=== PATIENT | female | born 1960 | race Caucasian/White ===

== ENCOUNTER → 2017-12-28 00:12 | Outpatient (CLI) | payer MEDICAID, SELFPAY ==
--- NOTE | 2017-12-28 10:35 | MERGE_ITS ---
*[facility]* *[facility]* [address] [place] [address] Date of study: 12/28/2017 Transthoracic Echocardiography M-mode, complete 2D, complete spectral Doppler, and color Doppler *STUDY CONCLUSIONS* Summary: 1. Left ventricle: Systolic function was mildly reduced. The estimated ejection fraction was 45-50%. Diffuse hypokinesis. Moderate hypokinesis of the apical myocardium. There was no evidence of elevated ventricular filling pressure by Doppler parameters. 2. Aortic valve: There was moderate regurgitation. 3. Mitral valve: There was moderate regurgitation. 4. Right ventricle: The cavity size was normal. Wall thickness was normal. Systolic function was normal. 5. Atrial septum: No defect or patent foramen ovale was identified. 6. Tricuspid valve: There was moderate regurgitation. 7. Pulmonary arteries: Pulmonary systolic pressure was in the range of 30mm Hg to 40mm Hg. 8. Inferior vena cava: The vessel was patent and normal in size. The respirophasic diameter changes were in the normal range (greater than or equal to 50%), consistent with normal central venous pressure. *PATIENT PRESENTATION* Height: 167.6cm ((66in) ) S/D Pressure: 120 / 73 Weight: 71.7kg ((157.7lb) ) BSA: 1.84m^2 Test start time: 12:40 PM. Test stop time: 01:40 PM. PERFORMING Unknown PERFORMING [facility] ORDERING Rashida Munoz REFERRING Rashida Munoz VEHICLE MAINTENANCE TECHNICIAN RT Areli (R)(TAY), TABITHA *PROCEDURE DATA* Procedure information: This study was interpreted by [facility]. Pertinent images and digital data are archived for permanent storage and are available for subsequent review. No prior study was available for comparison. Study status: Routine. Transthoracic echocardiography. M-mode, complete 2D, complete spectral Doppler, and color Doppler. A Transthoracic Echocardiogram was performed. Scanning was performed from the parasternal, apical, subcostal, and suprasternal notch acoustic windows. Images were obtained using an [id number] cardiac ultrasound machine. Image quality was adequate. Study completion: The patient tolerated the procedure well. History: PMH: Harsh s2 new systolic murmur. *CARDIAC ANATOMY* Left ventricle: Systolic function was mildly reduced. The estimated ejection fraction was 45-50%. Diffuse hypokinesis. Regional wall motion abnormalities: Moderate hypokinesis of the apical myocardium. The tissue Doppler parameters were normal. Diastolic parameters were normal for age. There was no evidence of elevated ventricular filling pressure by Doppler parameters. Aortic valve: Trileaflet. Doppler: There was no stenosis. There was moderate regurgitation. VTI ratio of LVOT to aortic valve: 0.64. Valve area (VTI): 2.3cm^2. Indexed valve area (VTI): 1.2cm^2/m^2. Peak velocity ratio of LVOT to aortic valve: 0.63. Valve area (Vmax): 2.3cm^2. Indexed valve area (Vmax): 1.2cm^2/m^2. Mean velocity ratio of LVOT to aortic valve: 0.62. Valve area (Vmean): 2.2cm^2. Indexed valve area (Vmean): 1.2cm^2/m^2. Mean gradient (S): 7.3mm Hg. Peak gradient (S): 13.8mm Hg. Aorta: Aortic root: The aortic root was normal in size. Ascending aorta: The ascending aorta was normal in size. Mitral valve: Doppler: There was no evidence for stenosis. There was moderate regurgitation. Valve area by pressure half-time: 4.5cm^2. Indexed valve area by pressure half-time: 2.4cm^2/m^2. Peak gradient (D): 2.2mm Hg. Left atrium: The atrium was normal in size. Atrial septum: No defect or patent foramen ovale was identified. Right ventricle: The cavity size was normal. Wall thickness was normal. Systolic function was normal. Pulmonic valve: Doppler: There was no evidence for stenosis. There was no significant regurgitation. Peak gradient (S): 4.4mm Hg. Tricuspid valve: Doppler: There was moderate regurgitation. Pulmonary artery: Poorly visualized. Pulmonary systolic pressure was in the range of 30mm Hg to 40mm Hg. Right atrium: The atrium was normal in size. Pericardium: There was no pericardial effusion. Systemic veins: Inferior vena cava: Well visualized. The vessel was patent and normal in size. The respirophasic diameter changes were in the normal range (greater than or equal to 50%), consistent with normal central venous pressure. Measurements Left ventricle Value Reference LV ID, ED, PLAX 4.6 cm 3.5 - 6.0 LV ID, ES, PLAX 3.4 cm 2.1 - 4.0 LV PW thickness, ED, PLAX 0.9 cm LV end-diastolic volume, 1-p A2C 114 ml LV ejection fraction, 1-p A2C 52 % LV end-diastolic volume, 1-p A4C 110 ml LV ejection fraction, 1-p A4C 46 % LV e', lateral 0.109 m/sec LV E/e', lateral 7 LV e', medial 0.077 m/sec LV E/e', medial 10 LV e', average 0.093 m/sec LV E/e', average 8 Ventricular septum Value Reference IVS thickness, ED, PLAX 1.2 cm LVOT Value Reference LVOT ID, A-P 2.1 cm LVOT area 3.6 cm^2 LVOT peak velocity, S 1.17 m/sec LVOT mean velocity, S 0.8 m/sec LVOT VTI, S 26.2 cm LVOT peak gradient, S 5.5 mm Hg LVOT mean gradient, S 2.9 mm Hg Stroke volume (SV), LVOT DP 94 ml Stroke index (SV/bsa), LVOT DP 51 ml/m^2 Aortic valve Value Reference Aortic valve peak velocity, S 1.9 m/sec Aortic valve mean velocity, S 1.29 m/sec Aortic valve VTI, S 41.2 cm Aortic mean gradient, S 7.3 mm Hg Aortic peak gradient, S 13.8 mm Hg VTI ratio, LVOT/AV 0.64 Aortic valve area, VTI 2.3 cm^2 Velocity ratio, peak, LVOT/AV 0.63 Aortic valve area, peak velocity 2.3 cm^2 Velocity ratio, mean, LVOT/AV 0.62 Aortic valve area, mean velocity 2.2 cm^2 Aortic valve area/bsa, mean velocity 1.2 cm^2/m^2 Aortic regurg deceleration 397 cm/s^2 Aortic regurg pressure half-time 333 ms Aorta Value Reference Aortic root ID, ED 3.4 cm Ascending aorta ID, A-P, S 2.8 cm Left atrium Value Reference LA ID, A-P, ES 3.6 cm LA ID/bsa, A-P 2.0 cm/m^2 <=2.2 LA area, ES, A4C 19.8 cm^2 8.8 - 23.4 LA area, ES, A2C 19 cm^2 LA volume/bsa, ES, 1-p A4C 39 ml/m^2 LA volume, ES, 2-p 62 ml LA volume/bsa, ES, 2-p 34 ml/m^2 LA/aortic root ratio 1.05 Mitral valve Value Reference Mitral E-wave peak velocity 0.75 m/sec Mitral A-wave peak velocity 0.79 m/sec Mitral deceleration time 169 ms 150 - 230 Mitral pressure half-time 49 ms Mitral peak gradient, D 2.2 mm Hg Mitral E/A ratio, peak 0.95 Mitral valve area, PHT, DP 4.5 cm^2 Pulmonary veins Value Reference Pulmonary vein peak velocity, S 0.63 m/sec Pulmonary vein peak velocity, D 0.45 m/sec Pulmonary vein velocity ratio, peak, 1.39 S/D Tricuspid valve Value Reference Tricuspid regurg peak velocity 2.9 m/sec Tricuspid peak RV-RA gradient 34.4 mm Hg Right atrium Value Reference RA area, ES, A4C 14.2 cm^2 8.3 - 19.5 Pulmonic valve Value Reference Pulmonic peak gradient, S 4.4 mm Hg Legend: (L) and (H) debbie values outside specified reference range. I have personally reviewed the images and have reviewed and edited the reported findings. Electronically signed by Hammad Granados MD 12/28/2017 18:10
== END ==
PROVIDERS: PCP Physician Assistant Medical; Visit Provider Psychiatry & Neurology Neurology
DX: R01.1 Cardiac murmur, unspecified (principal); I08.3 Combined rheumatic disorders of mitral, aortic and tricuspid valves
CPT/HCPCS: 93306

== ENCOUNTER → 2018-01-01 01:06 | Outpatient (CLI) | payer MEDICAID, SELFPAY ==
--- NOTE | 2018-01-01 09:19 | DI.REPORT_ITS ---
SYMPTOM/DIAGNOSIS: RIGHT HAND JOINT PAIN M79.643, LEFT HAND POINT PAIN M79.643 RIGHT HAND: Three views. No priors. There is mild periarticular spurring seen at the interphalangeal joints of the hand. The findings are most marked at the DIP joints of the index, ring and little fingers. The metacarpal phalangeal joints are well maintained as are the joints in the wrist. No acute fracture, dislocation, lytic or sclerotic lesions is seen. The soft tissues are unremarkable. IMPRESSION: Mild degenerative changes of the right hand. LEFT HAND: Three views. No priors. Mild periarticular spurring is seen at the interphalangeal joints of the hand. The findings are most marked at the DIP joint of the left little finger. The metacarpal phalangeal joints and joints in the wrist are unremarkable. The bones are intact and normally mineralized. The soft tissues are unremarkable. IMPRESSION: Mild degenerative changes of the left hand.
== END ==
PROVIDERS: PCP Physician Assistant Medical; Visit Provider Physician Assistant Medical
DX: M79.641 Pain in right hand (principal); M19.041 Primary osteoarthritis, right hand; M79.642 Pain in left hand; M19.042 Primary osteoarthritis, left hand
CPT/HCPCS: 73130

== ENCOUNTER 2018-02-19 00:35 | Outpatient (CLI) | payer MEDICAID, SELFPAY ==
--- NOTE | 2018-02-19 10:07 | DI.MAMMO_ITS ---
SYMPTOM/DIAGNOSIS: SCREENING, Z12.31, HEALTH MAINTENANCE, Z00.8 MAMMOGRAM: Mammograms were interpreted according to the usual protocol including computer analysis with CAD system, tomosynthesis and C view imaging. Comparison with prior examinations. Breast density B. No masses or microcalcifications are seen. There is nothing to suggest malignancy. IMPRESSION: Negative mammogram. Routine screening is recommended. Category I. MQSA ASSESSMENT OF FINDINGS: Negative. Category 1. Patient will receive a letter notifying them of these results. BI-RADS category B. There are scattered areas of fibroglandular density.
== END 2018-02-19 00:55 ==
PROVIDERS: PCP Physician Assistant Medical; Visit Provider Physician Assistant Medical
DX: Z12.31 Encounter for screening mammogram for malignant neoplasm of breast (principal)
CPT/HCPCS: 77063; 77067

== ENCOUNTER 2018-03-01 00:26 | Outpatient (CLI) | payer MEDICAID, SELFPAY ==
--- NOTE | 2018-03-01 10:10 | DI.RAD_ITS ---
SYMPTOMS/DIAGNOSIS: DIFFICULTY SWALLOWING, R13.10, GERD, K21.9 UPPER GI AND BARIUM SWALLOW: Fluoroscopy Time: 1 min 15 sec Routine examination was performed. PA and lateral chest was obtained. The heart size and pulmonary vasculature are within normal limits. The lungs are clear and well expanded. No effusions or pneumothoraces are identified. IMPRESSION: No acute pulmonary process. Barium swallow and upper GI was performed according to protocol. There is a normal swallowing mechanism. No gastroesophageal reflux or aspiration was identified during the examination. No strictures, ulcers, intrinsic or extrinsic masses are seen in the esophagus, stomach or proximal duodenum. IMPRESSION: Negative examination.
[2018-03-01] MEDS: Barium Sulfate 60% W/V 355 ML BTL PO (10:39)
== END 2018-03-01 00:46 ==
PROVIDERS: PCP Physician Assistant Medical; Visit Provider Physician Assistant Medical
DX: R13.19 Other dysphagia (principal); K21.9 Gastro-esophageal reflux disease without esophagitis
CPT/HCPCS: 74220; 74247; J3490

== ENCOUNTER 2018-06-07 09:20 | Emergency (ER) | payer MEDICAID, SELFPAY ==
[2018-06-07] VITALS (21 sets, daily range): BP systolic 102–139; BP diastolic 60–77; PULSE 52–71; RESP 16–20; TEMP 36.6–37; O2SAT 94–100
--- NOTE | 2018-06-07 09:30 | DI.RAD_ITS ---
SYMPTOMS/DIAGNOSIS: SOB, COUGH, PRODUCTIVE SPUTUM PORTABLE AP CHEST: Comparison is made with 4Oct18. The cardiac and mediastinal contours have a normal appearance. The lungs are reasonably well inflated and clear. No mass, infiltrate or effusion is seen. There are no visible emphysematous or fibrotic changes. IMPRESSION: Negative portable chest.
--- NOTE | 2018-06-07 09:52 | ED.GENADUL_ITS ---
Discharge Plan Disposition Patient Disposition: HOME Condition: Good Discharge Details Chief Complaint: SOB Clinical Impression: Bundle branch block, left, URI (upper respiratory infection), Cough Reason For Visit: JF Primary Care Provider: Shashi Verma ED Provider: Gm Zelaya Home Meds and New Rx's Prescriptions: New benzonatate [Tessalon Perles] 100 mg capsule 100 mg PO TID PRN (Reason: cough) Qty: 20 RF: 0 No Action conjugated estrogens [Premarin] 0.625 MG tablet 0.625 mg PO DAILY RF: 0 fluticasone 16 GM spray,suspension 50 mcg NS BID RF: 0 ibuprofen 800 MG tablet 800 mg PO TID RF: 0 tramadol [Ultram] 50 MG tablet 50 mg PO BID RF: 0 paroxetine HCl 20 MG tablet 20 mg PO DAILY RF: 0 lisdexamfetamine [Vyvanse] 70 MG capsule 70 mg PO DAILY RF: 0 lurasidone [Latuda] 40 MG tablet 40 mg PO DAILY RF: 0 gabapentin 300 MG capsule 300 mg PO BID RF: 0 trazodone 100 MG tablet 300 mg PO HS RF: 0 pantoprazole 40 MG tablet,delayed release (DR/EC) 40 mg PO DAILY RF: 0 polyethylene glycol 3350 17 GM powder in packet 17 gm PO Q2D RF: 0 docusate sodium [Colace] 100 MG capsule 100 mg PO DAILY PRN PRNRF: 0 levothyroxine 50 MCG tablet 50 mcg PO DAILY RF: 0 pramipexole 0.25 MG tablet 0.25 mg PO DAILY RF: 0 albuterol sulfate [ProAir HFA] 200 PUFF HFA aerosol inhaler 2 puff Inhalation Q4H PRN PRNRF: 0 Discharge Instructions Instructions: Upper Respiratory Infection (ED), Acute Cough (ED) Additional Instructions: Please take medications as directed. Please follow-up with your seamer operator, they will call for next appointment. If you notice any worsening of your symptoms, or any new symptoms such as vomiting, diarrhea, fever, chills, shortness of breath, chest pain, numbness, weakness, or fainting , please return immediately to the emergency department for reevaluation. Please follow up with your primary care provider as soon as possible for reassessment and reevaluation. As always, it was a pleasure participating in your medical care today. Referrals: Shashi Verma PA [Primary Care Provider] - Medical Decision Making This is a 58-year-old female who presents for evaluation of shortness of breath for last 7 days particularly worsening over the last 2 days. There is no associated chest pain, no exertional chest pain. She has no history of cardiac disease. Physical exam demonstrates clear lung sounds. She does have productive yellow sputum with her associated cough and some chills. She does have occasional loose stool. Physical exam is otherwise unremarkable, vital signs are reassuring. I feel the patient signs and symptoms are clinically consistent with a viral bronchitis versus potential pneumonia. Atypical Legi onella is on the differential with the patient's associated loose stool. I feel PE is less likely but with her estrogen use and clear lung sounds is also does remain on the differential. We will perform a cardiac workup, evaluate for any potential infectious etiology, and reassess 12: 20 Patient's laboratory workup is returned relatively benign, no significant abnormalities. Her d-dimer is elevated though, which does increase concern for PE. We will get a CT angiogram for further evaluation. Renal function is normal, urinalysis is benign. I do feel much of the patient's symptoms are r elated to an upper respiratory infection, most likely viral. Of note though the patient's EKG does show evidence of a left bundle branch block which does appear to be new compared to her EKG from 10/28/14. I did contact the seamer operator Dr. Sauceda, and discussed the case, and EKG findings with him. 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 Cardiology does recommend follow-up with a seamer operator though on an outpatient basis. Her echocardiogram from 12/28/17 has been included here. 1:06 PM Patient's laboratory workup, and CT image has returned negative per our radiologist Dr. Palacios. No acute process with a negative workup I feel the patient can be safely discharged home. I feel her signs and symptoms most likely secondary to a viral upper respiratory infection however there may be a mild cardiac component with the left bundle branch block. She has had an echocardiogram in December, however cardiology does recommend a new echo on an outpatient basis. We will set this up for her. I will give the patient an inhaler and Tessalon Perles for antitussive effect. Recommend close follow-up with her PCP. With 2- troponins, and an EKG that is not a STEMI equivalent I feel she can be discharged home with this close follow-up. This plan was discussed with cardiology and they do agree. I have extensively reviewed the treatment plan and discharge instructions with the patient. I have addressed all patient concerns at this time. The patient was made aware of what symptoms to monitor for that would warrant a return to the emergency department. Discussed the plan with the patient, they demonstrate verbal understanding and agreement with our assessment and plan at this time. 9: 52 EKG Rate 58, sinus bradycardia with a left bundle branch block, [place] 160, QTc 471, QRS 139, negative for SCARBOSSA criteria previous EKG from 10/28/14 demonstrates valentin l sinus rhythm at that time. Summary: 1. Left ventricle: Systolic function was mildly reduced. The estimated ejection fraction was 45-50%. Diffuse hypokinesis. Moderate hypokinesis of the apical myocardium. There was no evidence of elevated ventricular filling pressure by Doppler parameters. 2. Aortic valve: There was moderate regurgitation. 3. Mitral valve: There was moderate regurgitation. 4. Right ventricle: The cavity size was normal. Wall thickness was normal. Systolic function was normal. 5. Atrial septum: No defect or patent foramen ovale was identified. 6. Tricuspid valve: There was moderate regurgitation. 7. Pulmonary arteries: Pulmonary systolic pressure was in the range of 30mm Hg to 40mm Hg. 8. Inferior vena cava: The vessel was patent and normal in size. The respirophasic diameter changes were in the normal range (greater than or equal to 50%), consistent with normal central venous pressure. HPI General Date/Time Provider Initiated Documentation: 06/07/18 09:28 . HPI Narrative: This is a 58-year-old female with a past medical history of anxiety and PTSD who presents today for evaluation of cough and shortness of breath. The patient states that for the last 7 days she has felt fatigued, and during the last 2 days she has noticed difficulty breathing, and mild shortness of breath. She denies any significant chest pain, chest pressure, arm, neck, or shoulder pain. She does admit to productive cough with yellow and green sputum. She does admit to subjective chills but denies any fever. She also does admit to occasional loose stool over the last 2 days. She denies any recent antibiotic use, foreign travel, or other sick contacts with diarrhea. She denies any recent contact with cold air conditioners or water towers. Patient does take estrogen secondary to a history of a hysterectomy. Patient denies any other complaints. Denies PE risk factors such as recent long car rides, immobilization, recent surgery, prior history of DVT or PE, family history of PE or DVT, morbid obesity, current smoking, hemoptysis, history of cancer. She denies any history of COPD. Related Data Home Medications Medication Instructions Recorded Confirmed pantoprazole 40 mg PO DAILY 01/18/13 12/21/17 trazodone 300 mg PO HS 01/18/13 12/21/17 conjugated estrogens [Premarin] 0.625 mg PO DAILY 01/21/15 12/21/17 fluticasone 50 mcg NS BID spray 01/21/15 08/29/17 albuterol sulfate [ProAir HFA] 2 puff INHALATION Q4H PRN PRN 08/29/17 12/21/17 docusate sodium [Colace] 100 mg PO DAILY PRN PRN 08/29/17 12/21/17 levothyroxine 50 mcg PO DAILY 08/29/17 12/21/17 polyethylene glycol 3350 17 gm PO Q2D 08/29/17 12/21/17 pramipexole 0.25 mg PO DAILY 08/29/17 12/21/17 ibuprofen 800 mg PO TID tab-cap 11/01/17 lisdexamfetamine [Vyvanse] 70 mg PO DAILY tab-cap 11/01/17 12/21/17 lurasidone [Latuda] 40 mg PO DAILY tab-cap 11/01/17 12/21/17 paroxetine HCl 20 mg PO DAILY tab-cap 11/01/17 12/21/17 tramadol [Ultram] 50 mg PO BID tab-cap 11/01/17 12/21/17 gabapentin 300 mg PO BID tab-cap 01/24/18 benzonatate [Tessalon Perles] 100 mg PO TID PRN #20 cap 06/07/18 Previous Rx's Medication Instructions Recorded benzonatate [Tessalon Perles] 100 mg PO TID PRN #20 cap 06/07/18 Allergies Allergy/AdvReac Type Severity Reaction Status Date / Time oxycodone HCl Allergy Mild Itching Unverified 01/24/18 14:00 [From OxyContin] diazepam [From Valium] AdvReac Mild Increase Unverified 01/24/18 14:00 of depressive symptoms General Stated Complaint: SOB ADINA: 3 Review of Systems Review of Systems All systems reviewed & are unremarkable except as noted in HPI and below PFSH Medical History Bipolar I disorder Hyperlipidemia IBS (irritable bowel syndrome) Iron deficiency anemia Obesity Surgical History Abdominal hysterectomy Colonoscopy - MAC EGD - MAC Replacement of total knee joint Family History Mother No problems noted. Father No problems noted. Social History Smoking/Tobacco Use Status: Never Exam Narrative Exam Narrative: 1.Const: Well-nourished, Well-developed, appearing stated age 2.Eyes: PERRL, no conjunctival injection, and symmetrical lids. 3.ENT: Atraumatic external nose and ears. Moist MM. Neck: Symmetric, trachea midline, No thyromegaly. 4.CVS: +S1/S2, No murmurs or gallops. Peripheral pulses 2+ and equal in all extremities. Brisk capillary refill in all extremities. 5.RESP: Unlabored respiratory effort. Clear to auscultation bilaterally. No wheezes rales or rhonchi. 6.GI: Soft, Nontender/Nondistended, No hepatosplenomegaly. No guarding or rebound. No abdominal tenderness. 7.MSK: Normocephalic/Atraumatic, Extremities w/o deformity or ttp No cyanosis or clubbing, Normal movement of all extremities. No calf tenderness. 8.Skin: Warm, Dry. No rashes or lesions. 9.Neuro: backroom associate II-XII grossly intact. Sensation grossly intact, no focal neurologic deficits. 10.Psych: (AAO) x3. Appropriate mood and affect Course Vital Signs Temperature 36.6 C 06/07/18 09:22 Pulse 61 06/07/18 09:22 Respiratory Rate 20 06/07/18 09:22 Blood Pressure 127/66 06/07/18 09:22 Pulse Oximetry 99 06/07/18 09:22 Temperature 36.6 C 06/07/18 09:22 Temperature Source Temporal Artery Scan 06/07/18 09:22 Pulse 61 06/07/18 09:22 Respiratory Rate 16 01/10/19 09:31 Respiratory Effort 06/07/18 09:31 Respiratory Depth Shallow 06/07/18 09:31 Respiratory Pattern Normal 06/07/18 09:31 Blood Pressure 127/66 06/07/18 09:22 Blood Pressure Position Sitting 06/07/18 09:22 Pulse Oximetry 99 06/07/18 09:22 Oxygen Delivery Method Room Air 06/07/18 09:22 Oxygen Flow Rate 0 06/07/18 09:22
[2018-06-07 09:58] LABS: Abs Immature Grans 0.01 k/cumm (0.0-0.09); Absolute Basophil Count 0.02 k/cumm (0.0-0.2); Absolute Eosinophil Count 0.08 k/cumm (0.0-0.7); Absolute Lymphocyte Count 0.92 k/cumm (1.2-3.4); Absolute Neutrophil Count 4.11 k/cumm (1.2-6.7); Basophils % 0.4; Eosinophils % 1.4; HCT 43.5 % (36.0-46.0); HGB 14.4 g/dL (12.0-15.5); Immature Grans % 0.2; Lymphocytes % 16.3; Mean Corp. HGB Concentration 33.1 g/dL (32.0-36.0); Mean Corpuscular Hemoglobin 29.4 pg (27.0-33.0); Mean Platelet Volume 9.4 fL (8.0-11.0); Monocytes % 8.9; Neutrophils % 72.8; Platelet Count 197 x1000/uL (130-400); RBC 4.89 m/cumm (4.00-5.20); White Blood Cell Count 5.64 k/cumm (4.4-10.8)
[2018-06-07 10:13] LABS: ALT 32 U/L (12-78); AST 25 U/L (15-37); Albumin 4.1 g/dL (3.4-5.0); Alkaline Phosphatase 80 U/L (46-116); Anion Gap 7.8 mmol/L (3-11); BUN 10 mg/dL (7-18); Bilirubin, Total 0.6 mg/dL (0.2-1.0); CO2 33.2 mmol/L (21.0-32.0); CREATININE 0.71 mg/dL (0.55-1.02); Calcium 9.7 mg/dL (8.5-10.1); Chloride 98 mmol/L (98-107); Glucose 102 mg/dL (70-100); Potassium 4.2 mmol/L (3.5-5.1); Sodium 139 mmol/L (136-145); Total Protein 7.9 g/dL (6.4-8.2)
[2018-06-07 10:14] LABS: Troponin I < 0.02 ng/mL (0.00-0.06)
[2018-06-07 10:28] LABS: D-Dimer 637 ng/mlFEU (<500)
[2018-06-07] MEDS: Normal Saline Flush 10 ML SYR IVP (10:32)
--- NOTE | 2018-06-07 10:53 | DI.CT_ITS ---
SYMPTOMS/DIAGNOSIS: ELEVATED D DIMER CHEST CT FOR PULMONARY EMBOLISM: CT angiography was performed with multi slice acquisition and multi planar and 3D reconstruction. There is no evidence of pulmonary emboli or aortic dissection. The lungs appear clear. No pleural or pericardial effusions are seen. There is a tiny hiatal hernia. There is some artifact on the images of the upper abdomen secondary to the patient's arm position. No gross abnormality is identified in the liver. IMPRESSION: No acute abnormality.
[2018-06-07 11:16] LABS: Bilirubin Negative (Negative); Blood Negative (Negative); Clarity Clear; Glucose Negative (Negative); Ketones Negative (Negative); Leukocyte Esterase Negative (Negative); Nitrite Negative (Negative); Specific Gravity 1.015 (1.005-1.025); Urobilinogen 0.2 EU/dL (Up TO 0.2); pH 8.5 (5-8)
[2018-06-07 12:53] LABS: Troponin I < 0.02 ng/mL (0.00-0.06)
[2018-06-07] MEDS: Omnipaque 350 MG/ML 100 ML BTL IJ (12:55)
--- NOTE | 2018-06-08 13:49 | PDOC.ERCMPRO ---
Care Management Progress Note 06/08-Dr. Zelaya requested assistance with a cardiology appt within a month for new left bundle branch block. Referral faxed to cardiology this am.
== END 2018-06-07 13:29 | disposition home or self-care (01) ==
PROVIDERS: Emergency Provider Student in an Organized Health Care Education/Training Program; PCP Physician Assistant Medical
DX: I44.7 Left bundle-branch block, unspecified (principal); J06.9 Acute upper respiratory infection, unspecified
CPT/HCPCS: 36415; 71275; 80053; 87449; 93005; 99285; 71045; 81003; 84484; 85025; 85379; 93010; 99284; J3490

== ENCOUNTER 2018-09-20 09:07 | Outpatient (CLI) | payer MEDICAID, SELFPAY ==
[2018-09-20 09:46] LABS: Abs Immature Grans 0.01 k/cumm (0.0-0.09); Absolute Basophil Count 0.02 k/cumm (0.0-0.2); Absolute Eosinophil Count 0.08 k/cumm (0.0-0.7); Absolute Lymphocyte Count 1.76 k/cumm (1.2-3.4); Absolute Monocyte Count 0.38 k/cumm (0.11-0.7); Absolute Neutrophil Count 1.41 k/cumm (1.2-6.7); Basophils % 0.5; Eosinophils % 2.2; HGB 12.9 g/dL (12.0-15.5); Immature Grans % 0.3; Lymphocytes % 48.1; Mean Corp. HGB Concentration 33.1 g/dL (32.0-36.0); Mean Corpuscular Hemoglobin 29.7 pg (27.0-33.0); Mean Corpuscular Volume 89.9 fL (80-95); Mean Platelet Volume 9.5 fL (8.0-11.0); Monocytes % 10.4; Neutrophils % 38.5; Platelet Count 203 x1000/uL (130-400); RBC 4.34 m/cumm (4.00-5.20); RBC Distribution Width 12.6 % (11.7-14.6); White Blood Cell Count 3.66 k/cumm (4.4-10.8)
[2018-09-20 09:54] LABS: Hemoglobin A1C 5.2 % (4.5-6.2)
[2018-09-20 11:13] LABS: Vitamin D 25 Total 26.4 ng/ml (30-100)
[2018-09-20 11:16] LABS: ALT 36 U/L (12-78); AST 38 U/L (15-37); Albumin 3.9 g/dL (3.4-5.0); Alkaline Phosphatase 68 U/L (46-116); Anion Gap 8.3 mmol/L (3-11); BUN 17 mg/dL (7-18); Bilirubin, Total 0.9 mg/dL (0.2-1.0); CO2 29.7 mmol/L (21.0-32.0); CREATININE 0.65 mg/dL (0.55-1.02); Calcium 9.1 mg/dL (8.5-10.1); Chloride 101 mmol/L (98-107); Cholesterol 263 mg/dL (50-200); Glucose 88 mg/dL (70-100); HDL Cholesterol 98 mg/dL (40-60); LDL CHOLESTEROL 155 mg/dL (<100); Magnesium 1.8 mg/dL (1.8-2.4); Potassium 3.9 mmol/L (3.5-5.1); Sodium 139 mmol/L (136-145); TSH 2.86 uIU/mL (0.358-3.74); Total Protein 6.8 g/dL (6.4-8.2); Triglyceride 28 mg/dL (30-150); Vitamin B12 905 pg/mL (193-986)
== END 2018-09-20 09:27 ==
PROVIDERS: PCP Physician Assistant Medical; Visit Provider Nurse Practitioner Psychiatric/Mental Health
DX: F33.0 Major depressive disorder, recurrent, mild (principal)
CPT/HCPCS: 36415; 80053; 80061; 82306; 83721; 82607; 83036; 83735; 84443; 85025

== ENCOUNTER 2018-10-15 21:40 | Outpatient (REF) | payer MEDICAID, SELFPAY ==
[2018-10-17 11:14] LABS: Lyme Ab w Rflx to Lyme Confirm Negative
[2018-10-18 00:19] LABS: Anaplasma phagocytophilum Negative (Negative); B. miyamotoi PCR Negative (Negative); Babesia divergens/MO-1 Negative (Negative); Babesia duncani Negative (Negative); Babesia microti Negative (Negative); Ehrlichia chaffeensis Negative (Negative); Ehrlichia ewingii/canis Negative (Negative); Ehrlichia muris eauclairensis Negative (Negative)
== END 2018-10-15 22:00 ==
LOC: NCHCN 21:40
PROVIDERS: PCP Physician Assistant Medical; Visit Provider Physician Assistant Medical
DX: M25.50 Pain in unspecified joint (principal)
CPT/HCPCS: 86618; 87798

== ENCOUNTER 2018-10-29 00:31 | Outpatient (CLI) | payer MEDICAID, SELFPAY ==
--- NOTE | 2018-10-29 08:35 | DI.RAD_ITS ---
SYMPTOM/DIAGNOSIS: NECK PAIN, M54.2, LOW BACK PAIN, M54.5 CERVICAL SPINE: Five views were obtained. The intervertebral disc spaces are fairly well maintained. Mild hypertrophic spurring of the vertebral endplates and articular facets is noted. Neural foramina appear fairly well maintained on oblique views. No other significant bony abnormality is seen. CONCLUSION: Mild DJD of the cervical spine. LUMBOSACRAL SPINE: Five views were obtained. The intervertebral disc spaces appear fairly well maintained. There are hypertrophic changes involving vertebral endplates, particularly at L 2-3 and there are hypertrophic changes involving the articular facets as well. There is a slight left convex lumbar scoliosis. There is no evidence of spondylolysis or spondylolisthesis. No fracture is seen. CONCLUSION: Degenerative changes of the lumbar spine as described above.
== END 2018-10-29 00:51 ==
PROVIDERS: PCP Physician Assistant Medical; Visit Provider Physician Assistant Medical
DX: M54.2 Cervicalgia (principal); M54.5 Low back pain; M47.812 Spondylosis without myelopathy or radiculopathy, cervical region; M47.816 Spondylosis without myelopathy or radiculopathy, lumbar region
CPT/HCPCS: 72050; 72110

== ENCOUNTER 2019-02-22 01:46 | Outpatient (CLI) | payer MEDICAID, SELFPAY ==
--- NOTE | 2019-02-22 10:00 | DI.NM_ITS ---
EXAM: NM BONE SCAN 3 PHASE CLINICAL HISTORY: S/P RT KNEE REPLACEMENT, Z96.651. TECHNIQUE: Three-phase bone scan was performed with intravenous infusion of 26 millicuries of techne tium 99 labeled methylene diphosphonate. COMPARISON: [facility] RESTING AND STRESS from 12/08/2014 FINDINGS: Immediate imaging of the knees is unremarkable and blood pool images are unremarkable. There are bila teral knee replacements with mildly increased uptake seen adjacent to the femoral and tibial componen ts bilaterally. No suspicious focal area of increased uptake noted associated with the knees to sugge st loosening or infection. Whole-body scanning is essentially unremarkable. IMPRESSION: Bilateral knee replacements noted. No specific findings to suggest infection and/or loosening.
--- NOTE | 2019-02-22 10:40 | DI.RAD_ITS ---
EXAM: XR SHOULDER LT COMPLETE 2+V INDICATION: lt anterior shoulder pain, M25.512. COMPARISON: XR PORTABLE CHEST AP from 06/07/2018 TECHNIQUE: 2D digital imaging was performed. FINDINGS: Five views were obtained. There are mild hypertrophic degenerative changes the acromioclavicular navdeep nt. Mild spurring the glenoid and humeral head noted. Cartilaginous joint space of the glenohumeral joint appears fairly well maintained. There is minimal soft tissue calcification adjacent to the eddy praspinatus attachment on the humerus which could be associated with the calcific peritendinitis. No other significant bony or soft tissue abnormality seen IMPRESSION:
== END 2019-02-22 02:06 ==
PROVIDERS: PCP Physician Assistant Medical; Visit Provider Nurse Practitioner
DX: Z96.653 Presence of artificial knee joint, bilateral (principal); Z47.1 Aftercare following joint replacement surgery; M25.512 Pain in left shoulder; M19.012 Primary osteoarthritis, left shoulder
CPT/HCPCS: 73030; 78315

== ENCOUNTER 2019-03-14 00:23 | Outpatient (CLI) | payer MEDICAID, SELFPAY ==
--- NOTE | 2019-03-14 15:23 | DI.MAMMO_ITS ---
EXAM: MAMMO SCREENING CLINICAL HISTORY: SCREENING, Z12.31, PREVENTATIVE CARE, Z00.00 TECHNIQUE: Mammograms were interpreted according to the usual protocol including computer analysis w [employer] CAD system, tomosynthesis and C-view imaging. COMPARISON: 2009 through 2017 FINDINGS: The breasts are composed of scattered fibroglandular densities, Breast Density category B. No suspic ious masses or suspicious microcalcifications are seen. No skin thickening or abnormal axillary lymp h nodes are seen. There has been no significant change from prior exams. IMPRESSION: Category 1, negative mammogram. Yearly screening mammography is recommended. BI-RADS Cat 1 - Negative Breast Density - Category B - Scattered areas of fibroglandular density
== END 2019-03-14 00:43 ==
PROVIDERS: PCP Physician Assistant Medical; Visit Provider Physician Assistant Medical
DX: Z12.31 Encounter for screening mammogram for malignant neoplasm of breast (principal)
CPT/HCPCS: 77063; 77067

== ENCOUNTER 2019-04-04 03:25 | Outpatient (CLI) | payer MEDICAID, SELFPAY | END 2019-04-04 03:45 | PROVIDERS: PCP Physician Assistant Medical; Visit Provider Nurse Practitioner Psychiatric/Mental Health | DX: F33.0 Major depressive disorder, recurrent, mild (principal); Z79.899 Other long term (current) drug therapy | CPT/HCPCS: 93005; 93010 ==

== ENCOUNTER 2019-05-14 14:55 | Outpatient (REF) | payer MEDICAID, SELFPAY ==
[2019-05-16 10:48] LABS: Hepatitis C Ab w Rflx HCV PCR Negative (Negative)
[2019-05-16 11:38] LABS: Syphilis Serology (RPR) Negative (Negative)
[2019-05-16 13:35] LABS: HIV-1/2 Ag & Ab Screen Negative (Negative)
[2019-05-16 13:36] LABS: Chlamydia Result Negative (Negative); GC Result Negative (Negative)
== END 2019-05-14 15:15 ==
LOC: NCHCN 14:55
PROVIDERS: PCP Physician Assistant Medical; Visit Provider Physician Assistant Medical
DX: Z11.3 Encounter for screening for infections with a predominantly sexual mode of transmission (principal); Z11.4 Encounter for screening for human immunodeficiency virus [HIV]; Z11.59 Encounter for screening for other viral diseases
CPT/HCPCS: 86803; 87389; 87491; 87591; 86592

== ENCOUNTER 2019-08-20 11:19 | Outpatient (REF) | payer MEDICAID, SELFPAY ==
[2019-08-22 13:38] LABS: SARS-CoV-2 RNA Undetected (Undetected); SARS-CoV-2 Specimen Source Nasopharynx
== END 2019-08-20 11:39 ==
LOC: NCHCN 11:19
PROVIDERS: PCP Physician Assistant Medical; Visit Provider Nurse Practitioner Family
DX: Z20.828 Contact with and (suspected) exposure to other viral communicable diseases (principal); R05 Cough
CPT/HCPCS: U0003

== ENCOUNTER 2019-12-12 01:18 | Outpatient (CLI) | payer MEDICAID, SELFPAY ==
--- NOTE | 2019-12-12 | DI.RAD_ITS ---
EXAM: XR CHEST 2V PA LATERAL CLINICAL HISTORY: COUGH R05, H/O FLU B 08/07/19, COVID NEG 08/20/19 TECHNIQUE: 2D digital imaging was performed. COMPARISON: CR XR SHOULDER LT COMPLETE 2+V from 02/22/2019 FINDINGS: The heart is not enlarged. The lungs are clear and well expanded. No pleural effusion seen. Mediastin al contours appear intact. IMPRESSION: Normal chest
[2019-12-12 10:15] LABS: Absolute Basophil Count 0.01 k/cumm (0.0-0.2); Absolute Eosinophil Count 0.13 k/cumm (0.0-0.7); Absolute Lymphocyte Count 1.67 k/cumm (1.2-3.4); Absolute Monocyte Count 0.48 k/cumm (0.11-0.7); Absolute Neutrophil Count 1.65 k/cumm (1.2-6.7); Basophils % 0.3; Eosinophils % 3.3; HCT 39.4 % (36.0-46.0); HGB 13.3 g/dL (12.0-15.5); Lymphocytes % 42.4; Mean Corp. HGB Concentration 33.8 g/dL (32.0-36.0); Mean Platelet Volume 9.1 fL (8.0-11.0); Monocytes % 12.2; Neutrophils % 41.8; Platelet Count 263 x1000/uL (130-400); RBC 4.58 m/cumm (4.00-5.20); RBC Distribution Width 12.6 % (11.7-14.6); White Blood Cell Count 3.94 k/cumm (4.4-10.8)
[2019-12-12 11:36] LABS: Anion Gap 11.7 mmol/L (3-11); BUN 11 mg/dL (7-18); CO2 24.3 mmol/L (21.0-32.0); CREATININE 0.68 mg/dL (0.55-1.02); Calcium 9.2 mg/dL (8.5-10.1); Chloride 101 mmol/L (98-107); Glucose 103 mg/dL (74-106); Potassium 4.4 mmol/L (3.5-5.1); Sodium 137 mmol/L (136-145)
== END 2019-12-12 01:38 ==
LOC: DI 01:19 → LBO 09:56
PROVIDERS: PCP Physician Assistant Medical; Visit Provider Physician Assistant Medical
DX: R05 Cough (principal)
CPT/HCPCS: 36415; 80048; 71046; 85025

== ENCOUNTER 2020-05-05 01:18 | Outpatient (CLI) | payer MEDICAID, SELFPAY ==
--- NOTE | 2020-05-05 | DI.MAMMO_ITS ---
EXAM: MG MAMMO SCREENING CLINICAL HISTORY: SCREENING, PREVENTATIVE CARE,Z00.00 TECHNIQUE: Mammograms were interpreted according to the usual protocol including computer analysis w [employer] system, tomosynthesis and C-view imaging. COMPARISON: FINDINGS: Breasts are of moderate density. There are multiple areas of focal asymmetric density seen in both b reasts. No dominant mass or clumped microcalcification seen. Comparison with multiple previous mamm ograms including February 2019 and February 2015 shows no significant interval change in appearance in comparison with the prior studies. IMPRESSION: No specific evidence of malignancy at this time. Routine screening examinations are suggested at yea rly intervals in this age group according to the ACS ACR guidelines. BI-RADS Category 1 - Negative Breast Density - Category B - Scattered areas of fibroglandular density
== END 2020-05-05 01:38 ==
PROVIDERS: PCP Physician Assistant Medical; Visit Provider Physician Assistant Medical
DX: Z12.31 Encounter for screening mammogram for malignant neoplasm of breast (principal); Z00.00 Encounter for general adult medical examination without abnormal findings
CPT/HCPCS: 77063; 77067

== ENCOUNTER 2020-08-05 21:18 | Outpatient (REF) | payer MEDICAID, SELFPAY ==
[2020-08-05 20:26] LABS: Hemoglobin A1C 5.7 % (<5.7)
[2020-08-05 20:41] LABS: Anion Gap 10.5 mmol/L (3-11); BUN 17 mg/dL (7-18); CO2 25.5 mmol/L (21.0-32.0); CREATININE 0.7 mg/dL (0.55-1.02); Calcium 8.9 mg/dL (8.5-10.1); Calculated LDL 149 mg/dL (<100); Chloride 101 mmol/L (98-107); Cholesterol 238 mg/dL (<200); Glucose 105 mg/dL (74-106); HDL Cholesterol 67 mg/dL (40-60); Potassium 4.7 mmol/L (3.5-5.1); Sodium 137 mmol/L (136-145); TSH (W/Ref FT4) 1.58 uIU/mL (0.36-3.74); Triglyceride 113 mg/dL (<150)
== END 2020-08-05 21:19 | disposition home or self-care (01) ==
LOC: NCHCN 21:18
PROVIDERS: PCP Physician Assistant Medical; Visit Provider Physician Assistant Medical
DX: R03.0 Elevated blood-pressure reading, without diagnosis of hypertension (principal); R73.9 Hyperglycemia, unspecified
CPT/HCPCS: 80048; 80061; 83036; 84443

== ENCOUNTER 2020-10-09 13:55 | Outpatient (REF) | payer MEDICAID, SELFPAY ==
[2020-10-09 16:20] LABS: Abs Immature Grans 0.01 10^3/uL (0.0-0.06); Absolute Basophil Count 0.03 10^3/uL (0.0-0.2); Absolute Lymphocyte Count 1.81 10^3/uL (1.2-3.4); Absolute Monocyte Count 0.53 10^3/uL (0.1-0.8); Absolute Neutrophil Count 2.14 10^3/uL (1.2-6.7); Basophils % 0.6; Eosinophils % 2.2; HCT 41.2 % (36.0-46.0); HGB 13.3 g/dL (11.2-15.7); Immature Grans % 0.2; Lymphocytes % 39.2; MCH 28.4 pg (27.0-33.0); MCHC 32.3 % (32.0-36.0); MCV 87.8 fL (80-95); MPV 9.6 fL (8.0-11.0); Monocytes % 11.5; Neutrophils % 46.3; Nucleated RBC 0 %; Platelet Count 295 10^3/uL (130-400); RBC 4.69 10^6/uL (3.93-5.22); RDW 12.6 % (11.7-14.6); RDW-SD 40.5 fL; WBC 4.62 10^3/uL (4.4-10.8)
[2020-10-09 16:35] LABS: ALT 26 U/L (14-59); AST 21 U/L (15-37); Albumin 4.1 g/dL (3.4-5.0); Alkaline Phosphatase 118 U/L (46-116); Anion Gap 8.9 mmol/L (3-11); BUN 10 mg/dL (7-18); Bilirubin, Total 0.6 mg/dL (0.2-1.0); CO2 28.1 mmol/L (21.0-32.0); CREATININE 0.7 mg/dL (0.55-1.02); Calcium 9.2 mg/dL (8.5-10.1); Chloride 96 mmol/L (98-107); Glucose 94 mg/dL (74-106); Potassium 5.1 mmol/L (3.5-5.1); Sodium 133 mmol/L (136-145); Total Protein 7.2 g/dL (6.4-8.2)
== END 2020-10-09 13:56 | disposition home or self-care (01) ==
LOC: NCHCN 13:55
PROVIDERS: PCP Physician Assistant Medical; Visit Provider Physician Assistant Medical
DX: R10.32 Left lower quadrant pain (principal)
CPT/HCPCS: 80053; 85025

== ENCOUNTER 2020-10-22 01:49 | Outpatient (CLI) | payer MEDICAID, SELFPAY ==
--- NOTE | 2020-10-22 | DI.CT_ITS ---
Exam(s) CT ABDOMEN PELVIS W EXAM: CT ABDOMEN PELVIS W INDICATION: LLQ ABD PAIN,R10.32. TECHNIQUE: FINDINGS: CT examination of the abdomen and pelvis was performed with a bolus infusion of 100 cc of Omnipaque 3 50. Images obtained through the lung bases are unremarkable. Note is made of a small to moderate-sized hiatal hernia. The liver is unremarkable in appearance. Gallbladder and bile ducts are CT normal. Pancreas appears normal. Spleen is unremarkable in appearance. Adrenals appear normal. The kidneys are unremarkable with no evidence of hydronephrosis, nephrolithiasis, or renal mass.. Ur inary bladder unremarkable. Abdominal aorta is of normal diameter and no major vascular abnormality is seen. No abdominal wall hernia. No abdominal or pelvic adenopathy. Uterus appears to be atrophic or absent. Appendix is normal. No evidence of diverticulitis or bowel obstruction. IMPRESSION: Negative CT examination of the abdomen and pelvis. RADIATION DOSE DELIVERED: 1,155.18mGy.cm Total DLP 1,155.18mGy.cm Total DLP RADIATION OPTIMIZATION: All CT scans at this facility use at least one of these dose optimization te chniques: automated exposure control; mA and/or kV adjustment per patient size (includes targeted exa ms where dose is matched to clinical indication); or iterative reconstruction.
[2020-10-22] MEDS: Omnipaque 350 MG/ML 100 ML BTL IJ (10:20)
[2020-10-22] MEDS: Normal Saline - Diluent 50 ML VIAL IV (10:20)
[2020-10-22] MEDS: Normal Saline Flush 10 ML SYR IVP (10:21)
[2020-10-22] MEDS: Breeza Beverage 473 ML BTL PO ×2 (10:22→10:23)
[2020-10-22] MEDS: Omnipaque 350 MG/ML 50 ML BTL PO (10:22)
== END 2020-10-22 02:09 ==
PROVIDERS: PCP Physician Assistant Medical; Visit Provider Physician Assistant Medical
DX: R10.32 Left lower quadrant pain (principal); K44.9 Diaphragmatic hernia without obstruction or gangrene
CPT/HCPCS: 74177; J3490; Q9967

== ENCOUNTER 2021-04-07 15:46 | Outpatient (REF) | payer MEDICAID, SELFPAY ==
[2021-04-08 00:44] LABS: Hemoglobin A1C 5.7 % (<5.7)
[2021-04-08 08:29] LABS: ALT 24 U/L (14-59); AST 17 U/L (15-37); Albumin 4.4 g/dL (3.4-5.0); Alkaline Phosphatase 116 U/L (46-116); Anion Gap 8.3 mmol/L (3-11); BUN 10 mg/dL (7-18); Bilirubin, Total 0.7 mg/dL (0.2-1.0); CO2 29.7 mmol/L (21.0-32.0); CREATININE 0.6 mg/dL (0.55-1.02); Calcium 9.5 mg/dL (8.5-10.1); Chloride 101 mmol/L (98-107); Glucose 99 mg/dL (74-106); Potassium 4.1 mmol/L (3.5-5.1); Sodium 139 mmol/L (136-145); Total Protein 7.5 g/dL (6.4-8.2)
== END 2021-04-07 15:47 | disposition home or self-care (01) ==
LOC: NCHCN 15:46
PROVIDERS: PCP Physician Assistant Medical; Visit Provider Physician Assistant Medical
DX: R42 Dizziness and giddiness (principal)
CPT/HCPCS: 80053; 83036

== ENCOUNTER 2021-05-06 02:14 | Outpatient (CLI) | payer MEDICAID, SELFPAY ==
--- NOTE | 2021-05-06 11:25 | DI.MAMMO_ITS ---
Exam(s) MAMMO SCREENING EXAM: MAMMO SCREENING CLINICAL HISTORY: PREVENTIVE CARE Z00.00 SCREENING MAMMO FOR BREAST CANCER. TECHNIQUE: Bilateral full field digital CC and MLO mammographic images were obtained with 3D tomosyn thesis and utilizing computer aided detection (CAD). COMPARISON: Prior mammograms dating back to 2011, the most recent being April 2020.. FINDINGS: There are no new spiculated masses nor malignant appearing microcalcification groups. There is no significant architectural distortion nor skin thickening-retraction. IMPRESSION: No radiographic evidence of malignancy. BI-RADS Category 1 - Negative Breast Density - Category B - Scattered areas of fibroglandular density Breast density Category C or D implies that the patient has dense breast tissue. Dense breast tissue can make it harder to find cancer on a mammogram. Dense breast tissue is also associated with an incr eased risk of breast cancer. This information about the result of the mammogram report was provided to the patient to raise their awareness. Use this report when you speak with the patient about their risks for breast cancer, which includes their family history. At that time, you may recommend additional screening tests (Ultrasoun d or MRI) as these tests may add significant information. A negative radiographic report should not delay biopsy if a dominant or clinically suspicious mass is present. Up to ten percent of cancers are not identified on mammography. A negative report may reinforce clinical impression. Adenosis and dense breasts may obscure an underlying neoplasm. False positive reports average 6 to 10%. Patient will receive a letter notifying them of these results.
== END 2021-05-06 02:34 ==
PROVIDERS: PCP Physician Assistant Medical; Visit Provider Physician Assistant Medical
DX: Z12.31 Encounter for screening mammogram for malignant neoplasm of breast (principal)
CPT/HCPCS: 77063; 77067

== ENCOUNTER 2021-07-13 11:22 | Outpatient (REF) | payer MEDICAID, SELFPAY ==
[2021-07-13 21:18] LABS: Abs Immature Grans 0.01 10^3/uL (0.0-0.06); Absolute Basophil Count 0.02 10^3/uL (0.0-0.2); Absolute Eosinophil Count 0.11 10^3/uL (0.0-0.7); Absolute Lymphocyte Count 1.52 10^3/uL (1.2-3.4); Absolute Monocyte Count 0.38 10^3/uL (0.1-0.8); Absolute Neutrophil Count 1.58 10^3/uL (1.2-6.7); Basophils % 0.6; HCT 40.4 % (36.0-46.0); HGB 13.3 g/dL (11.2-15.7); Immature Grans % 0.3; MCH 28.4 pg (27.0-33.0); MCHC 32.9 % (32.0-36.0); MCV 86.3 fL (80-95); MPV 9.8 fL (8.0-11.0); Monocytes % 10.5; Neutrophils % 43.6; Nucleated RBC 0 %; Platelet Count 287 10^3/uL (130-400); RBC 4.68 10^6/uL (3.93-5.22); RDW 12.6 % (11.7-14.6); RDW-SD 39.6 fL; WBC 3.62 10^3/uL (4.4-10.8)
[2021-07-13 21:41] LABS: Hemoglobin A1C 5.7 % (<5.7)
[2021-07-13 22:12] LABS: ALT 29 U/L (14-59); AST 26 U/L (15-37); Albumin 4.3 g/dL (3.4-5.0); Alkaline Phosphatase 102 U/L (46-116); Anion Gap 8.7 mmol/L (3-11); BUN 10 mg/dL (7-18); Bilirubin, Total 0.9 mg/dL (0.2-1.0); CO2 27.3 mmol/L (21.0-32.0); CREATININE 0.6 mg/dL (0.55-1.02); Calcium 9.5 mg/dL (8.5-10.1); Calculated LDL 146 mg/dL (<100); Chloride 99 mmol/L (98-107); Cholesterol 237 mg/dL (<200); Glucose 114 mg/dL (74-106); HDL Cholesterol 79 mg/dL (40-60); Magnesium 1.8 mg/dL (1.8-2.4); Sodium 135 mmol/L (136-145); TSH 2.25 uIU/mL (0.36-3.74); Total Protein 7.3 g/dL (6.4-8.2); Triglyceride 60 mg/dL (<150); Vitamin B12 1061 pg/mL (193-986)
[2021-07-13 22:13] LABS: Folate > 20.0 ng/mL (8.6-20.0)
[2021-07-13 22:33] LABS: C-Reactive Protein 0.22 mg/dL (0.0-0.3); FREE T4 1.02 ng/dL (0.76-1.46)
[2021-07-14 19:46] LABS: Ferritin 53 ng/mL (10-291)
[2021-07-15 06:13] LABS: Vitamin D 25 Total 27.5 ng/mL (30-100)
[2021-07-15 14:25] LABS: COVID-19 RT-PCR UVMMC Result Negative (Negative)
== END 2021-07-13 11:23 | disposition home or self-care (01) ==
LOC: NCHCN 11:22
PROVIDERS: PCP Physician Assistant Medical; Visit Provider Physician Assistant Medical
DX: Z20.822 Contact with and (suspected) exposure to COVID-19 (principal); R06.00 Dyspnea, unspecified; F33.2 Major depressive disorder, recurrent severe without psychotic features; F31.9 Bipolar disorder, unspecified; E55.9 Vitamin D deficiency, unspecified
CPT/HCPCS: 80053; 80061; 82306; U0003; 82607; 82728; 82746; 83036; 83735; 84439; 84443; 84481; 85025; 86140

== ENCOUNTER 2021-07-21 00:29 | Outpatient (CLI) | payer MEDICAID, SELFPAY ==
--- NOTE | 2021-07-21 | DI.RAD_ITS ---
Exam(s) XR CHEST 2V PA LATERAL EXAM: XR CHEST 2V PA LATERAL CLINICAL HISTORY: DYSPNEA R06.00 TECHNIQUE: 2D digital imaging was performed. COMPARISON: CR XR CHEST 2V PA LATERAL from 12/12/2019 FINDINGS: MEDIASTINUM: Normal. HEART: Normal. PULMONARY VASCULATURE: Normal. LUNGS: Clear. PLEURAL SPACE: No pleural effusion or pneumothorax. BONE:Unremarkable for age. IMPRESSION: No acute abnormality. DATA REPOSITORY: RADIATION DOSE DELIVERED:
--- OUTSIDE RECORDS SUMMARY | 2021-07-21 00:31 | XMS_ITS ---
:1960 Author Organization [facility] Address [address] [place] [address] Care Team Providers Name Role Phone Joseph Reynolds Unavailable Unavailable PROBLEMS Type Condition ICD9-CM [id number] Onset Condition SNOMED Cod e Code Code Dates Status Problem Foot pain, 729.5 Active 73681162 bilateral Problem Pes planus of 734 Active 037980 07 both feet Problem Hammertoe of M20.41 Active 1377261 605388878 right foot Problem Hammertoe of M20.42 Active 9604884 300540545 left foot Problem Acquired pes M21.6X2 Active 2243301 [id number] planovalgus of left foot Problem Arthralgia of M25.572 Active 345501 009 foot, left Problem Arthralgia of M25.571 Active 867446 009 foot, right Problem Acquired pes M21.41 Active 2992582 7 planovalgus of right foot ALLERGIES Substance Reaction Event Type Date Status OxyCODONE HCl Itchy Drug Allergy Jun, Active Valium interacts with other meds Drug Allergy Jun, Ac tive ENCOUNTERS Encounter Location Date Diagnosis [facility] Jun, Arthralgia of foot, left [address] [place], [place] M25.572 ; [place] [address] foot, right M25. 571 ; Acquired pes bharti novalgus of left foot M21 .6X2 ; Acquired pes bharti novalgus of right foot M2 1.41 ; Hammertoe of lef t foot M20.42 and Hamme rtoe of right foot M20.4 [address] [facility], [place] [address] [facility] [place] Jun, [place] [address] [facility] [address] 27 Apr, 2017 [place] [address] [facility] [address] [facility] 13 Jan, 2016 Arthralgia of foot, left [address] [place], [place] M25.572 ; [place] [address] foot, right M25. 571 ; Acquired pes bharti novalgus of left foot M21 .6X2 and Acquired pes bharti novalgus of right foot M2 1.41 [facility] [address] Nov, [place] [address] [facility] [address] [facility] Jun, Foot pain, bi lateral [address] [place], [place] 729.5 [place] [address] both feet 734 [facility] [address] [facility] May, [place] [address] IMMUNIZATIONS No Known Immunizations SOCIAL HISTORY Qualifiers Date Never Smoker REASON FOR REFERRAL FUNCTIONAL STATUS PLAN OF CARE Activity Details Follow Up prn Reason: VITAL SIGNS Height 65 in 2018-07-10 Height 65 in 2016-02-09 Height 65 in 2014-07-01 Weight 160.2 lbs 2018-07-10 Weight 213.8 lbs 2016-02-09 Weight 252 lbs 2014-07-01 BMI 26.66 kg/m2 2018-07-10 BMI 35.57 kg/m2 2016-02-09 BMI 41.93 kg/m2 2014-07-01 Temperature 99.5 degrees Fahrenheit 2018-07-10 Temperature 98.3 degrees Fahrenheit 2016-02-09 Temperature 98.3 degrees Fahrenheit 2014-07-01 Heart Rate 60 /min 2018-07-10 Heart Rate 66 /min 2016-02-09 Heart Rate 66 /min 2014-07-01 Respiratory Rate 16 /min 2018-07-10 Respiratory Rate 16 /min 2016-02-09 Respiratory Rate 16 /min 2014-07-01 Oximetry 97 % 2018-07-10 Oximetry 98 % 2016-02-09 Oximetry 95 % 2014-07-01 Blood pressure systolic 120 mm Hg 2018-07-10 Blood pressure diastolic 60 mm Hg 2018-07-10 MEDICATIONS Medication Instructions Dosage Frequency Start End Duration Statu s Date Date Levothyroxine orally once a 1 tab(s) 24h Act nancy Sodium 50 mcg day (0.05 mg) Colace sodium 100 orally 2 times 1 cap(s) 12h Active mg a day ProAir HFA CFC inhaled before 2 puff(s) Active free 90 mcg/inh exercise as needed traZODone HCl 100 Orally Once a 2 tablet 24h Active MG day at bedtime COMPRESSION Active STOCKINGS Premarin 0.625 mg orally once a 1 tab(s) 24h Active day Ibuprofen 600 mg orally 3 times 1 tab(s) Active a day PRN Cephalexin 500 mg orally one hour 4 cap(s) Active prior to dental appt Mirapex 0.25 mg orally daily 1 tab(s) 24h Ac tive MiraLax - orally once a Active day as needed Cholecalciferol Orally Once a 1 tablet 24h 30 day(s) Active 29663 UNIT day Tylenol Extra orally every 6 2 tab(s) 6h Ac tive Strength 500 mg hours Flonase 50 MCG/ACT Nasally Once a 2 spray in 24h Active day each nostril PROCEDURES Procedure Date Ordered Result Body Site Depo-medrol 40 Jul 01, 2014 Injection,sm.joint i.e. fingers, toes Jul 01, 2014 [facility](26320) Jul 10, 2018 [facility](05091) Feb 09, 2016 [facility](49304) Jul 01, 2014 RESULTS No Results REASON FOR VISIT foot pain, Referral Done, Has hx of rolling ankles, Pt is looking for another pair of Alimeds., footpain,pt called to rs, update chart , --foot pain referral done, --foot pain patient r/s 07/25, Updating pt chart, Updating Info, ankle pain referral done, pt states that she has bilateral anle pain but not all of the time, pt would like a new pair of Alimed's today, pt states that she sprains her ankles easily, Inputting information, foot pain-referral done ap, pt states that her ankles twist and bother her. , pt states that the soles of her shoes seem to wear on the outside, Information Inputting Insurance Providers [facility] Health Member Patient Patient Patient Patient Patient Subscriber Subscriber Subscriber Group Insurance Plan Plan Plan Plan ID Relationship Address Phone Name Date of ID Name Date of No Type Insurance Insurance Insurance Coverage to Subscriber Address Phone Name Dates SELF PAY ANY STREET SELF PAY self JANICE [id number] [place] [employer] MEDICAID [place] MEDICAID self JANICE [id number] [place] [facility] [id number] MEDICAID EDS MEDICAID self JANICE [id number] [facility] [place] [facility] [id number]
== END 2021-07-21 00:49 ==
PROVIDERS: PCP Physician Assistant Medical; Visit Provider Physician Assistant Medical
DX: R06.00 Dyspnea, unspecified (principal)
CPT/HCPCS: 71046

== ENCOUNTER 2021-11-10 02:08 | Outpatient (CLI) | payer MEDICAID, SELFPAY ==
[2021-11-10 11:26] LABS: Source Nasal/Nares
[2021-11-10 15:54] LABS: COVID-19 PCR Negative (Negative)
== END 2021-11-10 02:09 | disposition home or self-care (01) ==
LOC: LBO 02:08
PROVIDERS: PCP Physician Assistant Medical; Visit Provider Otolaryngology Otolaryngology/Facial Plastic Surgery
DX: Z20.822 Contact with and (suspected) exposure to COVID-19 (principal)
CPT/HCPCS: 87635

== ENCOUNTER → 2022-01-05 02:07 | Outpatient (CLI) | payer MEDICAID, SELFPAY ==
--- NOTE | 2022-01-05 14:06 | DI.US_ITS ---
APPROVED REPORT EXAM: Comprehensive 2D, Doppler, and color-flow Echocardiogram Patient Location: Out-Patient Ground Operations Superintendent: Nydia Potts RDCS (AE) Indications: Non rheumatic mitral valve regurgitation, Aortic valve inusfficiency Other Information Study Quality: Adequate Conclusion Borderline concentric left ventricular hypertrophy. Estimated ejection fraction is 55%. There are n o segmental wall motion abnormalities Normal right ventricular size and systolic function Both atria are normal in size The aortic valve is trileaflet and mildly sclerotic with moderate regurgitation Normal mitral valve with moderate regurgitation Normal tricuspid valve with mild to moderate regurgitation. Estimated right ventricular systolic pre ssure is 30 mmHg Wall motion Left Ventricle The left ventricle is normal size. The left ventricular systolic function is normal. The left ventric ular ejection fraction is within the normal range. Borderline concentric left ventricular hypertrophy . There is normal LV segmental wall motion. There is no ventricular septal defect visualized. LVEF is 55%. Right Ventricle The right ventricle is normal size. The right ventricular systolic function is normal. The RVSP is 30 .3 mmHg. Atria The left atrium size is normal. The right atrium size is normal. The interatrial septum is intact wit h no evidence for an atrial septal defect. Aortic Valve The aortic valve is trileaflet and mildly sclerotic There is no aortic valvular stenosis. Moderate ao rtic regurgitation. Mitral Valve The mitral valve is normal in structure. No evidence of mitral valve stenosis. Moderate mitral regurg itation. Tricuspid Valve The tricuspid valve is normal in structure. There is no tricuspid valve stenosis. Mild to moderate tr icuspid regurgitation. Pulmonic Valve Pulmonic valve is not well visualized. There is no pulmonic valvular stenosis. There is no pulmonic v alvular regurgitation. Great Vessels The aortic root is normal in size. Ascending aorta is not well visualized. Aortic arch is normal in c aliber. IVC is normal in size and collapses >50% with inspiration. Pericardium There is no pericardial effusion. 2D Dimensions IVSD d PLAX 1.05 cm F: 0.6-1.0 LV Vol A2C d MOD 88.8 mL LVPW d PLAX 1.06 cm F: 0.6 - 1.0 LV Vol A4C d MOD 97.3 mL LVID d PLAX 4.53 cm F: 3.8 - 5.2 LA vol/ BSA A2C s A-L 24.8 mL/m2 LVDs 3.35 cm F: 2.2 - 3.5 LA vol/ BSA A4C s A-L 28.9 mL/m2 Ao Root d 3.20 cm F: 2.7 - 3.3 LA Vol/ BSA Biplane s A-L 27.9 mL/m2 RA Area A4C 11.92 cm2 LA Area A4C s MOD 19.68 cm2 RA Vol/ BSA A4C s A-L 14.1 mL/m2 LA Area A2C s MOD 17.47 cm2 LV EF Teichholz 51.3 % LV EF A4C MOD 45.4 % LVEF (Nava's) 48.15 % F: 54 - 74 LV EF A2C MOD 50.7 % LV Volume 69.71 mL F: 46 - 106 LV EF Biplane MOD 48.2 % LV Volume Index 34.33 mL/m2 F: 29 - 61 SV 45.03 mL LV Vol Biplane MOD 93.5 mL SV Index 22.11 mL/m2 FS 26.00 % M-Mode TAPSE 1.92 cm (M/F) >1.7 LV Diastology MV E' medial 0.062 (>0.07 m/s) MV E Vmax 1.30 (0.4-1.3 m/s) LV E/e MED 20.90 (<14) MV E' lateral 0.108 (>0.1 m/s) LV E/e LAT 12.00 (<14) MV E/E' medial 20.92 MV E/E' lateral 12.05 Aortic Valve LVOT Area 2.91 cm2 AoV Area Vmax 2.32 cm2 LVOT Vmax 1.44 m/s AoV Area/ BSA (Vmax) 1.14 cm2/m2 LVOT Mean Cole. 0.97 m/s CARI Mean Cole. 2.22 cm2 LVOT Peak Grad 8.3 mmHg CARI Mean Cole. Index 1.09 cm2/m2 LVOT Mean Grad 4.3 mmHg AR DT 2327 msec LVOT VTI 0.269 m AR PHT 675 msec LVOT Diam s 1.90 cm AoV Vmax 1.81 m/s Velocity Ratio 0.79 AoV Mean Cole. 1.27 m/s AoV Peak Grad 13.1 mmHg LVOT SV 78.19 mL AoV Mean Grad 7.1 mmHg AoV VTI 0.290 m AoV Area VTI 2.69 cm2 AoV Area/ BSA (VTI) 1.32 cm/m2 Mitral Valve MV DT 228 (160-240 msec) MR Vmax 5.90 m/s MV PHT 66 msec MR VTI 1.905 m MV Area PHT 3.33 cm2 MR Peak Grad 139.2 mmHg MV VTI 0.287 m MR Mean Grad 91.7 mmHg MV VTI Annulus 0.274 m MR PISA Radius 0.54 cm MV Area VTI 2.60 (4.0-6.0 cm2) MR EROA 0.11 cm2 MR Aliasing Velocity 0.35 m/s MR PISA 1.86 cm2 Pulmonary Valve PV Vmax 1.27 (0.5-1.5 m/s) RVOT Peak Gr. 1.69 mmHg PV Peak Grad 6.5 mmHg RVOT Mean Gr. 0.95 mmHg PV Mean Grad 3.8 mmHg RVOT VTI 0.125 m PV VTI 0.241 m RVOT Vmax 0.65 m/s Tricuspid Valve TR Peak Grad 27.2 mmHg TR Vmax 2.61 m/s RA Pressure 3.00 mmHg RVSP (TR) 30.3 mmHg
== END ==
PROVIDERS: PCP Physician Assistant Medical; Visit Provider Physician Assistant
DX: I34.0 Nonrheumatic mitral (valve) insufficiency (principal); I35.1 Nonrheumatic aortic (valve) insufficiency
CPT/HCPCS: 93306

== ENCOUNTER 2022-04-15 14:52 | Outpatient (REF) | payer MEDICAID, SELFPAY ==
[2022-04-15 16:28] LABS: Hemoglobin A1C 5.7 % (<5.7)
[2022-04-15 16:39] LABS: ALT 20 U/L (14-59); AST 29 U/L (15-37); Albumin 4.1 g/dL (3.4-5.0); Alkaline Phosphatase 90 U/L (46-116); Anion Gap 7.7 mmol/L (3-11); BUN 21 mg/dL (7-18); Bilirubin, Total 0.5 mg/dL (0.2-1.0); CO2 26.3 mmol/L (21.0-32.0); CREATININE 0.7 mg/dL (0.55-1.02); Calcium 9.5 mg/dL (8.5-10.1); Calculated LDL 165 mg/dL (<100); Chloride 102 mmol/L (98-107); Cholesterol 254 mg/dL (<200); Estimated GFR 98.95 (mL/min/1.73m2); Glucose 100 mg/dL (74-106); HDL Cholesterol 67 mg/dL (40-60); Potassium 4.1 mmol/L (3.5-5.1); Sodium 136 mmol/L (136-145); TSH (W/Ref FT4) 1.67 uIU/mL (0.36-3.74); Total Protein 7.7 g/dL (6.4-8.2); Triglyceride 113 mg/dL (<150)
== END 2022-04-15 14:53 | disposition home or self-care (01) ==
LOC: NCHCN 14:52
PROVIDERS: PCP Physician Assistant Medical; Visit Provider Physician Assistant Medical
DX: R03.0 Elevated blood-pressure reading, without diagnosis of hypertension (principal); R73.03 Prediabetes
CPT/HCPCS: 80053; 80061; 83036; 84443

== ENCOUNTER 2022-09-06 14:15 | Outpatient (REF) | payer MEDICAID, SELFPAY ==
[2022-09-06 16:19] LABS: Hemoglobin A1C 5.8 % (<5.7)
[2022-09-06 16:26] LABS: Anion Gap 6.6 mmol/L (3-11); BUN 14 mg/dL (7-18); CO2 27.4 mmol/L (21.0-32.0); CREATININE 0.9 mg/dL (0.55-1.02); Calcium 9.6 mg/dL (8.5-10.1); Chloride 103 mmol/L (98-107); Estimated GFR 73.19 (mL/min/1.73m2); Glucose 94 mg/dL (74-106); Potassium 4.3 mmol/L (3.5-5.1); Sodium 137 mmol/L (136-145)
== END 2022-09-06 14:16 | disposition home or self-care (01) ==
LOC: NCHCN 14:15
PROVIDERS: PCP Physician Assistant Medical; Visit Provider Physician Assistant Medical
DX: R73.03 Prediabetes (principal); R03.0 Elevated blood-pressure reading, without diagnosis of hypertension
CPT/HCPCS: 80048; 83036

== ENCOUNTER 2022-12-20 02:36 | Outpatient (CLI) | payer MEDICAID, SELFPAY ==
--- NOTE | 2022-12-20 13:00 | DI.MAMMO_ITS ---
Exam(s) MAMMO SCREENING EXAM: MAMMO SCREENING CLINICAL HISTORY: SCREENING, Z12.31. TECHNIQUE: Bilateral full field digital CC and MLO mammographic images were obtained with 3D tomosyn thesis and utilizing computer aided detection (CAD). COMPARISON: Prior mammograms were reviewed. FINDINGS: There are no new findings in the right breast. The left breast there is asymmetric density-probable nodule now evident measuring 9 x 7 mm, located 4 cm in from the nipple on the CC view. Compression view and ultrasound recommended There are no malignant-appearing microcalcification groups is region or elsewhere in either breast There is no significant architectural distortion nor skin thickening-retraction. IMPRESSION: 1. No radiographic evidence of malignancy in the right breast. 2. Breast asymmetric density-possible nodule. Recommend spot compression views and ultrasound. BI-RADS Category 0 - Assessment Incomplete: Need additional imaging evaluation Breast Density - Category B - Scattered areas of fibroglandular density Breast density Category C or D implies that the patient has dense breast tissue. Dense breast tissue can make it harder to find cancer on a mammogram. Dense breast tissue is also associated with an incr eased risk of breast cancer. This information about the result of the mammogram report was provided to the patient to raise their awareness. Use this report when you speak with the patient about their risks for breast cancer, which includes their family history. At that time, you may recommend additional screening tests (Ultrasoun d or MRI) as these tests may add significant information. A negative radiographic report should not delay biopsy if a dominant or clinically suspicious mass is present. Up to ten percent of cancers are not identified on mammography. A negative report may reinforce clinical impression. Adenosis and dense breasts may obscure an underlying neoplasm. False positive reports average 6 to 10%. Patient will receive a letter notifying them of these results.
== END 2022-12-20 02:56 ==
LOC: DI 02:36
PROVIDERS: PCP Physician Assistant Medical; Visit Provider Physician Assistant Medical
DX: Z12.31 Encounter for screening mammogram for malignant neoplasm of breast (principal)
CPT/HCPCS: 77063; 77067

== ENCOUNTER 2022-12-27 01:26 | Outpatient (CLI) | payer MEDICAID, SELFPAY ==
--- NOTE | 2022-12-27 | DI.US_ITS ---
Exam(s) MG MAMMO SCREEN CALL BACK UNI US BREAST LT COMPLETE EXAM: MG MAMMO SCREEN CALL BACK UNI CLINICAL HISTORY: F/U MAMMO, BREAST ASYMMETRIC DENSITY POSSIBLE NODULE LT. TECHNIQUE: Craniocaudal and mediolateral oblique spot compression digital Mammography views of the l eftbreast with Tomosynthesis and left breast ultrasound. COMPARISON: Mammograms from 2015 through recent exam of 20 December 2022. FINDINGS: Mammography/Tomosynthesis: Masses/Architectural Distortion: None seen. The area of nodularity in question disperses on spot comp ression images. Microcalcifictions: No suspicious pleomorphic-type are seen. Skin Thickening/Nipple Retraction: None. Left breast US: Echotexture: Normal appearance of the glandular tissue. Shadowing: No suspicious foci. Cyst: None. Solid lesions: None seen. Ductal dilation: None. IMPRESSION: 1. No evidence of malignancy is noted. 2. Unless there is more urgent need, follow-up screening mammography is recommended, as per [place] [employer] guidelines. 3. The findings were discussed with the patient on the date of the examination. BI-RADS Category 1 - Negative Breast Density - Category B - Scattered areas of fibroglandular density A negative radiographic report should not delay biopsy if a dominant or clinically suspicious mass is present. Up to ten percent of cancers are not identified on mammography. A negative report may reinforce clinical impression. Adenosis and dense breasts may obscure an underlying neoplasm. False positive reports average 6 to 10%. Patient will receive a letter notifying them of these results.
--- OUTSIDE RECORDS SUMMARY | 2022-12-27 01:30 | XMS_ITS | Patient Health Record ---
Author Name Unknown [facility] Address [address] [place] [address] Care Team Providers Care Shovel Operator Name Role Phone MANDY GUTIERREZ Primary Care Provider Joseph Rios [phone] ALLERGIES Allergen (clinical drug ingredient) Drug/Non Drug Allergy documented on EMR Reaction Allergy Type Onset Date Status oxycodone OxyCODONE HCl Itchy Drug Allergy Act nancy diazepam Valium interacts with other meds Drug Allergy Active REASON FOR REFERRAL No Information MEDICATIONS Medication SIG (Take, Route, Frequency, Duration) Notes Start Date End Date Status traZODone HCl 100 MG 2 tablet at bedtime Orally Once a day Active Flonase 50 MCG/ACT 2 spray in each nost ril Nasally Once a day Active Levothyroxine Sodium 50 mcg (0.05 mg) 1 tab(s) orally once a day Active Colace sodium 100 mg 1 cap(s) orally 2 t imes a day Active Ibuprofen 600 mg 1 tab(s) orally 3 ti mes a day PRN Active COMPRESSION STOCKINGS as directed Active Tylenol Extra Strength 500 mg 2 tab(s) o rally every 6 hours Active Cholecalciferol 15077 UNIT 1 tablet Oral ly Once a day for 30 day(s) Active Mirapex 0.25 mg 1 tab(s) orally daily Active Premarin 0.625 mg 1 tab(s) orally once a day Active MiraLax - orally once a day as needed Active ProAir HFA CFC free 90 mcg/inh 2 puff(s) inhaled before exercise as needed Active Cephalexin 500 mg 4 cap(s) orally one hour prior to dental appt Active SOCIAL HISTORY Tobacco Use: Social History Observation Description Date Smoking Status WARNING: Information temporarily unavailable Sex Assigned At : Social History Observation Description Sex Assigned At Unknown SMOKING Question Answer Notes Are you a: nonsmoker Tobacco use other than smoking: Question Answer Notes Additional Findings: Tobacco User No PROBLEMS Problem Type ICD Code Onset Dates Problem Status W/U Status Risk SNOMED Code Notes Problem Foot pain, bilateral (729.5) Active confirmed 02374283 Problem Arthralgia of foot, right (M25.571) Active confirmed 558903255 Problem Arthralgia of foot, left (M25.572) Active confirmed 109964147 Problem Acquired pes planovalgus of left foot (M21.6X2) Active confirmed 30973539 Problem Pes planus of both feet (734) Active confirmed 93616719 Problem Acquired pes planovalgus of right foot (M21.41) Active confirmed 77021637 Problem Hammertoe of left foot (M20.42) Active confirmed Acquired hammer toe of left foot ([id number] 9103) Problem Hammertoe of right foot (M20.41) Active confirmed Acquired hammer toe of right foot ([id number] 9105) PLAN OF TREATMENT No Information Insurance Providers Payer Name Payer Address Payer Phone Subscriber Number Group Number Insured Name Patient Relationship to Insured Coverage Start Date Coverage End Date [place] [employer] [place], [place] [id number] JANICE DÍAZ Self - patient is the insured SELF [place] [address] JANICE DÍAZ Self - patient is the insured MEDICAL (GENERAL) HISTORY Medical History History ICD Code Hyperlipidemia Gerd, Dysphagia Snoring Neck pain Low back pain Constipation Edema Dyspnea Postmenopausal status Anemia, iron deficiency Illiterate Bipolar affective disorder Urinary incontinence Abuse, alcohol, in remission Obesity Arthralgia Mild to moderate hearing loss ADHD Hypothyroidism Bipolar affective disorder Urinary incontinence Surgical History Surgery Date(Month/Year) knee implants bladder sling hyterectomy Hospitalization History Reason Date(Month/Year) see above
== END 2022-12-27 01:46 ==
LOC: DI 01:27
PROVIDERS: PCP Physician Assistant Medical; Visit Provider Physician Assistant Medical
DX: Z12.31 Encounter for screening mammogram for malignant neoplasm of breast (principal); R92.8 Other abnormal and inconclusive findings on diagnostic imaging of breast
CPT/HCPCS: 76642; 77063; 77067

== ENCOUNTER 2023-03-10 13:27 | Outpatient (REF) | payer MEDICAID, SELFPAY ==
--- OUTSIDE RECORDS SUMMARY | 2023-03-10 13:30 | XMS_ITS | Patient Health Record ---
Author Name Unknown [facility] Address [address] [place] [address] Care Team Providers Care Surgical Dental Assistant Name Role Phone MANDY GUTIERREZ Primary Care Provider Joseph Rios [phone] ALLERGIES Allergen (clinical drug ingredient) Drug/Non Drug [...] o rally every 6 hours Active Cholecalciferol 55568 UNIT 1 tablet Oral ly Once a [...] Problem Foot pain, bilateral (729.5) Active confirmed 25547510 Problem Arthralgia of foot, right (M25.571) Active confirmed 003169649 Problem Arthralgia of foot, left (M25.572) Active confirmed 575157689 Problem Acquired pes planovalgus of left foot (M21.6X2) Active confirmed 78591684 Problem Pes planus of both feet (734) Active confirmed 23748466 Problem Acquired pes planovalgus of right foot (M21.41) Active confirmed 69077646 Problem Hammertoe of left foot (M20.42) Active confirmed Acquired hammer toe of left foot ([id number] 9103) Problem Hammertoe of right foot (M20.41) Active confirmed Acquired hammer toe of right foot ([id number] 9105) PLAN OF TREATMENT No Information Insurance Providers Payer Name Payer Address Payer Phone Subscriber Number Group Number Insured Name Patient Relationship to Insured Coverage Start Date Coverage End Date [place] [employer] [place], [place] [id number] JANICE DÍAZ Self - patient is the insured [place]ELF [place] [address] JANICE DÍAZ Self - patient is the [...]
[2023-03-10 15:16] LABS: HGB 13.1 g/dL (11.2-15.7); MCH 28.7 pg (27.0-33.0); MCHC 33.6 % (32.0-36.0); MCV 85 fL (80-95); MPV 9.8 fL (8.0-11.0); Platelet Count 253 10^3/uL (130-400); RBC 4.57 10^6/uL (3.93-5.22); RDW 12.7 % (11.7-14.6); RDW-SD 39.5 fL; WBC 5.51 10^3/uL (4.4-10.8)
[2023-03-10 15:36] LABS: Hemoglobin A1C 5.7 % (<5.7)
[2023-03-10 16:06] LABS: ALT 35 U/L (14-59); AST 29 U/L (15-37); Albumin 3.8 g/dL (3.4-5.0); Alkaline Phosphatase 93 U/L (46-116); BUN 16 mg/dL (7-18); Bilirubin, Total 0.4 mg/dL (0.2-1.0); CREATININE 0.5 mg/dL (0.55-1.02); Calcium 9.5 mg/dL (8.5-10.1); Calculated LDL 143 mg/dL (<100); Chloride 102 mmol/L (98-107); Cholesterol 232 mg/dL (<200); Estimated GFR 106.64 (mL/min/1.73m2); Glucose 109 mg/dL (74-106); HDL Cholesterol 76 mg/dL (40-60); Potassium 4.1 mmol/L (3.5-5.1); Sodium 136 mmol/L (136-145); Total Protein 7.4 g/dL (6.4-8.2); Triglyceride 65 mg/dL (<150)
== END 2023-03-10 13:28 | disposition home or self-care (01) ==
LOC: NCHCN 13:27
PROVIDERS: PCP Physician Assistant Medical; Visit Provider Physician Assistant Medical
DX: Z13.0 Encounter for screening for diseases of the blood and blood-forming organs and certain disorders involving the immune mechanism (principal); Z13.1 Encounter for screening for diabetes mellitus; Z13.220 Encounter for screening for lipoid disorders; Z13.228 Encounter for screening for other metabolic disorders; Z00.00 Encounter for general adult medical examination without abnormal findings
CPT/HCPCS: 80053; 80061; 85027; 83036

== ENCOUNTER 2023-08-08 09:03 | Outpatient (REF) | payer MEDICAID, SELFPAY ==
[2023-08-08 16:11] LABS: Anion Gap 10.8 mmol/L (3-11); BUN 12 mg/dL (7-18); CO2 24.2 mmol/L (21.0-32.0); CREATININE 0.6 mg/dL (0.55-1.02); Calcium 9.4 mg/dL (8.5-10.1); Chloride 101 mmol/L (98-107); Estimated GFR 102.06 (mL/min/1.73m2); FREE T4 0.86 ng/dL (0.76-1.46); Glucose 102 mg/dL (74-106); Potassium 4.3 mmol/L (3.5-5.1); Sodium 136 mmol/L (136-145); TSH 2.64 uIU/Ml (0.36-3.74)
[2023-08-08 16:33] LABS: Hemoglobin A1C 5.7 % (<5.7)
== END 2023-08-08 09:04 | disposition home or self-care (01) ==
LOC: NCHCN 09:03
PROVIDERS: PCP Physician Assistant Medical; Referring Provider Physician Assistant Medical; Visit Provider Physician Assistant Medical
DX: I10 Essential (primary) hypertension (principal); R73.03 Prediabetes
CPT/HCPCS: 80048; 83036; 84439; 84443

== ENCOUNTER 2024-01-10 01:46 | Outpatient (CLI) | payer MEDICAID, SELFPAY ==
--- NOTE | 2024-01-10 | DI.RAD_ITS ---
Exam(s) XR LUMBAR SPINE COMPLETE EXAM: XR LUMBAR SPINE COMPLETE CLINICAL HISTORY: M54.50 Low back pain, unspecified. TECHNIQUE: 2D digital imaging was performed of the lumbar spine. Five images were obtained. AP, la teral, right oblique, left oblique and L5-S1 spot views were obtained. COMPARISON: CR XR lumbar spine complete from 10/29/2018 FINDINGS: BONES: No fracture or destructive lesion. Endplate osteophytes are seen throughout the lumbar spine, most marked at L2-3, L3-4 and L4-L5. Degenerative changes of the facets are seen in the lower lumbar spine. DISKS: There is disc space narrowing and vacuum discs at L2-3, L3-4 and L4-L5. ALIGNMENT: There is a very mild left convex curvature of the lumbar spine. No spondylolysis or spond ylolisthesis. SOFT TISSUE: Vascular calcifications are present. IMPRESSION: Moderately severe degenerative changes in the lumbar spine. DATA REPOSITORY: RADIATION DOSE DELIVERED:
--- OUTSIDE RECORDS SUMMARY | 2024-01-10 02:02 | XMS_ITS | Encounter Summary ---
Author Organization [facility] Address [address] [place] [address] Care Team Providers Care Last Puller Name Role Phone Gina Morales MD Primary Care Provider [phone] Encounter Details Date Type Department Care Team (Late st Contact Info) Description 05/15/2019 Lab Requisition [facility] Pathology & Laboratory Medicine - [address] [address] Unknown, Provider, Social History Tobacco Use Types Packs/Day Years Used Date Smoking Tobacco: Never Assessed Sex and Gender Information Value Date Recorded Sex Assigned at Not on file Gender Identity Not on file Sexual Orientation Not on file documented as of this encounter Plan of Treatment Not on file documented as of this encounter Procedures Procedure Name Priority Date/Time Associated Diagnosis Comments CHLAMYDIA/N. GONORRHOEAE AMPLIFIED NUCLEIC ACID Routine 05/14/2019 12:10 EST documented in this encounter Results * CHLAMYDIA/N. GONORRHOEAE AMPLIFIED RNA (05/14/2019 12:10 EST) Neisseria gonorrhoeae Result Negative Negative 05/16/2019 13:32 EST [facility] Chlamydia trachomatis Result Negative Negative 05/16/2019 13:32 EST [facility] Urine URINE / Unknown 05/14/2019 1 2:10 EST 05/15/2019 16:53 EST Narrative [facility] - 05/16/2019 13:32 EST A first catch urine specimen is acceptable for detection of Gonorrhea and Chlamydia, but might detect up to 10% fewer infections when compared with vaginal and endocervical swab samples. Provider Unknown MICROBIOLOGY - ESTRELLA BUSTAMANTE ORDERABLES [facility] [address] [place] [address] documented in this encounter Visit Diagnoses Not on filedocumented in this encounter Care Teams Last Puller Relationship Specialty Start Date End Date Gina Morales MD [address] [place] [address] [phone] PCP - General 04/24/13 documented as of this encounter
--- OUTSIDE RECORDS SUMMARY | 2024-01-10 02:02 | XMS_ITS | Encounter Summary ---
Author Organization [facility] Address [address] [place] [address] Care Team Providers Care Engineering And Scientific Programmer Name Role Phone Derek Rodgers MD Primary Care Provider [phone] Encounter Details Date Type Department Care Team (Late st Contact Info) Description 04/22/2013 Results Only [facility] Laboratory Services - [facility] ([facility] [address] [place] [address] [id number] Fernando Peace MD [address] [place] [address] Social History Tobacco Use Types Packs/Day Years Used Date Smoking Tobacco: Never Assessed Sex and Gender Information Value Date Recorded Sex Assigned at Not on file Gender Identity Not on file Sexual Orientation Not on file documented as of this encounter Plan of Treatment Not on file documented as of this encounter Procedures Procedure Name Priority Date/Time Associated Diagnosis Comments SURGICAL PATHOLOGY Routine 04/22/2013 15 :31 EST documented in this encounter Results * SURGICAL PATHOLOGY (04/22/2013 15:31 EST) Pathology Report: SURGICAL PATHOLOGY REPORT Reports generated via electronic interface contain original data; however they are lacking the format of the original report. Caution should be taken when reading/interpreti ng unformatted reports. Name: ? JANICE DÍAZ ? Accession #: ? [id number] ? : ? 1960 (Age: 53) ??F ? Collect Date: ? 04/22/2013 ? Location: ? [facility] ? Receive Date: ? 04/22/2013 ? Provider: FERNANDO PEACE MD Copy to: DEREK RODGERS MD ? Final Pathologic Diagnosis: ESOPHAGUS, 34 CM, BIOPSY: - ??Squamocolumnar mucosa with basal reactive changes. - ??Negative for intestinal metaplasia. Document reviewed and electronically signed by: FREDIS MCCOY MD Report ??Date: 04/24/2013 15:08 By the signature above, the attending physician certifies that he/she has personally conducted a gross and/or microscopic examination of the described specimens and rendered or confirmed the above diagnosis. Specimen(s) Received: 34 cm bxs esophagus Clinical History: GERD Gross Description: ? Received in formalin labelled with proper patient identification (initials P, C) and 34 cm bx esophagus are five pink-briones tissues (0.2 x 0.2 x 0.2 cm to 0.7 x 0.3 x 0.2 cm). Entirely submitted in 1 and 2. Pao Vidal 04/22/2013 04:35 PM End of Report ANNABEL MCDANIELS 04/22/2013 15:3 1 EST 04/22/2013 15:31 EST Fernando Peace MD PATHOLOGY ORDERABLE S ANNABEL MCDANIELS [address] [place] [address] documented in this encounter Visit Diagnoses Not on filedocumented in this encounter Care Teams Engineering And Scientific Programmer Relationship Specialty Start Date End Date Derek Rodgers MD [facility] [address] [place], [place] [address] PCP - General 12/27/10 04/23/13 documented as of this encounter
--- OUTSIDE RECORDS SUMMARY | 2024-01-10 02:02 | XMS_ITS | Encounter Summary ---
Author Organization [facility] Address [address] [place] [address] Care Team Providers Care Automatic Chief Name Role Phone Gina Morales MD Primary Care Provider [phone] Encounter Details Date Type Department Care Team (Late st Contact Info) Description 07/14/2021 Lab Requisition [facility] Pathology & Laboratory Medicine - [address] [address] Outr Resulting Lab, Provider Social History Tobacco Use Types Packs/Day Years Used Date Smoking Tobacco: Never Assessed Interpersonal Safety Answer Date Record ed Physically Hurt Never 12/29/2019 Verbally Threaten Not on file 12/29/2019 Sex and Gender Information Value Date Recorded Sex Assigned at Not on file Gender Identity Not on file Sexual Orientation Not on file documented as of this encounter Plan of Treatment Not on file documented as of this encounter Procedures Procedure Name Priority Date/Time Associated Diagnosis Comments T3 FREE Routine 07/13/2021 11:05 EST FERRITIN Routine 07/13/2021 11:05 EST documented in this encounter Results * T3 FREE (07/13/2021 11:05 EST) T3, Free 4.0 2.8 - 5.3 pg/mL 07/14/2021 17:54 EST [facility] Blood VENOUS BLOOD / Unknown 07/13/2021 11:05 EST 07/14/2021 17:12 EST Provider Outr Resulting Lab CHEMISTRY & BLOOD GAS ORDERABLES Performing Organization Address City/[facility]/ZIP Co de Phone Number [facility] [address] [place] [address] * FERRITIN (07/13/2021 11:05 EST) Ferritin 53 10 - 291 ng/mL 07/14/2021 19:42 EST [facility] Blood VENOUS BLOOD / Unknown 07/13/2021 11:05 EST 07/14/2021 17:12 EST Provider Outr Resulting Lab CHEMISTRY & BLOOD GAS ORDERABLES Performing Organization Address [facility] Co de Phone Number [facility] [address] [place] [address] documented in this encounter Visit Diagnoses Not on filedocumented in this encounter Care Teams Automatic Chief Relationship Specialty Start Date End Date Gina Morales MD [address] [place] [id number] PCP - General 04/24/13 documented as of this encounter
--- OUTSIDE RECORDS SUMMARY | 2024-01-10 02:02 | XMS_ITS | Encounter Summary ---
Author Organization [facility] [place] [address] Care Team Providers Care Middle [employer] Pe Teacher Name Role Phone Shashi Verma Primary Care Provider [phone] Reason for Referral * Diagnostic Test (Routine) - Closed Specialty Diagnoses / Procedures Referred By Contac t Referred To Contact Radiology Diagnoses Pelvic floor dysfunction Procedures MRI Pelvis Soft Tissue (Gi Gu Pocket Creaser)WO Contrast MRI Pelvis Soft Tissue (GI FILM INSPECTOR)W Contrast Yossi Morales APRN [facility] [place] [address] [place] [address] Referral ID Status Reason Start Date Expiration Date V isits Requested Visits Authorized [id number] Closed Specialty Service Requested 03/28/2018 06/26/2018 2 2 Reason for Visit * Diagnostic Test (Routine) - Closed Specialty Diagnoses / Procedures Referred By Contac t Referred To Contact Radiology Diagnoses Pelvic floor dysfunction Procedures MRI Pelvis Soft Tissue (Gi Gu Pocket Creaser)WO Contrast MRI Pelvis Soft Tissue (GI FILM INSPECTOR)W Contrast Yossi Morales APRN [facility] [place] [address] [place] [address] Referral ID Status Reason Start Date Expiration Date V isits Requested Visits Authorized [id number] Closed Specialty Service Requested 03/28/2018 06/26/2018 2 2 Encounter Details Date Type Department Care Team (Latest Contact Info) Description 04/09/2018 10:08 AM EST - 04/09/2018 10:09 AM [facility] Encounter MRI at [facility] [address] Yossi Morales APRN [facility] [address] [place] [address] Pelvic floor dysfunction Discharge Disposition: Home Social History Tobacco Use Types Packs/Day Years Used Date Smoking Tobacco: Never Smokeless Tobacco: Never Alcohol Use Standard Drinks/Week Comments No 0 (1 standard drink = 0.6 oz pur e alcohol) Quit, 2000 Sex and Gender Information Value Date Recorded Sex Assigned at Not on file Gender Identity Not on file Sexual Orientation Not on file documented as of this encounter Medications at Time of Discharge Medication Sig Dispensed Refills Start Date End Date lisdexamfetamine (VYVANSE) 30 mg Capsule Take 70 mg by mouth every morning. PROAIR HFA 90 mcg/actuation HFA Aerosol Inhaler Inhale 2 puffs into the lungs. 0 03/10/2015 traZODone (DESYREL) 100 mg tabletIndications:Vagin al bleeding,Pelvic pain in female,Dyspareunia,Urin zabrina incontinence, mixed Take 150 mg by mouth nightly. polyethylene glycol (MIRALAX) 17 gram/dose Powder Take 17 g by mouth daily. 595 g 5 01/08/2018 08/01/2019 docusate sodium (COLACE) 100 mg Capsule Take 1 capsule by mouth 2 times daily. 60 capsule 5 01/08/2018 05/14/2019 pantoprazole (PROTONIX) 40 mg Tablet, Delayed Release (E.C.) Take 1 tablet by mouth daily. 90 tablet 3 01/02/2018 01/03/2019 senna-docusate (PERICOLACE) 8.6-50 mg Tablet Take 2-4 tablets by mouth nightly. 100 tablet 11 11/01/2017 08/01/2019 PARoxetine (PAXIL) 30 mg Tablet Take 30 mg by mouth every morning. 08/01/2019 hyoscyamine (LEVSIN/SL) 0.125 mg Tablet, Sublingual Take 1 tablet by mouth every 6 hours as needed for Cramping. 120 tablet 2 11/01/2017 08/01/2019 metroNIDAZOLE (FLAGYL) 500 mg Tablet Take 1 tablet by mouth 2 times daily. 28 tablet 11/01/2017 08/01/2019 pramipexole (MIRAPEX) 0.25 mg Tablet 0 04/16/2017 08/01/2019 estrogens, conjugated, (PREMARIN) 0.625 mg TabletIndications:Menop ause Take 1 tablet by mouth daily. 90 tablet 4 09/01/2015 08/01/2019 documented as of this encounter Progress Notes * Cindy Arteaga - 04/04/2018 2:50 PM EST MRI PRE-SEDATION ASSESSMENT NOTE NAME: Shobha Ramírez AGE: 58 y.o. : 1960 [address] [facility] [address] Female [phone] (home) No relevant phone numbers on file. TOIR Mendoza No primary care provider on file. Allergies Allergen Reactions ??? Oxycontin [Oxycodone] Itching ??? Valium [Diazepam] Other (See Comments) makes me depressed Date/Time of call: April 04, 2018/2:50 PM/ PREVIOUS MRI SCAN? Yes, OSH HEIGHT: 5'5 WEIGHT: 155 SCHEDULED SCAN: MRI PELVIS WO CONTRAST [[id number]]; 60 mins, Supine Order Questions Answers Where will study be performed? [facility] [120] Reason for exam and clinical history: with defecography, pelvic floor dysfunction; hx of bladder sling; ?nicolas ?prolapse Is the patient ? No SUBJECTIVE: claustrophobic CAN YOU LAY FLAT? yes AIRWAY ISSUES? no DO YOU HAVE ANY INVOLUNTARY MOVEMENTS? no DO YOU HAVE ANY PAIN? Yes back and legs DO YOU TAKE PAIN MED ON A DAILY BASIS? Iboprofen ASSESSMENT: Appropriate for PO sedation PLAN: Ativan 1-2 mg PO per protocol ( JN ) You must have a crew car driver present when you check in. This patient has been informed that they require a crew car driver to drive them home after this procedure. In the absence of a crew car driver, IR will not be able to sedate for your scan. Pt verbalized understanding of these instructions during the pre-procedure education via phone. Yes [place] of crew car driver: Human service Rep Phone number: PRIOR SCAN DATE/S: SEDATION TYPE: SUCCESSFUL: 04/09/18 MRI Pelvis Ativan 1mg PO yes Revised 10/24/17 documented in this encounter Plan of Treatment Not on file documented as of this encounter Procedures Procedure Name Priority Date/Time Associated Diagnosis Comments MRI PELVIS SOFT TISSUE (GI FILM INSPECTOR) WO CONTRAST Routine 04/09/2018 12:49 PM EST Pelvic floor dysfunction documented in this encounter Results * MRI Pelvis Soft Tissue (Gi Gu Pocket Creaser)WO Contrast (04/09/2018 12:49 PM EST) Anatomical Region Laterality Modality Pelvis Magnetic Resonan ce Impressions 04/09/2018 1:50 PM EST 1. ?? Grade 2 rectocele. 2. ?? Grade 1 cystocele. 3. ??Vaginal apex descends 5 cm, to the level of the pubococcygeal line, at defecation. Elongated urogenital hiatus stable from rest to defecation. Low lying levator hiatus descends to 9.5 cm below the pubococcygeal line with defecation. Persistent right pelvic floor fascial disruption characterized by thinning and avulsion of the right side puborectalis muscle. Definitions: Anorectal Descent Grade I 3-5 cm below PCL Grade II >5 cm below PCL Rectocele (ant bulge to line drawn through anal canal) Grade I 0-2 cm (may be normal in women, always abnl in men) Grade II 2-4 cm Grade III 4-6 cm Cystocele ??(bulge of bladder base below PCL) Grade I 1-3 cm (may be normal in women) Grade II 3-6 cm Grade III > 6 cm Uterine prolapse ??(descent of cvx below PCL) Grade I 1-3 cm (may be normal in women) Grade II 3-6 cm Grade III > 6 cm Narrative 04/09/2018 1:50 PM EST EXAMINATION: MRI PELVIS SOFT TISSUE (GI FILM INSPECTOR) WO CONTRAST CLINICAL HISTORY: with defecography, pelvic floor dysfunction; hx of bladder sling; ?nicolas ?prolapse TECHNIQUE: Ultrasound gel was instilled into the rectum. Multiplanar MRI of the pelvis was performed utilizing defecography protocol. All images were obtained with patient in supine position. COMPARISON: April 18, 2016 FINDINGS: Anatomic Evaluation: Status post hysterectomy. No ascites. No pathologically enlarged lymph nodes. Stable asymmetric thinning of the inferior puborectalis muscle with stable avulsion of superior fibers of the puborectalis muscle, series 3 images 35 and 36. Posterior Compartment Anorectal angle: Rest: 132 degrees Kegel: 126 degrees Strain: 116 degrees Defecation: 136 degrees Findings consistent with widened resting angle without expected narrowing during Kegel and without change during defecation. Anorectal junction location relative to Pubococcygeal line (PCL) Rest: 3.7 cm below (normal <2 cm below) Kegal: 1.7 cm below Strain: 1.7 cm below (normal <3 cm below) Defecation: 6 cm below Findings are consistent with low lying anorectal junction at rest with grade2 descent during defecation. Rectocele: 3.4 cm Rectal Intussusception: Indeterminate on this study Anterior Compartment Bladder base location relative to the PCL: Rest: 1.3 cm above Defecation: 2.6 cm below Urethral hypermobility: present Trace fat anterior to the bladder herniates below the pubococcygeal line at defecation. Middle Compartment Vaginal apex/cervix location relative to PCL: Rest: 5 cm above Defecation: At the pubococcygeal line. Peritoneocele/Enterocele/Sigmoidocele: None Other: At rest and with defecation, length of the urogenital hiatus (H line) is 7 cm. At rest, length vertical descent of the levator hiatus is 2.6 cm and increases to 9.5 cm with defecation. Procedure Note Gi Hurtado MD - 04/09/2018 EXAMINATION: MRI PELVIS SOFT TISSUE (GI FILM INSPECTOR) WO CONTRAST CLINICAL HISTORY: with defecography, pelvic floor dysfunction; hx ofbladder sling; ?nicolas ?prolapse TECHNIQUE: Ultrasound gel was instilled into the rectum. Multiplanar MRIof the pelvis was performed utilizing defecography protocol. All images wereobtained with patient in supine position. COMPARISON: April 18, 2016 FINDINGS: Anatomic Evaluation: Status post hysterectomy. No ascites. Nopathologically enlarged lymph nodes. Stable asymmetric thinning of the inferiorpuborectalis muscle with stable avulsion of superior fibers of the puborectalismuscle, series 3 images 35 and 36. Posterior Compartment Anorectal angle: Rest: 132 degrees Kegel: 126 degrees Strain: 116 degrees Defecation: 136 degrees Findings consistent with widened resting angle without expected narrowingduring Kegel and without change during defecation. Anorectal junction location relative to Pubococcygeal line (PCL) Rest: 3.7 cm below (normal <2 cm below) Kegal: 1.7 cm below Strain: 1.7 cm below (normal <3 cm below) Defecation: 6 cm below Findings are consistent with low lying anorectal junction at rest withgrade2 descent during defecation. Rectocele: 3.4 cm Rectal Intussusception: Indeterminate on this study Anterior Compartment Bladder base location relative to the PCL: Rest: 1.3 cm above Defecation: 2.6 cm below Urethral hypermobility: present Trace fat anterior to the bladder herniates below the pubococcygeal lineat defecation. Middle Compartment Vaginal apex/cervix location relative to PCL: Rest: 5 cm above Defecation: At the pubococcygeal line. Peritoneocele/Enterocele/Sigmoidocele: None Other: At rest and with defecation, length of the urogenital hiatus (H line) is 7cm. At rest, length vertical descent of the levator hiatus is 2.6 cm andincreases to 9.5 cm with defecation. IMPRESSION 1. Grade 2 rectocele. 2. Grade 1 cystocele. 3. Vaginal apex descends 5 cm, to the level of the pubococcygeal line,at defecation. Elongated urogenital hiatus stable from rest to defecation. Low lying levator hiatus descends to 9.5 cm below the pubococcygeal linewith defecation. Persistent right pelvic floor fascial disruption characterized by thinningand avulsion of the right side puborectalis muscle. Definitions: Anorectal Descent Grade I 3-5 cm below PCL Grade II >5 cm below PCL Rectocele (ant bulge to line drawn through anal canal) Grade I 0-2 cm (may be normal in women, always abnl in men) Grade II 2-4 cm Grade III 4-6 cm Cystocele (bulge of bladder base below PCL) Grade I 1-3 cm (may be normal in women) Grade II 3-6 cm Grade III > 6 cm Uterine prolapse (descent of cvx below PCL) Grade I 1-3 cm (may be normal in women) Grade II 3-6 cm Grade III > 6 cm Yossi Morales APRN IM[facility] MRI ORDERABLES documented in this encounter Visit Diagnoses Diagnosis Pelvic floor dysfunction Pelvic muscle wasting documented in this encounter Administered Medications Inactive Administered Medications - up to 3 most recent administrations Medication Order MAR Action Action Date Dose Rate Site LORazepam (ATIVAN) tablet 1 mg 1 mg, Oral, EVERY 30 MIN PRN, 2 doses, Starting on Mon04/09/18 at 0828, Until Mon04/10/18 at 0436, Anxiety, Angio/IR (Day of Procedure), Routine Given 04/09/2018 10:39 AM EST 1 mg documented in this encounter Care Teams [employer] Teacher Relationship Specialty Start Date End Date Shashi Verma PA [address] [place] [address] PCP - General Family Medicine 04/06/16 01/14/20 documented as of this encounter
--- OUTSIDE RECORDS SUMMARY | 2024-01-10 02:02 | XMS_ITS | Encounter Summary ---
Author Organization [facility] Address [address] [place] [address] Care Team Providers Care Stable Hand Name Role Phone Unavailable Primary Care Provider Unavailabl e Encounter Details Date Type Department Care Team (Late st Contact Info) Description 12/17/2007 Before PRISM Converted Visit (Maple) [facility] - Maple conversion [address] [place] [address] Torri Castro MD [address] [place] [address] [place] [address] Social History Tobacco Use Types Packs/Day Years Used Date Smoking Tobacco: Never Assessed Sex and Gender Information Value Date Recorded Sex Assigned at Not on file Gender Identity Not on file Sexual Orientation Not on file documented as of this encounter Plan of Treatment Not on file documented as of this encounter Procedures Procedure Name Priority Date/Time Associated Diagnosis Comments HPV DETECTION, HIGH RISK TYPES Routine 12/17/2007 9:40 EDT CYTOPATHOLOGY Routine 12/17/2007 0:00 EDT documented in this encounter Results * HUMAN PAPILLOMA VIRUS DNA TEST (12/17/2007 9:40 EDT) Specimen Description Cervix, ThinPrep vial [facility] Result Negative for HPV types 16, 18, 31, 33, 35, 39, 45, 51, 52, 56, 58, 59, and 68. [facility] Report Status Final [id number] [facility] 12/17/2007 9:40 EDT 12/24/2007 11:52 EDT Torri Castro MD MICROBIOLOGY - GENER AL ORDERABLES [facility] [address] [address] * CYTOPATHOLOGY (12/17/2007 0:00 EDT) Pathology Report: CYTOPATHOLOGY REPORT ? Reports generated via electronic interface contain original data; ? however they are lacking the format of the original report. ? Caution should be taken when reading/interpreti ng unformatted reports. ? Name: ? JANICE DÍAZ ? Accession #: ? [id number] ? : ? 1960 (Age: 47) ??F ?Collect Date: ? 12/17/2007 ? Location: ? [facility] ? Receive Date: ? 12/17/2007 ? Provider: ?TORRI STANTON MD ? Copy to: ? Specimen/Source: ?ThinPrep Pap Test, Cervix/Endocervix, processed on [employer]star ThinPrep Imaging System, with manual evaluation ? Last Menstrual Period: ? 06/21/08 ? Hormonal/Contracep tive Status: ? Control Pills ? Other: ? HPVDX - HPV testing requested regardless of diagnosis on current ThinPrep Pap ?? test. ? SPECIMEN ADEQUACY ? Satisfactory for Evaluation ? - transformation zone component present ? GENERAL CATEGORIZATION ? Negative for Intraepithelial Lesion or Malignancy ? Document reviewed and electronically signed by: ? Eris Stone, CT(ASCP) ? Report Date: ??12/21/2007 15:53 ? End of Report ? [facility] 12/17/2007 12/17/2007 Torri Castro MD PATHOLOGY ORDERABLES [facility] [address] [place] [address] documented in this encounter Visit Diagnoses Not on filedocumented in this encounter
--- OUTSIDE RECORDS SUMMARY | 2024-01-10 02:02 | XMS_ITS | Encounter Summary ---
Author Organization [facility] Address [address] [place] [address] Care Team Providers Care Forestry Engineer Name Role Phone Gina Morales MD Primary Care Provider [phone] Encounter Details Date Type Department Care Team (Latest Contact Info) Description 04/22/2013 11:00 EST - 04/22/2013 23:59 EST Hospital Encounter [address] [address] Unknown, Provider, Discharge Disposition: Home or Self Care Social History Tobacco Use Types Packs/Day Years Used Date Smoking Tobacco: Never Assessed Sex and Gender Information Value Date Recorded Sex Assigned at Not on file Gender Identity Not on file Sexual Orientation Not on file documented as of this encounter Discharge Disposition Disposition Code Departure Means Destination Home or Self Senior Living documented in this encounter Plan of Treatment Not on file documented as of this encounter Visit Diagnoses Not on filedocumented in this encounter Care Teams Forestry Engineer Relationship Specialty Start Date End Date Gina Morales MD [facility] [address] [place] [address] PCP - General 12/27/10 04/23/13 documented as of this encounter
--- OUTSIDE RECORDS SUMMARY | 2024-01-10 02:02 | XMS_ITS | Encounter Summary ---
Author Organization [facility] Address [facility] [place] [address] Care Team Providers Care Patient Services Representative Name Role Phone Shashi Verma Primary Care Provider [phone] Encounter Details Date Type Department Care Team (Latest Contact Info) Description 05/14/2019 1:30 PM EST Office [place] [phone] Yossi Morales APRN [facility] [place] [address] Gastroesophageal reflux disease without esophagitis Social History Tobacco Use Types Packs/Day Years Used Date Smoking Tobacco: Never Smokeless Tobacco: Never Alcohol Use Standard Drinks/Week Comments No 0 (1 standard drink = 0.6 oz pur e alcohol) Quit, 2000 Sex and Gender Information Value Date Recorded Sex Assigned at Not on file Gender Identity Not on file Sexual Orientation Not on file documented as of this encounter Last Filed Vital Signs Vital Sign Reading Time Taken Comments Blood Pressure 147/71 05/14/2019 1:15 PM EST Pulse 65 05/14/2019 1:15 PM EST Temperature - - Respiratory Rate - - Oxygen Saturation - - Inhaled Oxygen Concentration - - Weight 81.6 kg (180 lb) 05/14/2019 1:15 PM EST Height 166.4 cm (5' 5.5) 05/14/2019 1:15 PM EST Body Mass Index 29.5 05/14/2019 1:15 PM EST documented in this encounter Progress Notes * Yossi Morales RN - 05/14/2019 1:30 PM EST _25___minutes of this_30___-minute visit were spent in face to face discussion and/or counseling the patient, regarding symptoms and treatment options as detailed below. The patient is here for follow up regarding progress with medical regimen. amitiza caused severe cramping. Right now she is taking daily stool softeners 100mg qhs. miralax 1/2 capful prn. Has a stool every other day, every two days. No blood in stool. No abdominal pain. Pt is taking protonix 40mg; frequency can vary; qd; qod to every q few days. She has found avoidingfood triggers has been helpful. Overall her reflux is controlled. No dysphagia, n/v. Tolerating diet. Weight gain. Seeing obgyn in May 2019. Plan: 1. Gerd: protonix 40mg qd to qod. gerd diet and lifestyle modifications. 2. Constipation: colace 2-4 capsules qd. 3. Gif in 6 months documented in this encounter Plan of Treatment Not on file documented as of this encounter Visit Diagnoses Diagnosis Gastroesophageal reflux disease without esophagitis Esophageal reflux documented in this encounter Care Teams Patient Services Representative Relationship Specialty Start Date End Date Shashi Verma PA [address] [place] [address] PCP - General Family Medicine 04/06/16 01/14/20 documented as of this encounter
--- OUTSIDE RECORDS SUMMARY | 2024-01-10 02:02 | XMS_ITS | Encounter Summary ---
Author Organization [facility] Address [address] [place] [address] Care Team Providers Care Lang Path Therapist Name Role Phone Unknown, Provider Primary Care Provider [phone] Encounter Details Date Type Department Care Team (Late st Contact Info) Description 07/21/2005 Results Only [facility] - Maple conversion [address] [place] [address] Nallely Ferreira MD [address] [place] [phone] Social History Tobacco Use Types Packs/Day Years Used Date Smoking Tobacco: Never Assessed Sex and Gender Information Value Date Recorded Sex Assigned at Not on file Gender Identity Not on file Sexual Orientation Not on file documented as of this encounter Plan of Treatment Not on file documented as of this encounter Procedures Procedure Name Priority Date/Time Associated Diagnosis Comments SURGICAL PATHOLOGY Routine 07/21/2005 0:00 EST documented in this encounter Results * SURGICAL PATHOLOGY (07/21/2005 0:00 EST) Pathology Report: SURGICAL PATHOLOGY REPORT Reports generated via electronic interface contain original data; however they are lacking the format of the original report. Caution should be taken when reading/interpretin g unformatted reports. Name: ? JANICE DÍAZ ? Accession #: ? [id number] ? : ? 1960 (Age: 45) ??F ? Collect Date: ? 07/21/2005 ? Location: ? [facility] ? Receive Date: ? 07/21/2005 ? Provider: NELIDA FERREIRA MD Copy to: NALLELY PEREYRA MD ? Final Pathologic Diagnosis: ? Gastroesophageal junction, biopsy: - Benign reactive squamocolumnar mucosa with acute inflammation. ??See comment. Comment: ? PAS stain is negative for fungal organisms. ??(Patricia Nunez)/[facility] Document reviewed and electronically signed by: FREDIS MCCOY MD Report ??Date: 07/25/2005 16:52 By the signature above, the attending physician certifies that he/she has personally conducted a gross and/or microscopic examination of the described specimens and rendered or confirmed the above diagnosis. Specimen(s) Received: ? Bx GE junction Clinical History: ? Acid reflux, small HH Gross Description: ? Received in Hollande's fixative labelled Darrell and bx GE junction is a 0.4 x 0.2 x 0.1 cm piece of tissue. ??The specimen is submitted intact in one cassette. (Anjelica Taylor)/mpl End of Report [facility] 07/21/2005 07/21/2005 15: 17 EST Nallely Ferreira MD PATHOLOGY ORDERABLES [facility] [address] [place] [address] documented in this encounter Visit Diagnoses Not on filedocumented in this encounter Care Teams Lang Path Therapist Relationship Specialty Start Date End Date Unknown, Provider, PCP - General 01/21/09 12/26/10 documented as of this encounter
--- OUTSIDE RECORDS SUMMARY | 2024-01-10 02:02 | XMS_ITS | Clinical Summary ---
Author Organization [facility] Address [facility] [place] [address] Care Team Providers Care Machine Maintenance Technician Name Role Phone Unknown Primary Care Provider Unavailabl e Allergies Active Allergy Reactions Criticality Noted Date Comments Oxycodone Itching 03/22/2011 Diazepam Other (See Comments) 02/12/2015 makes me depressed Medications Medication Sig Dispensed Refills Start Date End Date Status traZODone (DESYREL) 100 mg tabletIndications:V aginal bleeding,Pelvic pain in female,Dyspareunia, Urinary incontinence, mixed Take 150 mg by mouth nightly. Active PROAIR HFA 90 mcg/actuation HFA Aerosol Inhaler Inhale 2 puffs into the lungs. 0 03/10/2015 Active lisdexamfetamine (VYVANSE) 30 mg Capsule Take 70 mg by mouth every morning. Active acetylcyst/methylB1 2/levomefol (CEREFOLIN NAC ORAL) Take 2 capsules by mouth daily. Active levomefolate calcium (L-METHYLFOLATE ORAL) Take by mouth. Active ibuprofen (ADVIL;MOTRIN) 600 mg Tablet Take 600 mg by mouth every 6 hours as needed for Pain. Active cholecalciferol, Vitamin D3, 1,000 unit Tablet Take 1,000 Units by mouth daily. Active fluticasone propionate (FLONASE) 50 mcg/actuation [place], Suspension 1 spray daily. Act nancy docusate sodium (COLACE) 100 mg Capsule Take 2-4 capsules by mouth daily. 120 capsule 5 05/14/2019 Active pantoprazole EC (PROTONIX) 40 mg Tablet, Delayed Release (E.C.) Take 1 tablet by mouth daily. 90 tablet 3 05/14/2019 Active multivitamin (THERAGRAN) Tablet Take 1 tablet by mouth daily. Active Active Problems Problem Noted Date Diagnosed Date Gastroesophageal reflux 08/05/2015 IBS (irritable bowel syndrome) 08/05/2015 Fecal incontinence 02/12/2015 Urinary retention with incomplete bladder emptyi ng 02/12/2015 Dyspareunia, female 10/25/2011 Muscle weakness 09/07/2011 Urinary incontinence, mixed 03/28/2011 Preventative health care 01/18/2011 History of uterine prolapse Overview (03/28/2011): vaginal hysterectomy, uterosacral ligament suspension, posterior colporrhaphy, midurethral sling, 03/28/2011 Immunizations Name Administration Dates Next Due Influenza Vaccine, Whole 03/13/2006,03/22/2005 Pneumococcal Polysaccharide (Pneumovax 23) 03/29,02/07/2005 TD Adult 08/24/2000 Family History Medical History Relation Comments Hypertension Father Diabetes Maternal Grandmother Heart Failure Mother Asthma Sister Breast Cancer Neg Hx Colorectal Cancer Neg Hx Ovarian Cancer Neg Hx Pancreatic Cancer Neg Hx Uterine Cancer Neg Hx Relation Status Comments Father Alive Maternal Grandmother Mother (Age 70) CAD, HTN, chol esterol, DVT Sister Social History Tobacco Use Types Packs/Day Years Used Date Smoking Tobacco: Never Smokeless Tobacco: Never Alcohol Use Standard Drinks/Week Comments No 0 (1 standard drink = 0.6 oz pur e alcohol) , 2000 Sex and Gender Information Value Date Recorded Sex Assigned at Not on file Gender Identity Not on file Sexual Orientation Not on file Last Filed Vital Signs Vital Sign Reading Time Taken Comments Blood Pressure 117/71 08/01/2019 9:37 AM EST Pulse 69 08/01/2019 9:37 AM EST Temperature 36.5 ??C (97.7 ??F) 08/01/2019 9:37 AM ES T Respiratory Rate 18 09/03/2015 12:29 PM EDT Oxygen Saturation 100% 08/01/2019 9:37 AM EST Inhaled Oxygen Concentration - - Weight 82.6 kg (182 lb) 08/01/2019 9:37 AM EST Height 165.1 cm (5' 5) 08/01/2019 9:37 AM EST Body Mass Index 30.29 08/01/2019 9:37 AM EST Plan of Treatment Health Maintenance Due Date Last Done Comments CT Colonography 1960 Colonoscopy 1960 Colorectal Cancer Screening 1960 FIT DNA 1960 FIT 1960 Sigmoidoscopy (10 year) with FIT yearly 1960 Sigmoidoscopy 1960 HIV screen 02/02/1980 Hepatitis C Screening 02/02/1980 Tdap adult 1981 HPV test 02/02/1992 PAP Smear 02/02/1992 Breast Cancer Share Decision Needed 2002 Breast Cancer screening 2002 Tetanus vaccine 08/24/2010 08/24/2000 Zoster vaccine (1 of 2) 02/02/2012 Advance Directive 2017 Covid-19 Vaccine ( - season) 2023 Influenza (Flu) vaccine (1 o f 1 - Influenza standard series) 01/28/2024 03/13/2006, 03/22/2005 Diabetes Screening (HgbA1C or Glucose) Discontinued Medical Devices Implanted Type Area Senior Php Developer Device Identifier Shelf Expiration Date Model / Serial / Lot Davie,Chanelle, Janeth,Em Claros ([id number]) - [id number] Implanted:Qty : 1 on 03/28/2011 at [facility] IMPLANTS N/A: V[employer] - [id number] 02/25/2014 [id number] / / [id number] Procedures Procedure Name Priority Date/Time Associated Diagnosis Comments COMPREHENSIVE METABOLIC PANEL Routine 08/05/2015 10:29 AM EST RUQ pain from Last 3 Months or Most Recently Relevant to Health Maintenance Results * Comprehensive metabolic panel (non-fasting) (08/05/2015 10:29 AM EST) Glucose 90 65 - 199 mg/dL [facility] Comment:Diabetes: >=200 mg/d L plus symptoms Blood Urea Nitrogen 13 8 - 18 mg/dL [facility] Creatinine 0.74 0.70 - 1.20 mg/dL [facility] Comment: Please note that the pediatric reference intervals supplied above were not validated at [facility]. Results from pediatric patients should be interpreted in conjunction to the patient's age, height and muscle mass. Sodium 140 135 - 145 mmol/L [facility] Potassium 4.4 3.5 - 5.0 mmol/L [facility] Comment: Please note: ??Patients with WBC >100,000 may have falsely elevated Potassium levels. ??For accurate Potassium quantification in these patients send serum separator tube (gold top) for subsequent determinations. ??Contact the Clinical Chemistry Laboratory if there are any questions. Chloride 103 98 - 107 mmol/L [facility] Carbon Dioxide 26 22 - 31 mmol/L [facility] Anion Gap 11 5 - 15 mmol/L [facility] Calcium 9.4 8.5 - 10.5 mg/dL [facility] Protein, Total 7.2 6.1 - 8.0 gm/dL [facility] Albumin 4.5 3.2 - 5.2 gm/dL [facility] Aspartate Aminotransferase 20 0 - 30 unit/L [facility] Alanine Aminotransferase 12 0 - 30 unit/L [facility] Alkaline Phosphatase 72 40 - 104 unit/L [facility] Bilirubin, Total 0.4 0.2 - 1.3 mg/dL [facility] Bilirubin, Direct 0.1 0.0 - 0.3 mg/dL [facility] Est Glomerular Filtration Rate >60 >=60 [facility] Comment: This estimated GFR (eGFR) value was calculated using the MDRD equation which has been validated on patients between the ages of 18 and 70. The MDRD should not be used to assess kidney function in patients < 18 years of age or in patients with extremes of body mass, or in patients with acute kidney failure. This value should be multiplied by 1.2 for patients. For further information please copy and paste the following links into your internet browser. http://[employer]/DHnkdep http://[employer]/DHMCnkf Blood specimen (specimen) 08/05/2015 10:29 AM EST 08/05/2015 10:42 AM EST Narrative Resulting Agency Comment Spec In Lab Erik Phillips MD CHEMISTRY ORDERABLES [facility] [place] [address] from Last 3 Months or Most Recently Relevant to Health Maintenance Advance Directives * Full Code (Latest Code Status on File) Date Activated Date Inactivated Comments 03/28/2011 4:17 PM 03/30/2011 1:22 PM Question Answer Comments Order Status: Initial Order Does patient have decision m aking capacity? Yes, Order is based on Patients wishes. * Full Code Date Activated Date Inactivated Comments 03/28/2011 11:01 AM 03/28/2011 4:17 PM Question Answer Comments Order Status: Initial Order Does patient have decision m aking capacity? Yes, Order is based on Patients wishes. Care Teams Machine Maintenance Technician Relationship Specialty Start Date End Date Unknown None PCP - General 01/15/20
--- OUTSIDE RECORDS SUMMARY | 2024-01-10 02:02 | XMS_ITS | Encounter Summary ---
Author Organization [facility] Address [address] [place] [address] Care Team Providers Care Mathematical Technician Name Role Phone Unknown, Provider Primary Care Provider [phone] Encounter Details Date Type Department Care Team (Late st Contact Info) Description 10/01/2004 Results Only [facility] - Maple conversion [address] [place] [address] Torri Castro MD [address] [place] [address] [place] [address] Social History Tobacco Use Types Packs/Day Years Used Date Smoking Tobacco: Never Assessed Sex and Gender Information Value Date Recorded Sex Assigned at Not on file Gender Identity Not on file Sexual Orientation Not on file documented as of this encounter Plan of Treatment Not on file documented as of this encounter Procedures Procedure Name Priority Date/Time Associated Diagnosis Comments CYTOPATHOLOGY Routine 10/01/2004 0:00 EDT documented in this encounter Results * CYTOPATHOLOGY (10/01/2004 0:00 EDT) Pathology Report: CYTOPATHOLOGY REPORT Reports generated via electronic interface contain original data; however they are lacking the format of the original report. Caution should be taken when reading/interpreti ng unformatted reports. Name: ? JANICE DÍAZ ? Accession #: ? [id number] : ? 1960 (Age: 44) ??F ?Collect Date: ? 10/01/2004 Location: ? [facility] ? Receive Date: ? 10/04/2004 Provider: ?TORRI CASTRO MD Copy to: ? Specimen/Source: ?ThinPrep Pap Test, Cervix/Endocervix Last Menstrual Period: ? SPECIMEN ADEQUACY ? Satisfactory for Evaluation - transformation zone component present GENERAL CATEGORIZATION ? Negative for Intraepithelial Lesion or Malignancy ? Document reviewed and electronically signed by: ? TAY Jacobo(ASCP) ? Report Date: ??10/11/2004 10:04 End of Report [facility] 10/01/2004 10/04/2004 Torri Castro MD PATHOLOGY ORDERABLES [facility] [address] [place] [address] documented in this encounter Visit Diagnoses Not on filedocumented in this encounter Care Teams Mathematical Technician Relationship Specialty Start Date End Date Unknown, Provider, PCP - General 01/21/09 12/26/10 documented as of this encounter
--- OUTSIDE RECORDS SUMMARY | 2024-01-10 02:02 | XMS_ITS | Encounter Summary ---
Author Organization [facility] Address [address] [place] [address] Care Team Providers Care It Auditor Name Role Phone Unavailable Primary Care Provider Unavailabl e Encounter Details Date Type Department Care Team (Late st Contact Info) Description 01/16/2009 Orders Only [facility] ([facility] [address] [place], [place] [address] Derek Morales MD [facility] [address] [place], [place] [id number] Social History Tobacco Use Types Packs/Day Years Used Date Smoking Tobacco: Never Assessed Sex and Gender Information Value Date Recorded Sex Assigned at Not on file Gender Identity Not on file Sexual Orientation Not on file documented as of this encounter Plan of Treatment Not on file documented as of this encounter Procedures Procedure Name Priority Date/Time Associated Diagnosis Comments SURGICAL PATHOLOGY Routine 01/16/2009 0:00 EDT documented in this encounter Results * SURGICAL PATHOLOGY (01/16/2009 0:00 EDT) Pathology Report: SURGICAL PATHOLOGY REPORT ? Reports generated via electronic interface contain original data; ? however they are lacking the format of the original report. ? Caution should be taken when reading/interpreti ng unformatted reports. ? Name: ? ARJUN, JANICE M ? Accession #: ? [id number] ? : ? 1960 (Age: 48) ??F ? Collect Date: ? 01/16/2009 ? Location: ? [facility] ? Receive Date: ? 01/19/2009 ? Provider: DEREK READY MD ? Copy to: ? Final Pathologic Diagnosis: ? Skin of forearm, right, punch biopsy: ? 1. ?Melanocytic nevus, compound congenital type. ? - Nevus extends to peripheral edge of punch biopsy specimen. ? Microscopic Description: ? Sections consist of a circumscribed, symmetric proliferation of melanocytes with both epidermal and dermal components. ??The junctional melanocytes are ? arranged mainly in nests that are relatively large and variable in shape. ??The ?? dermal melanocytes form nests and cords that diminish in size with descent into the dermis. ??The melanocytes preferentially extend around follicles, eccrine ? units, and the neurovascular plexus. ??Individual melanocytes splay dermal ? collagen bundles and infiltrate stef arrector muscle. ??The melanocytes are ? slightly enlarged but have round-oval nuclei and a moderate amount of cytoplasm. The dermal melanocytes show utility supervisor boat and plant maturation. ??(Dr. Fishman)/mpl ? Document reviewed and electronically signed by: ? Isatu Fishman MD ? Report ??Date: 01/21/2009 16:51 ? By the signature above, the attending physician certifies that he/she has ? personally conducted a gross and/or microscopic examination of the described ? specimens and rendered or confirmed the above diagnosis. ? Specimen(s) Received: ? R forearm 5.0 mm punch biopsy ? Clinical History: ? 1.2 mm atypical nevus, fast growing asymmetrical multicolored 1.2 mm nevus with irregular borders. No FH BCC/SCC or melanoma ? Gross Description: ? Received in formalin labelled Arjun, Janice and right forearm nevus is a 0.5 cm in diameter by 0.3 cm in length punch biopsy of briones skin. ??There is an eccentric 0.4 x 0.4 cm smith-brown macule with ill-defined borders. ??The specimen is bisected and entirely submitted in a single cassette. /alvaro ? End of Report ? [facility] 01/16/2009 01/19/2009 18: 18 EDT Derek Ready MD PATHOLOGY ORDERABLES [facility] [address] [place] [address] documented in this encounter Visit Diagnoses Not on filedocumented in this encounter
--- OUTSIDE RECORDS SUMMARY | 2024-01-10 02:02 | XMS_ITS | Encounter Summary ---
Author Organization [facility] Address [facility] [place] [address] Care Team Providers Care Branch Service Representative Name Role Phone Shashi Verma Primary Care Provider [phone]- [phone] Reason for Visit * Reason Comments Medication Refill Encounter Details Date Type Department Care Team (Late st Contact Info) Description 04/22/2019 [place] [address] Yossi Morales APRN [facility] [place] [address] Irritable bowel syndrome with constipation Social History Tobacco Use Types Packs/Day Years [...] as of this encounter Visit Diagnoses Diagnosis Irritable bowel syndrome with constipation Irritable bowel syndrome documented in this encounter Care Teams Branch Service Representative Relationship Specialty Start Date End Date Shashi Verma PA [address] [place] [address] PCP - General Family Medicine 04/06/16 01/14/20 documented as of this encounter
--- OUTSIDE RECORDS SUMMARY | 2024-01-10 02:02 | XMS_ITS | Encounter Summary ---
Author Organization [facility] [place] [address] Care Team Providers Care Homicide Squad Sergeant Name Role Phone Shashi Verma Primary Care Provider +1- [phone] Encounter Details Date Type Department Care Team (Late st Contact Info) Description 12/16/2019 Telephone [place] [id number] Pauly Lopez RN Social History Tobacco Use Types Packs/Day Years Used Date Smoking Tobacco: Never Smokeless Tobacco: Never Alcohol Use Standard Drinks/Week Comments No 0 (1 standard drink = 0.6 oz pur e alcohol) Quit, 2000 Sex and Gender Information Value Date Recorded Sex Assigned at Not on file Gender Identity Not on file Sexual Orientation Not on file documented as of this encounter Miscellaneous Notes * Telephone Encounter - Pauly Lopez RN - 12/16/2019 1:11 PM EDT Call placed to patient to discuss. Shobha will follow-up with her PCP for refills. She will also discuss with PCP if new referral to GI is indicated or if PCP can manage her care going forward. * Telephone Encounter - Pauly Lopez RN - 12/16/2019 1:11 PM EDT ----- Message from Cici Tanner CMA sent at 12/16/2019 12:30 PM EDT ----- Regarding: telephone call The patient called stating that she needed a refill of her pantoprazole 40 mg and her stool softener. Furthermore, she was wondering what was going to happen with her care. Sincerely Cici documented in this encounter Plan of Treatment Not on file documented as of this encounter Visit Diagnoses Not on filedocumented in this encounter Care Teams Homicide Squad Sergeant Relationship Specialty Start Date End Date Shashi Verma PA [address] [place] [address] PCP - General Family Medicine 04/06/16 01/14/20 documented as of this encounter
--- OUTSIDE RECORDS SUMMARY | 2024-01-10 02:02 | XMS_ITS | Encounter Summary ---
Author Organization Health system Address [address] [place] [address] Care Team Providers Care Horticultural Therapist Name Role Phone Unavailable Primary Care Provider Unavailabl e Encounter Details Date Type Department Care Team (Late st Contact Info) Description 01/14/2009 Orders Only [facility] ([facility] [address] [place] [address] Torri Castro MD [address] [place] [address] [place] [address] Social History Tobacco Use Types Packs/Day Years Used Date Smoking Tobacco: Never Assessed Sex and Gender Information Value Date Recorded Sex Assigned at Not on file Gender Identity Not on file Sexual Orientation Not on file documented as of this encounter Plan of Treatment Not on file documented as of this encounter Procedures Procedure Name Priority Date/Time Associated Diagnosis Comments CYTOPATHOLOGY Routine 01/14/2009 0:00 EDT documented in this encounter Results * CYTOPATHOLOGY (01/14/2009 0:00 EDT) Pathology Report: CYTOPATHOLOGY REPORT ? Reports generated via electronic interface contain original data; ? however they are lacking the format of the original report. ? Caution should be taken when reading/interpreti ng unformatted reports. ? Name: ? JANICE DÍAZ ? Accession #: ? [id number] ? : ? 1960 (Age: 48) ??F ?Collect Date: ? 01/14/2009 ? Location: ? [facility] ? Receive Date: ? 01/15/2009 ? Provider: ?TORRI CASTRO MD ? Copy to: ? Specimen/Source: ?Pap Test, Cervix/Endocervix, ThinPrep Imaging System ? with manual evaluation ? Last Menstrual Period: ? 7/21/09 ? Other: ? HPVA - HPV testing requested if ASC-US on the current ThinPrep Pap test. ? SPECIMEN ADEQUACY ? Satisfactory for Evaluation ? - transformation zone component present ? GENERAL CATEGORIZATION ? Negative for Intraepithelial Lesion or Malignancy ? INTERPRETATION ? Reactive cellular changes associated with inflammation present (includes ?? repair). ? Shift in yue present suggestive of bacterial vaginosis. ? Document reviewed and electronically signed by: ? Andrea Eris Nate, MD ? Report Date: ??01/22/2009 12:16 ? End of Report ? [facility] 01/14/2009 01/15/2009 Torri Castro MD PATHOLOGY ORDERABLES [facility] [address] [place] [address] documented in this encounter Visit Diagnoses Not on filedocumented in this encounter
--- OUTSIDE RECORDS SUMMARY | 2024-01-10 02:02 | XMS_ITS | Encounter Summary ---
Author Organization [facility] Address [facility] [address] [place] [id number] Care Team Providers Care Wig Dresser Name Role Phone Shashi Verma Primary Care Provider +1- [phone] Reason for Referral * Consultation (Routine) - Closed Specialty Diagnoses / Procedures Referred By Contac t Referred To Contact Obstetrics and Gynecology Diagnoses Rectocele, female Yossi Morales APRN [facility] [place] [address] Delmer Velasco MD [facility] DR OBSTETRICS [place] [address] Referral ID Status Reason Start Date Expiration Date V isits Requested Visits Authorized [id number] Closed Consult, Test & Treat 01/03/2019 01/03/2020 1 1 Encounter Details Date Type Department Care Team (Late st Contact Info) Description 01/03/2019 11:30 AM EDT Office [place] [address] Yossi Morales APRN [facility] [place] [address] Female urethrocele; Rectocele, female Social History Tobacco Use Types Packs/Day Years [...] Sign Reading Time Taken Comments Blood Pressure 127/72 01/03/2019 11:37 AM EDT Pulse 56 01/03/2019 11:37 AM EDT Temperature - - Respiratory Rate - - Oxygen Saturation - - Inhaled Oxygen Concentration - - Weight 79.1 kg (174 lb 4.8 oz) 01/03/2019 11:37 AM EDT Height 165.1 cm (5' 5) 01/03/2019 11:37 AM EDT Body Mass Index 29.01 01/03/2019 11:37 AM EDT documented in this encounter Patient Instructions * Patient Instructions* Yossi Morales RN - 01/03/2019 11:30 AM EDT Refer to gabby; Krista gif documented in this encounter Progress Notes * Yossi Morales RN - 01/03/2019 11:30 AM EDT __26__minutes of this__34__-minute visit were spent in face to face discussion and/or counseling the patient, regarding symptoms and treatment options as detailed below. Patient is here for follow up regarding progress with medical regimen. Pt has a hx of marked rectocele and a cystocele. Hx of bladder suspension. She engages in splinting. She is taking senna 3 tables qhs; miralax and colace daily. Has run out of senna. Continues to havehard stools at times. Has to self disimpact. Linzess caused cramping. No blood in stool. Weight gain. no appetite. Pt is taking protonix 40mg qd. This is controlling reflux. No dysphagia, n/v. Only has breakthroughif she eats an aggravating food. Exam: soft, non-tender, no mass or organomegaly Plan: 1. Gerd: protonix 40mg qd 2. Pelvic floor dysfunction/rectocele/cystocele: refer to urogyn to consider surgical intervention;suppository prn 3. Constipation: amitiza 8mcg bid; stop all other laxatives. 4. Gif in 6-8 weeks documented in this encounter Plan of Treatment Scheduled Referrals Name Type Priority Associated Diagnoses Order Schedule Referral to Urogynecology Outpatient Referral Routine Rectocele, female Ordered: 01/03/2019 documented as of this encounter Visit Diagnoses Diagnosis Female urethrocele Urethrocele Rectocele, female Rectocele documented in this encounter Care Teams Wig Dresser Relationship Specialty Start Date End Date Shashi Verma PA [address] [place] [address] PCP - General Family Medicine 04/06/16 01/14/20 documented as of this encounter
--- OUTSIDE RECORDS SUMMARY | 2024-01-10 02:02 | XMS_ITS | Encounter Summary ---
Author Organization Formerly [facility], [facility] Address [facility] [place] [address] Care Team Providers Care Chief Electrician Name Role Phone Shashi Verma Primary Care Provider [phone] Reason for Referral * Physical Therapy (Routine) - Closed Specialty Diagnoses / Procedures Referred By Contac t Referred To Contact Physical Therapy Diagnoses Dyssynergic defecation Florida Carbajal MD [facility] [place] [address] [facility] [place] [address] Referral ID Status Reason Start Date Expiration Date V isits Requested Visits Authorized [id number] Closed Evaluate and Treat 08/01/2019 07/31/2020 12 12 Reason for Visit * Reason Comments Vaginal Prolapse * Consultation (Routine) - Closed Specialty Diagnoses / Procedures Referred By Contac t Referred To Contact Obstetrics and Gynecology Diagnoses Rectocele, female O'Yossi Newell APRN [facility] [place] [address] Casey Velasco MD [facility] [address] Referral ID Status Reason Start Date Expiration Date V isits Requested Visits Authorized [id number] Closed Consult, Test & Treat 01/03/2019 01/03/2020 1 1 Encounter Details Date Type Department Care Team (Late st Contact Info) Description 08/01/2019 9:30 AM EST Office Visit Obstetrics and Gynecology at [facility] [place] [address] Casey Velasco MD [facility] OBSTETRICS [place] [address] Dyssynergic defecation; Urge urinary incontinence; Prolapse of vaginal wall; Vaginal atrophy; Dyspareunia, female Social History Tobacco Use Types Packs/Day [...] 08/01/2019 9:37 AM ES T Respiratory Rate - - Oxygen Saturation 100% 08/01/2019 9:37 AM EST Inhaled Oxygen Concentration - - Weight 82.6 kg (182 lb) 08/01/2019 9:37 AM EST Height 165.1 cm (5' 5) 08/01/2019 9:37 AM EST Body Mass Index 30.29 08/01/2019 9:37 AM EST documented in this encounter Progress Notes * Casey Velasco MD - 08/01/2019 9:30 AM EST Female Pelvic Medicine and Reconstructive Surgery @ [facility] Patient Name: Shobha Ramírez Patient Primary Care Provider: TORI Mendoza Patient Active Problem List Diagnosis Code ??? Preventative health care Z00.00 ??? History of uterine prolapse Z87.42 ??? Urinary incontinence, mixed N39.46 ??? Muscle weakness M62.81 ??? Dyspareunia, female N94.10 ??? Fecal incontinence R15.9 ??? Urinary retention with incomplete bladder emptying R33.9 ??? Gastroesophageal reflux K21.9 ??? IBS (irritable bowel syndrome) K58.9 Chief Complaint: rectocele History of Present Illness: Ms. Ramírez is a 59 y.o. old para 5 woman, seen at the kind request of TORI Mendoza. She presents for evaluation and assessment of a symptomatic rectocele. She is known to me for priorhistory of uterovaginal prolapse, s/p vaginal hysterectomy, uterosacral ligament suspension, posterior colporrhaphy, midurethral sling, 03/28/2011. I last saw her in August 2015. Today, she comes to check on her prolapse because she feels pressure and discomfort with intercourse. She also strains chronically with bowel movements. She wonders if her sling is impacting this. Ms. Ramírez feels like she has vaginal dryness and has some discomfort with intercourse. She does use lubricant. She does not do kegels and she has gone to physical therapy in the past. Ms. Ramírez believes that ithad helped some. She has used vaginal estrogen in the past and didn't like it when it came back out. Ms. Ramírez inquired about estrogen ring or pills, but doesn't have very good insurance coverage so cost might be an issue. Goals for this visit 1. Talk about vaginal estrogen 2. Check in on the prolapse Urinary tract history Patient no history of recurrent urinary tract infection. Patient no history of pyelonephritis. Patient no history of urinary tract abnormality. Patient no history of nephrolithiasis. Patient no history of hematuria. Bladder irritants: Fluid intake:32 fluid oz x2 lemon/[place] vit C and richa Caffeine intake: 1-2 cups of coffee Cigarette smoking (packs, time, if quit when): no Alcohol: no Bladder Function Urinary incontinence: yes ICIQ-UI Short Form How often do you leak urine? Never 0 About once a week or less often 1 x 2-3 times a week 2 About once a day 3 Several times a day 4 All the time 5 How much urine do you usually leak? None 0 x A small amount 1 A moderate amount 2 A large amount 3 Overall, how much does leaking interfere with your everyday life? 6 (0 not at all, 10 a great deal) ICIQ Sum the scores: 9 When does urine leak? (Check all that apply) Never - Urine does not leak x Leaks before you can get to the toilet Very little Leaks when you cough or sneeze ? Underwear might be a little wet Leaks when you are asleep Leaks when you are physically active/exercising She will stay longer on the toilet Leaks when you have finished urinating or are dressed Leaks for no obvious reason Leaks all the time Pad use (per day): no Pad type: n/a Daytime voids: Every 30min to 1 hour Nocturia: twice Previous urinary incontinence treatment (Medical/Behavioral/Surgical): sling Storage symptoms x Urinary frequency x Nocturia x Stress urinary incontinence - leakage with exertion, cough/sneeze xx Urge urinary incontinence - leakage preceded immediately by urge to void Noctural enuresis - NOT IN ASSOCIATION WITH URGE Continuous urinary leakage Other: (e,g. giggle, intercourse-related) Bladder sensation x Normal - aware of filling and increased sensation up to desire to void Increased - feels an early and persistent need to void Reduced - aware of filling but NOT definite desire to void Absent - NO sensation of filling or need to void Non-specific - No specific bladder symptoms during filling or void Voiding symptoms None Slow stream Spraying Intermittent stream - stop/start on > 1 occasion during void Straining - muscular effort to initiate, maintain OR improve stream Terminal dribble - prolonged final part of void x Feeling of incomplete emptying Pelvic Organ Prolapse (POP) Any personally see or feel a vaginal bulge? no What precipitates prolapse or symptoms of prolapse? none Previous treatment for POP (physical therapy, pessary, surgery)?: TVH, USLS Bowel Function Fecal incontinence (yes/no): No, not lately Number of fecal incontinent episodes (day/week): n/a Number of bowel movements (day/week): Twice a week Defecatory Dysfunction: Symptom Presence Symptom Presence NONE Incomplete Emptying x Straining x Infrequent stools (<3 week) x Splinting Abdominal discomfort Loose stools Defecatory urgency Hard stools x Other Has to manually evacuate stool sometimes Sexual Function Active?: yes Pain with intercourse?: yes If yes, insertional/Deep? Deep, pain in pelvis Desire to retain sexual function? yes Past Medical History: Diagnosis Date ??? ALCOHOL ABUSE, IN REMISSION sober since 2000 ??? Bipolar disorder ADHD ??? Hyperlipemia ??? Learning disability ??? Obesity ??? Urinary, incontinence, stress female 03/28/2011 ??? Uterovaginal prolapse, incomplete vaginal hysterectomy, uterosacral ligament suspension, posterior colporrhaphy, midurethral sling, 03/28/2011 Past Surgical History: Procedure Laterality Date ??? CARPAL TUNNEL RELEASE bilateral ??? KNEE ARTHROSCOPY bilateral ??? PRO POST COLPORRHAPHY, RECTUM/VAGINA 03/28/2011 COLPORRHAPHY, POST RECTOCELE WITH OR W\O PERINEORRHAPHY performed by CASEY VELASCO at [facility] MAIN OR ??? PRO REVAGINAL PROLAPSE, UTEROSACRAL 03/28/2011 COLPOPEXY, VAGINAL, INTRAPERITONEAL APPROACH performed by CASEY VELASCO at [facility] MAIN OR ??? PRO SLING OPER STRES INCONTINENCE 03/28/2011 URETHRAL SUSPENSION, SLING\FASCIA OR SYNTHETIC performed by CASEY VELASCO at [facility] MAIN OR ??? PRO UPPER GI ENDOSCOPY, BIOPSY N/A 09/03/2015 EGD WITH BIOPSY performed by Kain Kimball MD at [facility] ENDOSCOPY ? ? PRO VAGINAL HYSTERECTOMY, UTERUS 250 GMS/< 03/28/2011 HYSTERECTOMY, VAGINAL, <250 GRAMS performed by CASEY VELASCO at [facility] MAIN OR ??? TONSILLECTOMY ??? TUBAL LIGATION OB History Para Term AB Living 5 5 0 0 0 0 SAB TAB Ectopic Multiple Live Births 0 0 0 0 0 # Outcome Date GA Lbr Saad/2nd Weight Sex Delivery Anes PTL Lv 5 Para 4 Para 3 Para Vag-Forceps 2 Para 1 Para Vag-Forceps No outpatient medications have been marked as taking for the 08/01/19 encounter (Appointment) with Casey Velasco MD. Allergies Allergen Reactions ??? Oxycontin [Oxycodone] Itching ??? Valium [Diazepam] Other (See Comments) makes me depressed Social History Socioeconomic History ??? Marital status: Spouse name: Not on file ??? Number of children: Not on file ??? Years of education: Not on file ??? Highest education level: Not on file Occupational History ??? Not on file Social Needs ??? Financial resource strain: Not on file ??? Food insecurity Worry: Not on file Inability: Not on file ??? Transportation needs Medical: Not on file Non-medical: Not on file Tobacco Use ??? Smoking status: Never Smoker ??? Smokeless tobacco: Never Used Substance and Sexual Activity ??? Alcohol use: No Comment: Quit, 2000 ??? Drug use: No ??? Sexual activity: Not on file Lifestyle ??? Physical activity Days per week: Not on file Minutes per session: Not on file ??? Stress: Not on file Relationships ??? Social connections Talks on phone: Not on file Gets together: Not on file Attends jain service: Not on file Active member of club or organization: Not on file Attends meetings of clubs or organizations: Not on file Relationship status: Not on file ??? Intimate partner violence Fear of current or ex partner: Not on file Emotionally abused: Not on file Physically abused: Not on file Forced sexual activity: Not on file Other Topics Concern ??? Not on file Social History Narrative ??? Not on file Family History Problem Relation Age of Onset ??? Heart Failure Mother ??? Hypertension Father ??? Asthma Sister ??? Diabetes Maternal Grandmother ROS: Review of all other systems negative except for those mentioned above or indicated below: System Symptom Presence Constitutional Weight Loss no Weight gain 30 lbs this winter Eyes History of glaucoma Maybe, she is unsure ENT/Mouth Mouth sores/Dry mouth Dry mouth Cardiovascular Chest pain Chest ache but she doesn't know when but thinks it is related to her anxiety and depression Leg swelling Respiratory Wheezing SOB Yes, maybe due to inactivity GI Nausea/vomiting Constipation X extensive history Abdominal pain Skin/Breast Breast masses Has yearly mammography, has breast tenderness on the right for the last few months Rash/ulcer Musculoskeletal Muscle weakness Trouble Walking Neurological Dizziness/falling Fell 3 weeks ago, but doesn't usually. She feels unsteady sometimes Numbness Psychiatric Depression x Anxiety x Endocrine Abnormal thirst Menopause: Y/N / age? y / unsure Hot flashes Hematologic Frequent bruising History of blood transfusions no Blood clots (DVT / PE) No, only prophylactic Prior problems w/ anesthesia none Last Pap smear: S/p hysterectomy in 2010 Outside medical records reviewed: yes Data reviewed (images/urodynamic studies): To further delineate patient's urinary symptoms, a urinedip test and postvoid residual via bladder scanner were obtained. Results for orders placed or performed in visit on 08/01/19 POCT urine dipstick Result Value Ref Range POC Sp [place] 1.002 1.002 - 1.030 POC pH, UA 5 5.0 - 8.5 POC Leuk, UA Neg. Negative - Negative POC Nitrite, UA Neg. Negative - Negative POC Protein, UA Neg. Negative - Negative mg/dL POC Glucose, UA Norm. Normal - Normal mg/dL POC Ketone, UA Neg. Negative - Negative POC Urobil, UA Norm. 0.2 - 1.0 mg/dL POC Bili, UA Neg. Negative - Negative POC Blood, UA Neg. Negative - Negative jimbo/uL Bladder Scanner Result Value Ref Range Bladder Scan (mL) 48 mL OBJECTIVE: LMP 01/27/2011 General: normal appearing female, pleasant mood, normal speech Skin: skin of abdomen/pelvis without lesions Respiratory: clear to auscultation bilaterally Neuro: no paraspinous tenderness; saddle sensory function (S2-4) intact in the pelvic area to touch Cardiac: regular rate and rhythm, no appreciated murmurs Gastrointestinal: no palpable masses/organomegaly, soft/nontender, no appreciable hernia Musculoskeletal: levator ani tone (0-5): 0, levator ani contraction (0-5): 0, no levator tenderness; lower extremity motor 5/5 bilaterally Pelvic: Cough stress test (empty supine): negative External Genitalia: Vulva, [place]'s and Bartholin glands normal, urethra without tenderness or mass Vagina: With Valsalva, the anterior vaginal wall comes 2 cm inside the hymen, the posterior vagina wall comes 1 cm inside the hymen, and the cervix/apex comes 7 cm inside the hymen Atrophic epithelium (yes/no)?: yes Discharge?: n/a Cervix: Surgically absent Bimanual (uterus/adnexa): uterus surgically absent; no obvious adnexal masses, tenderness over the right lower quadrant Rectovaginal: Enterocele: no obvious enterocele Rectocele: small Anal sphincter: Resting tone: 5/5 External anal sphincter: intact POP Q Measurements: Aa -2 Ba -2 C -7 GH 2.5 3 PB 1.5 1.5 TVL 9 Ap -1 Bp -1 D x Impression: Ms. Ramírez is a .59 y.o. woman with: ?? Chronic constipation ?? Stable prolapse, no obvious enterocele ?? Vaginal atrophy Recommendations: I reviewed the anatomy and physiology of prolapse, vaginal atrophy and chronic constipation. We discussed that For her chronic constipation, recommend fiber supplementation as well as the colace and continuing management with GI. I would recommend evaluation with pelvic floor physical therapy for puborectalisrelaxation to help with defecation based on an anal manometry study she had in 2016. She has previously been advised to use a squatty potty in the past. For the vaginal atrophy, Uberlube samples given. She would be interested in trying compounded vaginal estrogen. This may be cost limiting as well. This patient was seen and evaluated with Dr. Velasco Urogyn attending physician, with whom the plan was formulated. [place] Carbajal MD PGY7 I saw and evaluated the patient . I discussed with Dr. Carbajal and agree with her findings and plan, as documented in the note above, which I have reviewed and edited. CASEY VELASCO MD Division of Female Pelvic Medicine/Reconstructive Surgery CC: TORI Mendoza APRN documented in this encounter Plan of Treatment Scheduled Referrals Name Type Priority Associated Diagnoses Orde r Schedule Referral to Physical Therapy Outpatient Referral Routine Dyssynergic Defecation Ordered: 08/01/2019 documented as of this encounter Procedures Procedure Name Priority Date/Time Associated Diagnosis Comments BLADDER SCANNER Routine 08/01/2019 Prolapse of vaginal wall POCT URINE DIPSTICK Routine 08/01/2019 Prolapse of vaginal wall documented in this encounter Results * Bladder Scanner (08/01/2019) Bladder Scan (mL) 48 mL Casey Velasco MD URO PROC W/O RFL ORD ERABLES * POCT urine dipstick (08/01/2019) POC Sp [place] 1.002 1.002 - 1.030 POC pH, UA 5 5.0 - 8.5 POC Leuk, UA Neg. Negative - Negative POC Nitrite, UA Neg. Negative - Negative POC Protein, UA Neg. Negative - Negative mg/dL POC Glucose, UA Norm. Normal - Normal mg/dL POC Ketone, UA Neg. Negative - Negative POC Urobil, UA Norm. 0.2 - 1.0 mg/dL POC Bili, UA Neg. Negative - Negative POC Blood, UA Neg. Negative - Negative jimbo/uL Casey Velasco MD POINT OF CARE TEST O RDERABLES documented in this encounter Visit Diagnoses Diagnosis Dyssynergic defecation Urge urinary incontinence Urge incontinence Prolapse of vaginal wall Unspecified prolapse of vaginal rodriguez Vaginal atrophy Postmenopausal atrophic vaginitis Dyspareunia, female Dyspareunia documented in this encounter Care Teams Chief Electrician Relationship Specialty Start Date End Date Shashi Verma PA [address] [place] [address] PCP - General Family Medicine 04/06/16 01/14/20 documented as of this encounter
--- OUTSIDE RECORDS SUMMARY | 2024-01-10 02:02 | XMS_ITS | Data Portability ---
Author Organization ID - [facility] [place] [address] Assessment No assessment recorded. Plan of Treatment Reminders Order Date Submit Date Provider Last Modified By Organization Details Last Modified Time Details Appointments Follow Up 30 2023 09:30A M Not available Not available Not available Lab HbA1c (hemoglo bin A1c), blood [email or web address] [facility] (Registration ), [address] [place] [address] [place], [address], 08/15/2023 13:12:19 BMP, serum or plasma [email or web address] [facility] (Registration ), [address] [place] [address] [place], [address], 08/15/2023 13:12:19 TSH + free T4, serum [address] [facility] (Registration ), [address] [place] [address] [place], [address], 08/15/2023 13:12:19 Referral None recorded . Procedures None recorded . Surgeries None recorded . Imaging None recorded . Medication Orders ketorola c 60 mg/2 mL intramus cular solution 2023 024 [email or web address] Not available 11/14/2023 08:54:50 Patient TargetsNo targets recorded. Patient InstructionsNo instructions recorded. Reason for Referral None Reported. Results Created Date Observation Date Name Description Value Unit Range Abnormal Flag LastModifiedBy Organization Detail LastModifiedTime 08/08/19 24 08/08/2023 LASIC METAB OLIC PANEL calcium 9.4 mg/dL 8.5-10 .1 normal Not Available [address] [place], [id number] 08/08/2023 16:15:14 08/08/1908/08/2023 LASIC METAB OLIC PANEL glucose 102 mg/dL 74-106 normal Not Available [address] [place], [id number] 08/08/2023 16:15:14 08/08/1908/08/2023 LASIC METAB OLIC PANEL BUN 12 mg/dL 7-[address] [facility] [address] [place], [address] 08/08/2023 16:15:14 08/08/1908/08/2023 LASIC METAB OLIC PANEL creatinine 0.6 mg/dL 0.55-1 .02 normal Not Available [address] [place], [id number] 08/08/2023 16:15:14 08/08/19 24 08/08/2023 LASIC METAB OLIC PANEL estimated GFR 102.06 mL/min /1.73m 2 Not Available [address] [place], [id number] 08/08/2023 16:15:14 08/08/19 24 08/08/2023 LASIC METAB OLIC PANEL sodium 136 mmol/ L 136-14 5 normal Not Available [address] [place], [id number] 08/08/2023 16:15:14 08/08/19 24 08/08/2023 LASIC METAB OLIC PANEL potassium 4.3 mmol/ L 3.5-5. 1 normal Not Available [address], [address] 08/08/2023 16:15:14 08/08/19 24 08/08/2023 LASIC METAB OLIC PANEL chloride 101 mmol/ L 98-107 normal Not Available [address] [place], [address] 08/08/2023 16:15:14 08/08/19 24 08/08/2023 LASIC METAB OLIC PANEL CO2 24.2 mmol/ L 21.0-3 2.0 normal Not Available [address] [place], [address] 08/08/2023 16:15:14 08/08/19 24 08/08/2023 LASIC METAB OLIC PANEL anion gap 10.8 mmol/ L 3-11 normal Not Available [address] [place], [address] 08/08/2023 16:15:14 08/08/19 24 08/08/2023 TSH TSH 2.64 uIU/m L 0.36-3 .74 normal Not Available [address] [place], [address] 08/08/2023 16:15:15 08/08/19 24 08/08/2023 FREE T4 free T4 0.86 NG/dL 0.76-1 .46 normal Not Available [address] [place], [address] 08/08/2023 16:15:15 08/08/19 24 08/08/2023 HEMOG LOBIN A1C hemoglobin A1C 5.7 % <5.7 Not Available [address] [place], [address] 08/08/2023 16:49:20 01/01/20 24 01/01/2024 hemog lobin A1C, finge rstic k hemoglobin A1C 5.4 % <5.7 Not Available [address], [address], 01/01/2024 10:22:34 Result Notes None recorded. Problems Name Status Onset Date Resolution Date Notes Provider Name and Address Organization Details Recorded Time Obesity Active 2010 Problem Code: E66.9; Problem Code Type: ICD-10; Not Available [facility] 3 04:09:32 Chronic alcoholism in remission Active 2010 Problem Code: F10.21; Problem Code Type: ICD-10; Not Available [facility] 3 04:09:32 Gastroesophag eal reflux disease without esophagitis Active 201011/26/2020 - Comments only - Mandy Farris PA-C - Patient encouraged to RS on PROTONIX 40mg QD. Problem Code: K21.9; Problem Code Type: ICD-10; Not Available [facility] 3 04:09:32 Hyperlipidemi a Active 201011/17/2016 - Comments only - Mandy Farris PA-C - D/C from statin therapy since May due to elevated CPK. Will repeat lipid profile today as monitoring. Problem Code: E78.5; Problem Code Type: ICD-10; Not Available [facility] 3 04:09:32 Bipolar disorder Active 201008/09/2022 - Comments only - Mandy Farris PA-C - Well established with [facility]. To continue on current treatment regimen (WELLBUTRIN, VYVANSE, ATIVAN, L-METHYLFOLAT E, NAC, VITAMIN D) as RXd by speciality service provider Problem Code: F31.9; Problem Code Type: ICD-10; Not Available [facility] 3 04:09:32 Iron deficiency anemia Active 2010 Problem Code: D50.9; Problem Code Type: ICD-10; Not Available [facility] 3 04:09:32 Acquired absence of cervix and uterus Active 2011 Problem Code: Z90.710; Problem Code Type: ICD-10; Not Available [facility] 3 04:09:32 Menopause present Active 201008/09/2022 - Comments only - Mandy Farris PA-C - Will re-evaluated patient interest in HRT with future visits. Problem Code: Z78.0; Problem Code Type: ICD-10; Not Available [facility] 3 04:09:32 Knee joint prosthesis present Active 201212/03/2015 - Comments only - Mandy Farris PA-C - Order for annual ortho recheck initiated in EMR. Problem Code: Z96.653; Problem Code Type: ICD-10; Not Available [facility] 3 04:09:32 Edema Active 201411/26/2020 - Comments only - Mandy Farris PA-C - As per patient request, will initiate process for replacement of compression stockings via local provider. Problem Code: R60.9; Problem Code Type: ICD-10; Not Available [facility] 3 04:09:33 Irritable bowel syndrome characterized by constipation Active 201402/18/2019 - Comments only - Mandy Farris PA-C - Established with [facility] gastroenterol florentino. To continue on PROTONIX, AMITIZA, and MIRALAX/PERIC OLACE PRN as RXd by specialty service provider. Problem Code: K58.1; Problem Code Type: ICD-10; Not Available [facility] 3 04:09:33 Chronic sinusitis Completed 201403/03/2015 02/19/2015 - Comments only - Mandy Farris PA-C - Will treat with RXd ZITHROMAX as ZPAK and PREDNISONE 40mg QD x 5d. Ok to supplement with PROAIR and/or TESSALON PERLES as needed. Problem Code: J32.9; Problem Code Type: ICD-10; Not Available [facility] 3 04:09:33 Acute bronchitis Completed 201403/03/2015 Problem Code: J20.9; Problem Code Type: ICD-10; Not Available [facility] 3 04:09:33 Adult health examination Active 201405/14/2019 - Comments only - Mandy Farris PA-C - STI screening completed today. Patient received flu vaccine through local pharmacy earlier in season. Problem Code: Z00.00; Problem Code Type: ICD-10; Not Available [facility] 3 04:09:33 Low back pain Active 201406/02/2021 - Comments only - Mandy Farris PA-C - Treated with TORADOL 60mg IM today, which Shobha agrees to follow with RXd TORADOL 10mg PO Q 6h PRN (to replace IBUPROFEN). She will otherwise continue to follow with PT for guided rehab as scheduled. Problem Code: M54.5; Problem Code Type: ICD-10; Not Available [facility] 3 04:09:33 Snoring Active 201505/09/2016 - Comments only - Mandy Farris PA-C - Patient to f/u as scheduled for formal sleep study via [facility]. Problem Code: R06.83; Problem Code Type: ICD-10; Not Available [facility] 3 04:09:33 Acute vaginitis Completed 201512/07/2015 12/03/2015 - Comments only - Mandy Farris PA-C - Will await results of today's collected VPS to r/o for acute vaginal infection. Regardless of findings, however, in an effort to reduce patient reported sxs of vaginal dryness, will increase PREMARIN to 0.9mg QD as trial. Problem Code: N76.0; Problem Code Type: ICD-10; Not Available [facility] 3 04:09:33 Attention deficit hyperactivity disorder Active 201509/06/2022 - Comments only - Mandy Farris PA-C - - MDD, ANXIETY, PTSD, ADHD Well established with [facility]. Encouraged to re-engage with community support groups for socialization +/- advance discussion with specialty service provider about retrial of antidepressan t/anxiolytic therapies with next scheduled f/u visit. In the interim, she will continue on current treatment regimen (WELLBUTRIN, VYVANSE, ATIVAN, L-METHYLFOLAT E, NAC, VITAMIN D) as RXd. Problem Code: F90.9; Problem Code Type: ICD-10; Not Available [facility] 3 04:09:34 Fitting of hearing aid Completed 201611/09/2016 Problem Code: Z46.1; Problem Code Type: ICD-10; Not Available [facility] 3 04:09:34 Bilateral hearing loss Active 2016 Problem Code: H91.8x3; Problem Code Type: ICD-10; Not Available [facility] 3 04:09:34 Vitreous opacities Completed 201602/21/2017 Problem Code: H43.399; Problem Code Type: ICD-10; Not Available [facility] 3 04:09:34 External hearing aid in situ Completed 201605/23/2017 Problem Code: Z97.4; Problem Code Type: ICD-10; Not Available [facility] 3 04:09:34 Pain in left foot Completed 201605/23/2017 Problem Code: M79.672; Problem Code Type: ICD-10; Not Available [facility] 3 04:09:34 Malaise Completed 201605/23/2017 Problem Code: R53.81; Problem Code Type: ICD-10; Not Available [facility] 3 04:09:34 Fibromyalgia Active 201602/18/2019 - Comments only - Mandy Farris PA-C - Patient opting to hold off on return to PT and/or pursuing MRI to guide [facility] refer for the time being. She agrees to reconsider for these more advanced treatment interventions with AE this winter. Problem Code: M79.7; Problem Code Type: ICD-10; Not Available [facility] 3 04:09:35 Trochanteric bursitis of left hip Completed 201709/20/2017 09/06/2017 - Comments only - Mandy Farris PA-C - Will initiate refer to ortho ([facility]) for consideration towards injection. In the interim, to continue on OTC TYLENOL (appropriate dosing instructions reviewed) PRN for pain. Problem Code: M70.62; Problem Code Type: ICD-10; Not Available [facility] 3 04:09:35 Generalized enlarged lymph nodes Completed 201709/20/2017 09/06/2017 - Comments only - Mandy Farris PA-C - Will arrange for US imaging via [facility] at next available. Problem Code: R59.1; Problem Code Type: ICD-10; Not Available [facility] 3 04:09:35 Fatigue Completed 201701/08/2018 Problem Code: R53.83; Problem Code Type: ICD-10; Not Available [facility] 3 04:09:35 Hand pain Completed 201701/08/2018 12/25/2017 - Comments only - Mandy Farris PA-C - Will consider for [facility]Sing rheumatology consult based upon results of requested bilateral hand x-rays and laboratory testing. Problem Code: M79.643; Problem Code Type: ICD-10; Not Available [facility] 3 04:09:35 Infection of skin and/or subcutaneous tissue Completed 201701/08/2018 12/25/2017 - Comments only - Mandy Farris PA-C - Patient reassured that wound appears to be healing well. Advised to continue on AUGMENTIN as RXd by ED personnel and perform wound care (ABX OINTMENT and bandage dressing in day, open to air in PMS). To f/u with PCP vs. return to ED with complications . Problem Code: L08.89; Problem Code Type: ICD-10; Not Available [facility] 3 04:09:35 Abnormal findings diagnostic imaging heart+coronar y circulat Active 201702/18/2019 - Comments only - Mandy Farris PA-C - As per [facility] cardiology, due for repeat echocardiogra m 12/2019 Problem Code: R93.1; Problem Code Type: ICD-10; Not Available [facility] 3 04:09:36 Dysphagia Completed 201702/05/2018 01/22/2018 - Comments only - Mandy Farris PA-C - Will arrange for barium swallow at [facility] at next available. In the interim, Shobha will continue on PROTONIX 40mg QD as RXd. Problem Code: R13.10; Problem Code Type: ICD-10; Not Available [facility] 3 04:09:36 Vitamin D deficiency Active 201701/22/2018 - Comments only - Mandy Farris PA-C - Patient to begin on VITAMIN D 1000U QD Problem Code: E55.9; Problem Code Type: ICD-10; Not Available [facility] 3 04:09:36 Foot pain Completed 201705/08/2018 Problem Code: M79.673; Problem Code Type: ICD-10; Not Available [facility] 3 04:09:36 Hand pain Active 201704/24/2018 - Comments only - Mandy Farris PA-C - Will refer to ortho ([facility]) for consideration towards joint injections. Problem Code: M79.643; Problem Code Type: ICD-10; Not Available [facility] 3 04:09:36 Cough Completed 201807/06/2018 Problem Code: R05; Problem Code Type: ICD-10; Not Available [facility] 3 04:09:36 Left bundle branch block Active 201805/14/2019 - Comments only - Mandy Farris PA-C - - LBBB, VASCULAR HEART DISEASE As per [facility] cardiology, due for repeat echocardiogra 12/2019 Problem Code: I44.7; Problem Code Type: ICD-10; Not Available [facility] 3 04:09:37 Acute sinusitis Completed 201807/06/2018 06/24/2018 - Comments only - Mandy Farris PA-C - Will treat with RXd AUGMENTIN 500-125mg BID x 10d. OK to continue to supplement with RFd TESSALON PERLES PRN. Problem Code: J01.90; Problem Code Type: ICD-10; Not Available [facility] 3 04:09:37 Mass of neck Completed 201808/06/2018 07/23/2018 - Comments only - Mandy Farris PA-C - Suspect lipoma. As lesion is not currently overly bothersome to patient, will hold off on surgical refer for excisonal biopsy. Will continue to monitor for interval change with future visits. Not Available [facility] 3 04:09:37 Headache Completed 201808/06/2018 07/23/2018 - Comments only - Mandy Farris PA-C - After consult with [facility], patient to return to meet with OE specialist to assist in on-line ordering of updated glasses. Problem Code: R51; Problem Code Type: ICD-10; Not Available [facility] 3 04:09:37 Neck pain Completed 201810/29/2018 Problem Code: M54.2; Problem Code Type: ICD-10; Not Available [facility] 3 04:09:37 Joint pain Completed 201810/29/2018 10/15/2018 - Comments only - Mandy Farris PA-C - Will update C and L spine imaging via [facility] to determine extent of progression of degenerative arthritis. May consider for [facility] vs. [facility] refer vs. rheumatology consult based upon results of same. Problem Code: M25.50; Problem Code Type: ICD-10; Not Available [facility] 3 04:09:38 Disorder of external ear Completed 201810/29/2018 10/15/2018 - Comments only - Mandy Farris PA-C - Treated with ear lavage in-office today as reuqested by audiology Problem Code: H61.899; Problem Code Type: ICD-10; Not Available [facility] 3 04:09:38 Disorder of nasal sinus Completed 201803/04/2019 02/18/2019 - Comments only - Mandy Farris PA-C - Patient reassured no evidence on today's PX to suggest for bacterial sinusitis to warrant ABX treatment. Instead, suggested for Shobha to resume RFd FLONASE PRN for relief of congestive sxs. Not Available [facility] 3 04:09:38 Venereal disease screening Completed 201805/28/2019 Problem Code: Z11.3; Problem Code Type: ICD-10; Not Available [facility] 3 04:09:38 Cough Active 201901/19/2022 - Comments only - Mandy Farris PA-C - CHRONIC COUGH, SINUS CONGESTION Scheduled for surgical treatment intervention via [facility] 11/12/21. In the interim, patient encourated to use SYMBICORT BID via spacer (agrees to consider PROAIR MDI as rescue with future visits) and ZYRTEC 10mg QD and supplement with FLONASE and RFd TESSALON PERLES PRN. Problem Code: R05; Problem Code Type: ICD-10; Not Available [facility] 3 04:09:38 Upper respiratory tract infection caused by Influenza virus Completed 201908/21/2019 08/12/2019 - Comments only - Mandy Farris PA-C - Given concern for developing secondary pneumonia, will cover with DOXYCYCYLINE 100mg BID. Additionally, will replace TESSALON PERLES with RXd ROBITUSSIN AC PRN for severe cough. We have arranged for Shobha to return to [facility] for medical recheck upon completion of ABX treatment, however, certainly she understands to reach out to provider vs. local ED with any problems or concerns for symptomatic escalation in the interim. Problem Code: J10.1; Problem Code Type: ICD-10; Not Available [facility] 3 04:09:39 Seasonal allergic rhinitis Completed 201912/17/2019 12/03/2019 - Comments only - Mandy Farris PA-C - Having failed antihistamine s (ZYRTEC, CLARITIN), patient agrees to trial RXd SINGULAIR 10mg QD, which may have some positive pulmonary effect. Problem Code: J30.2; Problem Code Type: ICD-10; Not Available [facility] 3 04:09:39 Elevated blood-pressur e reading without diagnosis of hypertension Completed 201902/07/2020 01/24/2020 - Comments only - Madny Farris PA-C - Today's BP up. Review of EMR suggests 150/90 on 12/03/19 and 134/78 on 08/20/19. Given potential for this to influence RXing of stimulant therapy, will continue to monitor closely with future vistis. Problem Code: R03.0; Problem Code Type: ICD-10; Not Available [facility] 3 04:09:39 Dyspnea Active 201909/14/2021 - Comments only - Mandy Farris PA-C - Patient poorly motivated towards using inhaled therapies on a more consistent basis. She is agreeable, however, to use FLONASE PRN. Problem Code: R06.00; Problem Code Type: ICD-10; Not Available [facility] 3 04:09:39 Lumbosacral radiculopathy Completed 201903/23/2020 03/09/2020 - Comments only - Mandy Farris PA-C - Suspect L5-S1 discogenic process. After reviewing various treatment options, Shobha is agreeable to move forward with IM TORADOL injection today. She will call [facility] tomorrow for status update - if with good response to injection, will advance with RX TORADOL 10mg PO Q6h PRN (#20 with no RFs) as alternative to IBUPROFEN; if with no signficant relief with today's injection, will consider MEDROL DOSEPAK as alternative. Additionally, will maintain low index for refer to PT for guided rehab should sxs prove ongoing. Problem Code: M54.16; Problem Code Type: ICD-10; Not Available [facility] 3 04:09:39 Elevated blood-pressur e reading without diagnosis of hypertension Completed 201904/21/2020 04/07/2020 - Comments only - Mandy Farris PA-C - Today's BP remains elevated. Shobha is quite reluctant to begin on additional pharmacologic therapies at this time. Instead, she would prefer to focus efforts on lifestyle modication for weight loss. Will refer to [facility] Walking Program as above. Problem Code: R03.0; Problem Code Type: ICD-10; Not Available [facility] 3 04:09:40 Elevated blood-pressur e reading without diagnosis of hypertension Active 202009/06/2022 - Comments only - Mandy Farris PA-C - - HTN Improved on SPIRONOLACTON E 25mg QD. Unless with evidence on today's laboratory testing for this therapy has contributing to electrolyte disturbance, to continue with same. Problem Code: R03.0; Problem Code Type: ICD-10; Not Available [facility] 3 04:09:40 Prediabetes Active 201809/06/2022 - Comments only - Mandy Farris PA-C - Repeat A1C collected today as monitoring Problem Code: R73.03; Problem Code Type: ICD-10; Not Available [facility] 3 04:09:40 Bilateral tinnitus Active 2020 Problem Code: H93.13; Problem Code Type: ICD-10; Not Available [facility] 3 04:09:40 Left lower quadrant pain Completed 202010/23/2020 Problem Code: R10.32; Problem Code Type: ICD-10; Not Available [facility] 3 04:09:41 Increased frequency of urination Completed 202010/30/2020 Problem Code: R35.0; Problem Code Type: ICD-10; Not Available [facility] 3 04:09:41 Severe recurrent major depression without psychotic features Active 202009/14/2021 - Comments only - Mandy Farris PA-C - Patient encouraged to advance discussion with [facility] provider at next visit re: sleep issues and acute panic sxs. ?role for QHS +/- PRN dosing of benzodiazepin e therapy for management, as ATIVAN seems to be one of the few medications that patient tolerates without issue. Problem Code: F33.2; Problem Code Type: ICD-10; Not Available [facility] 3 04:09:41 Cellulitis of right upper limb Completed 202012/09/2020 11/26/2020 - Comments only - Mandy Farris PA-C - Will treat with RXd AUGMENTIN 5000-125mg BID x 7d. Patient agrees to continue to wash daily with soap and water and monitor closely for signs of progressive infection (streaking, drainage, fever) Problem Code: L03.113; Problem Code Type: ICD-10; Not Available [facility] 3 04:09:42 Dizziness and giddiness Active 2020 Problem Code: R42; Problem Code Type: ICD-10; Not Available [facility] 3 04:09:42 Acute bronchitis Completed 202108/20/2021 08/06/2021 - Comments only - Sreekanth Das MD - Presenation c/w URI on top of a chornic cough/SOB that has not been diagnosis. COVID swab negative. Discussed supportive care. Has tesslon and LOREN. add dextromethorp seymour/guaficine prn. Could consider prednisone if not improving. Problem Code: J20.8; Problem Code Type: ICD-10; Not Available [facility] 3 04:09:42 COVID-19 Active 202108/30/2021 - Comments only - Mandy Farris PA-C - As per patient request, rapid COVID testing completed today, which returned NEGATIVE to suggest Shobha is no longer in transmissable stage of infection. Will cover for ?secondary sinusitis and herpes labialis with RXd AMOXIL 500mg BID x 10d and VALTREX 2g Q12h x 2 respectively. Shobha agrees to return to [facility] in 2 weeks for medical recheck as monitoring, however, certainly she understands she is to reach out more acutely with problems or concerns for symptomatic escalation in the interim. Problem Code: U07.1; Problem Code Type: ICD-10; Not Available [facility] 3 04:09:42 Follicular cysts of skin and subcutaneous tissue Completed 202109/13/2021 08/30/2021 - Comments only - Mandy Farris PA-C - Will refer to ENT/plastic surgery for consult for excisional procedure. Problem Code: L72.9; Problem Code Type: ICD-10; Not Available [facility] 3 04:09:42 Eczema Completed 202109/28/2021 09/14/2021 - Comments only - Mandy Farris PA-C - Shobha was encouraged to reduce shower temperature and minimize use of soap (armpits, groin, feet, and hands only) to avoid further drying of skin. Will use RXd TRIAMCINOLONE CREAM BID to LE lesions, which she may follow with thick, non-fragrance d emollient moisturizer. Problem Code: L30.9; Problem Code Type: ICD-10; Not Available [facility] 3 04:09:43 Pain in thoracic spine Active 202101/19/2022 - Comments only - Mandy Farris PA-C - Treated today with IM TORADOL injection, which has been quite effective for her in the past (last 05/2021). She agrees to call if she desires to follow with PO course (10mg Q6h PRN #20 with no RFs) as short term replacement for OTC IBUPROFEN vs. CELEBREX 200mg QD. Patient agrees to give further thought towards return to PT with future visits. Problem Code: M54.9; Problem Code Type: ICD-10; Not Available [facility] 3 04:09:43 Disorder of nasal sinus Completed 202104/29/2022 Not Available [facility] 3 04:09:43 Chronic rhinitis Active 202209/06/2022 - Comments only - Mandy Farris PA-C - - CHRONIC COUGH, SINUS CONGESTION Patient reminded that, without RSing for sinus surgery through [facility], we may have some difficulty in gaining full control of chronic congestive sxs. She does not feel in a position to pursue this presently, however. As such, she may continue on ADVAIR HFA and ZYRTEC 10mg QD and supplement with FLONASE and RFd TESSALON PERLES PRN. Problem Code: J31.0; Problem Code Type: ICD-10; Not Available [facility] 3 04:09:44 Screening mammography Active 2022 Problem Code: Z12.31; Problem Code Type: ICD-10; Not Available [facility] 3 04:09:44 Hyperglycemia Completed 201802/22/2023 Problem Code: R73.9; Problem Code Type: ICD-10; Not Available [facility] 3 04:09:44 Iron deficiency anemia Completed 201011/03/2014 Problem Code: 280.9; Problem Code Type: ICD-9; Not Available [facility] 3 04:09:45 Urinary incontinence Completed 201007/20/2020 Problem Code: R32; Problem Code Type: ICD-10; Not Available [facility] 3 04:09:45 Hearing loss Completed 202011/10/2020 Problem Code: H91.90; Problem Code Type: ICD-10; Not Available [facility] 3 04:09:45 Constipation Completed 201601/22/2018 Problem Code: K59.09; Problem Code Type: ICD-10; Not Available [facility] 3 04:09:45 Muscle pain Completed 201502/07/2017 Problem Code: M79.1; Problem Code Type: ICD-10; Not Available [facility] 3 04:09:46 Medial epicondylitis Completed 201512/25/2017 Problem Code: M77.00; Problem Code Type: ICD-10; Not Available [facility] 3 04:09:46 Hypothyroidis m Completed 201407/20/2020 Problem Code: E03.9; Problem Code Type: ICD-10; Not Available [facility] 3 04:09:47 Muscle atrophy Completed 201502/07/2017 Problem Code: N81.84; Problem Code Type: ICD-10; Not Available [facility] 3 04:09:47 Illiterate literacy level Completed 201002/22/2023 Not Available [facility] 3 04:09:47 Hysterectomy Completed 201006/23/2015 Not Available [facility] 3 04:09:48 Constipation Completed 201402/22/2023 11/17/2016 - Comments only - Mandy Farris PA-C - To continue on RFd COLACE +/- MIRALAX PRN. Problem Code: K59.00; Problem Code Type: ICD-10; Not Available [facility] 3 04:09:48 Arthralgia of the ankle and/or foot Completed 201502/07/2017 Problem Code: M25.571; Problem Code Type: ICD-10; Not Available [facility] 3 04:09:48 Headache Completed 201502/07/2017 Problem Code: R51; Problem Code Type: ICD-10; Not Available [facility] 3 04:09:48 Mixed urinary incontinence Completed 201002/22/2023 Problem Code: 788.33; Problem Code Type: ICD-9; Not Available [facility] 3 04:09:49 Joint pain Completed 201602/22/2023 04/24/2018 - Comments only - Mandy Farris PA-C - To continue on LYRICA 50mg; titrate to BID as tolerated. Problem Code: M25.50; Problem Code Type: ICD-10; Not Available [facility] 3 04:09:49 High risk heterosexual behavior Completed 201502/07/2017 Problem Code: Z72.51; Problem Code Type: ICD-10; Not Available [facility] 3 04:09:49 Pain in right arm Completed 201612/25/2017 Problem Code: M79.601; Problem Code Type: ICD-10; Not Available [facility] 3 04:09:50 Nondependent alcohol abuse in remission Completed 201002/22/2023 Problem Code: 305.03; Problem Code Type: ICD-9; Not Available [facility] 3 04:09:50 Gastroesophag eal reflux disease Completed 201002/22/2023 Not Available [facility] 3 04:09:50 Pain of right wrist Completed 201602/07/2017 Problem Code: M25.531; Problem Code Type: ICD-10; Not Available [facility] 3 04:09:51 General examination of patient Completed 201712/25/2017 Problem Code: Z00.8; Problem Code Type: ICD-10; Not Available [facility] 3 04:09:51 Disorder of skin and/or subcutaneous tissue Completed 201612/25/2017 Problem Code: L98.9; Problem Code Type: ICD-10; Not Available [facility] 3 04:09:51 Acute upper respiratory infection Completed 201901/24/2020 Problem Code: J06.9; Problem Code Type: ICD-10; Not Available [facility] 3 04:09:52 Non-toxic uninodular goiter Completed 201404/12/2015 Problem Code: E04.1; Problem Code Type: ICD-10; Not Available [facility] 3 04:09:52 Notes:*Problem Name: Illiter ate *ICD-10 Codes: *Problem Status: inactive *Comments: *Problem Code Type: CPT *Note Date: 04/10/2011 *Problem Name: Normal Colonoscopy December 2012--next In 2022 *ICD-10 Codes: *Problem Status: inactive *Comments: *Note Date: 02/04/2013 *Problem Name: S/p Bilateral Knee Replacments *ICD-10 Codes: *Problem Status: inactive *Comments: *Note Date: 12/24/2012 *Problem Name: S/p Hysterectomy, Ovaries In Place *ICD-10 Codes: *Problem Status: inactive *Comments: *Note Date: 08/05/2011 *Problem Name: Normal Colonoscopy December 2012--next In 2022 *ICD-10 Codes: *Problem Status: inactive *Comments: *Problem Code Type: CPT *Note Date: 02/04/2013 *Problem Name: Subcutaneous mass of right leg *Problem Status: inactive *Comments: *Problem Code: R22.41 *Problem Code Type: ICD-10 *Note Date: 01/13/2017 Problem Notes None recorded. Medical Equipment None Reported. Allergies Allergen ID Allergen Name Allergen Category Reaction Reaction Severity Criticality Documentation Date Start Date Code Code System Note Provider Name and Address Organization Details Recorded Time 22825 oxycodone hydrochlo ride medicatio n itching moderate Not available 04/07/20232012 08494 RxNorm Itchy Aller gyRea ction : 'Itch y'; Not Available [facility] 3 16:29:19 Medications Name Sig Start Date Stop Date Status Note LastModified by Organization Details LastModified Time Singulair 10 mg tablet Take 1 tablet by mouth once a day 02/22 completed Not Available Not Available Not Available losartan 50 mg tablet Take 1 tablet by mouth once a day 06/27 completed Not Available Not Available Not Available celecoxib 200 mg capsule TAKE ONE CAPSULE BY MOUTH TWICE A DAY NEEDED FOR PAIN active Not Available Not Available No t Available cyclobenz aprine 10 mg tablet 1 tab @ HS prn 03/06 completed Not Available Not Available Not Available Augmentin 875 mg-125 mg tablet Take 1 tab by mouth twice daily. 01/01 completed Not Available Not Available Not Available venlafaxi ne ER 37.5 mg capsule,e xtended release 24 hr Take 1 by mouth daily 05/09 completed Gabriela Salas Not Available Not Available Not Available Carafate 100 mg/mL oral suspensio n 10 ml by mouth as needed 07/13 completed Not Available Not Available Not Available Norvasc 10 mg tablet Take 1 tablet by mouth once a day 2021 active Not Available Not Available Not Avai lable trazodone 50 mg tablet Take 1/2 tablet by mouth every night 04/07 completed [facility] Not Available Not Available Not Available cetirizin e 10 mg tablet TAKE ONE TABLET BY MOUTH EVERY DAY NEEDED FOR ALLERGIE S active Not Available Not Available No t Available ibuprofen 800 mg tablet Take 1 by mouth three times daily 06/23 completed Not Available Not Available Not Available valacyclo vir 1 gram tablet Take 2 tablet by mouth twice a day as needed q 12 hours for 2 doses 10/27 completed Not Available Not Available Not Available Keflex 500 mg capsule Take 1 tab by mouth three times daily 01/21 completed Not Available Not Available Not Available dextromet horphan-g uaifenesi n 10 mg-100 mg/5 mL oral liquid Take 10 ml by mouth every four hours as needed for cough 08/30 completed Not Available Not Available Not Available Flonase 50 mcg/DOSE nasal inhaler 2 SPRAY daily 2012 active Not Available Not Available Not Avai lable lisinopri l 20 mg tablet Take 1/2 tab by mouth daily x 1 week then increast to 1 tab daily 10/09 completed Not Available Not Available Not Available ondansetr on HCl 4 mg tablet Take 1 tablet by mouth every six hours as needed for travel 2023 active Not Available Not Available Not Avai lable Medrol (Skyler) 4 mg tablets in a dose pack follow directio ns on package 08/09 completed Not Available Not Available Not Available prednison e 20 mg tablet Take 2 tablet by mouth once a day for 5 days 11/25 completed Not Available Not Available Not Available Prilosec 40 mg capsule,d elayed release 1CAP daily 2014 active Not Available Not Available Not Avai lable sertralin e 100 mg tablet Take 1 tablet by mouth once a day 12/30 completed Not Available Not Available Not Available Mirapex 0.125 mg tablet 1 qhs Gabriela Salas 2015 active Not Available Not Available Not Avai lable Zithromax 250 mg tablet Take 2 by mouth today, then take 1 by mouth daily x 4 days 02/22 completed Not Available Not Available Not Available Diflucan 150 mg tablet Take 1 tablet by mouth single dose May repeat dose in 72 hours if symptoms have not complete ly resolved . 10/11 completed Not Available Not Available Not Available Wellbutri n SR 150 mg tablet, 12 hr sustained -release 2 tabs daily 11/22 completed RXD BY KURTIS Not Available Not Available Not Available Ultram 50 mg tablet 1 TAB TWICE DAILY NEEDED FOR BACK PAIN 10/17 completed Not Available Not Available Not Available metronida zole 500 mg tablet Take 1 tablet by mouth twice a day 10/16 completed Not Available Not Available Not Available melatonin 3 mg tablet 1 tablet by mouth at bedtime 02/[address]Moone moore Not Available Not Available Not Available Tamiflu 75 mg capsule Take 1 tab by mouth twice daily x 5 days 08/11 completed Not Available Not Available Not Available triamcino lone acetonide 0.1 % topical cream Apply a small amount to affected area once a day as needed FOR LEGS 2021 active Not Available Not Available Not Avai lable spironola ctone 25 mg tablet TAKE ONE TABLET BY MOUTH EVERY DAY 11/13 completed Not Available Not Available Not Available amoxicill in 500 mg tablet 1 tablet by mouth three times a day with food 04/28 completed Not Available Not Available Not Available simvastat in 40 mg tablet Take 1tablet by mouth at bedtime 10/17 completed Not Available Not Available Not Available ketorolac 10 mg tablet 1 tablet by mouth every six hours as needed 04/15 completed Not Available Not Available Not Available levothyro xine 75 mcg tablet 1 tab daily 04/10 completed Not Available Not Available Not Available Mobic 15 mg tablet Take 1 tab by mouth daily 05/09 completed Not Available Not Available Not Available Guaiatuss in AC 10 mg-100 mg/5 mL oral liquid Take 1-2 tsp by mouth every six hours as needed for cough 08/19 completed Not Available Not Available Not Available propranol ol 10 mg tablet 06/[address] [facility] Not Available Not Available Not Available amoxicill in 875 mg tablet TAKE ONE TABLET BY MOUTH EVERY 12 HOURS FOR 7 DAYS 08/07 completed Not Available Not Available Not Available Celebrex 100 mg capsule 1 qd 12/20 completed Not Available Not Available Not Available estradiol 0.025 mg/24 hr weekly transderm al patch Apply 1 patch to skin once a week 08/09 completed 08/10/19 PT IS NOT USING Not Available Not Available Not Available trazodone 100 mg tablet 1 qhs 03/25 completed Not Available Not Available Not Available Mirapex 0.25 mg tablet Take 1 tab by mouth daily 12/25 completed Not Available Not Available Not Available baclofen 10 mg tablet 1 TAB BY MOUTH TWICE DAILY NEEDED FOR MUSCLE PAIN 04/24 completed Not Available Not Available Not Available benzonata te 100 mg capsule TAKE ONE CAPSULE BY MOUTH THREE TIMES A DAY NEEDED FOR COUGH 08/07 completed Not Available Not Available Not Available Depakote ER 500 mg tablet,ex tended release 2 qhs 08/14 completed Not Available Not Available Not Available Lamictal 25 mg tablet 09/[address]Moone moore NK Not Available Not Available Not Available Tylenol 500 mg tablet TAKE 1-2 Q 6 H PRN 05/14 completed Not Available Not Available Not Available levothyro xine 50 mcg tablet Take 1 by mouth daily 12/25 completed RXD BY KURTIS Not Available Not Available Not Available pantopraz ole 40 mg tablet,de layed release TAKE ONE TABLET BY MOUTH EVERY DAY active Not Available Not Available No t Available simvastat in 20 mg tablet Take 1 by mouth daily 11/03 completed Not Available Not Available Not Available ferrous sulfate 325 mg (65 mg iron) tablet 1 TAB TID 12/24 completed Not Available Not Available Not Available Cipro 500 mg tablet Take 1 tablet by mouth twice a day 10/16 completed Not Available Not Available Not Available Norvasc 5 mg tablet Take 1 tablet by mouth once a day 08/09 completed Not Available Not Available Not Available triamcino lone acetonide 55 mcg nasal spray aerosol USE 2 SPRAYS IN EACH NOSTRIL ONCE DAILY active Not Available Not Available No t Available Concerta 36 mg tablet,ex tended release Take 1 tab by mouth daily 2017 active [facility] Not Available Not Available Not Avai lable bupropion HCl 75 mg tablet 1 tablet by mouth once a day 03/[address]Moone moore Not Available Not Available Not Available diclofena c potassium 50 mg tablet Take 1 tab by mouth twice daily NEEDED FOR JOINT PAIN 12/25 completed Not Available Not Available Not Available lisinopri l 30 mg tablet Take 1 tablet by mouth once a day 11/10 completed Not Available Not Available Not Available docusate sodium 100 mg capsule TAKE ONE CAPSULE BY MOUTH TWICE A DAY NEEDED active Not Available Not Available No t Available sertralin e 25 mg tablet Take 1 tablet every day by oral route. 2023 active Not Available Not Available Not Avai lable cephalexi n 500 mg tablet Take 4 tabs 1 hour prior to dental 09/06 completed Not Available Not Available Not Available bisacodyl 5 mg tablet,de layed release TAKE PER COLONOSC OPY INSTRUCT IONS PROVIDED 07/21 completed stopped per pt Not Available Not Available Not Available mupirocin 2 % topical ointment Apply 1 a small amount to affected area twice a day as needed 2021 active Not Available Not Available Not Avai lable Seroquel 100 mg tablet 1 tab QHS 12/01 completed Not Available Not Available Not Available lorazepam 1 mg tablet TAKE 2 TABLETS BY MOUTH IN THE MORNING AND 1 TABLET AT BEDTIME 06/13 completed Not Available Not Available Not Available azelastin e 137 mcg (0.1 %) nasal spray USE 2 SPRAYS IN EACH NOSTRIL ONCE DAILY NEEDED FOR RHINITIS 06/13 completed Not Available Not Available Not Available Ecotrin 325 mg tablet,en teric coated 1 tab twice daily 03/25 completed Not Available Not Available Not Available ibuprofen 600 mg tablet Take 1 tablet by mouth three times a day as needed 04/15 completed Not Available Not Available Not Available polyethyl maye glycol 3350 17 gram/dose oral powder TAKE PER COLONOSC OPY INSTRUCT IONS PROVIDED 11/13 completed Not Available Not Available Not Available Premarin 0.625 mg tablet 1 TAB daily 2013 active Not Available Not Available Not Avai lable Ativan 0.5 mg tablet Take 1 tablet by mouth as needed 2020 active [facility] Not Available Not Available Not Avai lable ketorolac 60 mg/2 mL intramusc ular solution Inject 2 mL by intramus cular route. 11/13 completed Not Available Not Available Not Available hydroxyzi ne HCl 10 mg tablet TAKE ONE TABLET BY MOUTH TWICE A DAY NEEDED FOR ANXIETY 03/10 completed Not Available Not Available Not Available fluticaso ne propionat e 50 mcg/actua tion nasal spray,luisito pension 2 spray into both nostrils once a day 2020 active Not Available Not Available Not Avai lable metformin ER 500 mg tablet,ex tended release 24 hr TAKE ONE-HALF TABLET BY MOUTH EVERY EVENING active Not Available Not Available No t Available sertralin e 50 mg tablet Start with 1/2 tab x 1 week then increase to one tab by mouth daily 10/09 completed Not Available Not Available Not Available doxycycli ne hyclate 100 mg tablet Take 1 tab by mouth twice daily x 7 days 08/18 completed Not Available Not Available Not Available Augmentin 500 mg-125 mg tablet Take 1 tablet by mouth twice a day 12/02 completed Not Available Not Available Not Available loratadin e 10 mg tablet Take 1 tab by mouth daily as needed for allergy sxs 12/02 completed Not Available Not Available Not Available Motrin 400 mg tablet 1TAB 1-4 tabs 04/06 completed Not Available Not Available Not Available Seroquel 200 mg tablet 1 qhs 03/25 completed Not Available Not Available Not Available AcipHex 20 mg tablet,de layed release 2 TABS DAILY 05/13 completed Not Available Not Available Not Available Ventolin HFA 90 mcg/actua tion aerosol inhaler INHALE ONE TO TWO PUFFS BY MOUTH EVERY 4 HOURS NEEDED active Not Available Not Available No t Available buspirone 15 mg tablet Take 1 tab by mouth twice daily 09/09 completed Not Available Not Available Not Available Augmentin 500 mg tablet 1 TAB twice daily 07/27 completed Not Available Not Available Not Available Bactrim DS 800 mg-160 mg tablet 1 TAB BID 04/13 completed Not Available Not Available Not Available Vitamin D 50,000 unit capsule 1TAB Two times per week 12/24 completed Not Available Not Available Not Available nebulizer and compresso r AND TUBING SUPPLIES 2021 active Not Available Not Available Not Avai lable Celebrex 400 mg capsule Take 1 cap by mouth daily 07/07 completed Not Available Not Available Not Available divalproe x ER 250 mg tablet,ex tended release 24 hr TAKE ONE TABLET BY MOUTH EVERY DAY 11/13 completed Not Available Not Available Not Available Vitamin D3 25 mcg (1,000 unit) tablet 2 TAB BY MOUTH DAILY 2017 active Not Available Not Available Not Avai lable Fish Oil 120 mg-180 mg capsule active Not Available Not Available Not Available Premarin 0.625 mg/gram vaginal cream APPLY VAGINALL Y ONCE DAILY X 1 WEEK THEN REDUCE TO 2X/WEEK 2016 active Not Available Not Available Not Avai lable Premarin 0.9 mg tablet 1 TAB DAILY - TO REPLACE 0.625MG DOSE 01/21 completed Not Available Not Available Not Available Premarin 0.625 mg tablet Take 1 tab by mouth daily (dosing 2-3x/wee k) 02/18 completed Not Available Not Available Not Available aripipraz ole 5 mg tablet TAKE ONE TABLET BY MOUTH EVERY DAY 11/13 completed Not Available Not Available Not Available Wellbutri n XL 150 mg 24 hr tablet, extended release 2 TAB DAILY IN AM 2014 active RXD BY [facility] Not Available Not Available Not Available Prempro 0.3 mg-1.5 mg tablet 04/27 completed Not Available Not Available Not Available Hearing Aid Batteries As directed 07/30 completed 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 @ 500, 1000, 2000 Not Available Not Available Not Available metformin ER 500 mg tablet,ex tended release 24hr (osmotic) 1 tablet by mouth every evening 02/08 completed Not Available Not Available Not Available Lyrica 50 mg capsule Take 1 cap by mouth at bedtime x 1 week then increase to twice daily 06/22 completed Not Available Not Available Not Available Guaifenes in-Codein e 5ML every six hours 05/31 completed Not Available Not Available Not Available Depakote 08/07 completed [facility] Not Available Not Available Not Available propranol ol Take 20mg PO QD 07/21 completed [facility]- per pt Not Available Not Available Not Available Seroquel 2014 active Not Available Not Available Not Avai lable multivita min 1 tab by mouth daily 08/06 completed Not Available Not Available Not Available Compressi on Stockings MEDIUM COMPRESS ION, THIGH HIGH STOCKING S DX: EDEMA R60.9 2014 active Not Available Not Available Not Avai lable Advair HFA 115 mcg-21 mcg/actua tion aerosol inhaler 2 puff using inhaler twice a day TO REPLACE SYMBICOR T 03/10 completed Not Available Not Available Not Available Xopenex HFA 45 mcg/actua tion aerosol inhaler Inhale 2 puffs by mouth (via spacer) every 6 hours as needed for shortnes s of breath 03/06 completed Not Available Not Available Not Available Seroquel 50 mg tablet 1-2 TABS QHS 08/04 completed Not Available Not Available Not Available acetylcys teine 600 mg capsule TAKE TWO CAPSULES BY MOUTH TWICE A DAY NEEDED 08/13/ 2024 active Not Available Not Available Not Avai lable Vyvanse 30 mg capsule 1 daily 2018 active [facility] Not Available Not Available Not Avai lable budesonid e-formote rol HFA 80 mcg-4.5 mcg/actua tion aerosol inhaler INHALE TWO PUFFS BY MOUTH TWICE A DAY active Not Available Not Available No t Available Vyvanse 50 mg capsule TAKE ONE CAPSULE BY MOUTH EVERY MORNING active Not Available Not Available No t Available Vyvanse 70 mg capsule 06/22 completed [facility] Not Available Not Available Not Available Seroquel XR 200 mg tablet,ex tended release Take one tablet by mouth at bedtime 03/06 completed Not Available Not Available Not Available Vyvanse 20 mg capsule take 1 cap po QD for ADHD 2018 active [facility] Not Available Not Available Not Avai lable Vyvanse 40 mg capsule 1 capsule once a day 2018 active [facility] Not Available Not Available Not Avai lable levomefol ate calcium 15 mg tablet TAKE ONE TABLET BY MOUTH EVERY DAY active Not Available Not Available No t Available Dexilant 60 mg capsule, delayed release 1TAB daily 07/17 completed Not Available Not Available Not Available Latuda 40 mg tablet Take 1 tablet by mouth daily 05/09 completed Gabriela Salas Not Available Not Available Not Available Viibryd 10 mg tablet TAKE ONE TABLET BY MOUTH EVERY DAY WITH FOOD 08/07 completed Not Available Not Available Not Available lutein 20 mg tablet active Not Available Not Available No t Available Vraylar 1.5 mg capsule 1 PO once daily 06/13 completed [facility] Not Available Not Available Not Available Trintelli x 5 mg tablet Take 1 tablet by mouth daily 12/25 completed [facility] Not Available Not Available Not Available turmeric 450 mg-turmer ic root extract 50 mg capsule active Not Available Not Available Not Available Paxlovid 300 mg (150 mg x 2)-100 mg tablets in a dose pack Take 3 tablet by mouth twice a day take one dose pack by mouth twice day per instruct ions 08/11 completed Not Available Not Available Not Available Vitals Date Recorded Body height Oxygen saturation Oxygen saturation in Arterial blood by Pulse oximetry Heart rate Body mass index (BMI) Body weight Systolic blood pressure Diastolic blood pressure Provider Name and Address Organization Details Last Updated DateTime 4 163.5 cm 98 % 98 % 75 /min 36.3 kg/m2 64953.7 7 g 155 mm[Hg] 80 mm[Hg] KINSEY SHARP MA [facility] 4 11:08:27 Date Recorded Body height Body mass index (BMI) Body weight Heart rate Respiratory rate Systolic blood pressure Diastolic blood pressure Provider Name and Address Organization Details Last Updated DateTime 4 163.5 cm 36.4 kg/m2 97583.6 4 g 76 /min 16 /min 142 mm[Hg] 82 mm[Hg] Deb glaser LPN [facility] 4 07:53:07 Date Recorded Body height Body mass index (BMI) Body weight Heart rate Systolic blood pressure Diastolic blood pressure Provider Name and Address Organization Details Last Updated DateTime 4 163.5 cm 35.5 kg/m2 64607.8 1 g 72 /min 130 mm[Hg] 66 mm[Hg] ALEXANDRA PERRY PRE [employer] [facility] 4 08:53:55 Date Recorded Body height Body mass index (BMI) Body weight Oxygen saturation Oxygen saturation in Arterial blood by Pulse oximetry Heart rate Systolic blood pressure Diastolic blood pressure Provider Name and Address Organization Details Last Updated DateTime 4 163.5 cm 34.6 kg/m2 92741.1 3 g 99 % 99 % 78.01 /min 134 mm[Hg] 74 mm[Hg] Jere Gan MA [facility] 4 10:12:49 Social History Question Answer Notes LastModified by Organizat ion Details LastModified Time Tobacco Smoking Status Never Smoker KINSEY SHARP MA [facility], [facility] 06/13/2023 11:11:54 What Was The Date Of Your Most Recent Tobacco Screening? 06/13/2023 Information not available 06/13/2023 Do You Or Have You Ever Used Any Other Forms Of Tobacco Or Nicotine? No Information not available 06/13/2023 Sex: Female Functional Status None recorded. Mental Status None recorded. Family History Relationship Description Onset Age of this Age Resolved Age Notes Father Family history of Hypertension Father Family history of alcoholism Father Family history of he art failure Father Family history of diabetes mellitus type 1 Daughter Family history of Arthritis RHEUMATOID Mother Family history of Arthritis Mother No family history of respiratory disease Mother Family history of he art failure Notes:*Problem: Sisters x 3: Asthma x 1, ?heart problems x 1 Brothers x 4 - x 1 due liver CA SONS x 2 - L&W without known medical issues DAUGHTERS x 3 Medical History No medical history recorded. Gynecological HistoryNo gynecological history recorded. Obstetrics History GPAL:G 0 P 0 0 0 0 Immunizations Vaccine Type Date Status Provider Name and Address Organization Details Recorded Time Tdap 08/08/[address], [place], [address], [facility] 08/08/2023 10:01:04 Tdap 01/10/2014 completed Not Available [facility] 05:01:19 Tdap 01/29/2010 completed Not Available [facility] 05:01:19 Td(adult) unspecified formulation 07/27/2000 completed Not Available [facility] 04/07/2023 05:01:19 Influenza, split virus, trivalent, PF 01/11/2016 completed Not Available [facility] 2022 05:01:19 Influenza, split virus, trivalent, preservative 01/18/2018 completed Not Available [facility] 04/07/2023 05:01:20 Influenza, split virus, quadrivalent, PF 02/26/2021 completed Not Available [facility] 04/07/2023 05:01:20 Influenza, split virus, quadrivalent, PF 03/01/2022 completed Not Available [facility] 04/07/2023 05:01:20 zoster recombinant 11/01/2017 completed Not Available [facility] 04/07/2023 05:01:20 zoster recombinant 01/05/2018 completed Not Available [facility] 04/07/2023 05:01:20 zoster recombinant 04/24/2018 completed Not Available [facility] 04/07/2023 05:01:20 COVID-19, mRNA, LNP-S, PF, 100 mcg/0.5mL dose or 50 mcg/0.25mL dose 08/22/2020 completed Not Available [facility] 04/07/2023 05:01:21 COVID-19, mRNA, LNP-S, PF, 100 mcg/0.5mL dose or 50 mcg/0.25mL dose 09/19/2020 completed Not Available [facility] 04/07/2023 05:01:21 COVID-19, mRNA, LNP-S, PF, 100 mcg/0.5mL dose or 50 mcg/0.25mL dose 03/30/2021 completed Not Available [facility] 04/07/2023 05:01:21 SARS-COV-2 (COVID-19) vaccine, UNSPECIFIED 10/27/2021 completed Not Available [facility] 04/07/2023 05:01:21 COVID-19, mRNA, LNP-S, bivalent, PF, 30 mcg/0.3 mL dose 03/01/2022 completed Not Available [facility] 04/07/20 05:01:21 pneumococcal polysaccharide PPV23 01/27/2005 completed Not Available [facility] 2022 05:01:21 pneumococcal polysaccharide PPV23 03/29/2011 completed Not Available [facility] 2022 05:01:22 influenza, unspecified formulation 12/29/2014 completed Not Available [facility] 04/07/2023 05:01:22 influenza, unspecified formulation 01/13/2017 completed Not Available [facility] 04/07/2023 05:01:22 influenza, unspecified formulation 01/27/2016 completed Not Available [facility] 04/07/2023 05:01:22 influenza, unspecified formulation 01/28/2020 completed Not Available [facility] 04/07/2023 05:01:22 Influenza, split virus, quadrivalent, PF 03/10/2023 completed Not Available [facility] 06/09/2023 05:31:10 COVID-19, mRNA, LNP-S, PF, kurt-sucrose, 30 mcg/0.3 mL 03/10/2023 completed Not Available [facility] 06/09/2023 05:31:11 Past Encounters Encounter ID Performer Location Encounter Start Date Encounter Closed Date Diagnosis/Indication Diagnosis SNOMED-CT Code [id number] MANDY FARRIS PA-C [facility] [address] [place] [address] 08/08/2023 07:45:14 08/08/2023 08:55:42 Essential hypertension 27443399 Prediabetes 295452779 Chronic low back pain 27 [id number] 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 46816255 Active or passive immunization [id number] Tash Jaime [facility] [address] [place] [address] 11/14/2023 08:34:34 11/14/2023 09:57:12 Chronic low back pain 289037324 Prediabetes 915561452 Seasonal a llergic rhinitis 508338978 Health Concerns Section Related Observation LastModified by Organization Detai ls LastModified Time None Recorded Concern Status LastModified by Organization Details LastModified Time None Recorded Advance Directives Directive None Recorded Payers Encounter Date Sequence Insurance Name Policy Number Policy Roberts Covered Member ID Roberts Member ID Guarantor Name 08/08/2023 1 [facility] (MEDICAID) Shobha Ramírez [id number] Shobha Ramírez Notes Date Note Type Note Provider Name and Address Organization Details Recorded Time 08/08/2023 text/html HPI Notes: 63y/o female presenting for HTN, preDM, anxiety/mood disorder, and chronic pain. [address], [place], [address], [facility]. 08/08/2023 10:09:41 OBGyn Episode No OBEpisode recorded.
--- OUTSIDE RECORDS SUMMARY | 2024-01-10 02:02 | XMS_ITS | Encounter Summary ---
Author Organization [facility] Address [facility] [place] [address] Care Team Providers Care Telegraphic Instrument Supervisor Name Role Phone Shashi Verma Primary Care Provider [phone] Reason for Visit * Diagnostic Test (Routine) - Closed Specialty Diagnoses / Procedures Referred By Contac t Referred To Contact Radiology Diagnoses Pelvic floor dysfunction Procedures MRI Pelvis Soft Tissue (Gi Gu Boarding House Manager)WO Contrast MRI Pelvis Soft Tissue (GI GAS WELDER)W Contrast Yossi Morales APRN [facility] [place] [address] [place] [address] Referral ID Status Reason Start Date Expiration Date V isits Requested Visits Authorized [id number] Closed Specialty Service Requested 03/28/2018 06/26/2018 2 2 Encounter Details Date Type Department Care Team (Latest Contact Info) Description 04/09/2018 10:10 AM EST - 04/09/2018 11:59 PM [facility] [place] [address] Yossi Morales [facility] [place] [address] Discharge Disposition: Home Social History Tobacco Use Types Packs/Day Years Used Date Smoking Tobacco: Never Smokeless Tobacco: Never Alcohol Use Standard Drinks/Week Comments No 0 (1 standard drink = 0.6 oz pur e alcohol) [id number] Sex and Gender Information Value Date Recorded [...] 09/01/2015 08/01/2019 documented as of this encounter Plan of Treatment Not on file documented as of this encounter Procedures Procedure Name Priority Date/Time Associated Diagnosis Comments MRI PELVIS SOFT TISSUE (GI GAS WELDER) WO CONTRAST Routine 04/09/2018 12:49 PM EST Pelvic floor dysfunction documented in this encounter Results * MRI Pelvis Soft Tissue (Gi Gu Boarding House Manager)WO Contrast (04/09/2018 12:49 PM EST) Anatomical Region [...] EST EXAMINATION: MRI PELVIS SOFT TISSUE (GI GAS WELDER) WO CONTRAST CLINICAL HISTORY: with defecography, pelvic [...] 04/09/2018 EXAMINATION: MRI PELVIS SOFT TISSUE (GI GAS WELDER) WO CONTRAST CLINICAL HISTORY: with defecography, pelvic [...] ORDERABLES documented in this encounter Visit Diagnoses Not on filedocumented in this encounter Care Teams Telegraphic Instrument Supervisor Relationship Specialty Start Date End Date Shashi Verma PA [address] [place] [address] PCP - General Family Medicine 04/06/16 01/14/20 documented as of this encounter
--- OUTSIDE RECORDS SUMMARY | 2024-01-10 02:02 | XMS_ITS | Encounter Summary ---
Author Organization [facility] Address [address] [place] [address] Care Team Providers Care Social Economist Name Role Phone Unknown, Provider Primary Care Provider [phone] Encounter Details Date Type Department Care Team (Late st Contact Info) Description 10/05/2005 Results Only [facility] - Maple conversion [address] [place] [address] Torri Castro MD [address] [place] [address] [place] [address] Social History Tobacco Use Types Packs/Day Years Used Date Smoking Tobacco: Never Assessed Sex and Gender Information Value Date Recorded Sex Assigned at Not on file Gender Identity Not on file Sexual Orientation Not on file documented as of this encounter Plan of Treatment Not on file documented as of this encounter Procedures Procedure Name Priority Date/Time Associated Diagnosis Comments CYTOPATHOLOGY Routine 10/05/2005 0:00 EDT documented in this encounter Results * CYTOPATHOLOGY (10/05/2005 0:00 EDT) Pathology Report: CYTOPATHOLOGY REPORT Reports generated via electronic interface contain original data; however they are lacking the format of the original report. Caution should be taken when reading/interpreti ng unformatted reports. Name: ? JANICE DÍAZ ? Accession #: ? [id number] : ? 1960 (Age: 45) ??F ?Collect Date: ? 10/05/2005 Location: ? [facility] ? Receive Date: ? 10/07/2005 Provider: ?TORRI CASTRO MD Copy to: ? Specimen/Source: ?ThinPrep Pap Test, Cervix/Endocervix, processed on [employer] ThinPrep Imaging System, with manual evaluation Last Menstrual Period: ? 09/13/05 Hormonal/Contracep tive Status: ? Control Pills Other: ? HPVA - HPV testing requested if ASC-US on the current ThinPrep Pap test. ? SPECIMEN ADEQUACY ? Satisfactory for Evaluation - transformation zone component present GENERAL CATEGORIZATION ? Negative for Intraepithelial Lesion or Malignancy INTERPRETATION ? Fungal organisms present morphologically consistent with Usha species. ? Document reviewed and electronically signed by: ? TAY Reyes(ASCP) ? Report Date: ??10/10/2005 15:01 End of Report [facility] 10/05/2005 10/07/2005 Torri Castro MD PATHOLOGY ORDERABLES Performing Organization Address City/State/[facility] Co de Phone Number [facility] [address] [place] [address] documented in this encounter Visit Diagnoses Not on filedocumented in this encounter Care Teams Social Economist Relationship Specialty Start Date End Date Unknown, Provider, PCP - General 01/21/09 12/26/10 documented as of this encounter
--- OUTSIDE RECORDS SUMMARY | 2024-01-10 02:02 | XMS_ITS | Encounter Summary ---
Author Organization [facility] Address [address] [place] [address] Care Team Providers Care Golf Course Superintendent Name Role Phone Gina Morales MD Primary Care Provider [phone] Encounter Details Date Type Department Care Team (Late st Contact Info) Description 05/15/2019 Lab Requisition [facility] Pathology & Laboratory Medicine - [address] [address] Unknown, Provider, Social History Tobacco Use Types Packs/Day Years Used Date Smoking Tobacco: Never Assessed Sex and Gender Information Value Date Recorded Sex Assigned at Not on file Gender Identity Not on file Sexual Orientation Not on file documented as of this encounter Plan of Treatment Not on file documented as of this encounter Procedures Procedure Name Priority Date/Time Associated Diagnosis Comments HEPATITIS C AB W REFLEX TO HCV RNA BY PCR Routine 05/14/2019 12:10 EST documented in this encounter Results * HEPATITIS C AB W REFLEX TO HCV RNA BY PCR (05/14/2019 12:10 EST) Hep C Antibody Negative Negative 05/16/2019 10:44 EST [facility] Blood VENOUS BLOOD / Unknown 05/14/2019 12:10 EST 05/15/2019 15:51 EST Provider Unknown CHEMISTRY & BLOOD GA S ORDERABLES [facility] [address] [place] [address] documented in this encounter Visit Diagnoses Not on filedocumented in this encounter Care Teams Golf Course Superintendent Relationship Specialty Start Date End Date Gina Morales MD [address] [place] [address] PCP - General 04/24/13 documented as of this encounter
--- OUTSIDE RECORDS SUMMARY | 2024-01-10 02:02 | XMS_ITS | Encounter Summary ---
Author Organization [facility] Address [address] [place] [address] Care Team Providers Care Other Spatial Scientist Name Role Phone Gina Morales MD Primary Care Provider [phone] Encounter Details Date Type Department Care Team (Late st Contact Info) Description 02/16/2017 Results Only [facility] [phone] Joana Vuong PA-C [address] [place] [id number] Social History Tobacco Use Types Packs/Day Years Used Date Smoking Tobacco: Never Assessed Sex and Gender Information Value Date Recorded Sex Assigned at Not on file Gender Identity Not on file Sexual Orientation Not on file documented as of this encounter Plan of Treatment Not on file documented as of this encounter Procedures Procedure Name Priority Date/Time Associated Diagnosis Comments SURGICAL PATHOLOGY Routine 02/16/2017 16 :08 EDT documented in this encounter Results * SURGICAL PATHOLOGY (02/16/2017 16:08 EDT) Pathology Report: SURGICAL PATHOLOGY REPORT Reports generated via electronic interface contain original data; however they are lacking the format of the original report. Caution should be taken when reading/interpret ing unformatted reports. Name: ? JANICE DÍAZ ? Accession #: ? [id number] ? : ? 1960 (Age: 57) ??F ? Collect Date: ? 02/16/2017 ? Location: ? [facility] ? Receive Date: ? 02/17/2017 ? Provider: JOANA VUONG PAC Copy to: ? Final Pathologic Diagnosis: A. ??SKIN OF FOREARM, RIGHT ANTERIOR MEDIAL, PUNCH BIOPSY: - Melanocytic nevus, compound congenital type. - Lesion extends to peripheral edge of biopsy specimen. - Lesion measures approximately 0.2 mm to the biopsy base. B. ??SKIN OF FOREARM, RIGHT ANTERIOR LATERAL, PUNCH BIOPSY: - Melanocytic nevus, junctional lentiginous type, with unusual architectural features and mild cytologic atypia. - Lesion does not extend to biopsy edges in the plane of sections examined. - Lesion measures approximately 0.8 mm to the nearest peripheral edge. - Lesion measures approximately 1.8 mm to the biopsy base. Document reviewed and electronically signed by: ARASELI LEE MD Report ??Date: 02/20/2017 14:22 By the signature above, the attending physician certifies that he/she has personally conducted a gross and/or microscopic examination of the described specimens and rendered or confirmed the above diagnosis. Specimen(s) Received: A. ??Right anterior medial forearm, 8.0 mm punch bx B. ??Right anterior lateral forearm, 4.0 mm bx Clinical History: A. 5.0 mm dark skin colored nevus, irregular borders, flat, recent increase in size; B. 2.0 mm well demarcated, dark skin colored nevus recently becoming darker Gross Description: A. ?Received in formalin labelled with proper patient identification (initials P, C) and R arm anteromedial is a punch biopsy of briones-pink skin (0.8 cm in diameter and 0.2 cm in thickness). There is a briones-purple macule (0.6 x 0.4 cm). Bisected and submitted in A1. B. ?Received in formalin labelled with proper patient identification (initials P, C) and R arm anterolateral is a punch biopsy of briones-pink skin (0.4 cm in diameter and 0.2 cm in thickness). There is a central briones-purple macule (0.2 x 0.1 cm). Submitted intact in B1. Dr. Spain 02/18/2017 7:11 AM End of Report [facility] 02/16/2017 16:0 8 EDT 02/17/2017 16:08 EDT Joana Vuong PA-C PATHOLOGY ORDERAB LES [facility] [address] [place] [address] documented in this encounter Visit Diagnoses Not on filedocumented in this encounter Care Teams Other Spatial Scientist Relationship Specialty Start Date End Date Gina Morales MD [address] [place] [address] PCP - General 04/24/13 documented as of this encounter
--- OUTSIDE RECORDS SUMMARY | 2024-01-10 02:02 | XMS_ITS | Clinical Summary ---
Author Organization [facility] Address [address] [place] [address] Care Team Providers Care Regional [employer] Truck Driver Name Role Phone Gina Morales MD Primary Care Provider Social History Tobacco Use Types Packs/Day Years Used Date Smoking Tobacco: Never Assessed Interpersonal Safety Answer Date Record ed Physically Hurt Never 12/29/2019 Verbally Threaten Not on file 12/29/2019 Sex and Gender Information Value Date Recorded Sex Assigned at Not on file Gender Identity Not on file Sexual Orientation Not on file Plan of Treatment Health Maintenance Due Date Last Done Comments RSV Immunization ( o r 60+ Years) (1 - 1-dose 60+ series) 2022 COVID-19 Vaccine (2022-24 season) 2023 Hepatitis C Screen Completed 05/14/2019 Procedures Procedure Name Priority Date/Time Associated Diagnosis Comments HEPATITIS C AB W REFLEX TO HCV RNA BY PCR Routine 05/14/2019 12:10 EST from Last 3 Months or Most Recently Relevant to Health Maintenance Results * HEPATITIS C AB W REFLEX TO HCV RNA BY PCR (05/14/2019 12:10 EST) Hep C Antibody Negative Negative 05/16/2019 10:44 EST [facility] Blood VENOUS BLOOD / Unknown 05/14/2019 12:10 EST 05/15/2019 15:51 EST Provider Unknown CHEMISTRY & BLOOD GA S ORDERABLES [facility] [address] [place] [address] from Last 3 Months or Most Recently Relevant to Health Maintenance Care Teams Regional Company Truck Driver Relationship Specialty Start Date End Date Gina Morales MD [address] [place], [place] [address] PCP - General 04/24/13
--- OUTSIDE RECORDS SUMMARY | 2024-01-10 02:02 | XMS_ITS | Encounter Summary ---
Author Organization [facility] [place] [address] Care Team Providers Care Camera Operator Name Role Phone Shashi Verma Primary Care Provider [phone] Reason for Visit * Reason Onset Date Comments Medication Refill 12/05/2018 Encounter Details Date Type Department Care Team (Late st Contact Info) Description 12/05/2018 [place] [id number] Cici Tanner CMA GASTROENTEROLOGY DEPT Medication Refill Social History Tobacco Use Types Packs/Day Years [...] encounter Miscellaneous Notes * Telephone Encounter - Sravani Coon CCMA - 12/06/2018 2:16 PM EDT Called and spoke with patient to inform her that she would have to go through her PCP for refills of her medications. She seemed to understand. * Telephone Encounter - Cici Tanner CMA - 12/05/2018 10:11 AM EDT The patient left a message asking for a refill of her anti-acid medication and the two laxative medication. I notice that one of the secretaries had mailed the patient a letter asking for her to makea follow up appointment with the provider. Called the patient to have her call me back to have her follow up on the letter, and whether she wants to continue care with the provider or have her PCP take over any future scripts. documented in this encounter Plan of Treatment Not on file documented as of this encounter Visit Diagnoses Not on filedocumented in this encounter Care Teams Camera Operator Relationship Specialty Start Date End Date Shashi Verma PA [address] [place] [address] PCP - General Family Medicine 04/06/16 01/14/20 documented as of this encounter
--- OUTSIDE RECORDS SUMMARY | 2024-01-10 02:02 | XMS_ITS | Encounter Summary ---
Author Organization [facility] Address [address] [place] [address] Care Team Providers Care Oyster Culturist Name Role Phone Unknown, Provider Primary Care Provider [phone] Encounter Details Date Type Department Care Team (Late st Contact Info) Description 11/07/2006 Results Only [facility] - Maple conversion [address] [place] [address] Torri Castro MD [address] [place] [address] [place] [address] Social History Tobacco Use Types Packs/Day Years Used Date Smoking Tobacco: Never Assessed Sex and Gender Information Value Date Recorded Sex Assigned at Not on file Gender Identity Not on file Sexual Orientation Not on file documented as of this encounter Plan of Treatment Not on file documented as of this encounter Procedures Procedure Name Priority Date/Time Associated Diagnosis Comments CYTOPATHOLOGY Routine 11/07/2006 0:00 EDT documented in this encounter Results * CYTOPATHOLOGY (11/07/2006 0:00 EDT) Pathology Report: CYTOPATHOLOGY REPORT Reports generated via electronic interface contain original data; however they are lacking the format of the original report. Caution should be taken when reading/interpreti ng unformatted reports. Name: ? JANICE DÍAZ ? Accession #: ? [id number] : ? 1960 (Age: 46) ??F ?Collect Date: ? 11/07/2006 Location: ? [facility] ? Receive Date: ? 11/08/2006 Provider: ?TORRI CASTRO MD Copy to: ? Specimen/Source: ?ThinPrep Pap Test, Cervix/Endocervix, processed on [employer] ThinPrep Imaging System, with manual evaluation Last Menstrual Period: ? 10/12/06 Hormonal/Contracep tive Status: ? Control Pills Other: ? HPVA - HPV testing requested if ASC-US on the current ThinPrep Pap test. ? SPECIMEN ADEQUACY ? Satisfactory for Evaluation - transformation zone component present GENERAL CATEGORIZATION ? Negative for Intraepithelial Lesion or Malignancy ? Document reviewed and electronically signed by: ? Rosio Baldwin, TAY(ASCP)(IAC) ? Report Date: ??11/13/2006 11:50 End of Report [facility] 11/07/2006 11/08/2006 Torri Castro MD PATHOLOGY ORDERABLES Performing Organization Address City/State/[facility] Co de Phone Number [facility] [address] [place] [address] documented in this encounter Visit Diagnoses Not on filedocumented in this encounter Care Teams Oyster Culturist Relationship Specialty Start Date End Date Unknown, Provider, PCP - General 01/21/09 12/26/10 documented as of this encounter
--- OUTSIDE RECORDS SUMMARY | 2024-01-10 02:02 | XMS_ITS | Encounter Summary ---
Author Organization [facility] Address [address] [place] [address] Care Team Providers Care Cartographic Aide Name Role Phone Gina Morales MD Primary Care Provider [phone] Encounter Details Date Type Department Care Team (Late st Contact Info) Description 07/13/2021 Lab Requisition [facility] Pathology & Laboratory Medicine - [address] [address] Outr Resulting Lab, Provider Social History Tobacco [...] Procedure Name Priority Date/Time Associated Diagnosis Comments ZZCOVID-19 TEST [facility] PCR Today 07/13/2021 11:00 EST COVID-19 TESTING Routine 07/13/2021 11:0 0 EST documented in this encounter Results * COVID-19 TEST [facility] PCR (07/13/2021 11:00 EST) Swab 07/13/2021 11:0 0 EST 07/14/2021 16:06 EST Provider Outr Resulting Lab MICROBIOLOGY - GENERAL ORDERABLES [facility] [address] [place] [address] * COVID-19 TESTING (07/13/2021 11:00 EST) COVID-19 rt-PCR Result Negative Negative 07/15/2021 14:18 EST [facility] Comment: This test has not been FDA cleared or approved. This test has been authorized by FDA under an EUA for use by authorized laboratories. This test has been authorized only for detection of nucleic acid from 2019-nCoV, not for any other viruses or pathogens. This test is only authorized for the duration of the declaration that circumstances exist justifying the authorization of emergency use of in vitro diagnostic tests for detection and/or diagnosis of 2019-nCoV under section 564(b)(1) of Act, 21 U.S.C ?? 360bbb-3(b) (1), unless the authorization is terminated or revoked sooner. Negative results do not preclude 2019-nCoV infection and should not be used as the sole basis for treatment or other patient management decisions. Negative results must be combined with clinical observations, patient history, and epidemiological information. Testing was performed using the amelie SARS-CoV-2 assay ([employer] on the Amelie 6800 System Performing Lab Amelie 6800 [facility] Lab 07/15/2021 14:18 EST [facility] Swab 07/13/2021 11:0 0 EST 07/14/2021 16:06 EST Provider Outr Resulting Lab MICROBIOLOGY - GENERAL ORDERABLES [facility] [address] [place] [address] documented in this encounter Visit Diagnoses Not on filedocumented in this encounter Care Teams Cartographic Aide Relationship Specialty Start Date End Date Gina Morales MD [address] [place] [address] PCP - General 04/24/13 documented as of this encounter
--- OUTSIDE RECORDS SUMMARY | 2024-01-10 02:02 | XMS_ITS | Encounter Summary ---
Author Organization [facility] Address [address] [place] [address] Care Team Providers Care Orthopedics Teacher Name Role Phone Gina Morales MD Primary Care Provider [phone] Encounter Details Date Type Department Care Team (Latest Contact Info) Description 02/16/2017 11:38 EDT - 02/16/2017 23:59 EDT Hospital Encounter [address] [address] Unknown, Provider, Discharge Disposition: Auto Discharge Social History Tobacco Use Types Packs/Day Years Used Date Smoking Tobacco: Never Assessed Sex and Gender Information Value Date Recorded Sex Assigned at Not on file Gender Identity Not on file Sexual Orientation Not on file documented as of this encounter Discharge Disposition Disposition Code Departure Means Destination Auto Discharge Home documented in this encounter Plan of Treatment Not on file documented as of this encounter Visit Diagnoses Not on filedocumented in this encounter Care Teams Orthopedics Teacher Relationship Specialty Start Date End Date Gina Morales MD [address] [place] [address] PCP - General 04/24/13 documented as of this encounter
--- OUTSIDE RECORDS SUMMARY | 2024-01-10 02:02 | XMS_ITS | Encounter Summary ---
Author Organization [facility] Address [address] [place] [address] Care Team Providers Care Measurement Coordinator Name Role Phone Gina Morales MD Primary Care Provider [phone] Encounter Details Date Type Department Care Team (Late st Contact Info) Description 05/15/2019 Lab Requisition [facility] Pathology & Laboratory Medicine - [address] [address] Unknown, Provider, Social History Tobacco Use Types Packs/Day Years Used Date Smoking Tobacco: Never Assessed Sex and Gender Information Value Date Recorded Sex Assigned at Not on file Gender Identity Not on file Sexual Orientation Not on file documented as of this encounter Plan of Treatment Not on file documented as of this encounter Procedures Procedure Name Priority Date/Time Associated Diagnosis Comments SYPHILIS SEROLOGY Routine 05/14/2019 12: 10 EST documented in this encounter Results * SYPHILIS SEROLOGY (05/14/2019 12:10 EST) Syphilis Serology Negative Negative 05/16/2019 11:34 EST [facility] Blood VENOUS BLOOD / Unknown 05/14/2019 12:10 EST 05/15/2019 15:51 EST Provider Unknown IMMUNOLOGY AND SEROL OGRichy ORDERABLES [facility] [address] [place] [address] documented in this encounter Visit Diagnoses Not on filedocumented in this encounter Care Teams Measurement Coordinator Relationship Specialty Start Date End Date Gina Morales MD [address] [place] [address] PCP - General 04/24/13 documented as of this encounter
--- OUTSIDE RECORDS SUMMARY | 2024-01-10 02:02 | XMS_ITS | Referral Summary ---
Author Organization [facility] Address [address] [place] [address] Care Team Providers Care Jig And Fixture Repairer Name Role Phone Gina Morales MD Primary Care Provider [phone] Social History Tobacco Use Types Packs/Day Years Used Date Smoking Tobacco: Never Assessed Interpersonal Safety Answer Date Record ed Physically Hurt Never 12/29/2019 Verbally Threaten Not on file 12/29/2019 Sex and Gender Information Value Date Recorded Sex Assigned at Not on file Gender Identity Not on file Sexual Orientation Not on file Plan of Treatment Not on file Procedures Procedure Name Priority Date/Time Associated Diagnosis Comments HEPATITIS C AB W REFLEX TO HCV RNA BY PCR Routine 05/14/2019 12:10 EST from Last 3 Months or Most Recently Relevant to Health Maintenance Results * HEPATITIS C AB W REFLEX TO HCV RNA BY PCR (05/14/2019 12:10 EST) Hep C Antibody Negative Negative 05/16/2019 10:44 EST [facility] Blood VENOUS BLOOD / Unknown 05/14/2019 12:10 EST 05/15/2019 15:51 EST Provider Unknown CHEMISTRY & BLOOD GA S ORDERABLES [facility] [address] [place] [address] from Last 3 Months or Most Recently Relevant to Health Maintenance Care Teams Jig And Fixture Repairer Relationship Specialty Start Date End Date Gina Morales MD [address] [place] [address] PCP - General 04/24/13
--- OUTSIDE RECORDS SUMMARY | 2024-01-10 02:02 | XMS_ITS | Encounter Summary ---
Author Organization [facility] [place] [address] Care Team Providers Care Operations Support Manager Name Role Phone Shashi Verma Primary Care Provider [phone] Encounter Details Date Type Department Care Team (Late st Contact Info) Description 05/15/2019 Telephone [place] [id number] Peace García Social History Tobacco Use Types Packs/Day Years [...] encounter Miscellaneous Notes * Telephone Encounter - Peace García - 05/17/2019 8:35 AM EST Left third message for patient to contact the office to schedule a f/up visit with Tracia in September. Sent letter. * Telephone Encounter - Peace García - 05/16/2019 9:46 AM EST Left second message for patient to contact the office to schedule a f/up visit with Tracia in September. * Telephone Encounter - Peace García - 05/15/2019 9:38 AM EST Left message for patient to contact the office to schedule a f/up visit with Yossi in September. documented in this encounter Plan of Treatment Not on file documented as of this encounter Visit Diagnoses Not on filedocumented in this encounter Care Teams Operations Support Manager Relationship Specialty Start Date End Date Shashi Verma PA [address] [place] [address] PCP - General Family Medicine 04/06/16 01/14/20 documented as of this encounter
--- OUTSIDE RECORDS SUMMARY | 2024-01-10 02:02 | XMS_ITS | Encounter Summary ---
Author Organization [facility] Address [address] [place] [address] Care Team Providers Care Instructor Industrial Design Name Role Phone Unknown, Provider Primary Care Provider Encounter Details Date Type Department Care Team (Late st Contact Info) Description 12/23/2010 Results Only [facility] Services - [facility] ([facility] [address] [place], [place] [address] [place] [address] [place] [address],[address] [place] [address] Social History Tobacco Use Types Packs/Day Years Used Date Smoking Tobacco: Never Assessed Sex and Gender Information Value Date Recorded Sex Assigned at Not on file Gender Identity Not on file Sexual Orientation Not on file documented as of this encounter Plan of Treatment Not on file documented as of this encounter Procedures Procedure Name Priority Date/Time Associated Diagnosis Comments SURGICAL PATHOLOGY Routine 12/23/2010 0:00 EDT documented in this encounter Results * SURGICAL PATHOLOGY (12/23/2010 0:00 EDT) Pathology Report: SURGICAL PATHOLOGY REPORT ? Reports generated via electronic interface contain original data; ? however they are lacking the format of the original report. ? Caution should be taken when reading/interpreti ng unformatted reports. ? Name: ? ARJUN, JANICE M ? Accession #: ? [id number] ? : ? 1960 (Age: 50) ??F ? Collect Date: ? 12/23/2010 ? Location: ? [facility] ? Receive Date: ? 12/24/2010 ? Provider: MCKAYLA VALDOVINOS MD ? Copy to: DEREK READY MD ? Final Pathologic Diagnosis: ? Endometrium, biopsy: ? - Fragments of inactive endometrium with tubal metaplasia. ? Document reviewed and electronically signed by: ? CRESENCIO BHAKTA MD ? Report ??Date: 12/27/2010 13:17 ? By the signature above, the attending physician certifies that he/she has ? personally conducted a gross and/or microscopic examination of the described ? specimens and rendered or confirmed the above diagnosis. ? Specimen(s) Received: ? Endometrial biopsy ? Clinical History: ? Postmenopausal bleeding ? Gross Description: ? Received in formalin labelled Arjun, Janice and endometrium is a 2.0 x 1.5 x 0.2 cm aggregate of briones-red tissue fragments admixed with mucus. ??The ? specimen is filtered and entirely submitted in a single cassette. ??(L. ? Vega)/ljn ? End of Report ? [facility] 12/23/2010 12/24/2010 9:1 8 EDT Mckayla Valdovinos MD PATHOLOGY ORDERABLES Performing Organization Address City/State/[facility] Co de Phone Number [facility] [address] [place] [address] documented in this encounter Visit Diagnoses Not on filedocumented in this encounter Care Teams Instructor Industrial Design Relationship Specialty Start Date End Date Unknown, Provider, PCP - General 01/21/09 12/26/10 documented as of this encounter
--- OUTSIDE RECORDS SUMMARY | 2024-01-10 02:02 | XMS_ITS | Encounter Summary ---
Author Organization [facility] Address [address] [place] [address] Care Team Providers Care Vocational Teacher Name Role Phone Gina Morales MD Primary Care Provider [phone] Encounter Details Date Type Department Care Team (Late st Contact Info) Description 05/15/2019 Lab Requisition [facility] Pathology & Laboratory Medicine - [facility] [address] [place] [address] Unknown, Provider, Social History Tobacco Use Types Packs/Day Years Used Date Smoking Tobacco: Never Assessed Sex and Gender Information Value Date Recorded Sex Assigned at Not on file Gender Identity Not on file Sexual Orientation Not on file documented as of this encounter Plan of Treatment Not on file documented as of this encounter Procedures Procedure Name Priority Date/Time Associated Diagnosis Comments HIV 1/2 ANTIGEN AND ANTIBODY, 4TH GENERATION Routine 05/14/2019 12:10 EST documented in this encounter Results * HIV 1/2 ANTIGEN AND ANTIBODY, 4TH GENERATION (05/14/2019 12:10 EST) HIV 1 and 2 Antibody/p24 Antigen, 4th Generation Negative Negative 05/16/2019 13:32 EST [facility] Comment: If acute HIV-1 infection is suspected in a high risk ??patient, submit plasma specimen for HIV-1 RNA quantitation test. Fourth Generation assay performed on the [employer]. Blood VENOUS BLOOD / Unknown 05/14/2019 12:10 EST 05/15/2019 15:51 EST Provider Unknown IMMUNOLOGY AND SEROL CHRISTOPHER ORDERABLES [facility] [address] [place] [address] documented in this encounter Visit Diagnoses Not on filedocumented in this encounter Care Teams Vocational Teacher Relationship Specialty Start Date End Date Gina Morales MD [address] [place] [address] PCP - General 04/24/13 documented as of this encounter
--- OUTSIDE RECORDS SUMMARY | 2024-01-10 02:02 | XMS_ITS | Encounter Summary ---
Author Organization [facility] Address [address] [place] [address] Care Team Providers Care Drawer Liner Name Role Phone Unknown, Provider Primary Care Provider [phone] Encounter Details Date Type Department Care Team (Late st Contact Info) Description 10/01/2003 Results Only [facility] [address] [place] [address] Joseph Tafoya MD [address] [place] [address] Social History Tobacco Use Types Packs/Day Years Used Date Smoking Tobacco: Never Assessed Sex and Gender Information Value Date Recorded Sex Assigned at Not on file Gender Identity Not on file Sexual Orientation Not on file documented as of this encounter Plan of Treatment Not on file documented as of this encounter Procedures Procedure Name Priority Date/Time Associated Diagnosis Comments CYTOPATHOLOGY Routine 10/01/2003 0:00 EDT documented in this encounter Results * CYTOPATHOLOGY (10/01/2003 0:00 EDT) Pathology Report: CYTOPATHOLOGY REPORT Reports generated via electronic interface contain original data; however they are lacking the format of the original report. Caution should be taken when reading/interpreti ng unformatted reports. Name: ? JANICE DÍAZ ? Accession #: ? [id number] : ? 1960 (Age: 43) ??F ?Collect Date: ? 10/01/2003 Location: ? [facility] ? Receive Date: ? 10/02/2003 Provider: ?JOSEPH TAFOYA MD Copy to: ? Specimen/Source: ?ThinPrep Pap Test, Cervix/Endocervix Last Menstrual Period: ? 09/15/03 Hormonal/Contracep tive Status: ? Yes: Orthocept Other: ? HPVA - HPV testing requested if ASC-US on the current ThinPrep Pap test. ? SPECIMEN ADEQUACY ? Satisfactory for Evaluation - transformation zone component present GENERAL CATEGORIZATION ? Negative for Intraepithelial Lesion or Malignancy INTERPRETATION ? Fungal organisms present morphologically consistent with Usha species. ? Document reviewed and electronically signed by: ? TAY Phan(ASCP) ? Report Date: ??10/08/2003 09:28 End of Report [facility] 10/01/2003 10/02/2003 Joseph Tafoya MD PATHOLOGY ORDERABLES Performing Organization Address City/State/[facility] Co de Phone Number [facility] [address] [place] [address] documented in this encounter Visit Diagnoses Not on filedocumented in this encounter Care Teams Drawer Liner Relationship Specialty Start Date End Date Unknown, Provider, PCP - General 01/21/09 12/26/10 documented as of this encounter
--- OUTSIDE RECORDS SUMMARY | 2024-01-10 02:03 | XMS_ITS | Encounter Summary ---
Author Organization [facility] Address [facility] [place] [address] Care Team Providers Care Capacity Planner Name Role Phone Gina Morales MD Primary Care Provider [phone] Encounter Details Date Type Department Care Team (Late st Contact Info) Description 07/02/2015 Orders Only Obstetrics [place] [address] Lela Jaramillo RN Menopause Social History Tobacco Use Types Packs/Day Years Used Date Smoking Tobacco: Never Smokeless Tobacco: Never Alcohol Use Standard Drinks/Week Comments No 0 (1 standard drink = 0.6 oz pur e alcohol) Quit, 2000 Sex and Gender Information Value Date Recorded Sex Assigned at Not on file Gender Identity Not on file Sexual Orientation Not on file documented as of this encounter Progress Notes * Lela Jaramillo, RN - 07/02/2015 8:33 AM EST Pt wants to stop vaginal estrace cream and resume premarin 0.625 mg oral tablets. Okay per . Script called in. documented in this encounter Plan of Treatment Not on file documented as of this encounter Visit Diagnoses Diagnosis Menopause Asymptomatic postmenopausal status (age-related) (natural) documented in this encounter Care Teams Capacity Planner Relationship Specialty Start Date End Date Gina Morales MD [facility] [address] [place] [address] [address] [place] [id number] PCP - General 9/3/14 11/8/16 documented as of this encounter
--- OUTSIDE RECORDS SUMMARY | 2024-01-10 02:03 | XMS_ITS | Encounter Summary ---
Author Organization [facility] Address [facility] [place] [address] Care Team Providers Care Rn Staffing Name Role Phone Shashi Verma Primary Care Provider [phone] Encounter Details Date Type Department Care Team (Late st Contact Info) Description 11/01/2017 10:30 AM EDT Office [place] [address] Yossi Morales APRN [facility] [place] [address] Irritable bowel syndrome with constipation Social History [...] as of this encounter Progress Notes * Yossi Morales RN - 11/01/2017 10:30 AM EDT _26___minutes of this__35__-minute visit were spent in face to face discussion and/or counseling the patient, regarding symptoms and treatment options as detailed below. Pt is here for follow up regarding progress with medical regimen. Pt is taking miralax 1/2 capful qd and colace 100mg qd. She continues to have constipation. Does not have daily urge. Sometimes the stool is hard. Pt self disimpacts. Pt will lean forward to try to empty. Does not feel empty. Abdominal discomfort, gas, bloating. These sx can improve with emptying. Normal colonoscopy in 2012. Low fodmap diet was not helpful. She did find neomycin helpful for gas and bloat. Pt is taking protonix 40mg bid. Seems to be helping the reflux. No dysphagia, odynophagia, vomiting. At times a globus sensation. 2015 normal upper endoscopy. Exam: soft, tender, tympanic, no mass or organomegaly Plan: 1. Gerd: protonix 40mg bid 2. IBS: pericolace 2-4 qhs; 3. Pelvic floor dysfunction: am routine; appropriate positioning; continue with PT recommendations. 4. ?sibo: flagyl 500mg bid x 14 days 5. Gif in 2-3 months documented in this encounter Plan of Treatment Not on file documented as of this encounter Visit Diagnoses Diagnosis Irritable bowel syndrome with constipation Irritable bowel syndrome documented in this encounter Care Teams Rn Staffing Relationship Specialty Start Date End Date Shashi Verma PA [address] [place] [address] PCP - General Family Medicine 04/06/16 01/14/20 documented as of this encounter
--- OUTSIDE RECORDS SUMMARY | 2024-01-10 02:03 | XMS_ITS | Encounter Summary ---
Author Organization [facility] Address [facility] [place] [address] Care Team Providers Care Tank Truck Engine Mechanic Name Role Phone Gina Morales MD Primary Care Provider Encounter Details Date Type Department Care Team (Late st Contact Info) Description 10/25/2011 11:15 AM EDT Follow[place] [id number] Rosio Gonzalez, PT [facility] PHYSICAL MEDICINE & [place] [address] Gina Morales MD [address] [place] [address] [facility] [place], [place] [id number] Muscle weakness; Urinary incontinence, mixed Discharge Disposition: Home Social History Tobacco Use [...] as of this encounter Progress Notes * Rosio Gonzalez, PT - 10/25/2011 11:51 AM EDT Physical Therapy Progress Note Total treatment time: 35 minutes Total timed code treatment: 35 minutes Date of Exam/First Treatment: 09/07/2011 Date of onset: chronic, surgery 03/28/11 Referring Provider: Delmer Velasco MD Diagnosis: 1. Urinary, incontinence, stress female (625.6S) 2. Muscle weakness (728.87A) Goals: Short term goals ( 4 weeks) 1. Patient to be indep in the performance of a home program of pelvic floor muscle exercises on a daily basis. 2. Patient will demonstrate a pelvic floor muscle contraction without breath inhalation . 3. Patient to complete SEMG evaluation. 4. Patient to demonstrate knowledge of strain/valsalva actions and how to avoid them to protect repair. 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 Patient to be independent with ongoing self management. 2. Patient will have decreased number of urinary incontinence by 50% . 3. ADL???s not limited by UI, urgency or frequency. S: Patient reports she has not been consistent with the HEP. She has tried the lower abdominal muscle isometrics and attempted to do a kegel by lifting her hips. Patient requests PT closer to home as she is unable to make the drive. O: Treatment: therex x 2 Evaluation: 09/07/11 External Exam: Introitus: open at rest, loose, symmetric Introitus: perineal descent with cough Pelvic Floor Contraction: absent to trace, inconsistent with deep breath inhalation, without perineal body elevation Valsalva: absent pelvic floor excursion without signs of anterior and posterior laxity , with muscle contraction Palpation: Non-tender to pelvic clock Internal Exam: Levator ani muscle strength: 3:00 1/5, 6:00 1/5, and 9:00 1/5, inconsistent with LE muscle overflow, deep breath inhalation, with cues, unable to change breathing pattern Levator ani muscle tone: 3/5, tenderness 9:00>3:00 Hold Time: 1-2 seconds, inconsistent Valsalva: absent pelvic floor excursion without signs of anterior and posterior laxity Today: External Exam: Introitus: open at rest, loose, symmetric Introitus: perineal descent with cough Pelvic Floor Contraction: absent to trace, inconsistent with deep breath inhalation, without perineal body elevation Valsalva: absent pelvic floor excursion without signs of anterior and posterior laxity , with muscle contraction Palpation: Non-tender to pelvic clock Internal Exam: Levator ani muscle strength: 3:00 1/5, 6:00 1/5, and 9:00 1/5, inconsistent with LE muscle overflow, deep breath inhalation, with cues, unable to change breathing pattern Levator ani muscle tone: 3/5, tenderness 9:00>3:00 Hold Time: 1-2 seconds, inconsistent Valsalva: mild pelvic floor excursion without signs of anterior and posterior laxity diaphragmatic breathing with consistent cues and poor consistency stabilization program: difficulty isolating each muscle group, tends to inhale and hold breath withall muscle groups and contractions Review HEP and self care: home exercise program including stabilization exercises(sitting, lower abdominal, gluteus dewey, hip adductors and trial of pelvic floor muscles, all 5 seconds hold x 5 reps, 2x/day), awareness of habits: avoiding strain/valsalva activities A: Underactive pelvic floor muscles with mixed urinary incontinence and muscle weakness. Patient would benefit from consistent course of PT to help her isolate pelvic floor muscles as well as a trialof NMES. Patient unable to perform consistent pelvic floor muscle contraction without breath inhalation. P: Patient provided with name of a [facility] PT closer to home. Patient to continue with HEP on her own. Patient knows to contact me with any questions or concerns. documented in this encounter Plan of Treatment Not on file documented as of this encounter Visit Diagnoses Diagnosis Muscle weakness Muscle weakness (generalized) Urinary incontinence, mixed Mixed incontinence urge and stress (male)(female) documented in this encounter Care Teams Tank Truck Engine Mechanic Relationship Specialty Start Date End Date Gina Morales MD [facility] [address] [place] [address] [place] [address] PCP - General 01/18/11 01/27/14 documented as of this encounter
--- OUTSIDE RECORDS SUMMARY | 2024-01-10 02:03 | XMS_ITS | Encounter Summary ---
Author Organization [facility] Address [facility] [place] [address] Care Team Providers Care Wader Boot Top Assembler Name Role Phone Gina Morales MD Primary Care Provider [phone] Reason for Visit * Reason Comments GI Problem Encounter Details Date Type Department Care Team (Late st Contact Info) Description 08/05/2015 9:00 AM EST Office [place] [address] Yossi Morales APRN [facility] [place] [address] Constipation, unspecified constipation type; Gastroesophageal reflux disease, esophagitis presence not specified; RUQ pain Social History Tobacco Use Types Packs/Day Years [...] Sign Reading Time Taken Comments Blood Pressure 126/60 08/05/2015 8:56 AM EST Pulse 62 08/05/2015 8:56 AM EST Temperature - - Respiratory Rate - - Oxygen Saturation - - Inhaled Oxygen Concentration - - Weight 108 kg (238 lb 3.2 oz) 08/05/2015 8:56 AM EST Weighed with boots. Height 165.1 cm (5' 5) 08/05/2015 8:56 AM EST Body Mass Index 39.64 08/05/2015 8:56 AM EST documented in this encounter Progress Notes * Yossi Morales RN - 08/05/2015 9:12 AM EST Section of Gastroenterology and Hepatology [address] [place], [place] [id number] .Shobha Díaz : 1960 Patient is here for further evaluation of gastrointestinal symptoms at the request of Gina Morales MD. HPI: Pt is here for ibs. Stools can alternate in consistency and frequency. 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 Can go a few days with no stool. Then will have urgency and loose stool. Then other days stools are hard. Does not take laxative or anti-diarrhea medication on a regular basis. Has noticed milk products can cause her sx. No blood in stool. Mucus in stool. Reviewed diet. I eat a bland diet. when I stress I use food for comfort. No change in appetite or weight. Post-prandially can experience bloating, stomach pressure. Limited income. Uses soup shaniqua and food pantry. Significant amount of gas, bloat. Per pt had a colonoscopy at [facility]. ?year. told I do not need to return for 10 years. Straining. Does not feel empty. Has to insert fingers into vagina to help facilitate stool.. No fecal seepage or incontinence. Pt has been taking Protonix 40mg qd for a long time. Overall controls her reflux sx. Notes egd long time ago. Chokes easily. Hang up at times in the throat. Mostly solids. Has regurgitate the bolus. No n/v, chest pain, ent concerns. Can experience right sided pain. No particular pattern or trigger. But becoming more frequent. History Social History ??? Marital Status: Spouse Name: N/A Number of Children: N/A ??? Years of Education: N/A Occupational History ??? Not on file. Social History Main Topics ??? Smoking status: Never Smoker ??? Smokeless tobacco: Never Used ??? Alcohol Use: No Comment: Quit, 2000 ??? Drug Use: Not on file ??? Sexual Activity: Not on file Other Topics Concern ??? Not on file Social History Narrative Medical History: gerd, ibs, hyperlipidemia, asthma, anxiety/depression, hypothyroidism Surgical History: hannah, tkr bilaterally, tubal ligation, tonsillectomy, carpal tunnel bilaterally Family History: mother and father: stomach issues Allergies Allergen Reactions ??? Oxycontin [Oxycodone] Itching ??? Valium [Diazepam] Other (See Comments) makes me depressed Current outpatient prescriptions: ??? estrogens, conjugated, (PREMARIN) 0.625 mg Tablet, Take 1 tablet by mouth daily., Disp: 90 tablet, Rfl: 4 ??? PROAIR HFA 90 mcg/actuation HFA Aerosol Inhaler, Inhale 2 puffs into the lungs., Disp: , Rfl: 0 ??? DOC-Q-LACE 100 mg Capsule, Take 100 mg by mouth as needed., Disp: , Rfl: 0 ??? polyethylene glycol (MIRALAX) 17 gram Powder in Packet, Take 17 g by mouth daily as needed., Disp: , Rfl: ??? busPIRone (BUSPAR) 15 mg Tablet, Take 15 mg by mouth 2 times daily., Disp: , Rfl: ??? pantoprazole (PROTONIX) 40 mg Tablet, Delayed Release (E.C.), Take 40 mg by mouth daily., Disp:, Rfl: ??? levothyroxine (SYNTHROID) 75 mcg Tablet, Take 50 mcg by mouth daily., Disp: , Rfl: ??? fluticasone (FLONASE) 50 mcg/actuation nasal spray, 1 spray by Each Nare route daily., Disp: , Rfl: ??? traZODone (DESYREL) 100 mg tablet, Take 200 mg by mouth nightly., Disp: , Rfl: ??? simvastatin (ZOCOR) 20 mg tablet, Take 40 mg by mouth nightly., Disp: , Rfl: ??? aspirin 81 mg Tablet, Chewable, Take 81 mg by mouth daily., Disp: , Rfl: Review of Systems - Negative except General: Cardiac: Resp: GI: see above : MS: Neuro: Skin: Psyche: Sleep: Endo: Physical Exam: soft, tympanic, tender in rlq, no mass, organomegaly Impression: 1. Gerd: pantoprazole 40mg qd, 30 minutes before breakfast. Schedule upper endoscopy and abdominal u/s. 2. IBS: low fodmap diet. Kefir. Peppermint/richa/fennel. kub today. Obtain cbc, cmp, ttg, tsh. Spent time discussing how to shop, label comparison, dividing food/cost share. Obtain colonoscopy from [facility]. 3. Gif in 6-8 weeks. I spent a total of 56 minutes face to face with this patient; 36 minutes were spent counseling the patient in the medical problems described above. Sincerely, Yossi Morales NP Section of Gastroenterology and Hepatology documented in this encounter Miscellaneous Notes * Addendum Note - Sarah Noyola - 08/05/2015 10:28 AM ESTAddended by: SARAH NOYOLA on: 08/05/2015 10:28 AM Modules accepted: Orders documented in this encounter Plan of Treatment Scheduled Orders Name Type Priority Associated Diagnoses Orde r Schedule UPPER GI ENDOSCOPY Procedures Routine Gastroesophageal reflux disease, esophagitis presence not specified Ordered: 08/05/2015 documented as of this encounter Procedures Procedure Name Priority Date/Time Associated Diagnosis Comments HEMOGRAM Routine 08/05/2015 10:29 AM EST RUQ pain DIFFERENTIAL, AUTOMATED Routine 08/05/2015 10:29 AM EST RUQ pain TISSUE TRANSGLUTAMINASE, IGA Routine 08/05/2015 10:29 AM EST RUQ pain CBC (WITH DIFF) Routine 08/05/2015 10:29 AM EST RUQ pain TSH Routine 08/05/2015 10:29 AM EST RUQ pain COMPREHENSIVE METABOLIC PANEL Routine 08/05/2015 10:29 AM EST RUQ pain documented in this encounter Results * US Abdomen Limited (09/03/2015 9:38 AM EDT) Anatomical Region Laterality Modality Abdomen Ultrasound 09/03/2015 9:36 AM EDT Impressions 09/03/2015 9:47 AM EDT Impression Ultrasound - Abdomen Limited - Summary Normal gallbladder without evidence of gallstones or acute cholecystitis. Right parapelvic simple cyst. No evidence of renal obstruction. Pancreas not visualized secondary to overlying bowel gas. I ??viewed the images and agree with the above interpretation. ?Misti Maradiaga MD Electronically Signed Final Report ?? 09/03/2015 09:47 am Narrative 09/03/2015 9:47 AM EDT Abdominal ?(Signed Final 09/03/2015 09:47 am) Patient Info ID #: ? [id number] ?: ??[birth year] (55 yrs) Name: ? SHOBHA DÍAZ ? Visit Date: 09/03/2015 09:36 am Performed By Performed By: ? Rosalie Tellez RDMS Attending: ?Hiren LUNDY, Misti Associate: ?Shira Guevara DO Referred By: ?DIETER LOGAN MD Service(s) Provided ??UABDLIM - Abdominal Limited Survey Single ? [id number] ??Organ or Quadrant - [id number] Indications ??ruq pain, ?gb stones ?gb inflammation Comparison No prior studies for comparison. ----- Liver ----- Right Lobe Length: ?? 14.3 ?? cm Echogenicity/Echotexture: ?? Normal Portal Veins: ?Patent Hepatic Veins: ?? Patent Gallbladder Cholelithiasis: ?No stones visualized Wall Thickness: ?Normal wall thickness Focal Tenderness: ?Negative sonographic Villalba's sign Biliary Tract Intrahepatic Ducts: ?? Normal Extrahepatic Ducts: ?? Normal Common Duct Size: ? 2.0 ? mm -------- Pancreas -------- Head: ? Poorly visualized due to overlying bowel Tail: ? Poorly visualized due to overlying bowel Body: ? Poorly visualized due to overlying bowel Right Kidney Size (cm) ?L: ??10.5 Cortical Thickness: ?Normal Cortical Echogenicity: ?? Normal Hydronephrosis: ?No sonographic evidence Comment: ?Parapelvic cyst (Mid/Upper pole) 1.5 x 1.1 x 1.6 cm ----- Aorta ----- Measurements (cm): Proximal ? AP: ?? 1.8 --- IVC --- Normal in caliber where visualized. Procedure Note Misti Maradiaga MD - 09/03/2015 Abdominal (Signed Final 09/03/2015 09:47 am) Patient Info ID #: [id number] : [birth year] (55 yrs) Name: SHOBHA DÍAZ Visit Date: 09/03/2015 09:36 am Performed By Performed By: Rosalie Tellez RDMS Attending: Misti Maradiaga MD Associate: Shira Guevara DO Referred By: DIETER LOGAN MD Service(s) Provided UABDLIM - Abdominal Limited Survey Single 20267 Organ or Quadrant - [id number] Indications ruq pain, ?gb stones ?gb inflammation Comparison No prior studies for comparison. ----- Liver ----- Right Lobe Length: 14.3 cm Echogenicity/Echotexture: Normal Portal Veins: Patent Hepatic Veins: Patent Gallbladder Cholelithiasis: No stones visualized Wall Thickness: Normal wall thickness Focal Tenderness: Negative sonographic Villalba's sign Biliary Tract Intrahepatic Ducts: Normal Extrahepatic Ducts: Normal Common Duct Size: 2.0 mm -------- Pancreas -------- Head: Poorly visualized due to overlying bowel Tail: Poorly visualized due to overlying bowel Body: Poorly visualized due to overlying bowel Right Kidney Size (cm) L: 10.5 Cortical Thickness: Normal Cortical Echogenicity: Normal Hydronephrosis: No sonographic evidence Comment: Parapelvic cyst (Mid/Upper pole) 1.5 x 1.1 x 1.6 cm ----- Aorta ----- Measurements (cm): Proximal AP: 1.8 --- IVC --- Normal in caliber where visualized. IMPRESSION Impression Ultrasound - Abdomen Limited - Summary Normal gallbladder without evidence of gallstones or acute cholecystitis. Right parapelvic simple cyst. No evidence of renal obstruction. Pancreas not visualized secondary to overlying bowel gas. I viewed the images and agree with the above interpretation. Misti Maradiaga MD Electronically Signed Final Report 09/03/2015 09:47 am Dieter Logan MD IMG US GEN ORDERABLE S * Differential, Automated (08/05/2015 10:29 AM EST) Neutrophil % 55.4 % [facility] Neutrophil Absolute 3.61 1.50 - 6.30 x10(3)/[facility] Lymph % 35.5 % [facility] Lymphocytes Abs 2.3 1.0 - 3.6 x10(3)/[facility] Monocyte % 7.1 % [facility] Monocyte Abs 0.5 0.2 - 1.0 x10(3)/[facility] Eos % 1.5 % [facility] Eosinophils Abs 0.1 0.0 - 0.5 x10(3)/[facility] Basophil % 0.3 % [facility] Baso Absolute 0.0 0.0 - 0.2 x10(3)/[facility]OR[facility] Immature Gran % 0.20 % [facility] Comment: Immature granulocytes(IG's)percentage and absolute count will include metamyelocytes, myelocytes, and promyelocytes. Blood smears from CBCs yielding IG's will be scanned manually for concordance. If this scan disagrees with the automated IG or if promyelocytes are noted, a manual differential will be performed. Immature Gran Absolute 0.01 0.00 - 0.05 x10(3)/[facility] Blood specimen (specimen) 08/05/2015 10:29 AM EST 08/05/2015 10:42 AM EST Narrative Resulting Agency Comment Spec In Lab Dieter Logan MD HEMATOLOGY ORDERABLE S [facility] [address] * Hemogram (08/05/2015 10:29 AM EST) [facility] White Blood Cell 6.5 4.0 - 10.0 x10(3)/[facility] Red Blood Cell 4.52 3.93 - 5.22 x10(6)/[facility] Hemoglobin 12.9 11.2 - 15.7 gm/dL [facility] Hematocrit 39.3 34.0 - 45.0 % [facility] Mean Cell Volume 86.9 79.0 - 94.0 fL [facility] Mean Cell Hemoglobin 28.5 26.6 - 32.2 pg [facility] Mean Cell Hemoglobin Concentration 32.8 32.0 - 36.5 gm/dL [facility] Platelet 223 145 - 370 x10(3)/[facility] RDW Standard Deviation 43.3 35.0 - 46.0 fL [facility] RDW coefficient of variation 13.6 10.9 - 14.4 % [facility] Mean Platelet Volume 10.3 9.0 - 12.0 fL [facility] Blood specimen (specimen) 08/05/2015 10:29 AM EST 08/05/2015 10:42 AM EST Narrative Resulting Agency Comment Spec In Lab Dieter Logan MD HEMATOLOGY ORDERABLE S [facility] [address] * Tissue transglutaminase, IgA (08/05/2015 10:29 AM EST) [facility] TTG IgA Ab 0.3 0.1 - 10.0 u/ml [facility] Comment: New methodology as of 09-30-2014 Negative = <7 U/mL Equivocal = 7-10 U/mL Positive = >10 U/mL Blood specimen (specimen) 08/05/2015 10:29 AM EST 08/05/2015 1:54 PM EST Narrative Resulting Agency Comment Spec In Lab Dieter Logan MD IMMUNOLOGY ORDERABLE S Performing Organization Address [facility] Co de Phone Number [facility] [place] [address] * TSH (08/05/2015 10:29 AM EST) Thyroid Stimulating Hormone 1.35 0.27 - 4.20 mcIU/mL [facility] Blood specimen (specimen) 08/05/2015 10:29 AM EST 08/05/2015 10:42 AM EST Narrative Resulting Agency Comment Spec In Lab Dieter Logan MD CHEMISTRY ORDERABLES Performing Organization Address [facility] de Phone Number [facility] [place] [address] * Comprehensive metabolic panel (non-fasting) (08/05/2015 10:29 AM EST) Glucose 90 65 - 199 mg/dL [facility] Comment:Diabetes: >=200 mg/d L plus symptoms Blood Urea Nitrogen 13 8 - 18 mg/dL [facility] Creatinine 0.74 0.70 - 1.20 mg/dL [facility] Comment: Please note that the pediatric reference intervals supplied above were not validated at [facility]. Results from pediatric patients should be interpreted in conjunction to the patient's age, height and muscle mass. Sodium 140 135 - 145 mmol/L [facility] Potassium 4.4 3.5 - 5.0 mmol/L [facility] Comment: Please note: ??Patients with WBC >100,000 may have falsely elevated Potassium levels. ??For accurate Potassium quantification in these patients send serum separator tube (gold top) for subsequent determinations. ??Contact the Clinical Chemistry Laboratory if there are any questions. Chloride 103 98 - 107 mmol/L [facility] Carbon Dioxide 26 22 - 31 mmol/L [facility] Anion Gap 11 5 - 15 mmol/L [facility] Calcium 9.4 8.5 - 10.5 mg/dL [facility] Protein, Total 7.2 6.1 - 8.0 gm/dL [facility] Albumin 4.5 3.2 - 5.2 gm/dL [facility] Aspartate Aminotransferase 20 0 - 30 unit/L [facility] Alanine Aminotransferase 12 0 - 30 unit/L [facility] Alkaline Phosphatase 72 40 - 104 unit/L [facility] Bilirubin, Total 0.4 0.2 - 1.3 mg/dL [facility] Bilirubin, Direct 0.1 0.0 - 0.3 mg/dL [facility] Est Glomerular Filtration Rate >60 >=60 [facility] Comment: This estimated GFR (eGFR) [...] the following links into your internet browser. [email or web address] Blood specimen (specimen) 08/05/2015 10:29 AM EST 08/05/2015 10:42 AM EST Narrative Resulting Agency Comment Spec In Lab Dieter Logan MD CHEMISTRY ORDERABLES [facility] [place] [address] documented in this encounter Visit Diagnoses Diagnosis Constipation, unspecified constipation type Gastroesophageal reflux disease, esophagitis presence not specified RUQ pain Abdominal pain, right upper quadrant RUQ pain Abdominal pain, right upper quadrant documented in this encounter Care Teams Wader Boot Top Assembler Relationship Specialty Start Date End Date Gina Morales MD H[facility] [address] [place] [address] [place] [address] PCP - General 01/29/14 04/05/16 documented as of this encounter
--- OUTSIDE RECORDS SUMMARY | 2024-01-10 02:03 | XMS_ITS | Encounter Summary ---
Author Organization Formerly [facility] Address [facility] [place] [address] Care Team Providers Care Material Reclaimer Name Role Phone Gina Morales MD Primary Care Provider [phone] Reason for Visit * Auth/Cert Specialty Diagnoses / Procedures Referred By Yomi morales Referred To Contact Diagnoses gerd Procedures PRO UPPER GI ENDOSCOPY, DIAGNOSTIC EGD, UPPER GI ENDOSCOPY Referral ID Status Reason Start Date Expiration Date Visits Re quested Visits Authorized [id number] 1 1 Encounter Details Date Type Department Care Team (Latest Contact Info) Description 09/03/2015 9:04 AM EDT - 09/03/2015 9:53 AM EDT Hospital [place] [phone] Erik Logan MD [facility] [place] [address] RUQ pain Discharge Disposition: Home Social History Tobacco Use [...] Sig Dispensed Refills Start Date End Date PROAIR HFA 90 mcg/actuation HFA Aerosol Inhaler Inhale 2 puffs into the lungs. 0 03/10/2015 traZODone (DESYREL) 100 mg tabletIndications:Vagin al bleeding,Pelvic pain in female,Dyspareunia,Urin zabrina incontinence, mixed Take 150 mg by mouth nightly. levothyroxine (SYNTHROID) 50 mcg Tablet 0 06/04/2015 11/01/2017 simvastatin (ZOCOR) 40 mg Tablet Reported on 06/24/2016 0 07/31/2015 11/01/2017 venlafaxine (EFFEXOR) 37.5 mg Tablet Take 37.5 mg by mouth daily. Reported on 06/24/2016 11/01/2017 loratadine (CLARITIN) 10 mg Tablet Take 10 mg by mouth daily. 11/01/2017 estrogens, conjugated, (PREMARIN) 0.625 mg TabletIndications:Menop ause Take 1 tablet by mouth daily. 90 tablet 4 09/01/2015 08/01/2019 DOC-Q-LACE 100 mg Capsule Take 100 mg by mouth as needed. Reported on 06/24/2016 0 03/10/2015 11/01/2017 polyethylene glycol (MIRALAX) 17 gram Powder in Packet Take 17 g by mouth daily as needed. 03/23/2016 busPIRone (BUSPAR) 15 mg Tablet Take 15 mg by mouth 2 times daily. 11/01/2017 aspirin 81 mg Tablet, Chewable Take 81 mg by mouth daily. Reported on 06/24/2016 06/07/2017 pantoprazole (PROTONIX) 40 mg Tablet, Delayed Release (E.C.) Take 40 mg by mouth daily. 06/07/2017 documented as of this encounter Plan of Treatment Not on file documented as of this encounter Procedures Procedure Name Priority Date/Time Associated Diagnosis Comments US ABDOMEN LIMITED Routine 09/03/2015 9: 38 AM EDT RUQ pain documented in this encounter Results [...] 09:47 am) Patient Info ID #: ? [id number] ?: ??[birth year] (55 yrs) Name: ? JANICE ARCEORY ? Visit Date: 09/03/2015 09:36 am Performed By Performed By: ? Rosalie Tellez RDMS Attending: ?Hiren LUNDY, Misti Associate: ?Shira Guevara DO Referred By: ?ERIK LOGAN MD Service(s) Provided ??UABDLIM - Abdominal Limited Survey Single ? 24493 ??Organ or Quadrant - [id number] Indications ??ruq pain, ?gb stones ?gb inflammation [...] 09/03/2015 09:47 am) Patient Info ID #: [id number] : [birth year] (55 yrs) Name: JANICE DÍAZ Visit Date: 09/03/2015 09:36 am Performed By Performed By: Rosalie Tellez RDMS Attending: Misti Maradiaga MD: Shira Guevara DO Referred By: ERIK LOGAN MD Service(s) Provided UABDLIM - Abdominal Limited Survey Single 02336 Organ or Quadrant - [id number] Indications ruq pain, ?gb stones ?gb inflammation [...] Electronically Signed Final Report 09/03/2015 09:47 am Erik Logan MD IMG US GEN ORDERABLE S documented in this encounter Visit Diagnoses Diagnosis RUQ pain Abdominal pain, right upper quadrant documented in this encounter Care Teams Material Reclaimer Relationship Specialty Start Date End Date Gina Morales MD [facility] [address] [place] [address] [place] [address] PCP - General 01/29/14 04/05/16 documented as of this encounter
--- OUTSIDE RECORDS SUMMARY | 2024-01-10 02:03 | XMS_ITS | Encounter Summary ---
Author Organization [facility] [place] [address] Care Team Providers Care Speech Pathology Assistant Name Role Phone Shashi Verma Primary Care Provider [phone] Encounter Details Date Type Department Care Team (Latest Contact Info) Description 04/18/2016 1:00 PM EST Procedure [place] [address] Constipation, unspecified constipation type Social History Tobacco Use Types Packs/Day Years [...] as of this encounter Progress Notes * Maria Ines Muir RN - 04/18/2016 1:00 PM EST Anal Manometry performed without difficulty and was well tolerated by patient. documented in this encounter Plan of Treatment Not on file documented as of this encounter Visit Diagnoses Diagnosis Constipation, unspecified constipation type documented in this encounter Care Teams Speech Pathology Assistant Relationship Specialty Start Date End Date Shashi Verma PA [address] [place] [address] PCP - General Family Medicine 04/06/16 01/14/20 documented as of this encounter
--- OUTSIDE RECORDS SUMMARY | 2024-01-10 02:03 | XMS_ITS | Encounter Summary ---
Author Organization [facility] Address [facility] [place] [address] Care Team Providers Care Attic Fans Mechanic Name Role Phone Gina Morales MD Primary Care Provider Reason for Visit * Reason Comments Follow-up s/p surgery 02/2011 Encounter Details Date Type Department Care Team (Late st Contact Info) Description 08/22/2013 10:15 AM EDT Office Visit Obstetrics [place] [address] Casey Velasco MD [facility] DR OBSTETRICS [place] [address] Urinary retention with incomplete bladder emptying (Primary Dx); Pelvic pressure in female Discharge Disposition: Home Social History Tobacco Use [...] Sign Reading Time Taken Comments Blood Pressure 140/84 08/22/2013 10:32 AM EDT Pulse - - Temperature - - Respiratory Rate - - Oxygen Saturation - - Inhaled Oxygen Concentration - - Weight 109.3 kg (241 lb) 08/22/2013 10:32 AM EDT Height 166.4 cm (5' 5.5) 08/22/2013 10:32 AM ED T Body Mass Index 39.49 08/22/2013 10:32 AM EDT documented in this encounter Progress Notes * Casey Velasco MD - 08/22/2013 11:07 AM EDT Patient Active Problem List Diagnosis Code ??? Preventative health care V70.0 ??? History of uterine prolapse V13.29 ??? Urinary incontinence, mixed 788.33 ??? Muscle weakness 728.87 ??? Dyspareunia, female 625.0 SUBJECTIVE: Shobha Ramírez comes in today for evaluation of pelvic pressure and discomfort. Bowels: She is taking a stool softener, better but still with some constipation. Prior to this, stools were firm, and difficult to pass stools. She denies fecal incontinence. Urine: She has some urgency. She has rare accidents. She denies UMA with cough unless very full. She has some sensation of incomplete emptying. No vaginal bleeding or discharge. She was having dyspareunia last year but not sexually active now. Last mammogram: December,, normal Last colonoscopy: A year ago, normal; repeat in a year. Lives alone with two cats. Not working outside the home. Past Medical History Diagnosis Date ??? Bipolar disorder ADHD ??? Learning disability ??? Hyperlipemia ??? Obesity ??? ALCOHOL ABUSE, IN REMISSION sober since 2000 ??? Uterovaginal prolapse, incomplete vaginal hysterectomy, uterosacral ligament suspension, posterior colporrhaphy, midurethral sling, 03/28/2011 ??? Urinary, incontinence, stress female 03/28/2011 Past Surgical History Procedure Date ??? Tubal ligation ??? Knee arthroscopy bilateral ??? Carpal tunnel release bilateral ??? Tonsillectomy ??? Hysterectomy, vaginal 03/28/2011 ??? Revaginal prolapse, uterosacral 03/28/2011 ??? Post colporrhaphy, rectum/vagina 03/28/2011 ??? Sling oper stres incontinence 03/28/2011 ? ? Vaginal hysterectomy, uterus 250 gms/< 03/28/2011 HYSTERECTOMY, VAGINAL, <250 GRAMS performed by CASEY VELASCO at [facility] ??? Revaginal prolapse, uterosacral 03/28/2011 COLPOPEXY, VAGINAL, INTRAPERITONEAL APPROACH performed by CASEY VELASCO at [facility] ??? Sling oper stres incontinence 03/28/2011 URETHRAL SUSPENSION, SLING\FASCIA OR SYNTHETIC performed by CASEY VELASCO at [facility] ??? Post colporrhaphy, rectum/vagina 03/28/2011 COLPORRHAPHY, POST RECTOCELE WITH OR W\O PERINEORRHAPHY performed by CASEY VELASCO at [facility] OBJECTIVE: Blood pressure 140/84, height 166.4 cm (5' 5.5), weight 109.317 kg (241 lb), last menstrual abplhi0701/27/2011. Pelvic: Normal external genitalia, including urethral meatus and perineum. Vagina: Mild posterior vaginal descent. No erosions, non-tender Cervix: absent Bimanual: Uterus is absent; no appreciable adnexal masses or tenderness. Rectal deferred. Pelvic Organ Prolapse Quantification (POP-Q): Aa -3 Ba -3 C -9 Gh Rest strain 3.5,3.5 PB Rest strain 2.5, 2.5 TVL 9 Ap -1 Bp -1 D -- Bladder scan PVR: 200 mL PROCEDURE NOTE: Straight catheterization Straight catheterization was performed after verbal consent. The urethra was first prepped with Betadine and a 14 Fr [place] female catheter passed. PVR was 230 mL. Urine dipstick negative for leuk, nitrites, blood ASSESSMENT: Shobha Ramírez is a 53 y.o. year old woman with: ?? Urinary retention ?? Pelvic pressure, possibly from retention. PLAN: Start 3 day bladder diary. Set up urodynamic testing. She does not feel she can learn self catheterization. If there is evidence for obstruction, consider division of the sling. I spent 25 minutes total with the patient, with 15 minutes of the time spent [id number] in discussing her diagnosis and reviewing options for treatment. CASEY VELASCO MD Division of Female Pelvic Medicine & Reconstructive Surgery documented in this encounter Plan of Treatment Not on file documented as of this encounter Procedures Procedure Name Priority Date/Time Associated Diagnosis Comments POCT URINE DIPSTICK Routine 08/22/2013 Urinary retention with incomplete bladder emptying documented in this encounter Results * POCT urine dipstick (08/22/2013) POC Sp Tucker 1.002 - 1.030 POC pH, UA 5.0 - 8.5 POC Leuk, UA Neg. Negative - Negative POC Nitrite, UA Neg. Negative - Negative POC Protein, UA Negative - Negative mg/dL POC Glucose, UA Normal - Normal mg/dL POC Ketone, UA Negative - Negative POC Urobil, UA 0.2 - 1.0 mg/dL POC Bili, UA Negative - Negative POC Blood, UA Neg. Negative - Negative jimbo/uL Casey Velasco MD POINT OF CARE TEST O RDERABLES documented in this encounter Visit Diagnoses Diagnosis Urinary retention with incomplete bladder emptying- Primary Incomplete bladder emptying Pelvic pressure in female Other specified symptom associated with female genital organs documented in this encounter Care Teams Attic Fans Mechanic Relationship Specialty Start Date End Date Gina Morales MD [facility] [address] [place] [address] [place] [address] PCP - General 01/18/11 01/27/14 documented as of this encounter
--- OUTSIDE RECORDS SUMMARY | 2024-01-10 02:03 | XMS_ITS | Encounter Summary ---
Author Organization [facility] [place] [address] Care Team Providers Care Armature [employer] Name Role Phone Shashi Verma Primary Care Provider [phone] Reason for Visit * Reason Onset Date Comments Other 03/05/2018 Encounter Details Date Type Department Care Team (Late st Contact Info) Description 03/05/2018 Tele[place] [phone] Pauly Lopez RN Other Social History Tobacco Use Types Packs/Day Years [...] Telephone Encounter - Pauly Lopez RN - 03/05/2018 12:38 PM EDT Received call from patient letting us know that she does not wish to pursue pelvic MRI with defacography at this time and wishes to cancel the procedure. States I've had a lot of testing done this year. Attempted to return call to patient to discuss. Unable to reach patient. Will review with provider. documented in this encounter Plan of Treatment Not on file documented as of this encounter Visit Diagnoses Not on filedocumented in this encounter Care Teams Armature [employer] Relationship Specialty Start Date End Date Shashi Verma PA [address] [place] [address] PCP - General Family Medicine 04/06/16 01/14/20 documented as of this encounter
--- OUTSIDE RECORDS SUMMARY | 2024-01-10 02:03 | XMS_ITS | Encounter Summary ---
Author Organization [facility] Address [facility] [place] [address] Care Team Providers Care Shoulder Boner Name Role Phone Gina Morales MD Primary Care Provider [phone] Reason for Visit * Reason Comments Follow-up Encounter Details Date Type Department Care Team (Late st Contact Info) Description 09/01/2015 11:00 AM EDT Office Visit Obstetrics [place] [address] Casey Velasco MD [facility] OBSTETRICS [place] [address] Menopause; Urge incontinence of urine; Dyspareunia, female Social History Tobacco Use Types [...] Sign Reading Time Taken Comments Blood Pressure 118/76 09/01/2015 10:45 AM EDT Pulse - - Temperature - - Respiratory Rate - - Oxygen Saturation - - Inhaled Oxygen Concentration - - Weight 108 kg (238 lb) 09/01/2015 10:45 AM EDT p t states Height 165.1 cm (5' 5) 09/01/2015 10:45 AM EDT Body Mass Index 39.61 09/01/2015 10:45 AM EDT documented in this encounter Progress Notes * Casey Velasco MD - 09/01/2015 11:07 AM EDT Patient Active Problem List Diagnosis Code ??? Preventative health care Z00.00 ??? History of uterine prolapse Z87.42 ??? Urinary incontinence, mixed N39.46 ??? Muscle weakness M62.81 ??? Dyspareunia, female N94.1 ??? Fecal incontinence R15.9 ??? Urinary retention with incomplete bladder emptying R33.9 ??? Gastroesophageal reflux K21.9 ??? IBS (irritable bowel syndrome) K58.9 SUBJECTIVE: Shobha Ramírez comes in today for follow-up. She has seen Yossi Morales APRN. She takeslaxatives to try to move her bowels. She takes Dulcolax and PRN Miralax to house mover helper her bowels. She isgoing 1-2 times per week. She has bloating. She has an upper GI scheduled this week with Dr. Kimball. She still has urge incontinence at times and will feel she has an urge at other times and then cannot go. She previously learned clean intermittent self- catheterization (CIC) but has not been using CIC when she feels she cannot go. She also wants a refill on her estrogen supplements. OBJECTIVE: Blood pressure 118/76, height 165.1 cm (5' 5), weight 107.956 kg (238 lb), last menstrual period 01/27/2011. Exam deferred. Results for orders placed or performed in visit on 09/01/15 POCT urine dipstick Result Value Ref Range POC Sp Gardner 1.005 1.002 - 1.030 POC pH, UA 6 5.0 - 8.5 POC Leuk, UA negative Negative - Negative POC Nitrite, UA negative Negative - Negative POC Protein, UA negative Negative - Negative mg/dL POC Glucose, UA normal Normal - Normal mg/dL POC Ketone, UA negative Negative - Negative POC Urobil, UA normal 0.2 - 1.0 mg/dL POC Bili, UA negative Negative - Negative POC Blood, UA negative Negative - Negative jimbo/uL Bladder Scanner Result Value Ref Range Bladder Scan (mL) 24 mL ASSESSMENT: Shobha Ramírez is a 55 y.o. year old woman with: ?? Abdominal bloating, constipation. Planned upper GI endoscopy with Dr. Kimball. ?? Constipation. ?? Rectocele, may contribute to some degree to her difficulty with defecation but not likely to be contributing to all of her GI symptoms. ?? Urge urinary incontinence and some intermittent difficulty voiding. Prior need for CIC but reassuring PVR on serial ultrasounds. ?? Menopausal symptoms. PLAN: ??? She will follow up with Tr[facility] after evaluation with Dr. Kimball. ??? She will follow urge incontinence for now. She could try CIC again if her retention issues increase. ??? I signed a refill for Premarin, 0.625 mg daily. We discussed that tapering off ERT is recommended for most post-menopausal women due to lack of health benefits. Currently, she states she wants tocontinue ERT after hearing potential risks for cardiovascular disease, thrombosis. I spent 15minutes total with the patient, with 10 minutes of the time spent [id number] in discussing her diagnosis and reviewing options for treatment. CASEY VELASCO MD Division of Female Pelvic Medicine & Reconstructive Surgery documented in this encounter Plan of Treatment Not on file documented as of this encounter Procedures Procedure Name Priority Date/Time Associated Diagnosis Comments BLADDER SCANNER Routine 09/01/2015 Urge incontinence of urine POCT URINE DIPSTICK Routine 09/01/2015 Urge incontinence of urine documented in this encounter Results * Bladder Scanner (09/01/2015) Pathologist [facility] Bladder Scan (mL) 24 mL Casey Velasco MD URO PROC W/O RFL ORD ERABLES * POCT urine dipstick (09/01/2015) Pathologist [facility] POC Sp Gardner 1.005 1.002 - 1.030 POC pH, UA 6 5.0 - 8.5 POC Leuk, UA negative Negative - Negative POC Nitrite, UA negative Negative - Negative POC Protein, UA negative Negative - Negative mg/dL POC Glucose, UA normal Normal - Normal mg/dL POC Ketone, UA negative Negative - Negative POC Urobil, UA normal 0.2 - 1.0 mg/dL POC Bili, UA negative Negative - Negative POC Blood, UA negative Negative - Negative jimbo/uL Casey Velasco MD POINT OF CARE TEST O RDERABLES documented in this encounter Visit Diagnoses Diagnosis Menopause Asymptomatic postmenopausal status (age-related) (natural) Urge incontinence of urine Urge incontinence Dyspareunia, female Dyspareunia documented in this encounter Care Teams Shoulder Boner Relationship Specialty Start Date End Date Gina Morales MD [facility] [address] [place] [address] [place] [address] PCP - General 01/29/14 04/05/16 documented as of this encounter
--- OUTSIDE RECORDS SUMMARY | 2024-01-10 02:03 | XMS_ITS | Encounter Summary ---
Author Organization [facility] Address [facility] [place] [address] Care Team Providers Care Adult Literacy Instructor Name Role Phone Gina Morales MD Primary Care Provider [phone] Reason for Referral * Consultation (Routine) - Closed Specialty Diagnoses / Procedures Referred By Contac t Referred To Contact Gastroenterology Diagnoses Difficulty defecating Irritable bowel syndrome with diarrhea Casey Velasco MD [facility] DR OBSTETRICS [place] [address] Yossi Morales APRN [facility] [place] [address] Referral ID Status Reason Start Date Expiration Date V isits Requested Visits Authorized [id number] Closed Consult, Test & Treat 06/03/2015 06/02/2016 1 1 Reason for Visit * Reason Comments Follow-up Constipation Encounter Details Date Type Department Care Team (Late st Contact Info) Description 06/03/2015 11:30 AM EST Office Visit Obstetrics [place] [address] Casey Velasco MD [facility] OBSTETRICS [place] [address] Urinary incontinence, unspecified type; Urinary incontinence, mixed; Rectocele; Difficulty defecating; Irritable bowel syndrome with diarrhea Social History Tobacco Use Types Packs/Day Years [...] Sign Reading Time Taken Comments Blood Pressure 126/80 06/03/2015 11:13 AM EST Pulse 60 06/03/2015 11:13 AM EST Temperature - - Respiratory Rate - - Oxygen Saturation - - Inhaled Oxygen Concentration - - Weight - - Height - - Body Mass Index - - documented in this encounter Patient Instructions * Patient Instructions* Casey Velasco MD - 06/03/2015 11:48 AM EST ?? Try taking fiber (Benefiber, at night to keep bowels more regular. ?? We will set up consultation with Yossi Morales APRN in gastroenterology. ?? If the bladder symptoms worsen, we can consider trying a medication called 'mirabegron' to help with bladder spasms. documented in this encounter Progress Notes * Casey Velasco MD - 06/03/2015 11:28 AM EST Patient Active Problem List Diagnosis Code ??? Preventative health care Z00.00 ??? History of uterine prolapse Z87.42 ??? Urinary incontinence, mixed N39.46 ??? Muscle weakness M62.81 ??? Dyspareunia, female N94.1 ??? Fecal incontinence R15.9 ??? Urinary retention with incomplete bladder emptying R33.9 SUBJECTIVE: Shobha Ramírez comes in today for evaluation of constipation and problems with her bowels. Bowel movements: Every 3-4 days and then will go several times in a day, loose. She will have abdominal pain and cramping with her bowels. She has been splinting for bowels. She also has accidents attimes when they are loose. Urine: She was having mixed urinary incontinence symptoms in the past and had urinary retention. She feels urgency all the time. She finds it is worse after coffee. She will have urine leakage daily.She is no longer catheterizing. She denies vaginal bleeding or discharge. OBJECTIVE: Blood pressure 126/80, pulse 60, last menstrual period 01/27/2011. Results for orders placed or performed in visit on 06/03/15 Bladder Scanner Result Value Ref Range Bladder Scan (mL) 0 mL General: Anxious, but in no acute distress. Back: No CVAT. Abdomen: Obese; tender in the upper abdomen; no organomegaly, masses or hernias. Pelvic: Normal external genitalia, including urethral meatus and perineum. Vagina: Posterior wall descent to the hymen. Anterior wall support relatively normal. [place] support normal, non-tender. Cervix: absent Bimanual: Uterus is absent; no appreciable adnexal masses or tenderness. Rectal: Slightly decreased tone, squeeze. No masses, non-tender; + rectocele, no appreciable enterocele. Pelvic Organ Prolapse Quantification (POP-Q): Aa -1 Ba -1 C -9 Gh Rest strain 3,4 PB Rest strain 2.5, 2.5 TVL 10 Ap 0 Bp 0 D -- ASSESSMENT: Shobha Ramírez is a 55 y.o. year old woman with: ?? Irregular bowel movements with alternating constipation / loose BM. Likely some component of IBS. ?? Upper abdominal tenderness. ?? Rectocele, symptomatic but not likely the sole cause for other GI symptoms and pain. ?? Mixed urinary incontinence, urge-predominant symptoms now. She had retention previously but thisresolved after a period of using clean intermittent self catheterization (CIC). PLAN: ??? I recommended trying fiber supplementation (Benefiber versus Metamucil or Citrucel). ??? I discussed her GI symptoms. She agrees to see Gastroenterology (Yossi Morales APRN) for further evaluation. ??? We discussed the option of a trial of mirabegron to help with urge incontinence. She would rather not try a medication at present. I spent 30 minutes total with the patient, with 20 minutes of the time spent [id number] in discussing her diagnosis and reviewing options for treatment. CASEY VELASCO MD Division of Female Pelvic Medicine & Reconstructive Surgery documented in this encounter Plan of Treatment Scheduled Referrals Name Type Priority Associated Diagnoses Order Schedule Referral to Gastroenterology Outpatient Referral Routine Difficulty defecating Irritable bowel syndrome with diarrhea Ordered: 06/03/2015 documented as of this encounter Procedures Procedure Name Priority Date/Time Associated Diagnosis Comments BLADDER SCANNER Routine 06/03/2015 Urinary incontinence, mixed documented in this encounter Results * Bladder Scanner (06/03/2015) Bladder Scan (mL) 0 mL Casey Velasco MD URO PROC W/O RFL ORD ERABLES documented in this encounter Visit Diagnoses Diagnosis Urinary incontinence, unspecified type Urinary incontinence, mixed Mixed incontinence urge and stress (male)(female) Rectocele Difficulty defecating Unspecified constipation Irritable bowel syndrome with diarrhea Irritable bowel syndrome documented in this encounter Care Teams Adult Literacy Instructor Relationship Specialty Start Date End Date Gina Morales MD [facility] [address] [place] [address] [place] [address] PCP - General 01/29/14 04/05/16 documented as of this encounter
--- OUTSIDE RECORDS SUMMARY | 2024-01-10 02:03 | XMS_ITS | Encounter Summary ---
Author Organization [facility] [place] [address] Care Team Providers Care Planning Intern Name Role Phone Shashi Verma Primary Care Provider [phone] Reason for Visit * Reason Onset Date Comments Results 05/31/2016 Encounter Details Date Type Department Care Team (Late st Contact Info) Description 05/31/2016 Telephone [place] [phone] Terence Fountain, RN Results Social History Tobacco Use Types Packs/Day Years [...] encounter Miscellaneous Notes * Telephone Encounter - Terence Fountain RN - 05/31/2016 2:31 PM EST Left message for patient to call regarding test results. Per Yossi Morales APRN: Let pt know pelvic mri results ? She needs to do PT ? If this does not help after 6 month trial then consider surgical referral Pelvic MRI notable for urethral hypermobility with cystocele, rectocele, peritoneocele, and rectal prolapse. Results of pelvic MRI accord with HRAM testing which showed negative intrarectal pressure and recommended PT. Note that patient had an appointment with Rosio Gonzalez, but had to cancel due to transportation problems. Needs to reschedule. documented in this encounter Plan of Treatment Not on file documented as of this encounter Visit Diagnoses Not on filedocumented in this encounter Care Teams Planning Intern Relationship Specialty Start Date End Date Shashi Verma PA [address] [place] [address] PCP - General Family Medicine 04/06/16 01/14/20 documented as of this encounter
--- OUTSIDE RECORDS SUMMARY | 2024-01-10 02:03 | XMS_ITS | Encounter Summary ---
Author Organization [facility] [place] [address] Care Team Providers Care Printing Screen Assembler Name Role Phone Gina Morales MD Primary Care Provider [phone] Reason for Visit * Reason Onset Date Comments Advice Only 09/23/2015 Encounter Details Date Type Department Care Team ([facility] st Contact Info) Description 09/23/2015 Telephone [place] [phone] Maria Ines Muir, gum scoring machine operator Only Social History Tobacco Use Types Packs/Day Years [...] encounter Miscellaneous Notes * Telephone Encounter - Maria Ines Muir RN - 09/23/2015 9:10 AM EDT Patient calls leaving a message on the RN voicemail Patient states that she received a call yesterday and is returning the call. Per Yossi Morales: Please make sure pt is taking qd ppi. ? If not effective we will need to consider bid.? She has lymphocytic esophagitis.? We consider treating for gerd first? If continued sx we consider food allergies and refer to allergy?? Left patient message to call clinic to discuss results Patient states that there had been some issues with getting a prescription, getting it filled and covered. Patient states that this is now taken care of and now has the Protonix 40mg and will be taking it daily. Forwarding to Yossi Morales APRN documented in this encounter Plan of Treatment Not on file documented as of this encounter Visit Diagnoses Not on filedocumented in this encounter Care Teams Printing Screen Assembler Relationship Specialty Start Date End Date Gina Moraels MD [facility] [address] [place] [address] [place] [address] PCP - General 01/29/14 04/05/16 documented as of this encounter
--- OUTSIDE RECORDS SUMMARY | 2024-01-10 02:03 | XMS_ITS | Encounter Summary ---
Author Organization [facility] Address [facility] [place] [address] Care Team Providers Care Curriculum Writer Name Role Phone Gina Morales MD Primary Care Provider [phone] Reason for Visit * Reason Comments Post Op hysterectomy, sling, colporrhaphy Encounter Details Date Type Department Care Team (Late st Contact Info) Description 05/10/2011 3:00 PM EST Office Visit Obstetrics [place] [address] Devi Regalado APRN [facility] [place] [address] Post-operative state (Primary Dx) Discharge Disposition: Home Social History Tobacco Use [...] Sign Reading Time Taken Comments Blood Pressure 128/86 05/10/2011 2:57 PM EST Pulse - - Temperature - - Respiratory Rate - - Oxygen Saturation - - Inhaled Oxygen Concentration - - Weight 106.5 kg (234 lb 14.4 oz) 05/10/2011 2:57 PM EST Height 165.1 cm (5' 5) 05/10/2011 2:57 PM EST Body Mass Index 39.09 05/10/2011 2:57 PM EST documented in this encounter Progress Notes * Casey Velasco MD - 05/11/2011 4:34 PM EST I met with Ms. Raímrez at her postoperative visit as well. She has a small PDS suture that has a knotand tail poking out at the introitus. I attempted to remove it but the distal tails came off and the knot retracted. She will soak in a tub twice daily for the next two days. If not improving, she will call. CASEY VELASCO MD * Devi Regalado APRN - 05/10/2011 3:00 PM EST FEMALE PELVIC MEDICINE AND RECONSTRUCTIVE SURGERY POST OPERATIVE VISIT Date of visit: 05/10/2011 Patient name: Shobha Ramírez Date of surgery: 03/28/11 Procedure: Vaginal hysterectomy, high uterosacral ligament suspension, anterior / posterior colporrhaphy, mid urethral sling Pathology: benign Subjective: Ms. Ramírez is s/p the above procedures. She has been tolerating a regular diet. She denies nausea and vomiting, and she has been afebrile since surgery. Since surgery, she reports: None x Continued vaginal bleeding New pelvic related pain Abnormal vaginal discharge Burning with urination Blood in urine Enuresis New prolapse symptoms since surgery Bladder Function Number of daytime voids: 4-5 Number of nocturia events: 1-2 Urinary incontinence since surgery (y/n): yes If yes, [place] Incontinence Severity Index: How often do you experience urinary leakage? 0. Never 1. Less than once a month 2. A few times a month 3. A few times a week 4. Every day and/or night Value 4 How much urine do you lose each time? 0. None 1. Drops 2. Small Splashes 3. More Value 1 The Severity Index is the product of the two questions 0 - NONE 1-2 Slight 3-6 Moderate 8-9 Severe 12 Very severe SCORE: 4 If yes, leaks with: Event Presence Event Presence NONE [place] Walking x Cold Weather x Running Anticipation of going to the lavatory Cough/Sneeze x First morning void Lifting x Running water Laughing Other Number of pads / day: 1 Pad type: pantiliner Voiding Dysfunction: Symptom Presence NONE Straining to empty Incomplete emptying Weak stream x Feeling the urge to void after voiding Dribbling x Changes in position Difficulty initiating a stream Bowel Function Fecal incontinence since surgery? (stool/gas) no How many fecal incontinence episodes / week? none How often do you have bowel movements? 3-4/day Any new defecatory problems since surgery?: IF so which defecatory problem?: Symptom Presence Symptom Presence NONE Require laxatives regularly Difficulty emptying Less than three bowel movements / week Need to strain x Urgency Hard stools Other Loose stools Treatment Outcome Satisfaction How would you describe your level of satisfaction with your treatment outcome? 0. Strongly UNsatisfied 1. UNsatisfied 2. Neither satisfied nor unsatisfied 3. Satisfied 4. Strongly satisfied Value 4 Would you recommend this therapy to a friend?: y How much has your treatment outcome met your before treatment expectation? 0. Strongly NOT met my before treatment expectations 1. Not met my before treatment expectations 2. Undecided 3. Met my before treatment expectations 4. Strongly met my before treatment expectations 3 OBJECTIVE: BP 128/86 Ht 165.1 cm (5' 5) Wt 106.55 kg (234 lb 14.4 oz) BMI 39.09 kg/m2 LMP 01/27/2011 General: normal appearing female, pleasant mood, normal speech Abdomen: Abdomen soft, non-tender, bowel sounds normal. Surgical incision(s): well healed. Skin edges well applied. No evidence of erythema or induration. Back: Non-tender, without costovertebral angle or paraspinal tenderness Pelvic: Cough stress test (empty supine): negative External Genitalia: Vulva, Osakis's and Bartholin glands normal, urethra without tenderness or mass Vagina: normal, suture at perineal area poking her Discharge?: none Cervix: absent Bimanual (uterus/adnexa): Uterus absent, adnexa non tender, no masses POP Q Measurements: Aa -3 Ba -3 C -9 GH rest, strain 3/3 PB rest, strain 3/3 TVL 9 Ap -3 Bp -3 D Impression: Ms. Ramírez is a 51 y.o. year old woman now 6 wks s/p the above procedures. She has mild stress urinary incontinence and is c/o bloating and malodorous flatus. She has been eating increase fiber for her bowels. She had a small recessed suture at the perineal area that was bothering her, that Dr. Velasco attempted to remove. Plan: Activity: as tolerated Pelvic floor exercises 10 reps 2-3 times daily to maintain pelvic floor strength Will decrease fiber a bit and try GAS X. Soak in tub morning and night to perineal area for the next week. Call if this area is uncomfortable or ir suture continues to bother her. Return in 12 months / PRN to reassess DEVI REGALADO APRN Division of Female Pelvic Medicine/Reconstructive Surgery documented in this encounter Plan of Treatment Not on file documented as of this encounter Visit Diagnoses Diagnosis Post-operative state- Primary Other postprocedural status documented in this encounter Care Teams Curriculum Writer Relationship Specialty Start Date End Date Gina Morales MD [facility] [address] [place] [address] [place] [address] PCP - General 01/18/11 01/27/14 documented as of this encounter
--- OUTSIDE RECORDS SUMMARY | 2024-01-10 02:03 | XMS_ITS | Encounter Summary ---
Author Organization [facility] [place] [address] Care Team Providers Care Dandy Operator Name Role Phone Shashi Verma Primary Care Provider [phone] Reason for Referral * Diagnostic Test (Routine) - Closed Specialty Diagnoses / Procedures Referred By Contac t Referred To Contact Radiology Diagnoses Pelvic floor dysfunction Procedures MRI Pelvis Soft Tissue (Gi Gu Starch Dumper)WO Contrast MRI Pelvis Soft Tissue (GI JOURNEYMAN MECHANIC)W Contrast Yossi Morales APRN [facility] [place] [address] [place] [address] Referral ID Status Reason Start Date Expiration Date V isits Requested Visits Authorized [id number] Closed Specialty Service Requested 03/28/2018 06/26/2018 2 2 Encounter Details Date Type Department Care Team (Late st Contact Info) Description 01/08/2018 12:30 PM EDT Office [place] [address] Yossi Morales APRN [facility] [place] [address] Pelvic floor dysfunction Social History Tobacco Use Types Packs/Day Years [...] Sign Reading Time Taken Comments Blood Pressure 121/72 01/08/2018 12:06 PM EDT Pulse 70 01/08/2018 12:06 PM EDT Temperature - - Respiratory Rate - - Oxygen Saturation - - Inhaled Oxygen Concentration - - Weight 70.4 kg (155 lb 4.8 oz) 01/08/2018 12:06 PM EDT Height 166.4 cm (5' 5.5) 01/08/2018 12:06 PM ED T Body Mass Index 25.45 01/08/2018 12:06 PM EDT documented in this encounter Progress Notes * Yossi Morales RN - 01/08/2018 12:30 PM EDT __26__minutes of this__32__-minute visit were spent in face to face discussion and/or counseling the patient, regarding symptoms and treatment options as detailed below. Pt is here for follow up regarding progress with medical regimen. She takes senna 3 tablets daily and this helps her to have a daily bowel movement. At times has to use miralax and colace. If constipation worsens. She admits if she eats enough vegetables it helps her bowels as well. Pelvic floor dysfunction. At times she has to self disimpact. Reminded to consider a foot stool. Appropriate positioning. I do the best I can, I do not have a stool and the bathroom is small. Hx of bladder sling. Pt has to push on abdomen to try to urinate. 2015 pelvic mri: marked rectocele; cystocele; Pt stopped taking protonix. Did well for a period of time but sx returned. Heartburn and regurgitation. She resumed protonix 40mg qd. This has helped. No dysphagia, odynophagia, n/v. Tolerating diet. Weight stable. Pt admits she has had increased anxiety. Effected GI sx. Sent in basket message to primary regarding tx. Plan: 1. IBS-C: senna 3 tablets qd; miralax and colace prn. 2. Gerd: protonix 40mg qd 3. Pelvic floor dysfunction: schedule mri with defecography; discussed splinting 4. Gif in 2-3 months; f/u with pcp regarding anti-anxiety medication documented in this encounter Plan of Treatment Not on file documented as of this encounter Results * MRI Pelvis Soft Tissue (Gi Gu Starch Dumper)WO Contrast (04/09/2018 12:49 PM EST) Anatomical Region [...] EST EXAMINATION: MRI PELVIS SOFT TISSUE (GI JOURNEYMAN MECHANIC) WO CONTRAST CLINICAL HISTORY: with defecography, pelvic [...] 9.5 cm with defecation. Procedure Note Gi uHrtado MD - 04/09/2018 EXAMINATION: MRI PELVIS SOFT TISSUE (GI JOURNEYMAN MECHANIC) WO CONTRAST CLINICAL HISTORY: with defecography, pelvic [...] Grade III > 6 cm Yossi Morales NATIONAL VAN OWNER OPERATOR IMG MRI ORDERABLES documented in this encounter Visit Diagnoses Diagnosis Pelvic floor dysfunction Pelvic muscle wasting Pelvic floor dysfunction Pelvic muscle wasting documented in this encounter Care Teams Dandy Operator Relationship Specialty Start Date End Date Shashi Verma PA [address] [place] [address] PCP - General Family Medicine 04/06/16 01/14/20 documented as of this encounter
--- OUTSIDE RECORDS SUMMARY | 2024-01-10 02:03 | XMS_ITS | Encounter Summary ---
Author Organization [facility] [place] [address] Care Team Providers Care Team Primary Care Physician Name Role Phone Gina Morales MD Primary Care Provider [phone] Reason for Visit * Reason Onset Date Comments Other 08/11/2011 bladder mesh iss ue Encounter Details Date Type Department Care Team (Late st Contact Info) Description 08/11/2011 Telephone Obstetrics [place] [phone] Rahel Pagan, RN [address] [place] [id number] Other (bladder mesh issue) Social History Tobacco Use Types Packs/Day Years [...] encounter Miscellaneous Notes * Telephone Encounter - Rahel Pagan RN - 08/11/2011 2:39 PM EDT TELEPHONE NOTE Caller: Patient Reason for call: Patient had bladder suspension surgery last fall, and is calling now because she is having increasing pain and some bleeding with this repair. She was seen locally, and told that sheshould return to see Dr. Velasco. Plan/Instructions: Appointment made with Dr. Velasco for assessment of her issues. Per August, hissecretary, she received some documents from the appointment yesterday in [facility]. Adri is in agreement with this plan. documented in this encounter Plan of Treatment Not on file documented as of this encounter Visit Diagnoses Not on filedocumented in this encounter Care Teams Team Primary Care Physician Relationship Specialty Start Date End Date Gina Morales MD [facility] [address] [place] [address] [place] [address] PCP - General 01/18/11 01/27/14 documented as of this encounter
--- OUTSIDE RECORDS SUMMARY | 2024-01-10 02:03 | XMS_ITS | Encounter Summary ---
Author Organization [facility] [place] [address] Care Team Providers Care Studio Designer Name Role Phone Shashi Verma Primary Care Provider [phone] Reason for Visit * Reason Onset Date Comments Medication Refill 01/02/2018 Encounter Details Date Type Department Care Team (Late st Contact Info) Description 01/02/2018 Refill [place] [address] Cici Tanner CMA GASTROENTEROLOGY DEPT Social History Tobacco Use Types Packs/Day Years [...] encounter Miscellaneous Notes * Telephone Encounter - Cici Tanner CMA - 01/02/2018 10:06 AM EDT ----- Message from Yossi Morales APRN sent at 12/25/2017 3:19 PM EDT ----- Regarding: RE: prior authorization Ok try qd. But I believe we have. Check chart. ----- Message ----- From: Cici Tanner CMA Sent: 12/25/2017 10:09 AM To: Yossi Morales APRN Subject: prior authorization Per insurance new guidelines: Gastroesophageal Reflux Disease (GERD) - If member has had an adequate trial (e.g. 8 weeks) of standard once daily dosing for GERD, twice daily dosing may be approved. Note: Approval of twice daily dosing for GERD is limited to 12 weeks. For continuation after 12 weeks, there must be a documented attempt to taper to once daily dosing of a PPI with an adjunctive H2 Kathy. The dosing of long-term PPI's should be periodically re-evaluated so that the lowest effective dose can be prescribed to manage the condition. The medication in question is pantoprazole BID documented in this encounter Plan of Treatment Not on file documented as of this encounter Visit Diagnoses Not on filedocumented in this encounter Care Teams Studio Designer Relationship Specialty Start Date End Date Shashi Verma PA [address] [place] [address] PCP - General Family Medicine 04/06/16 01/14/20 documented as of this encounter
--- OUTSIDE RECORDS SUMMARY | 2024-01-10 02:03 | XMS_ITS | Encounter Summary ---
Author Organization [facility] [place] [address] Care Team Providers Care Documentation Coordinator Name Role Phone Shashi Verma Primary Care Provider [phone]- [phone] Encounter Details Date Type Department Care Team (Late st Contact Info) Description 01/18/2018 Orders [place] [phone] Negin Vick Social History Tobacco Use Types Packs/Day Years [...] on filedocumented in this encounter Care Teams Documentation Coordinator Relationship Specialty Start Date End Date Shashi Verma PA [address] [place] [address] PCP - General Family Medicine 04/06/16 01/14/20 documented as of this encounter
--- OUTSIDE RECORDS SUMMARY | 2024-01-10 02:03 | XMS_ITS | Encounter Summary ---
[place] [address] Care Team Providers Care Textile Cutting Machine Operator Name Role Phone Gina Morales MD Primary Care Provider [phone] Reason for Visit * Reason Onset Date Comments Results 09/21/2015 Encounter Details Date Type Department Care Team ([facility] st Contact Info) Description 09/21/2015 Telephone [place] [phone] Terence Fountain RN Results Social History Tobacco Use Types [...] Telephone Encounter - Terence Fountain RN - 09/21/2015 11:36 AM EDT Per Yossi Morales: Please make sure pt is taking qd ppi. ? If not effective we will need to consider bid. ? She has lymphocytic esophagitis. ? We consider treating for gerd first ? If continued sx we consider food allergies and refer to allergy Left patient message to call clinic to discuss results documented in this encounter Plan of Treatment Not on file documented as of this encounter Visit Diagnoses Not on filedocumented in this encounter Care Teams Textile Cutting Machine Operator Relationship Specialty Start Date End Date Gina Morales MD [facility] [address] [place] [address] [place] [address] PCP - General 01/29/14 04/05/16 documented as of this encounter
--- OUTSIDE RECORDS SUMMARY | 2024-01-10 02:03 | XMS_ITS | Encounter Summary ---
Author Organization [facility] Address [facility] [place] [address] Care Team Providers Care Financial Reporting Director Name Role Phone Gina Morales MD Primary Care Provider [phone] Reason for Visit * Auth/Cert Specialty Diagnoses / Procedures Referred By Yomi t Referred To Contact Diagnoses gerd Procedures PRO UPPER GI ENDOSCOPY, DIAGNOSTIC EGD, UPPER GI ENDOSCOPY Referral ID Status Reason Start Date Expiration Date Visits Re quested Visits Authorized [id number] 1 1 Encounter Details Date Type Department Care Team (Late st Contact Info) Description 09/03/2015 11:30 AM EDT - 09/03/2015 12:00 PM EDT [place] [phone] Kain Kimball MD [facility] [place] [address] EGD WITH BIOPSY (WRVU 2.39) Social History Tobacco Use Types Packs/Day Years [...] Sign Reading Time Taken Comments Blood Pressure 129/79 09/03/2015 12:29 PM EDT Pulse 63 09/03/2015 12:29 PM EDT Temperature - - Respiratory Rate 18 09/03/2015 12:29 PM EDT Oxygen Saturation 93% 09/03/2015 12:29 PM EDT Inhaled Oxygen Concentration - - Weight 108.9 kg (240 lb) 09/03/2015 10:43 AM EDT Height 165.1 cm (5' 5) 09/03/2015 10:43 AM EDT Body Mass Index 39.94 09/03/2015 10:43 AM EDT documented in this encounter Discharge Instructions * Discharge Instructions* Kia King RN - 09/03/2015 12:26 PM EDT UPPER GI ENDOSCOPY WHAT TO EXPECT AFTER THE PROCEDURE After the test you may feel a little more gassy or bloated than usual, this is normal. ACTIVITY Because of the sedation that you received your judgement and reaction time are affected. Go home and rest quietly for the remainder of the day. You may resume your normal activities tomorrow. Change from one position to the next slowly. You may lose your balance unexpectedly. Be careful on stairs, as you may be unsteady on your feet. FOR THE NEXT [address] OR OPERATE ANY MACHINERY DO NOT DRINK ALCOHOLIC BEVERAGES DO NOT SIGN LEGAL DOCUMENTS If you are a smoker: DO NOT SMOKE WHILE YOU ARE ALONE Diet Start by eating small portions of foods that ordinarily will not upset your stomach. Be gentle withwhat you choose to start with. Drink plenty of fluids ( unless otherwise told not to) Medications You may have a mild sore throat. Ice chips, popsicles, over the counter throat lozenges or spray may help numb your throat. This procedure should not cause a fever. IV SITE-- slight redness or tenderness is normal, you can use warm compresses if you get concerned.If the tenderness +/or redness increases or foul drainage and a red streak occurs, please contact your PCP immediately. WHEN SHOULD YOU CALL FOR HELP? Call 911 anytime you think that you need emergency care. For example, call if: You passed out (lost consciousness). You cough up blood. You vomit blood or what looks like coffee grounds. You pass maroon or very bloody stools. Call your healthcare provider or seek immediate medical attention if: You have trouble swallowing. You have belly pain. Your stools are black or tarlike or have streaks of blood. You are sick to your stomach or cannot keep fluids down. Watch closely for changes in your health, and be sure to contact your doctor IF Your throat still hurts after a day or two You do not get better as expected. Who to call Same Day Endoscopy [phone] [id number] M-F Otherwise contact [phone] and ask to speak to the light armored vehicle officer wildfire prevention specialist. Follow-up care is a pena part of your treatment and safety. Be sure to make and go to all appointments, and call your doctor if you are having problems. Instructions have been reviewed and patient expresses understanding. documented in this encounter Medications at Time of Discharge [...] daily. 06/07/2017 documented as of this encounter H&P Notes * Lorrie Dickerson MD - 09/03/2015 11:32 AM EDT Gastroenterology & Hepatology Pre-Procedure History and Physical Procedure: EGD Indication: Dysphagia (solid/liquid) long standing GERD on pantoprazole 40mg daily with at times breakthrough symptoms. Patient Active Problem List Diagnosis Code ??? Preventative health care Z00.00 ??? History of uterine prolapse Z87.42 ??? Urinary incontinence, mixed N39.46 ??? Muscle weakness M62.81 ??? Dyspareunia, female N94.1 ??? Fecal incontinence R15.9 ??? Urinary retention with incomplete bladder emptying R33.9 ??? Gastroesophageal reflux K21.9 ??? IBS (irritable bowel syndrome) K58.9 Medications: Reviewed in EDH Allergies Allergen Reactions ??? Oxycontin [Oxycodone] Itching ??? Valium [Diazepam] Other (See Comments) makes me depressed Social History/Family History: Reviewed in EDH. No changes Exam: Filed Vitals: 09/03/15 1043 BP: 123/68 Pulse: 62 Resp: 18 GEN: NAD, AAOX3 HEENT: NC/AT dryMM, anicteric Chest: CTAB Heart: RRR, nl s1, s2 Abdomen: normal bowel sounds, soft, non tender Assessment and Plan: Proceed with EGD: ASA Grade: ASA 2 - Patient with mild systemic disease with no functional limitations Sedation plan: Moderate Conscious sedation Risks and benefits of the procedure were discussed with the patient. Consent has been signed. Lorrie Dickerson MD Gastroenterology Fellow documented in this encounter Plan of Treatment Not on file documented as of this encounter Procedures Procedure Name Priority Date/Time Associated Diagnosis Comments SURGICAL PATHOLOGY REPORT Routine 09/03/2015 12:17 PM EDT SPECIMEN TO PATHOLOGY Routine 09/03/2015 12:17 PM EDT SPECIMEN TO PATHOLOGY Routine 09/03/2015 12:17 PM EDT SPECIMEN TO PATHOLOGY Routine 09/03/2015 12:17 PM EDT EGD WITH BIOPSY (WRVU 2.39) 09/03/2015 12:02 PM EDT Gastroesophageal reflux disease, esophagitis presence not specified UPPER GI ENDOSCOPY Routine 09/03/2015 11 :56 AM EDT documented in this encounter Results * Surgical Pathology Report (09/03/2015 12:17 PM EDT) Final Diagnosis [id number] ? Location: 4T; [facility]; A The signing pathologist has (i) examined the relevant preparation(s) for the specimen(s) and (ii) rendered or confirmed the diagnosis(es). . ?Surgical Pathology DIAGNOSIS A - Stomach, ??biopsy: - Antrum-type mucosa with reactive gastropathy. - Body/fundic-type mucosa, negative for diagnostic abnormality. B - Duodenum, ??biopsy: - Duodenal mucosa, negative for diagnostic abnormality. C - Esophagus, ??biopsy: - Lymphocytic esophagitis (see Note). Note: Immunostaining shows that intraepithelial CD8-positive T-cells outnumber CD4- positive T-cells. ? Increased intraepithelial lymphocytes with CD8 T-cell predominance have been reported in association with reflux esophagitis and motility disorders. 09/03/15 AAY 09/08/15 Verified by: ? Tiburcio Salcedo MD ?Pathologist ?(Electronic Signature) The attending pathologist whose signature appears on this report has reviewed all diagnostic slides and has edited the gross and/or microscopic portion of the report in rendering the final pathologic diagnosis. ADDITIONAL STUDIES Immunohistochemistry Studies: Formalin-fixed, paraffin-embedded tissue sections are studied using the polymer technique with appropriate positive and negative controls. ?These IHC studies provide the pathologist with adjunctive diagnostic information. Antibody specificity has been verified by testing antibodies on a series of in-house tissues with known immunohistochemical performance characteristics. The clinical interpretation of any antibody positive staining or its absence is evaluated within the context of clinical presentation, morphology, histopathological criteria and other diagnostic tests. Block ? Antibody ?Result (Positive/Negative) C1 ? CD4, CD8 ? see note. CLINICAL INFORMATION Specimen Submitted: A - Bx of the stomach B - Bx of the duodenum C - bx of esophagus Clinical History: Patient with dyspepsia and dysphagia, normal EGD Clinical Diagnosis: Same SPECIMEN PROCESSING A - Labeled/Fixative: BX of the stomach, formalin. Quantity/Size: Six, ranging from 0.2-0.5 cm. . SPECIMEN PROCESSING Tissue Description: ??Soft, briones tissues . Sections/Processing: (T2) B - Labeled/Fixative: BX of the duodenum, formalin. Quantity/Size: Four, ranging from 0.1-0.3 cm. Tissue Description: ??Soft, briones tissues . Sections/Processing: (T1) C - Labeled/Fixative: BX of esophagus, formalin. Quantity/Size: Four, ranging from 0.3-0.6 cm. Tissue Description: ??Soft, white tissues . Sections/Processing: (T1) ??aml 09/08/2015 1:56 PM EDT [facility] GI Biopsy 09/03/2015 12:1 7 PM EDT 09/03/2015 12:17 PM EDT GI Biopsy 09/03/2015 12:1 7 PM EDT 09/03/2015 12:17 PM EDT GI Biopsy 09/03/2015 12:1 7 PM EDT 09/03/2015 12:17 PM EDT Kain Kimball MD PATHOLOGY/CYTOLOGY O RDERAGERALDO [facility] [place] [address] * Specimen to Pathology (surgical or derm) (09/03/2015 12:17 PM EDT) AP Specimen 09/03/2015 12:1 7 PM EDT 09/03/2015 12:17 PM EDT Narrative [facility] - 09/03/2015 12:17 PM EDT Specimen requisition ordered. ??Separate Pathology report to follow Kain Kimball MD PATHOLOGY/CYTOLOGY O ABBIE Performing Organization Address [facility] [address]/[place] [address] * Specimen to Pathology (surgical or derm) (09/03/2015 12:17 PM EDT) AP Specimen 09/03/2015 12:1 7 PM EDT 09/03/2015 12:17 PM EDT Narrative [facility] - 09/03/2015 12:17 PM EDT Specimen requisition ordered. ??Separate Pathology report to follow Kain Kimball MD PATHOLOGY/CYTOLOGY O ABBIE Performing Organization Address [facility] [address]/[facility] [place] [address] * Specimen to Pathology (surgical or derm) (09/03/2015 12:17 PM EDT) AP Specimen 09/03/2015 12:1 7 PM EDT 09/03/2015 12:17 PM EDT Narrative [facility] - 09/03/2015 12:17 PM EDT Specimen requisition ordered. ??Separate Pathology report to follow Kain Kimball MD PATHOLOGY/CYTOLOGY O ABBIE Performing Organization Address [facility] [address]/[facility] [place] [address] * UPPER GI ENDOSCOPY (09/03/2015 11:56 AM EDT) UPPER GI ENDOSCOPY [facility] Endoscopy Patient Name: Shobha Ramírez ? Procedure Date: 09/03/2015 11:56 AM ? Date of : 1960 ? Age: 55 ? Order #: [id number] ? Procedure: ? Upper GI endoscopy Indications: ? Dyspepsia, Dysphagia Providers: ? Kain Kimball MD, Lorrie ? MD Jayla, Danielle Turner, ? Nelly John Referring : ?Gina Morales MD, Yossi Morales MD Medicines: ? Midazolam 4 mg IV, Fentanyl 150 ? micrograms IV Complications: ? No immediate complications. Procedure: ? The procedure, indications, benefits, ? risks and alternatives were explained ? to the patient. Specifically ? discussed were potential ? complications including, but not ? limited to, bleeding, perforation, ? infection, missing a cancer, and ? adverse medication reactions. The ? Endoscope was introduced through the ? mouth, and advanced to the third part ? of duodenum. The patient tolerated ? the procedure well. The Endoscope was ? introduced through the and advanced ? to the. The patient tolerated the ? procedure well. The upper GI ? endoscopy was accomplished without ? difficulty. The patient tolerated the ? procedure well. ? Findings: ? The examined esophagus was normal. Biopsies were ? taken with a cold forceps for histology. ? A small hiatus hernia was present from 38-40 cm. ? The Z-line was regular and was found 38 cm from the ? incisors. ? The entire examined stomach was normal. Biopsies were ? taken with a cold forceps for Helicobacter pylori ? testing. ? The examined duodenum was normal. Biopsies for ? histology were taken with a cold forceps for for ? evaluation of celiac disease. ? Impression: ?- Normal esophagus. Biopsied. ? - Small hiatus hernia. ? - Z-line regular, 38 cm from the ? incisors. ? - Normal stomach. Biopsied. ? - Normal examined duodenum. Biopsied. Recommendation: ?- Await pathology results. ? Procedure Code(s): ?? --- Professional --- ? 35613, Esophagogastroduo denoscopy, ? flexible, transoral; with biopsy, ? single or multiple CPT copyright 2014 [employer]. All rights reserved. The codes documented in this report are preliminary and upon air hammer operator review may be revised to meet current compliance requirements. __ Kain Kimball MD 09/03/2015 12:23 PM This report has been signed electronically. Number of Addenda: 0 Note Initiated On: 09/03/2015 11:56 AM PROVATION 09/03/2015 11:5 6 AM EDT Gina Morales MD GENERAL SURGICAL ORD ERABLES PROVATION documented in this encounter Visit Diagnoses Diagnosis Gastroesophageal reflux disease, esophagitis presence not specified documented in this encounter Administered Medications Inactive Administered Medications - up to 3 most recent administrations Medication Order MAR Action Action Date Dose Rate Site fentaNYL 50 mcg/mL multi-dose injection ONCE PRN, Starting on Geri 09/03/15 at 1202, Until Geri 09/03/15 at 1239, Intra-Operative (Intra-Procedure), Routine Given 09/03/2015 12:08 PM EDT 50 mcg Right Arm Given 09/03/2015 12:05 PM EDT 50 mcg R ight Arm Given 09/03/2015 12:02 PM EDT 50 mcg R ight Arm lactated ringers infusion 100 mL/hr, Intravenous, CONTINUOUS, Starting on Geri 09/03/15 at 1100, Until Geri 09/03/15 at 1239, Endoscopy (Day of Procedure) New Bag 09/03/2015 11:00 AM EDT 100 mL/hr 100 mL/hr midazolam (PF) (VERSED) 1 mg/mL multi-dose injection ONCE PRN, Starting on Geri 4/7/16 at 1202, Until Geri 16 at 1239, Intra-Operative (Intra-Procedure), Routine Given 09/03/2015 12:08 PM EDT 1 mg Right Arm Given 09/03/2015 12:05 PM EDT 1 mg R ight Arm Given 09/03/2015 12:02 PM EDT 2 mg R ight Arm documented in this encounter Active and Recently Administered Medications Times are shown in EDT. Continuous Medication Order 09/01/2015 09/02/2015 09/03/2015 lactated ringers infusion (CANCELED) 100 mL/hr, Intravenous, CONTINUOUS, Starting on Geri 09/03/15 at 1100, Until Geri 16 at 1239, Endoscopy (Day of Procedure) 1100 (New Bag - Prov ider: Shira Avalos RN) PRN Medication Order 09/01/2015 09/02/2015 09/03/2015 fentaNYL 50 mcg/mL multi-dose injection (CANCELED) ONCE PRN, Starting on Geri 4/16 at 1202, Until Geri 4/16 at 1239, Intra-Operative (Intra-Procedure), Routine 1202 (Given - Provid er: Danielle Turner RN)1205 (Given - Provider: Danielle Turner RN)1208 (Given - Provider: Danielle Turner RN) midazolam (PF) (VERSED) 1 mg/mL multi-dose injection (CANCELED) ONCE PRN, Starting on Geri 4/16 at 1202, Until Geri 4716 at 1239, Intra-Operative (Intra-Procedure), Routine 1202 (Given - Provid er: Danielle Turner RN)1205 (Given - Provider: Danielle Turner RN)1208 (Given - Provider: Danielle Turner RN) documented in this encounter Care Teams Financial Reporting Director Relationship Specialty Start Date End Date Gina Morales MD HOSPITALIST SERVICES [address] [place] [address] [place] [address] PCP - General 01/29/14 04/05/16 documented as of this encounter
--- OUTSIDE RECORDS SUMMARY | 2024-01-10 02:03 | XMS_ITS | Encounter Summary ---
Author Organization [facility] [place] [address] Care Team Providers Care Booth Cashier Name Role Phone Gina Morales MD Primary Care Provider [phone] Reason for Visit * Reason Onset Date Comments Follow-up 04/06/2011 Encounter Details Date Type Department Care Team (Late st Contact Info) Description 04/06/2011 Telephone Obstetrics [place] [phone] Lela Jaramillo, RN Follow-up Social History Tobacco Use Types Packs/Day Years [...] encounter Miscellaneous Notes * Telephone Encounter - Delmer Velasco MD - 04/06/2011 4:04 PM EST It would be good to check a PVR to be sure she is not retaining. * Telephone Encounter - Lela Jaramillo RN - 04/06/2011 3:59 PM EST TELEPHONE NOTE Caller: Pt Reason for call: Pt had surgery on 03/28/11 with . Pt calls today stating she had a regular appt with her PCP and was told she had a temperate. Pt states they took a urine sample because she has been having urinary frequency and sometimes feels she cannot empty. Pt states a vaginal examwas done but appeared normal except very tender to touch. Pt was placed on Bactrim DS 1 tab BID x7days. Pt asked if I would call the [facility]. Plan/Instructions: Spoke with Jef (nurse at [facility] in [facility]). Pt had a temperature of 37.9, urine dip was positive for leukos, urine sent for culture. PV was not checked. Will review with . Pt to call clinic with any questions/concerns. documented in this encounter Plan of Treatment Not on file documented as of this encounter Visit Diagnoses Not on filedocumented in this encounter Care Teams Booth Cashier Relationship Specialty Start Date End Date Gina Morales MD HOSPITALIST SERVICES [address] [place] [address] [place] [address] PCP - General 01/18/11 01/27/14 documented as of this encounter
--- OUTSIDE RECORDS SUMMARY | 2024-01-10 02:03 | XMS_ITS | Encounter Summary ---
Author Organization [facility] [place] [address] Care Team Providers Care Chute Greaser Name Role Phone Gina Morales MD Primary Care Provider [phone] Reason for Visit * Reason Onset Date Comments Results 02/23/2015 Encounter Details Date Type Department Care Team (Late st Contact Info) Description 02/23/2015 Telephone Obstetrics [place] [phone] Bindu Hodges, RN Results Social History Tobacco Use Types [...] encounter Miscellaneous Notes * Telephone Encounter - Bindu Hodges, RN - 02/23/2015 9:23 AM EDT .TELEPHONE NOTE Caller: Patient Reason for call: Patient is calling in with her results of her bladder diary. She charted voids andcathed residual for a week am and pm. Plan/Instructions: Bladder Diary results given: Void amount Cath amount 02/13 AM 500 ml Bloody discharge in tube PM 4001/2 ml 2 ml 02/14 AM 18 ml Drops PM 200 ml 0 02/16 AM 18 ml 0 PM 9ml 0 02/17 AM 600ml 0 PM 0 0 02/18 AM 18ml 0 PM 11 ml 0 02/19 AM 10ml 0 PM 40 ml 0 02/20 AM 101/2 ml 0 PM 10 ml 0 02/21 AM 600 ml 0 PM 200 ml 0 02/22 AM 800 ml 0 documented in this encounter Plan of Treatment Not on file documented as of this encounter Visit Diagnoses Not on filedocumented in this encounter Care Teams Chute Greaser Relationship Specialty Start Date End Date Gina Morales MD HOSPITALIST SERVICES [address] [place] [address] [place] [address] PCP - General 01/29/14 04/05/16 documented as of this encounter
--- OUTSIDE RECORDS SUMMARY | 2024-01-10 02:03 | XMS_ITS | Encounter Summary ---
Author Organization [facility] [place] [address] Care Team Providers Care It Application Development Manager Name Role Phone Shashi Verma Primary Care Provider [phone] Reason for Visit * Reason Onset Date Comments Prior Authorization 07/17/2017 Encounter Details Date Type Department Care Team ([facility] st Contact Info) Description 07/17/2017 Telephone [place] [phone] Cici Tanner CMA GASTROENTEROLOGY DEPT Prior Authorization Social History Tobacco Use Types Packs/Day Years [...] Telephone Encounter - Cici Tanner CMA - 07/17/2017 2:48 PM EST Insurance: [place] Medicaid Insurance phone: [phone] Medication: Pantoprazole 40 mg BID Q:60/30 Medication tried and failed: pantoprazole QD, omeprazole, esomeprazole Decision: approved Start: 07/17/2017 End: 10/14/2017 * Effective 07/07/2017: Approvals of BID dosing for GERD will now be limited to 12 weeks* Tracking number: [id number] documented in this encounter Plan of Treatment Not on file documented as of this encounter Visit Diagnoses Not on filedocumented in this encounter Care Teams It Application Development Manager Relationship Specialty Start Date End Date Shashi Verma PA [address] [place] [address] PCP - General Family Medicine 04/06/16 01/14/20 documented as of this encounter
--- OUTSIDE RECORDS SUMMARY | 2024-01-10 02:03 | XMS_ITS | Encounter Summary ---
Author Organization [facility] [place] [address] Care Team Providers Care Home Health Lvn Name Role Phone Gina Morales MD Primary Care Provider [phone] Reason for Visit * Reason Onset Date Comments Follow-up 02/24/2015 Encounter Details Date Type Department Care Team (Late st Contact Info) Description 02/24/2015 Telephone Obstetrics [place] [phone] Lela Jaramillo, RN Follow-up Social History Tobacco [...] encounter Miscellaneous Notes * Telephone Encounter - Lela Jaramillo RN - 02/24/2015 3:25 PM EDT Pt can stop cathing per . documented in this encounter Plan of Treatment Not on file documented as of this encounter Visit Diagnoses Not on filedocumented in this encounter Care Teams Home Health Lvn Relationship Specialty Start Date End Date Gina Morales MD HOSPITALIST SERVICES [address] [place] [address] [place] [id number] PCP - General 01/29/14 04/05/16 documented as of this encounter
--- OUTSIDE RECORDS SUMMARY | 2024-01-10 02:03 | XMS_ITS | Encounter Summary ---
Author Organization [facility] Address [facility] [place] [address] Care Team Providers Care Pet Care Technician Name Role Phone Gina Morales MD Primary Care Provider [phone] Reason for Visit * Reason Comments Procedure Urodynamics Study Encounter Details Date Type Department Care Team (Latest Contact Info) Description 09/24/2013 2:00 PM EDT Procedure visit Obstetrics [place] [address] Casey Velasco MD [facility] DR OBSTETRICS [place] [address] Urinary retention with incomplete bladder emptying (Primary Dx); Urinary incontinence, urge Discharge Disposition: Home Social History Tobacco Use [...] Sign Reading Time Taken Comments Blood Pressure 140/82 09/24/2013 2:02 PM EDT Pulse 68 09/24/2013 2:02 PM EDT Temperature - - Respiratory Rate - - Oxygen Saturation - - Inhaled Oxygen Concentration - - Weight - - Height - - Body Mass Index - - documented in this encounter Patient Instructions * Patient Instructions* Casey Velasco MD - 09/24/2013 3:16 PM EDT Many bodily functions are influenced by habit. We learn where and how to urinate (void, pee, empty your bladder) from habits taught to us by our parents. Over time our habits can change and become bad. Using the same techniques we used to learn good habits can sometimes help us correct these bad habits. This is certainly true of the bladder. The object is for you to re-establish your brains control over bladder function. To change your bladder control habit, start by urinating every 45 minutes (NO MATTER WHAT) during the day. You must urinate by the clock whether you need to or not. At night only urinate as the need arises - no need to be on the rigid schedule. In the morning you must resume the schedule. For example, if you are scheduled to urinate at 6:30 AM but at 6:10 AM you have a strong urge to urinate, youmust try and wait until 6:30 AM to urinate EVEN IF YOU LEAK URINE BEFORE THE SCHEDULED TIME. When you are able to follow this schedule for seven days without losing control of your bladder, increase the interval between urinations by 15 minutes. You will keep increasing your time interval asyou succeed in re-establishing bladder control until you can comfortably urinate only every 2-3 hours. This requires a lot of discipline and unfortunately time. YOU CAN DO IT! Bladder training is as good and by some studies BETTER than medications! There are NO medication side effects and lessons learned could be useful no matter what other bladder interventions are being planned or implemented. WEEK 1 Try to urinate every hour WEEK 2 Try to urinate every 1 hour, 15 minutes WEEK 3 Try to urinate every 1 hour, 30 minutes WEEK 4 Try to urinate every 1 hour 45 minutes WEEK 5 Try to urinate every 2 hours Keep going try try to go every 3 hours. ?? For hot flushes, try taking Premarin tablets, once daily. Call if you have side effects of severe breast tenderness, pain in the legs, shortness of breath documented in this encounter Progress Notes * Casey Velasco MD - 09/24/2013 3:21 PM EDT Female Pelvic Medicine and Reconstructive Surgery @ [facility] Urodynamic Procedure Note Patient name: Shobha Ramírez Final Impression: ?? Prior incomplete emptying (PVR = 230 mL on 08/22/13 exam) and prior sling. Today, emptying normally with normal uroflowmetry and voiding pressure flow study. ?? Urge urinary incontinence by symptoms, diary, but no detrusor overactivity on urodynamic testing. ?? Baseline constipation. Recommendations: ?? For now, I recommended starting bladder drill training. She has worked on pelvic floor exercisesin the past with PT near [place]. ?? I would be reluctant to start an anticholinergic agent based on her incomplete emptying on priorevaluation and constipation history. INDICATIONS FOR URODYNAMICS: (x) Voiding problems (x) Urinary incontinence ( ) Pelvic organ prolapse ( ) Other: Review of Bladder Diary Dates diary completed: not recorded Volume intake: 591-1419 mL Volume output: 3105 - 4051 Number of daytime voids: 7-9 Number of nocturia events: 2-3 Functional bladder capacity: 768 mL Nocturia Index: Number of leakage events per day: one day, small volume charted (nighttime) Multi-channel urodynamic evaluation procedure was verbally explained to the patient including risksof possible urinary tract infection and benefit of information from the testing. Verbal consent obtained. UROFLOWMETRY: Total Volume Voided: 144 cc Qmax: 13.8 cc/sec Qav.4 cc/sec Post void residual: 35 cc (obtained via catheter) URINE ANALYSIS: trace for protein CYSTOMETROGRAM: 7 Yoruba T-DOC catheter was inserted into the bladder. A 7 Yoruba T-DOC catheter was placed in the vagina/rectum for measurement of abdominal pressures. Filling was performed via a 7 Yoruba T-DOC catheter in the sitting position at a rate of 50cc/min. . Detrusor pressure at 0cc: 0 cm H2O S1-First sensation: 20 cc S2-First desire: 126 cc S3-Strong desire: 363 cc S4- Maximum cystometric capacity: 458 cc Detrusor pressure at maximum cystometric capacity: 18 cm H2O EMG: stable during filling; appropriate increase with cough, Valsalva; some increased activity on initial voiding attempt, then relaxation Uninhibited detrusor contractions associated with urge: no Uninhibited detrusor contractions associated with urinary leakage : no Leakage seen with stress maneuvers (valsalva/cough): no Leak point pressure testing performed at 200 cc at 50cc increments and at capacity. Maneuver Leak? Volume (mL) Pressure Sitting w/o prolapse support no 200, 300 147-209 cm H2O (Pves) Sitting with prolapse support (scopette) no 300 102-179 cm H2O (Pves) Urethral catheter out w/o prolapse support no 300 176-192 cm H2O (Pabd) Urethral catheter out with prolapse support (scopette) no 300 185-207 cm H2O (Pabd) Urethral Pressure Profile: The urethral catheter was withdrawn until the peak urethral pressure was measured (83 cm H20). The maximum urethral closure pressure (mUCP) was 49 cm H20. PRESSURE-FLOW VOIDING STUDY: Voided: 434 cc Maximum flow rate (Qmax): 25 cc/sec Detrusor pressure (Pdet) at Qmax: 31 cm H2O Comments: ( ) Abdominal straining with void ( ) Obstruction by Blaivis / Groutz nomogram ( ) Other: Symptom diagnosis: Storage symptoms ( ) None ( ) Increased daytime frequency ( ) Nocturia ( ) Urgency ( ) Stress urinary incontinence (x) Urge urinary incontinence ( ) Mixed urinary incontinence ( ) Nocturnal enuresis ( ) Continuous urinary incontinence Voiding symptoms ( ) None (x) Slow stream ( ) Splitting/spraying ( ) Straining (muscular effort to initiate, maintain or improve flow) ( ) Feeling of incomplete emptying Other Diagnoses: ( ) Urodynamic Diagnosis: Filling Phase Diagnoses: Sensation (x ) Normal bladder sensation ( ) Increased bladder sensation (First sensation < 20cc) ( ) Reduced bladder sensation (FS > 250cc & First desire > 400cc & Strong desire >600cc) ( ) Absent bladder sensation (NO sensation to void with a volume > 600cc) ( ) Urgency Filling Phase Diagnosis: Detrusor Function (x) Normal filling detrusor function ( ) Detrusor overactivity ( ) Phasic detrusor overactivity ( ) Terminal detrusor overactivity ( ) Detrusor overactivity with incontinence Filling Phase Diagnosis: Urethral closure mechanism (x) Normal filling phase ( ) Urodynamic stress urinary incontinence Voiding Phase Diagnoses: Detrusor function during voiding (x) Normal voiding detrusor function ( ) Detrusor underactivity ( ) Acontractile detrusor Voiding Phase Diagnoses: Urethral function during voiding (If EMG not done, may be less specific source) (x) Normal urethral function during voiding ( ) Bladder outlet obstruction ( ) Dysfunctional voiding ( ) Detrusor sphincter dyssnergia ( ) Non-relaxing urethral sphincter obstruction Autumn Crocker LPN assisted in this procedure. I was present for the pertinent portions of the urodynamic testing and fully reviewed and edited the results. CASEY VELASCO MD Division of Female Pelvic Medicine and Reconstructive Surgery documented in this encounter Procedure Notes * Provider, Scanning - 10/02/2013 1:24 PM EDTAssociated Order(s): SCAN DOC: UROLOGY documented in this encounter Plan of Treatment Not on file documented as of this encounter Procedures Procedure Name Priority Date/Time Associated Diagnosis Comments UROLOGY SCAN 10/02/2013 1:24 PM EDT POCT URINE DIPSTICK Routine 09/24/2013 Urinary retention with incomplete bladder emptying documented in this encounter Results * SCAN DOC: UROLOGY (10/02/2013 1:24 PM EDT) Narrative 10/02/2013 1:24 PM EDT Procedure Note Provider, Scanning - 10/02/2013 1:24 PM EDT Scanning Provider MEDIA MGR SCAN EXT O RDR/RSLT * POCT urine dipstick (09/24/2013) POC Sp [place] 1.002 - 1.030 POC pH, UA 5.0 - 8.5 POC Leuk, UA Neg. Negative - Negative POC Nitrite, UA Neg. Negative - Negative POC Protein, UA Trace Negative - Negative mg/dL POC Glucose, UA [...] incomplete bladder emptying- Primary Incomplete bladder emptying Urinary incontinence, urge Urge incontinence documented in this encounter Care Teams Pet Care Technician Relationship Specialty Start Date End Date Gina Morales MD [facility] [address] [place] [address] [place] [address] PCP - General 01/18/11 01/27/14 documented as of this encounter
--- OUTSIDE RECORDS SUMMARY | 2024-01-10 02:03 | XMS_ITS | Encounter Summary ---
Author Organization [facility] [place] [address] Care Team Providers Care Computer Architect Name Role Phone Shashi Verma Primary Care Provider [phone] Reason for Referral * Diagnostic Test (Routine) Specialty Diagnoses / Procedures Referred By Contac t Referred To Contact Radiology Diagnoses Pelvic floor dysfunction Procedures MRI Pelvis Soft Tissue (Gi Gu Product Applications Scientist)WO Contrast MRI Pelvis Soft Tissue(Gi Gu Product Applications Scientist)WWO Contrast Yossi Moralse APRN [facility] [place] [address] [place] [address] Referral ID Status Reason Start Date Expiration Date V isits Requested Visits Authorized [id number] Specialty Service Requested 04/12/2016 07/11/2016 1 1 Reason for Visit * Diagnostic Test (Routine) Specialty Diagnoses / Procedures Referred By Contac t Referred To Contact Radiology Diagnoses Pelvic floor dysfunction Procedures MRI Pelvis Soft Tissue (Gi Gu Product Applications Scientist)WO Contrast MRI Pelvis Soft Tissue(Gi Gu Product Applications Scientist)WWO Contrast Yossi Morales [facility] [place] [address] [place] [address] Referral ID Status Reason Start Date Expiration Date V isits Requested Visits Authorized [id number] Specialty Service Requested 04/12/2016 07/11/2016 1 1 Encounter Details Date Type Department Care Team (Latest Contact Info) Description 04/18/2016 12:55 PM EST - 04/18/2016 11:59 PM EST Hospital Encounter MRI at [facility] [place] [address] Erik Phillips MD [facility] DR [place] [address] Pelvic floor dysfunction Discharge Disposition: Home Social [...] 17 g by mouth daily. 595 g 11 03/23/2016 02/20/2017 levothyroxine (SYNTHROID) 50 mcg Tablet 0 06/04/2015 [...] needed. Reported on 06/24/2016 0 03/10/2015 11/01/2017 busPIRone (BUSPAR) 15 mg Tablet Take 15 [...] Diagnosis Comments MRI PELVIS SOFT TISSUE (GI GLUE SPREADING MACHINE OPERATOR) WO CONTRAST Routine 04/18/2016 2:33 PM EST Pelvic floor dysfunction documented in this encounter Results * MRI Pelvis Soft Tissue (Gi Gu Product Applications Scientist)WO Contrast (04/18/2016 2:33 PM EST) Anatomical Region Laterality Modality Pelvis Magnetic Resonan ce Impressions 04/18/2016 3:13 PM EST Anterior compartment: mild (2-4cm) descent. Urethral hypermobility with cystocele. Middle compartment: Normal (0-2cm). Posterior compartment: Marked (>6cm) descent. ??Rectocele, as above. ??No enterocele.Peritoneocele, as above. Rectal prolapse:Internal mucosal Narrative 04/18/2016 3:13 PM EST EXAMINATION: MRI PELVIS SOFT TISSUE (GI GLUE SPREADING MACHINE OPERATOR) WO CONTRAST CLINICAL HISTORY: pelvic mri with defecography COMPARISON: None TECHNIQUE: Noncontrast MRI of the pelvis was performed using defecography protocol. FINDINGS: T2 axial pelvis: Post hysterectomy change. Unremarkable appearance of the urinary bladder. No adenopathy or ascites. Asymmetric thinning of the inferior, and avulsion of the superior fibers of the puborectalis muscle is noted on the right with evidence of level 2 fascial disruption (series 2 image 21, 22). AT REST: Length of the urogenital hiatus (H line) 7cm. (normal <5-6cm) Levator plate inclination angle 29 degrees (normal <10-20 degrees) Anterior compartment: Vesicourethral junction: 0.8 cm above the pubococcygeal line. ??Urethra is oriented normally. Bladder base: 2cm above the pubococcygeus line. Medial compartment: Vaginal cuff: 4cm above the pubococcygeal line. ?? Posterior compartment: Anorectal junction 4cm below the pubococcygeal line. Anorectal angle: 135 degrees (normal 90-127) Enterocele: No. ??Sigmoidocele:No. Peritoneocele: No. Rectocele: ??No. Rectal prolapse: No STRAINING VIEWS: Length of the urogenital hiatus (H line) 8.2cm. (normal <5-6cm) Levator plate inclination angle 42 degrees (normal <10-20 degrees) Anterior compartment: Vesicourethral junction: 2.8cm below the pubococcygeal line. ??Rotation of the urethral axis 90 degrees (abnormal >45), consistent with urethral hypermobility. Bladder base: 3.3cm below the pubococcygeus line. Medial compartment: Vaginal cuff: 1cm below the pubococcygeal line. ?? Posterior compartment: Anorectal junction 7cm below the pubococcygeal line. Anorectal angle: 128 degrees (normal 90-127) Enterocele: No. ??Sigmoidocele:No. Peritoneocele: Fat dissecting between the posterior aspect of the vagina and the rectum extending down to the level of the introitus. Rectocele: ??Yes, 3 cm. Rectal prolapse: Internal mucosal Procedure Note Carlos Minor MD - 04/18/2016 EXAMINATION: MRI PELVIS SOFT TISSUE (GI GLUE SPREADING MACHINE OPERATOR) WO CONTRAST CLINICAL HISTORY: pelvic mri with defecography COMPARISON: None TECHNIQUE: Noncontrast MRI of the pelvis was performed usingdefecography protocol. FINDINGS: T2 axial pelvis: Post hysterectomy change. Unremarkable appearance ofthe urinary bladder. No adenopathy or ascites. Asymmetric thinning of theinferior, and avulsion of the superior fibers of the puborectalis muscle is noted onthe right with evidence of level 2 fascial disruption (series 2 image 21,22). AT REST: Length of the urogenital hiatus (H line) 7cm. (normal <5-6cm) Levator plate inclination angle 29 degrees (normal <10-20 degrees) Anterior compartment: Vesicourethral junction: 0.8 cm above the pubococcygeal line. Urethrais oriented normally. Bladder base: 2cm above the pubococcygeus line. Medial compartment: Vaginal cuff: 4cm above the pubococcygeal line. Posterior compartment: Anorectal junction 4cm below the pubococcygeal line. Anorectal angle: 135 degrees (normal 90-127) Enterocele: No. Sigmoidocele:No. Peritoneocele: No. Rectocele: No. Rectal prolapse: No STRAINING VIEWS: Length of the urogenital hiatus (H line) 8.2cm. (normal <5-6cm) Levator plate inclination angle 42 degrees (normal <10-20 degrees) Anterior compartment: Vesicourethral junction: 2.8cm below the pubococcygeal line. Rotation ofthe urethral axis 90 degrees (abnormal >45), consistent with urethralhypermobility. Bladder base: 3.3cm below the pubococcygeus line. Medial compartment: Vaginal cuff: 1cm below the pubococcygeal line. Posterior compartment: Anorectal junction 7cm below the pubococcygeal line. Anorectal angle: 128 degrees (normal 90-127) Enterocele: No. Sigmoidocele:No. Peritoneocele: Fat dissecting betweenthe posterior aspect of the vagina and the rectum extending down to the levelof the introitus. Rectocele: Yes, 3 cm. Rectal prolapse: Internal mucosal IMPRESSION Anterior compartment: mild (2-4cm) descent. Urethral hypermobility with cystocele. Middle compartment: Normal (0-2cm). Posterior compartment: Marked (>6cm) descent. Rectocele, as above. No enterocele.Peritoneocele, as above. Rectal prolapse:Internal mucosal Erik Phillips MD IMG MRI ORDERABLES documented in this encounter Visit Diagnoses Diagnosis Pelvic floor dysfunction Pelvic muscle wasting documented in this encounter Care Teams Computer Architect Relationship Specialty Start Date End Date Shashi Verma PA [address] [place] [address] PCP - General Family Medicine 04/06/16 01/14/20 documented as of this encounter
--- OUTSIDE RECORDS SUMMARY | 2024-01-10 02:03 | XMS_ITS | Encounter Summary ---
Author Organization [facility] Address [facility] [place] [address] Care Team Providers Care Aerospace Technician Name Role Phone Shashi Verma Primary Care Provider [phone] Reason for Visit * Reason Comments Bloated Encounter Details Date Type Department Care Team (Late st Contact Info) Description 06/24/2016 1:00 PM EST Tech [place] [address] Lc Murillo MD [facility] [address] Abdominal bloating Social History Tobacco Use Types Packs/Day Years [...] as of this encounter Progress Notes * Lc Murillo MD - 06/24/2016 1:00 PM EST Gastroenterology Breath Test Report Patient: Shobha Ramírez Date Of : 1960 PCP: TORI Mendoza Referring: Yossi Morales STUDY DATE: 06/24/2016 PROVIDER: LC MURILLO MD INDICATION: Abdominal bloating Evaluate for SIBO ppmH2 ppmCH4 CO2(f) Fasting Baseline: 44 10 4.3/1.27 Administer sugar: 15 mL Lactulose 90 mL H2O Sample Time ppmH2 ppmCH4 (f)CO2 1. 20 min 23 8 3.6/1.52 2. 40 min 17 8 3.6/1.57 3. 60 min 9 4 3.1/1.77 4. 80 min 20 9 3.0/1.83 5. 100 min 76 14 3.6/1.52 6. 120 min 97 14 4.0/1.37 7. 140 min 89 14 4.0/1.37 8. 160 min 75 13 3.9/1.41 9. 180 min 64 10 4.2/1.30 Interpretation: Clinical correlation required. 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 Elevated baseline hydrogen production drops after administration of lactulose which is not consistent with small intestinal bacterial overgrowth (SIBO) and suggests inadequate pre-test preparation (inadequate fasting). Subsequent delayed rise in hydrogen production is significant but occurs at greater than 80 minutes suggesting orocecal transit time of 80-100 minutes. Lc Murillo MD [place]astroenterology [place] [address] P: [phone] F: [phone] Copy: TORI Dawson documented in this encounter Plan of Treatment Not on file documented as of this encounter Visit Diagnoses Diagnosis Abdominal bloating Flatulence, eructation, and gas pain documented in this encounter Care Teams Aerospace Technician Relationship Specialty Start Date End Date Shashi Verma PA [address] [place] [address] PCP - General Family Medicine 04/06/16 01/14/20 documented as of this encounter
--- OUTSIDE RECORDS SUMMARY | 2024-01-10 02:03 | XMS_ITS | Encounter Summary ---
Author Organization [facility] Address [facility] [place] [address] Care Team Providers Care Rivet Passer Name Role Phone Gina Morales MD Primary Care Provider [phone] Reason for Visit * Reason Comments Urinary Incontinence Encounter Details Date Type Department Care Team (Late st Contact Info) Description 02/12/2015 2:45 PM EDT Follow-Up Obstetric[place] [address] Casey Velasco MD [facility] OBSTETRICS [place] [address] Unspecified urinary incontinence; Urinary incontinence, mixed; Fecal incontinence; Urinary retention with incomplete bladder emptying Discharge Disposition: Home Social History Tobacco Use [...] Sign Reading Time Taken Comments Blood Pressure 154/84 02/12/2015 2:18 PM EDT Pulse 64 02/12/2015 2:18 PM EDT Temperature - - Respiratory Rate - - Oxygen Saturation - - Inhaled Oxygen Concentration - - Weight 109.3 kg (241 lb) 02/12/2015 2:18 PM EDT Height 165.1 cm (5' 5) 02/12/2015 2:18 PM EDT Body Mass Index 40.1 02/12/2015 2:18 PM EDT documented in this encounter Progress Notes * Lela Jaramillo RN - 02/12/2015 4:20 PM EDT SELF CATH Shobha Ramírez taught to Self cath with Florence caths 14 fr. Pamphlets given and reviewed: Self Catheterization, [facility] Urinary Tract Infections and [facility] How to Clean Urinary Catheters. Pt also given two Mentorcaths 14fr. to practice with at home. Pt was able to return demonstrate theprocedure. She feels comfortable with her ability to self cath and has no questions at this time. She will call [phone] with questions or if she needs further teaching. * Casey Velasco MD - 02/12/2015 3:07 PM EDT Patient Active Problem List Diagnosis Code ??? Preventative health care V70.0 ??? History of uterine prolapse V13.29 ??? Urinary incontinence, mixed 788.33 ??? Muscle weakness 728.87 ??? Dyspareunia, female 625.0 SUBJECTIVE: Shobha Ramírez comes in today for urinary incontinence that is ongoing. She is having leaking with urgency and with stress events as detailed below. She underwent urodynamic testing on 09/24/13 with the following impression: Final Impression: ?? Prior incomplete emptying (PVR [...] floor exercisesin the past with PT near [place]. ?? I would be reluctant to start an anticholinergic agent based on her incomplete emptying on priorevaluation and constipation history. With her urodynamic testing, she had no stress incontinence or detrusor overactivity. Her PVR was 35 mL and she was able to void 434 mL with a peak flow rate of 25 mL /sec and a Pdet of 31 cm H20. She has also had fecal incontinence and at her visit in August,January,, we discussed options of sacral neuromodulation, which she declined. Bowels: Fecal incontinence, a few times per month. Bladder: Worse leaking with a bad cold. She also has leaking with urgency. She has some sense of incompletely emptying. Vagina: She notes some pressure, especially with sexual relations. She denies vaginal bleeding or discharge. Not using pads, but changes underwear 2-3 times / day OBJECTIVE: Blood pressure 154/84, pulse 64, height 165.1 cm (5' 5), weight 109.317 kg (241 lb), last menstrual period 01/27/2011. Results for orders placed or performed in visit on 02/12/15 POCT urine dipstick Result Value Ref Range POC Leuk, UA Neg. Negative - Negative POC Nitrite, UA Neg. Negative - Negative POC Blood, UA Neg. Negative - Negative jimbo/uL Bladder Scanner Result Value Ref Range Bladder Scan (mL) 175 mL PROCEDURE NOTE: Straight catheterization Straight catheterization was performed after verbal consent. The urethra was first prepped with Betadine and a 14 Fr Florence female catheter passed. PVR was 350 mL. General: Obese, in no distress. Wearing a mask today due to cold symptoms. Back: No CVAT Abdomen: obese, no organomegaly, masses or hernias. Non-tender. Pelvic: Normal external genitalia, including urethral meatus and perineum. Vagina: Posterior vaginal wall descends to the hymen. Good anterior & apical support, no sling erosion. Cervix: absent Bimanual: Uterus is absent; no appreciable adnexal masses or tenderness. Rectal deferred. ASSESSMENT: Shobha Ramírez is a 55 y.o. year old woman with: ?? Rectocele. ?? Fecal incontinence. ?? Urinary incontinence, mixed by symptoms but also with incomplete emptying and urinary retention.Urodynamic testing from 08/2013 with findings of normal voiding pressure-flow study. PLAN: ?? She agrees to try to learn clean intermittent self catheterization (CIC) today. She will check twice daily for the next week and then report her PVR's. ?? We discussed options of cutting the sling, which may exacerbate stress incontinence. We reviewedrisks of recurrent UTI's, worsening bladder detrusor function if she continues to retain urine. ?? We also discussed the option of sacral neuromodulation but she would need to learn CIC first to monitor retention. ?? If she decides on surgical intervention, we discussed that we could consider posterior colporrhaphy at the time. CASEY VELASCO MD Division of Female Pelvic Medicine & Reconstructive Surgery documented in this encounter Plan of Treatment Not on file documented as of this encounter Procedures Procedure Name Priority Date/Time Associated Diagnosis Comments BLADDER SCANNER Routine 02/12/2015 Urinary incontinence, mixed Urinary retention with incomplete bladder emptying POCT URINE DIPSTICK Routine 02/12/2015 Urinary incontinence, mixed Urinary retention with incomplete bladder emptying documented in this encounter Results * Bladder Scanner (02/12/2015) Bladder Scan (mL) 175 mL Casey Velasco MD URO PROC W/O RFL ORD ERABLES * POCT urine dipstick (02/12/2015) POC Leuk, UA Neg. Negative - Negative POC Nitrite, UA Neg. Negative - Negative POC Blood, UA Neg. Negative - Negative jimbo/uL Casey Velasco MD POINT OF CARE TEST O RDERABLES documented in this encounter Visit Diagnoses Diagnosis Unspecified urinary incontinence Urinary incontinence, mixed Mixed incontinence urge and stress (male)(female) Fecal incontinence Full incontinence of feces Urinary retention with incomplete bladder emptying Incomplete bladder emptying documented in this encounter Care Teams Rivet Passer Relationship Specialty Start Date End Date Gina Morales MD [facility] [address] [place] [address] [place] [address] PCP - General 01/29/14 04/05/16 documented as of this encounter
--- OUTSIDE RECORDS SUMMARY | 2024-01-10 02:03 | XMS_ITS | Encounter Summary ---
Author Organization [facility] Address [facility] [place] [address] Care Team Providers Care Recreational Therapy Aide Name Role Phone Gina Morales MD Primary Care Provider [phone] Reason for Visit * Auth/Cert Specialty Diagnoses / Procedures Referred By Yomi t Referred To Contact Diagnoses gerd Procedures PRO UPPER GI ENDOSCOPY, DIAGNOSTIC EGD, UPPER GI ENDOSCOPY Referral ID Status Reason Start Date Expiration Date Visits Re quested Visits Authorized [id number] 1 1 Encounter Details Date Type Department Care Team (Latest Contact Info) Description 09/03/2015 9:54 AM EDT - 09/03/2015 12:45 PM EDT Hospital En[place] [id number] Kain Kimball MD [facility] [place] [address] Discharge Disposition: Home Social History Tobacco Use [...] expected. Who to call Same Day Endoscopy [phone] [id number] Otherwise contact [phone] and ask to speak to the communications billing analyst carton waxing machine operator. Follow-up care is a pean part of your treatment and safety. Be [...] Report (09/03/2015 12:17 PM EDT) Final Diagnosis [id number] ? Location: 4T; 09; A The signing pathologist has (i) examined [...] Sections/Processing: (T1) ??aml 09/08/2015 1:56 PM EDT [facility] GI Biopsy 09/03/2015 12:1 7 PM EDT 09/03/2015 12:17 PM EDT GI Biopsy 09/03/2015 12:1 7 PM EDT 09/03/2015 12:17 PM EDT GI Biopsy 09/03/2015 12:1 7 PM EDT 09/03/2015 12:17 PM EDT Kain Kimball MD PATHOLOGY/CYTOLOGY O RDERABLES [facility] [place] [address] * Specimen to Pathology (surgical or derm) (09/03/2015 12:17 PM EDT) AP Specimen 09/03/2015 12:1 7 PM EDT 09/03/2015 12:17 PM EDT Narrative [facility] - 09/03/2015 12:17 PM EDT Specimen requisition ordered. ??Separate Pathology report to follow Kain Kimball MD PATHOLOGY/CYTOLOGY O ABBIE Performing Organization Address [facility] [place] [address] * Specimen to Pathology (surgical or derm) (09/03/2015 12:17 PM EDT) AP Specimen 09/03/2015 12:1 7 PM EDT 09/03/2015 12:17 PM EDT Narrative [facility] - 09/03/2015 12:17 PM EDT Specimen requisition ordered. ??Separate Pathology report to follow Kain Kimball MD PATHOLOGY/CYTOLOGY O ABBIE Performing Organization Address [facility] [place] [address] * Specimen to Pathology (surgical or derm) (09/03/2015 12:17 PM EDT) AP Specimen 09/03/2015 12:1 7 PM EDT 09/03/2015 12:17 PM EDT Narrative [facility] - 09/03/2015 12:17 PM EDT Specimen requisition ordered. ??Separate Pathology report to follow Kain Kimball MD PATHOLOGY/CYTOLOGY O ABBIE Performing Organization Address [facility] [place] [address] * UPPER GI ENDOSCOPY (09/03/2015 11:56 AM EDT) UPPER GI ENDOSCOPY [facility] Endoscopy Patient Name: Shobha Ramírez ? Procedure Date: 09/03/2015 11:56 AM ? Date of : 1960 ? Age: 55 ? Order #: [id number] ? Procedure: ? Upper GI endoscopy Indications: [...] Procedure Code(s): ?? --- Professional --- ? 60158, Esophagogastroduo denoscopy, ? flexible, transoral; with biopsy, ? single or multiple CPT copyright 2014 [employer]. All rights reserved. The codes documented in this report are preliminary and upon coating manager review may be revised to meet current compliance requirements. __ Kain Kimball MD 09/03/2015 12:23 PM This report has been signed electronically. Number of Addenda: 0 Note Initiated On: 09/03/2015 11:56 AM PROVATION 09/03/2015 11:5 6 AM EDT Gina Morales MD GENERAL SURGICAL ORD ERABLES PROVATION documented in this encounter Visit Diagnoses Not on filedocumented in this encounter Administered Medications Inactive Administered Medications - up to 3 most recent administrations Medication Order MAR Action Action Date Dose Rate Site lactated ringers infusion 100 mL/hr, Intravenous, CONTINUOUS, Starting on Geri 09/03/15 at 1100, Until Geri 09/03/15 at 1239, Endoscopy (Day of Procedure) New Bag 09/03/2015 11:00 AM EDT 100 mL/hr 100 mL/hr documented in this encounter Active and Recently [...] injection (CANCELED) ONCE PRN, Starting on Geri 09/03/15 at 1202, Until Geri 09/03/15 at 1239, Intra-Operative (Intra-Procedure), Routine 1202 (Given - Provid er: Danielle Turner RN)1205 (Given - Provider: Danielle Turner RN)1208 (Given - Provider: Danielle Turner RN) midazolam (PF) (VERSED) 1 mg/mL multi-dose injection (CANCELED) ONCE PRN, Starting on Geri 09/03/15 at 1202, Until Geri 09/03/15 at 1239, Intra-Operative (Intra-Procedure), Routine 1202 (Given - Provid er: Danielle Turner RN)1205 (Given - Provider: Dainelle Turner RN)1208 (Given - Provider: Danielle Turner RN) documented in this encounter Care Teams Recreational Therapy Aide Relationship Specialty Start Date End Date Gina Morales MD [facility] [address] [place] [address] [place] [address] PCP - General 01/29/14 04/05/16 documented as of this encounter
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
--- OUTSIDE RECORDS SUMMARY | 2024-01-10 02:03 | XMS_ITS | Encounter Summary ---
Author Organization [facility] Address [facility] [place] [address] Care Team Providers Care Water Quality Control Engineer Name Role Phone Gina Morales MD Primary Care Provider [phone] Reason for Referral * Physical Therapy (Routine) - Closed Specialty Diagnoses / Procedures Referred By Contac t Referred To Contact Physical Therapy Diagnoses Pelvic pain in female Dyspareunia Urinary incontinence, mixed Casey Velasco MD [facility] [place] [address] [facility] [place] [address] Referral ID Status Reason Start Date Expiration Date V isits Requested Visits Authorized [id number] Closed Evaluate and Treat 08/23/2011 02/19/2012 1 1 Reason for Visit * Reason Comments Follow-up Encounter Details Date Type Department Care Team (Late st Contact Info) Description 08/23/2011 8:15 AM EDT Follow-Up Obstetrics [place] [id number] Casey Velasco MD [facility] [place] [address] Vaginal bleeding (Primary Dx); Pelvic pain in female; Dyspareunia; Urinary incontinence, mixed Discharge Disposition: Home Social [...] Sign Reading Time Taken Comments Blood Pressure 126/74 08/23/2011 8:22 AM EDT Pulse 68 08/23/2011 8:22 AM EDT Temperature - - Respiratory Rate - - Oxygen Saturation - - Inhaled Oxygen Concentration - - Weight 113.4 kg (250 lb) 08/23/2011 8:22 AM EDT Height 165.7 cm (5' 5.25) 08/23/2011 8:22 AM ED T Body Mass Index 41.28 08/23/2011 8:22 AM EDT documented in this encounter Progress Notes * Casey Velasco MD - 08/23/2011 9:03 AM EDT SUBJECTIVE: Shobha Ramírez comes in today for for evaluation of post-coital vaginal bleeding and pelvic (suprapubic) pain, at the request of Dr. Taylor. She is s/p vaginal repair of uterovaginal prolapse and mid-urethral sling procedure last year. She has been having spotting per vagina over several months. A few times, the spotting has been heavier.She also notes some deep dyspareunia. She was Dr. Taylor who noted a clot at the vaginal cuff. The patient also notes per pain is midline, suprapubic, without dysuria. She is having urge type urinary incontinence, 2-3 times per week. She has occasional cough incontinence as well. Her bowels are regular. She is using a stool softener. She does have some sense of vaginal protrusion. Past Medical History Diagnosis Date ??? Bipolar disorder ADHD ??? Learning disability ??? Hyperlipemia ??? Obesity ??? Alcohol abuse, in remission sober since 2000 ??? Uterovaginal prolapse, incomplete [...] <250 GRAMS performed by CASEY VELASCO at [facility] MAIN OR ??? Revaginal prolapse, uterosacral 03/28/2011 COLPOPEXY, VAGINAL, INTRAPERITONEAL APPROACH performed by CASEY VELASCO at [facility] MAIN OR ??? Sling oper stres incontinence 03/28/2011 URETHRAL SUSPENSION, SLING\FASCIA OR SYNTHETIC performed by CASEY VELASCO at [facility] MAIN OR ??? Post colporrhaphy, rectum/vagina 03/28/2011 COLPORRHAPHY, POST RECTOCELE WITH OR W\O PERINEORRHAPHY performed by CASEY VELASCO at [facility] MAIN OR Outpatient prescriptions marked as taking for the 08/23/11 encounter (Follow-Up) with CASEY VELASCO Medication Sig Dispense Refill ??? traZODone (DESYREL) 100 mg tablet Take 100 mg by mouth nightly. ??? ferrous sulfate 325 mg (65 mg iron) EC tablet Take 325 mg by mouth daily. ??? ibuprofen (ADVIL;MOTRIN) 600 mg tablet Take 1 tablet by mouth every 6 hours. 90 tablet 1 ??? estrogen, conjugated,-medroxyprogesterone (PREMPRO) 0.3-1.5 mg per tablet Take 1 tablet by mouth daily. ??? simvastatin (ZOCOR) 20 mg tablet Take 20 mg by mouth nightly. ??? sertraline (ZOLOFT) 100 mg tablet Take 200 mg by mouth daily. ??? QUEtiapine (SEROQUEL XR) 200 mg 24 hr tablet Take 200 mg by mouth nightly. ??? pantoprazole (PROTONIX) 40 mg tablet Take 40 mg by mouth daily. ??? Cholecalciferol, Vitamin D3, (VITAMIN D) 1,000 unit Tab Take 1 tablet by mouth daily. ??? divalproex (DEPAKOTE) 500 mg EC tablet Take 1,000 mg by mouth every evening. Allergies Allergen Reactions ??? Oxycontin (Oxycodone) Itching Social History: New boyfriend. OBJECTIVE: Blood pressure 126/74, pulse 68, height 165.7 cm (5' 5.25), weight 113.399 kg (250 lb), last menstrual period 01/27/2011. Bladder scan PVR: 44 mL Urine dipstick: Trace blood General: In no distress. Abdomen: Obese, mildly tender at the suprapubic area. Pelvic: Normal external genitalia, including urethral meatus and perineum. Vagina: Overall support is good with mild posterior wall descent (see POP-Q exam below). Small granulation tissue polyp at the left cuff, mildly tender; no induration or erythema. There is no palpable or visible erosion at the paraurethral area. Cervix: absent Bimanual: Uterus is absent; no appreciable adnexal masses or tenderness. Rectal deferred. Pelvic Organ Prolapse Quantification (POP-Q): Aa -3 Ba -3 C -9 Gh Rest strain 3.5, 4 PB Rest strain 3,3 TVL 9 Ap -1 Bp -1 D -- ASSESSMENT: Shobha Ramírez is a 51 y.o. year old woman with: ?? Vaginal spotting, likely related to vaginal granulation tissue. ?? Dyspareunia, may be related to granulation tissue, inflammation. ?? Mixed urinary incontinence. Reassuring bladder scan PVR, urine dipstick. She does have pelvic floor weakness. ?? Pelvic support is reassuring. PLAN: The vaginal granulation tissue was touched with silver nitrate. We will set up PT evaluation to address the dyspareunia (which may improve with treating granulation tissue), mixed urinary incontinence. Continue stool softeners for her bowel management. CASEY VELASCO MD Division of Female Pelvic Medicine & Reconstructive Surgery documented in this encounter Plan of Treatment Scheduled Referrals Name Type Priority Associated Diagnoses Orde r Schedule REFERRAL TO PHYSICAL THERAPY Outpatient Referral Routine Pelvic pain in female Dyspareunia Urinary incontinence, mixed Ordered: 08/23/2011 documented as of this encounter Procedures Procedure Name Priority Date/Time Associated Diagnosis Comments BLADDER SCANNER Routine 08/23/2011 Vaginal bleeding Pelvic pain in female Dyspareunia Urinary incontinence, mixed POCT URINE DIPSTICK Routine 08/23/2011 Vaginal bleeding Pelvic pain in female Dyspareunia Urinary incontinence, mixed documented in this encounter Results * Bladder Scanner (08/23/2011) Scan 44 ml. Casey Velasco MD URO PROC W/O RFL ORD ERABLES * POCT urine dipstick (08/23/2011) POC Sp [place] 1.002 - 1.030 POC pH, UA 5.0 - 8.5 POC Leuk, UA Neg. Negative - Negative POC Nitrite, UA Neg. Negative - Negative POC Protein, UA Negative - Negative mg/dL POC Glucose, UA Normal - Normal mg/dL POC Ketone, UA Negative - Negative POC Urobil, UA 0.2 - 1.0 mg/dL POC Bili, UA Negative - Negative POC Blood, UA Trace Negative - Negative jimbo/uL Casey Velasco MD POINT OF CARE TEST O RDERABLES documented in this encounter Visit Diagnoses Diagnosis Vaginal bleeding- Primary Other specified noninflammatory disorder of vagina Pelvic pain in female Unspecified symptom associated with female genital organs Dyspareunia Urinary incontinence, mixed Mixed incontinence urge and stress (male)(female) documented in this encounter Care Teams Water Quality Control Engineer Relationship Specialty Start Date End Date Gina Morales MD [facility] [address] [place] [address] [address] [place] [address] PCP - General 01/18/11 01/27/14 documented as of this encounter
--- OUTSIDE RECORDS SUMMARY | 2024-01-10 02:03 | XMS_ITS | Encounter Summary ---
Author Organization [facility] Address [facility] [address] [place] [id number] Care Team Providers Care Elevator Service Technician Name Role Phone Shashi Verma Primary Care Provider [phone] Encounter Details Date Type Department Care Team (Late st Contact Info) Description 04/18/2016 6:00 PM EST Tech [place] [address] Erik Phillips MD [facility] [place] [address] Chronic constipation Social History Tobacco Use Types Packs/Day [...] as of this encounter Progress Notes * Erik Phillips MD - 04/18/2016 6:00 PM EST HIGH-RESOLUTION ANORECTAL MANOMETRY Shobha [address] [facility] [address] : 1960 STUDY DATE: 04-18-2016 PROVIDER: Erik Phillips, [place] ([id number]) INDICATION Constipation METHODS Stationary anorectal manometry was performed with the ManoScan 360 (Linkua) in a supervised setting after verbal consent. This system uses 16 circumferential and 16 axial solid-state sensors spaced 1 cm apart. The outer diameter of the probe is 4.2 mm. Anal and rectal pressures at rest, squeeze pressures, and simulated evaluation were assessed by high- resolution manometry. The rectoanal inhibitory reflex (RAIR) and the high- pressure zone were also measured. FINDINGS Anal Canal Borders (cm): 4.8 and 1.9. Anal High-Pressure Zone (HPZ) Length (cm): 2.5. Mean Sphincter Pressure (mmHg): 75 (normal 30-112 mmHg). Maximum Sphincter Pressure (mmHg): 79 Maximum Squeeze Sphincter Pressures (mmHg): 215 (normal squeeze pressures 99-250 mmHg). Duration of Sustained Squeeze (seconds): 4.7 (normal 3-23 seconds) BALLOON INFLATION RAIR: Present. First Sensation (cc): 30. Urge to Defecate (cc): 60. Discomfort (cc): 160. ATTEMPTED DEFECATION Residual Anal Pressure (mmHg): 32. Percent Anal Relaxation (%): 66 (normal -7-91%). Intrarectal Pressure (mmHg): -116 (normal 1-72 mmHg). Rectoanal Pressure Differential (mmHg): -148 (normal -30 to ? 0). IMPRESSION 1. Normal anal canal pressures. 2. Normal EAS squeeze pressures. 3. Ability to maintain a short sustained contraction. 4. Normal RAIR. 5. Heightened rectal sensation. This is commonly found in patients with disorders of visceral hypersensitivity. 6. Negative rectoanal pressure difference. During this maneuver, there was evidence of EAS and IAS relaxation. In this patient, the strongly negative rectoanal pressure differential is a reflection of the negative intrarectal pressure. Normally, rectal pressure should increase and should be higher than EAS pressure. In some patients this may respond to physical therapy. This assumes that mechanical obstruction has been ruled out. Erik Phillips, PhD, MD track repairer, [employer] Chief, Section of Gastroenterology and Hepatology [facility] [place] [address] [address] V: [phone] F: [phone] CC/EC: PCP documented in this encounter Plan of Treatment Not on file documented as of this encounter Visit Diagnoses Diagnosis Chronic constipation Unspecified constipation documented in this encounter Care Teams Elevator Service Technician Relationship Specialty Start Date End Date Shashi Verma PA [address] [place] [address] PCP - General Family Medicine 04/06/16 01/14/20 documented as of this encounter
--- OUTSIDE RECORDS SUMMARY | 2024-01-10 02:03 | XMS_ITS | Encounter Summary ---
Author Organization [facility] [place] [address] Care Team Providers Care Frame Changer Name Role Phone Gina Morales MD Primary Care Provider [phone] Encounter Details Date Type Department Care Team (Late st Contact Info) Description 12/04/2013 Orders Only Obstetrics [place] [address] Lela Jaramillo, RN Menopause (Primary Dx) Social History Tobacco Use Types Packs/Day Years [...] as of this encounter Visit Diagnoses Diagnosis Menopause- Primary Asymptomatic postmenopausal status (age-related) (natural) documented in this encounter Care Teams Frame Changer Relationship Specialty Start Date End Date Gina Morales MD [facility] [address] [place] [address] [place] [address] PCP - General 01/18/11 01/27/14 documented as of this encounter
--- OUTSIDE RECORDS SUMMARY | 2024-01-10 02:03 | XMS_ITS | Encounter Summary ---
Author Organization [facility] Address [facility] [place] [address] Care Team Providers Care Bartender Helper Name Role Phone Unknown Primary Care Provider Unavailabl e Reason for Referral * Physical Therapy (Routine) - Closed Specialty Diagnoses / Procedures Referred By Yomi morales Referred To Contact Physical Therapy Diagnoses Urinary incontinence, urge Fecal incontinence Pelvic floor weakness in female Casey Tellez MD [facility] [place] [address] Referral ID Status Reason Start Date Expiration Date V isits Requested Visits Authorized [id number] Closed Evaluate and Treat 01/28/2014 07/27/2014 1 1 Reason for Visit * Reason Comments Follow-up Encounter Details Date Type Department Care Team (Late st Contact Info) Description 01/28/2014 11:00 AM EDT Follow-Up Obstetrics [place] [address] Casey Tellez MD [facility] [place] [address] Urinary incontinence, urge (Primary Dx); Fecal incontinence; Pelvic floor weakness in female Discharge Disposition: Home Social History [...] Sign Reading Time Taken Comments Blood Pressure 146/84 01/28/2014 11:13 AM EDT Pulse - - Temperature - - Respiratory Rate - - Oxygen Saturation - - Inhaled Oxygen Concentration - - Weight 110.1 kg (242 lb 11.2 oz) 2013 11:13 AM EDT Height - - Body Mass Index 39.77 08/22/2013 10:32 AM EDT documented in this encounter Progress Notes * Casey Tellez MD - 01/28/2014 11:41 AM EDT Patient Active Problem List Diagnosis Code ??? Preventative health care V70.0 ??? History of uterine prolapse V13.29 ??? Urinary incontinence, mixed 788.33 ??? Muscle weakness 728.87 ??? Dyspareunia, female 625.0 SUBJECTIVE: Shobha Ramírez comes in today for a discussion of options to manage her urinary incontinence. She describes urinary urgency and pressure. When she gets the urge, she cannot suppress the urge and will have an accident. She is feeling like she empties better. She has some pressure at the pelvis. She also has had accidents for her bowels at times. She denies hematuria, dysuria. She denies fevers, flank pain. OBJECTIVE: Blood pressure 146/84, weight 110.088 kg (242 lb 11.2 oz), last menstrual period 01/27/2011. Results for orders placed in visit on 09/24/13 POCT URINE DIPSTICK Component Value Range POC Sp [place] 1.002 - 1.030 POC pH, UA 5.0 [...] Blood, UA Neg. Negative - Negative jimbo/uL Pelvic: Normal external genitalia, including urethral meatus and perineum. Vagina: Mild anterior / posterior descent Cervix: absent Bimanual: Uterus is absent; no appreciable adnexal masses or tenderness. Rectal deferred. Levator ani strength: Tone = 1-2/5 Squeeze = 0/5 ASSESSMENT: Shobha Ramírez is a 53 y.o. year old woman with: ?? Urge urinary incontinence ?? Fecal incontinence ?? Levator ani weakness PLAN: We discussed options. She would like to work with a physical therapist again and prefers this to ever [place]. We discussed that she might be a candidate for sacral neuromodulation if not improving. CASEY TELLEZ MD Division of Female Pelvic Medicine & Reconstructive Surgery documented in this encounter Miscellaneous Notes * Addendum Note - Ronnie Mar LPN - 01/28/2014 1:34 PM EDTAddended by: RONNIE MAR on: 01/28/2014 01:34 PM Modules accepted: Orders documented in this encounter Plan of Treatment Scheduled Referrals Name Type Priority Associated Diagnoses Orde r Schedule Referral to Physical Therapy Outpatient Referral Routine Urinary incontinence, urge Fecal incontinence Pelvic floor weakness in female Ordered: 01/28/2014 documented as of this encounter Procedures Procedure Name Priority Date/Time Associated Diagnosis Comments BLADDER SCANNER Routine 01/28/2014 Urinary incontinence, urge documented in this encounter Results * Bladder Scanner (01/28/2014) Bladder Scan (mL) 70 mL Casey Tellez MD URO PROC W/O RFL ORD ERABLES documented in this encounter Visit Diagnoses Diagnosis Urinary incontinence, urge- Primary Urge incontinence Fecal incontinence Full incontinence of feces Pelvic floor weakness in female Other specified genital prolapse documented in this encounter Care Teams Bartender Helper Relationship Specialty Start Date End Date Unknown None PCP - General 01/28/14 01/28/14 documented as of this encounter
--- OUTSIDE RECORDS SUMMARY | 2024-01-10 02:03 | XMS_ITS | Encounter Summary ---
Author Organization [facility] Address [facility] [place] [address] Care Team Providers Care Mobile Qa Tester Name Role Phone Gina Morales MD Primary Care Provider [phone] Reason for Visit * Reason Comments Follow-up Encounter Details Date Type Department Care Team (Late st Contact Info) Description 10/25/2011 8:30 AM EDT Office Visit Obstetrics [place] [address] Casey Velasco MD [facility] OBSTETRICS [place] [address] Pelvic pain (Primary Dx); Dyspareunia, female; Urinary incontinence, mixed Discharge Disposition: Home Social [...] Sign Reading Time Taken Comments Blood Pressure 118/70 10/25/2011 8:28 AM EDT Pulse - - Temperature - - Respiratory Rate - - Oxygen Saturation - - Inhaled Oxygen Concentration - - Weight 114.9 kg (253 lb 3.2 oz) 10/25/2011 8:28 AM EDT Height - - Body Mass Index 41.81 08/23/2011 8:22 AM EDT documented in this encounter Progress Notes * Casey Velasco MD - 10/25/2011 9:35 AM EDT SUBJECTIVE: Shobha Ramírez comes in today for follow-up. She saw Rosio Gonzalez PT, once since her last visit with me. She is seeing her again today. She states she has no really worked on any of the recommended therapies suggested by Rosio. She does has not noted any further spotting since her treatment of the vaginal granulation tissue at her last visit. She denies vaginal discharge. She still hassome deep dyspareunia. She feels she may leak some urine at night. She does not feel she can come down regularly for PT due to transportation issues. . OBJECTIVE: Blood pressure 118/70, weight 114.851 kg (253 lb 3.2 oz), last menstrual period 01/27/2011. Pelvic: Normal external genitalia, including urethral meatus and perineum. Vagina: Good support, granulation tissue resolved. Tender at puborectalis m bilaterally, and at cuff. No induratoin. Cervix: absent Bimanual: Uterus is absent; no appreciable adnexal masses or tenderness. Rectal deferred. Urine dipstick: Negative for blood, leuk ASSESSMENT: Shobha Ramírez is a 51 y.o. year old woman with: ?? Dyspareunia, some puborectalis tenderness. ?? Urinary incontinence, mixed. ?? Granulation tissue, resolved. PLAN: I encouraged her to keep her appointment with Rosio Gonzalez PT today. She may have suggestions for a PT closer to her home. Follow-up in 6 months with us. CASEY VELASCO MD Division of Female Pelvic Medicine & Reconstructive Surgery documented in this encounter Plan of Treatment Not on file documented as of this encounter Procedures Procedure Name Priority Date/Time Associated Diagnosis Comments POCT URINE DIPSTICK Routine 10/25/2011 9 :21 AM EDT Pelvic pain documented in this encounter Results * POCT urine dipstick (10/25/2011 9:21 AM EDT) POC Sp [place] 1.010 1.002 - 1.030 POC pH, UA 6.0 5.0 - 8.5 POC Leuk, UA NEG Negative - Negative POC Nitrite, UA NEG Negative - Negative POC Protein, UA NEG Negative - Negative mg/dL POC Glucose, UA NEG Normal - Normal mg/dL POC Ketone, UA NEG Negative - Negative POC Urobil, UA NEG 0.2 - 1.0 mg/dL POC Bili, UA NEG Negative - Negative POC Blood, UA NEG Negative - Negative jimbo/uL 10/25/2011 9:21 AM EDT Casey Velasco MD POINT OF CARE TEST O RDERABLES documented in this encounter Visit Diagnoses Diagnosis Pelvic pain- Primary Unspecified symptom associated with female genital organs Dyspareunia, female Dyspareunia Urinary incontinence, mixed Mixed incontinence urge and stress (male)(female) documented in this encounter Care Teams Mobile Qa Tester Relationship Specialty Start Date End Date Gina Morales MD [facility] [address] [place] [address] [place] [address] PCP - General 01/18/11 01/27/14 documented as of this encounter
--- OUTSIDE RECORDS SUMMARY | 2024-01-10 02:03 | XMS_ITS | Encounter Summary ---
Author Organization [facility] Address [facility] [place] [address] Care Team Providers Care Facilities Mechanical Design Engineer Name Role Phone Gina Morales MD Primary Care Provider [phone] Reason for Visit * Reason Onset Date Comments Follow-up 09/20/2013 Encounter Details Date Type Department Care Team (Late st Contact Info) Description 09/20/2013 Telephone Obstetrics [place] [phone] Lela Jaramillo, RN Follow-up Social History Tobacco [...] Miscellaneous Notes * Telephone Encounter - Lela Jaramillo, RN - 09/20/2013 9:33 AM EDT TELEPHONE NOTE Caller: Pt Reason for call: Pt is scheduled for UDS next Monday with . Pt was prescribed Kelfex prior, pt was instructed to take 1 tab 1 hour to procedure and then 1 tab 8 - 12 hours after procedure. Pt calls today with taking 1 tab of the Keflex yesterday by accident, she thought it was her gaspill. Pt states she still has the 1 tab left to take one hour prior to procedure but no longer has the second pill and does not have the money to get another till the end of next week. Plan/Instructions: Informed pt to put aside the 1 tab of Keflex and take it one hour prior to procedure. Will review with the second dose and money issue. documented in this encounter Plan of Treatment Not on file documented as of this encounter Visit Diagnoses Not on filedocumented in this encounter Care Teams Facilities Mechanical Design Engineer Relationship Specialty Start Date End Date Gina Morales MD [facility] [address] [place] [place] [address] [place] [address] PCP - General 01/18/11 01/27/14 documented as of this encounter
--- OUTSIDE RECORDS SUMMARY | 2024-01-10 02:03 | XMS_ITS | Encounter Summary ---
Author Organization [facility] [place] [address] Care Team Providers Care Gasoline Truck Crane Operator Name Role Phone Shashi Verma Primary Care Provider [phone] Encounter Details Date Type Department Care Team (Late st Contact Info) Description 03/23/2016 Orders Only G[place] [phone] Elizabeth Chaudhari Social History Tobacco Use Types Packs/Day Years [...] on filedocumented in this encounter Care Teams Gasoline Truck Crane Operator Relationship Specialty Start Date End Date Shashi Verma PA [address] [place] [address] PCP - General Family Medicine 04/06/16 01/14/20 documented as of this encounter
--- OUTSIDE RECORDS SUMMARY | 2024-01-10 02:03 | XMS_ITS | Encounter Summary ---
Author Organization [facility] [place] [address] Care Team Providers Care Behavioral Specialist Name Role Phone Shashi Verma Primary Care Provider [phone] Encounter Details Date Type Department Care Team (Late st Contact Info) Description 07/07/2016 Telephone [place] [phone] Maria Ines Muir RN Social History Tobacco Use Types Packs/Day [...] Encounter - Maria Ines Muir RN - 07/07/2016 2:27 PM EST Images from the original note were not included. Per Tracia: Rifaximin 550mg bid x 14 days ? ----- Message ----- ? From: Lc Murillo MD ? Sent: 07/01/2016 ?? 8:07 AM ? To: Yossi Morales APRN ? Shobha Ramírez ( ) : 1960 Referring Provider ?? Yossi Morales, PRODUCT TRANSFER PUMPER ?? Attached Report ?? Shobha Ramírez ( ) : 1960 Shobha Ramírez 06/24/2016 1:00 PM ?? Tech Visit Description: 56 year old female Provider: Lc Murillo MD Department: [facility] Diagnoses ?? Abdominal bloating ?? Codes: R14.0 ?? Chief Complaint ?? Bloated ?? Progress Notes ?? Lc Murillo MD at 06/24/2016 ??1:00 PM ?? Author Type: Physician Status: Signed Pizza Maker: Lc Murillo MD (Physician) ? Gastroenterology Breath Test Report ?? Patient: Shobha Ramírez Date Of : 1960 PCP: TORI Mendoza Referring: Yossi Morales ?? STUDY DATE: 06/24/2016 ?? PROVIDER: LC MURILLO MD ?? INDICATION: Abdominal bloating Evaluate for SIBO ? ppmH2 ppmCH4 CO2(f) ?? Fasting Baseline: 44 10 4.3/1.27 ? Administer sugar: 15 mL Lactulose 90 mL H2O ?? Sample Time ppmH2 ppmCH4 (f)CO2 ?? 1. 20 min 23 8 3.6/1.52 ? 2. 40 min 17 8 3.6/1.57 ? 3. 60 min 9 4 3.1/1.77 ? 4. 80 min 20 9 3.0/1.83 ? 5. 100 min 76 14 3.6/1.52 ? 6. 120 min 97 14 4.0/1.37 ? 7. 140 min 89 14 4.0/1.37 ? 8. 160 min 75 13 3.9/1.41 ? 9. 180 min 64 10 4.2/1.30 ? Interpretation: Clinical correlation required. 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 Elevated baseline hydrogen production drops after administration of lactulose which is not consistent with small intestinal bacterial overgrowth (SIBO) and suggests inadequate pre-test preparation (inadequate fasting). Subsequent delayed rise in hydrogen production is significant but occurs at greater than 80 minutes suggesting orocecal transit time of 80-100 minutes. ? Lc Murillo MD Gastroenterology [place] [address] P: [phone] F: [phone] ?? Copy: TORI Dawson ? Unable to reach patient by phone, left message on voicemail to call the office at her convenience regarding her HBT results. documented in this encounter Plan of Treatment Not on file documented as of this encounter Visit Diagnoses Not on filedocumented in this encounter Care Teams Behavioral Specialist Relationship Specialty Start Date End Date Shashi Verma PA [address] [place] [address] PCP - General Family Medicine 04/06/16 01/14/20 documented as of this encounter
--- OUTSIDE RECORDS SUMMARY | 2024-01-10 02:03 | XMS_ITS | Encounter Summary ---
Author Organization [facility] Address [facility] [place] [address] Care Team Providers Care Craft Manager Name Role Phone Gina Morales MD Primary Care Provider [phone] Reason for Referral * Diagnostic Test (Routine) Specialty Diagnoses / Procedures Referred By Contac t Referred To Contact Radiology Diagnoses Pelvic floor dysfunction Procedures MRI Pelvis Soft Tissue (Gi Gu Soil And Plant Scientist)WO Contrast MRI Pelvis Soft Tissue(Gi Gu Soil And Plant Scientist)WWO Contrast Yossi Morales SENIOR STRUCTURAL ENGINEER [facility] [place] [address] [place] [address] Referral ID Status Reason Start Date Expiration Date V isits Requested Visits Authorized [id number] Specialty Service Requested 04/12/2016 07/11/2016 1 1 * Physical Therapy (Routine) - Closed Specialty Diagnoses / Procedures Referred By Contac t Referred To Contact Physical Therapy Diagnoses Pelvic floor dysfunction Yossi Morales SENIOR STRUCTURAL ENGINEER [facility] [place] [address] [address] [place] [address] Referral ID Status Reason Start Date Expiration Date V isits Requested Visits Authorized [id number] Closed Evaluate and Treat 03/23/2016 03/23/2017 1 1 Encounter Details Date Type Department Care Team (Late st Contact Info) Description 03/23/2016 12:00 PM EDT Office Visit Gastroenterology at [facility] [place] [address] Yossi Morales APRN [facility] [place] [address] Irritable bowel syndrome with constipation; Pelvic floor dysfunction; Bloat; RUQ pain Social History Tobacco Use Types [...] Progress Notes * Yossi Morales RN - 03/23/2016 12:00 PM EDT _27___minutes of this_36___-minute visit were spent in face to face discussion and/or counseling the patient, regarding symptoms and treatment options as detailed below. Pt is here for f/u regarding gi testing and progress with medical regimen. Egd:The examined esophagus was normal. Biopsies were ?taken with a cold forceps for histology. ?A small hiatus hernia was present from 38-40 cm. ?The Z-line was regular and was found 38 cm from the ?incisors. ?The entire examined stomach was normal. Biopsies were ?taken with a cold forceps for Helicobacter pylori ?testing. ?The examined duodenum was normal. Biopsies for ?histology were taken with a cold forceps for for ?evaluation of celiac disease. ? Impression: ?- Normal esophagus. Biopsied. ?- Small hiatus hernia. ?- Z-line regular, 38 cm from the ?incisors. ?- Normal stomach. Biopsied. ?- Normal examined duodenum. Biopsied. Recommendation: ?- Await pathology results. Bx: Stomach, ??biopsy: - Antrum-type mucosa with reactive gastropathy. - Body/fundic-type mucosa, negative for diagnostic abnormality. B - Duodenum, ??biopsy: - Duodenal mucosa, negative for diagnostic abnormality. C - Esophagus, ??biopsy: - Lymphocytic esophagitis (see Note). Note: Immunostaining shows that intraepithelial CD8-positive T-cells outnumber CD4- positive T-cells. ? Increased intraepithelial lymphocytes with CD8 T-cell predominance ??have been reported in association with reflux esophagitis and motility disorders Pt is taking protonix 40mg qd. Pt is not having reflux. No dysphagia, odynophagia, vomiting. Tolerating diet. Weigh stable. Pt continues with having significant amount of gas. Bloating. Some relief with low fodmap diet. Also, continues with constipation. Taking 1/2 capful of miralax and 1 capsule colace. Takes the laxatives every few days. Also, pushes on perineum to have a bowel movement. Does not feel empty. 2012 colonoscopy: normal exam. Exam: Soft, tender in llq, no mass or organomegaly Plan: 1. Gerd: protonix 40mg qd 2. IBS-C: miralax 2-4 capfuls daily; ?sibo; schedule hbt; low fodmap diet. 3. Pelvic floor dysfunction: schedule pelvic mri with defecograpy; schedule oam. Refer to PT; appropriate positioning; foot stool 4. Gif in 2-3 months documented in this encounter Plan of Treatment Scheduled Referrals Name Type Priority Associated Diagnoses Orde r Schedule Referral to Physical Therapy Outpatient Referral Routine Pelvic floor dysfunction Ordered: 03/23/2016 documented as of this encounter Results * MRI Pelvis Soft Tissue (Gi Gu Soil And Plant Scientist)WO Contrast (04/18/2016 2:33 PM EST) Anatomical Region Laterality Modality Pelvis Magnetic Resonan ce Impressions 04/18/2016 3:13 PM EST Anterior compartment: mild (2-4cm) descent. Urethral hypermobility with cystocele. Middle compartment: Normal (0-2cm). Posterior compartment: Marked (>6cm) descent. ??Rectocele, as above. ??No enterocele.Peritoneocele, as above. Rectal prolapse:Internal mucosal Narrative 04/18/2016 3:13 PM EST EXAMINATION: MRI PELVIS SOFT TISSUE (GI VOCATIONAL TEACHER) WO CONTRAST CLINICAL HISTORY: pelvic mri with [...] 04/18/2016 EXAMINATION: MRI PELVIS SOFT TISSUE (GI VOCATIONAL TEACHER) WO CONTRAST CLINICAL HISTORY: pelvic mri with [...] documented in this encounter Visit Diagnoses Diagnosis Irritable bowel syndrome with constipation Irritable bowel syndrome Pelvic floor dysfunction Pelvic muscle wasting Bloat Flatulence, eructation, and gas pain RUQ pain Abdominal pain, right upper quadrant Pelvic floor dysfunction Pelvic muscle wasting documented in this encounter Care Teams Craft Manager Relationship Specialty Start Date End Date Gina Morales MD [facility] [address] [place] [address] [place] [address] PCP - General 01/29/14 04/05/16 documented as of this encounter
--- OUTSIDE RECORDS SUMMARY | 2024-01-10 02:03 | XMS_ITS | Encounter Summary ---
Author Organization [facility] [place] [address] Care Team Providers Care Loan Review Manager Name Role Phone Gina Morales MD Primary Care Provider [phone] Encounter Details Date Type Department Care Team (Late st Contact Info) Description 08/23/2013 Orders Only Obstetrics [place] [address] Lela Jaramillo RN Prophylactic antibiotic (Primary Dx) Social History Tobacco Use Types [...] Progress Notes * Lela Jaramillo, RN - 08/23/2013 4:38 PM EDT Pt will take Keflex 500 mg 1 tab prior to UDS and 1 tab 8 - 12 hours after per .. documented in this encounter Plan of Treatment Not on file documented as of this encounter Visit Diagnoses Diagnosis Prophylactic antibiotic- Primary Encounter for long-term (current) use of antibiotics documented in this encounter Care Teams Loan Review Manager Relationship Specialty Start Date End Date Gina Morales MD [facility] [address] [place] [address] [place] [address] PCP - General 01/18/11 01/27/14 documented as of this encounter
--- OUTSIDE RECORDS SUMMARY | 2024-01-10 02:03 | XMS_ITS | Encounter Summary ---
Author Organization [facility] Address [facility] [place] [address] Care Team Providers Care Cutter First Name Role Phone Gina Morales MD Primary Care Provider [phone] Reason for Visit * Reason Onset Date Comments Post-op Problem 04/07/2011 Encounter Details Date Type Department Care Team (Late st Contact Info) Description 04/07/2011 Telephone Obstetrics [place] [phone] Lela Jaramillo, RN Post-op Problem Social History Tobacco Use Types Packs/Day Years [...] Telephone Encounter - Lela Jaramillo RN - 04/07/2011 5:16 PM EST TELEPHONE NOTE Caller: Pt Reason for call: Pt had surgery on 03/28/11 with . Pt has recently been treated for UTIby her local PCP. Pt calls today noting a stitch on her pad. Pt did have some vaginal spotting. No pain. No odor to d/c. Plan/Instructions: Pt to monitor spotting, if bleeding increases or spotting does not stop pt to call clinic. Pt will also have the VNA tomorrow to check PV. Pt still does not feel like she is emptying completely. documented in this encounter Plan of Treatment Not on file documented as of this encounter Visit Diagnoses Not on filedocumented in this encounter Care Teams Cutter First Relationship Specialty Start Date End Date Gina Morales MD [facility] [address] [place] [address] [place] [address] PCP - General 01/18/11 01/27/14 documented as of this encounter
--- OUTSIDE RECORDS SUMMARY | 2024-01-10 02:03 | XMS_ITS | Encounter Summary ---
Author Organization [facility] [place] [address] Care Team Providers Care Residential Property Consultant Name Role Phone Gina Morales MD Primary Care Provider [phone] Reason for Visit * Reason Onset Date Comments Follow-up 04/08/2011 Encounter Details Date Type Department Care Team (Late st Contact Info) Description 04/08/2011 Telephone Obstetrics [place] [phone] Lela Jaraimllo, RN Follow-up Social History Tobacco Use Types [...] Telephone Encounter - Lela Jaramillo RN - 04/08/2011 1:10 PM EST Pt had surgery on 03/28/11 with . Pt was dx with a recent UTI and being treated. Pt hadbeen complaining of not emptying bladder. VNA called to inform pt voided on her own 30cc ( had just gone earlier on her own prior to arrival of nurse), Nurse straight cath 5 cc's or urine. Pt to continue with antibiotic. documented in this encounter Plan of Treatment Not on file documented as of this encounter Visit Diagnoses Not on filedocumented in this encounter Care Teams Residential Property Consultant Relationship Specialty Start Date End Date Gina Morales MD [facility] [address] [place] [address] [place] [address] PCP - General 01/18/11 01/27/14 documented as of this encounter
--- OUTSIDE RECORDS SUMMARY | 2024-01-10 02:03 | XMS_ITS | Encounter Summary ---
Author Organization [facility] Address [facility] [place] [address] Care Team Providers Care Textile Screen Printer Name Role Phone Shashi Verma Primary Care Provider [phone] Reason for Visit * Reason Comments Follow-up Encounter Details Date Type Department Care Team (Late st Contact Info) Description 06/07/2017 11:30 AM EST Office [place] [address] Yossi Morales APRN [facility] [place] [address] Irritable bowel syndrome with constipation Social History [...] Sign Reading Time Taken Comments Blood Pressure 153/71 06/07/2017 11:29 AM EST Pulse 78 06/07/2017 11:29 AM EST Temperature - - Respiratory Rate - - Oxygen Saturation - - Inhaled Oxygen Concentration - - Weight 70.9 kg (156 lb 6.4 oz) 06/07/2017 11:29 AM EST Height 166.4 cm (5' 5.5) 06/07/2017 11:29 AM ES T Body Mass Index 25.63 06/07/2017 11:29 AM EST documented in this encounter Progress Notes * Yossi Morales RN - 06/07/2017 11:30 AM EST _28___minutes of this_35___-minute visit were spent in face to face discussion and/or counseling the patient, regarding symptoms and treatment options as detailed below. Pt is here for follow up regarding progress with medical regimen. Pt is taking protonix 40mg qd. Having heartburn about once per week. Regurgitation/acid taste, onceevery few days. Globus sensation. Throat feels tight. 2016 egd: The examined esophagus was normal. Biopsies were ?taken [...] duodenum. Biopsied. Recommendation: ?- Await pathology results. Bx of stomach and duodenum normal. Esophageal bx showed lymphocytic colitis. No lower dysphagia, odynophagia, n/v. Weight stable. Admits she has been eating aggravating foods. Increase gas, bloat and constipation. eating more junk food. We reviewed the low fodmap diet. Neomycin worked well for gas and bloating. But developed a yeast infection. Pt is taking miralax 1 capful qod. Continues with hard stools. Having a stool every three stools. Self-disimpacting. Normal colonoscopy in 2012. Trying to elevate feet during defecation. Went to PT. Encouraged to continue with recommended exercises for pelvic floor. Plan: 1. Gerd: protonix 40mg bid; if sx continue consider ph testing and possible ent referral 2. Globus sensation: ?uncontrolled reflux. As above 3. Gas/bloat: low fodmap diet 4. IBS-C: miralax 1-4 capfuls; colace prn 5. Pelvic floor dysfunction: appropriate positioning; PT recommended exercises 6. Gif in 3 months documented in this encounter Plan of Treatment Not on file documented as of this encounter Visit Diagnoses Diagnosis Irritable bowel syndrome with constipation Irritable bowel syndrome documented in this encounter Care Teams Textile Screen Printer Relationship Specialty Start Date End Date Shashi Verma PA [address] [place] [address] PCP - General Family Medicine 04/06/16 01/14/20 documented as of this encounter
--- OUTSIDE RECORDS SUMMARY | 2024-01-10 02:03 | XMS_ITS | Encounter Summary ---
Author Organization [facility] Address [facility] [place] [address] Care Team Providers Care Mutuel Teller Name Role Phone Gina Morales MD Primary Care Provider [phone] Reason for Visit * Reason Comments Follow-up 1 YEAR CK Encounter Details Date Type Department Care Team (Late st Contact Info) Description 06/22/2012 3:00 PM EST Office Visit Obstetrics [place] [address] Casey Velasco MD [facility] [address] [place] [address] Urge incontinence (Primary Dx) Discharge Disposition: Home Social History [...] Sign Reading Time Taken Comments Blood Pressure 122/78 06/22/2012 3:10 PM EST Pulse - - Temperature - - Respiratory Rate - - Oxygen Saturation - - Inhaled Oxygen Concentration - - Weight 111.1 kg (245 lb) 06/22/2012 3:10 PM EST Height 165.1 cm (5' 5) 06/22/2012 3:10 PM EST Body Mass Index 40.77 06/22/2012 3:10 PM EST documented in this encounter Progress Notes * Casey Velasco MD - 06/22/2012 3:34 PM EST Female Pelvic Medicine/Reconstructive Surgery One Year Follow-up Visit Date of visit: 06/22/2012 Patient name: Janice Díaz Date of surgery: 03/28/2011 Procedure: Vaginal hysterectomy, uterosacral ligament suspension, posterior colporrhaphy, mid-urethral sling Subjective: Ms. Díaz presents for a one year follow up visit. She was initially treated for prolapse and urinary incontinience a year ago. She denies recurrent symptoms of vaginal bulging. She does note some recurrent symptoms of urinary incontinence, primarily associated with urge symptoms. She denies dysuria. Her flow is somewhat slow at times. She is bothered by gas, and flatal incontinence. She only has a BM every 2-3 days. Pertinent findings to emphasize are: myD-H Urogyn 06/22/2012 Farzana - Sensory Dimensions - Farzana - Affective Dimensions - Farzana - VAS - Farzana - Present Pain Intensity - Farzana - Total Pain Score - VR12 - Physical Component Summary - VR12 - Mental Component Summary - FISI 25 PFDI - CRADI 53.12 PFDI - POPDI 12.5 PFDI - MICHELLE 62.5 PFDI Summary Score 128.12 JACQUE Score 3 (Moderate) PISQ - Pelvic Organ Prolapse Severity Index - Decision Regret Scale 35 Pelvic Floor Symptoms Bladder Storage Symptoms 10/25/2011 Voiding symptoms Feeling of incomplete emptying Pelvic Organ Prolapse (POP) UG Pelvic Organ Prolapse 10/25/2011 Personally see or feel a vaginal bulge? Just inside the opening of the vagina What precipitates prolapse or symptoms of prolapse? Single occurrence (at least once in the last 3 months) Bladder Function UG Bladder Function 06/22/2012 Do you use pads/liners: Panty liners, No pads How many pads/liners do you use? - Bowel Function No incontinence Farzana Screening Question UG Farzana Screening 10/25/2011 In the last week, have you felt any pain in the abdomen/pelvic area? Not sure Bladder Function Number of daytime voids: Every hour Number of nocturia events: 1-2 Urinary incontinence since surgery (y/n): y If yes, [place] Incontinence Severity Index: How often do you experience urinary leakage? 0. Never 1. Less than once a month 2. A few times a month 3. A few times a week 4. Every day and/or night Value 3 How much urine do you lose each time? 0. None 1. Drops 2. Small Splashes 3. More Value 1 The Severity Index is the product of the two questions 0 - NONE 1-2 Slight 3-6 Moderate 8-9 Severe 12 Very severe SCORE: 3 If yes, leaks with: Event Presence Event Presence NONE Hadar Walking Cold Weather Running Anticipation of going to the lavatory x Cough/Sneeze First morning void Lifting Running water Laughing Other Number of pads / day: no Pad type: n/a Voiding Dysfunction: Symptom Presence NONE Straining to empty Incomplete emptying x Weak stream Feeling the urge to void after voiding Dribbling Changes in position Difficulty initiating a stream x Bowel Function Fecal incontinence since surgery? (stool/gas) no How many fecal incontinence episodes / week? Flatus only How often do you have bowel movements? Every 2-3 days Any new defecatory problems since surgery?: fiber IF so which defecatory problem?: Symptom Presence Symptom Presence NONE Require laxatives regularly Difficulty emptying Less than three bowel movements / week x Need to strain Urgency Hard stools Other Loose stools Sexual Dysfunction: Active?: yes Desire to retain sexual function?: yes Pain with intercourse?: deep If YES - insertion/deep?: deep Interest/Desire (1 low - 5 high): n/a Other Health Screening: Colonoscopy: never Bone Density Study: n/a Mammogram: [facility] at [facility] Pap smear: S/p hysterectomy OBJECTIVE: BP 122/78 Ht 165.1 cm (5' 5) Wt 111.131 kg (245 lb) BMI 40.77 kg/m2 LMP 01/27/2011 Bladder scan: 0 ml Urine Dip: positive for leukocytes, red blood cells General: normal appearing female, pleasant mood, normal speech Abdomen: Abdomen soft, non-tender, bowel sounds normal. Back: Non-tender, without costovertebral angle or paraspinal tenderness Pelvic: Cough stress test (empty supine): negative External Genitalia: Vulva, Adak's and Bartholin glands normal, urethra without tenderness or mass Vagina: relatively well supported Discharge?: no Cervix: absent Bimanual (uterus/adnexa): Uterus is surgically absent; no adnexal masses Rectal/Vaginal: deferred POP Q Measurements: Aa -2 Ba -2 C -8 GH rest, strain 3,4 PB rest, strain 3,3 TVL 8.5 Ap -1 Bp -1 D -- Impression: Ms. Díaz is a 52 y.o. year old woman now a year s/p prolapse surgery and mid- urethral sling. She has some ongoing urinary incontinence, urge-predominant. She also has some flatal incontinence and difficulty with moving her bowels. She did work with PT last year but did not follow through because of too much going on. Plan: ?? Activity: no restrictions. ?? Pelvic floor exercises 10 reps 2-3 times daily to maintain pelvic floor strength ?? We discussed the option of a trial of an anticholinergic agent to see if the bladder urge incontinence could be improved. After reviewing potential side effects, she prefers not to try medicationsat present. ?? Return in 12 months / PRN to reassess. ?? Send urine for microscopic analsysis, culture. CASEY VELASCO MD Division of Female Pelvic Medicine/Reconstructive Surgery ADDENDUM: Urinalysis with 10 squames per HPF, consistent with contamination. CASEY VELASCO MD documented in this encounter Plan of Treatment Scheduled Orders Name Type Priority Associated Diagnoses Orde r Schedule Bladder Scanner PROCEDURE Routine Urge incontinence Ordered: 06/22/2012 POCT urine dipstick Point of Care Testing Routine Urge incontinence Ordered: 06/22/2012 documented as of this encounter Procedures Procedure Name Priority Date/Time Associated Diagnosis Comments URINE CULTURE Routine 06/22/2012 4:44 PM EST Urge incontinence URINALYSIS WITH REFLEX CULTURE Routine 06/22/2012 3:33 PM EST Urge incontinence documented in this encounter Results * Urine culture Clean Catch Urine (06/22/2012 4:44 PM EST) Urine Culture ? Patient Name: JANICE DÍAZ ?Ordered By: CASEY VELASCO ? MR#: [id number] ?LOC: ??5L ? /Sex: ??1960 (52 years), ? Female ? PROCEDURE: Urine Culture ?SOURCE: U CC ? COLLECTED: 06/22/2012 16:44 ? STARTED: 06/22/2012 16:44 ? FINAL REPORT ? Final Report ? Verified: 013 14:38 ? 10,000-49,000 cfu/ml mixed mucosal yue ? Note: Multiple bacterial morphotypes present. Suggest appropriate ? recollection with timely delivery to ? the laboratory, if clinically significant. ? CERNER MILLENNIUM Urine specimen obtained by clean catch procedure (specimen) 06/22/2012 4:44 PM EST 06/22/2012 4:44 PM EST Narrative Resulting Agency Comment Spec In Lab Casey Velasco MD MICROBIOLOGY - GENER AL ORDERABLES CERNER MILLENNIUM * (ABNORMAL) Urinalysis with microscopic (06/22/2012 3:33 PM EST) Glucose, Urine Dipstick Negative Negative mg/dL CERNER MILLENNIUM Protein, Urine Dipstick Trace(A) Neg mg/dL CERNER MILLENNIUM Bilirubin, Urine Dipstick Negative Negative mg/dL CERNER MILLENNIUM Urobilinogen, Urine Dipstick Normal mg/dL CERNER MILLENNIUM pH, Urn (dipstick) 6.0 5.0 - 8.0 CERNER MILLENNIUM Blood, Urine Dipstick Negative mg/dL CERNER MILLENNIUM Ketone, Urine Dipstick Negative mg/dL CERNER MILLENNIUM Nitrite, Urine Dipstick Negative CERNER MILLENNIUM Leukocytes, Urine Dipstick Moderate mcL CERNER MILLENNIUM Appearance, Urine Dipstick Hazy(A) Clear CERNER MILLENNIUM Specific [place] Urine Automated 1.016 1.002 - 1.030 CERNER MILLENNIUM Color, Urine Dipstick Yellow Yellow CERNER MILLENNIUM RBC, Urine 3 0 - 4 /HPF CERNER MILLENNIUM WBC, Urine 1 0 - 5 /HPF CERNER MILLENNIUM Bacteria, Urine Occasional /HPF CER NER MILLENNIUM Squamous Epithelial Cells, Urine 10(H) <=4 /HPF CERNER MILLENNIUM Transitional Epithelial Cells, Urine <1 <=1 /HPF CERNER MILLENNIUM Urine specimen (specimen) 06/22/2012 3:33 PM EST 06/22/2012 4:26 PM EST Narrative Resulting Agency Comment Spec In Lab Casey Velasco MD URINE ORDERABLES [facility] documented in this encounter Visit Diagnoses Diagnosis Urge incontinence- Primary documented in this encounter Care Teams Mutuel Teller Relationship Specialty Start Date End Date Gina Morales MD [facility] [address] [place] [address] [place] [address] PCP - General 01/18/11 01/27/14 documented as of this encounter
--- OUTSIDE RECORDS SUMMARY | 2024-01-10 02:03 | XMS_ITS | Encounter Summary ---
Author Organization [facility] Address [facility] [place] [address] Care Team Providers Care Manager Plant Name Role Phone Gina Morales MD Primary Care Provider [phone] Encounter Details Date Type Department Care Team (Late st Contact Info) Description 09/06/2013 Notes Only Obstetrics [place] [address] Lela Jaramillo, RN Social History Tobacco Use Types Packs/Day [...] Progress Notes * Lela Jaramillo, RN - 09/06/2013 5:22 PM EDT Review of Bladder Diary Dates diary completed: no dates written done, only a 2 day diary Volume intake: 591 cc - 1419 cc Volume output: 3105 cc -4051 cc Number of daytime voids: 7 - 9 Number of nocturia events: 2 -3 Functional bladder capacity: 768 cc Nocturia Index: Number of leakage events per day: No charted Other notable findings (e.g. caffeine consumption, etc.) Incomplete diary, not all fluid intake charted See urodynamic testing note from 09/24/13 Final Impression: Prior incomplete emptying (PVR = 230 mL on 08/22/13 exam) and prior sling. Today, emptying normally with normal uroflowmetry and voiding pressure flow study. Urge urinary incontinence by symptoms, diary, but no detrusor overactivity on urodynamic testing. Baseline constipation. Recommendations: For now, I recommended starting bladder drill training. She has worked on pelvic floor exercises inthe past with PT near [place]. I would be reluctant to start an anticholinergic agent based on her incomplete emptying on prior evaluation and constipation history. CASEY VELASCO MD Division of Female Pelvic Medicine & Reconstructive Surgery documented in this encounter Plan of Treatment Not on file documented as of this encounter Visit Diagnoses Not on filedocumented in this encounter Care Teams Manager Plant Relationship Specialty Start Date End Date Gina Morales MD [facility] [address] [place] [address] [place] [address] PCP - General 01/18/11 01/27/14 documented as of this encounter
--- OUTSIDE RECORDS SUMMARY | 2024-01-10 02:03 | XMS_ITS | Encounter Summary ---
Author Organization [facility] Address [facility] [place] [address] Care Team Providers Care Nuclear Instructor Name Role Phone Shashi Verma Primary Care Provider [phone] Encounter Details Date Type Department Care Team (Late st Contact Info) Description 02/20/2017 1:00 PM EDT Office Visit [place] [address] Yossi Morales APRN [facility] [address] [place] [address] Irritable bowel syndrome with constipation Social History [...] Progress Notes * Yossi Morales RN - 02/20/2017 1:00 PM EDT _27___minutes of this_33___-minute visit were spent in face to face discussion and/or counseling the patient, regarding symptoms and treatment options as detailed below. Pt is here for follow up regarding progress with medical regimen. Pt is using miralax prn. Having a stool about once per week. At times has to use stool softener. Sometimes hard. Has to strain. Still some difficulty emptying. Pt saw PT for pelvic floor dysfunction. Finished this summer. She has found helpful. She is not having stool or urine leakage. Sometimes uses hand to manipulate stool. We discussed using a foot stool. Avoiding gaseous foods. Pt was placed on Vyvanse. She lost 90 pounds over the last year. Today is 155 pounds. Per pt thyroid was checked and it was normal. Pt is using protonix 40mg qd. Sometimes does not take it. Seems to help her reflux. Also, she has to avoid certain foods. No dysphagia, odynophagia, n/v. Hbt: positive;sibo Pelvic mri with defecography IMPRESSION ?? Anterior compartment: mild (2-4cm) descent. Urethral hypermobility with cystocele. Middle compartment: Normal (0-2cm). Posterior compartment: Marked (>6cm) descent. Rectocele, as above. No enterocele.Peritoneocele, as above. Rectal prolapse:Internal mucosal ?? Plan: 1. IBS-C: miralax 1-3 capfuls qd to qod. 2. Pelvic floor dysfunction: foot stool; appropriate positioning; continue with PT exercises 3. Sibo: neomycin 1000mg bid x 10 days 4. Gerd: protonix 40mg qd 5. Gif in 3 months documented in this encounter Plan of Treatment Not on file documented as of this encounter Visit Diagnoses Diagnosis Irritable bowel syndrome with constipation Irritable bowel syndrome documented in this encounter Care Teams Nuclear Instructor Relationship Specialty Start Date End Date Shashi Verma [address] [place] [address] PCP - General Family Medicine 04/06/16 01/14/20 documented as of this encounter
--- OUTSIDE RECORDS SUMMARY | 2024-01-10 02:04 | XMS_ITS | Encounter Summary ---
Author Organization [facility] [address] Care Team Providers Care Design Verification Engineer Name Role Phone Gina Morales MD Primary Care Provider [phone] Encounter Details Date Type Department Care Team (Late st Contact Info) Description 03/28/2011 11:30 AM EDT Office Visit [place] [phone] [place] Sid[place], [place] Social History Tobacco Use Types Packs/Day Years [...] on filedocumented in this encounter Care Teams Design Verification Engineer Relationship Specialty Start Date End Date Gina Morales MD [facility] [address] [place] [address] [place] [address] PCP - General 01/18/11 01/27/14 documented as of this encounter
--- OUTSIDE RECORDS SUMMARY | 2024-01-10 02:04 | XMS_ITS | Encounter Summary ---
Author Organization [place] [address] Care Team Providers Care Sheet Metal Duct Installer Apprentice Name Role Phone Gina Morales MD Primary Care Provider [phone] Encounter Details Date Type Department Care Team (Late st Contact Info) Description 01/18/2011 Abstract Obstetrics [place] [phone] Pao Vuong, RN Social History Tobacco Use Types Packs/Day Years Used Date Smoking Tobacco: Never Assessed Sex and Gender Information Value Date Recorded Sex Assigned at Not on file Gender Identity Not on file Sexual Orientation Not on file documented as of this encounter Plan of Treatment Not on file documented as of this encounter Visit Diagnoses Not on filedocumented in this encounter Care Teams Sheet Metal Duct Installer Apprentice Relationship Specialty Start Date End Date Gina Morales MD [facility] [address] [place] [address] PCP - General 01/18/11 01/27/14 documented as of this encounter
--- OUTSIDE RECORDS SUMMARY | 2024-01-10 02:04 | XMS_ITS | Encounter Summary ---
Author Organization [facility] Address [facility] [place] [address] Care Team Providers Care Distribution Field Technician Name Role Phone Gina Morales MD Primary Care Provider [phone] Encounter Details Date Type Department Care Team (Latest Contact Info) Description 03/22/2011 12:43 PM EDT - 03/22/2011 11:59 PM EDT [place] [phone] Delmer Velasco MD [facility] OBSTETRICS [place] [address] Discharge Disposition: Home Social History Tobacco Use [...] Sig Dispensed Refills Start Date End Date docusate sodium (COLACE) 100 mg capsule Take 1 capsule by mouth 2 times daily for 10 days. 30 capsule 2 03/30/2011 04/09/2011 HYDROmorphone (DILAUDID) 2 mg tablet Take 1-2 tablets by mouth every 4 hours as needed for Pain. 30 tablet 0 03/30/2011 08/23/2011 estrogen, conjugated,-medroxyprog esterone (PREMPRO) 0.3-1.5 mg per tablet Take 1 tablet by mouth daily. 06/22/2012 simvastatin (ZOCOR) 20 mg tablet Take 40 mg by mouth nightly. 09/01/2015 sertraline (ZOLOFT) 100 mg tablet Take 200 mg by mouth daily. 08/05/2015 traZODone (DESYREL) 50 mg tablet Take 50 mg by mouth nightly. 08/23/2011 QUEtiapine (SEROQUEL XR) 200 mg 24 hr tablet Take 200 mg by mouth nightly. 06/22/2012 methylphenidate (METADATE ER) 20 mg ER tablet Take 20 mg by mouth every morning. 08/23/2011 pantoprazole (PROTONIX) 40 mg tablet Take 40 mg by mouth daily. 08/22/2013 ibuprofen (ADVIL;MOTRIN) 800 mg tablet Take 800 mg by mouth every 8 hours as needed. 03/30/2011 Cholecalciferol, Vitamin D3, (VITAMIN D) 1,000 unit Tab Take 1 tablet by mouth daily. 06/22/2012 divalproex (DEPAKOTE) 500 mg EC tablet Take 1,000 mg by mouth every evening. 08/22/2013 documented as of this encounter Plan of Treatment Not on file documented as of this encounter Procedures Procedure Name Priority Date/Time Associated Diagnosis Comments DIFFERENTIAL, AUTOMATED Routine 03/22/2011 1:00 PM EDT CREATININE Routine 03/22/2011 1:00 PM EDT CBC (WITH DIFF) Routine 03/22/2011 1:00 PM EDT BUN Routine 03/22/2011 1:00 PM EDT ELECTROLYTES PANEL Routine 03/22/2011 1: 00 PM EDT documented in this encounter Results * A-DIFF (03/22/2011 1:00 PM EDT) Neutrophil % 41.9 34.0 - 71.0 % CERNER MILLENNIUM Neutrophil Absolute 1.99 1.50 - 6.30 x10(3)/mcL CERNER MILLENNIUM Lymph % 44.3 19.0 - 53.0 % CERNER MILLENNIUM Lymphocytes Abs 2.1 1.0 - 3.6 x10(3)/mcL CERNER MILLENNIUM Monocyte % 10.5 4.0 - 13.0 % CERNER MILLENNIUM Monocyte Abs 0.5 0.2 - 1.0 x10(3)/[facility] CERNER MILLENNIUM Eos % 2.9 0.0 - 7.0 % CERNER MILLENNIUM Eosinophils Abs 0.1 0.0 - 0.5 x10(3)/[facility] CERNER MILLENNIUM Basophil % 0.2 0.0 - 2.0 % CERNER MILLENNIUM Baso Absolute 0.0 0.0 - 0.2 x10(3)/[facility] CERNER MILLENNIUM Immature Gran % 0.20 0.00 - 0.66 % CERNER MILLENNIUM Comment: Immature granulocytes(IG's)percentage and absolute count will include metamyelocytes, myelocytes, and promyelocytes. Blood smears from CBCs yielding IG's will be scanned manually for concordance. If this scan disagrees with the automated IG or if promyelocytes are noted, a manual differential will be performed. Immature Gran Absolute 0.01 0.00 - 0.05 x10(3)/[facility] CERNER MILLENNIUM Blood specimen (specimen) 03/22/2011 1:00 PM EDT 03/22/2011 1:26 PM EDT Delmer Velasco MD [facility]OLOGY [facility]ABLE S [facility] * (ABNORMAL) Creatinine, serum (03/22/2011 1:00 PM EDT) Creatinine 0.61(L) 0.70 - 1.20 mg/dL CERNER MILLENNIUM Est Glomerular Filtration Rate >60 >=60 CERNER MILLENNIUM Comment: The National Kidney Disease Education Program (NKDEP) has recommended all laboratories report estimated GFR (eGFR) along with plasma creatinine measurements to assist you with recognition of early kidney disease. Caveats: ??Plasma creatinine should be at steady-state (unchanged within the past week). For patients multiply eGFR by 1.2.MDRD equation has not been validated for pediatric patients and is only valid for patients with age >= 18 years. At present, NKDEP does NOT recommend using the MDRD equation for drug dosing purposes and pharmacists should continue to use their current dosing methods. In addition, numerical eGFR values greater than 60 ml/min/1.73 square meters should be treated as > 60, and not an exact number due to greater inaccuracies at these higher values. Per NKDEP, they classify normal renal function as any GFR >60ml/min/1.73 square meters; chronic kidney disease when GFR <60, and renal failure when GFR <15. ??This calculation may not be valid for patients with atypical muscle mass (very lean or obese), acute renal failure, and in patients with diabetic kidney disease. References: http://nkdep.nih.gov/resources/NKDEP_Suggestn4Labs_0606_508.pdf http://www.kidney.org/professionals/kls/pdf/faq_gfr.pdf Blood specimen (specimen) 03/22/2011 1:00 PM EDT 03/22/2011 1:26 PM EDT Delmer Velasco MD CHEMISTRY ORDERABLES Performing Organization Address [facility] de Phone Number [facility] HMS HealthENNIUM * BUN (03/22/2011 1:00 PM EDT) Blood Urea Nitrogen 8 8 - 18 mg/dL CERNER MILLENNIUM Blood specimen (specimen) 03/22/2011 1:00 PM EDT 03/22/2011 1:26 PM EDT Delmer Velasco MD CHEMISTRY ORDERABLES Performing Organization Address [facility] de Phone Number [facility] MILLENNIUM * (ABNORMAL) Electrolytes panel (03/22/2011 1:00 PM EDT) Sodium 131(L) 135 - 145 mmol/L CERNER MILLENNIUM Potassium 4.9 3.5 - 5.0 mmol/L CERNER MILLENNIUM Comment: Please note: ??Patients with WBC >100,000 may have falsely elevated Potassium levels. ??For accurate Potassium quantification in these patients send serum separator tube (gold top) for subsequent determinations. ??Contact the Clinical Chemistry Laboratory if there are any questions. Chloride 95(L) 98 - 107 mmol/L CERNER MILLENNIUM Carbon Dioxide 29 22 - 31 mmol/L CERNER MILLENNIUM Anion Gap 7 5 - 15 mmol/L CERNER MILLENNIUM Blood specimen (specimen) 03/22/2011 1:00 PM EDT 03/22/2011 1:26 PM EDT Delmer Velasco MD CHEMISTRY ORDERABLES Performing Organization Address City/[facility]/ZIP Co de Phone Number CERFERNANDO MORRISIUM * CBC (with Diff) (03/22/2011 1:00 PM EDT) White Blood Cell 4.8 4.0 - 10.0 x10(3)/mcL CERNER MILLENNIUM Red Blood Cell 4.47 3.93 - 5.22 x10(6)/mcL CERNER MILLENNIUM Hemoglobin 12.2 11.2 - 15.7 gm/dL CERNER MILLENNIUM Hematocrit 36.8 34.0 - 45.0 % CERNER MILLENNIUM Mean Cell Volume 82.3 79.0 - 94.0 fL CERNER MILLENNIUM Mean Cell Hemoglobin 27.3 26.6 - 32.2 pg CERNER MILLENNIUM Mean Cell Hemoglobin Concentration 33.2 32.0 - 36.5 gm/dL CERNER MILLENNIUM Platelet 224 145 - 370 x10(3)/mcL CERNER MILLENNIUM RDW Standard Deviation 40.7 35.0 - 46.0 fL CERNER MILLENNIUM RDW coefficient of variation 13.5 10.9 - 14.4 % CERNER MILLENNIUM Mean Platelet Volume 10.2 9.0 - 12.0 fL CERNER MILLENNIUM Blood specimen (specimen) 03/22/2011 1:00 PM EDT 03/22/2011 1:26 PM EDT Delmer Velasco MD HEMATOLOGY ORDERABLE S Performing Organization Address City/[facility] Co de Phone Number MIGUELITO ZAMAN documented in this encounter Visit Diagnoses Not on filedocumented in this encounter Care Teams Distribution Field Technician Relationship Specialty Start Date End Date Gina Morales MD [facility] [address] [place] [address] [place] [address] PCP - General 01/18/11 01/27/14 documented as of this encounter
--- OUTSIDE RECORDS SUMMARY | 2024-01-10 02:04 | XMS_ITS | Encounter Summary ---
Author Organization [facility] Address [facility] [place] [address] Care Team Providers Care Binder Stripper Hand Name Role Phone Gina Rodgers MD Primary Care Provider Encounter Details Date Type Department Care Team (Latest Contact Info) Description 03/28/2011 10:11 AM EDT - 03/30/2011 10:20 AM EDT Hospital Encounter [address] [place] [address] Delmer Tellez MD [facility] OBSTETRICS [place] [address] Uterovaginal prolapse, incomplete; Fecal incontinence; Urinary incontinence Discharge Disposition: Home with VNA Social History Tobacco Use Types Packs/Day Years [...] Sign Reading Time Taken Comments Blood Pressure 104/74 03/30/2011 6:00 AM EDT Pulse 76 03/30/2011 6:00 AM EDT Temperature 36.5 ??C (97.7 ??F) 03/30/2011 6:00 AM ED T Respiratory Rate 17 03/30/2011 6:00 AM EDT Oxygen Saturation 98% 03/30/2011 6:00 AM EDT Inhaled Oxygen Concentration - - Weight 104.3 kg (230 lb) 03/29/2011 9:10 AM EDT Height 165.1 cm (5' 5) 03/29/2011 9:10 AM EDT Body Mass Index 38.27 03/29/2011 9:10 AM EDT documented in this encounter Discharge Instructions * Patient Instructions* Seferino Bull MD - 03/30/2011 7:20 AM EDT PATIENT DISCHARGE INSTRUCTIONS UroGynecology phone number: [phone] Call your doctor if you develop: --A fever over 101 degrees --Severe pain --Heavy vaginal bleeding --Increasing pain, redness, or discharge at your incisions Activity level: No heavy lifting, pushing or pulling for 6 weeks. No sexual intercourse, no tampons, nothing in the vagina for 6 weeks. Diet: You may resume your regular diet. Be sure you drink plenty of fluids. Please use colace 100-200mg twice daily for the entire time that you are taking pain medication to keep your bowel movements soft and regular. If you are constipated or have not had a bowel movement in 3 days, please use milk of magnesia (or miralax) as directed over the counter. Driving: Do not drive until you are off of all narcotic medications and you are not feeling pain Shower/Bath: You may resume your normal routine. Wound Care: Your skin incisions are closed with skin glue, which will wash off after several days. Special Physician Instructions: Pain medications include ibuprofen. Please use motrin 600 mg every 6 hours with food around the clock for the next several days and then after that use it only as needed. documented in this encounter Medications at Time [...] Take 40 mg by mouth daily. 08/22/2013 Cholecalciferol, Vitamin D3, (VITAMIN D) 1,000 unit Tab Take 1 tablet by mouth daily. 06/22/2012 divalproex (DEPAKOTE) 500 mg EC tablet Take 1,000 mg by mouth every evening. 08/22/2013 documented as of this encounter Progress Notes * Ruddy Granados RN - 03/30/2011 10:34 AM EDT Met with Shobha this morning and she is doing much better and more alert. She is dressed and ready to leave and indicates that her ride is coming @ 11AM. TC to MD re need for PT evaluation and VNA services at discharge. Met with Shobha who indicates that she does want VNA services checking on her. Reviewed fluid intake, activity, pain control and bowel management. She appeared to understand. Awaiting d/c order, instructions, prescriptions and ride. RUDDY GRANADOS RN 03/30/2011 * Delmer Tellez MD - 03/30/2011 6:30 AM EDT Progress Note - Inpatient Gynecology Patient ID: Ms. Shobha Díaz is a 51 year old woman POD # 2 s/p TVH, uterosacral ligament suspension of vagina and posterior colphorraphy for uterovaginal prolapse. S: Ms Díaz is doing well this morning. She complains of some cold-like symptoms over night with a sore throat, cough and general malaise. This morning her sore throat and cough have resolved, though she still feels tired. Her pain is well controlled with ibuprofen. She is tolerating a regular diet, ambulating, producing adequate urine and passing flatus. She has not yet had a bowel movement. O: Last value Range last 24 hrs Temperature Temp: 36.9 ??C (98.4 ??F) Temp: [36.6 ??C (97.9 ??F)-37.1 ??C (98.8 ??F)] Heart Rate Heart Rate: 64 Heart Rate: [52-83] Blood Pressure BP: 98/54 mmHg BP: (98-162)/(54-80) Respiratory Rate Resp: 16 Resp: [11-18] SpO2 SpO2: 96 % SpO2: [95 %-100 %] Intake Output: 720 in/1450 out EXAM: General: well-appearing woman lying comfortably in bed CV: Regular rate and rhythm, no murmurs, rubs or gallops. Pulm: breath sounds heard in all warren, with course crackles in BL upper warren, clear lower warren Abdomen: BS active, soft, non-distended, no guarding, non-tender to palpation throughout : no vaginal bleeding Vascular: no UE/LE swelling Labs: WBC 8.3 from 7.6 HGB 11.2 from 9.9 Na 124 from 124 K 4.5 from 3.9 Cl 88 from 87 A/P: Shobha Díaz is a 51 year old woman POD # 2 s/p TVH, uterosacral ligament suspension of vaginaand posterior colphorraphy for uterovaginal prolapse. Now in stable condition. Neuro: pain well controlled with ibuprofen Respiratory: some course crackles in upper lungs, clear with coughing Heme/Cardiac: no issues Fen/GI: continue with no IVF, hyponatremia stable : producing adequate urine Dispo: dc to home today SEFERINO BULL MD 03/30/11 [facility]ISION FEM[facility] PELVIC MEDICINE & RECONSTRUCTIVE SURGERY STAFF INPATIENT CO-NOTE I saw Ms. Díaz today and reviewed her history. She is post-operative day #2 from vaginal hysterectomy, uterosacral ligament suspension, posterior colporrhaphy, midurethral sling. I have reviewed Dr. Bull's note above and agree with the history she outlines. The patient is muchmore comfortable today. She is ambulating and tolerating PO well. I examined the patient and agree with the documented findings above. Pertinent findings include: Stable vitals, afebrile. I agree with the diagnosis of POD day #2. I agree with the plans outlined above. We reviewed discharge instructions. DELMER TELLEZ MD, MD Division of Female Pelvic Medicine & Reconstructive Surgery * Ruddy Granados RN - 03/29/2011 4:54 PM EDT 4PM called by WALKING DRAGLINE OPERATOR internet programmer indicating that Ms Díaz ahchino no ride home. Advised her that SW could make those arrangements and VNA could be set-up to see her tomorrow at home. She had made no plan for anyone to see her at home after surgery. LILIANA Mathews notified and will talk with this patient if needed. Another options per Cassi would be [facility] until someone could get her tomorrow as she is medically stable. MD notified. 4:40PM MD indicates that atPt evaluation will be done for tomorrow for ? Instability, Requested that VNA referral be made to assess at home. Referral sent to [facility] via e- discharge for activation on 03-31-11. RUDDY GRANADOS RN 03/29/2011 * Rosio Springer - 03/29/2011 4:52 PM EDT Progress Note Shobha is feeling very timid about going home. She states that at home she lives alone and has occasionally fallen due to her knees giving out on her. She has been walking with a walker since her surgery and has felt her knees give out on her a couple of times since her surgery but denies any falls. She denies any dizziness but overall feels weak. She has tolerated a regular diet and passed a voiding trial. She has been doing word searches this afternoon and is just about to take a shower, using a shower chair. She also has been hyponatremic since her surgery. Exam remains benign, vitals are stable with good UOP, and Hgb is stable. Hyponatremia is likely due to priscilla- operative fluid shifts. We will continue to monitor overnight due to reported instability. PT consult tomorrow morning. Re-check Lytes and CBC in the AM. Ref. Range 03/29/2011 05:08 03/29/2011 14:24 WBC Latest Range: 4.0-10.0 x10(3)/mcL 8.9 7.6 Hemoglobin Latest Range: 11.2-15.7 gm/dL 10.8 (L) 9.9 (L) Hematocrit Latest Range: 34.0-45.0 % 31.1 (L) 29.6 (L) Platelets Latest Range: 145-370 x10(3)/mcL 189 180 Sodium Latest Range: 135-145 mmol/L 126 (L) 124 (L) Potassium Latest Range: 3.5-5.0 mmol/L 3.8 3.9 Chloride Latest Range: 98-107 mmol/L 89 (L) 87 (L) CO2 Latest Range: 22-31 mmol/L 23 27 Anion Gap Latest Range: 5-15 mmol/L 11 10 BUN Latest Range: 8-18 mg/dL 6 (L) Creatinine Latest Range: 0.70-1.20 mg/dL 0.55 (L) Estimated GFR Latest Range: >=60 >60 * Delmer Tellez MD - 03/29/2011 7:43 AM EDT Gynecology - Progress Note ID: Shobha Díaz is a 51 y.o. woman post operative day # 1 s/p TVH, uterosacral vault suspension,posterior colporraphy and TOT sling. Problem List: ?? Pelvic organ prolapse ?? Bipolar ?? Learning disability ?? Hyperlipidemia Subjective: Shobha states that she is feeling well this morning. She notes some discomfort when shemoves but is mostly comfortable. She has been using toradol and dilaudid for her pain. She has beentolerating clears without any N/V and is hungry this morning. No flatus yet. Vaginal bleeding has been minimal. She ambulated this morning around her room without any difficulty but states that she felt weak and is reluctant to go home by herself today due to this. Meds: ?? Dilaudid ?? Ibuprofen ?? Depakote ?? Methylphenidate ?? Seroquel ?? Zoloft ?? Zocor ?? Trazodone ?? Colace ?? Nexium ?? Zofran Physical Exam: Last value Range last 24 hrs Temperature Temp: 37 ??C (98.6 ??F) Temp: [36.1 ??C (97 ??F)-37.1 ??C (98.8 ??F)] Heart Rate Heart Rate: 78 Heart Rate: [63-96] Blood Pressure BP: 112/62 mmHg BP: (112-145)/(62-89) Respiratory Rate Resp: 20 Resp: [12-20] SpO2 SpO2: 94 % SpO2: [93 %-100 %] Physical Exam General: Well appearing middle aged woman, sitting comfortably in bed CV: Regular rhythm, normal rate, no m/r/g Lungs: CTAB, no wheezes or rales Abdomen: Normoactive bowel sounds, obese, soft, non-tender : Moss in place, minimal red vaginal bleeding on pad Extremities: No edema or calf tenderness, SCDs in place Laboratory: Ref. Range 03/29/2011 05:08 WBC Latest Range: 4.0-10.0 x10(3)/mcL 8.9 Hemoglobin Latest Range: 11.2-15.7 gm/dL 10.8 (L) 12.2 pre-op Hematocrit Latest Range: 34.0-45.0 % 31.1 (L) Platelets Latest Range: 145-370 x10(3)/mcL 189 Sodium Latest Range: 135-145 mmol/L 126 (L) Potassium Latest Range: 3.5-5.0 mmol/L 3.8 Chloride Latest Range: 98-107 mmol/L 89 (L) CO2 Latest Range: 22-31 mmol/L 23 Anion Gap Latest Range: 5-15 mmol/L 11 BUN Latest Range: 8-18 mg/dL 6 (L) Creatinine Latest Range: 0.70-1.20 mg/dL 0.55 (L) Estimated GFR Latest Range: >=60 >60 Assessment and Plan: Shobha Díaz is a 51 y.o. woman post operative day # 1 s/p TVH, uterosacral vault suspension, posterior colporraphy and TOT sling. She is doing well and advancing appropriatelyalthough tentative to go home today. She is hyponatremic and I am unclear as to the origin or this - it is possibly due to fluid shifts that occurred priscilla-operatively and will likely correct once shestarts eating a regular diet and is discontinued from her IVF. Pain Control: Continue PO Dilaudid and ibuprofen Cardiac: Continue to monitor vitals. No issues. Continue home medication Zocor. Pulmonary: Keep SpO2 >90%. Encourage incentive spirometry. Gastrointestinal: ADAT. Anti-emetics prn. Colace Genitourinary: Backfill bladder test. Monitor vaginal bleeding Fluid/ Electrolytes: HLIV. Check Lytes, BUN and Cr daily. Hyponatremia will likely self correct. Heme: No issues. Check CBC daily ID: Received prophylactic antibiotics. No issues currently. Endo: No issues. Psych: Continue home medications Depakote, methylphenidate, seroquel, zoloft and trazodone Prophylaxis: Encourage ambulation and incentive spirometry. SCDs Dispo: Likely home this afternoon ROSIO SPRINGER MD 03/29/2011 [facility] PELVIC MEDICINE & RECONSTRUCTIVE SURGERY STAFF INPATIENT CO-NOTE I saw Ms. Díaz today and reviewed her history. She is post-operative day #1 a vaginal hysterectomy, uterosacral ligament suspension, posterior repair and mid- urethral sling procedure. I have reviewed Dr. Springer's note above and agree with the history she outlines. The patient is relatively sedated during my visit with her and drifts back to sleep mid-sentence. She did tolerate breakfast. She has not voided yet. I examined the patient and agree with the documented findings above. Pertinent findings include: Stable vitals, afebrile. Abdomen soft, minimal tenderness. I agree with the diagnosis of POD day #1 She has hyponatremia, likely to resolve with stopping IV fluids, return to regular diet. The patient expressed concerns about ambulating. She is oversedated at present. I agree with the plans outlined above. Reassess in early afternoon. Stop IV fluids. Recheck lytes, cbc early afternoon. DELMER TELLEZ MD, MD Division of Female Pelvic Medicine & Reconstructive Surgery * Sonja Martinez RN - 03/28/2011 10:28 PM EDT Received from PACU in stable condition. A&O X3, lungs clear and respirations easy on room air. Hypoactive bowel sounds without c/o nausea. IV patent and infusing well into right arm. Moss patentand draining slightly blue tinged urine. No vaginal drainage noted. * Rubén Gay - 03/28/2011 10:03 PM EDT Gynecology - Progress Note- Post Op Check Shobha Díaz is an 51 y.o. woman post operative day 0 s/p total vaginal hysterectomy, uterosacralligament suspension, posterior colporrhaphy and Monarc mid-urethral sling. Subjective: She has complains of some cramps.. Pain is controlled on IV Toradol and Dilaudid. She not yet ambulating with assistance. She is tolerating a regular diet. She denies vomiting, cough, difficulty breathing and chest pain. Physical Exam: Last Set of Vitals and range of vitals over past 24 hours: Last value Range last 24 hrs Temperature Temp: 36.4 ??C (97.5 ??F) Temp: [36.1 ??C (97 ??F)-36.6 ??C (97.9 ??F)] Heart Rate Heart Rate: 80 Heart Rate: [63-96] Blood Pressure BP: 145/89 mmHg BP: (115-145)/(68-89) Respiratory Rate Resp: 16 Resp: [12-18] SpO2 SpO2: 98 % SpO2: [93 %-100 %] Date 03/28/11 0700 - 03/29/11 0659 Shift 0043-2621 2308-0038 2332-6907 24 Hour Total I N T A K E P.O. 300 300 I.V. 1575 1575 Shift Total 1875 1875 O U T P U T Urine 945 945 Blood 150 150 Shift Total 1095 1095 Weight (kg) Physical Exam Constitutional: She is oriented to person, place, and time. No distress. Cardiovascular: Normal rate, regular rhythm and normal heart sounds. No murmur heard. Pulmonary/Chest: Effort normal and breath sounds normal. No respiratory distress. Abdominal: Soft. Bowel sounds are normal. She exhibits no distension. No tenderness. Genitourinary: Moss in place Neurological: She is alert and oriented to person, place, and time. Skin: Skin is warm and dry. Psychiatric: She has a normal mood and affect. Assessment and Plan: Shobha Díaz is an 51 y.o. year old woman POD #0 s/p total vaginal hysterectomy, uterosacral ligament suspension, posterior colporrhaphy and Monarc mid-urethral sling in stable condition, pain controlled and adequate urine output. No concerns at this time. 1) Pain: Advance to po pain medications in the AM. 2) Cardiovascular: No issues. 3) Pulmonary: No issues 4) FEN/GI: tolerating a regular diet , urine output adequate, will continue to advance diet as tolerated, continue bowel regimen 5) Genitourinary: Moss in place, draining well , lytes and BUN/Cr pending in am. Voiding trial in AM. 6) ID: No issues. 7) DM/Endocrine: No issues 8) Neuro: No issues 9) Prophylaxis: Nexium, SCD's on and active while in bed, ambulate 10) Disposition: Continue in patient post-operative care. RUBÉN GAY MD 03/28/2011 * Sonja Martinez RN - 03/28/2011 10:00 PM EDT Bedding changed for moderate amount of bloody vaginal drainage. Peripad placed. documented in this encounter H&P Notes * Rubén Gay - 03/28/2011 11:06 AM EDT Inpatient GUT CARRIER - Admission Interval Note I have reviewed the pre-procedure H&P completed by Elizabeth Grigsby on 03/22/11. (x) Condition changed since H&P originally performed. See interval note below. Interval Note: Patient notes she had a fall after her pre-op visit and hit her right knee. She complains of some pain in the right leg medially in the region of the saphenous vein. Physical exam negative for swelling or erythema. However given her symptoms and the likely length of her procedure today, will perform right leg duplex study to rule out DVT before surgery. Patient seen with Dr Tellez A copy of this document will be sent to the patient's Primary Care Physician and/or Referring Physician. RUBÉN GAY MD 03/28/2011 documented in this encounter Procedure Notes * Provider, Scanning - 03/31/2011 11:41 AM EDTAssociated Order(s): SCAN DOC: IMPLANTABLE DEVICES documented in this encounter Miscellaneous Notes * Miscellaneous - Provider, Scanning - 03/31/2011 11:41 AM EDT * Initial Assessments - Ruddy Granados RN - 03/29/2011 10:23 AM EDT Office of Care Management (OCM) / Clinical Finisher [employer] (CRC)/ Initial Assessment Discussed patient with Provider Team Reviewed record and interviewed patient. Introduced/reviewed CRC role and services accepted. REASON for HOSPITALIZATION: Uterovaginal prolapse, incomplete , s/pHYSTERECTOMY, VAGINAL, <250 GRAMS COLPOPEXY, VAGINAL, INTRAPERITONEAL APPROACH URETHRAL SUSPENSION, SLING\FASCIA OR SYNTHETIC COLPORRHAPHY, POST RECTOCELE WITH OR W\O PERINEORRHAPHY , IVF, OOB chair, moss BSD, I&O, labs,c/o weakness/groggy this am. PMH/PSH: See H&P PREVIOUS FUNCTIONAL STATUS: Independent CURRENT FUNCTIONAL STATUS: bedrest, OOB/chair//anmbulate w staff SOCIAL / FAMILY SUPPORTS , 51 yea rold female residing in [place], [place] alone in a second floor apartment. She has friends who will pick her up at discharge. 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 ADVANCE DIRECTIVES: None on file. INSURANCE COVERAGE / FINANCIAL ISSUES: [place] [employer] with copays for prescriptions. CURRENT HOME/COMMUNITY SERVICES/EQUIPMENT: DME: Denies any Home Health Agency: None Other: [employer] REFERRAL: No issues identified at this time. PRIMARY CARE PHYSICIAN: GINA RODGERS MD [address] / [place] [address] POTENTIAL DISCHARGE NEEDS: None anticipated at this time. PATIENT/FAMILY EDUCATION NEEDS: Pain, bowel, fluid, activity,medications ANTICIPATED BARRIERS TO DISCHARGE: Lives alone and no arrangements to have friends stay with her. TRANSPORTATION @ D/C: Friends per her report. PLAN: CRC will continue to monitor progress, follow for continuity of care and assist with discharge planning while hospitalized Referrals to be made as appropriate and per patient preference. RN to review instructions, medications, activity and f/u appointment with this patient prior to discharge.RUDDY GRANADOS RN 03/29/2011 * Op Note - Delmer Tellez MD - 03/28/2011 4:31 PM EDT [facility] [place] Operative Note Patient Name: Shobha Díaz : [id number] MR#: [id number] Case Date: 03/28/2011 Surgeon: Surgeon(s) and Role: * DELMER TELLEZ MD - Primary * RUBÉN GAY MD - Resident-Shank Skinner Preoperative diagnosis: Uterovaginal prolapse, incomplete Postoperative diagnosis: uterovaginal prolapse Procedure(s): HYSTERECTOMY, VAGINAL, <250 GRAMS COLPOPEXY, VAGINAL, INTRAPERITONEAL APPROACH URETHRAL SUSPENSION, SLING\FASCIA OR SYNTHETIC COLPORRHAPHY, POST RECTOCELE WITH OR W\O PERINEORRHAPHY Anesthesia: General endotracheal tube. Estimated Blood Loss: 150 mL Fluids In: 1300 mL crystalloid Fluids Out: 725 mL urine Drains: Moss to gravity drainage. Disposition: awakened from anesthesia, extubated and taken to the recovery room in a stable condition, having suffered no apparent untoward event. Condition: doing well without problems (Please see the Surgical Encounter Summary for any Implant and Specimen details pertinent to this patient.) HPI/Surgical Indications: Ms. Díaz is a 51 year old woman with symptomatic prolapse, urinary incontinence. She desires surgical repair. Findings: Uterus mobile, weight 102 gm by weight at hysterectomy. Cystocele and rectocele. Normal adnexae. Cystoscopy with patent ureteral orifices bilaterally, free spill of indigo carmine. Normal bladder, urethral mucosa. Procedure Description: The patient was brought to Operating Room #27. General anesthesia was induced. The patient was positioned in the dorsal lithotomy position with her legs in adjustable Yellofin stirrups in what was felt to be neurologically safe positioning. Exam under anesthesia was performed. She had knee-high intermittent pneumatic compression stockings on throughout the procedure for DVT prophylaxis. She received 2 gm cefazolin IV on-call prior to skin incision for prophylaxis. She was prepped and draped in the usual sterile fashion. Prior to starting the procedure a time-outprotocol was adhered to confirming the patient's identity, planned procedures, and safety measures. The hysterectomy was initiated by first infiltrating the cervical portio with dilute vasopressin solution (20 units in 100 mL of normal saline). A weighted speculum had been introduced into the vagina and thyroid-Terrell clamps used to grasp the anterior and posterior lips of the cervix. A circumscribing incision was made around the cervical portio through the full thickness of the vaginal wall using cutting current electrocautery. The vagina was dissected away from the distal uterosacral and cardinal pedicles with blunt dissection. This exposed the ligaments and allowed shortening of the ligaments by approximately 5-6 cm. Anterior colpotomy was performed with sharp dissection. A Esther retractor was used to displace the bladder and ureters out of harm's way. Posterior colpotomy was performed. A Moss catheter was inserted using sterile technique. Next, the uterosacral ligaments were clamped back towards the retracted vaginal edge, shortening the ligaments by approximately 5-6 cm bilaterally. These were clamped, divided, and ligated with 2-0 Vicryl transfixion suture. Next, the ureters were palpated, and after assuring these were out of harm's way, the cardinal ligaments were clamped, divided, and ligated with 2-0 Vicryl transfixion suture. Sequential bites were then taken along the broad ligament, clamping, dividing, and ligating with 2-0 Vicryl transfixion suture. At the level of the utero-ovarian ligaments, these were separately isolated, clamped, divided, and ligated with a free tie of 2-0 Vicryl followed by a suture ligature of 2-0 Vicryl in a transfixion fashion. The ovarian pedicles were inspected, and after assuring these were hemostatic and that the tubes and ovaries were normal,these were released. All pedicles were inspected for hemostasis, and after assuring good hemostasis, the angles of the vagina were reattached to the distal uterosacral and cardinal pedicles with 0 Vicryl suture. These sutures were held without tying until the deep uterosacral sutures could be placed. Next, a Kerlix roll was placed in the peritoneal cavity to pack the bowel out of the pelvis. The uterosacral ligament suspension sutures were placed first through the anterior vaginal wall through full thickness of the wall, using 0 PDS suture. These were then incorporated into the more proximal portion of the uterosacral ligament back towards it sacral origins and then back through the posteriorperitoneum and posterior vaginal wall. The placement of these sutures was facilitated by placing a large Esther retractor and holding the packing in the anterior vaginal wall and bladder and ureters out of harm's way. At the same time the posterior peritoneum and rectum was retracted away with a Breisky retractor. The sutures were placed on the deep portion of the uterosacral ligament approximately 5 cm from their distal cut pedicle. They were then brought through the posterior peritoneum and vaginal wall. This was performed bilaterally. The packing was removed, and all sutures were tied across the cuff with good elevation of the apex of the vagina. Cystourethroscopy was then performed with a 70-degree cystoscope after administration of indigo carmine. Free spill was seen from both ureteral orifices, and the bladder mucosa appeared normal. The bladder was again drained with a Moss catheter. The vaginal cuff was inspected. There were a few small defects, reapproximated with 0 Vicryl sutures in interrupted fashion. After the suspension at theapex, the anterior vaginal wall was well supported. Next, the sling was performed. The area overlying the obturator foramen was mapped out bilaterally by first palpating the adductor longus and gracilis muscle tendon insertions. The area was infiltrated with 0.25% bupivacaine solution. Stab wound incisions were made bilaterally. The suburethral vaginal wall was infiltrated with dilute vasopressin solution. A vertical incision was made through the full thickness of the vaginal wall in the suburethral area and then dissection performed bilaterallyout into the periurethral space to the level of the ipsilateral inferior ramus of the pubic bone. Monarc needles were then used to carrillo the obturator foramen bilaterally. The needles were retrievedthrough the vaginal incision. A Monarc sling was retrieved bilaterally by attaching it to the obturator needles. Next, cystourethroscopy was repeated with reassuring findings noted and no evidence ofinjury to bladder or urethra. The bladder was again drained with a Moss catheter. A # 9Hegar dilator was placed under the sling and next to the urethra as a spacer, while tension was applied to both arms. Next, the protective coating was removed bilaterally. Excess mesh was trimmed bilaterally and the Hegar dilator was removed, yielding an excellent midurethral placement without tension. A running 2-0 Vicryl suture was used to reapproximate the full thickness of the vaginal wall over the mesh in the midline. The skin overlying the obturator foramen bilaterally was reapproximated with Dermabond fibrin glue. A posterior colpoperineorrhaphy was performed by mapping out a region to be excised along the posterior vaginal wall. This was mapped out with marking clamps at the hymenal remnants distally, and then infiltration with dilute vasopressin solution was performed on the posterior vaginal wall. A ruy- shaped wedge of posterior vaginal wall was excised including a small amount of perineal body. This was performed by full-thickness dissection, entering into the rectovaginal septum, and once this portion was excised deep sutures were placed with interrupted 2-0 PDS suture, building up the suturesmore distally and building up a shelf of tissue between the rectum and the vagina. Running 2-0 Vicryl suture was then used to reapproximate the full-thickness vaginal wall [id number]. This was continued out to the perineal body. Care was taken to avoid any excessive narrowing of the vaginal introitus. Sponge and needle counts were correct at the end of the procedure. * Discharge Summary - Seferino Bull MD - 03/28/2011 4:10 PM EDT Inpatient G[facility]ER - Discharge Summary Patient Name: Shobha Díaz Patient Age: 51 y.o. Birthdate: 1960 Admit date: 03/28/2011 Discharge date and time: No discharge date for patient encounter. Attending Physician: Delmer Tellez MD Discharge Diagnoses (Hospital Problems) and Secondary Diagnoses (Chronic Problems): Primary Diagnosis: Pelvic organ prolapse Secondary Diagnosis: Bipolar, learning disability, hyperlipidemia, obesity Operations/Major Procedures: 1 . Total Vaginal Hysterectomy (with preservation of ovaries) 2. Uterosacral ligament suspension of vagina 3. Posterior colporrhaphy. 4. Tension-free mid-urethral sling (Monarc) History of Presentation: Ms. Díaz is a .50 y.o. woman with uterovaginal prolapse, incomplete, urinary incontinence, mixed by symptoms, anal incontinence, primarily flatal, likely related to gas pocketing and stool pocketingin distal rectum with rectocele, pelvic floor weakness. Surgical options were discussed and recommendation for hysterectomy with prolapse repair was made. Algaaciq ligament versus mesh repairs were discussed with Dr Tellez, and the pros/ cons of each. She agreed to vaginal hysterectomy, high uterosacral ligament suspension, anterior / posterior colporrhaphy. We discussed this may have a higher failure rate than VH combine with LS mesh sacral colpopexy but that the risks are lower as well. Dr Tellez recommended a sling with surgery to treat her stress urinary incontinence. Hospital Course: Shobha was admitted on 03/28 and underwent the above procedure. Her surgery was uncomplicated and she tolerated the procedure well. EBL was 150ml. Her pain was well controlled post-operatively with IV toradol and then oral diluadid and ibuprofen. She was tolerating a regular diet on POD#1. She ambulated without difficulty. Her moss was discontinued on POD#1 and she voided without difficulty. Shehad difficulty ambulating on POD#1 and remained in the hospital for one additional day. She was discharged to home in good condition and in good spirits on POD#2. Important Studies and Lab Data: Ref. Range 03/29/2011 05:08 WBC Latest Range: 4.0-10.0 x10(3)/mcL 8.9 Hemoglobin Latest Range: 11.2-15.7 gm/dL 10.8 (L) Hematocrit Latest Range: 34.0-45.0 % 31.1 (L) Platelets Latest Range: 145-370 x10(3)/mcL 189 Sodium Latest Range: 135-145 mmol/L 126 (L) Potassium Latest Range: 3.5-5.0 mmol/L 3.8 Chloride Latest Range: 98-107 mmol/L 89 (L) CO2 Latest Range: 22-31 mmol/L 23 Anion Gap Latest Range: 5-15 mmol/L 11 BUN Latest Range: 8-18 mg/dL 6 (L) Creatinine Latest Range: 0.70-1.20 mg/dL 0.55 (L) Estimated GFR Latest Range: >=60 >60 Pending Studies and Lab Data: Pathology Discharge Conditions/Prognosis: Good Discharge to: Home Discharge Medications: Current Discharge Medication List New Meds Details docusate sodium (COLACE) 100 mg Take 100 mg by mouth 2 times daily. Qty: 30 capsule Refills: 2 HYDROmorphone (DILAUDID) 2-4 mg Take 2-4 mg by mouth every 4 hours as needed for Pain. Qty: 30 tablet Refills: 0 Continued medications with revised dosing Details ibuprofen (ADVIL;MOTRIN) 600 mg Take 600 mg by mouth every 6 hours. Qty: 90 tablet Refills: 1 Continued medications, unchanged Details simvastatin (ZOCOR) 20 mg Take 20 mg by mouth nightly. Qty: Refills: sertraline (ZOLOFT) 200 mg Take 200 mg by mouth daily. Qty: Refills: traZODone (DESYREL) 50 mg Take 50 mg by mouth nightly. Qty: Refills: QUEtiapine (SEROQUEL XR) 200 mg Take 200 mg by mouth nightly. Qty: Refills: pantoprazole (PROTONIX) 40 mg Take 40 mg by mouth daily. Qty: Refills: divalproex (DEPAKOTE) 1,000 mg Take 1,000 mg by mouth every evening. Qty: Refills: estrogen (conjugated)-medroxyprogesterone (PREMPRO) 1 tablet Take 1 tablet by mouth daily. Qty: Refills: methylphenidate (METADATE ER) 20 mg Take 20 mg by mouth every morning. Qty: Refills: Cholecalciferol (Vitamin D3) 1 tablet Take 1 tablet by mouth daily. Qty: Refills: Updated Allergies/ADRs: Allergies Allergen Reactions ??? Oxycontin (Oxycodone) Itching Instructions Given to Patient at Discharge: Provider Instructions PATIENT DISCHARGE INSTRUCTIONS [facility] phone number: [phone] Call your doctor if you develop: --A fever over 101 degrees --Severe pain --Heavy vaginal bleeding --Increasing pain, redness, or discharge at your incisions Activity level: No heavy lifting, pushing or pulling for 6 weeks. No sexual intercourse, no tampons, nothing in the vagina for 6 weeks. Diet: You may resume your regular diet. Be sure you drink plenty of fluids. Please use colace 100-200mg twice daily for the entire time that you are taking pain medication to keep your bowel movements soft and regular. If you are constipated or have not had a bowel movement in 3 days, please use milk of magnesia (or miralax) as directed over the counter. Driving: Do not drive until you are off of all narcotic medications and you are not feeling pain Shower/Bath: You may resume your normal routine. Wound Care: Your skin incisions are closed with skin glue, which will wash off after several days. Special Physician Instructions: Pain medications include ibuprofen. Please use motrin 600 mg every 6 hours with food around the clock for the next several days and then after that use it only as needed. General Instructions None Future Appointments and Orders Future Appointments: Provider: Department: Dept Phone: Center: 05/10/2011 3:00 PM MD Aich[facility] 05/10/2011 3:00 PM [employer] [facility] Future Orders Please Complete By Expires Referral to Home Health [[id number] CPT(R)] Process Instructions: Scheduling Instructions: Comments: DOCUMENTATION FOR VNA SERVICES (INCLUDING THOSE PATIENTS WITH MEDICARE COVERAGE REQUIRING HOME VNA SERVICES AND/OR HOSPICE SERVICES) PATIENT'S LOCATION: Shobha Díaz [address] [place], [place] [address] (home) Belt Dresser's Name: Patient In discussion with the attending physician, it is certified that this patient is under their care and that they, or a nurse practitioner, clinical nurse specialist or physician's behavioral modification assistant who is working directly with them, had a face to face encounter that meets the physician face to face encounter requirements with this patient on 03/29/2011 The encounter with the patient was in whole, or in part, for the following medical condition, whichis the primary reason for home health care services:hysterectomyIn discussion with the provider, itis certified that, based on their findings, the following services are medically necessary for homehealth services. HYSTERECTOMY, VAGINAL, <250 GRAMS COLPOPEXY, VAGINAL, INTRAPERITONEAL APPROACH URETHRAL SUSPENSION, SLING\FASCIA OR SYNTHETIC COLPORRHAPHY, POST RECTOCELE WITH OR W\O PERINEORRHAPHY To provide the following care/treatments with the clinical findings supporting the need for services as follows: HOME CARE ORDERS: RN ORDERS:Assess Pain, , vital signs, cardiopulmonary status, nutrition, hydration, elimination, meds effectiveness and management; reinforce education re health issues, activity, coping. . HOME HEALTH CARE AGENCY: [facility] PHONE: [phone] FAX: [phone] Start of care: Day after discharge (03-31-11) Please note that any additional orders needs or changes will need to be obtained from this patient's PCP: GINA RODGERS MD [address] / [place] [address] All A agencies which cover the area of patient's residence have been reviewed, either verbally bhanu writing, and patient/family have chosen the home health care agency noted Questions: Responses: Agency name and contact information [facility] Patient location post discharge [email or web address] What services are requested Registered Nurse Start date 03/31/2011 Responsible MD post discharge contact info PCP Discharge patient [ADT8 Custom] Process Instructions: Scheduling Instructions: Comments: Discharge to home Questions: Responses: Call to speak to WALKING DRAGLINE OPERATOR resident station installation supervisor for: [[id number] Custom] Process Instructions: Scheduling Instructions: Comments: - For temperature greater than 38.3 degrees C or fever/chills - Nausea or vomiting preventing PO intake - Vaginal bleeding requiring more than 1 sanitary pad every hour - Pain not controlled by prescription medications - Inability to void Questions: Responses: Provider Contact Information: GINA RODGERS MD [phone] Discharge References/Attachments: Discharge References/Attachments None Signed: SEFERINO BULL MD 03/30/2011 * OR Attestation - Delmer Tellez MD - 03/28/2011 3:49 PM EDT Attestation: Case Date: 03/28/2011 I was present and I participated during the entire procedure (does not need to include opening and closing). DELMER TELLEZ MD 03/28/2011 * Brief Op Note - Delmer Tellez MD - 03/28/2011 3:48 PM EDT Brief Operative Note Patient Name: Shobha Díaz : [id number] MR#: [id number] Case Date: 03/28/2011 Surgeon: Surgeon(s) and Role: * DELMER TELLEZ MD - Primary * RUBÉN GAY MD - Resident-Shank Skinner Preoperative diagnosis: Uterovaginal prolapse, incomplete Postoperative diagnosis: uterovaginal prolapse Procedure(s): HYSTERECTOMY, VAGINAL, <250 GRAMS COLPOPEXY, VAGINAL, INTRAPERITONEAL APPROACH URETHRAL SUSPENSION, SLING\FASCIA OR SYNTHETIC COLPORRHAPHY, POST RECTOCELE WITH OR W\O PERINEORRHAPHY Anesthesia: General Estimated Blood Loss: 150 mL Fluids In: 1300 mL crystalloid Fluids Out: 725 mL urine Drains: Moss to gravity bag drainage. Disposition: awakened from anesthesia, extubated and taken to the recovery room in a stable condition, having suffered no apparent untoward event. Condition: doing well without problems (Please see the Surgical Encounter Summary for any Implant and Specimen details pertinent to this patient.) * Miscellaneous - Provider, Scanning - 03/28/2011 10:44 AM EDT documented in this encounter Plan of Treatment Not on file documented as of this encounter Procedures Procedure Name Priority Date/Time Associated Diagnosis Comments URETHRAL SUSPENSION,SLING\FASCIA OR SYNTHETIC Routine 03/31/2011 3:19 PM EDT Uterovaginal prolapse, incomplete Fecal incontinence Urinary incontinence COLPOPEXY,VAGINAL\INTRA PERITONEAL Routine 03/31/2011 3:19 PM EDT Uterovaginal prolapse, incomplete Fecal incontinence Urinary incontinence COLPORRHAPHY,POST RECTOCELE W\OR W\O PERINEORRHAPHY Routine 03/31/2011 3:19 PM EDT Uterovaginal prolapse, incomplete Fecal incontinence Urinary incontinence IMPLANTABLE DEVICES SCAN 03/31/2011 11:41 AM EDT DIFFERENTIAL, AUTOMATED Routine 03/30/20 11 3:30 AM EDT CREATININE Routine 03/30/2011 3:30 AM EDT CBC (WITH DIFF) Routine 03/30/2011 3:30 AM EDT BUN Routine 03/30/2011 3:30 AM EDT ELECTROLYTES PANEL Routine 03/30/2011 3: 30 AM EDT POCT GLUCOSE Routine 03/29/2011 4:30 PM EDT DIFFERENTIAL, AUTOMATED Routine 03/29/20 11 2:24 PM EDT CBC (WITH DIFF) Routine 03/29/2011 2:24 PM EDT ELECTROLYTES PANEL Routine 03/29/2011 2: 24 PM EDT DIFFERENTIAL, AUTOMATED Routine 03/29/20 11 5:08 AM EDT CREATININE Routine 03/29/2011 5:08 AM EDT CBC (WITH DIFF) Routine 03/29/2011 5:08 AM EDT BUN Routine 03/29/2011 5:08 AM EDT ELECTROLYTES PANEL Routine 03/29/2011 5: 08 AM EDT SURGICAL PATHOLOGY REPORT Routine 03/28/2011 2:08 PM EDT SPECIMEN TO PATHOLOGY Routine 03/28/2011 1:58 PM EDT COLPORRHAPHY, POST RECTOCELE WITH OR W\O PERINEORRHAPHY (WRVU 10.08) 03/28/2011 12:44 PM EDT Uterovaginal prolapse, incomplete Fecal incontinence Urinary incontinence URETHRAL SUSPENSION, SLING\FASCIA OR SYNTHETIC (WRVU 12.13) 03/28/2011 12:44 PM EDT Uterovaginal prolapse, incomplete Fecal incontinence Urinary incontinence COLPOPEXY, VAGINAL, INTRAPERITONEAL APPROACH (WRVU 11.66) 03/28/2011 12:44 PM EDT Uterovaginal prolapse, incomplete Fecal incontinence Urinary incontinence HYSTERECTOMY, VAGINAL, <250 GRAMS (WRVU 14.15) 03/28/2011 12:44 PM EDT Uterovaginal prolapse, incomplete Fecal incontinence Urinary incontinence DUPLEX FOR DVT, LEG, UNILAT Routine 03/28/2011 11:06 AM EDT documented in this encounter Results * SCAN DOC: IMPLANTABLE DEVICES (03/31/2011 11:41 AM EDT) Narrative 03/31/2011 11:41 AM EDT Procedure Note Provider, Scanning - 03/31/2011 11:41 AM EDT Scanning Provider MEDIA MGR SCAN EXT O RDR/RSLT * A-DIFF (03/30/2011 3:30 AM EDT) Neutrophil % 59.5 34.0 - 71.0 % CERNER MILLENNIUM Neutrophil Absolute 4.95 1.50 - 6.30 x10(3)/mcL CERNER MILLENNIUM Lymph % 28.2 19.0 - 53.0 % CERNER MILLENNIUM Lymphocytes Abs 2.4 1.0 - 3.6 x10(3)/mcL CERNER MILLENNIUM Monocyte % 9.1 4.0 - 13.0 % CERNER MILLENNIUM Monocyte Abs 0.8 0.2 - 1.0 x10(3)/mcL CERNER MILLENNIUM Eos % 2.8 0.0 - 7.0 % CERNER MILLENNIUM Eosinophils Abs 0.2 0.0 - 0.5 x10(3)/mcL CERNER MILLENNIUM Basophil % 0.2 0.0 - 2.0 % CERNER MILLENNIUM Baso Absolute 0.0 0.0 - 0.2 x10(3)/mcL CERNER MILLENNIUM Immature Gran % 0.20 0.00 - 0.66 % CERNER MILLENNIUM Comment: Immature granulocytes(IG's)percentage and absolute count will include metamyelocytes, myelocytes, and promyelocytes. Blood smears from CBCs yielding IG's will be scanned manually for concordance. If this scan disagrees with the automated IG or if promyelocytes are noted, a manual differential will be performed. Immature Gran Absolute 0.02 0.00 - 0.05 x10(3)/mcL CERNER MILLENNIUM Blood specimen (specimen) 03/30/2011 3:30 AM EDT 03/30/2011 3:52 AM EDT Delmer Tellez MD HEMATOLOGY ORDERABLE S [facility] * (ABNORMAL) CBC (with Diff) (03/30/2011 3:30 AM EDT) White Blood Cell 8.3 4.0 - 10.0 x10(3)/mc L CERNER MILLENNIUM Red Blood Cell 4.05 3.93 - 5.22 x10(6)/mc L CERNER MILLENNIUM Hemoglobin 11.2 11.2 - 15.7 gm/dL CERNER MILLENNIUM Hematocrit 32.8(L) 34.0 - 45.0 % CERNER MILLENNIUM Mean Cell Volume 81.0 79.0 - 94.0 fL CERNER MILLENNIUM Mean Cell Hemoglobin 27.7 26.6 - 32.2 pg CERNER MILLENNIUM Mean Cell Hemoglobin Concentration 34.1 32.0 - 36.5 gm/dL CERNER MILLENNIUM Platelet 212 145 - 370 x10(3)/mc L CERNER MILLENNIUM RDW Standard Deviation 39.7 35.0 - 46.0 fL CERNER MILLENNIUM RDW coefficient of variation 13.5 10.9 - 14.4 % CERNER MILLENNIUM Mean Platelet Volume 10.0 9.0 - 12.0 fL CERNER MILLENNIUM Blood specimen (specimen) 03/30/2011 3:30 AM EDT 03/30/2011 3:52 AM EDT Delmer Tellez MD HEMATOLOGY ORDERABLE S CERNER MILLENNIUM * (ABNORMAL) Creatinine, serum (03/30/2011 3:30 AM EDT) Creatinine 0.58(L) 0.70 - 1.20 mg/dL CERNER MILLENNIUM Est [...] disease. References: http://nkdep.nih.gov/resources/NKDEP_Suggestn4Labs_0606_508.pdf http://www.kidney.org/professionals/kls/pdf/faq_gfr.pdf Blood specimen (specimen) 03/30/2011 3:30 AM EDT 03/30/2011 3:52 AM EDT Delmer Tellez MD CHEMISTRY ORDERABLES Performing Organization Address [facility] de Phone Number [facility] * BUN (03/30/2011 3:30 AM EDT) Blood Urea Nitrogen 11 8 - 18 mg/dL [facility] MILLENNIUM Comment:result rechecked-AFP Blood specimen (specimen) 03/30/2011 3:30 AM EDT 03/30/2011 3:52 AM EDT Delmer Tellez MD CHEMISTRY ORDERABLES Performing Organization Address [facility] Phone Number [facility] MILLENNIUM * (ABNORMAL) Electrolytes panel (03/30/2011 3:30 AM EDT) Pathologist [facility] Sodium 124(L) 135 - 145 mmol/L [facility] Potassium 4.5 3.5 - 5.0 mmol/L CERNER MILLENNIUM Comment: Please note: ??Patients with WBC >100,000 may have falsely elevated Potassium levels. ??For accurate Potassium quantification in these patients send serum separator tube (gold top) for subsequent determinations. ??Contact the Clinical Chemistry Laboratory if there are any questions. Chloride 88(L) 98 - 107 mmol/L CERNER MILLENNIUM Carbon Dioxide 25 22 - 31 mmol/L CERNER MILLENNIUM Anion Gap 11 5 - 15 mmol/L CERNER MILLENNIUM Blood specimen (specimen) 03/30/2011 3:30 AM EDT 03/30/2011 3:52 AM EDT Delmer Tellez MD CHEMISTRY ORDERABLES Performing Organization Address [facility] Co de Phone Number [facility] * POCT GLUCOSE LAB USE ONLY (03/29/2011 4:30 PM EDT) Glucose, POC 97 60 - 199 mg/dL CERNER MILLENNIUM Comment: Supplemental ranges: <110 mg/dL before meals <200 mg/dL all other times of the day Blood specimen (specimen) 03/29/2011 4:30 PM EDT 03/29/2011 4:30 PM EDT Delmer Tellez MD POINT OF CARE TEST O RDERABLES [facility] * A-DIFF (03/29/2011 2:24 PM EDT) Neutrophil % 59.6 34.0 - 71.0 % CERNER MILLENNIUM Neutrophil Absolute 4.52 1.50 - 6.30 x10(3)/mcL CERNER MILLENNIUM Lymph % 29.1 19.0 - 53.0 % CERNER MILLENNIUM Lymphocytes Abs 2.2 1.0 - 3.6 x10(3)/mcL CERNER MILLENNIUM Monocyte % 9.5 4.0 - 13.0 % CERNER MILLENNIUM Monocyte Abs 0.7 0.2 - 1.0 x10(3)/mcL CERNER MILLENNIUM Eos % 1.3 0.0 - 7.0 % CERNER MILLENNIUM Eosinophils Abs 0.1 0.0 - 0.5 x10(3)/mcL CERNER MILLENNIUM Basophil % 0.1 0.0 - 2.0 % CERNER MILLENNIUM Baso Absolute 0.0 0.0 - 0.2 x10(3)/mcL CERNER MILLENNIUM Immature Gran % 0.40 0.00 - 0.66 % CERNER MILLENNIUM Comment: Immature granulocytes(IG's)percentage and absolute count will include metamyelocytes, myelocytes, and promyelocytes. Blood smears from CBCs yielding IG's will be scanned manually for concordance. If this scan disagrees with the automated IG or if promyelocytes are noted, a manual differential will be performed. Immature Gran Absolute 0.03 0.00 - 0.05 x10(3)/mcL CERNER MILLENNIUM Blood specimen (specimen) 03/29/2011 2:24 PM EDT 03/29/2011 2:32 PM EDT Delmer Tellez MD HEMATOLOGY ORDERABLE S [facility]ERFER[facility] MILLENNIUM * (ABNORMAL) CBC (with Diff) (03/29/2011 2:24 PM EDT) White Blood Cell 7.6 4.0 - 10.0 x10(3)/mc L CERNER MILLENNIUM Red Blood Cell 3.65(L) 3.93 - 5.22 x10(6)/mc L CERNER MILLENNIUM Hemoglobin 9.9(L) 11.2 - 15.7 gm/dL CERNER MILLENNIUM Hematocrit 29.6(L) 34.0 - 45.0 % CERNER MILLENNIUM Mean Cell Volume 81.1 79.0 - 94.0 fL CERNER MILLENNIUM Mean Cell Hemoglobin 27.1 26.6 - 32.2 pg CERNER MILLENNIUM Mean Cell Hemoglobin Concentration 33.4 32.0 - 36.5 gm/dL CERNER MILLENNIUM Platelet 180 145 - 370 x10(3)/mc L CERNER MILLENNIUM RDW Standard Deviation 40.1 35.0 - 46.0 fL CERNER MILLENNIUM RDW coefficient of variation 13.3 10.9 - 14.4 % CERNER MILLENNIUM Mean Platelet Volume 9.3 9.0 - 12.0 fL CERNER MILLENNIUM Blood specimen (specimen) 03/29/2011 2:24 PM EDT 03/29/2011 2:32 PM EDT Delmer Tellez MD HEMATOLOGY ORDERABLE S [facility] * (ABNORMAL) Electrolytes panel (03/29/2011 2:24 PM EDT) Sodium 124(L) 135 - 145 mmol/L CERNER MILLENNIUM Potassium 3.9 3.5 - 5.0 mmol/L CERNER MILLENNIUM Comment: Please note: ??Patients with WBC >100,000 may have falsely elevated Potassium levels. ??For accurate Potassium quantification in these patients send serum separator tube (gold top) for subsequent determinations. ??Contact the Clinical Chemistry Laboratory if there are any questions. Chloride 87(L) 98 - 107 mmol/L CERNER MILLENNIUM Carbon Dioxide 27 22 - 31 mmol/L CERNER MILLENNIUM Anion Gap 10 5 - 15 mmol/L CERNER MILLENNIUM Blood specimen (specimen) 03/29/2011 2:24 PM EDT 03/29/2011 2:32 PM EDT Delmer Tellez MD CHEMISTRY ORDERABLES CERNER MILLENNIUM * (ABNORMAL) A-DIFF (03/29/2011 5:08 AM EDT) Neutrophil % 69.9 34.0 - 71.0 % CERNER MILLENNIUM Neutrophil Absolute 6.20 1.50 - 6.30 x10(3)/mc L CERNER MILLENNIUM Lymph % 18.3(L) 19.0 - 53.0 % CERNER MILLENNIUM Lymphocytes Abs 1.6 1.0 - 3.6 x10(3)/mc L CERNER MILLENNIUM Monocyte % 11.6 4.0 - 13.0 % CERNER MILLENNIUM Monocyte Abs 1.0 0.2 - 1.0 x10(3)/mc L CERNER MILLENNIUM Eos % 0.1 0.0 - 7.0 % CERNER MILLENNIUM Eosinophils Abs 0.0 0.0 - 0.5 x10(3)/mc L CERNER MILLENNIUM Basophil % 0.1 0.0 - 2.0 % CERNER MILLENNIUM Baso Absolute 0.0 0.0 - 0.2 x10(3)/mc L CERNER MILLENNIUM Immature Gran % 0.00 0.00 - 0.66 % CERNER MILLENNIUM Comment: Immature granulocytes(IG's)percentage and absolute count will include metamyelocytes, myelocytes, and promyelocytes. Blood smears from CBCs yielding IG's will be scanned manually for concordance. If this scan disagrees with the automated IG or if promyelocytes are noted, a manual differential will be performed. Immature Gran Absolute 0.00 0.00 - 0.05 x10(3)/mc L CERNER MILLENNIUM Blood specimen (specimen) 03/29/2011 5:08 AM EDT 03/29/2011 5:15 AM EDT Delmer Tellez MD HEMATOLOGY ORDERABLE S CERFERNANDO MILLENNIUM * (ABNORMAL) CBC (with Diff) (03/29/2011 5:08 AM EDT) White Blood Cell 8.9 4.0 - 10.0 x10(3)/mc L CERNER MILLENNIUM Red Blood Cell 3.89(L) 3.93 - 5.22 x10(6)/mc L CERNER MILLENNIUM Hemoglobin 10.8(L) 11.2 - 15.7 gm/dL CERNER MILLENNIUM Hematocrit 31.1(L) 34.0 - 45.0 % CERNER MILLENNIUM Mean Cell Volume 79.9 79.0 - 94.0 fL CERNER MILLENNIUM Mean Cell Hemoglobin 27.8 26.6 - 32.2 pg CERNER MILLENNIUM Mean Cell Hemoglobin Concentration 34.7 32.0 - 36.5 gm/dL CERNER MILLENNIUM Platelet 189 145 - 370 x10(3)/mc L CERNER MILLENNIUM RDW Standard Deviation 38.2 35.0 - 46.0 fL CERNER MILLENNIUM RDW coefficient of variation 13.2 10.9 - 14.4 % CERNER MILLENNIUM Mean Platelet Volume 9.8 9.0 - 12.0 fL CERNER MILLENNIUM Blood specimen (specimen) 03/29/2011 5:08 AM EDT 03/29/2011 5:15 AM EDT Delmer Tellez MD HEMATOLOGY ORDERABLE S CERFERNANDO MILLENNIUM * (ABNORMAL) Creatinine, serum (03/29/2011 5:08 AM EDT) Creatinine 0.55(L) 0.70 - 1.20 mg/dL CERNER MILLENNIUM Est [...] disease. References: http://nkdep.nih.gov/resources/NKDEP_Suggestn4Labs_0606_508.pdf http://www.kidney.org/professionals/kls/pdf/faq_gfr.pdf Blood specimen (specimen) 03/29/2011 5:08 AM EDT 03/29/2011 5:15 AM EDT Delmer Tellez MD CHEMISTRY ORDERABLES Performing Organization Address City/[facility] Co de Phone Number MIGUELITO HivelyLEE ANN * (ABNORMAL) BUN (03/29/2011 5:08 AM EDT) Blood Urea Nitrogen 6(L) 8 - 18 mg/dL MIGUELITO ZAMAN Blood specimen (specimen) 03/29/2011 5:08 AM EDT 03/29/2011 5:15 AM EDT Delmer Tellez MD CHEMISTRY ORDERABLES MIGUELITO HivelyMONICAS4 [employer] * (ABNORMAL) Electrolytes panel (03/29/2011 5:08 AM EDT) Sodium 126(L) 135 - 145 mmol/L CERNER MILLENNIUM Potassium 3.8 3.5 - 5.0 mmol/L CERNER MILLENNIUM Comment: Please note: ??Patients with WBC >100,000 may have falsely elevated Potassium levels. ??For accurate Potassium quantification in these patients send serum separator tube (gold top) for subsequent determinations. ??Contact the Clinical Chemistry Laboratory if there are any questions. Chloride 89(L) 98 - 107 mmol/L CERNER MILLENNIUM Carbon Dioxide 23 22 - 31 mmol/L CERNER MILLENNIUM Anion Gap 11 5 - 15 mmol/L CERNER MILLENNIUM Blood specimen (specimen) 03/29/2011 5:08 AM EDT 03/29/2011 5:15 AM EDT Delmer Tellez MD CHEMISTRY ORDERABLES [facility] * Surgical Pathology Report (03/28/2011 2:08 PM EDT) Surgical Pathology Report [id number] ? Location: [facility]; [address] The signing pathologist has (i) examined the relevant preparation(s) for the specimen(s) and (ii) rendered or confirmed the diagnosis(es). . ?Pathology Surgical Pathology Final Report Clinical Information Specimen Submitted: A - Uterus and cervix Clinical History/Diagnosis : 51 yr-old WF w/uterovaginal prolapse, stress incontinence Gross Description Labeled/Fixative: ?Uterus and cervix, fresh. Qty/Size/Weight: ? Single, 9.0 x 5.5 x 4.0 cm, 88 g. Tissue Description: ?Uterine corpus and cervix with no attached ? uterine adnexa. ?? Uterus and Cervix: ?Endometrium: ? Briones, glistening and smooth with scattered ? purple-smith, cystic foci. ? Thickness: ?Up to 0.8 cm. ? Lesions: ?Scattered purple-smith, hemorrhagic, cystic ? foci are present, averaging 0.1 cm. ?Myometrium: ?Alto, smooth to finely reticulated. ? Thickness: ?Up to 2.0 cm. ? Lesions: ?Well-circumscri bed, yellow-white, ? intramural fibroid nodules present, ? varying from 0.2 to 1.6 cm without evidence ? of hemorrhage or necrosis. ?Uterine serosa: ?Red posteriorly, focally hemorrhagic. ?Cervix: ?The 3.3 x 3.3-ct-om-diamete r cervix is a ? pink, congested and smooth mucosa ? surrounding a 0.3-pc-dn-diamete r patulous ? os. ??In the cervical canal is a briones, ? congested, focally hyperemic lining with ? scattered, gelatinous cysts averaging ? 0.2 cm. Sections/Processi ng: ? 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 ??(R6) ??vms/SHB Microscopic Description Slides reviewed, microscopic description not recorded. Diagnosis Uterus and cervix, resection: ?? 1 - Nabothian cysts and chronic inflammation, cervix. ?? 2 - Uterine leiomyoma. ?? 3 - Benign inactive/atrophic endometrium, negative for hyperplasia, ? malignancy, and endometritis. ?? 4 - Adenomyosis. . Diagnosis CR-0 03/29/11 ARS 03/29/11 Verified by: ? Oliver LUNDY, Davy Zamora ?Pathologist ?(Electronic Signature) The attending pathologist whose signature appears on this report has reviewed all diagnostic slides and has edited the gross and/or microscopic portion of the report in rendering the final pathologic diagnosis. MIGUELITO ZAMAN 03/28/2011 2:08 PM EDT Delmer Tellez MD PATHOLOGY/CYTOLOGY O RDERABLES MIGUELITO ZAMAN * Specimen to Pathology (surgical or derm) (03/28/2011 1:58 PM EDT) AP Specimen 03/28/2011 1:58 PM EDT 03/28/2011 1:58 PM EDT Narrative MIGUELITO ZAMAN - 03/28/2011 1:58 PM EDT Specimen requisition ordered. ??Separate Pathology report to follow Delmer Tellez MD PATHOLOGY/CYTOLOGY O RDERABLES MIGUELITO ZAMAN * Duplex for DVT, Leg, Unilat (03/28/2011 11:06 AM EDT) VB Text Report Department: Vascular Surgery Lab Patient: [id number] (SHOBHA DÍAZ) CPT Code: 83971 ICD-9: 729.5 Referring Physician: DELMER TELLEZ Indication: ??Right lower extremity pain ICD9 Diagnosis Code: 729.5 RIGHT: Patent common femoral vein and popliteal vein with spontaneous, respirophasic Doppler waveforms that respond normally to augmentation maneuvers. The common femoral vein, saphenofemoral junction, femoral vein through the thigh and the popliteal vein are fully compressible. Patent posterior tibial and peroneal veins with no evidence of thrombus. Patent greater saphenous vein (GSV) that is extremely small in segments and not well visualized, no thrombus identified. Interpretation: No evidence of RIGHT lower extremity deep venous thrombosis. No thrombus identified in the GSV, although vein is extremely small in segments and not well visualized. Signed by MAKAYLA ARRIETA on 2011-03-29 11:42:43 PM VASCUBASE VB Text Report End of Report VAS[facility] 03/28/2011 11:0 6 AM EDT Delmer Tellez MD VASCULAR ORDERABLES [facility]ASCU[facility] documented in this encounter Visit Diagnoses Diagnosis Uterovaginal prolapse, incomplete Fecal incontinence Full incontinence of feces Urinary incontinence Unspecified urinary incontinence Urinary, incontinence, stress female Female stress incontinence documented in this encounter Administered Medications Inactive Administered Medications - up to 3 most recent administrations Medication Order MAR Action Action Date Dose Rate Site diphenhydrAMINE (BENADRYL) tablet 25 mg 25 mg, Oral, ONCE, 1 dose, On Mon03/29/11 at 2100, Routine Given 03/29/2011 11:57 PM EDT 25 mg divalproex (DEPAKOTE) EC tablet 1,000 mg 1,000 mg, Oral, EVERY EVENING, First dose on Mon03/28/11 at 2000, Until Discontinued, Routine Given 03/29/2011 5:14 PM EDT 1,000 mg Given 03/28/2011 8:00 PM EDT 1,000 mg docusate sodium (COLACE) capsule 100 mg 100 mg, Oral, 2 TIMES DAILY, First dose on Mon03/28/11 at 2100, Until Discontinued, Routine Given 03/30/2011 8:25 AM EDT 100 mg Given 03/29/2011 8:24 PM EDT 100 mg Given 03/29/2011 9:08 AM EDT 100 mg esomeprazole (NEXIUM) capsule 40 mg 40 mg, Oral, DAILY, First dose on Mon03/29/11 at 0900, Until Discontinued, Routine Given 03/30/2011 8:25 AM EDT 40 mg Given 03/29/2011 9:08 AM EDT 40 mg HYDROmorphone (DILAUDID) tablet 2-4 mg 2-4 mg, Oral, EVERY 4 HOURS PRN, Starting on Mon03/28/11 at 2202, Until Mon03/30/11 at 1322, Pain, Routine Given 03/30/2011 7:05 AM EDT 4 mg Given 03/29/2011 6:34 PM EDT 4 mg Given 03/29/2011 1:16 PM EDT 4 mg HYDROmorphone (PF) (DILAUDID) 2 mg/mL injection 0.2 mg 0.2 mg, Intravenous, EVERY 2 HOURS PRN, 2 doses, Starting on Mon03/28/11 at 1856, Until Mon03/30/11 at 1322, Pain, severe pain, Routine Given 03/28/2011 8:22 PM EDT 0.2 mg HYDROmorphone (PF) (DILAUDID) 2 mg/mL injection 0.2-0.4 mg 0.2-0.4 mg, Intravenous, EVERY 5 MIN PRN, Starting on Mon03/28/11 at 1521, Until Mon03/28/11 at 1821, Pain, For moderate pain give: 0.2 mg every 5 minute prn For severe pain give: 0.4 mg every 5 minutes prn Maximum dose: 4 mg per hour Hold for respiratory rate less than 10 per minute., PACU Recovery, Routine Given 03/28/2011 4:44 PM EDT 0.4 mg Given 03/28/2011 4:27 PM EDT 0.4 mg Given 03/28/2011 4:15 PM EDT 0.4 mg ibuprofen (ADVIL;MOTRIN) tablet 600 mg 600 mg, Oral, EVERY 6 HOURS SCHEDULED, First dose on Mon03/29/11 at 1400, Until Discontinued, - Begin after ketorolac discontinued. , Routine Given 03/30/2011 7:02 AM EDT 600 mg Given 03/30/2011 12:00 AM EDT 600 mg Given 03/29/2011 6:00 PM EDT 600 mg ketorolac (TORADOL) injection 15 mg 15 mg, Intravenous, EVERY 8 HOURS SCHEDULED, 3 doses, First dose on Mon03/28/11 at 1645, Last dose on Mon03/29/11 at 0600, Routine Given 03/29/2011 6:00 AM EDT 15 mg Given 03/28/2011 10:00 PM EDT 15 mg Given 03/28/2011 4:45 PM EDT 15 mg lactated ringers infusion 1,000 mL 1,000 mL, at 100 mL/hr, Intravenous, CONTINUOUS, Starting on Mon03/28/11 at 1645, Until Mon03/29/11 at 2035 New Bag 03/28/2011 4:45 PM EDT 1,000 mLs 100 mL/hr methylphenidate (METADATE ER) CR tablet 20 mg 20 mg, Oral, EVERY MORNING, First dose on Mon03/29/11 at 0700, Until Discontinued, Routine Given by Other 03/29/2011 7:00 AM EDT 20 mg ondansetron (ZOFRAN) injection 4 mg 4 mg, Intravenous, EVERY 30 MIN PRN, Starting on Mon03/28/11 at 1521, Until Mon03/28/11 at 1821, Nausea, May repeat 4 mg once in 30 minutes. Consider prochlorperazine if ineffective., PACU Recovery, Routine Given 03/28/2011 4:42 PM EDT 4 mg pneumococcal (PNEUMOVAX-23 (PPSV23)) vaccine inejction 0.5 mL 0.5 mL, Intramuscular, PRIOR TO DISCHARGE, 1 dose, Starting on Mon03/29/11 at 0913, Until Mon03/29/11 at 1834, Per Protocol, Hold for fever greater than 38.9C, Routine Given 03/29/2011 6:34 PM EDT 0.5 mLs Left Arm QUEtiapine (SEROQUEL XR) XR tablet 200 mg 200 mg, Oral, NIGHTLY, First dose on Mon03/28/11 at 2100, Until Discontinued, Routine Given 03/29/2011 8:24 PM EDT 200 mg Given 03/28/2011 9:00 PM EDT 200 mg sertraline (ZOLOFT) tablet 200 mg 200 mg, Oral, DAILY, First dose on Mon03/28/11 at 2000, Until Discontinued, Routine Given 03/30/2011 8:2 5 AM EDT 200 mg Given 03/29/2011 9:08 AM EDT 200 mg Given 03/28/2011 8:00 PM EDT 200 mg simvastatin (ZOCOR) tablet 20 mg 20 mg, Oral, NIGHTLY, First dose on Mon03/28/11 at 2100, Until Discontinued Given 03/29/2011 8:24 PM EDT 20 mg Given 03/28/2011 9:00 PM EDT 20 mg sodium chloride 0.9 % flush 5 mL 5 mL, Intravenous, EVERY 12 HOURS, First dose on Mon03/28/11 at 1915, Until Discontinued Given 03/30/2011 7:15 AM EDT 5 mLs Given 03/29/2011 7:01 PM EDT 5 mLs Given 03/29/2011 7:15 AM EDT 5 mLs traZODone (DESYREL) tablet 50 mg 50 mg, Oral, NIGHTLY, First dose on Mon03/28/11 at 2100, Until Discontinued, Routine Given 03/29/2011 8:2 5 PM EDT 50 mg Given 03/28/2011 9:00 PM EDT 50 mg documented in this encounter Active and Recently Administered Medications Times are shown in EDT. Scheduled Medication Order 03/28/2011 03/29/2011 03/30/2011 ceFAZolin (ANCEF) 2g in dextrose 5% 100mL (COMPLETED) 2 g, Intravenous, ONCE, 1 dose, On Mon03/28/11 at 1130, Administer over 30 Minutes, Redose after 4 hours., Day of Surgery (Day of Procedure) 1130 (Due)1304 (Given - Provider: Skinny Sims MD) diphenhydrAMINE (BENADRYL) tablet 25 mg (COMPLETED) 25 mg, Oral, ONCE, 1 dose, On Mon03/29/11 at 2100, Routine 2357 (Given - Provider: Pao Wayne, NATALIYA) divalproex (DEPAKOTE) EC tablet 1,000 mg (CANCELED) 1,000 mg, Oral, EVERY EVENING, First dose on Mon03/28/11 at 2000, Until Discontinued, Routine 2000 (Given - Provider: Sonja Martinez, NATALIYA) 1714 (Given - Provider: Primitivo Patel, NATALIYA) docusate sodium (COLACE) capsule 100 mg 100 mg, Oral, 2 TIMES DAILY, First dose on Mon03/28/11 at 2100, Until Discontinued, Routine 2100 (Given - Provider: Sonja Martinez, NATALIYA) 09 (Given - Provider: Primitivo Patel, NATALIYA)2023 (Given - Provider: Pao Wayne RN) 0825 (Given - Provider: Primitivo Patel RN) esomeprazole (NEXIUM) capsule 40 mg (CANCELED) 40 mg, Oral, DAILY, First dose on Mon03/29/11 at 0900, Until Discontinued, Routine 09 (Given - Provider: Primitivo Patel RN) 08 (Given - Provider: Primitivo Patel RN) ibuprofen (ADVIL;MOTRIN) tablet 600 mg(Linked Group 1) 600 mg, Oral, EVERY 6 HOURS SCHEDULED, First dose on Mon03/29/11 at 1400, Until Discontinued, - Begin after ketorolac discontinued. , Routine 1400 (Given - Provider: Primitivo Patel, NATALIYA)1800 (Given - Provider: Primitivo Patel RN) 0000 (Given - Provider: Pao Wayne RN)0702 (Given - Provider: Pao Wayne RN) ketorolac (TORADOL) injection 15 mg (COMPLETED)(Linked Group 1) 15 mg, Intravenous, EVERY 8 HOURS SCHEDULED, 3 doses, First dose on Mon03/28/11 at 1645, Last dose on Mon03/29/11 at 0600, Routine 1645 (Given - Provider: Maria E Wynne RN)2200 (Given - Provider: Sonja Martinez, NATALIYA) 0600 (Given - Provider: Dennis Wilkerson RN) methylphenidate (METADATE ER) CR tablet 20 mg (CANCELED) 20 mg, Oral, EVERY MORNING, First dose on Mon03/29/11 at 0700, Until Discontinued, Routine 0700 (Given by Other - Provider: Primitivo Patel RN - Comment: NATALIYA Wilkerson) 0700 (Not Given - Provider: Pao Wayne RN - Reason: Patient/family refused) QUEtiapine (SEROQUEL XR) XR tablet 200 mg (CANCELED) 200 mg, Oral, NIGHTLY, First dose on Mon03/28/11 at 2100, Until Discontinued, Routine 2099 (Given - Provider: Sonja Martinez RN) 2023 (Given - Provider: Pao Wayne RN) sertraline (ZOLOFT) tablet 200 mg (CANCELED) 200 mg, Oral, DAILY, First dose on Mon03/28/11 at 2000, Until Discontinued, Routine 1999 (Given - Provider: Sonja Maritnez RN) 09 (Given - Provider: Primitivo Patel RN) 08 (Given - Provider: Primitivo Patel RN) simvastatin (ZOCOR) tablet 20 mg (CANCELED) 20 mg, Oral, NIGHTLY, First dose on Mon03/28/11 at 2100, Until Discontinued 2099 (Given - Provider: Sonja Martinez RN) 2023 (Given - Provider: Pao Wayne RN) sodium chloride 0.9 % flush 5 mL (CANCELED) 5 mL, Intravenous, EVERY 12 HOURS, First dose on Mon03/28/11 at 1915, Until Discontinued 191 (Not Given - Provider: Sonja Martinez RN - Reason: Order parameters not met) 0715 (Given - Provider: Primitivo Patel RN)1901 (Given - Provider: Primitivo Patel RN) 0715 (Given - Provider: Pao Wayne RN) traZODone (DESYREL) tablet 50 mg (CANCELED) 50 mg, Oral, NIGHTLY, First dose on Mon03/28/11 at 2100, Until Discontinued, Routine 2099 (Given - Provider: Sonja Martinez RN) 2024 (Given - Provider: Pao Wayne RN) Continuous Medication Order 03/28/2011 03/29/2011 03/30/2011 lactated ringers infusion 1,000 mL (CANCELED) 1,000 mL, at 100 mL/hr, Intravenous, CONTINUOUS, Starting on Mon03/28/11 at 1645, Until Mon03/29/11 at 2035 1645 (New Bag - Provider: Maria E Wynne, RN) PRN Medication Order 03/28/2011 03/29/2011 03/30/2011 HYDROmorphone (DILAUDID) tablet 2-4 mg 2-4 mg, Oral, EVERY 4 HOURS PRN, Starting on Mon03/28/11 at 2202, Until Mon03/30/11 at 1322, Pain, Routine 0030 (Given - Provider: Dennis Wilkerson RN)0423 (Given - Provider: Dennis Wilkerson RN)1316 (Given - Provider: Autumn Farah, NATALIYA)1834 (Given - Provider: Primitivo Patel, NATALIYA) 0705 (Given - Provider: Pao Wayne RN) HYDROmorphone (PF) (DILAUDID) 2 mg/mL injection 0.2 mg (CANCELED) 0.2 mg, Intravenous, EVERY 2 HOURS PRN, 2 doses, Starting on Mon03/28/11 at 1856, Until Mon03/30/11 at 1322, Pain, severe pain, Routine 2021 (Given - Provider: Sonja Martinez RN) HYDROmorphone (PF) (DILAUDID) 2 mg/mL injection 0.2-0.4 mg (CANCELED) 0.2-0.4 mg, Intravenous, EVERY 5 MIN PRN, Starting on Mon03/28/11 at 1521, Until Mon03/28/11 at 1821, Pain, For moderate pain give: 0.2 mg every 5 minute prn For severe pain give: 0.4 mg every 5 minutes prn Maximum dose: 4 mg per hour Hold for respiratory rate less than 10 per minute., PACU Recovery, Routine 1615 (Given - Provider: Maria E Wynne RN)1627 (Given - Provider: Maria E Wynne, RN)1644 (Given - Provider: Maria E Wynne RN) lidocaine-epiNEPHrine 1 %-1:200,000 injection (CANCELED) ONCE PRN, Starting on Mon03/28/11 at 1540, Until Mon03/28/11 at 1845, Intra-Operative (Intra-Procedure), Routine 1540 (Given - Provider: Delmer Tellez MD - Comment: 10 ml total) ondansetron (ZOFRAN) injection 4 mg (CANCELED) 4 mg, Intravenous, EVERY 30 MIN PRN, Starting on Mon03/28/11 at 1521, Until Mon03/28/11 at 1821, Nausea, May repeat 4 mg once in 30 minutes. Consider prochlorperazine if ineffective., PACU Recovery, Routine 1642 (Given - Provider: Maria E Wynne, RN) pneumococcal (PNEUMOVAX-23 (PPSV23)) vaccine inejction 0.5 mL (COMPLETED) 0.5 mL, Intramuscular, PRIOR TO DISCHARGE, 1 dose, Starting on Mon03/29/11 at 0913, Until Mon03/29/11 at 1834, Per Protocol, Hold for fever greater than 38.9C, Routine 1834 (Given - Provider: Primitivo Patel RN) vasopressin (PITRESSIN) injection (CANCELED) ONCE PRN, Starting on Mon03/28/11 at 1539, Until Mon03/28/11 at 1845, Bleeding, Intra-Operative (Intra-Procedure), Routine 1539 (Given - Provider: Delmer Tellez MD - Comment: 40 ml total) Linked Groups Order Group 1: ketorolac (TORADOL) injection 15 mg (COMPLETED)Jump to med 15 mg, Intravenous, EVERY 8 HOURS SCHEDULED, 3 doses, First dose on Mon03/28/11 at 1645, Last dose on Mon03/29/11 at 0600, Routine Followed by ibuprofen (ADVIL;MOTRIN) tablet 600 mgJump to med 600 mg, Oral, EVERY 6 HOURS SCHEDULED, First dose on Mon03/29/11 at 1400, Until Discontinued, - Begin after ketorolac discontinued. , Routine documented in this encounter Care Teams Binder Stripper Hand Relationship Specialty Start Date End Date Gina Rodgers MD [facility] [address] [place] [address] [place] [address] PCP - General 01/18/11 01/27/14 documented as of this encounter
--- OUTSIDE RECORDS SUMMARY | 2024-01-10 02:04 | XMS_ITS | Encounter Summary ---
Author Organization [facility] Address [facility] [place] [address] Care Team Providers Care Rest Room Attendant Name Role Phone Gina Morales MD Primary Care Provider [phone] Encounter Details Date Type Department Care Team (Late st Contact Info) Description 03/22/2011 1:00 PM EDT Clinical Support Same Day at [facility] [place] [phone] Pre-op exam Social History Tobacco Use Types Packs/Day Years [...] as of this encounter Progress Notes * Nate Seymour RN - 03/22/2011 12:58 PM EDT PAT questionnaire reviewed with patient while in Pre admission testing. Patient states she gets SOBwhen going up stairs or strenuous activity. She has never been worked up for this. She has had a history of nausea and vomitting with previous surgeries. She had blood work and an EKG done here today. documented in this encounter Plan of Treatment Not on file documented as of this encounter Procedures Procedure Name Priority Date/Time Associated Diagnosis Comments EKG 12-LEAD Routine 03/22/2011 1:05 PM EDT Pre-op exam documented in this encounter Results * EKG 12 Lead (03/22/2011 1:05 PM EDT) Ventricular rate 58 BPM MUSE SYSTEM Atrial Rate 58 BPM MUSE SYSTEM P-R Interval 166 ms MUSE SYSTEM QRS Duration 84 ms MUSE SYSTEM Q-T Interval 424 ms MUSE SYSTEM QTC Calculated (Bezet) 416 ms MUSE SYSTEM Calculated P [place] 53 degrees MUSE SYSTEM Calculated R [place] 62 degrees MUSE SYSTEM Calculated T [place] 45 degrees MUSE SYSTEM INTERPRETATION Sinus bradycardia Otherwise normal ECG No previous ECGs available Confirmed by fellow MD Dale, Scar ([id number]) on 03/23/2011 11:34:48 AM Confirmed by MD Dennis, José ([id number]) on 03/23/2011 3:58:42 PM MUSE SYSTEM 03/22/2011 1:05 PM EDT 03/23/2011 3:58 PM EDT Delmer Velasco MD ECG ORDERABLES MUSE SYSTEM documented in this encounter Visit Diagnoses Diagnosis Pre-op exam Preoperative examination, unspecified documented in this encounter Care Teams Rest Room Attendant Relationship Specialty Start Date End Date Gina Morales MD [facility] [address] [place] [address] [place] [address] PCP - General 01/18/11 01/27/14 documented as of this encounter
--- OUTSIDE RECORDS SUMMARY | 2024-01-10 02:04 | XMS_ITS | Encounter Summary ---
Author Organization [facility] Address [facility] [place] [address] Care Team Providers Care Finance Advisor Name Role Phone Gina Morales MD Primary Care Provider [phone] Reason for Visit * Reason Comments Pre-op Exam Encounter Details Date Type Department Care Team (Late st Contact Info) Description 03/22/2011 10:30 AM EDT Office Visit Obstetrics [place] [address] Devi Regalado APRN [facility] OBSTETRICS & [place] [address] Pre-op exam (Primary Dx) Discharge Disposition: Home Social History [...] Sign Reading Time Taken Comments Blood Pressure 128/80 03/22/2011 10:10 AM EDT Pulse 66 03/22/2011 10:10 AM EDT Temperature 36.7 ??C (98.1 ??F) 03/22/2011 1 0:10 AM EDT Respiratory Rate 16 03/22/2011 10:1 0 AM EDT Oxygen Saturation - - Inhaled Oxygen Concentration - - Weight 106.2 kg (234 lb 1.6 oz) 011 10:10 AM EDT Height 165.1 cm (5' 5) 03/22/2011 10:1 0 AM EDT Body Mass Index 38.96 03/22/2011 10:10 AM EDT documented in this encounter Progress Notes * Delmer Velasco MD - 03/22/2011 12:50 PM EDT Based on her + cough stress test, I recommended a sling with her prolapse repair. I discussed the planned procedure with the patient, including risks and benefits. We reviewed the consent form, which the patient has signed. As part of our discussion, we reviewed risks including but not limited to infection, bleeding, injury to bladder, urethra, ureters, bowel, possible fistula formation. We discussed thatwe perform cystoscopy to assure the ureters are working well prior to ending the procedure. We discussed rare risks of peripheral leg nerve injury due to positioning, retraction, or sutures. We also reviewed potential changes in bladder, bowel and sexual function after prolapse and anti-incontinence operations. We reviewed risks of mesh erosion from the sling that can occur even many years out from surgery and risks of persistent pain. * Devi Regalado APRN - 03/22/2011 11:50 AM EDT See H&P documented in this encounter H&P Notes * Devi Regalado APRN - 03/22/2011 9:53 AM EDT Date of Visit: 03/22/2011 Planned Surgery Date: 03/28/11 Planned Procedure: Vaginal hysterectomy, high uterosacral ligament suspension, anterior / posteriorcolporrhaphy, mid urethral sling Indications/Pre-op Diagnosis: prolapse HISTORY OF PRESENT ILLNESS: Ms. Ramírez is a 51 y.o. para 5 woman who presents for her preoperative examination. Patient with history of symptomatic prolapse, desires surgical repair. Please see prior encounter notes for more detail. REVIEW OF SYMPTOMS/FUNCTIONAL STATUS: Chest pain: no Shortness of breath: yes with exercise Can you walk 1/2 mile or more? yes Can you go up more than 2 flights of stairs? Yes, but has trouble with knees, and SOB with exercise Patient can dress herself? yes Prepare meals herself? yes Bleeding disorder (h/o nose bleeds, excessive bleeding following a surgical procedure?): no Personal or Family history of blood clots?: no Sexually active?: in the past, not currently Last PAP smear: Up to date, normal Past anesthesia problems?: no Past Medical History Diagnosis Date ??? Bipolar disorder ADHD ??? Learning disability ??? Hyperlipemia ??? Obesity ??? Alcohol abuse, in remission sober since 2000 ??? Uterine prolaps Past Surgical History Procedure Date ??? Tubal ligation ??? Knee arthroscopy bilateral ??? Carpal tunnel release bilateral ??? Tonsillectomy Social hx: Nonsmoker Allergies Allergen Reactions ??? Oxycontin (Oxycodone) Itching Outpatient prescriptions marked as taking for the 03/22/11 encounter (Office Visit) with DEVI REGALADO Sig Dispense Refill ??? estrogen, conjugated,-medroxyprogesterone (PREMPRO) 0.3-1.5 mg per tablet Take 1 tablet by mouth daily. ??? simvastatin (ZOCOR) 20 mg tablet Take 20 mg by mouth nightly. ??? sertraline (ZOLOFT) 100 mg tablet Take 200 mg by mouth daily. ??? traZODone (DESYREL) 50 mg tablet Take 50 mg by mouth nightly. ??? QUEtiapine (SEROQUEL XR) 200 mg 24 hr tablet Take 200 mg by mouth nightly. ??? pantoprazole (PROTONIX) 40 mg tablet Take 40 mg by mouth daily. ??? ibuprofen (ADVIL;MOTRIN) 800 mg tablet Take 800 mg by mouth every 8 hours as needed. ??? divalproex (DEPAKOTE) 500 mg EC tablet Take 1,000 mg by mouth every evening. EXAM: General: alert/oriented x 3, NAD, cooperative ENT: No lymphadenopathy, pharynx clear, Good dentition Neck: No lymphadenopathy, no thyromegaly Chest: CTA martín COR: RRR, no murmur appreciated Abdomen: soft, obese, non tender, no organomegaly Pelvic: positive cough stress test Rectal: deferred to operating room. Extremities: no calf tenderness, no swelling IMPRESSION: Shobha Ramírez is a 51 y.o. woman with prolapse who desires surgical repair. PLAN: 1. We will proceed with the above procedures on 03/28/11. 2. Anesthesia preference: per anesthesia 3. (x) Medications and herbal preparations reviewed Discussed: (x) Discontinuation of all herbal preparations, vitamin E 7 days preop (x) ASA, NSAIDS, Plavix: (x) Hormones: estrogen ?? (x) NPO after MN 4. (x) Clear liquids 24 hours prior to surgery. 5. REPORTS that she is HARD OF HEARING DEVI REGALADO APRN Division of Female Pelvic Medicine and Reconstructive Surgery documented in this encounter Plan of Treatment Not on file documented as of this encounter Visit Diagnoses Diagnosis Pre-op exam- Primary Preoperative examination, unspecified documented in this encounter Care Teams Finance Advisor Relationship Specialty Start Date End Date Gina Morales MD [facility] [address] [place] [address] [place] [address] PCP - General 01/18/11 01/27/14 documented as of this encounter
--- OUTSIDE RECORDS SUMMARY | 2024-01-10 02:04 | XMS_ITS | Encounter Summary ---
Author Organization [facility] Address [facility] [place] [address] Care Team Providers Care Vault Person Name Role Phone Derek Rodgers MD Primary Care Provider [phone] Reason for Visit * Reason Comments Uterine Prolapse Urinary Incontinence Encounter Details Date Type Department Care Team (Late st Contact Info) Description 01/19/2011 1:15 PM EDT Office Visit Obstetrics [place] [address] Casey Velasco MD [facility] OBSTETRICS [place] [address] Urinary incontinence (Primary Dx); Fecal incontinence; Uterovaginal prolapse, incomplete Discharge Disposition: Home Social History Tobacco Use Types Packs/Day Years Used Date Smoking Tobacco: Never Alcohol Use Standard Drinks/Week Comments No 0 (1 standard drink = 0.6 oz pur e alcohol) Quit, 2000 Sex and Gender Information Value Date Recorded Sex Assigned at Not on file Gender Identity Not on file Sexual Orientation Not on file documented as of this encounter Last Filed Vital Signs Vital Sign Reading Time Taken Comments Blood Pressure 130/80 01/19/2011 1:39 PM EDT Pulse 76 01/19/2011 1:39 PM EDT Temperature - - Respiratory Rate - - Oxygen Saturation - - Inhaled Oxygen Concentration - - Weight 104.3 kg (230 lb) 01/19/2011 1:39 PM EDT Height 165.1 cm (5' 5) 01/19/2011 1:39 PM EDT Body Mass Index 38.27 01/19/2011 1:39 PM EDT documented in this encounter Patient Instructions * Patient Instructions* Casey Velasco MD - 01/19/2011 3:15 PM EDT A Division of the Department of Obstetrics & Gynecology Date of Surgery: Planned Surgery: Before surgery Depending on the type of surgery that you will be having, some women will experience difficulty voiding for 1-2 days after surgery. Occasionally, this can last for up to 6 weeks after surgery. Options for emptying the bladder if you are unable to yourself include self catheterization, placing a urethral catheter to a bag or less commonly, suprapubic bladder catheterization. The choice among thesevaries with surgeons however if you have a strong preference you should make this known. You may or may not need to stay in the hospital overnight. You should plan to have a family member or a friend available to drive you home the next day, by late morning, early afternoon. Occasionally, you may need to stay longer if your doctor determines you are not ready for discharge. Avoid aspirin, NSAIDS (ibuprofen, Aleve, Motrin, Advil and others), Ginko biloba, garlic pills, other herbal products and Vitamin E for 10 days prior to surgery. The day before surgery (or if your surgery is scheduled for a Monday - the Monday before surgery) the same day program will call you to let you know what time to come into hospital. DIET: ____You should be on clear liquids only the day prior to surgery. ____You can eat regular food until midnight and do not eat or drink anything after midnight the night before surgery On the day of surgery Bring loose fitting comfortable clothes to wear home. You will be asked to report to Same Day Surgery (LOCATION) An IV will be started and you will often be given antibiotics. You will meet with the anesthesiologist who will guide you in choosing your type of anesthesia. After surgery you will be taken to the recovery room (PACU), you will have a catheter in your bladder and sometimes cotton gauze (vaginal packing) in your vagina You will be given IV or oral pain medications; often these pain medications will be delivered according to your demand. If you are nauseated please ask for medication to prevent vomiting, you should also delay eating until you are hungry and feel you can tolerate something orally. Hospital discharge As long as your vital signs (temperature, blood pressure) are stable, you can go home once you are able to drink clear fluids, eat a regular diet, and walk short distances You will be given prescriptions for oral pain medication Once you are home You should be able to resume your usual activities of daily living (eating, drinking, washing and walking). You can walk or climb stairs as long as you are not straining. You should avoid more vigorous exercise for at least 6 weeks. Complete recover may take 3-6 weeks, and sometimes longer. It is very important to avoid lifting more than 5 pounds for 6 weeks. You may take a shower anytime. Do not soak in a tub for 2 weeks, this may cause your stitches to dissolve too early. Do not douche Do not use tampons or have vaginal intercourse for 6 weeks. Most women will experience some vaginal bleeding and discharge after surgery, you will want to be certain to have some menstrual type pads at home. Some women will experience constipation post operatively, it is important to be sure to take a stool softener and fiber supplement after surgery until you are having regular, soft bowel movements. Please call us if you have not had a bowel movement after 5 days. It is important to try to avoid straining with a bowel movement. You should avoid driving for 1-2 weeks. Call If you have any signs or symptoms of infection: Fever over 101 F, chills, nausea, vomiting, diarrhea, intolerance of food or drink Urinary frequency, urgency, or feeling incomplete emptying of the bladder. If your wound is red, hot, swollen, tender, or draining yellow/green fluid. Be certain to call if you have any questions or concerns. Contact information documented in this encounter Progress Notes * Casey Velasco MD - 01/19/2011 2:22 PM EDT Female Pelvic Medicine and Reconstructive Surgery @ [facility] Patient Name: Shobha Ramírez Patient Primary Care Provider: DEREK RODGERS MD Referring Provider: Lidia Valdovinos MD Chief Complaint: Prolapse,urinary incontinence, fecal incontinence History of Present Illness: Ms. Ramírez is a 50 y.o. old para 5 woman, seen at the kind request of Dr. Valdovinos. She presents for evaluation and assessment of prolapse of 1-2 years duration. She notes some bulging of tissue at the introitus, worse when standing. She has also been having trouble with loss of control for urine and gas. She has had rare episodes of loss of bowel control as well. She tried a pessary with Dr. Valdovinos and found it very uncomfortable. She did not want to use it because she finds the concept of the pessary as too dirty as well. Dr. Valdovinos' exam documents the cervix at the introitus. She was also evaluated for post-menopausal bleeding by Dr. Valdovinos with the following evaluation: Endometrial biopsy: 12/23/2010, negative (inactive EM) US 01/06/2011: Normal uterus, EM stripe 4.4 mm, normal right ovary, L ovary not visualized. Goals for visit: 1. All three are bothering her. Bladder Function Urinary incontinence: yes No. episodes: Almost every day, dribbles; leaks with cough, sneeze, but also with urge, inability to get to the bathroom. Pad use (per day): 1-3 Pad type: liner Daytime voids: Every 1/2 - 1 hours Nocturia: 3 Previous urinary incontinence treatment (Medical/Behavioral/Surgical): pessary Storage symptoms x Urinary frequency x Nocturia x Stress urinary incontinence - leakage with exertion, cough/sneeze x Urge urinary incontinence - leakage preceded immediately by urge to void Noctural enuresis - NOT IN ASSOCIATION WITH URGE Continuous urinary leakage Other: (e,g. giggle, intercourse-related) Bladder sensation Normal - aware of filling and increased sensation up to desire to void xx Increased - feels an early and persistent need to void Reduced - aware of filling but NOT definite desire to void Absent - NO sensation of filling or need to void Non-specific - No specific bladder symptoms during filling or void Voiding symptoms None At times Slow stream Spraying At times Intermittent stream - stop/start on > 1 occasion during void Straining - muscular effort to initiate, maintain OR improve stream x Terminal dribble - prolonged final part of void x Feeling of incomplete emptying Bladder irritants: Caffeine intake: 3-4 cups of coffee / day Cigarette smoking (packs, time, if quit when): Very few in past Alcohol: 2000 quit Pelvic Organ Prolapse (POP) Any personally see or feel a vaginal bulge? yes What precipitates prolapse or symptoms of prolapse? lifting Extent of protrusion: 1/2 Previous treatment for POP (physical therapy, pessary, surgery)?: Tried pessary for a few weeks, was painful Bowel Function Fecal incontinence (yes/no): Yes, but less than used to Number of fecal incontinent episodes (day/week): once in 6 months Number of bowel movements (day/week): Tries every day, can skip several days Defecatory Dysfunction: Symptom Presence Symptom Presence NONE Incomplete Emptying Straining x Infrequent stools (<3 week) x Splinting x Abdominal discomfort Loose stools Defecatory urgency Hard stools x Other Sexual Function Active?: no Pain with intercourse?: A little in the past If yes, insertional / deep?: n/a Desire to retain sexual function?: n/a Change or concern regarding libido?: n/a Gynecologic/Obstetric History: Last PAP smear: negative Last mammogram: Last year Past Medical History Diagnosis Date ??? Bipolar disorder ADHD ??? Learning disability ??? Hyperlipemia ??? Obesity ??? Alcohol abuse, in remission sober since 2000 ??? Uterine prolaps Past Surgical History Procedure Date ??? Tubal ligation ??? Knee arthroscopy bilateral ??? Carpal tunnel release bilateral ??? Tonsillectomy No Known Allergies Outpatient prescriptions marked as taking for the 01/19/11 encounter (Office Visit) with CASEY VELASCO Medication Sig Dispense Refill ??? estrogen, conjugated,-medroxyprogesterone (PREMPRO) [...] Take 200 mg by mouth nightly. ??? methylphenidate (METADATE ER) 20 mg ER tablet Take 20 mg by mouth every morning. ??? pantoprazole (PROTONIX) 40 mg tablet Take 40 mg by mouth daily. ??? ibuprofen (ADVIL;MOTRIN) 800 mg tablet Take 800 mg by mouth every 8 hours as needed. ??? Cholecalciferol, Vitamin D3, (VITAMIN D) 1,000 unit Tab Take 1 tablet by mouth daily. ??? divalproex (DEPAKOTE) 500 mg EC tablet Take 1,000 mg by mouth every evening. ??? DISCONTD: pantoprazole (PROTONIX) 40 mg tablet 20MG = 1 Tablet(s), PO, Once daily Family History Problem Relation Age of Onset ??? Heart Failure Mother ??? Hypertension Father ??? Asthma Sister ??? Diabetes Maternal Grandmother History Social History ??? Marital Status: Spouse Name: N/A Number of Children: N/A ??? Years of Education: N/A Social History Main Topics ??? Smoking status: Never Smoker ??? Smokeless tobacco: Not on file ??? Alcohol Use: No Quit, 2000 ??? Drug Use: Not on file ??? Sexually Active: Not on file Other Topics Concern ??? Not on file Social History Narrative ??? No narrative on file ROS: Review of all other systems negative except for those mentioned above or indicated below: System Symptom Presence Constitutional Weight Loss a little Weight gain Fatigue x Eyes Vision changes Wears glasses ENT/Mouth Sinus problems Stuffy; prior nasal fracture Mouth sores Cardiovascular Chest pain Atypical without exertion WINTER X (stairs) Leg swelling Heart palpitations Respiratory Wheezing Hemoptysis SOB Chronic cough GI Nausea/vomiting When GERD bothersome Abdominal pain Musculoskeletal Muscle weakness Skin/breast Pain in breast some Discharge Masses Rash/ulcer Neurological Dizziness Numbness Trouble Walking Psychiatric Depression x Anxiety x Endocrine Abnormal thirst x Hot flashes X; stopped period until 11/2009, had bleeding Hematologic Frequent bruising Blood clots (DVT / PE) Prior problems w/ anesthesia Outside medical records reviewed: I reviewed Dr. Valdovinos' office notes. Data reviewed (images/urodynamic studies): A bladder scan was performed to rule out urinary retention. A urinalysis was performed to rule out infection. OBJECTIVE: Bladder scan (to exclude urinary retention): 36 ml Urine Dip (to rule out infection): negative for all components Blood pressure 130/80, pulse 76, height 165.1 cm (5' 5), weight 104.327 kg (230 lb), last menstrual period 12/19/2010. General: normal appearing female, pleasant mood, normal speech Skin: skin of abdomen/pelvis normal Respiratory: clear to auscultation bilaterally Neuro: no [...] test (empty supine): negative External Genitalia: Vulva, Colburn's and Bartholin glands normal, urethra without tenderness or mass Vagina: With Valsalva, the anterior vaginal wall comes 1 cm above the hymen, the posterior vagina wall comes 1 cm below the hymen, and the cervix/apex comes 4 cm above the hymen. With standing, the anterior wall come to the hymen and the cervix to 3 cm above the hymen. Atrophic epithelium (yes/no)?: no Discharge?: no Cervix: Normal other than prolapse Bimanual (uterus/adnexa): anteflexed uterus, slightly tender; uterus upper limits of normal. No masses at adnexae, non-tender Rectovaginal: No masses appreciated, non-tender Rectocele (yes/no): yes, large Enterocele (yes/no): no Stool guaiac: n/a Anal sphincter: Anal wink: Normal puckering, limited change Bulbospongiosus reflex: n/a Resting tone (0-5): 5 EAS contraction: diminished Sphincter defect: Not appreciable POP Q Measurements: Aa -1 Ba -1 C -4 GH 4,5 PB 2.5, 2.5 TVL 10 Ap +1 Bp +1 D -9 Impression: Ms. Ramírez is a .50 y.o. woman with: ?? Uterovaginal prolapse, incomplete. ?? Urinary incontinence, mixed by symptoms. ?? Anal incontinence, primarily flatal, likely related to gas pocketing and stool pocketing in distal rectum with rectocele, pelvic floor weakness. Recommendations: I reviewed the anatomy and physiology of pelvic support disorders, urinary and fecal incontinence. We discussed options for management including: Continued observation, pelvic floor exercises (supervised or unsupervised), pessary and/or surgery. Based on the patients expressed goals for management I have recommended the following: ?? We discussed surgical options. Given that Dr. Valdovinos noted the cervix descends to the introitus,I would lean towards hysterectomy with any prolapse repair. We reviewed [place] ligament versus meshrepairs and the pros/ cons of each. ?? She agrees to vaginal hysterectomy, high uterosacral ligament suspension, anterior / posterior colporrhaphy. We discussed this may have a higher failure rate than VH combine with LS mesh sacral colpopexy but that the risks are lower as well. ?? I recommended a sling with surgery to treat her stress urinary incontinence, but will want to document UMA with a full bladder at her preop visit. (x) ACOG or other informational pamphlets given to patient CASEY VELASCO Division of Female Pelvic Medicine/Reconstructive Surgery I spent 70 minutes total with the patient, with 40 minutes of the time spent [id number] in discussing her diagnosis and reviewing options for treatment. CC: MD DEREK Mckay MD documented in this encounter Plan of Treatment Not on file documented as of this encounter Procedures Procedure Name Priority Date/Time Associated Diagnosis Comments HYSTERECTOMY, VAGINAL, <250 GRAMS Routine 01/19/2011 3:18 PM EDT Urinary incontinence Fecal incontinence Uterovaginal prolapse, incomplete BLADDER SCANNER Routine 01/19/2011 Urinary incontinence POCT URINE DIPSTICK Routine 01/19/2011 Urinary incontinence documented in this encounter Results * Bladder Scanner (01/19/2011) Scan 36 Casey Velasco MD URO PROC W/O RFL ORD ERABLES * POCT urine dipstick (01/19/2011) POC Sp [place] 1.002 - 1.030 POC pH, UA 5.0 [...] in this encounter Visit Diagnoses Diagnosis Urinary incontinence- Primary Unspecified urinary incontinence Fecal incontinence Full incontinence of feces Uterovaginal prolapse, incomplete documented in this encounter Care Teams Vault Person Relationship Specialty Start Date End Date Derek Rodgers MD [facility] [address] [place] [address] [place] [address] PCP - General 01/18/11 01/27/14 documented as of this encounter
--- OUTSIDE RECORDS SUMMARY | 2024-01-10 02:04 | XMS_ITS | Encounter Summary ---
Author Organization [facility] Address [facility] [place] [address] Care Team Providers Care Principal Clerk Name Role Phone Gina Rodgers MD Primary Care Provider [phone] Encounter Details Date Type Department Care Team (Late st Contact Info) Description 03/28/2011 12:16 PM EDT - 03/28/2011 4:52 PM EDT Surgery [place] [address] Delmer Tellez MD [facility] DR OBSTETRICS [place] [address] HYSTERECTOMY, VAGINAL, <250 GRAMS (WRVU 14.15) Social History Tobacco Use Types Packs/Day Years [...] Sign Reading Time Taken Comments Blood Pressure 132/72 03/28/2011 4:45 PM EDT Pulse 83 03/28/2011 4:45 PM EDT Temperature 36.6 ??C (97.9 ??F) 03/28/2011 3:58 PM ED T Respiratory Rate 12 03/28/2011 4:45 PM EDT Oxygen Saturation 96% 03/28/2011 4:45 PM EDT Inhaled Oxygen Concentration - - Weight - - Height - - Body Mass Index - - documented in this encounter Discharge Instructions * Patient Instructions* Seferino Bull MD - 03/30/2011 7:20 AM EDT PATIENT DISCHARGE INSTRUCTIONS UroGynecology phone number: [phone] Call your doctor if you develop: --A [...] 03/29/2011 4:54 PM EDT 4PM called by [employer] internet sales associate indicating that Ms Darrell meeks no ride home. Advised her that SW [...] to assess at home. Referral sent to [facility] via e- discharge for activation on [...] urine. No vaginal drainage noted. * Rubén aGy A - 03/28/2011 10:03 PM EDT Gynecology - [...] % SpO2: [93 %-100 %] Date 03/28/11 07 - 03/29/11 0659 Shift [id number] [phone] 24 Hour Total I N T A [...] Gay - 03/28/2011 11:06 AM EDT Inpatient RAC SPECIALIST - Admission Interval Note I have reviewed [...] Office of Care Management (OCM) / Clinical Turbine Attendant (CRC)/ Initial Assessment Discussed patient with Provider [...] , 51 yea rold female residing in [place], [place] alone in a second floor apartment. She has friends who will pick her up at discharge. 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 ADVANCE DIRECTIVES: None on file. INSURANCE COVERAGE / FINANCIAL ISSUES: [facility] with copays for prescriptions. 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 PRIMARY CARE PHYSICIAN: GINA RODGERS MD [address] / [facility] [address] POTENTIAL DISCHARGE NEEDS: None anticipated at this [...] Tellez MD - 03/28/2011 4:31 PM EDT [facility] [place] Patient Name: Shobha Díaz : [id number] MR#: [id number] Case Date: 03/28/2011 Surgeon: Surgeon(s) and Role: * DELMER TELLEZ MD - Primary * RUBÉN GAY MD - Resident-Plywood Patcher Preoperative diagnosis: Uterovaginal prolapse, incomplete Postoperative diagnosis: [...] colpotomy was performed with sharp dissection. A [place] retractor was used to displace the bladder [...] sutures was facilitated by placing a large [place] retractor and holding the packing in the [...] used to reapproximate the full-thickness vaginal wall [id number]. This was continued out to the perineal body. Care was taken to avoid any excessive narrowing of the vaginal introitus. Sponge and needle counts were correct at the end of the procedure. * Discharge Summary - Seferino Bull MD - 03/28/2011 4:10 PM EDT Inpatient RAC SPECIALIST - Discharge Summary Patient Name: Shobha Díaz [...] for hysterectomy with prolapse repair was made. Chitina ligament versus mesh repairs were discussed with [...] incontinence. Hospital Course: Shobha was admitted on 10/ and underwent the above procedure. Her surgery [...] Instructions PATIENT DISCHARGE INSTRUCTIONS UroGynecology phone number: [phone] Call your doctor if you develop: --A [...] Department: Dept Phone: Center: 05/10/2011 3:00 PM Delmer Tellez MD [facility] [phone] [facility] 05/10/2011 3:00 PM Elizabeth Grigsby APRN [facility] [phone] [facility] Future Orders Please Complete By Expires Referral to Home Health [MEC9703 CPT(R)] Process Instructions: Scheduling Instructions: Comments: DOCUMENTATION FOR VNA SERVICES (INCLUDING THOSE PATIENTS WITH MEDICARE COVERAGE REQUIRING HOME VNA SERVICES AND/OR HOSPICE SERVICES) PATIENT'S LOCATION: Shobha Díaz [address] [place] [phone] (home) Experimental Physicist's Name: Patient In discussion with the attending physician, it is certified that this patient is under their care and that they, or a nurse practitioner, clinical nurse specialist or physician's safety admin assistant who is working directly with them, [...] activity, coping. . HOME HEALTH CARE AGENCY: [facility]. PHONE: [phone] FAX: [phone] Start of care: Day after discharge (03-31-11) Please note that any additional orders needs or changes will need to be obtained from this patient's PCP: GINA RODGERS MD [address] / [place] [id number] All [facility] agencies which cover the area of patient's residence have been reviewed, either verbally bhanu writing, and patient/family have chosen the home health care agency noted Questions: Responses: Agency name and contact information [facility] Patient location post discharge [email or web address] What services are requested Registered Nurse Start date 03/31/2011 Responsible MD post discharge contact info PCP Discharge patient [ADT8 Custom] Process Instructions: Scheduling Instructions: Comments: Discharge to home Questions: Responses: Call to speak to [employer] resident managed services sales consultant for: [[id number] Custom] Process Instructions: Scheduling Instructions: Comments: - For temperature greater than 38.3 degrees C or fever/chills - Nausea or vomiting preventing PO intake - Vaginal bleeding requiring more than 1 sanitary pad every hour - Pain not controlled by prescription medications - Inability to void Questions: Responses: Provider Contact Information: GINA RODGERS MD [phone] Discharge References/Attachments: Discharge References/Attachments None Signed: SEFERINO [...] Operative Note Patient Name: Shobha Díaz : [id number] MR#: [id number] Case Date: 03/28/2011 Surgeon: Surgeon(s) and Role: * DELMER TELLEZ MD - Primary * RUBÉN GAY MD - Resident-Plywood Patcher Preoperative diagnosis: Uterovaginal prolapse, incomplete Postoperative diagnosis: [...] EDT Delmer Tellez MD HEMATOLOGY ORDERABLE S [facility] MILL[facility] * (ABNORMAL) CBC (with Diff) (03/30/2011 3:30 [...] of variation 13.5 10.9 - 14.4 % MIGUELITO BOLTONENNIUM Mean Platelet Volume 10.0 9.0 - 12.0 fL MIGUELITO MORRISIUM Blood specimen (specimen) 03/30/2011 3:30 AM EDT 03/30/2011 3:52 AM EDT Delmer Tellez MD HEMATOLOGY ORDERABLE S MIGUELITO MORRISIUM * (ABNORMAL) Creatinine, serum (03/30/2011 3:30 AM EDT) Creatinine 0.58(L) 0.70 - 1.20 mg/dL MIGUELITO BOLTONENNIUM Est Glomerular Filtration Rate >60 >=60 CERFERNANDO BOLTONENNIUM Comment: The National Kidney Disease Education Program [...] Tellez MD CHEMISTRY ORDERABLES Performing Organization Address [facility] Co de Phone Number MIGUELITO MORRISIUM * BUN (03/30/2011 3:30 AM EDT) Blood Urea Nitrogen 11 8 - 18 mg/dL CERNER MILLENNIUM Comment:result rechecked-AFP Blood specimen (specimen) 03/30/2011 3:30 AM EDT 03/30/2011 3:52 AM EDT Delmer Tellez MD CHEMISTRY ORDERABLES Performing Organization Address [facility] de Phone Number MIGUELITO BOLTONENNIUM * (ABNORMAL) Electrolytes panel (03/30/2011 3:30 AM EDT) Sodium 124(L) 135 - 145 mmol/L CERNER MILLENNIUM Potassium 4.5 3.5 - 5.0 mmol/L [...] Tellez MD CHEMISTRY ORDERABLES Performing Organization Address [facility]/ZIP Co de Phone Number MIGUELITO MORRISIUM * POCT GLUCOSE LAB USE ONLY (03/29/2011 [...] HEMATOLOGY ORDERABLE S CERNER MILLENNIUM * (ABNORMAL) CBC (with Diff) (03/29/2011 [...] EDT Delmer Tellez MD HEMATOLOGY ORDERABLE S [facility] MILL[facility] * (ABNORMAL) Electrolytes panel (03/29/2011 2:24 PM EDT) Pathologist [facility] Sodium 124(L) 135 - 145 mmol/L CERNER [...] PM EDT Delmer Tellez MD CHEMISTRY ORDERABLES CERFERNANDO BOLTONENNIUM * (ABNORMAL) A-DIFF (03/29/2011 5:08 AM EDT) [...] Delmer Tellez MD HEMATOLOGY ORDERABLE S CERFERNANDO [employer] SiliconENNIUM * (ABNORMAL) CBC (with Diff) (03/29/2011 5:08 [...] Delmer Tellez MD HEMATOLOGY ORDERABLE S CERNER [employer] * (ABNORMAL) Creatinine, serum (03/29/2011 5:08 AM [...] Tellez MD CHEMISTRY ORDERABLES Performing Organization Address [facility] de Phone Number [facility] [employer]NIUM * (ABNORMAL) BUN (03/29/2011 5:08 AM EDT) Blood Urea Nitrogen 6(L) 8 - 18 mg/dL CERNER MILLENNIUM Blood specimen (specimen) 03/29/2011 5:08 AM EDT 03/29/2011 5:15 AM EDT Delmer Tellez MD CHEMISTRY ORDERABLES Performing Organization Address [facility] Co de Phone Number [facility] [employer] * (ABNORMAL) Electrolytes panel (03/29/2011 5:08 AM [...] EDT Delmer Tellez MD CHEMISTRY ORDERABLES MIGUELITO BOLTONENNIUM * Surgical Pathology Report (03/28/2011 2:08 PM EDT) Pathologist [facility] Surgical Pathology Report [id number] ? Location: [facility]; [facility]; The signing pathologist has (i) examined the [...] Briones, glistening and smooth with scattered ? purple-smiht, cystic foci. ? Thickness: ?Up to 0.8 cm. ? Lesions: ?Scattered purple-smith, hemorrhagic, cystic ? foci are present, averaging 0.1 cm. ?Myometrium: ?Surry, smooth to finely reticulated. ? Thickness: ?Up to 2.0 cm. ? Lesions: ?Well-circumscri bed, yellow-white, ? intramural fibroid nodules present, ? varying from 0.2 to 1.6 cm without evidence ? of hemorrhage or necrosis. ?Uterine serosa: ?Red posteriorly, focally hemorrhagic. ?Cervix: ?The 3.3 x 3.5-cm-cs-diamete r cervix is a ? pink, congested and smooth mucosa ? surrounding a 0.1-da-oh-diamete r patulous ? os. ??In the cervical canal is a briones, ? congested, focally hyperemic lining with ? scattered, gelatinous cysts averaging ? 0.2 cm. Sections/Processi ng: ? Railcar Switchman sections are submitted as follows: ??(1) anterior cervix; (2) posterior cervix; (3) anterior endometrium; (4) posterior endometrium; (5) employee's representative intramural fibroid nodule; (6) posterior serosal [...] CR-0 03/29/11 ARS 03/29/11 Verified by: ? Davy Boyd MD ?Pathologist ?(Electronic Signature) The attending pathologist whose signature appears on this report has reviewed all diagnostic slides and has edited the gross and/or microscopic portion of the report in rendering the final pathologic diagnosis. [facility] 03/28/2011 2:08 PM EDT Delmer Tellez MD PATHOLOGY/CYTOLOGY O ABBIE Performing Organization Address [facility] de Phone Number [facility] * Specimen to Pathology (surgical or derm) (03/28/2011 1:58 PM EDT) AP Specimen 03/28/2011 1:58 PM EDT 03/28/2011 1:58 PM EDT Narrative [facility] - 03/28/2011 1:58 PM EDT Specimen requisition ordered. ??Separate Pathology report to follow Delmer Tellez MD PATHOLOGY/CYTOLOGY O ABBIE Performing Organization Address [facility] Co de Phone Number [facility] * Duplex for DVT, Leg, Unilat (03/28/2011 11:06 AM EDT) VB Text Report Department: Vascular Surgery Lab Patient: [id number] (SHOBHA DÍAZ) CPT Code: 62687 ICD-9: 729.5 Referring Physician: DELMER TELLEZ Indication: [...] Urinary, incontinence, stress female Female stress incontinence Uterovaginal prolapse, incomplete Fecal incontinence Full incontinence of feces Urinary incontinence Unspecified urinary incontinence documented in this encounter Administered Medications Inactive Administered Medications - up to 3 most recent administrations Medication Order MAR Action Action Date Dose Rate Site ceFAZolin (ANCEF) 2g in dextrose 5% 100mL 2 g, Intravenous, ONCE, 1 dose, On 03/28/11 at 1130, Administer over 30 Minutes, Redose after 4 hours., Day of Surgery (Day of Procedure) Given 03/28/2011 1:04 PM EDT 2 g Left Arm diphenhydrAMINE (BENADRYL) tablet 25 mg 25 mg, [...] 4:45 PM EDT 1,000 mLs 100 mL/hr lidocaine-epiNEPHrine 1 %-1:200,000 injection ONCE PRN, Starting on Mon03/28/11 at 1540, Until Mon03/28/11 at 1845, Intra-Operative (Intra-Procedure), Routine Given 03/28/2011 3:40 PM EDT 1 mL 19- Surgical Site methylphenidate (METADATE ER) CR tablet 20 mg [...] Given 03/28/2011 9:00 PM EDT 50 mg vasopressin (PITRESSIN) injection ONCE PRN, Starting on Mon03/28/11 at 1539, Until Mon03/28/11 at 1845, Bleeding, Intra-Operative (Intra-Procedure), Routine Given 03/28/2011 3:39 PM EDT 10 Units 19- Surgical Site documented in this encounter Active and Recently [...] 2100, Routine 2357 (Given - Provider: Pao Wayne RN) divalproex (DEPAKOTE) EC tablet 1,000 mg (CANCELED) 1,000 mg, Oral, EVERY EVENING, First dose on Mon03/28/11 at 2000, Until Discontinued, Routine 2000 (Given - Provider: Sonja Martinez RN) 1714 (Given - Provider: Primitivo Patel, NATALIYA) docusate sodium (COLACE) capsule 100 mg 100 mg, Oral, 2 TIMES DAILY, First dose on Mon03/28/11 at 2100, Until Discontinued, Routine 2100 (Given - Provider: Sonja Martinez RN) 0908 (Given - Provider: Primitivo Patel, NATALIYA)2023 (Given - Provider: Pao Wayne RN) 0825 (Given - Provider: Primitivo Patel RN) esomeprazole (NEXIUM) capsule 40 mg (CANCELED) 40 mg, Oral, DAILY, First dose on Mon03/29/11 at 0900, Until Discontinued, Routine 09 (Given - Provider: Primitivo Patel RN) 0825 (Given - Provider: Primitivo Patel RN) ibuprofen (ADVIL;MOTRIN) tablet 600 mg(Linked Group 1) 600 mg, Oral, EVERY 6 HOURS SCHEDULED, First dose on Mon03/29/11 at 1400, Until Discontinued, - Begin after ketorolac discontinued. , Routine 1400 (Given - Provider: Primitivo Patel RN)1800 (Given - Provider: Primitivo Patel RN) 0000 (Given - Provider: Pao Wayne RN)0702 (Given - Provider: Pao Wayne RN) ketorolac (TORADOL) injection 15 mg (COMPLETED)(Linked Group 1) 15 mg, Intravenous, EVERY 8 HOURS SCHEDULED, 3 doses, First dose on Mon03/28/11 at 1645, Last dose on Mon03/29/11 at 0600, Routine 1645 (Given - Provider: Maria E Wynne RN)2200 (Given - Provider: Sonja Martinez RN) 0600 (Given - Provider: Dennis Wilkerson RN) methylphenidate (METADATE ER) CR tablet 20 mg (CANCELED) 20 mg, Oral, EVERY MORNING, First dose on Mon03/29/11 at 0700, Until Discontinued, Routine 0700 (Given by Other - Provider: Primitivo Patel RN - Comment: NATALIYA Wlikerson) 0700 (Not Given - Provider: Pao Wayne [...] Discontinued, Routine 1999 (Given - Provider: Sonja Martinez RN) 09 (Given - Provider: Primitivo Patel RN) 0825 (Given - Provider: Primitivo Patel RN) simvastatin (ZOCOR) tablet 20 mg (CANCELED) 20 mg, Oral, NIGHTLY, First dose on Mon03/28/11 at 2100, Until Discontinued 2099 (Given - Provider: Sonja Martinez RN) 2023 (Given - Provider: Pao Wayne RN) sodium chloride 0.9 % flush 5 mL (CANCELED) 5 mL, Intravenous, EVERY 12 HOURS, First dose on Mon03/28/11 at 1915, Until Discontinued 1914 (Not Given - Provider: Sonja Martinez RN - Reason: Order parameters not met) 0715 (Given - Provider: Primitivo Patel, RN)1901 (Given - Provider: Primitivo Patel, RN) 0715 (Given - Provider: Pao Wayne, NATALIYA) traZODone (DESYREL) tablet 50 mg (CANCELED) 50 mg, Oral, NIGHTLY, First dose on Mon03/28/11 at 2100, Until Discontinued, Routine 2100 (Given - Provider: Sonja Martinez, RN) 2024 (Given - Provider: Pao Wayne, NATALIYA) Continuous Medication Order 03/28/2011 03/29/2011 03/30/2011 lactated ringers infusion 1,000 mL (CANCELED) 1,000 mL, at 100 mL/hr, Intravenous, CONTINUOUS, Starting on Mon03/28/11 at 1645, Until Mon03/29/11 at 2035 1645 (New Bag - Provider: Maria E Wynne RN) PRN Medication Order 03/28/2011 03/29/2011 03/30/2011 HYDROmorphone (DILAUDID) tablet 2-4 mg 2-4 mg, Oral, EVERY 4 HOURS PRN, Starting on Mon03/28/11 at 2202, Until Mon03/30/11 at 1322, Pain, Routine 0030 (Given - Provider: Dennis Wilkerson RN)0423 (Given - Provider: Dennis Wilkerson RN)1316 (Given - Provider: Autumn Farah RN)1834 (Given - Provider: Primitivo Patel, NATALIYA) 0705 (Given - Provider: Pao Wayne, NATALIYA) HYDROmorphone (PF) (DILAUDID) 2 mg/mL injection 0.2 mg (CANCELED) 0.2 mg, Intravenous, EVERY 2 HOURS PRN, 2 doses, Starting on Mon03/28/11 at 1856, Until Mon03/30/11 at 1322, Pain, severe pain, Routine 2021 (Given - Provider: Sonja Martinez, NATALIYA) HYDROmorphone (PF) (DILAUDID) 2 mg/mL injection 0.2-0.4 [...] Wynne RN)1627 (Given - Provider: Maria E Wynne RN)1644 (Given - Provider: Maria E Wynne [...] Consider prochlorperazine if ineffective., PACU Recovery, Routine 164 (Given - Provider: Maria E Wynne RN) pneumococcal (PNEUMOVAX-23 (PPSV23)) vaccine inejction 0.5 mL (COMPLETED) 0.5 mL, Intramuscular, PRIOR TO DISCHARGE, 1 dose, Starting on Mon03/29/11 at 0913, Until Mon03/29/11 at 1834, Per Protocol, Hold for fever greater than 38.9C, Routine 183 (Given - Provider: Primitivo Patel RN) vasopressin [...] Routine documented in this encounter Care Teams Principal Clerk Relationship Specialty Start Date End Date Gina Rodgers MD HOSPITALIST SERVICES [address] [place] [address] [place] [address] PCP - General 01/18/11 01/27/14 documented as of this encounter
--- OUTSIDE RECORDS SUMMARY | 2024-01-10 02:04 | XMS_ITS | Encounter Summary ---
Author Organization [facility] [place] [address] Care Team Providers Care Caddie Supervisor Name Role Phone Gina Morales MD Primary Care Provider [phone] Reason for Visit * Reason Onset Date Comments Post Procedure Call 03/30/2011 Encounter Details Date Type Department Care Team (Late st Contact Info) Description 03/30/2011 Telephone Obstetric[place] [phone] Lela Jaramillo RN Post Procedure Call Social History Tobacco Use Types Packs/Day Years [...] Telephone Encounter - Lela Jaramillo RN - 03/31/2011 8:27 AM EDT DIVISION OF FEMALE PELVIC MEDICINE AND RECONSTRUCTIVE SURGERY POST-OP TELEPHONE UPDATE Date of Surgery: 03/28/11 HYSTERECTOMY, VAGINAL, <250 GRAMS COLPOPEXY, VAGINAL, INTRAPERITONEAL APPROACH URETHRAL SUSPENSION, SLING\FASCIA OR SYNTHETIC COLPORRHAPHY, POST RECTOCELE WITH OR W\O PERINEORRHAPHY Overall well-being: I am doing better today, I did not hear my phone yesterday Pain?: 10 Pain medication working(Y/N)?: Using dilaudid with relief Location of pain: Vaginal pressure Bladder function: voiding without difficulty Bowel function: No BM but passing flatus Ambulating: Yes Tolerating solids / liquids: well-tolerated Dressings: none Incisions: Internal, 2 inc in groin area on both sides with dermabond Vaginal bleeding: spotting Fever: none Instructions: We reviewed phone contacts. The patient will call triage at during daytime hours or during the evening or weekends and ask for the independent contractor electronic data processing auditor if she is having problems. LELA JARAMILLO RN Nurse coordinator of Female Pelvic Medicine and Reconstructive Surgery documented in this encounter Plan of Treatment Not on file documented as of this encounter Visit Diagnoses Not on filedocumented in this encounter Care Teams Caddie Supervisor Relationship Specialty Start Date End Date Gina Morales MD HOSPITALIST SERVICES [address] [place] [address] [place] [address] PCP - General 01/18/11 01/27/14 documented as of this encounter
--- OUTSIDE RECORDS SUMMARY | 2024-01-10 02:04 | XMS_ITS | Encounter Summary ---
Author Organization [facility] [place] [address] Care Team Providers Care Grant Writer Name Role Phone Gina Morales MD Primary Care Provider [phone] Encounter Details Date Type Department Care Team (Late st Contact Info) Description 03/28/2011 12:39 PM EDT Anesthesia Event [place] [id number] Jerman Huertas MD [facility] [address] [place] [address] Skinny Sims MD [facility] [place] [address] Anesthesia Record Procedure Summary Procedure Name Responsible Anesthesiologist Anesthesia Start Time Anesthesia Stop Time HYSTERECTOMY, VAGINAL, <250 GRAMS (WRVU 14.15) (Vagina ) Jerman Huertas MD 03/28/11 1239 03/28/11 1604 Events Date Time Event Comment 03/28/2011 1239 Start 1604 Stop Meds * Agents No agents on file. * Blood No blood administrations on file. Lines, Drains, and Airways Type Details Placement Removal Urethral Catheter 03/28/11; indwelling double lumen catheter; latex; 16; 1 (by Dr Gay); 03/29/11; 92903/28/11 0000 by Lurdes Valle RN 03/29/11929 by Amanda, Primitivo L, RN (RETIRED) Peripheral IV Line - Single Lumen 03/28/11; 1216; 03/30/11; 1013 03/28/11 1216 by Gina Solares RN 03/30/11 1013 by Primitivo Patel RN documented in this encounter Social History Tobacco Use Types Packs/Day Years Used Date Smoking Tobacco: Never Smokeless Tobacco: Never Alcohol Use Standard Drinks/Week Comments No 0 (1 standard drink = 0.6 oz pur e alcohol) , 2000 Sex and Gender Information Value Date Recorded Sex Assigned at Not on file Gender Identity Not on file Sexual Orientation Not on file documented as of this encounter OR Notes * Anesthesia Postprocedure Evaluation - Skinny Sims MD - 03/29/2011 6:03 PM EDT Patient: Shobha Ramírez Procedure(s) Performed: HYSTERECTOMY, VAGINAL, <250 GRAMS - Also: 02479: Intraperitoneal colpopexy 74949: Anterior / posterior colporrhaphy 58915: midurethral sling Full bladder cough stress test at preop; COLPOPEXY, VAGINAL, INTRAPERITONEAL APPROACH; URETHRAL SUSPENSION, SLING\FASCIA OR SYNTHETIC; COLPORRHAPHY, POST RECTOCELE WITH OR W\O PERINEORRHAPHY Patient location: [facility] Surgical Floor Post-op pain: Adequate analgesia Post-op nausea: no nausea or vomiting Last Vitals: Filed Vitals: 03/29/11 1503 BP: 100/59 Pulse: 78 Temp: 36.7 ??C (98.1 ??F) Resp: 18 Post-op cardiovascular and respiratory status: is at baseline Level of consciousness: awake, alert and oriented Complications: no apparent complications and tolerated the procedure well Fluid Status: normal * Anesthesia Preprocedure Evaluation - Skinny Sims MD - 03/28/2011 7:22 AM EDT Images from the original note were not included. Anesthesia Evaluation Patient summary reviewed No hx of anesthetic complications Airway Mallampati: I TM distance: >3 FB Neck ROM: full Dental Pulmonary (-) COPD and asthma Cardiovascular Exercise tolerance: poor (-) hypertension, past NH, CAD, CHF and orthopnea Neuro/Psych (+) psychiatric history GI/Hepatic/Renal (+) GERD, (-) PUD, hepatitis, liver disease and renal disease Endo/Other (-) Type I DM, Type II DM, hypothyroidism, hyperthyroidism and clotting problem Abdominal Anesthesia Plan ASA 2 General with intravenous induction 51yo 106kg lady with incontinence resulting from uterine prolapse and post menopausal bleeding presents for hysterectomy Other issues include: GERD, HLD, deconditioning, remote hx etoh abuse, Bipolar disorder, learning disorder. Multiple previous surgeries without apparent incident elsewhere BTL, Knee scopes, Carpal tunnels, Tonsils, documented in this encounter Plan of Treatment Not on file documented as of this encounter Visit Diagnoses Not on filedocumented in this encounter Care Teams Grant Writer Relationship Specialty Start Date End Date Gina Morales MD [facility] [address] [place] [address] [place] [address] PCP - General 01/18/11 01/27/14 documented as of this encounter
== END 2024-01-10 02:06 ==
LOC: DI 01:46
PROVIDERS: PCP Physician Assistant Medical; Visit Provider Physician Assistant Medical
DX: M51.36 Other intervertebral disc degeneration, lumbar region (principal)
CPT/HCPCS: 72110

== ENCOUNTER 2024-02-07 03:39 | Outpatient (CLI) | payer MEDICAID, SELFPAY ==
[2024-02-07 13:24] LABS: Absolute Basophil Count 0.02 10^3/uL (0.0-0.2); Absolute Eosinophil Count 0.14 10^3/uL (0.0-0.7); Absolute Lymphocyte Count 1.51 10^3/uL (1.2-3.4); Absolute Monocyte Count 0.45 10^3/uL (0.1-0.8); Absolute Neutrophil Count 2.42 10^3/uL (1.2-6.7); Basophils % 0.4 %; Eosinophils % 3.1 %; Lymphocytes % 33.3 %; MCH 29.1 pg (27.0-33.0); MCHC 34.2 % (32.0-36.0); MCV 85 fL (80-95); Monocytes % 9.9 %; Neutrophils % 53.3 %; Platelet Count 249 10^3/uL (130-400); RBC 4.46 10^6/uL (3.93-5.22); RDW 12.8 % (11.7-14.6); RDW-SD 39.6 fL; WBC 4.54 10^3/uL (4.4-10.8)
[2024-02-07 13:53] LABS: ALT 28 U/L (14-59); AST 22 U/L (15-37); Albumin 3.7 g/dL (3.4-5.0); Alkaline Phosphatase 97 U/L (46-116); Anion Gap 9.3 mmol/L (3-11); BUN 12 mg/dL (7-18); Bilirubin, Total 0.73 mg/dL (0.2-1.0); CO2 25.7 mmol/L (21.0-32.0); CREATININE 0.7 mg/dL (0.55-1.02); Calcium 9.1 mg/dL (8.5-10.1); Chloride 100 mmol/L (98-107); Estimated GFR 97.72 (mL/min/1.73m2); Glucose 104 mg/dL (74-106); Potassium 4.1 mmol/L (3.5-5.1); Sodium 135 mmol/L (136-145)
[2024-02-08 09:43] LABS: Lyme Ab w Rflx to Lyme Confirm Negative (Negative)
[2024-02-10 00:49] LABS: Anaplasma phagocytophilum Negative (Negative); B. miyamotoi PCR Negative (Negative); Babesia divergens/MO-1 Negative (Negative); Babesia duncani Negative (Negative); Babesia microti Negative (Negative); Ehrlichia chaffeensis Negative (Negative); Ehrlichia ewingii/canis Negative (Negative); Ehrlichia muris eauclairensis Negative (Negative)
== END 2024-02-07 03:40 | disposition home or self-care (01) ==
LOC: LBO 03:39
PROVIDERS: PCP Physician Assistant Medical; Visit Provider Physician Assistant Medical
DX: M79.604 Pain in right leg (principal); M79.605 Pain in left leg
CPT/HCPCS: 36415; 80053; 87798; 85025; 86618

== ENCOUNTER 2024-02-08 02:17 | Outpatient (CLI) | payer MEDICAID, SELFPAY ==
--- NOTE | 2024-02-08 | DI.US_ITS ---
Exam(s) US EXTREMITY VENOUS BI EXAM: US EXTREMITY VENOUS BI CLINICAL HISTORY: PAIN RT LEG M79.604 PAIN LT LEG M79.605. TECHNIQUE: Bilateral lower extremity venous ultrasound performed using grayscale, color-flow, and sp ectral Doppler analysis. COMPARISON: No exams were available for comparison FINDINGS: The bilateral common femoral, femoral and popliteal veins demonstrate normal compressibility, augment ation, and color Doppler. The posterior tibial veins and peroneal veins are patent. No evidence of B dylan's cyst. IMPRESSION: Right: Negative for DVT Left: Negative for DVT DATA REPOSITORY:
== END 2024-02-08 02:37 ==
LOC: DI 02:17
PROVIDERS: PCP Physician Assistant Medical; Visit Provider Physician Assistant Medical
DX: M79.604 Pain in right leg (principal); M79.605 Pain in left leg
CPT/HCPCS: 93970

== ENCOUNTER 2024-03-12 15:00 | Outpatient (REF) | payer MEDICAID, SELFPAY ==
[2024-03-12 21:15] LABS: Calculated LDL 163 mg/dL (<100); Cholesterol 257 mg/dL (<200); HDL Cholesterol 82 mg/dL (40-60); Triglyceride 63 mg/dL (<150); Vitamin D 25 Total 57.2 ng/mL (30-100)
== END 2024-03-12 15:01 | disposition home or self-care (01) ==
LOC: NCHCN 15:00
PROVIDERS: PCP Physician Assistant Medical; Visit Provider Physician Assistant Medical
DX: F32.9 Major depressive disorder, single episode, unspecified (principal); R73.03 Prediabetes
CPT/HCPCS: 80061; 82306

== ENCOUNTER 2024-03-20 02:20 | Outpatient (CLI) | payer MEDICAID, SELFPAY ==
--- NOTE | 2024-03-20 | DI.MAMMO_ITS ---
Exam(s) MAMMO SCREENING EXAM: MAMMO SCREENING CLINICAL HISTORY: SCREENING MAMMO Z12.31. TECHNIQUE: Bilateral full field digital CC and MLO mammographic images were obtained with 3D tomosyn thesis and utilizing computer aided detection (CAD). COMPARISON: Prior mammograms were reviewed. FINDINGS: There has been no significant change in the appearance and distribution of the fibroglandular tissue. Reviewed described finding left breast is actually less evident on the present study, further evidenc e that it was benign. Asymmetric tissue in both breasts is unchanged. There are no new spiculated masses nor malignant appearing microcalcification groups. There is no significant architectural distortion nor skin thickening-retraction. IMPRESSION: Benign appearing findings. No radiographic evidence of malignancy. BI-RADS Category 2 - Benign Findings Breast Density - Category B - Scattered areas of fibroglandular density Breast density Category C or D implies that the patient has dense breast tissue. Dense breast tissue can make it harder to find cancer on a mammogram. Dense breast tissue is also associated with an incr eased risk of breast cancer. This information about the result of the mammogram report was provided to the patient to raise their awareness. Use this report when you speak with the patient about their risks for breast cancer, which includes their family history. At that time, you may recommend additional screening tests (Ultrasoun d or MRI) as these tests may add significant information. A negative radiographic report should not delay biopsy if a dominant or clinically suspicious mass is present. Up to ten percent of cancers are not identified on mammography. A negative report may reinforce clinical impression. Adenosis and dense breasts may obscure an underlying neoplasm. False positive reports average 6 to 10%. Patient will receive a letter notifying them of these results.
== END 2024-03-20 02:40 ==
PROVIDERS: PCP Physician Assistant Medical; Visit Provider Physician Assistant Medical
DX: Z12.31 Encounter for screening mammogram for malignant neoplasm of breast (principal)
CPT/HCPCS: 77063; 77067

== ENCOUNTER 2024-05-20 01:38 | Outpatient (CLI) | payer MEDICAID, SELFPAY ==
--- NOTE | 2024-05-20 14:04 | DI.RAD_ITS ---
Exam(s) XR CERVICAL SPINE COMP 4-5V EXAM: XR CERVICAL SPINE COMP 4-5V CLINICAL HISTORY: Cervicalgia, M54.2. TECHNIQUE: 2D digital imaging was performed. Five views were performed. COMPARISON: CR XR cervical spine comp 4-5V from 10/29/2018 FINDINGS: BONES: No fracture or destructive lesion. Vertebral bodies are unremarkable. There are prominent fa cet degenerative changes which causes bilateral neural foraminal narrowing, greater on the right at C 3 4 and C4-5. DISKS: Mild narrowing of the C4-5 disc space. Slight retrolisthesis at this level secondary to facet joint degenerative changes. The remaining intervertebral disc spaces are maintained. ALIGNMENT: Cervical spinal alignment is within normal limits. The odontoid and atlantoaxial articulat ions are normal. SOFT TISSUE: Normal. The lung apices are clear. IMPRESSION: Bilateral neural narrowing at C3-4 and C4-5, right greater than left secondary to prominent facet navdeep nt encroachment. DATA REPOSITORY: RADIATION DOSE DELIVERED:
--- NOTE | 2024-05-20 14:04 | DI.RAD_ITS ---
Exam(s) XR SHOULDER RT COMPLETE 2+V EXAM: XR SHOULDER RT COMPLETE 2+V CLINICAL HISTORY: Pain in rt shoulder, M25.511. TECHNIQUE: 2D digital imaging was performed. Five views. COMPARISON: CR XR SHOULDER LT COMPLETE 2+V from 02/22/2019 FINDINGS: BONES: No acute fracture is present. No bony destructive lesion is seen. JOINTS: No dislocation present. During at AC joint and glenoid. The glenohumeral humeral joint space is maintained. SOFT TISSUE: Normal. IMPRESSION: Degenerative changes of the AC joint and glenohumeral joint. DATA REPOSITORY: RADIATION DOSE DELIVERED:
== END 2024-05-20 01:58 ==
LOC: DI 01:38
PROVIDERS: PCP Physician Assistant Medical; Visit Provider Physician Assistant Medical
DX: M19.011 Primary osteoarthritis, right shoulder (principal); M48.02 Spinal stenosis, cervical region
CPT/HCPCS: 72050; 73030

== ENCOUNTER 2024-05-28 01:24 | Outpatient (CLI) | payer MEDICAID, SELFPAY ==
--- NOTE | 2024-05-28 07:15 | DI.CT_ITS ---
Exam(s) CT HEAD WO EXAM: CT HEAD WO CLINICAL HISTORY: memory changes,? stroke, mass,MEMORY DEFICIT,R41.3. TECHNIQUE: Imaging Protocol: Axial computed tomography images with coronal and sagittal reformatted images were created and reviewed COMPARISON: CT HEAD WITH/WITHOUT CONTRAST from 02/11/2016 FINDINGS: There are no skull fractures. There is no fluid in the visualized paranasal sinuses. There is no evidence of intracranial hemorrhage, mass effect, or shift of midline structures. There are no extra-axial fluid collections. The ventricles are not enlarged or shifted and there is no blo od within the ventricular system nor within the basal cisterns. No significant atrophy. IMPRESSION: No acute intracranial findings on this noninfused CT scan of the brain. RADIATION DOSE DELIVERED: 862.74mGy.cm Total DLP DATA REPOSITORY: All CT scans at this facility are submitted to the National Radiology Data Registry (NRDR) Dose Index Registry (DIR) with the [employer] ([employer]). RADIATION OPTIMIZATION: All CT scans at this facility use at least one of these dose optimization te chniques: automated exposure control; mA and/or kV adjustment per patient size (includes targeted exa ms where dose is matched to clinical indication); or iterative reconstruction.
== END 2024-05-28 01:44 ==
PROVIDERS: PCP Physician Assistant Medical; Visit Provider Nurse Practitioner Adult Health
DX: R41.3 Other amnesia (principal)
CPT/HCPCS: 70450

== ENCOUNTER 2024-07-25 02:04 | Outpatient (CLI) | payer MEDICAID, SELFPAY ==
--- OUTSIDE RECORDS SUMMARY | 2024-07-04 00:32 | XMS_ITS | Data Portability ---
Author Organization ID - [facility] [place] [address] Assessment Encounter Date Assessment Date Assessment LastModified by Organization Details LastModified Time 11/14/2023 11/14/2023 06/11/24 - LATE ENTRY; DOCUMENTATION INCOMPLETE - AYAZ deleon Not available 06/11/2024 13:06:40 Plan of Treatment Reminders Order Date Submit Date Provider Last Modified By Organization Details Last Modified Time Details Appointments Follow Up 30 2024 11:00A Charity FARRIS Not available Not available Not available Lab hemoglobi n A1C, fingersti ck [email or web address], [address] [place] [address], [id number], 01/01/2024 12:49:23 CBC w/ auto diff 2023 024 [facility] (Registration ), [address] [place] [address] [place], [address], 02/07/2024 13:26:51 CMP, serum or plasma 2023 024 [facility] (Registration ), [address] [place] [address] [place], [id number], 02/07/2024 14:01:04 tick-born e disease panel 2023 024 [facility] (Registration ), [address] [place] [address] [place], [address], 02/08/2024 14:36:02 lipid panel, serum [address] [facility] (Registration ), [address] [place] [address] [place], [address], 03/13/2024 12:48:14 vitamin D, 25-hydrox y, total, serum 2023 [facility] (Registration ), [address] [place] [address] [place], [address], 03/12/2024 21:17:56 Referral physical therapist referral [address] [facility], [address] [place] [address] [place] [address], [address], 04/23/2024 15:08:36 Procedures None recorded. Surgeries None recorded. Imaging XR, lumbar spine 2023 [facility] (Radiology), [address] [place] [address] [place], [address], 01/10/2024 13:55:41 US, duplex, venous, lower extremity 2023 [facility] (Radiology), [address] [place] [address] [place], [address], 02/08/2024 11:10:48 MRI, brain, w/o contrast [address] [facility], [address] [place] [address], [address], 03/13/2024 12:55:11 MAMMO, screening , digital, bilateral - LAST 12/27/22[address] (Radiology), [address] [place] [address] [place], [address], 03/20/2024 18:35:05 XR, cervical spine 2023 024 [email or web address] (Radiology), [address] [place], [address], 05/24/2024 18:02:34 XR, shoulder 2023 024 [email or web address] (Radiology), [address] [place], [address], 05/24/2024 18:02:43 Medication Orders Nasacort Allergy 55 mcg nasal spray aerosol 2023 [email or web address], [address] [place] [address], [address], 11/14/2023 14:57:25 sertralin e 25 mg tablet 2023 024 [facility], [address] [place] [address], [address], 01/08/2024 16:15:40 ondansetr on HCl 4 mg tablet 2023 024 [place] [address] [facility], [address] [place] [address], [address], 01/09/2024 13:46:06 Ativan 1 mg tablet 2023 024 [facility], [address] [place] [address], [address], 03/12/2024 16:08:05 Celebrex 400 mg capsule 2023 024 [facility], [address] [place] [address], [address], 03/12/2024 16:07:57 Nasacort Allergy 55 mcg nasal spray aerosol 2023 024 [facility], [address] [place] [address], [address], 03/12/2024 16:08:00 clonidine HCl 0.1 mg tablet 2023 024 [facility], [address] [place], [address], 03/12/2024 16:07:56 cyclobenz aprine 10 mg tablet 2023 024 [facility], [address] [place], [address], 05/14/2024 09:46:18 clonidine HCl 0.1 mg tablet 2023 024 [facility], [address] [place], [address], 05/14/2024 09:57:26 Patient TargetsNo targets recorded. Patient Instructions Encounter Date Encounter Id Patient Instructions Last Modified By Organization Details Last Modified Time 02/02/2024 [id number] 1. We attempted to obtain blood today but were unsuccessful. We have placed orders for it to be done at the outpatient lab on Monday. You can walk-in there or schedule to have an appointment done. Once these labs have resulted we will communicate them to you and discuss further management. 2. I have also ordered for ultrasound of both of your legs however the imaging department will not be able to call you till Monday to schedule this. 3. If you have any significant sudden worsening between now and return of results please seek reevaluation as needed. [email or web address] Not available 02/02/2024 18:43:17 Reason for Referral Physical Therapist Referral for Chronic low back pain Referring Physician: Shashi Farris, Family Medicine, Encounter Date: 03/12/2024 Results Created Date Observation Date Name Description Value Unit Range Abnormal Flag Note LastModifiedBy Organization Detail LastModifiedTime 01/01/2001/01/2024 hemog lobin A1C, finge rstic k hemoglobin A1C 5.4 % <5.7 Not Available [address], [address], 01/01/2024 10:22:34 09/11/20 24 02/07/2024 COMPL ETE BLOOD COUNT W/DIF F WBC 4.54 10_3/ uL 4.4-10 .8 normal Not Available [address] [place], [address] 02/07/2024 13:26:51 02/07/20 24 02/07/2024 COMPL ETE BLOOD COUNT W/DIF F RBC 4.46 10_6/ uL 3.93-5 .22 normal Not Available [address] [place], [address] 02/07/2024 13:26:51 02/07/20 24 02/07/2024 COMPL ETE BLOOD COUNT W/DIF F HGB 13.0 g/dL 11.2-1 5.7 normal Not Available [address] [place], [address] 02/07/2024 13:26:51 02/07/20 24 02/07/2024 COMPL ETE BLOOD COUNT W/DIF F HCT 38.0 % 36.0-4 6.0 normal Not Available [address] [place], [address] 02/07/2024 13:26:51 02/07/20 24 02/07/2024 COMPL ETE BLOOD COUNT W/DIF F MCV 85 fL 80-95 normal Not Available [address] [place], [address] 02/07/2024 13:26:51 02/07/20 24 02/07/2024 COMPL ETE BLOOD COUNT W/DIF F MCH 29.1 pg 27.0-3 3.0 normal Not Available [address] [place], [address] 02/07/2024 13:26:51 02/07/20 24 02/07/2024 COMPL ETE BLOOD COUNT W/DIF F MCHC 34.2 % 32.0-3 6.0 normal Not Available [address] [place], [address] 02/07/2024 13:26:51 02/07/20 24 02/07/2024 COMPL ETE BLOOD COUNT W/DIF F RDW 12.8 % 11.7-1 4.6 normal Not Available [address] [place], [address] 02/07/2024 13:26:51 02/07/20 24 02/07/2024 COMPL ETE BLOOD COUNT W/DIF F platelet count 249 10_3/ uL 130-40 0 normal Not Available [address] [place], [address] 02/07/2024 13:26:51 02/07/20 24 02/07/2024 COMPL ETE BLOOD COUNT W/DIF F MPV 9.0 fL 8.0-11 .0 normal Not Available [address] [place], [address] 02/07/2024 13:26:51 02/07/20 24 02/07/2024 COMPL ETE BLOOD COUNT W/DIF F neutrophils % 53.3 % Not Available [address] [place], [address] 02/07/2024 13:26:51 02/07/20 24 02/07/2024 COMPL ETE BLOOD COUNT W/DIF F lymphocytes % 33.3 % Not Available [address] [place], [address] 02/07/2024 13:26:51 02/07/20 24 02/07/2024 COMPL ETE BLOOD COUNT W/DIF F monocytes % 9.9 % Not Available [address] [place], [address] 02/07/2024 13:26:51 02/07/20 24 02/07/2024 COMPL ETE BLOOD COUNT W/DIF F eosinophils % 3.1 % Not Available [address] [place], [address] 02/07/2024 13:26:51 02/07/20 24 02/07/2024 COMPL ETE BLOOD COUNT W/DIF F basophils % 0.4 % Not Available [address] [place], [address] 02/07/2024 13:26:51 02/07/20 24 02/07/2024 COMPL ETE BLOOD COUNT W/DIF F immature grans % 0.0 % Not Available Yecenia kwong [address] [place], [address] 02/07/2024 13:26:51 02/07/20 24 02/07/2024 COMPL ETE BLOOD COUNT W/DIF F nucleated RBC 0.0 % 0.0-0. 3 normal Not Available [address] [place], [address] 02/07/2024 13:26:51 02/07/20 24 02/07/2024 COMPL ETE BLOOD COUNT W/DIF F absolute neutrophil count 2.42 10_3/ uL 1.2-6. 7 normal Not Available [address] [place], [address] 02/07/2024 13:26:51 02/07/20 24 02/07/2024 COMPL ETE BLOOD COUNT W/DIF F absolute lymphocyte count 1.51 10_3/ uL 1.2-3. 4 normal Not Available [address] [place], [address] 02/07/2024 13:26:51 02/07/20 24 02/07/2024 COMPL ETE BLOOD COUNT W/DIF F absolute monocyte count 0.45 10_3/ uL 0.1-0. 8 normal Not Available [address] [place], [address] 02/07/2024 13:26:51 02/07/20 24 02/07/2024 COMPL ETE BLOOD COUNT W/DIF F absolute eosinophil count 0.14 10_3/ uL 0.0-0. 7 normal Not Available [address] [place], [address] 02/07/2024 13:26:51 02/07/20 24 02/07/2024 COMPL ETE BLOOD COUNT W/DIF F absolute basophil count 0.02 10_3/ uL 0.0-0. 2 normal Not Available [address] [place], [address] 02/07/2024 13:26:51 02/07/20 24 02/07/2024 COMPR EHENS FRANKLIN METAB OLIC PANEL calcium 9.1 mg/dL 8.5-10 .1 normal Not Available [address] [place], [address] 02/07/2024 14:01:04 02/07/20 24 02/07/2024 COMPR EHENS FRANKLIN METAB OLIC PANEL glucose 104 mg/dL 74-106 normal Not Available Jessica phillip [address] [place], [address] 02/07/2024 14:01:04 02/07/20 24 02/07/2024 COMPR EHENS FRANKLIN METAB OLIC PANEL BUN 12 mg/dL 7-18 normal Not Available Jessica phillip [address] [place], [address] 02/07/2024 14:01:04 02/07/20 24 02/07/2024 COMPR EHENS FRANKLIN METAB OLIC PANEL creatinine 0.7 mg/dL 0.55-1 .02 normal Not Available [address] [place], [address] 02/07/2024 14:01:04 02/07/20 24 02/07/2024 COMPR EHENS FRANKLIN METAB OLIC PANEL estimated GFR 97.72 mL/min /1.73m 2 The eGFR is calcu lated from a serum creat inine using the CKD-E PI 2020 equat ion. Other varia bles requi red for the equat ion are gende r and age; this equat ion does not inclu de a race coeff icien t. This equat ion has simil ar overa ll perfo rmanc e to previ ous equat ions excep t value s may diffe r, in parti cular , in patie nts with highe r value s of eGFR and young er-ag ed adult s. Not Available [address] [place], [address] 02/07/2024 14:01:04 02/07/20 24 02/07/2024 COMPR EHENS FRANKLIN METAB OLIC PANEL total protein 7.0 g/dL 6.4-8. 2 normal Not Available [address] [place], [address] 02/07/2024 14:01:04 02/07/20 24 02/07/2024 COMPR EHENS FRANKLIN METAB OLIC PANEL albumin 3.7 g/dL 3.4-5. 0 normal Not Available [address] [place], [address] 02/07/2024 14:01:04 02/07/20 24 02/07/2024 COMPR EHENS FRANKLIN METAB OLIC PANEL bilirubin, total 0.73 mg/dL 0.2-1. 0 normal Not Available [address] [place], [address] 02/07/2024 14:01:04 02/07/20 24 02/07/2024 COMPR EHENS FRANKLIN METAB OLIC PANEL alk phos 97 U/L 46-116 normal Not Available [address] [place], [address] 02/07/2024 14:01:04 02/07/20 24 02/07/2024 COMPR EHENS FRANKLIN METAB OLIC PANEL sodium 135 mmol/ L 136-14 5 low Not Available [address] [place], [address] 02/07/2024 14:01:04 02/07/20 24 02/07/2024 COMPR EHENS FRANKLIN METAB OLIC PANEL potassium 4.1 mmol/ L 3.5-5. 1 normal Not Available [address] [place], [address] 02/07/2024 14:01:04 02/07/20 24 02/07/2024 COMPR EHENS FRANKLIN METAB OLIC PANEL chloride 100 mmol/ L 98-107 normal Not Available [address] [place], [address] 02/07/2024 14:01:04 02/07/20 24 02/07/2024 COMPR EHENS FRANKLIN METAB OLIC PANEL CO2 25.7 mmol/ L 21.0-3 2.0 normal Not Available [address] [place], [address] 02/07/2024 14:01:04 02/07/20 24 02/07/2024 COMPR EHENS FRANKLIN METAB OLIC PANEL anion gap 9.3 mmol/ L 3-11 normal Not Available [address] [place], [address] 02/07/2024 14:01:04 02/07/20 24 02/07/2024 COMPR EHENS FRANKLIN METAB OLIC PANEL AST 22 U/L 15-37 normal Not Available Jessica phillip [address] [place], [address] 02/07/2024 14:01:04 02/07/20 24 02/07/2024 COMPR EHENS FRANKLIN METAB OLIC PANEL ALT 28 U/L 14-59 normal Not Available Jessica phillip [address] [place], [address] 02/07/2024 14:01:04 02/07/20 24 02/08/2024 LYME AB W RFLX TO LYME CONFI RM lyme Ab W rflx to lyme confirm Negati ve negati ve Test perfo rmed or refer red by [facility] [address] [place] [place] [address] Not Available [facility] (Registration ) [address] [place] [address] [place], [address], 02/08/2024 14:11:41 02/07/20 24 02/08/2024 LYME AB W RFLX TO LYME CONFI RM lyme Ab W rflx to lyme confirm Negati ve negati ve Test perfo rmed or refer red by [facility] [address] [place] [place] [address] Not Available [facility] (Registration ) [address] [place] [address] [place], [address], 02/12/2024 09:00:27 02/07/20 24 02/10/2024 TICK- BORNE DNA PANEL , PCR, B anaplasma phagocytophi lum Negati ve negati ve Not Available [facility] (Registration ) [address] [place] [address] [place], [address], 02/12/2024 09:00:28 02/07/20 24 02/10/2024 TICK- BORNE DNA PANEL , PCR, B ehrlichia chaffeensis Negati ve negati ve Not Available [facility] (Registration ) [address] [place] [address] [place], [address], 02/12/2024 09:00:28 02/07/2002/10/2024 TICK- BORNE DNA PANEL , PCR, B ehrlichia ewingii/cani s Negati ve negati ve Not Available [facility] (Registration ) [address] [place] [address] [place], [address], 02/12/2024 09:00:28 02/07/20 24 02/10/2024 TICK- BORNE DNA PANEL , PCR, B ehrlichia muris eauclairensi s Negati ve negati ve ----- ----- ----- ----A DDITI ONAL INFOR MATIO N---- ----- ----- ----- This test was antonia gar and its perfo rmanc e jamie cteri stics deter mined by [place] [facility]athy ruiz in a xochitl r consi stent with MARV tolbert. This test has not been clear ed or appro alvin by the U.S. Food and Drug Admin istra tion. Not Available [facility] (Registration ) [address] [place] [address] [place], [address], 02/12/2024 09:00:28 02/07/2002/10/2024 TICK- BORNE DNA PANEL , PCR, B babesia microti Negati ve negati ve Not Available [facility] (Registration ) [address] [place] [address] [place], [address], 02/12/2024 09:00:28 02/07/2002/10/2024 TICK- BORNE DNA PANEL , PCR, B babesia duncani Negati ve negati ve Not Available [facility] (Registration ) [address] [place] [address] [place], [address], 02/12/2024 09:00:28 02/07/2002/10/2024 TICK- BORNE DNA PANEL , PCR, B babesia divergens/MO -1 Negati ve negati ve ----- ----- ----- ----A DDITI ONAL INFOR MATIO N---- ----- ----- ----- This test was devel oped and its perfo rmanc e jamie cteri stics deter mined by [facility] in a xochitl r consi stent with CLIA requi remen ts. This test has not been clear ed or appro alvin by the U.S. Food and Drug Admin istra tion. Not Available [facility] (Registration ) [address] [place] [address] [place], [address], 02/12/2024 09:00:28 02/07/2002/10/2024 TICK- BORNE DNA PANEL , PCR, B B. miyamotoi PCR Negati ve negati ve ----- ----- ----- ----A DDITI ONAL INFOR MATIO N---- ----- ----- ----- This test was devel oped and its perfo rmanc e jamie cteri stics [facility] consi stent with CLIA requi remen ts. This test has not been clear ed or appro alvin by the U.S. Food and Drug Admin istra tion. Test [facility]fo [facility] by: [facility] [address] , [place] [address] Lab Direc tor: Kristie Ty nn Ph.D. ; CLIA# [id number] Not Available [facility] (Registration ) [address] [place] [address] [place], [address], 02/12/2024 09:00:28 03/12/2003/12/2024 LIPID 2 cholesterol 257 mg/dL <200 high Not Available [address] [place], [address] 03/12/2024 21:17:55 03/12/2021 0303/12/2024 LIPID 2 triglyceride 63 mg/dL <150 Not Available [address] [place], [address] 03/12/2024 21:17:55 03/12/20 24 03/12/2024 LIPID 2 HDL cholesterol 82 mg/dL 40-60 Not Available Robbie latham [address] [place], [address] 03/12/2024 21:17:55 03/12/20 24 03/12/2024 LIPID 2 calculated LDL 163 mg/dL <100 high Natio nal Ame stero l Educa tion Progr am (NCEP -ATPI II) class ifica tions : Ame stero l <200 mg/dL Roel able Ame stero l 200-2 39 mg/dL Borde rline High Ame stero l >or=2 40 mg/dL High HDL <40 mg/dL Low HDL >or=6 0 mg/dL High LDL <100 mg/dL Optim al LDL 100-1 29 mg/dL Near Optim al/Ab ove Optim al LDL 130-1 59 mg/dL Borde rline High LDL 160-1 89 mg/dL High LDL >or=1 90 mg/dL Very High *The above refer ence range is for adult s 18 years or older . Not Available [address] [place], [address] 03/12/2024 21:17:55 03/12/20 24 03/12/2024 VITAM IN D 25 TOTAL vitamin D 25 total 57.2 NG/mL 30-100 normal Refer ence Guide lines : Defic ient: <10 ng/ml Insuf ficie nt: 10-30 ng/ml Suffi cient : 30-10 0 ng/ml Toxic : >100 ng/ml Not Available [address] [place], [address] 03/12/2024 21:17:56 01/10/20 24 01/10/2024 XR, lumba r spine Patien t Name: Shobha Ramírez Unit #: [id number] Loc: DI Orderi ng Provid er: Symone phillip,Lulu VALLE Accoun t #: [id number] Status : REG CLI Primar y Care Provid er: Lulu Ashby rn Date of Exa m: Sex: F Admiss ion Date: : 1959 Age: 63 Exam(s ) XR LUMBAR SPINE COMPLE TE EXAM: XR LUMBAR SPINE COMPLE TE CLINIC AL HISTOR Y: M54.50 Low back pain, unspec ified. TECHNI QUE: 2D digita l imagin g was perfor med of the lumbar spine. Five images were obtain ed. AP, latera l, right obliqu e, left obliqu e and L5-S1 spot views were obtain ed. COMPAR RADHA: CR XR lumbar spine comple te from 2018 FINDIN GS: BONES: No fractu re or destru ctive lesion . Endpla te osteop hytes are seen throug hout the lumbar spine, most marked at L2-3, L3-4 and L4-L5. Degene rative change s of the facets are seen in the lower lumbar spine. DISKS: There is disc space narrow ing and vacuum discs at L2-3, L3-4 and L4-L5. ALIGNM ENT: There is a very mild left convex curvat ure of the lumbar spine. No spondy lolysi s or spondy lolist hesis. SOFT TISSUE : Vascul ar calcif icatio ns are presen t. IMPRES EULALIO: Modera tely severe degene rative change s in the lumbar spine. DATA REPOSI TORY: RADIAT ION DOSE DELIVE RED: Ordere d By: Lulu Ashby rn CC: ------ ------ ------ ------ ------ ------ ------ ------ ------ ------ ------ ------ - Dictat ed By: Eris Wynne M.D. 1012 1012 Transc ribed By: Eris Wynne 1012 This is privil eged, confid ential inform ation intend ed only for the provid er named. Any use or distri bution by any person other than this provid er is strict ly prohib ited. If you receiv e this report in error, please notify us immedi ately at and return the origin al report to us at the addres s above. Thank- you. [email or web address] (Radiology) [address] [place], [address], 01/10/2024 13:55:41 02/08/20 24 02/08/2024 US, jennifer x, isaac s, lower extre mity Patien t Name: Shobha Ramírez Unit #: [id number] Loc: DI Clarai ng [facility] er: Vesna Waggoner Accoun t #: [id number] Status : REG CLI Primar y Care Provid er: Symone phillip,Lulu VALLE Date of Exa m: Sex: F Admiss ion Date: : 1959 Age: 64 Exam(s ) US EXTREM ITY VENOUS BI EXAM: US EXTREM ITY VENOUS BI CLINIC AL HISTOR Y: PAIN RT LEG M79.60 4 PAIN LT LEG M79.60 5. TECHNI QUE: Bilate ral lower extrem ity venous ultras ound perfor med using graysc devorah, color- flow, and spectr al Dopple r analys is. COMPAR RADHA: No exams were availa ble for compar radha FINDIN GS: The bilate ral common femora l, femora l and poplit eal veins demons trate normal compre ssibil ity, augmen tation , and color Dopple r. The karate black belt ior tibial veins and perone al veins are patent . No eviden ce of Looney' s cyst. IMPRES EULALIO: Right: Negati ve for DVT Left: Negati ve for DVT DATA REPOSI TORY: Ordere d By: Vesna Waggoner CC: ------ ------ ------ ------ ------ ------ ------ ------ ------ ------ ------ ------ - Dictat ed By: Danny Salvador 1056 1056 Transc ribed By: Elizabeth Palacios 1056 This is privil eged, confid ential inform ation intend ed only for the provid er named. Any use or distri bution by any person other than this provid er is strict ly prohib ited. If you receiv e this report in error, please notify us immedi radhaly at and return the origin al report to us at the addres s above. Thank- you. [email or web address] (Radiology) [address], [place], [address], 02/09/2024 09:32:09 02/12/20 24 01/06/2022 imagi ng/di agnos tic resul t No observ ation record ed. Not Available 02/11 01:26:28 02/12/20 24 12/27/2022 imagi ng/di agnos tic resul t No observ ation record ed. Not Available 02/11 01:27:56 02/12/20 24 06/07/2018 XR, chest No observ ation record ed. Not Available 02/11 01:27:58 02/12/20 24 12/12/2019 XR, chest No observ ation record ed. Not Available 02/11 01:27:59 02/12/20 24 10/22/2020 CT, abdom en No observ ation record ed. Not Available 02/11 01:28:00 02/12/20 24 03/14/2019 MAMMO , scree margarito No observ ation record ed. Not Available 02/11 01:28:03 02/12/20 24 05/05/2020 MAMMO , scree margarito No observ ation record ed. Not Available 02/11 01:28:04 02/12/20 24 05/06/2021 MAMMO , darío pimentel No observ ation record ed. Not Available 02/11 01:28:05 02/12/20 24 12/20/2022 MAMMO , darío richterg No observ ation record ed. Not Available 02/11 01:28:05 02/12/20 24 12/27/2022 MAMMO , darío richterg No observ ation record ed. Not Available 02/11 01:28:07 02/12/20 24 02/22/2019 XR, shoul misti No observ ation record ed. Not Available 02/11 01:28:17 02/12/20 24 06/07/2018 CT, angio gram, chest No observ ation record ed. Not Available 02/11 01:28:18 02/12/20 24 02/22/2019 NM, bone scan No observ ation record ed. Not Available 02/11 01:28:19 02/12/20 24 07/21/2021 imagi ng/di agnos tic resul t No observ ation record ed. Not Available 02/11 01:28:21 02/12/20 24 10/29/2018 imagi ng/di agnos tic resul t No observ ation record ed. Not Available 02/11 01:28:24 03/20/20 24 03/20/2024 MAMMO , darío pimentel, digit al, bilat eral Patien t Name: Shobha Ramírez Unit #: [id number] Loc: DI Orderi ng Provid er: Lulu Ashby rn Accoun t #: [id number] Status : REG CLI Primar y Care Provid er: Lulu Ashby rn Date of Exa m: Sex: F Admiss ion Date: : 1959 Age: 64 Exam(s ) MG MAMMO SCREEN ING EXAM: MG MAMMO SCREEN ING CLINIC AL HISTOR Y: SCREEN ING MAMMO Z12.31 . TECHNI QUE: Bilate ral full field digita l CC and MLO mammog raphic images were obtain ed with 3D tomosy nthesi s and utiliz ing comput er aided detect ion (CAD). COMPAR RADHA: Prior mammog laya were review ed. FINDIN GS: There has been no signif icant change in the appear ance and distri bution of the fibrog landul ar tissue . Review ed descri bed findin g left breast is actual ly less eviden t on the presen t study, furthe r eviden ce that it was benign . Asymme tric tissue in both breast s is unchan ged. There are no new spicul ated masses nor malign ant appear ing microc alcifi cation groups . There is no signif icant jose carlos ectura l distor tion nor skin thicke margarito-r etract ion. IMPRES EULALIO: Benign appear ing findin gs. No radiog raphic eviden ce of malign danny. BI-RAD S Catego ry 2 - Benign Findin gs Breast Densit y - Catego ry B - Scatte red areas of fibrog landul ar densit y Breast densit y Catego ry C or D implie s that the patien t has dense breast tissue . Dense breast tissue can make it harder to find cancer on a mammog negin. Dense breast tissue is also associ ated with an increa sed risk of breast cancer . This inform ation about the result of the mammog negin report was provid ed to the patien t to raise their awaren ess. Use this report when you speak with the patien t about their risks for breast cancer , which includ es their family histor y. At that time, you may recomm end additi onal screen ing tests (Ultra sound or MRI) as these tests may add signif icant inform ation. A negati ve radiog raphic report should not delay biopsy if a domina nt or clinic ally suspic ious mass is presen t. Up to ten percen t of cancer s are not identi fied on mammog jones. A negati ve report may reinfo rce clinic al impres eulalio. Adenos is and dense breast s may obscur e an underl kole neopla sm. False positi ve report s averag e 6 to 10%. Patien t will receiv e a letter notify ing them of these result sJuhi Ordere d By: Symone phillip,Lulu VALLE CC: ------ ------ ------ ------ ------ ------ ------ ------ ------ ------ ------ ------ - Dictat ed By: Andrea Moseley M.D. 1757 Transc ribed By: Pradip LUNDY,Danny sonido 1757 This is privil eged, confid ential inform ation intend ed only for the provid er named. Any use or distri bution by any person other than this provid er is strict ly prohib ited. If you receiv e this report in error, please notify us immedi ately at [phone] and return the origin al report to us at the addres s above. Thank- you. [email or web address] (Radiology) [address], [place], [address], 03/21/2024 07:07:10 05/20/20 24 05/20/2024 x-ray imagi ng sheeba morales Name: Shobha Ramírez Unit #: [id number] Loc: DI Orderi ng Provid er: Lulu Ashby rn Accoun t #: [id number] Status : REG CLI Primar y Care Provid er: Lulu Ashby rn Date of Exa m: Sex: F Admiss ion Date: : 1959 Age: 64 Exam(s ) XR SHOULD ER RT COMPLE TE 2+V EXAM: XR SHOULD ER RT COMPLE TE 2+V CLINIC AL HISTOR Y: Pain in rt should er, M25.51 1. TECHNI QUE: 2D digita l imagin g was perfor med. Five views. COMPAR RADHA: CR XR SHOULD ER LT COMPLE TE 2+V from 2018 FINDIN GS: BONES: No acute fractu re is presen t. No bony destru ctive lesion is seen. JOINTS : No disloc ation presen t. During at AC joint and glenoi d. The glenoh umeral bartolo l joint space is mainta ined. SOFT TISSUE : Normal . IMPRES EULALIO: Degene rative change s of the AC joint and glenoh umeral joint. DATA REPOSI TORY: RADIAT ION DOSE DELIVE RED: Ordere d By: Lulu Ashby rn CC: ------ ------ ------ ------ ------ ------ ------ ------ ------ ------ ------ ------ - Dictat ed By: Danny Salvador 141 141 Transc ribed By: Elizabeth Palacios 141 This is privil eged, confid ential inform ation intend ed only for the provid er named. Any use or distri bution by any person other than this provid er is strict ly prohib ited. If you receiv e this report in error, please notify us immedi radhaly at [phone] and return the origin al report to us at the addres s above. Thank- you. [email or web address] [address], [place], [address] 05/24/2024 18:02:22 05/20/20 24 05/20/2024 x-ray imagi ng repor t Patien t Name: Shobha Ramírez Unit #: [id number] Loc: DI Orderi ng Provid er: Lulu Ashby rn Accoun t #: [id number] Status : REG CLI Primar y Care Provid er: Lulu Ashby rn Date of Exa m: Sex: F Admiss ion Date: : 1959 Age: 64 Exam(s ) XR CERVIC AL SPINE COMP 4-5V EXAM: XR CERVIC AL SPINE COMP 4-5V CLINIC AL HISTOR Y: Cervishmael saldaña, M54.2. TECHNI QUE: 2D digita l imagin g was perfor med. Five views were perfor med. COMPAR RADHA: CR XR cervic al spine comp 4-5V from 2018 FINDIN GS: BONES: No fractu re or destru ctive lesion . Verteb ral bodies are unrema rkable . There are promin ent facet degene rative change s which causes bilate ral neural forami nal narrow ing, greate r on the right at C 3 4 and C4-5. DISKS: Mild narrow ing of the C4-5 disc space. Slight retrol isthes is at this level second zabrina to facet joint degene rative change s. The remain ing interv ertebr al disc spaces are mainta ined. ALIGNM ENT: Cervic al spinal alignm ent is within normal limits . The odonto id and atlant oaxial articu lation s are normal . SOFT TISSUE : Normal . The lung apices are clear. IMPRES EULALIO: Bilate ral neural narrow ing at C3-4 and C4-5, right greate r than left second zabrina to promin ent facet joint encroa chment . DATA REPOSI TORY: RADIAT ION DOSE DELIVE RED: Ordere d By: Symone phillip,Lulu VALLE CC: ------ ------ ------ ------ ------ ------ ------ ------ ------ ------ ------ ------ - Dictat ed By: Danny Salvador 141 141 Transc ribed By: Elizabeth Palacios 141 This is privil eged, confid ential inform ation intend ed only for the provid er named. Any use or distri bution by any person other than this provid er is strict ly prohib ited. If you receiv e this report in error, please notify us immedi ately at and return the origin al report to us at the addres s above. Thank- you. [email or web address] [address], [place], [address] 05/24/2024 18:02:22 05/28/20 24 05/28/2024 CT imagi ng repor t [place] t Name: Shobha Ramírez Unit #: [id number] Loc: DI Orderi ng Provid er: Shoaib whitney,Agnes helton Accoun t #: [id number] Status : REG CLI Primar y Care Provid er: Symone phillip,Lulu VALLE Date of Exa m: Sex: F : 1959 Age: 64 Exam(s ) a CT:CT head wo Exam(s ) CT HEAD WO EXAM: CT HEAD WO CLINIC AL HISTOR Y: memory change s,? stroke , mass,M [place] DEFICI T,R41. 3. TECHNI QUE: Imagin g Protoc ol: Axial comput ed tomogr aphy images with gambino l and sagitt al reform atted images were create d and review ed COMPAR RADHA: CT HEAD WITH/W ITHOUT CONTRA ST from 2015 FINDIN GS: There are no skull fractu res. There is no fluid in the visual ized parana siria sinuse s. There is no eviden ce of intrac ranial hemorr cliff, mass effect , or shift of midlin e struct ures. There are no extra- axial fluid collec tions. The ventri cles are not enlarg ed or shifte d and there is no blood within the ventri cular system nor within the basal cister ns. No signif icant atroph y. IMPRES EULALIO: No acute intrac ranial findin gs on this noninf used CT scan of the brain. RADIAT ION DOSE DELIVE RED: 862.74 mGy.cm Total DLP DATA REPOSI TORY: All CT scans at this facili ty are submit [place] to the Nation al Radiol ogy Data Regist ry (NRDR) Dose Index Regist ry (DIR) with the [employer] o[employer] (ACR). RADIAT ION OPTIMI ZATION : All CT scans at this facili ty use at least one of these dose optimi zation techni ques: automa [place] exposu re contro l; mA and/or kV adjust ment per patien t size (inclu tati target ed exams where dose is matche d to clinic al indica tion); or iterat franklin recons tructi on. 1231-0 008: Total DLP = 0.00 mGy-cm Ordere d By: Agnes Howell CC: ------ ------ ------ ------ ------ ------ ------ ------ ------ ------ ------ ------ ---- Dictat ed By: Andrea Moseley M.D. 910 Transc ribed By: Pradip LUNDY,Danny sonido 910 This is privil eged, confid ential inform ation intend ed only for the provid er named. Any use or distri bution by any person other than this provid er is strict ly prohib ited. If you receiv e this report in error, please notify us immedi ately at and return the origin al report to us at the addres s above. Thank- you. INTERFACE [address], [place], [address] 05/28/2024 09:26:53 Result Notes None recorded. Problems Name Problem SNOMED Code Status Onset Date Resolution Date Notes Provider Name and Address Organization Details Recorded Time Obesity 428760727 Active 2010 Problem Code: E66.9; Problem Code Type: ICD-10; Not Available [facility] 3 04:09:32 Chronic alcoholi sm in [facility] 352380281 Active 2010 Problem Code: F10.21; Problem Code Type: ICD-10; Not Available [facility] 3 04:09:32 Gastroes ophageal reflux disease without esophagi tis 008708416 Active 201011/27/19 21 - Comments only - Shashi Farris PA-C - Patient encourag ed to RS on PROTONIX 40mg QD. Problem Code: K21.9; Problem Code Type: ICD-10; Not Available [facility] 3 04:09:32 Hyperlip idemia 34929294 Active 201011/18/19 17 - Comments only - Shashi Farris PA-C - D/C from statin therapy since May due to elevated CPK. Will repeat lipid profile today as monitori ng. Problem Code: E78.5; Problem Code Type: ICD-10; Not Available [facility] 3 04:09:32 Bipolar disorder 29077986 Active 201008/10/19 23 - Comments only - Shashi Farris PA-C - Well establis hed with [facility]. To continue on current treatmen t regimen (WELLBUT RIN, VYVANSE, ATIVAN, L-METHYL FOLATE, NAC, VITAMIN D) as RXd by speciali ty service provider Problem Code: F31.9; Problem Code Type: ICD-10; Not Available [facility] 3 04:09:32 Iron deficien cy anemia 37719266 Active 2010 Problem Code: D50.9; Problem Code Type: ICD-10; Not Available [facility] 3 04:09:32 Acquired absence of cervix and uterus 430705909 Active 2011 Problem Code: Z90.710; Problem Code Type: ICD-10; Not Available [facility] 3 04:09:32 Menopaus e present 130345514 Active 201008/10/19 23 - Comments only - Shashi Farris PA-C - Will re-evalu ated patient interest in HRT with future visits. Problem Code: Z78.0; Problem Code Type: ICD-10; Not Available [facility] 3 04:09:32 Knee joint prosthes is present 88949618885 2 Active 201212/03/19 16 - Comments only - Shashi Farris PA-C - Order for annual ortho recheck initiate d in EMR. Problem Code: Z96.653; Problem Code Type: ICD-10; Not Available [facility] 3 04:09:32 Edema 919564534 Active 201411/27/19 21 - Comments only - Shashi Farris PA-C - As per patient request, will initiate process for replacem ent of compress ion stocking s via local provider . Problem Code: R60.9; Problem Code Type: ICD-10; Not Available [facility] 3 04:09:33 Irritabl e bowel syndrome characte rized by constipa tion 956434879 Active 201402/19/20 19 - Comments only - Shashi Farris PA-C - Establis hed with [facility] . To continue on PROTONIX , AMITIZA, and MIRALAX/ PERICOLA CE PRN as RXd by specialt y service provider . Problem Code: K58.1; Problem Code Type: ICD-10; Not Available [facility] 3 04:09:33 Chronic sinusiti s 54927472 Completed 201403/03/2015 02/20/20 15 - Comments only - Shashi Farris PA-C - Will treat with RXd ZITHROMA X as ZPAK and PREDNISO NE 40mg QD x 5d. Ok to suppleme nt with PROAIR and/or TESSALON PERLES as needed. Problem Code: J32.9; Problem Code Type: ICD-10; Not Available [facility] 3 04:09:33 Acute bronchit is 29667960 Completed 201403/03/2015 Problem Code: J20.9; Problem Code Type: ICD-10; Not Available [facility] 3 04:09:33 Adult health examinat ion Active 201405/14/20 19 - Comments only - Shashi Farris PA-C - STI screenin g complete d today. Patient received flu vaccine through local pharmacy earlier in season. Problem Code: Z00.00; Problem Code Type: ICD-10; Not Available [facility] 3 04:09:33 Low back pain 108397826 Active 201406/02/19 22 - Comments only - Shashi Farris PA-C - Treated with TORADOL 60mg IM today, which Shobha agrees to follow with RXd TORADOL 10mg PO Q 6h PRN (to replace IBUPROFE N). She will otherwis e continue to follow with PT for guided rehab as schedule d. Problem Code: M54.5; Problem Code Type: ICD-10; Not Available [facility] 3 04:09:33 Snoring 99589746 Active 201505/09/20 16 - Comments only - Shashi Farris PA-C - Patient to f/u as schedule d for formal sleep study via [facility]. Problem Code: R06.83; Problem Code Type: ICD-10; Not Available [facility] 3 04:09:33 Acute vaginiti s 19364140 Completed 201512/07/2015 12/03/19 16 - Comments only - Shashi Farris PA-C - Will await results of today's collecte d VPS to r/o for acute vaginal infectio n. Regardle ss of findings , however, in an effort to reduce patient reported sxs of vaginal dryness, will increase PREMARIN to 0.9mg QD as trial. Problem Code: N76.0; Problem Code Type: ICD-10; Not Available [facility] 3 04:09:33 Attentio n deficit hyperact ivity disorder 865247700 Active 201509/07/19 23 - Comments only - Shashi Farris PA-C - - MDD, ANXIETY, PTSD, ADHD Well establis hed with [facility]. Encourag ed to re-engag e with communit y support groups for socializ ation +/- advance discussi on with specialt y service provider about retrial of antidepr essant/a nxiolyti c therapie s with next schedule d f/u visit. In the interim, she will continue on current treatmen t regimen (WELLBUT RIN, VYVANSE, ATIVAN, L-METHYL FOLATE, NAC, VITAMIN D) as RXd. Problem Code: F90.9; Problem Code Type: ICD-10; Not Available [facility] 3 04:09:34 Fitting of hearing aid Completed 201611/09/2016 Problem Code: Z46.1; Problem Code Type: ICD-10; Not Available [facility] 3 04:09:34 Bilatera l hearing loss 98322249 Active 2016 Problem Code: H91.8x3; Problem Code Type: ICD-10; Not Available [facility] 3 04:09:34 Vitreous opacitie s 040878035 Completed 201602/21/2017 Problem Code: H43.399; Problem Code Type: ICD-10; Not Available [facility] 3 04:09:34 External hearing aid in situ 635413552 Completed 201605/23/2017 Problem Code: Z97.4; Problem Code Type: ICD-10; Not Available [facility] 3 04:09:34 Pain in left foot 30771671179 9107 Completed 201605/23/2017 Problem Code: M79.672; Problem Code Type: ICD-10; Not Available [facility] 3 04:09:34 Malaise 891664797 Completed 201605/23/2017 Problem Code: R53.81; Problem Code Type: ICD-10; Not Available [facility] 3 04:09:34 Fibromya lgia 869231170 Active 201602/19/20 19 - Comments only - Shashi Farris PA-C - Patient opting to hold off on return to PT and/or pursuing MRI to guide [facility] refer for the time being. She agrees to reconsid er for these more advanced treatmen t interven tions with AE this winter. Problem Code: M79.7; Problem Code Type: ICD-10; Not Available [facility] 3 04:09:35 Trochant mango bursitis of left hip 05932532661 9103 Completed 201709/20/2017 09/07/19 18 - Comments only - Shashi Farris PA-C - Will initiate refer to ortho ([facility]) for consider ation towards injectio n. In the interim, to continue on OTC TYLENOL (appropr iate dosing instruct ions reviewed ) PRN for pain. Problem Code: M70.62; Problem Code Type: ICD-10; Not Available [facility] 3 04:09:35 Generali zed enlarged lymph nodes 917329083 Completed 201709/20/2017 09/07/19 18 - Comments only - Shashi Farris PA-C - Will arrange for US imaging via [facility] at next availabl e. Problem Code: R59.1; Problem Code Type: ICD-10; Not Available [facility] 3 04:09:35 Fatigue 09735801 Completed 201701/08/2018 Problem Code: R53.83; Problem Code Type: ICD-10; Not Available [facility] 3 04:09:35 Hand pain 22409630 Completed 201701/08/2018 12/26/19 18 - Comments only - Shashi Farris PA-C - Will consider for RSing rheumato logy consult based upon results of requeste d bilatera l hand x-rays and laborato ry testing. Problem Code: M79.643; Problem Code Type: ICD-10; Not Available [facility] 3 04:09:35 Infectio n of skin and/or subcutan eous tissue 28896238 Completed 201701/08/2018 12/26/19 18 - Comments only - Shashi Farris PA-C - Patient reassure d that wound appears to be healing well. Advised to continue on AUGMENTI N as RXd by ED rizwan rendon and perform wound care (ABX OINTMENT and bandage dressing in day, open to air in PMS). To f/u with PCP vs. return to ED with complica tions. Problem Code: L08.89; Problem Code Type: ICD-10; Not Available [facility] 3 04:09:35 Abnormal findings diagnost ic imaging heart+co ronary circulat 150038306 Active 201702/19/20 19 - Comments only - Shashi Farris PA-C - As per [facility] cardi[facility] gy, due for repeat echocard iogram 12/2019 Problem Code: R93.1; Problem Code Type: ICD-10; Not Available [facility] 3 04:09:36 Dysphagi a 66073916 Completed 201702/05/2018 01/23/20 18 - Comments only - Shashi Farris PA-C - Will arrange for barium swallow at [facility] at next availabl e. In the interim, Shobha will continue on PROTONIX 40mg QD as RXd. Problem Code: R13.10; Problem Code Type: ICD-10; Not Available [facility] 3 04:09:36 Vitamin D deficien cy 94930347 Active 201701/23/20 18 - Comments only - Shashi Farris PA-C - Patient to begin on VITAMIN D 1000U QD Problem Code: E55.9; Problem Code Type: ICD-10; Not Available [facility] 3 04:09:36 Foot pain 56963274 Completed 201705/08/2018 Problem Code: M79.673; Problem Code Type: ICD-10; Not Available [facility] 3 04:09:36 Hand pain 68490937 Active 201704/24/20 18 - Comments only - Shashi Farris PA-C - Will refer to ortho ([facility]) for consider ation towards joint injectio ns. Problem Code: M79.643; Problem Code Type: ICD-10; Not Available [facility] 3 04:09:36 Cough 29770456 Completed 201807/06/2018 Problem Code: R05; Problem Code Type: ICD-10; Not Available [facility] 3 04:09:36 Left bundle branch block 36367399 Active 201805/14/20 19 - Comments only - Shashi Farris PA-C - - LBBB, VASCULAR HEART DISEASE As per [facility] cardiolo gy, due for repeat echocard iogram 12/2019 Problem Code: I44.7; Problem Code Type: ICD-10; Not Available [facility] 3 04:09:37 Acute sinusiti s 72857945 Completed 201807/06/2018 06/24/19 19 - Comments only - Shashi Farris PA-C - Will treat with RXd AUGMENTI N 500-125m g BID x 10d. OK to continue to suppleme nt with RFd TESSALON PERLES PRN. Problem Code: J01.90; Problem Code Type: ICD-10; Not Available [facility] 3 04:09:37 Mass of neck 246092275 Completed 201808/06/2018 07/23/19 19 - Comments only - Shashi Farris PA-C - Suspect lipoma. As lesion is not currentl y overly botherso me to patient, will hold off on surgical refer for excisona l biopsy. Will continue to monitor for interval change with future visits. Not Available [facility] 3 04:09:37 Headache 29778212 Completed 201808/06/2018 07/23/19 19 - Comments only - Shashi Farris PA-C - After consult with [facility], patient to return to meet with speciali st to assist in on-line ordering of updated glasses. Problem Code: R51; Problem Code Type: ICD-10; Not Available [facility] 3 04:09:37 Neck pain 06489073 Completed 201810/29/2018 Problem Code: M54.2; Problem Code Type: ICD-10; Not Available [facility] 3 04:09:37 Joint pain 44619539 Completed 201810/29/2018 10/16/19 19 - Comments only - Shashi Farris PA-C - Will update C and L spine imaging via [facility] to determin e extent of progress ion of timi bates s. May consider for [facility] vs. [facility] refer vs. rheumato logy consult based upon results of same. Problem Code: M25.50; Problem Code Type: ICD-10; Not Available [facility] 3 04:09:38 Disorder of external ear 17116662 Completed 201810/29/2018 10/16/19 19 - Comments only - Shashi Farris PA-C - Treated with ear lavage in-offic e today as reuqeste d by audiolog y Problem Code: H61.899; Problem Code Type: ICD-10; Not Available [facility] 3 04:09:38 Disorder of nasal sinus 5099717 Completed 201803/04/2019 02/19/20 19 - Comments only - Shashi Farris PA-C - Patient reassure d no evidence on today's PX to suggest for bacteria l sinusiti s to warrant ABX treatmen t. Instead, suggeste d for Shobha to resume RFd FLONASE PRN for relief of congesti ve sxs. Not Available [facility] 3 04:09:38 Venereal disease screenin g Completed 201805/28/2019 Problem Code: Z11.3; Problem Code Type: ICD-10; Not Available [facility] 3 04:09:38 Cough 46728123 Active 201901/20/20 22 - Comments only - Shashi Farris PA-C - CHRONIC COUGH, SINUS CONGESTI ON Schedule d for surgical treatmen t interven tion via [facility] 11/12/21. In the interim, patient encourat ed to use SYMBICOR T BID via spacer (agrees to consider PROAIR MDI as rescue with future visits) and ZYRTEC 10mg QD and suppleme nt with FLONASE and RFd TESSALON PERLES PRN. Problem Code: R05; Problem Code Type: ICD-10; Not Available [facility] 3 04:09:38 Upper respirat ory tract infectio n caused by Influenz a virus [id number] 449967 Completed 201908/21/2019 08/12/19 20 - Comments only - Shashi Farris PA-C - Given concern for developi ng secondar y pneumoni a, will cover with DOXYCYCY LINE 100mg BID. Addition ally, will replace TESSALON PERLES with RXd ROBITUSS IN AC PRN for severe cough. We have arranged for Shobha to return to [facility] for medical recheck upon completi on of ABX treatmen t, however, certainl y she understa nds to reach out to provider vs. local ED with any problems or concerns for symptoma tic escalati on in the interim. Problem Code: J10.1; Problem Code Type: ICD-10; Not Available [facility] 3 04:09:39 Seasonal allergic rhinitis 690439770 Completed 201912/17/2019 12/03/19 20 - Comments only - Shashi Farris PA-C - Having failed antihist amines (ZYRTEC, CLARITIN ), patient agrees to trial RXd SINGULAI R 10mg QD, which may have some positive pulmonar y effect. Problem Code: J30.2; Problem Code Type: ICD-10; Not Available [facility] 3 04:09:39 Elevated blood-pr essure reading without diagnosi s of hyperten eulalio 177414933 Completed 201902/07/2020 01/24/20 20 - Comments only - Shashi Farris PA-C - Today's BP up. Review of EMR suggests 150/90 on 12/03/19 and 134/78 on 08/20/19. Given potentia l for this to influenc e RXing of stimulan t therapy, will continue to monitor closely with future vistis. Problem Code: R03.0; Problem Code Type: ICD-10; Not Available [facility] 3 04:09:39 Dyspnea 805453342 Active 201909/15/19 22 - Comments only - Shashi Farris PA-C - Patient poorly motivate d towards using inhaled therapie s on a more consiste nt basis. She is agreeabl e, however, to use FLONASE PRN. Problem Code: R06.00; Problem Code Type: ICD-10; Not Available [facility] 3 04:09:39 Lumbosac ral radiculo syed 6339467 Completed 201903/23/2020 03/09/20 20 - Comments only - Shashi Farris PA-C - Suspect L5-S1 discogen ic process. After reviewin g various treatmen t options, Shobha is agreeabl e to move forward with IM TORADOL injectio n today. She will call [facility] tomorrow for status update - if with good response to injectio n, will advance with RX TORADOL 10mg PO Q6h PRN (#20 with no RFs) as alternat franklin to IBUPROFE N; if with no signfica nt relief with today's injectio n, will consider MEDROL DOSEPAK as alternat franklin. Addition ally, will maintain low index for refer to PT for guided rehab should sxs prove ongoing. Problem Code: M54.16; Problem Code Type: ICD-10; Not Available [facility] 3 04:09:39 Elevated blood-pr essure reading without diagnosi s of hyperten eulalio 623797303 Completed 201904/21/2020 04/07/20 20 - Comments only - Shashi Farris PA-C - Today's BP remains elevated . Shobha is quite reluctan t to begin on addition al pharmaco logic therapie s at this time. Instead, she would prefer to focus efforts on lifestyl e modicati on for weight loss. Will refer to [facility] Walking Program as above. Problem Code: R03.0; Problem Code Type: ICD-10; Not Available [facility] 3 04:09:40 Elevated blood-pr essure reading without diagnosi s of hyperten eulalio 920420103 Active 202009/07/19 23 - Comments only - Shashi Farris PA-C - - HTN Improved on SPIRONOL ACTONE 25mg QD. Unless with evidence on today's laborato ry testing for this therapy has contribu ting to electrol yte disturba nce, to continue with same. Problem Code: R03.0; Problem Code Type: ICD-10; Not Available [facility] 3 04:09:40 Prediabe jenna [id number] Active 201809/07/19 23 - Comments only - Shashi Farris PA-C - Repeat A1C collecte d today as monitori ng Problem Code: R73.03; Problem Code Type: ICD-10; Not Available [facility] 3 04:09:40 Bilatera l tinnitus [id number] 02 Active 2020 Problem Code: H93.13; Problem Code Type: ICD-10; Not Available [facility] 3 04:09:40 Left lower quadrant pain 121972734 Completed 202010/23/2020 Problem Code: R10.32; Problem Code Type: ICD-10; Not Available [facility] 3 04:09:41 Increase d frequenc y of urinatio n 658089873 Completed 202010/30/2020 Problem Code: R35.0; Problem Code Type: ICD-10; Not Available [facility] 3 04:09:41 Severe recurren t major depressi on without psychoti c features 31730378 Active 202009/15/19 22 - Comments only - Shashi Farris PA-C - Patient encourag ed to advance discussi on with [facility] provider at next visit re: sleep issues and acute panic sxs. ?role for QHS +/- PRN dosing of benzodia zepine therapy for manageme nt, as ATIVAN seems to be one of the few medicati ons that patient tolerate s without issue. Problem Code: F33.2; Problem Code Type: ICD-10; Not Available [facility] 3 04:09:41 Cellulit is of right upper limb [id number] 918288 Completed 202012/09/2020 11/27/19 21 - Comments only - Shashi Farris PA-C - Will treat with RXd AUGMENTI N 5000-125 mg BID x 7d. Patient agrees to continue to wash daily with soap and water and monitor closely for signs of progress franklin infectio n (streaki ng, drainage , fever) Problem Code: L03.113; Problem Code Type: ICD-10; Not Available [facility] 3 04:09:42 Dizzines s and giddines s 981691644 Active 2020 Problem Code: R42; Problem Code Type: ICD-10; Not Available [facility] 3 04:09:42 Acute bronchit is 80142289 Completed 202108/20/2021 08/07/19 22 - Comments only - Sreekanth Das MD - Presenat ion c/w URI on top of a chornic cough/SO B that has not been diagnosi s. COVID swab negative . Discusse d supporti ve care. Has tesslon and LOREN. add dextrome thorphan /guafici ne prn. Could consider predniso ne if not improvin g. Problem Code: J20.8; Problem Code Type: ICD-10; Not Available [facility] 3 04:09:42 COVID-19 383335825 Active 202108/31/19 22 - Comments only - Shashi Farris PA-C - As per patient request, rapid COVID testing complete d today, which returned NEGATIVE to suggest Shobha is no longer in transmis sable stage of infectio n. Will cover for ?seconda ry sinusiti s and herpes labialis with RXd AMOXIL 500mg BID x 10d and VALTREX 2g Q12h x 2 respecti nehemias. Shobha agrees to return to [facility] in 2 weeks for medical recheck as monitori fernanda, however, certainl y she understa nds she is to reach out more acutely with problems or concerns for symptoma tic escalati on in the interim. Problem Code: U07.1; Problem Code Type: ICD-10; Not Available [facility] 3 04:09:42 Follicul ar cysts of skin and subcutan eous tissue 763963718 Completed 202109/13/2021 08/31/19 22 - Comments only - Shashi Farris PA-C - Will refer to ENT/plas tic surgery for consult for excision al procedur e. Problem Code: L72.9; Problem Code Type: ICD-10; Not Available [facility] 3 04:09:42 Eczema 96854807 Completed 202109/28/2021 09/15/19 22 - Comments only - Shashi Farris PA-C - Shobha was encourag ed to reduce shower temperat ure and minimize use of soap (armpits , groin, feet, and hands only) to avoid further drying of skin. Will use RXd TRIAMCIN OLONE CREAM BID to LE lesions, which she may follow with thick, non-frag ranced emollien t moisturi zer. Problem Code: L30.9; Problem Code Type: ICD-10; Not Available [facility] 3 04:09:43 Pain in thoracic spine 877568677 Active 202101/20/20 22 - Comments only - Shashi Farris PA-C - Treated today with IM TORADOL injectio n, which has been quite effectiv e for her in the past (last 05/2021). She agrees to call if she desires to follow with PO course (10mg Q6h PRN #20 with no RFs) as short term replacem ent for OTC IBUPROFE N vs. CELEBREX 200mg QD. Patient agrees to give further thought towards return to PT with future visits. Problem Code: M54.9; Problem Code Type: ICD-10; Not Available [facility] 3 04:09:43 Disorder of nasal sinus 3698355 Completed 202104/29/2022 Not Available [facility] 3 04:09:43 Chronic rhinitis 86666304 Active 202209/07/19 23 - Comments only - Shashi Farris PA-C - - CHRONIC COUGH, SINUS CONGESTI ON Patient reminded that, without RSing for sinus surgery through [facility], we may have some difficul ty in gaining full control of chronic congesti ve sxs. She does not feel in a position to pursue this presentl y, however. As such, she may continue on ADVAIR HFA and ZYRTEC 10mg QD and suppleme nt with FLONASE and RFd TESSALON PERLES PRN. Problem Code: J31.0; Problem Code Type: ICD-10; Not Available [facility] 3 04:09:44 Screenin g mammogra phy Active 2022 Problem Code: Z12.31; Problem Code Type: ICD-10; Not Available [facility] 3 04:09:44 Hypergly cemia 83496999 Completed 201802/22/2023 Problem Code: R73.9; Problem Code Type: ICD-10; Not Available [facility] 3 04:09:44 Iron deficien cy anemia 50160566 Completed 201011/03/2014 Problem Code: 280.9; Problem Code Type: ICD-9; Not Available [facility] 3 04:09:45 Urinary incontin ence 419813083 Completed 201007/20/2020 Problem Code: R32; Problem Code Type: ICD-10; Not Available [facility] 3 04:09:45 Hearing loss 49666591 Completed 202011/10/2020 Problem Code: H91.90; Problem Code Type: ICD-10; Not Available [facility] 3 04:09:45 Constipa tion 68082676 Completed 201601/22/2018 Problem Code: K59.09; Problem Code Type: ICD-10; Not Available [facility] 3 04:09:45 Muscle pain 18210131 Completed 201502/07/2017 Problem Code: M79.1; Problem Code Type: ICD-10; Not Available [facility] 3 04:09:46 Medial epicondy litis 44508503 Completed 201512/25/2017 Problem Code: M77.00; Problem Code Type: ICD-10; Not Available [facility] 3 04:09:46 Hypothyr oidism 91465681 Completed 201407/20/2020 Problem Code: E03.9; Problem Code Type: ICD-10; Not Available [facility] 3 04:09:47 Muscle atrophy 96140152 Completed 201502/07/2017 Problem Code: N81.84; Problem Code Type: ICD-10; Not Available [facility] 3 04:09:47 Illitera te literacy level 612522330 Completed 201002/22/2023 Not Available [facility] 3 04:09:47 Hysterec ward Completed 201006/23/2015 Not Available [facility] 3 04:09:48 Constipa tion 99535546 Completed 201402/22/2023 11/18/19 17 - Comments only - Shashi Farris PA-C - To continue on RFd COLACE +/- MIRALAX PRN. Problem Code: K59.00; Problem Code Type: ICD-10; Not Available [facility] 3 04:09:48 Arthralg ia of the ankle and/or foot 520168159 Completed 201502/07/2017 Problem Code: M25.571; Problem Code Type: ICD-10; Not Available [facility] 3 04:09:48 Headache 93661287 Completed 201502/07/2017 Problem Code: R51; Problem Code Type: ICD-10; Not Available [facility] 3 04:09:48 Mixed urinary incontin ence 393370914 Completed 201002/22/2023 Problem Code: 788.33; Problem Code Type: ICD-9; Not Available [facility] 3 04:09:49 Joint pain 85412256 Completed 201602/22/2023 04/24/20 18 - Comments only - Shashi Farris PA-C - To continue on LYRICA 50mg; titrate to BID as tolerate d. Problem Code: M25.50; Problem Code Type: ICD-10; Not Available [facility] 3 04:09:49 High risk heterose xual behavior 78955505428 9101 Completed 201502/07/2017 Problem Code: Z72.51; Problem Code Type: ICD-10; Not Available [facility] 3 04:09:49 Pain in right arm 644155447 Completed 201612/25/2017 Problem Code: M79.601; Problem Code Type: ICD-10; Not Available [facility] 3 04:09:50 Nondepen dent alcohol abuse in [facility] 512720874 Completed 201002/22/2023 Problem Code: 305.03; Problem Code Type: ICD-9; Not Available [facility] 3 04:09:50 Gastroes ophageal reflux disease 690240477 Completed 201002/22/2023 Not Available [facility] 3 04:09:50 Pain of right wrist 75208159319 9100 Completed 201602/07/2017 Problem Code: M25.531; Problem Code Type: ICD-10; Not Available [facility] 3 04:09:51 General examinat ion of patient Completed 201712/25/2017 Problem Code: Z00.8; Problem Code Type: ICD-10; Not Available [facility] 3 04:09:51 Disorder of skin and/or subcutan eous tissue 18717565 Completed 201612/25/2017 Problem Code: L98.9; Problem Code Type: ICD-10; Not Available [facility] 3 04:09:51 Acute upper respirat ory infectio n 14512104 Completed 201901/24/2020 Problem Code: J06.9; Problem Code Type: ICD-10; Not Available [facility] 3 04:09:52 Non-toxi c uninodul ar goiter 658980776 Completed 201404/12/2015 Problem Code: E04.1; Problem Code Type: ICD-10; Not Available [facility] 3 04:09:52 Pain in bilatera l legs [id number] 889933 Active [address], [place], [address] [facility] 4 18:12:59 Notes:*Problem Name: Illiter ate *ICD-10 Codes: *Problem [...] *Note Date: 01/13/2017 Problem Notes None recorded. Procedures Surgical History Date Name Laterality Status Provider Name and Address Organization Details Recorded Time 08/05/19 12 Total hysterectomy completed Shante Sumner [facility], [facility] 05/28/2024 14:37:01 Imaging Results Imaging Date Name Status LastModified by Organiz ation Details LastModified Time 01/10/2024 XR, lumbar spine completed [email or web address] (Radiology) [address] [place], [address], 01/10/2024 13:55:41 02/08/2024 US, duplex, venous, lower extremity completed [email or web address] (Radiology) [address] [facility] [place], [address], 02/09/2024 09:32:09 01/06/2022 imaging/diagno stic result completed Information not available 02/12/2024 01:26:28 12/27/2022 imaging/diagno stic result completed Information not available 02/12/2024 01:27:56 06/07/2018 XR, chest completed Information no t available 02/12/2024 01:27:58 12/12/2019 XR, chest completed Information no t available 02/12/2024 01:27:59 10/22/2020 CT, abdomen completed Information n ot available 02/12/2024 01:28:00 03/14/2019 MAMMO, screening completed Information not available 02/12/2024 01:28:03 05/05/2020 MAMMO, screening completed Information not available 02/12/2024 01:28:04 05/06/2021 MAMMO, screening completed Information not available 02/12/2024 01:28:05 12/20/2022 MAMMO, screening completed Information not available 02/12/2024 01:28:05 12/27/2022 MAMMO, screening completed Information not available 02/12/2024 01:28:07 02/22/2019 XR, shoulder completed Information not available 02/12/2024 01:28:17 06/07/2018 CT, angiogram, chest completed Information not available 02/12/2024 01:28:18 02/22/2019 NM, bone scan completed Information not available 02/12/2024 01:28:19 07/21/2021 imaging/diagno stic result completed Information not available 02/12/2024 01:28:21 10/29/2018 imaging/diagno stic result completed Information not available 02/12/2024 01:28:24 03/20/2024 MAMMO, screening, digital, bilateral completed [email or web address] (Radiology) [address] [place] [address] [place], [id number], 03/21/2024 07:07:10 05/20/2024 x-ray imaging report completed [address], [address] 05/24/2024 18:02:22 05/20/2024 x-ray imaging report completed [address], [id number] 05/24/2024 18:02:22 05/28/2024 CT imaging report completed [address] [place], [id number] 05/28/2024 09:26:53 Procedure Notes None recorded. Medical Equipment None Reported. Allergies Allergen ID Allergen Name Allergen Category Reaction Reaction Severity Criticality Documentation Date Start Date Code Code System Note Provider Name and Address Organization Details Recorded Time 25613 oxycodone hydrochlo ride medicatio n itching moderate Not available 04/07/20232012 52111 RxNorm Itchy Aller gyRea ction : 'Itch y'; Not Available [facility] 16:29:19 Medications Name Sig Start Date Stop Date Status Note LastModified by Organization Details LastModified Time Singulair 10 mg tablet Take 1 tablet by mouth once a day 02/22 completed Not Available Not Available Not Available losartan 50 mg tablet Take 1 tablet by mouth once a day 06/272 completed Not Available Not Available Not Available celecoxib 200 mg capsule TAKE ONE CAPSULE BY MOUTH TWICE A DAY NEEDED FOR PAIN 03/12 completed DOSE CHANGE Not Available Not Available Not Available cyclobenz aprine 10 mg tablet 1 tab by mouth at bedtime as needed for muscle pain 2023 active Not Available Not Available Not Avai lable Augmentin 875 mg-125 mg tablet Take 1 tab by mouth twice daily. 01/01 completed Not Available Not Available Not Available venlafaxi ne ER 37.5 mg capsule,e xtended release 24 hr Take 1 by mouth daily 05/09 completed Gabriela Salas Not Available Not Available Not Available clonidine HCl 0.1 mg tablet Take 1 tablet every day by oral route at bedtime. 2023 active Not Available Not Available Not Avai lable Carafate 100 mg/mL oral suspensio n 10 ml by mouth as needed 07/13 completed Not Available Not Available Not Available Norvasc 10 mg tablet Take 1 tablet by mouth once a day 2021 active Not Available Not Available Not Avai lable trazodone 50 mg tablet Take 1/2 tablet by mouth every night 04/07 completed jenny Not Available Not Available Not Available cetirizin [...] Available ondansetr on HCl 4 mg tablet TAKE ONE TABLET BY MOUTH EVERY 6 HOURS NEEDED FOR TRAVEL active Not Available Not Available No t Available Medrol (Skyler) 4 mg tablets in a [...] Not Available Mirapex 0.125 mg tablet 1 [facility] Gabriela Salas 2015 active Not Available Not [...] 2 tabs daily 11/22 completed RXD BY JENNY Not Available Not Available Not Available Ultram [...] propranol ol 10 mg tablet 06/13 completed HS Not Available Not Available Not Available amoxicill in 875 mg tablet TAKE ONE TABLET BY MOUTH EVERY 12 HOURS FOR 7 DAYS 08/07 completed Not Available Not Available Not Available Celebrex 100 mg capsule 1 qd 12/20 completed Not Available Not Available Not Available estradiol 0.025 mg/24 hr weekly transderm al patch Apply 1 patch to skin once a week 08/09 completed 08/10/19 23 PT IS NOT USING Not Available Not [...] 25 mg tablet 09/[address]Moone moore [facility] Not Available Not Available Not Available Tylenol 500 mg tablet TAKE 1-2 Q 6 H PRN 05/14 completed Not Available Not Available Not Available levothyro xine 50 mcg tablet Take 1 by mouth daily 12/25 completed RXD BY REINAS Not Available Not Available Not Available pantopraz ole 40 mg tablet,de layed release TAKE ONE TABLET BY MOUTH EVERY DAY 2024 active Not Available Not Available Not Avai lable simvastat in 20 mg tablet Take 1 [...] lone acetonide 55 mcg nasal spray aerosol SPRAY TWO SPRAYS INTO EACH NOSTRIL EVERY DAY active Not Available Not Available [...] CAPSULE BY MOUTH TWICE A DAY NEEDED 05/14 completed Not Available Not Available Not Available sertralin e 25 mg tablet Take 1 tablet every day by oral route. 2024 active Not Available Not Available Not [...] affected area twice a day as needed 05/14 completed Not Available Not Available Not Available Seroquel 100 mg tablet 1 tab QHS 12/01 completed Not Available Not Available Not Available lorazepam 1 mg tablet TAKE 1 TABLET BY MOUTH 30 MINUTES PRIOR TO MRI active Not Available Not Available No t Available azelastin e 137 mcg (0.1 %) [...] TAKE ONE-HALF TABLET BY MOUTH EVERY EVENING 2023 active Not Available Not Available Not Avai lable sertralin e 50 mg tablet Start with [...] Not Available Not Available Not Avai lable celecoxib 400 mg capsule TAKE ONE CAPSULE BY MOUTH EVERY DAY active Not Available Not Available No t Available divalproe x ER 250 mg tablet,ex tended release 24 hr TAKE ONE TABLET BY MOUTH EVERY DAY 11/13 completed Not Available Not Available Not Available Fish Oil 120 mg-180 mg capsule active [...] DAILY IN AM 2014 active RXD BY JENNY Not Available Not Available Not Available Prempro [...] completed Not Available Not Available Not Available cholecalc iferol (vitamin D3) 25 mcg (1,000 unit) tablet 2 tablet by mouth once a day 05/14 completed Not Available Not Available Not Available acetylcys teine 600 mg capsule TAKE TWO CAPSULES BY MOUTH TWICE A DAY NEEDED active Not Available Not Available No t Available Vyvanse 30 mg capsule 1 daily 2018 [...] tablet by mouth daily 05/09 completed Gabriela Maritza Not Available Not Available Not Available Viibryd 10 mg tablet TAKE ONE TABLET BY MOUTH EVERY DAY WITH FOOD 08/07 completed Not Available Not Available Not Available lutein 20 mg tablet active Not Available Not Available No t Available L-Methylf olate 15 mg tablet 05/14 completed Not Available Not Available Not Available Vyvanse 10 mg capsule TAKE ONE CAPSULE BY MOUTH EVERY MORNING 02/02 completed Not Available Not Available Not Available Vraylar 1.5 mg capsule 1 PO once daily 06/13 completed [facility] RX Not Available Not Available Not Available Trintelli x 5 mg tablet Take 1 tablet by mouth daily 12/25 completed JENNY Not Available Not Available Not Available turmeric [...] Not Available Vitals Date Recorded Body height Body mass index (BMI) Body weight Heart rate Systolic blood pressure Diastolic blood pressure Provider Name and Address Organization Details Last Updated DateTime 4 163.5 cm 35.5 kg/m2 79013.8 1 g 72 /min 130 mm[Hg] 66 mm[Hg] ALEXANDRA PERRY LPN [facility], [facility] 4 08:53:55 Date Recorded Body height Body mass index (BMI) Body weight Oxygen saturation Oxygen saturation in Arterial blood by Pulse oximetry Heart rate Systolic blood pressure Diastolic blood pressure Provider Name and Address Organization Details Last Updated DateTime 4 163.5 cm 34.6 kg/m2 12126.1 3 g 99 % 99 % 78.01 /min 134 mm[Hg] 74 mm[Hg] Jere Gan MA [facility], [facility] 4 10:12:49 Date Recorded Body height Body mass index (BMI) Body weight Body temperature Oxygen saturation Oxygen saturation in Arterial blood by Pulse oximetry Heart rate Respiratory rate Systolic blood pressure Diastolic blood pressure Provider Name and Address Organization Details Last Updated DateTime 4 163.5 cm 34.5 kg/m2 12096.9 5 g 98.2 [degF] 97 % 97 % 72 /min 16 /min 144 mm[Hg] 78 mm[Hg] Cynthia Bal MA [facility] 4 17:51:07 Date Recorded Body height Body mass index (BMI) Body weight Heart rate Body temperature Systolic blood pressure Diastolic blood pressure Provider Name and Address Organization Details Last Updated DateTime 4 163.5 cm 34.5 kg/m2 49402.0 5 g 76 /min 98.4 [degF] 154 mm[Hg] 70 mm[Hg] ALEXANDRA PERRY LPN [facility] 4 12:49:59 Date Recorded Body height Body mass index (BMI) Body weight Body temperature Oxygen saturation Oxygen saturation in Arterial blood by Pulse oximetry Heart rate Respiratory rate Systolic blood pressure Diastolic blood pressure Provider Name and Address Organization Details Last Updated DateTime 4 163.5 cm 34.7 kg/m2 76673.6 4 g 97.1 [degF] 97 % 97 % 54 /min 16 /min 130 mm[Hg] 70 mm[Hg] Lida Felder RN [facility] 4 09:23:57 Social History Question Answer Notes LastModified by Organizat ion Details LastModified Time Tobacco Smoking Status Never Smoker KINSEY SHARP MA [facility], [facility] 06/13/2023 11:11:54 What Was The Date Of Your Most Recent Tobacco Screening? 02/02/2024 Information not available 02/02/2024 Has Tobacco Cessation Counseling Been Provided? Yes [email or web address] Information not available 02/02/2024 On What Date Was Tobacco Cessation Counseling Provided? 02/02/2024 [email or web address] Information not available 02/02/2024 Do You Or Have You Ever Used Any Other Forms Of Tobacco Or Nicotine? No [email or web address] Information not available 06/13/2023 Sex: Female Functional Status None recorded. Mental Status None recorded. Family History Relationship Description Onset Age of this Age Resolved Age Notes LastModified by Organization Details LastModified Time Father Family history of Hypertension [email or web address] Not available 02/2023 03:50:02 Father Family history of alcoholism [email or web address] Not available 04/07 03:50:05 Father Family history of heart failure [email or web address] Not available 2022 03:50:10 Father Family history of diabetes mellitus type 1 [email or web address] Not available 2022 03:50:12 Daughter Family history of Arthritis RHEUMA TOID [email or web address] Not available 04/07/2023 03:50:06 Mother Family history of Arthritis [email or web address] Not available 2022 03:50:06 Mother No family history of respiratory disease [email or web address] Not available 2022 03:50:09 Mother Family history of heart failure [email or web address] Not available 2022 03:50:11 Notes:*Problem: Sisters x 3: Asthma x 1, ?heart problems x 1 Brothers x 4 - x 1 due liver CA SONS x 2 - L&W without known medical issues DAUGHTERS x 3 Medical History No medical history recorded. Gynecological HistoryNo gynecological history recorded. Obstetrics History GPAL:G 0 P 0 0 0 0 Immunizations Vaccine Type Date Status Note Provider Nam e and Address Organization Details Recorded Time Tdap [address], [place], [address], [facility] 08/08/2023 10:01:04 Tdap 4 completed Not Available [facility] 04/07/2023 05:01:19 Tdap 0 completed Not Available [facility] 04/07/2023 05:01:19 Td(adult) unspecified formulation 1 completed Not Available [facility] 04/07/2023 05:01:19 Influenza, split virus, trivalent, PF 6 completed Not Available [facility] 04/07/2023 05:01:19 Influenza, split virus, trivalent, preservative 8 completed Not Available [facility] 04/07/2023 05:01:20 Influenza, split virus, quadrivalent, PF 1 completed Not Available [facility] 04/07/2023 05:01:20 Influenza, split virus, quadrivalent, PF 2 completed Not Available [facility] 04/07/2023 05:01:20 zoster recombinant 8 completed Not Available [facility] 04/07/2023 05:01:20 zoster recombinant 8 completed Not Available [facility] 04/07/2023 05:01:20 zoster recombinant 8 completed Not Available [facility] 04/07/2023 05:01:20 COVID-19, mRNA, LNP-S, PF, 100 mcg/0.5mL dose or 50 mcg/0.25mL dose 1 completed Not Available [facility] 04/07/2023 05:01:21 COVID-19, mRNA, LNP-S, PF, 100 mcg/0.5mL dose or 50 mcg/0.25mL dose 1 completed Not Available [facility] 04/07/2023 05:01:21 COVID-19, mRNA, LNP-S, PF, 100 mcg/0.5mL dose or 50 mcg/0.25mL dose 1 completed Not Available [facility] 04/07/2023 05:01:21 SARS-COV-2 (COVID-19) vaccine, UNSPECIFIED 2 completed Not Available [facility] 04/07/2023 05:01:21 COVID-19, mRNA, LNP-S, bivalent, PF, 30 mcg/0.3 mL dose 2 completed Not Available [facility] 04/07/2023 05:01:21 pneumococcal polysaccharide PPV23 5 completed Not Available [facility] 04/07/2023 05:01:21 pneumococcal polysaccharide PPV23 1 completed Not Available [facility] 04/07/2023 05:01:22 influenza, unspecified formulation 5 completed Not Available [facility] 04/07/2023 05:01:22 influenza, unspecified formulation 7 completed Not Available [facility] 04/07/2023 05:01:22 influenza, unspecified formulation 6 completed Not Available [facility] 04/07/2023 05:01:22 influenza, unspecified formulation 0 completed Not Available [facility] 04/07/2023 05:01:22 Influenza, split virus, trivalent, PF [address], [facility] [address], [facility] 03/12/2024 16:06:12 COVID-19, mRNA, LNP-S, PF, kurt-sucrose, 30 mcg/0.3 mL [address], [facility] [address], [facility] 03/12/2024 16:06:12 Influenza, split virus, quadrivalent, PF 3 completed Not Available [facility] 06/09/2023 05:31:10 COVID-19, mRNA, LNP-S, PF, kurt-sucrose, 30 mcg/0.3 mL 3 completed Not Available [facility] 06/09/2023 05:31:11 Past Encounters Encounter ID Performer Location Encounter Start Date Encounter Closed Date Diagnosis/Indication Diagnosis SNOMED-CT Code Diagnosis ICD10 Code Diagnosis Note [id number] SHASHI FARRIS PA-C [address] [address] 06/13/2023 10:14:48 06/13/2023 11:44:14 Elevated blood-pressure reading without diagnosis of hypertension 857992871 R03.0 Low back pain 182069750 M54.50 Prediabetes 096364188 R7 3.03 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 To continue on current treatment regimen (?N AC, L-METHYLFO LATE, ATIVAN, VYVANSE, VIIBRYD, VRAYLAR) as RXd by specialty service provider. Cough 62105601 R05.9 Gastroesop hageal reflux disease without esophagitis 551208635 K21.9 [id number] SHASHI FARRIS PA-C [address] [address] 08/08/2023 07:45:14 08/08/2023 08:55:42 Essential hypertension 81674913 I10 Patient agrees to check home medication supply to determine if she is taking SPIRONOLAC TONE 25mg QD. Will consider to RS vs adjust dose due to today's BP elevated above goal. Prediabetes 925857393 R7 3.03 Repeat A1C collected today as monitoring on METFORMIN ER 250mg QD. Chronic low back pain 27 5435327 M54.50 Treated with IM TORADOL 60mg in 0ffice today. If with good response to same, could consider RX 10mg Q6h PRN (#20 with no RFs) to temporaril y replace routinely RXd CELEBREX 200mg PRN. 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 To continue on current treatment regimen (NAC, L-METHYLFO LATE, DEPAKOTE, ATIVAN, VYVANSE) as RXd by specialty service provider. Active or passive immunization 649432089 Z23 TdaP booster administer ed today [id number] SHASHI FARRIS PA-C [address] [address] 11/14/2023 08:34:34 11/14/2023 09:57:12 Chronic low back pain 410736292 M54.50 Prediabetes 385703413 R7 3.03 Seasonal a llergic rhinitis 914887503 J30.2 [id number] SHASHI FARRIS PA-C [address] [address] 01/01/2024 09:22:40 05/01/2024 14:53:53 Paresthesia of lower extremity 377617299 R20.2 To complete L-spine x-ray as discussed at time of last [facility] OV. May consider PT vs pain/spine center refer based upon results of same. Prediabetes 982404702 R7 3.03 Today's fingerstic k A1C WNLs (5.4) Motion sickness 94921980 T75.3XXD OK to continue to use RFd ZOFRAN PRN for motion sickness. Anxiety 40284386 F41.9 Patient agrees to begin on RXd ZOLOFT 25mg QD. [id number] VESNA WAGGONER PA-C [address] [place] [address] 02/02/2024 16:06:27 02/02/2024 18:27:36 Pain in bilateral legs 8254431783 6907601 M79.604 M79.605 Patient has been experienci ng pain in bilateral lower extremitie s which she describes as labor like pains last night. She states she has had cramping intermitte ntly for the last couple years but has been worse recently. Seems that physical activity seems to worsen this. She has history of varicose veins and is most worried about blood clots. She is not having chest pain or shortness of breath. She is having some degree of fevers and/or night sweats. She has had some tick exposure but does not do tick checks. She does not take any statin medication s. I am going to obtain blood work including CBC, CMP to mostly evaluate for electrolyt e abnormalit y and in the event that there is a blood clot we will have CBC and CMP for reference. I am also going to obtain a tick and Lyme panel. Patient understand s the CBC and CMP will be back tomorrow. My colleague will communicat e those results to her. Tick and Lyme panel will take a few days to return. Will communicat e those when they return. I have ordered for ultrasound of bilateral lower extremitie s and we cannot get that tonight and/or this weekend however patient understand s I will reach out to her on Monday to schedule for this. My suspicion that she has clots in bilateral lower extremitie s is low. I do not think that this needs to happen emergently . If she develops any significan t worsening of pain and/or develops chest pain or shortness of breath she will go to the emergency department . Her vital signs are reassuring . Her presentati on is reassuring . Unfortunat ignacia with attempted blood draw we were unable to get blood here. Because of this we have placed orders to be done outpatient on Monday. She will arrive on our CT to get to lab for blood work and ultrasound . She is going to try to get them all done at once. [id number] SHASHI FARRIS PA-C [address] [address] 03/12/2024 12:33:52 03/12/2024 13:59:31 Active or passive immunization 093946856 Z23 COVID and flu vaccines administer ed today Essential hypertension 37411949 I10 Patient agrees to initiation of CLONIDINE 0.1mg QHS (historica lly failed SPIRONOLAC TONE, LISINOPRIL , LOSARTAN, NORVASC, PROPRANOLO L due to ASE) Chronic low back pain 27 3550308 M54.50 Given fairly widespread nature of patient DDD, discussed option to pursue referral to [facility] for injections , however, she would prefer to re-engage with PT for guided rehab as first line (referral to NPT entered in EMR). Additional ly, OKd to increase CELEBREX to 400mg QD for pain control. Varicose v eins of lower extremity 03826375 I83.893 Recent doppler US (02/08/24) NEGATIVE for DVT. Will request for insurance coverage for replacemen t compressio n stockings through local medical supplier. Major depr ession, single episode 17011947 F32.9 Followed by [facility]. Could consider to increase to full 25mg ZOLOFT for improved mood stability. Otherwise to continue on VYVANSE 50mg QD as RXd by specialty service provider. Prediabetes 287584511 R7 3.03 Last A1C WNLs on METFORMIN XR 250mg QD. Will continue to monitor Screening mammography 24 659212 Z12.31 Will arrange for screening mammogram @ [facility] at next available Seasonal a llergic rhinitis 421962591 J30.2 OK to continue to use RFd NASACORT PRN. Memory impairment 573538 006 R41.3 Will attempt to obtain MRI through [facility] (RXd ATIVAN 1mg PRN to dose prior to procedure due to extreme claustroph ia). May consider neurology referral for more comprehens franklin assessment based upon results of same. [id number] SHASHI FARRIS PA-C [address] [address] 05/14/2024 08:30:11 05/14/2024 10:11:35 Neck pain 93885567 M54.2 Suspect cervical radiculiti s +/- associated muscle tension/sp asm. As such, while awaiting results of today's requested c-spine and right shoulder x-rays, OK to begin on RXd FLEXERIL 10mg QHS PRN as supplement to routinely RXd CELEBREX 400mg QD. Pain of ri ght shoulder joint [id number] 5354541 M25.511 As above. Essential hypertension 81882185 I10 Today's BP suggests fair control on RFd CLONIDINE 0.1mg QHS (historica lly failed SPIRONOLAC TONE, LISINOPRIL , LOSARTAN, NORVASC, PROPRANOLO L due to ASE) Prediabetes 231000812 R7 3.03 Last A1C WNLs on METFORMIN XR 250mg QD. Will continue to monitor Major depr ession, single episode 20963309 F32.9 Followed by [facility]. To continue on ZOLOFT and VYVANSE 50mg QD as RXd by specialty service provider. Varicose v eins of lower extremity 27106561 I83.893 Recent doppler US (02/08/24) NEGATIVE for DVT. Patient encouraged to reach out to DME supplier in [place] re: status of previously requested replacemen t compressio n stockings. Health Concerns Section Related Observation LastModified by Organization Detai ls LastModified Time None Recorded Concern Status LastModified by Organization Details LastModified Time None Recorded Advance Directives Directive None Recorded Payers Encounter Date Sequence Insurance Name Policy Number Policy Roberts Covered Member ID Roberts Member ID Guarantor Name 11/14/2023 1 [facility] (MEDICAID) Shobha Ramírez [id number] Shobha Ramírez 01/01/2024 1 [facility] (MEDICAID) Shobha Ramírez [id number] Shobha Ramírez 02/02/2024 1 [facility] (MEDICAID) Shobha Ramírez [id number] Shobha Ramírez 03/12/2024 1 [facility] (MEDICAID) Shobha Ramírez [id number] Shobha Ramírez 05/14/2024 1 [facility] (MEDICAID) Shobha Ramírez [id number] Shobha Ramírez Notes Date Note Type Note Provider Name and Address Organization Details Recorded Time 11/14/2023 text/html 63y/o female presenting for HTN, preDM, anxiety/mood disorder, and chronic pain. [address], [place], [address], [facility]. 06/11/2024 13:06:48 01/01/2024 text/html 63y/o female presenting with c/o right sided weakness. Shobha reports that for just over a week now she has appreciated weakness to right side of body (intermittent toe and calf numbness; fuzzy feeling). Ambulation affected. Clumsy; feels weak. Has yet to schedule repeat L-spine x-ray as requested at time of last [facility] visit 11/14/23 (order appears to be hung up in EMR). Seemingly random; non-positional. Mentation as per norm. Ericies BARKER. [address], [place], [address], [facility]. 06/12/2024 14:28:03 02/02/2024 text/html Shobha is a 64-year-old female who presents with cramping of bilateral lower extremities. She states has been intermittent over the last couple years but has become worse recently. She describes it feeling like labor pains last night. She reports that anytime she comes physically active she feels like the cramping and pain in her legs worsen. She has history of varicose veins and is worried she may have a blood clot. She is not having chest pain or shortness of breath. She does endorse that she will have sweats during these episodes and sometimes at night as well. She has had joint pain but is unsure if this is worse than usual. She does believe she has been exposed to ticks, does not do tick checks regularly. Uses a heating pad when symptoms are bad, get some relief. Does not take statin medication. [address], [place], [address], [facility]. 02/02/2024 19:49:02 03/12/2024 text/html 64y/o female presenting for HTN, preDM, anxiety/mood disorder, and chronic pain. SHASHI FARRIS PA-C [address], [place], [address], [facility]. 03/20/2024 11:55:39 05/14/2024 text/html 64y/o female presenting for f/u HTN, preDM, anxiety/mood disorder, and chronic pain. SHASHI FARRIS PA-C [address], [place], [address], [facility]. 05/14/2024 10:34:46 OBGyn Episode No OBEpisode recorded.
--- OUTSIDE RECORDS SUMMARY | 2024-07-04 00:32 | XMS_ITS | Patient Health Record ---
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) Active confirmed 69402957 Problem Pes planus of both feet (734) Active confirmed 46151974 Problem Acquired pes planovalgus of right foot (M21.41) Active confirmed 84710302 Problem Hammertoe of left foot (M20.42) Active confirmed Acquired hammer toe of left foot (772485754580 9103) Problem Hammertoe of right foot (M20.41) Active confirmed Acquired hammer toe of right foot (758346322466 9105) PLAN OF TREATMENT No Information Insurance Providers Payer Name Payer Address Payer Phone Subscriber Number Group Number Insured Name Patient Relationship to Insured Coverage Start Date Coverage End Date [place] [employer] [employer] [place], [place] [id number] JANICE DÍAZ Self - patient is the insured SELF [place] [address] JANICE DÍAZ Self - patient is the [...]
--- OUTSIDE RECORDS SUMMARY | 2024-07-04 00:33 | XMS_ITS | Encounter Summary ---
Author Organization [facility] [place] [address] Care Team Providers Care Gas Technician Name Role Phone Shashi Verma Primary Care Provider [phone] Encounter Details Date Type Department Care Team (Latest Contact Info) Description 04/18/2016 1:00 PM EST Procedure [place] [address] Constipation, unspecified constipation type Social History Tobacco [...] type documented in this encounter Care Teams Gas Technician Relationship Specialty Start Date End Date Shashi Verma PA [address] [place] [address] PCP - General Family Medicine 04/06/16 01/14/20 documented as of this encounter
--- OUTSIDE RECORDS SUMMARY | 2024-07-04 00:33 | XMS_ITS | Clinical Summary ---
Author Organization [facility] Address [address] [place] [address] Care Team Providers Care Boiler House Mechanic Name Role Phone Gina Morales MD Primary Care Provider [phone] Social History Tobacco Use Types Packs/Day Years Used Date Smoking Tobacco: Never Assessed Interpersonal Safety Answer Date Record ed Physically Hurt Never 12/29/2019 Verbally Threaten Not on file 12/29/2019 Comments Unknown Sex and Gender Information Value Date Recorded Sex Assigned at Not on file Legal Sex Female 18:12 EST Gender Identity Not on file Sexual Orientation Not on file Plan of Treatment Health Maintenance Due Date Last Done Comments COVID-19 Vaccine (2023- season) 2024 RSV Immunization ( o r 60+ Years) (1 - 1-dose 75+ series) 2037 Hepatitis C Screen Completed 05/14/2019 Procedures Procedure Name Priority Date/Time Associated Diagnosis Comments HEPATITIS C AB W REFLEX TO HCV RNA BY PCR Routine 05/14/2019 12:10 EST from Last 3 Months or Most Recently Relevant to Health Maintenance Results * HEPATITIS C AB W REFLEX TO HCV RNA BY PCR (05/14/2019 12:10 EST) Hep C Antibody Negative Negative 05/16/2019 10:44 EST [facility] Blood VENOUS BLOOD / Unknown 05/14/2019 12:10 EST 05/15/2019 15:51 EST us Provider Unknown CHEMISTRY & BLOOD GAS ORDERA BLES Final Result [facility] [address] [place] [address] from Last 3 Months or Most Recently Relevant to Health Maintenance Insurance MEDICAID [place] Care Teams Boiler House Mechanic Relationship Specialty Start Date End Date Gina Morales MD [address] [place] [address] PCP - General 04/24/13
--- OUTSIDE RECORDS SUMMARY | 2024-07-04 00:33 | XMS_ITS | Encounter Summary ---
Author Organization [facility] Address [address] [place] [address] Care Team Providers Care Fruit Picker Machine Operator Name Role Phone Gina Morales MD Primary Care Provider [phone] Encounter Details Date Type Department Care Team (Late st Contact Info) Description 05/15/2019 Lab Requisition [facility] Pathology & [place] [address] Unknown, Provider, Social History Tobacco Use Types Packs/Day Years Used Date Smoking Tobacco: Never Assessed Comments Unknown Sex and Gender Information Value [...] C Antibody Negative Negative 05/16/2019 10:44 EST [facility] Blood VENOUS BLOOD / Unknown 05/14/2019 12:10 EST 05/15/2019 15:51 EST us Provider Unknown CHEMISTRY & BLOOD GAS ORDERA BLES Final Result [facility] [address] [place] [address] documented in this encounter Visit Diagnoses Not on filedocumented in this encounter Care Teams Fruit Picker Machine Operator Relationship Specialty Start Date End Date Gina Morales MD [address] [place] [address] PCP - General 04/24/13 documented as of this encounter
--- OUTSIDE RECORDS SUMMARY | 2024-07-04 00:33 | XMS_ITS | Encounter Summary ---
Author Organization [facility] Address [address] [place] [address] Care Team Providers Care Marketing Communications Leader Name Role Phone Gina Morales MD Primary Care Provider [phone] Encounter Details Date Type Department Care Team (Late st Contact Info) Description 02/16/2017 Results Only [facility] [phone] Joana Vuong PA-C [address] [place] [address] Social History Tobacco Use Types Packs/Day Years [...] ? JANICE DÍAZ ? Accession #: ? [id number] ? : ? 1960 (Age: 57) ??F [...] [place] 02/18/2017 7:11 AM End of Report [facility] 02/16/2017 16:0 8 EDT 02/17/2017 16:08 EDT us Joana Vuong PA-C PATHOLOGY ORDERABLES Allyson rendon Result [facility] [address] [place] [address] documented in this encounter Visit Diagnoses Not on filedocumented in this encounter Care Teams Marketing Communications Leader Relationship Specialty Start Date End Date Gina Morales MD [address] [place] [phone] PCP - General 04/24/13 documented as of this encounter
--- OUTSIDE RECORDS SUMMARY | 2024-07-04 00:33 | XMS_ITS | Encounter Summary ---
Author Organization Formerly [facility] Address [facility] [place] [address] Care Team Providers Care Lens Block Gauger Name Role Phone Shashi Verma Primary Care Provider [phone] Encounter Details Date Type Department Care Team (Late st Contact Info) Description 11/01/2017 10:30 AM EDT Office [place] [address] Yossi oMrales APRN [facility] DR GASTROENTER[place] [address] Irritable bowel syndrome with constipation Social History [...] syndrome documented in this encounter Care Teams Lens Block Gauger Relationship Specialty Start Date End Date Shashi Verma PA [address] [place] [address] PCP - General Family Medicine 04/06/16 01/14/20 documented as of this encounter
--- OUTSIDE RECORDS SUMMARY | 2024-07-04 00:33 | XMS_ITS | Encounter Summary ---
Author Organization [facility] [place] [address] Care Team Providers Care Impact Hammer Operator Name Role Phone Shashi Verma Primary Care Provider [phone] Encounter Details Date Type Department Care Team (Late st Contact Info) Description 01/18/2018 Orders [place] [id number] Negin Vick Social History Tobacco Use Types [...] on filedocumented in this encounter Care Teams Impact Hammer Operator Relationship Specialty Start Date End Date Shashi Verma PA [address] [place] [address] PCP - General Family Medicine 04/06/16 01/14/20 documented as of this encounter
--- OUTSIDE RECORDS SUMMARY | 2024-07-04 00:33 | XMS_ITS | Encounter Summary ---
Author Organization [facility] [place] [address] Care Team Providers Care Tapper Shank Name Role Phone Shashi Verma Primary Care Provider [phone] Encounter Details Date Type Department Care Team (Late st Contact Info) Description 07/07/2016 Tele[place] [phone] Maria Ines Muir RN Social History Tobacco [...] : 1960 Referring Provider ?? Yossi Morales, SVP RESEARCH AND STRATEGIC ANALYSIS ?? Attached Report ?? Shobha Ramírez ( ) : 1960 Shobha Ramírez 06/24/2016 1:00 PM ?? Tech Visit Description: 56 year old female Provider: Lc Murillo MD Department: [facility] Diagnoses ?? Abdominal bloating ?? Codes: R14.0 ?? Chief Complaint ?? Bloated ?? Progress Notes ?? Lc Murillo MD at 06/24/2016 ??1:00 PM ?? Author Type: Physician Status: Signed Sweatband Flanger: Lc Murillo MD (Physician) ? 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 Lc Murillo MD [place] [address] P: [phone] F: [phone] ?? Copy: TORI Dawson ? Unable to reach patient by phone, left message on voicemail to call the office at her convenience regarding her HBT results. documented in this encounter Plan of Treatment Not on file documented as of this encounter Visit Diagnoses Not on filedocumented in this encounter Care Teams Tapper Shank Relationship Specialty Start Date End Date Shashi Verma PA [address] [place] [address] PCP - General Family Medicine 04/06/16 01/14/20 documented as of this encounter
--- OUTSIDE RECORDS SUMMARY | 2024-07-04 00:33 | XMS_ITS | Encounter Summary ---
Author Organization [facility] Address [address] [place] [address] Care Team Providers Care Agricultural Plow Operator Name Role Phone Derek Rodgers MD Primary Care Provider [phone] Encounter Details Date Type Department Care Team (Late st Contact Info) Description 04/22/2013 Results Only [facility] ([facility] [address] [place] [id number] Fernando Peace MD [address] [place] [address] Social History Tobacco Use Types Packs/Day Years [...] ng unformatted reports. Name: ? JANICE DÍAZ Charity ? Accession #: ? [id number] ? : ? 1960 (Age: 53) ??F [...] 04/22/2013 15:3 1 EST 04/22/2013 15:31 EST us Fernando Peace MD PATHOLOGY ORDERABLES Final Result [facility] [address] [place] [address] documented in this encounter Visit Diagnoses Not on filedocumented in this encounter Care Teams Agricultural Plow Operator Relationship Specialty Start Date End Date Derek Rodgers MD [facility] [address] [place] [address] PCP - General 12/27/10 04/23/13 documented as of this encounter
--- OUTSIDE RECORDS SUMMARY | 2024-07-04 00:33 | XMS_ITS | Encounter Summary ---
Author Organization [facility] [place] [address] Care Team Providers Care Event Specialist Food Demonstrator Name Role Phone Shashi Verma Primary Care Provider [phone]- [phone] Reason for Visit * Reason Onset Date Comments Prior Authorization 07/17/2017 Encounter Details Date Type Department Care Team ([facility] st Contact Info) Description 07/17/2017 [place] [phone] Cici Tanner CMA Prior Authorization Social History Tobacco Use Types [...] CMA - 07/17/2017 2:48 PM EST Insurance: [place] Insurance phone: [phone] Medication: Pantoprazole 40 mg BID Q:60/30 Medication tried and failed: pantoprazole QD, omeprazole, esomeprazole Decision: approved Start: 07/17/2017 End: 10/14/2017 * Effective 07/07/2017: Approvals of BID dosing for GERD will now be limited to 12 weeks* Tracking number: [id number] documented in this encounter Plan of Treatment Not on file documented as of this encounter Visit Diagnoses Not on filedocumented in this encounter Care Teams Event Specialist Food Demonstrator Relationship Specialty Start Date End Date Shashi Verma PA [address] [place] [address] PCP - General Family Medicine 04/06/16 01/14/20 documented as of this encounter
--- OUTSIDE RECORDS SUMMARY | 2024-07-04 00:33 | XMS_ITS | Encounter Summary ---
Author Organization [facility] Address [address] [place] [address] Care Team Providers Care Assistant Teaching Professor Name Role Phone Unavailable Primary Care Provider Unavailabl e Encounter Details Date Type Department Care Team (Late st Contact Info) Description 12/17/2007 Before PRISM Converted Visit (Maple) [facility] - Maple conversion [address] [place] [address] Torri Castro MD [address] [place] [address] [place] [address] Social History Tobacco Use Types Packs/Day Years [...] [facility]. [facility] Report Status Final [id number] [facility] 12/17/2007 9:40 EDT 12/24/2007 11:52 EDT us Torri Castro MD MICROBIOLOGY - GENERAL ORDERABL ES Final Result [facility] [address] [place] [address] * CYTOPATHOLOGY (12/17/2007 0:00 EDT) Pathology Report: CYTOPATHOLOGY REPORT ? Reports generated via electronic interface contain original data; ? however they are lacking the format of the original report. ? Caution should be taken when reading/interpreti ng unformatted reports. ? Name: ? JANICE DÍAZ ? Accession #: ? [id number] ? : ? 1960 (Age: 47) ??F ?Collect Date: ? 12/17/2007 ? Location: ? [facility] ? Receive Date: ? 12/17/2007 ? Provider: ?TORRI STANTON MD ? Copy to: ? Specimen/Source: ?ThinPrep Pap Test, Cervix/Endocervix, processed on Cytyc ThinPrep Imaging System, with manual evaluation ? [...] by: ? TAY Phan(ASCP) ? Report Date: ??12/21/2007 15:53 ? End of Report ? [facility] 12/17/2007 12/17/2007 us Torri Castor MD PATHOLOGY ORDERABLES Final Resu lt Performing Organization Address City/State/[facility] Co de Phone Number [facility] [address] [place] [address] documented in this encounter Visit Diagnoses Not on filedocumented in this encounter
--- OUTSIDE RECORDS SUMMARY | 2024-07-04 00:33 | XMS_ITS | Encounter Summary ---
Author Organization [facility] [place] [address] Care Team Providers Care Pneumatic Jacketer Name Role Phone Shashi Verma Primary Care Provider +1- [phone] Encounter Details Date Type Department Care Team (Latest Contact Info) Description 05/14/2019 1:30 PM EST Office [place] [phone] Yossi Morales APRN [facility] [place] [address] Gastroesophageal reflux disease without esophagitis Social History [...] reflux documented in this encounter Care Teams Pneumatic Jacketer Relationship Specialty Start Date End Date Shashi Verma PA [address] [place] [address] PCP - General Family Medicine 04/06/16 01/14/20 documented as of this encounter
--- OUTSIDE RECORDS SUMMARY | 2024-07-04 00:33 | XMS_ITS | Encounter Summary ---
Author Organization [facility] Address [facility] [place] [address] Care Team Providers Care Nightclub Manager Name Role Phone Shashi Verma Primary Care Provider [phone]- [phone] Reason for Visit * Reason Comments Follow-up Encounter Details Date Type Department Care Team (Late st Contact Info) Description 06/07/2017 11:30 AM EST Office [place] [address] Yossi Morales APRN [facility] [place] [address] Irritable bowel syndrome with constipation Social History [...] syndrome documented in this encounter Care Teams Nightclub Manager Relationship Specialty Start Date End Date Shashi Verma PA [address] [place] [address] PCP - General Family Medicine 04/06/16 01/14/20 documented as of this encounter
--- OUTSIDE RECORDS SUMMARY | 2024-07-04 00:33 | XMS_ITS | Encounter Summary ---
Author Organization [facility] Address [facility] [address] [place] [id number] Care Team Providers Care Transportation Equipment Painter Name Role Phone Shashi Verma Primary Care Provider [phone]- [phone] Reason for Referral * Consultation (Routine) - Closed Specialty Diagnoses / Procedures Referred By Contac t Referred To Contact Obstetrics and Gynecology Diagnoses Rectocele, female Yossi Morales APRN [facility] [place] [address] Delmer Velasco MD [facility] DR OBSTETRICS [place] [address] Referral ID Status Reason Start Date Expiration Date V isits Requested Visits Authorized [id number] Closed Consult, Test & Treat 01/03/2019 01/03/2020 1 1 Encounter Details Date Type Department Care Team (Late st Contact Info) Description 01/03/2019 11:30 AM EDT Office [place] [address] Yossi Morales APRN [facility] [place] [address] Female urethrocele; Rectocele, female Social History Tobacco [...] Rectocele documented in this encounter Care Teams Transportation Equipment Painter Relationship Specialty Start Date End Date Shashi Verma PA [address] [place] [address] PCP - General Family Medicine 04/06/16 01/14/20 documented as of this encounter
--- OUTSIDE RECORDS SUMMARY | 2024-07-04 00:33 | XMS_ITS | Encounter Summary ---
Author Organization [facility] Address [address] [place] [address] Care Team Providers Care Accounting Representative Name Role Phone Gina Morales MD Primary Care Provider Encounter Details Date Type Department Care Team (Late st Contact Info) Description 02/07/2024 Lab Requisition [facility]ology & Laboratory Medicine - [address] [address] Outr Resulting Lab, Provider Social History Tobacco [...] Procedure Name Priority Date/Time Associated Diagnosis Comments LYME AB Routine 02/07/2024 13:17 EDT documented in this encounter Results * LYME AB (02/07/2024 13:17 EDT) Lyme Ab Negative Negative 02/08/2024 9:38 EDT [facility] Blood VENOUS BLOOD / Unknown 02/07/2024 13:17 EDT 02/07/2024 21:40 EDT us Provider Outr Resulting Lab IMMUNOLOGY AND SEROL OGY ORDERABLES Final Result [facility] [address] [place], [place] [address] documented in this encounter Visit Diagnoses Not on filedocumented in this encounter Care Teams Accounting Representative Relationship Specialty Start Date End Date Gina Morales MD [address] [place] [address] PCP - General 04/24/13 documented as of this encounter
--- OUTSIDE RECORDS SUMMARY | 2024-07-04 00:33 | XMS_ITS | Referral Summary ---
Author Organization [facility] Address [address] [place] [address] Care Team Providers Care Caravan Park And Camping Ground Manager Name Role Phone Gina Morales MD Primary Care Provider [phone] Social History Tobacco Use Types Packs/Day Years [...] C Antibody Negative Negative 05/16/2019 10:44 EST [facility] Blood VENOUS BLOOD / Unknown 05/14/2019 12:10 EST 05/15/2019 15:51 EST us Provider Unknown CHEMISTRY & BLOOD GAS ORDERA BLES Final Result [facility] [address] [place] [address] from Last 3 Months or Most Recently Relevant to Health Maintenance Insurance MEDICAID [place] Care Teams Caravan Park And Camping Ground Manager Relationship Specialty Start Date End Date Gina Morales MD [address] [place] [address] PCP - General 04/24/13
--- OUTSIDE RECORDS SUMMARY | 2024-07-04 00:33 | XMS_ITS | Encounter Summary ---
Author Organization [facility] Address [facility] [place] [address] Care Team Providers Care Stone Breaker Name Role Phone Shashi Verma Primary Care Provider [phone]- [phone] Encounter Details Date Type Department Care Team (Late st Contact Info) Description 02/20/2017 1:00 PM EDT Office [place] [address] Yossi Morales APRN [facility] [place] [address] Irritable bowel syndrome with constipation Social History [...] syndrome documented in this encounter Care Teams Stone Breaker Relationship Specialty Start Date End Date Shashi Verma PA [address] [place] [address] PCP - General Family Medicine 04/06/16 01/14/20 documented as of this encounter
--- OUTSIDE RECORDS SUMMARY | 2024-07-04 00:33 | XMS_ITS | Continuity of Care Document ---
Author Organization [facility], [facility] Address [address] [place] [address] Assessment No assessment recorded. Plan of Treatment Reminders Order Date Submit Date Provider Last Modified By Organization Details Last Modified Time Details Appointments Follow Up 30 2024 11:00A M SHASHI FARRIS Not available Not available Not available Lab None recorded. Referral None recorded. Procedures None recorded. Surgeries None recorded. Imaging XR, cervical spine [address] (Radiology), [address] [place] [address] [place], [address], 05/24/2024 18:02:34 XR, shoulder [address] (Radiology), [address] [place] [address] [place], [address], 05/24/2024 18:02:43 Medication Orders cyclobenz aprine 10 mg tablet 2023 024 [facility], [address] [place], [address], 05/14/2024 09:46:18 clonidine HCl 0.1 mg tablet 2023 024 [facility], [address] [place], [address], 05/14/2024 09:57:26 Patient TargetsNo targets recorded. Patient InstructionsNo instructions recorded. Reason for Referral None Reported. Results Created Date Observation Date Name Description Value Unit Range Abnormal Flag Note LastModifiedBy Organization Detail LastModifiedTime 05/20/20 24 05/20/2024 x-ray imagi ng repor t Patien t Name: Shobha Ramírez Unit #: [id number] Loc: DI Orderi ng Provid er: Lulu Ashby rn Accoun t #: [id number] Status : REG CLI Primar y [...] g was perfor med. Five views. COMPAR ISAÍAS: CR XR SHOULD ER LT COMPLE TE 2+V from 2018 FINDIN GS: BONES: No acute fractu re is presen t. No bony destru ctive lesion is seen. JOINTS : No disloc ation presen t. During at AC joint and glenoi d. The glenoh umeral bartolo l joint space is mainta ined. SOFT TISSUE : Normal . IMPRES ESTHER: Degene rative change s of the AC joint and glenoh umeral joint. DATA REPOSI TORY: RADIAT ION DOSE DELIVE RED: Ordere d By: Lulu Ashby rn CC: ------ ------ ------ ------ ------ ------ ------ ------ ------ ------ ------ ------ - Dictat ed By: Danny Salvador [phone] Transc ribed By: Elizabeth Palacios 1415 This is privil eged, confid ential inform ation intend ed only for the provid er named. Any use or distri bution by any person other than this provid er is strict ly prohib ited. If you receiv e this report in error, please notify us immedi ately at [phone] and return the origin al report to us at the addres s above. Thank- you. [email or web address] [facility] [address], [place], [address] 05/24/2024 18:02:22 05/20/20 24 05/20/2024 x-ray imagi ng repor t Patien t Name: Shobha Ramírez Unit #: [id number] Loc: DI Orderi ng Provid er: Symone phillip,Lulu VALLE Accoun t #: [id number] Status : REG CLI Primar y Care Provid er: Symone phillip,Lulu VALLE Date of Exa m: Sex: F Admiss ion Date: : 1959 Age: 64 Exam(s ) XR CERVIC AL SPINE COMP 4-5V EXAM: XR CERVIC AL SPINE COMP 4-5V CLINIC AL HISTOR Y: Cervic algia, M54.2. TECHNI QUE: 2D digita l imagin g was perfor med. Five views were perfor med. COMPAR ISAÍAS: CR XR cervic al spine comp 4-5V [...] . The lung apices are clear. IMPRES ESTHER: Bilate ral neural narrow ing at C3-4 and C4-5, right greate r than left second zabrina to promin ent facet joint encroa chment . DATA REPOSI TORY: RADIAT ION DOSE DELIVE RED: Ordere d By: Symone phillip,Lulu VALLE CC: ------ ------ ------ ------ ------ ------ ------ ------ ------ ------ ------ ------ - Dictat ed By: Danny Salvador 1417 Transc ribed By: Elizabeth Palacios 1417 This is privil eged, confid ential inform ation intend ed only for the provid er named. Any use or distri bution by any person other than this provid er is strict ly prohib ited. If you receiv e this report in error, please notify us immedi ately at [phone] and return the origin al report to us at the addres s above. Thank- you. [email or web address] [facility] [address], [place], [address] 05/24/2024 18:02:22 05/28/20 24 05/28/2024 CT imagi ng sheeba morales Name: Shobha Ramírez Unit #: [id number] Loc: DI Orderi ng Provid er: Shoaib whitney,Agnes helton Accoun t #: [id number] Status : REG CLI Primar y Care Provid er: Symone phillip,Lulu VALLE Date of Exa m: Sex: F : 1959 Age: 64 Exam(s ) a CT:CT head wo Exam(s ) CT HEAD WO EXAM: CT HEAD WO CLINIC AL HISTOR Y: memory change s,? stroke , mass,M ELKE DEFICI T,R41. 3. TECHNI QUE: Imagin g Protoc ol: Axial comput ed tomogr aphy images with gambino l and sagitt al reform atted images were create d and review ed COMPAR ISAÍAS: CT HEAD WITH/W ITHOUT CONTRA ST from [...] ns. No signif icant atroph y. IMPRES ESTHER: No acute intrac ranial findin gs on this noninf used CT scan of the brain. RADIAT ION DOSE DELIVE RED: 862.74 mGy.cm Total DLP DATA REPOSI TORY: All CT scans at this facili ty are submit [place] to the [facility] al Radiol ogy Data Regist ry (NRDR) [...] to clinic al indica tion); or iterat nancy recons tructi on. 1231-0 008: Total DLP = 0.00 mGy-cm Ordere d By: Agnes Howell CC: ------ ------ ------ ------ ------ ------ ------ ------ ------ ------ ------ ------ ---- Dictat ed By: Andrea Moseley M.D. 910 Transc ribed By: Pradip LUNDY,Danny head 910 This is privil eged, confid ential inform ation intend ed only for the provid er named. Any use or distri bution by any person other than this provid er is strict ly prohib ited. If you receiv e this report in error, please notify us immedi radhaly at [phone] and return the origin al report to us at the addres s above. Thank- you. INTERFACE [place] [id number], [place], [address] 05/28/2024 09:26:53 Result Notes None recorded. Problems Name Problem SNOMED Code Status Onset Date Resolution Date Notes Provider Name and Address Organization Details Recorded Time Obesity 534823550 Active 2010 Problem Code: E66.9; Problem Code Type: ICD-10; Not Available [facility] 3 04:09:32 Chronic alcoholi sm in formerly [facility] n 676644906 Active 2010 Problem Code: F10.21; Problem Code Type: ICD-10; Not Available [facility] 3 04:09:32 Gastroes ophageal reflux disease without esophagi tis 709661394 Active 201011/27/19 21 - Comments only - Shashi Farris PA-C - Patient encourag ed to on PROTONIX 40mg QD. Problem Code: K21.9; Problem Code Type: ICD-10; Not Available [facility] 3 04:09:32 Hyperlip idemia 11119173 Active 201011/18/19 17 - Comments only - Shashi Farris PA-C - D/C from statin therapy since May due to elevated CPK. Will repeat lipid profile today as monitori ng. Problem Code: E78.5; Problem Code Type: ICD-10; Not Available [facility] 3 04:09:32 Bipolar disorder 32536118 Active 201008/10/19 23 - Comments only - Shashi Farris PA-C - Well establis hed with [facility]. To continue on current treatmen t regimen (WELLBUT RIN, VYVANSE, ATIVAN, L-METHYL FOLATE, NAC, VITAMIN D) as RXd by speciali ty service provider Problem Code: F31.9; Problem Code Type: ICD-10; Not Available [facility] 3 04:09:32 Iron deficien cy anemia 47559339 Active 2010 Problem Code: D50.9; Problem Code Type: ICD-10; Not Available [facility] 3 04:09:32 Acquired absence of cervix and uterus 586428908 Active 2011 Problem Code: Z90.710; Problem Code Type: ICD-10; Not Available [facility] 3 04:09:32 Menbabar griggs present 119046206 Active 201008/10/19 23 - Comments only - Shashi Farris PA-C - Will re-evalu ated patient interest in HRT with future visits. Problem Code: Z78.0; Problem Code Type: ICD-10; Not Available [facility] 3 04:09:32 Knee joint prosthes is present 95303200573 2 Active 201212/03/19 16 - Comments only - Shashi Farris PA-C - Order for annual ortho recheck initiate d in EMR. Problem Code: Z96.653; Problem Code Type: ICD-10; Not Available [facility] 3 04:09:32 Edema 997665197 Active 201411/27/19 21 - Comments only - Shashi Farris PA-C - As per patient request, will initiate process for replacem ent of compress ion stocking s via local provider . Problem Code: R60.9; Problem Code Type: ICD-10; Not Available [facility] 3 04:09:33 Irritabl e bowel syndrome characte rized by constipa tion 235550953 Active 201402/19/20 19 - Comments only - Shashi Farris PA-C - Establis hed with [facility] gastroen terology . To continue on PROTONIX , AMITIZA, and MIRALAX/ PERICOLA CE PRN as RXd by specialt y service provider . Problem Code: K58.1; Problem Code Type: ICD-10; Not Available [facility] 3 04:09:33 Chronic sinusiti s 70776489 Completed 201403/03/2015 02/20/20 15 - Comments only - Shashi Farris PA-C - Will treat with RXd ZITHROMA X as ZPAK and PREDNISO NE 40mg QD x 5d. Ok to suppleme nt with PROAIR and/or TESSALON PERLES as needed. Problem Code: J32.9; Problem Code Type: ICD-10; Not Available [facility] 3 04:09:33 Acute bronchit is 44618922 Completed 201403/03/2015 Problem Code: J20.9; Problem Code Type: ICD-10; Not Available [facility] 3 04:09:33 Adult health examinat ion Active 201405/14/20 19 - Comments only - Shashi Farris PA-C - STI screenin g complete d today. Patient received flu vaccine through local pharmacy earlier in season. Problem Code: Z00.00; Problem Code Type: ICD-10; Not Available [facility] 3 04:09:33 Low back pain 113033159 Active 201406/02/19 22 - Comments only - Shashi Farris PA-C - Treated with TORADOL 60mg IM today, which Shobha agrees to follow with RXd TORADOL 10mg PO Q 6h PRN (to replace IBUPROFE N). She will otherwis e continue to follow with PT for guided rehab as schedule d. Problem Code: M54.5; Problem Code Type: ICD-10; Not Available [facility] 3 04:09:33 Snoring 72701673 Active 201505/09/20 16 - Comments only - Shashi Farris PA-C - Patient to f/u as schedule d for formal sleep study via [facility]. Problem Code: R06.83; Problem Code Type: ICD-10; Not Available [facility] 3 04:09:33 Acute vaginiti s 54100733 Completed 201512/07/2015 12/03/19 16 - Comments only - Shashi Farris PA-C - Will await results of today's collecte d VPS to r/o for acute vaginal infectio n. Regardle ss of findings , however, in an effort to reduce patient reported sxs of vaginal dryness, will increase PREMARIN to 0.9mg QD as trial. Problem Code: N76.0; Problem Code Type: ICD-10; Not Available [facility] 3 04:09:33 Attentio n deficit hyperact ivity disorder 798700328 Active 201509/07/19 23 - Comments only - Shashi Farris PA-C - - MDD, ANXIETY, PTSD, ADHD Well establis hed with [facility]. Encourag ed to re-engag e with communit [...] F90.9; Problem Code Type: ICD-10; Not Available [facility] 3 04:09:34 Fitting of hearing aid Completed 201611/09/2016 Problem Code: Z46.1; Problem Code Type: ICD-10; Not Available [facility] 3 04:09:34 Bilatera l hearing loss 72047960 Active 2016 Problem Code: H91.8x3; Problem Code Type: ICD-10; Not Available [facility] 3 04:09:34 Vitreous opacitie s 928966277 Completed 201602/21/2017 Problem Code: H43.399; Problem Code Type: ICD-10; Not Available [facility] 3 04:09:34 External hearing aid in situ 756551358 Completed 201605/23/2017 Problem Code: Z97.4; Problem Code Type: ICD-10; Not Available [facility] 3 04:09:34 Pain in left foot 25561800987 9107 Completed 201605/23/2017 Problem Code: M79.672; Problem Code Type: ICD-10; Not Available [facility] 3 04:09:34 Malaise 253515373 Completed 201605/23/2017 Problem Code: R53.81; Problem Code Type: ICD-10; Not Available [facility] 3 04:09:34 Fibromya lgia 524357055 Active 201602/19/20 19 - Comments only - Shashi Farris PA-C - Patient opting to hold off on return to PT and/or pursuing MRI to guide [facility] refer for the time being. She agrees to reconsid er for these more advanced treatmen t interven tions with AE this winter. Problem Code: M79.7; Problem Code Type: ICD-10; Not Available [facility] 3 04:09:35 Trochant mango bursitis of left hip 46510644690 9103 Completed 201709/20/2017 09/07/19 18 - Comments only - Shashi Farris PA-C - Will initiate refer to ortho ([facility]) for consider ation towards injectio n. In the interim, to continue on OTC TYLENOL (appropr iate dosing instruct ions reviewed ) PRN for pain. Problem Code: M70.62; Problem Code Type: ICD-10; Not Available [facility] 3 04:09:35 Generali zed enlarged lymph nodes 392839560 Completed 201709/20/2017 09/07/19 18 - Comments only - Shashi Farris PA-C - Will arrange for US imaging via [facility] at next availabl e. Problem Code: R59.1; Problem Code Type: ICD-10; Not Available [facility] 3 04:09:35 Fatigue 55882362 Completed 201701/08/2018 Problem Code: R53.83; Problem Code Type: ICD-10; Not Available [facility] 3 04:09:35 Hand pain 35635383 Completed 201701/08/2018 12/26/19 18 - Comments only - Shashi Farris PA-C - Will consider for RSing rheumato logy consult based upon results of requeste jose d puentes l hand x-rays and laborato ry testing. Problem Code: M79.643; Problem Code Type: ICD-10; Not Available [facility] 3 04:09:35 Infectio n of skin and/or subcutan eous tissue 52715443 Completed 201701/08/2018 12/26/19 18 - Comments only [...] L08.89; Problem Code Type: ICD-10; Not Available [facility] 3 04:09:35 Abnormal findings diagnost ic imaging heart+co ronary circulat 371987654 Active 201702/19/20 19 - Comments only - Shashi Farris PA-C - As per [facility] cardiolo gy, due for repeat echocard iogram 12/2019 Problem Code: R93.1; Problem Code Type: ICD-10; Not Available [facility] 3 04:09:36 Dysphagi a 32997505 Completed 201702/05/2018 01/23/20 18 - Comments only - Shashi Farris PA-C - Will arrange for barium swallow at [facility] at next availabl e. In the interim, Shobha will continue on PROTONIX 40mg QD as RXd. Problem Code: R13.10; Problem Code Type: ICD-10; Not Available [facility] 3 04:09:36 Vitamin D deficien cy 09069143 Active 201701/23/20 18 - Comments only - Shashi Farris PA-C - Patient to begin on VITAMIN D 1000U QD Problem Code: E55.9; Problem Code Type: ICD-10; Not Available [facility] 3 04:09:36 Foot pain 13749829 Completed 201705/08/2018 Problem Code: M79.673; Problem Code Type: ICD-10; Not Available [facility] 3 04:09:36 Hand pain 17469904 Active 201704/24/20 18 - Comments only - Shashi Farris PA-C - Will refer to ortho ([facility]) for consider ation towards joint injectio ns. Problem Code: M79.643; Problem Code Type: ICD-10; Not Available [facility] 3 04:09:36 Cough 06619395 Completed 201807/06/2018 Problem Code: R05; Problem Code Type: ICD-10; Not Available [facility] 3 04:09:36 Left bundle branch block 46820264 Active 201805/14/20 19 - Comments only - Shashi Farris PA-C - - LBBB, VASCULAR HEART DISEASE As per [facility] cardiolo gy, due for repeat echocard iogram 12/2019 Problem Code: I44.7; Problem Code Type: ICD-10; Not Available [facility] 3 04:09:37 Acute sinusiti s 91345895 Completed 201807/06/2018 06/24/19 19 - Comments only - Shashi Farris PA-C - Will treat with RXd AUGMENTI N 500-125m g BID x 10d. OK to continue to suppleme nt with RFd TESSALON PERLES PRN. Problem Code: J01.90; Problem Code Type: ICD-10; Not Available [facility] 3 04:09:37 Mass of neck 175700409 Completed 201808/06/2018 07/23/19 19 - Comments only - Shashi Farris PA-C - Suspect lipoma. As lesion is not currentl y overly botherso me to patient, will hold off on surgical refer for excisona l biopsy. Will continue to monitor for interval change with future visits. Not Available [facility] 3 04:09:37 Headache 40616964 Completed 201808/06/2018 07/23/19 19 - Comments only - Shashi Farris PA-C - After consult with [facility], patient to return to meet with [facility] to assist in on-line ordering of updated glasses. Problem Code: R51; Problem Code Type: ICD-10; Not Available [facility] 3 04:09:37 Neck pain 13685263 Completed 201810/29/2018 Problem Code: M54.2; Problem Code Type: ICD-10; Not Available [facility] 3 04:09:37 Joint pain 44824710 Completed 201810/29/2018 10/16/19 19 - Comments only - Shashi Farris PA-C - Will update C and L spine imaging via [facility] to determin e extent of progress ion of degenera tive arthriti s. May consider for [facility] vs. [facility] refer vs. rheumato logy consult based upon results of same. Problem Code: M25.50; Problem Code Type: ICD-10; Not Available [facility] 3 04:09:38 Disorder of external ear 22740077 Completed 201810/29/2018 10/16/19 19 - Comments only - Shashi Farris PA-C - Treated with ear lavage in-offic e today as reuqeste d by audiolog y Problem Code: H61.899; Problem Code Type: ICD-10; Not Available [facility] 3 04:09:38 Disorder of nasal sinus 6261697 Completed 201803/04/2019 02/19/20 19 - Comments only - Shashi Farris PA-C - Patient reassure d no evidence on today's PX to suggest for bacteria l sinusiti s to warrant ABX treatmen t. Instead, suggeste d for Shobha to resume RFd FLONASE PRN for relief of congesti ve sxs. Not Available [facility] 3 04:09:38 Venereal disease screenin g Completed 201805/28/2019 Problem Code: Z11.3; Problem Code Type: ICD-10; Not Available [facility] 3 04:09:38 Cough 07015499 Active 201901/20/20 22 - Comments only - Shashi Farris PA-C - CHRONIC COUGH, SINUS CONGESTI ON Schedule d for surgical treatmen t interven tion via [facility] 11/12/21. In the interim, patient encourat ed to use SYMBICOR T BID via spacer (agrees to consider PROAIR MDI as rescue with future visits) and ZYRTEC 10mg QD and suppleme nt with FLONASE and RFd TESSALON PERLES PRN. Problem Code: R05; Problem Code Type: ICD-10; Not Available [facility] 3 04:09:38 Upper respirat ory tract infectio n caused by Influenz a virus [id number] 276663 Completed 201908/21/2019 08/12/19 20 - Comments only - Shashi Farris PA-C - Given concern for developi ng secondar y pneumoni a, will cover with DOXYCYCY LINE 100mg BID. Addition ally, will replace TESSALON PERLES with RXd ROBITUSS IN AC PRN for severe cough. We have arranged for Shobha to return to [facility] for medical recheck upon completi on of ABX treatmen t, however, certainl y she understa nds to reach out to provider vs. local ED with any problems or concerns for symptoma tic escalati on in the interim. Problem Code: J10.1; Problem Code Type: ICD-10; Not Available [facility] 3 04:09:39 Seasonal allergic rhinitis 315056964 Completed 201912/17/2019 12/03/19 20 - Comments only - Shashi Farris PA-C - Having failed antihist amines (ZYRTEC, CLARITIN ), patient agrees to trial RXd SINGULAI R 10mg QD, which may have some positive pulmonar y effect. Problem Code: J30.2; Problem Code Type: ICD-10; Not Available [facility] 3 04:09:39 Elevated blood-pr essure reading without diagnosi s of hyperten esther 414846741 Completed 201902/07/2020 01/24/20 20 - Comments only - Shashi Farris PA-C - Today's BP up. Review of EMR suggests 150/90 on 12/03/19 and 134/78 on 08/20/19. Given potentia l for this to influenc e RXing of stimulan t therapy, will continue to monitor closely with future vistis. Problem Code: R03.0; Problem Code Type: ICD-10; Not Available [facility] 3 04:09:39 Dyspnea 967998383 Active 201909/15/19 22 - Comments only - Shashi Farris PA-C - Patient poorly motivate d towards using inhaled therapie s on a more consiste nt basis. She is agreeabl e, however, to use FLONASE PRN. Problem Code: R06.00; Problem Code Type: ICD-10; Not Available [facility] 3 04:09:39 Lumbosac ral radiculo syed 8482409 Completed 201903/23/2020 03/09/20 20 - Comments only - Shashi Farris PA-C - Suspect L5-S1 discogen ic process. After reviewin g various treatmen t options, Shobha is agreeabl e to move forward with IM TORADOL injectio n today. She will call [facility] tomorrow for status update - if with good response to injectio n, will advance with RX TORADOL 10mg PO Q6h PRN (#20 with no RFs) as alternat nancy to IBUPROFE N; if with no signfica nt relief with today's injectio n, will consider MEDROL DOSEPAK as alternat nancy. Addition ally, will maintain low index for refer to PT for guided rehab should sxs prove ongoing. Problem Code: M54.16; Problem Code Type: ICD-10; Not Available [facility] 3 04:09:39 Elevated blood-pr essure reading without diagnosi s of hyperten esther 938299295 Completed 201904/21/2020 04/07/20 20 - Comments only - Shashi Farris PA-C - Today's BP remains elevated . Shobha is quite reluctan t to begin on addition al pharmaco logic therapie s at this time. Instead, she would prefer to focus efforts on lifestyl e modicati on for weight loss. Will refer to [facility] Walking [facility] as above. Problem Code: R03.0; Problem Code Type: ICD-10; Not Available [facility] 3 04:09:40 Elevated blood-pr essure reading without diagnosi s of hyperten esther 784073546 Active 202009/07/19 23 - Comments only - Shashi Farris PA-C - - HTN Improved on SPIRONOL ACTONE 25mg QD. Unless with evidence on today's laborato ry testing for this therapy has contribu ting to electrol yte disturba nce, to continue with same. Problem Code: R03.0; Problem Code Type: ICD-10; Not Available [facility] 3 04:09:40 Prediabe jenna 246915218 Active 201809/07/19 23 - Comments only - Shashi Farris PA-C - Repeat A1C collecte d today as monitori ng Problem Code: R73.03; Problem Code Type: ICD-10; Not Available [facility] 3 04:09:40 Bilatera l tinnitus 86719452064 02 Active 2020 Problem Code: H93.13; Problem Code Type: ICD-10; Not Available [facility] 3 04:09:40 Left lower quadrant pain 257754871 Completed 202010/23/2020 Problem Code: R10.32; Problem Code Type: ICD-10; Not Available [facility] 3 04:09:41 Increase d frequenc y of urinatio n 269119576 Completed 202010/30/2020 Problem Code: R35.0; Problem Code Type: ICD-10; Not Available [facility] 3 04:09:41 Severe recurren t major depressi on without psychoti c features 84968262 Active 202009/15/19 22 - Comments only - Shashi Farris PA-C - Patient encourag ed to advance discussi on with [facility] provider at next visit re: sleep issues and acute panic sxs. ?role for QHS +/- PRN dosing of benzodia zepine therapy for manageme nt, as ATIVAN seems to be one of the few medicati ons that patient tolerate s without issue. Problem Code: F33.2; Problem Code Type: ICD-10; Not Available [facility] 3 04:09:41 Cellulit is of right upper limb 39747120013 086704 Completed 202012/09/2020 11/27/19 21 - Comments only - Shashi Farris PA-C - Will treat with RXd AUGMENTI N 5000-125 mg BID x 7d. Patient agrees to continue to wash daily with soap and water and monitor closely for signs of progress nancy infectio n (streaki ng, drainage , fever) Problem Code: L03.113; Problem Code Type: ICD-10; Not Available [facility] 3 04:09:42 Dizzines s and giddines s 608425010 Active 2020 Problem Code: R42; Problem Code Type: ICD-10; Not Available [facility] 3 04:09:42 Acute bronchit is 32219290 Completed 202108/20/2021 08/07/19 22 - Comments only [...] J20.8; Problem Code Type: ICD-10; Not Available [facility] 3 04:09:42 COVID-19 178466776 Active 202108/31/19 22 - Comments only - Shashi Farris PA-C - As per patient request, rapid COVID testing complete d today, which returned NEGATIVE to suggest Shobha is no longer in transmis sable stage of infectio n. Will cover for ?seconda ry sinusiti s and herpes labialis with RXd AMOXIL 500mg BID x 10d and VALTREX 2g Q12h x 2 respecti vely. Shobha agrees to return to [facility] in 2 weeks for medical recheck as monitori ng, however, certainl y she understa nds she is to reach out more acutely with problems or concerns for symptoma tic escalati on in the interim. Problem Code: U07.1; Problem Code Type: ICD-10; Not Available [facility] 3 04:09:42 Follicul ar cysts of skin and subcutan eous tissue 359787927 Completed 202109/13/2021 08/31/19 22 - Comments only - Shashi Farris PA-C - Will refer to ENT/plas tic surgery for consult for excision al procedur e. Problem Code: L72.9; Problem Code Type: ICD-10; Not Available [facility] 3 04:09:42 Eczema 23480660 Completed 202109/28/2021 09/15/19 22 - Comments only [...] L30.9; Problem Code Type: ICD-10; Not Available [facility] 3 04:09:43 Pain in thoracic spine 569788747 Active 202101/20/20 22 - Comments only - [...] M54.9; Problem Code Type: ICD-10; Not Available [facility] 3 04:09:43 Disorder of nasal sinus 6795036 Completed 202104/29/2022 Not Available [facility] 3 04:09:43 Chronic rhinitis 98608620 Active 202209/07/19 23 - Comments only - Shashi Farris PA-C - - CHRONIC COUGH, SINUS CONGESTI ON Patient reminded that, without RSing for sinus surgery through [facility], we may have some difficul ty in gaining full control of chronic congesti ve sxs. She does not feel in a position to pursue this presentl y, however. As such, she may continue on ADVAIR HFA and ZYRTEC 10mg QD and suppleme nt with FLONASE and RFd TESSALON PERLES PRN. Problem Code: J31.0; Problem Code Type: ICD-10; Not Available [facility] 3 04:09:44 Screenin g mammogra phy Active 2022 Problem Code: Z12.31; Problem Code Type: ICD-10; Not Available [facility] 3 04:09:44 Hypergly cemia 85667999 Completed 201802/22/2023 Problem Code: R73.9; Problem Code Type: ICD-10; Not Available [facility] 3 04:09:44 Iron deficien cy anemia 31400856 Completed 201011/03/2014 Problem Code: 280.9; Problem Code Type: ICD-9; Not Available [facility] 3 04:09:45 Urinary incontin ence 355972745 Completed 201007/20/2020 Problem Code: R32; Problem Code Type: ICD-10; Not Available [facility] 3 04:09:45 Hearing loss 69484817 Completed 202011/10/2020 Problem Code: H91.90; Problem Code Type: ICD-10; Not Available [facility] 3 04:09:45 Constipa tion 90790508 Completed 201601/22/2018 Problem Code: K59.09; Problem Code Type: ICD-10; Not Available [facility] 3 04:09:45 Muscle pain 68890078 Completed 201502/07/2017 Problem Code: M79.1; Problem Code Type: ICD-10; Not Available [facility] 3 04:09:46 Medial epicondy litis 05144718 Completed 201512/25/2017 Problem Code: M77.00; Problem Code Type: ICD-10; Not Available [facility] 3 04:09:46 Hypothyr oidism 80009039 Completed 201407/20/2020 Problem Code: E03.9; Problem Code Type: ICD-10; Not Available [facility] 3 04:09:47 Muscle atrophy 13203644 Completed 201502/07/2017 Problem Code: N81.84; Problem Code Type: ICD-10; Not Available [facility] 3 04:09:47 Illitera te literacy level 603860141 Completed 201002/22/2023 Not Available [facility] 3 04:09:47 Hysterec ward Completed 201006/23/2015 Not Available [facility] 3 04:09:48 Constipa tion 97819397 Completed 201402/22/2023 11/18/19 17 - Comments only - Shashi Farris PA-C - To continue on RFd COLACE +/- MIRALAX PRN. Problem Code: K59.00; Problem Code Type: ICD-10; Not Available [facility] 3 04:09:48 Arthralg ia of the ankle and/or foot 477095325 Completed 201502/07/2017 Problem Code: M25.571; Problem Code Type: ICD-10; Not Available [facility] 3 04:09:48 Headache 57235394 Completed 201502/07/2017 Problem Code: R51; Problem Code Type: ICD-10; Not Available [facility] 3 04:09:48 Mixed urinary incontin ence 309203215 Completed 201002/22/2023 Problem Code: 788.33; Problem Code Type: ICD-9; Not Available [facility] 3 04:09:49 Joint pain 15222787 Completed 201602/22/2023 04/24/20 18 - Comments only - Shashi Farris PA-C - To continue on LYRICA 50mg; titrate to BID as tolerate d. Problem Code: M25.50; Problem Code Type: ICD-10; Not Available [facility] 3 04:09:49 High risk heterose xual behavior 14387784156 9101 Completed 201502/07/2017 Problem Code: Z72.51; Problem Code Type: ICD-10; Not Available [facility] 3 04:09:49 Pain in right arm 962021517 Completed 201612/25/2017 Problem Code: M79.601; Problem Code Type: ICD-10; Not Available [facility] 3 04:09:50 Nondepen dent alcohol abuse in jg n 928415657 Completed 201002/22/2023 Problem Code: 305.03; Problem Code Type: ICD-9; Not Available [facility] 3 04:09:50 Gastroes ophageal reflux disease 508113503 Completed 201002/22/2023 Not Available [facility] 3 04:09:50 Pain of right wrist 03164582248 9100 Completed 201602/07/2017 Problem Code: M25.531; Problem Code Type: ICD-10; Not Available [facility] 3 04:09:51 General examinat ion of patient Completed 201712/25/2017 Problem Code: Z00.8; Problem Code Type: ICD-10; Not Available [facility] 3 04:09:51 Disorder of skin and/or subcutan eous tissue 59245648 Completed 201612/25/2017 Problem Code: L98.9; Problem Code Type: ICD-10; Not Available [facility] 3 04:09:51 Acute upper respirat ory infectio n 80267100 Completed 201901/24/2020 Problem Code: J06.9; Problem Code Type: ICD-10; Not Available [facility] 3 04:09:52 Non-toxi c uninodul ar goiter 486528201 Completed 201404/12/2015 Problem Code: E04.1; Problem Code Type: ICD-10; Not Available [facility] 3 04:09:52 Pain in bilatera l legs 25379822239 542409 Active [address], [place], [address] , [facility]. 4 18:12:59 Notes:*Problem Name: Illiter ate *ICD-10 [...] Recorded Time 08/05/19 12 Total hysterectomy completed [facility] 05/28/2024 14:37:01 Imaging Results None recorded. Procedure Notes None recorded. Medical Equipment None Reported. Allergies Allergen ID Allergen Name Allergen Category Reaction Reaction Severity Criticality Documentation Date Start Date Code Code System Note Provider Name and Address Organization Details Recorded Time 99720 oxycodone hydrochlo ride medicatio n itching moderate Not available 04/07/20232012 76502 RxNorm Itchy Aller gyRea ction : 'Itch y'; Not Available [facility] 16:29:19 Medications Name Sig Start Date Stop [...] propranol ol 10 mg tablet 06/13 completed [facility] Not Available Not Available Not Available [...] 25 mg tablet 09/[address]Moone moore [facility] Not Available Not Available Not Available Tylenol 500 mg tablet TAKE 1-2 Q 6 H PRN 05/14 completed Not Available Not Available Not Available levothyro xine 50 mcg tablet Take 1 by mouth daily 12/25 completed [facility] Not Available Not Available Not Available pantopraz [...] capsule 1 PO once daily 06/13 completed [facility] Not Available Not Available [...] Updated DateTime 4 163.5 cm 34.7 kg/m2 05373.6 4 g 97.1 [degF] 97 % 97 % 54 /min 16 /min 130 mm[Hg] 70 mm[Hg] Lida Felder RN [facility] 09:23:57 Social History Question Answer Notes LastModified by Organizat ion Details LastModified Time Tobacco Smoking Status Never Smoker KEMAL MARTIN, [facility] 06/13/2023 11:11:54 What Was The Date Of Your Most Recent Tobacco Screening? 02/02/2024 [email or web address] Information not available 02/02/2024 Has Tobacco Cessation Counseling Been Provided? Yes [email or web address] Information not available 02/02/2024 On What Date Was Tobacco Cessation Counseling Provided? 02/02/2024 [email or web address] Information not available 02/02/2024 Do You Or [...] Time Tdap [address], [place], [address], [facility]. 08/08/2023 10:01:04 Tdap 4 completed Not Available [facility] 04/07/2023 05:01:19 Tdap 0 completed Not Available [facility] 04/07/2023 05:01:19 Td(adult) unspecified formulation 1 completed Not Available [facility] 04/07/2023 05:01:19 Influenza, split virus, trivalent, PF 6 completed Not Available [facility] 04/07/2023 05:01:19 Influenza, split virus, trivalent, preservative 8 completed Not Available [facility] 04/07/2023 05:01:20 Influenza, split virus, quadrivalent, PF 1 completed Not Available [facility] 04/07/2023 05:01:20 Influenza, split virus, quadrivalent, PF 2 completed Not Available [facility] 04/07/2023 05:01:20 zoster recombinant 8 completed Not Available [facility] 04/07/2023 05:01:20 zoster recombinant 8 completed Not Available [facility] 04/07/2023 05:01:20 zoster recombinant 8 completed Not Available [facility] 04/07/2023 05:01:20 COVID-19, mRNA, LNP-S, PF, 100 mcg/0.5mL dose or 50 mcg/0.25mL dose 1 completed Not Available [facility] 04/07/2023 05:01:21 COVID-19, mRNA, LNP-S, PF, 100 mcg/0.5mL dose or 50 mcg/0.25mL dose 1 completed Not Available [facility] 04/07/2023 05:01:21 COVID-19, mRNA, LNP-S, PF, 100 mcg/0.5mL dose or 50 mcg/0.25mL dose 1 completed Not Available [facility] 04/07/2023 05:01:21 SARS-COV-2 (COVID-19) vaccine, UNSPECIFIED 2 completed Not Available [facility] 04/07/2023 05:01:21 COVID-19, mRNA, LNP-S, bivalent, PF, 30 mcg/0.3 mL dose 2 completed Not Available [facility] 04/07/2023 05:01:21 pneumococcal polysaccharide PPV23 5 completed Not Available [facility] 04/07/2023 05:01:21 pneumococcal polysaccharide PPV23 1 completed Not Available [facility] 04/07/2023 05:01:22 influenza, unspecified formulation 5 completed Not Available [facility] 04/07/2023 05:01:22 influenza, unspecified formulation 7 completed Not Available [facility] 04/07/2023 05:01:22 influenza, unspecified formulation 6 completed Not Available [facility] 04/07/2023 05:01:22 influenza, unspecified formulation 0 completed Not Available [facility] 04/07/2023 05:01:22 Influenza, split virus, trivalent, PF [address], [place], [address], [facility] 03/12/2024 16:06:12 COVID-19, mRNA, LNP-S, PF, kurt-sucrose, 30 mcg/0.3 mL [address], [place], [address], [facility] 03/12/2024 16:06:12 Influenza, split virus, quadrivalent, PF 3 completed Not Available [facility] 06/09/2023 05:31:10 COVID-19, mRNA, LNP-S, PF, kurt-sucrose, 30 mcg/0.3 mL 3 completed Not Available [facility] 06/09/2023 05:31:11 Past Encounters Encounter ID Performer Location Encounter Start Date Encounter Closed Date Diagnosis/Indication Diagnosis SNOMED-CT Code Diagnosis ICD10 Code Diagnosis Note [id number] SHASHI FARRIS PA-C [address] [address] 05/14/2024 08:30:11 05/14/2024 10:11:35 Neck pain 45463361 M54.2 Suspect cervical radiculiti s +/- associated muscle tension/sp asm. As such, while awaiting results of today's requested c-spine and right shoulder x-rays, OK to begin on RXd FLEXERIL 10mg QHS PRN as supplement to routinely RXd CELEBREX 400mg QD. Pain of ri ght shoulder joint [id number] 4826041 M25.511 As above. Essential hypertension 92974521 I10 Today's BP suggests fair control on RFd CLONIDINE 0.1mg QHS (historica lly failed SPIRONOLAC TONE, LISINOPRIL , LOSARTAN, NORVASC, PROPRANOLO L due to ASE) Prediabetes 278435720 R7 3.03 Last A1C WNLs on METFORMIN XR 250mg QD. Will continue to monitor Major depr ession, single episode [id number] F32.9 Followed by [facility]. To continue on ZOLOFT and VYVANSE 50mg QD as RXd by specialty service provider. Varicose v eins of lower extremity 17731043 I83.893 Recent doppler US (02/08/24) NEGATIVE for DVT. Patient encouraged to reach out to DME supplier in [place] re: status of previously requested replacemen t compressio n stockings. Health Concerns Section Related Observation LastModified by Organization Detai ls LastModified Time None Recorded Concern Status LastModified by Organization Details LastModified Time None Recorded Payers Encounter Date Sequence Insurance Name Policy Number Policy Roberts Covered Member ID Roberts Member ID Guarantor Name 05/14/2024 1 [facility] (MEDICAID) Shobha Ramírez [id number] Shobha Ramírez Notes Date Note Type Note Provider Name and Address Organization Details Recorded Time 05/14/2024 text/html 64y/o female presenting for f/u HTN, preDM, anxiety/mood disorder, and chronic pain. [address], [place], [address], [facility]. 05/14/2024 10:34:46 OBGyn Episode No OBEpisode recorded.
--- OUTSIDE RECORDS SUMMARY | 2024-07-04 00:33 | XMS_ITS | Encounter Summary ---
Author Organization [facility] [place] [address] Care Team Providers Care Central Supply Clerk Name Role Phone Shashi Verma Primary Care Provider +1- [phone] Reason for Visit * Reason Onset Date Comments Medication Refill 12/05/2018 Encounter Details Date Type Department Care Team (Late st Contact Info) Description 12/05/2018 Telephone [place] [phone] Cici Tanner CMA Medication Refill Social History Tobacco Use Types [...] on filedocumented in this encounter Care Teams Central Supply Clerk Relationship Specialty Start Date End Date Shashi Verma PA [address] [place] [address] PCP - General Family Medicine 04/06/16 01/14/20 documented as of this encounter
--- OUTSIDE RECORDS SUMMARY | 2024-07-04 00:33 | XMS_ITS | Encounter Summary ---
Author Organization [facility] [place] [address] Care Team Providers Care Newborn Photographer Name Role Phone Shashi Verma Primary Care Provider +1- [phone] Encounter Details Date Type Department Care Team (Late st Contact Info) Description 05/15/2019 [place] [phone] Peace García Social History Tobacco Use Types [...] on filedocumented in this encounter Care Teams Newborn Photographer Relationship Specialty Start Date End Date Shashi Verma PA [address] [place] [address] PCP - General Family Medicine 04/06/16 01/14/20 documented as of this encounter
--- OUTSIDE RECORDS SUMMARY | 2024-07-04 00:33 | XMS_ITS | Encounter Summary ---
Author Organization [facility] Address [address] [place] [address] Care Team Providers Care Brace End Mainspring Former Name Role Phone Unknown, Provider Primary Care Provider Unava ilable Encounter Details Date Type Department Care Team (Late st Contact Info) Description 07/21/2005 Results Only [facility] - [facility] [address] [place] [address] Nallely Ferreira MD [address] [place] [id number] Social History Tobacco Use Types Packs/Day Years [...] ? JANICE DÍAZ ? Accession #: ? [id number] ? : ? 1960 (Age: 45) ??F ? Collect Date: ? 07/21/2005 ? Location: ? [facility] ? Receive Date: ? 07/21/2005 ? Provider: NELIDA FERREIRA MD Copy to: NALLELY PEREYRA MD ? Final Pathologic Diagnosis: ? Gastroesophageal junction, biopsy: - Benign reactive squamocolumnar mucosa with acute inflammation. ??See comment. Comment: ? PAS stain is negative for fungal organisms. ??(Patricia Wilcox/[facility] Document reviewed and electronically signed by: [...] is submitted intact in one cassette. (Anjelica Taylor)/[facility] End of Report [facility] 07/21/2005 07/21/2005 15: 17 EST us Nallely Ferreira MD PATHOLOGY ORDERABLES Final Res ult [facility] [address] [place] [address] documented in this encounter Visit Diagnoses Not on filedocumented in this encounter Care Teams Brace End [employer] Former Relationship Specialty Start Date End Date Unknown, Provider, PCP - General 01/21/09 12/26/10 documented as of this encounter
--- OUTSIDE RECORDS SUMMARY | 2024-07-04 00:33 | XMS_ITS | Encounter Summary ---
Author Organization [facility] Address [address] [place] [address] Care Team Providers Care [employer] Executive Director Name Role Phone Unknown, Provider Primary Care Provider Unava ilable Encounter Details Date Type Department Care Team ([facility] st Contact Info) Description 11/07/2006 Results Only [facility] - Maple conversion [address] [place] [address] Torri Castro MD [address] [place] [address] [place] [address] Social History Tobacco Use Types Packs/Day Years [...] ? JANICE DÍAZ ? Accession #: ? [id number] : ? 1960 (Age: 46) ??F ?Collect Date: ? 11/07/2006 Location: ? [facility] ? Receive Date: ? 11/08/2006 Provider: ?TORRI CASTRO MD Copy to: ? Specimen/Source: ?ThinPrep Pap Test, Cervix/Endocervix, processed on Geostellar ThinPrep Imaging System, with manual evaluation Last [...] of Report [facility] 11/07/2006 11/08/2006 us Torri Castro MD PATHOLOGY ORDERABLES Final Resu lt [facility] [address] [place] [address] documented in this encounter Visit Diagnoses Not on filedocumented in this encounter Care Teams [employer] Executive Director Relationship Specialty Start Date End Date Unknown, Provider, PCP - General 01/21/09 12/26/10 documented as of this encounter
--- OUTSIDE RECORDS SUMMARY | 2024-07-04 00:33 | XMS_ITS | Encounter Summary ---
Author Organization [facility] Address [address] [place] [address] Care Team Providers Care Foreclosure Specialist Name Role Phone Unknown, Provider Primary Care Provider Estella robb Encounter Details Date Type Department Care Team (Late st Contact Info) Description 12/23/2010 Results Only [facility] [address] [place], [place] [id number] Mckayla Valdovinos MD [address] [facility] [place] [address] Social History Tobacco Use Types [...] ? JANICE DÍAZ ? Accession #: ? [id number] ? : ? 1960 (Age: 50) ??F ? Collect Date: ? 12/23/2010 ? Location: ? [facility] ? Receive Date: ? 12/24/2010 ? Provider: MCKAYLA VALDOVINOS MD ? Copy to: DEREK RODGERS MD ? Final Pathologic Diagnosis: ? Endometrium, [...] Gross Description: ? Received in formalin labelled Darrell, Janice and endometrium is a 2.0 x 1.5 x 0.2 cm aggregate of briones-red tissue fragments admixed with mucus. ??The ? specimen is filtered and entirely submitted in a single cassette. ??(L. ? Vega)/ljn ? End of Report ? [facility] 12/23/2010 12/24/2010 9:1 8 EDT us Mckayla Valdovinos MD PATHOLOGY ORDERABLES Final Re sult [facility] [address] [place] [address] documented in this encounter Visit Diagnoses Not on filedocumented in this encounter Care Teams Foreclosure Specialist Relationship Specialty Start Date End Date Unknown, Provider, PCP - General 01/21/09 12/26/10 documented as of this encounter
--- OUTSIDE RECORDS SUMMARY | 2024-07-04 00:33 | XMS_ITS | Clinical Summary ---
[facility] [place] [address] Care Team Providers Care Retail Supervisor Name Role Phone Unknown Primary Care Provider [...] daily. Active fluticasone propionate (FLONASE) 50 mcg/actuation [place], Suspension 1 spray daily. Act nancy docusate [...] Next Due Influenza Vaccine, Whole 03/13/2006,03/22/2005 Pneumococcal 23-Valent Polysaccharide (Pneumovax 23) 03/29/2011,02/07/2005 Td Adult (not absorbed) 08/24/2000 Family History Medical History Relation Comments [...] HIV screen 02/02/1980 Hepatitis C Screening 02/02/1980 HPV test 02/02/1992 PAP Smear 02/02/1992 Tetanus/Diphtheria/Pertussis Vaccines (1 - Tdap) 08/25/2000 08/24/2000 Breast Cancer Share Decision Needed 2002 Breast Cancer screening 2002 Zoster vaccine (1 of 2) 02/02/2012 Pneumoccocal Vaccine: 50+ (2 of 2 - PCV) 03/29/2012 03/29/2011, 02/07/2005 Advance Directive 2017 Covid-19 Vaccine (1 - season) 2024 Influenza (Flu) vaccine (1 o f 1 - Influenza standard series) 01/28/2024 03/13/2006, 03/22/2005 Diabetes Screening (HgbA1C or Glucose) Discontinued Medical Devices Implanted Type Area Busser Device Identifier Shelf Expiration Date Model / Serial / Lot Sling,Chanelle, Feml,Em Claros ([id number]) - [id number] Implanted:Qty : 1 on 03/28/2011 at [facility] IMPLANTS N/A: Vagina [employer] - [id number] 02/25/2014 [id number]-DS01 / / [id number] Procedures Procedure Name Priority Date/Time Associated Diagnosis Comments COMPREHENSIVE METABOLIC PANEL Routine 08/05/2015 10:29 AM EST RUQ pain from Last 3 Months or Most Recently Relevant to Health Maintenance Results * Comprehensive metabolic panel (non-fasting) (08/05/2015 10:29 AM EST) Glucose 90 65 - 199 mg/dL [facility] Comment:Diabetes: >=200 mg/d L plus symptoms Blood Urea Nitrogen 13 8 - 18 mg/dL [facility] Creatinine 0.74 0.70 - 1.20 mg/dL [facility] Comment: Please note that the pediatric reference intervals supplied above were not validated at [facility]. Results from pediatric patients should be interpreted in conjunction to the patient's age, height and muscle mass. Sodium 140 135 - 145 mmol/L [facility] Potassium 4.4 3.5 - 5.0 mmol/L [facility] Comment: Please note: ??Patients with WBC >100,000 may have falsely elevated Potassium levels. ??For accurate Potassium quantification in these patients send serum separator tube (gold top) for subsequent determinations. ??Contact the Clinical Chemistry Laboratory if there are any questions. Chloride 103 98 - 107 mmol/L [facility] Carbon Dioxide 26 22 - 31 mmol/L [facility] Anion Gap 11 5 - 15 mmol/L [facility] Calcium 9.4 8.5 - 10.5 mg/dL [facility] Protein, Total 7.2 6.1 - 8.0 gm/dL [facility] Albumin 4.5 3.2 - 5.2 gm/dL [facility] Aspartate Aminotransferase 20 0 - 30 unit/L [facility] Alanine Aminotransferase 12 0 - 30 unit/L [facility] Alkaline Phosphatase 72 40 - 104 unit/L [facility] Bilirubin, Total 0.4 0.2 - 1.3 mg/dL [facility] Bilirubin, Direct 0.1 0.0 - 0.3 mg/dL [facility] Est Glomerular Filtration Rate >60 [...] the following links into your internet browser. [email or web address] Blood specimen (specimen) 08/05/2015 10:29 AM EST 08/05/2015 10:42 AM EST Narrative Resulting Agency Comment Spec In Lab Erik Phillips MD CHEMISTRY ORDERABLES [facility] [place] [address] from Last 3 Months or Most Recently [...] is based on Patients wishes. Care Teams Retail Supervisor Relationship Specialty Start Date End Date Unknown None PCP - General 01/15/20
--- OUTSIDE RECORDS SUMMARY | 2024-07-04 00:33 | XMS_ITS | Encounter Summary ---
Author Organization [place] [id number] Care Team Providers Care Flatwork Ironer Name Role Phone Shashi Verma Primary Care Provider [phone]- [phone] Encounter Details Date Type Department Care Team (Late st Contact Info) Description 04/18/2016 6:00 PM EST Tech [place] [address] Erik Phillips MD Chronic constipation Social History Tobacco Use Types [...] 6:00 PM EST HIGH-RESOLUTION ANORECTAL MANOMETRY Shobha Charity [address] [facility] [id number] : 1960 STUDY DATE: 04-18-2016 PROVIDER: Erik Phillips, [place], [place] ([id number]) INDICATION Constipation METHODS Stationary anorectal manometry was performed with the ManoScan 360 (Zuvvu) in a supervised setting after verbal consent. [...] Pressure Differential (mmHg): -148 (normal -30 to >= 0). IMPRESSION 1. Normal anal canal pressures. [...] been ruled out. Erik Phillips, PhD, MD restaurant operations manager, [facility] [employer] Chief, Section of Gastroenterology and Hepatology [facility] [place] [address] V: [phone] F: [phone] CC/EC: PCP documented in this encounter Plan of Treatment Not on file documented as of this encounter Visit Diagnoses Diagnosis Chronic constipation Unspecified constipation documented in this encounter Care Teams Flatwork Ironer Relationship Specialty Start Date End Date Shashi Verma PA [address] [place] [address] PCP - General Family Medicine 04/06/16 01/14/20 documented as of this encounter
--- OUTSIDE RECORDS SUMMARY | 2024-07-04 00:33 | XMS_ITS | Encounter Summary ---
Author Organization [facility] Address [address] [place] [address] Care Team Providers Care Retail Grocer Name Role Phone Gina Morales MD Primary Care Provider [phone] Encounter Details Date Type Department Care Team (Late st Contact Info) Description 05/15/2019 Lab Requisition [facility] Pathology & Laboratory Medicine - [address] [address] Unknown, Provider, Social History Tobacco Use Types [...] Syphilis Serology Negative Negative 05/16/2019 11:34 EST [facility] Blood VENOUS BLOOD / Unknown 05/14/2019 12:10 EST 05/15/2019 15:51 EST us Provider Unknown IMMUNOLOGY AND SEROLOGY VLAD KUMAR Final Result [facility] [address] [place] [address] documented in this encounter Visit Diagnoses Not on filedocumented in this encounter Care Teams Retail Grocer Relationship Specialty Start Date End Date Gina Morales MD [address] [place] [address] PCP - General 04/24/13 documented as of this encounter
--- OUTSIDE RECORDS SUMMARY | 2024-07-04 00:33 | XMS_ITS | Encounter Summary ---
Author Organization [facility] Address [facility] [place] [address] Care Team Providers Care Green Chain Worker Name Role Phone Shashi Verma Primary Care Provider [phone] Reason for Visit * Diagnostic Test (Routine) - Closed Specialty Diagnoses / Procedures Referred By Contac t Referred To Contact Radiology Diagnoses Pelvic floor dysfunction Procedures MRI Pelvis Soft Tissue (Gi Gu Ballet Master/Mistress)WO Contrast MRI Pelvis Soft Tissue (GI BACCARAT DEALER)W Contrast Yossi Morales APRN [facility] GASTROENTEROLOG[place] [address] [place] [address] Referral ID Status Reason Start Date Expiration Date V isits Requested Visits Authorized [id number] Closed Specialty Service Requested 03/28/2018 06/26/2018 2 2 Encounter Details Date Type Department Care Team (Latest Contact Info) Description 04/09/2018 10:10 AM EST - 04/09/2018 11:59 PM [facility] Hospital [place] [address] Yossi Morales [facility] GASTROENTEROLOG[place] [address] Discharge Disposition: Home Social History [...] Diagnosis Comments MRI PELVIS SOFT TISSUE (GI BACCARAT DEALER) WO CONTRAST Routine 04/09/2018 12:49 PM EST Pelvic floor dysfunction documented in this encounter Results * MRI Pelvis Soft Tissue (Gi Gu Ballet Master/Mistress)WO Contrast (04/09/2018 12:49 PM EST) Anatomical Region [...] EST EXAMINATION: MRI PELVIS SOFT TISSUE (GI BACCARAT DEALER) WO CONTRAST CLINICAL HISTORY: with defecography, pelvic [...] 04/09/2018 EXAMINATION: MRI PELVIS SOFT TISSUE (GI BACCARAT DEALER) WO CONTRAST CLINICAL HISTORY: with defecography, pelvic [...] on filedocumented in this encounter Care Teams Green Chain Worker Relationship Specialty Start Date End Date Shashi Verma PA [address] [place] [address] PCP - General Family Medicine 04/06/16 01/14/20 documented as of this encounter
--- OUTSIDE RECORDS SUMMARY | 2024-07-04 00:33 | XMS_ITS | Encounter Summary ---
Author Organization [facility] Address [address] [place] [address] Care Team Providers Care Truckload Owner Operator Name Role Phone Gina Moraels MD Primary Care Provider [phone] Encounter Details Date Type Department Care Team (Late st Contact Info) Description 07/13/2021 Lab Requisition [facility] Pathology & Laboratory Medicine - [address] [id number] Outr Resulting Lab, Provider Social History Tobacco [...] 07/13/2021 11:0 0 EST 07/14/2021 16:06 EST us Provider Outr Resulting Lab MICROBIOLOGY - GENER AL ORDERABLES Final Result [facility] [address] [place] [address] * COVID-19 TESTING (07/13/2021 11:00 EST) COVID-19 rt-PCR Result Negative Negative 07/15/2021 14:18 EST [facility] Comment: This test has [...] performed using the amelie SARS-CoV-2 assay ([employer] on the Amelie 6800 System Performing Lab Amelie [address] [facility] Lab 07/15/2021 14:18 EST [facility] Swab 07/13/2021 11:0 0 EST 07/14/2021 16:06 EST us Provider Outr Resulting Lab MICROBIOLOGY - GENER AL ORDERABLES Final Result [facility] [address] [place] [address] documented in this encounter Visit Diagnoses Not on filedocumented in this encounter Care Teams Truckload Owner Operator Relationship Specialty Start Date End Date Gina Morales MD [address] [place] [address] PCP - General 04/24/13 documented as of this encounter
--- OUTSIDE RECORDS SUMMARY | 2024-07-04 00:33 | XMS_ITS | Encounter Summary ---
Author Organization [facility] [place] [address] Care Team Providers Care User Experience Architect Name Role Phone Shashi Verma Primary Care Provider [phone] Reason for Referral * Diagnostic Test (Routine) - Closed Specialty Diagnoses / Procedures Referred By Contac t Referred To Contact Radiology Diagnoses Pelvic floor dysfunction Procedures MRI Pelvis Soft Tissue (Gi Gu Grain Farmer)WO Contrast MRI Pelvis Soft Tissue (GI ANALYST SALES)W Contrast Yossi Morales APRN [facility] [place] [address] [place] [address] Referral ID Status Reason Start Date Expiration Date V isits Requested Visits Authorized [id number] Closed Specialty Service Requested 03/28/2018 06/26/2018 2 2 Encounter Details Date Type Department Care Team (Late st Contact Info) Description 01/08/2018 12:30 PM EDT Office [place] [address] Yossi Morales APRN [facility] [place] [address] Pelvic floor dysfunction Social History [...] * MRI Pelvis Soft Tissue (Gi Gu Grain Farmer)WO Contrast (04/09/2018 12:49 PM EST) Anatomical Region [...] EST EXAMINATION: MRI PELVIS SOFT TISSUE (GI ANALYST SALES) WO CONTRAST CLINICAL HISTORY: with defecography, pelvic [...] 04/09/2018 EXAMINATION: MRI PELVIS SOFT TISSUE (GI ANALYST SALES) WO CONTRAST CLINICAL HISTORY: with defecography, pelvic [...] Grade III > 6 cm Yossi Morales FIRE LOOKOUT IMG MRI ORDERABLES documented in this encounter Visit Diagnoses Diagnosis Pelvic floor dysfunction Pelvic muscle wasting Pelvic floor dysfunction Pelvic muscle wasting documented in this encounter Care Teams User Experience Architect Relationship Specialty Start Date End Date Shashi Verma PA [address] [place] [address] PCP - General Family Medicine 04/06/16 01/14/20 documented as of this encounter
--- OUTSIDE RECORDS SUMMARY | 2024-07-04 00:33 | XMS_ITS | Encounter Summary ---
Author Organization [facility] Address [facility] [place] [address] Care Team Providers Care Computer Lab Para Professional Name Role Phone Shashi Verma Primary Care Provider [phone] Reason for Referral * Physical Therapy (Routine) - Closed Specialty Diagnoses / Procedures Referred By Contac t Referred To Contact Physical Therapy Diagnoses Dyssynergic defecation Florida Carbajal MD [facility] OBSTETRICS & [place] [address] [facility] [place] [address] Referral ID Status Reason Start Date Expiration Date V isits Requested Visits Authorized [id number] Closed Evaluate and Treat 08/01/2019 07/31/2020 12 12 Reason for Visit * Reason Comments Vaginal Prolapse * Consultation (Routine) - Closed Specialty Diagnoses / Procedures Referred By Contac t Referred To Contact Obstetrics and Gynecology Diagnoses Rectocele, female O'Yossi Newell APRN [facility] GASTROENTEROLOG[place] [address] Casey Velasco MD [facility] OBSTETRICS AND [place] [address] Referral ID Status Reason Start Date Expiration Date V isits Requested Visits Authorized [id number] Closed Consult, Test & Treat 01/03/2019 01/03/2020 1 1 Encounter Details Date Type Department Care Team (Late st Contact Info) Description 08/01/2019 9:30 AM EST Office Visit Obstetrics and Gynecology at [facility] [place] [address] Casey Velasco MD [facility] DR OBSTETRICS AND [place] [address] Dyssynergic defecation; Urge urinary incontinence; Prolapse of [...] Female Pelvic Medicine and Reconstructive Surgery @ [facility] Patient Name: Shobha Ramírez Patient Primary Care [...] Bladder irritants: Fluid intake:32 fluid oz x2 lemon/sac & [place] vit C and richa Caffeine intake: 1-2 [...] W\O PERINEORRHAPHY performed by CASEY VELASCO at [facility] MAIN OR ??? PRO REVAGINAL PROLAPSE, UTEROSACRAL 03/28/2011 COLPOPEXY, VAGINAL, INTRAPERITONEAL APPROACH performed by CASEY VELASCO at [facility] MAIN OR ??? PRO SLING OPER STRES INCONTINENCE 03/28/2011 URETHRAL SUSPENSION, SLING\FASCIA OR SYNTHETIC performed by CASEY VELASCO at [facility] MAIN OR ??? PRO UPPER GI ENDOSCOPY, BIOPSY N/A 09/03/2015 EGD WITH BIOPSY performed by Kain Kimball MD at [facility] ENDOSCOPY ? ? PRO VAGINAL HYSTERECTOMY, UTERUS 250 GMS/< 03/28/2011 HYSTERECTOMY, VAGINAL, <250 GRAMS performed by CASEY VELASCO at [facility] MAIN OR ??? TONSILLECTOMY ??? TUBAL LIGATION OB History Para Term AB Living 5 5 0 0 0 0 SAB TAB Ectopic Multiple Live Births 0 0 0 0 0 # Outcome Date GA Lbr Asad/2nd Weight Sex Delivery Anes PTL Lv 5 [...] file Gets together: Not on file Attends buddhism service: Not on file Active member of [...] dipstick Result Value Ref Range POC Sp [place] 1.002 1.002 - 1.030 POC pH, UA [...] test (empty supine): negative External Genitalia: Vulva, Cactus Forest's and Bartholin glands normal, urethra without tenderness [...] * POCT urine dipstick (08/01/2019) POC Sp [place] 1.002 1.002 - 1.030 POC pH, UA [...] Dyspareunia documented in this encounter Care Teams Computer Lab Para Professional Relationship Specialty Start Date End Date Shashi Verma PA [address] [place] [address] PCP - General Family Medicine 04/06/16 01/14/20 documented as of this encounter
--- OUTSIDE RECORDS SUMMARY | 2024-07-04 00:33 | XMS_ITS | Encounter Summary ---
Author Organization [facility] [place] [address] Care Team Providers Care Houseperson Name Role Phone Shashi Verma Primary Care Provider [phone] Reason for Visit * Reason Onset Date Comments Medication Refill 01/02/2018 Encounter Details Date Type Department Care Team (Late st Contact Info) Description 01/02/2018 Ref[place] [address] Cici Tanner CMA Social History Tobacco Use Types Packs/Day Years [...] on filedocumented in this encounter Care Teams Houseperson Relationship Specialty Start Date End Date Shashi Verma PA [address] [place] [address] PCP - General Family Medicine 04/06/16 01/14/20 documented as of this encounter
--- OUTSIDE RECORDS SUMMARY | 2024-07-04 00:33 | XMS_ITS | Encounter Summary ---
Author Organization [facility] Address [facility] [place] [address] Care Team Providers Care Specialist Managers Name Role Phone Shashi Verma Primary Care Provider +1- [phone] Reason for Visit * Reason Comments Medication Refill Encounter Details Date Type Department Care Team (Late st Contact Info) Description 04/22/2019 Refill [place] [address] Yossi Morales APRN [facility] GASTROENTEROLOG[place] [address] Irritable bowel syndrome with constipation Social History [...] syndrome documented in this encounter Care Teams Specialist Managers Relationship Specialty Start Date End Date Shashi Verma PA [address] [place] [address] PCP - General Family Medicine 04/06/16 01/14/20 documented as of this encounter
--- OUTSIDE RECORDS SUMMARY | 2024-07-04 00:33 | XMS_ITS | Encounter Summary ---
Author Organization [facility] Address [address] [place] [address] Care Team Providers Care Oncology Account Specialist Name Role Phone Unavailable Primary Care Provider Unavailabl e Encounter Details Date Type Department Care Team (Late st Contact Info) Description 01/16/2009 Orders Only [facility] Laboratory Services - [facility] ([facility] [address] [place], [place] [address] Derek Morales MD [facility] [address] [place] [address] Social History Tobacco Use Types Packs/Day Years [...] ARJUN, JANICE M ? Accession #: ? [id number] ? : ? 1960 (Age: 48) ??F [...] amount of cytoplasm. The dermal melanocytes show camp cook maturation. ??(Dr. Fishman)/mpl ? Document reviewed and [...] /alvaro ? End of Report ? [facility] 01/16/2009 01/19/2009 18: 18 EDT us Derek Ready MD PATHOLOGY ORDERABLES Final Resul t [facility] [address] [place] [address] documented in this encounter Visit Diagnoses Not on filedocumented in this encounter
--- OUTSIDE RECORDS SUMMARY | 2024-07-04 00:33 | XMS_ITS | Encounter Summary ---
Author Organization [facility] Address [address] [place] [address] Care Team Providers Care Corn Lab Technician Name Role Phone Gina Morales MD Primary Care Provider [phone] Encounter Details Date Type Department Care Team (Latest Contact Info) Description 02/16/2017 11:38 EDT - 02/16/2017 23:59 EDT Hospital Encounter [address] [address] Unknown, Provider, Discharge Disposition: Auto Discharge Social [...] on filedocumented in this encounter Care Teams Corn Lab Technician Relationship Specialty Start Date End Date Gina Morales MD [address] [place] [address] PCP - General 04/24/13 documented as of this encounter
--- OUTSIDE RECORDS SUMMARY | 2024-07-04 00:33 | XMS_ITS | Encounter Summary ---
Author Organization [facility] Address [address] [place] [address] Care Team Providers Care Consulting Technical Manager Name Role Phone Unknown, Provider Primary Care Provider Unava ilable Encounter Details Date Type Department Care Team (Late st Contact Info) Description 10/01/2004 Results Only [facility] [address] [place] [address] Torri Castro MD [address] [place] [address] [place] [address] Social History Tobacco Use Types Packs/Day Years [...] ? JANICE DÍAZ ? Accession #: ? [id number] : ? 1960 (Age: 44) ??F ?Collect [...] End of Report [facility] 10/01/2004 10/04/2004 us Torri Castro MD PATHOLOGY ORDERABLES Final Resu lt [facility] [address] [place] [address] documented in this encounter Visit Diagnoses Not on filedocumented in this encounter Care Teams Consulting Technical Manager Relationship Specialty Start Date End Date Unknown, Provider, PCP - General 01/21/09 12/26/10 documented as of this encounter
--- OUTSIDE RECORDS SUMMARY | 2024-07-04 00:33 | XMS_ITS | Encounter Summary ---
Author Organization [facility] Address [address] [place] [address] Care Team Providers Care Painter And Decorator Name Role Phone Gina Morales MD Primary Care Provider [phone] Encounter Details Date Type Department Care Team (Latest Contact Info) Description 04/22/2013 11:00 EST - 04/22/2013 23:59 EST Hospital Encounter [address] [address] Unknown, Provider, Discharge Disposition: Home or Self [...] Code Departure Means Destination Home or Self Assisted documented in this encounter Plan of Treatment Not on file documented as of this encounter Visit Diagnoses Not on filedocumented in this encounter Care Teams Painter And Decorator Relationship Specialty Start Date End Date Gina Morales MD [facility] [address] [place] [address] PCP - General 12/27/10 04/23/13 documented as of this encounter
--- OUTSIDE RECORDS SUMMARY | 2024-07-04 00:33 | XMS_ITS | Encounter Summary ---
Author Organization [facility] Address [address] [place] [address] Care Team Providers Care Decorator Mannequin Name Role Phone Gina Morales MD Primary Care Provider [phone] Encounter Details Date Type Department Care Team (Late st Contact Info) Description 05/15/2019 Lab Requisition [facility] Pathology & Laboratory Medicine - [facility] [address] [place] [address] Unknown, Provider, Social History Tobacco Use Types [...] 4th Generation Negative Negative 05/16/2019 13:32 EST [facility] Comment: If acute HIV-1 infection is suspected in a high risk ??patient, submit plasma specimen for HIV-1 RNA quantitation test. Fourth Generation assay performed on the Siemens Takeacoderaur. Blood VENOUS BLOOD / Unknown 05/14/2019 12:10 EST 05/15/2019 15:51 EST us Provider Unknown MD IMMUNOLOGY AND SEROLOGY ORDE RABLES Final Result [facility] [address] [place] [address] documented in this encounter Visit Diagnoses Not on filedocumented in this encounter Care Teams Decorator Mannequin Relationship Specialty Start Date End Date Gina Morales MD [address] [place] [address] PCP - General 04/24/13 documented as of this encounter
--- OUTSIDE RECORDS SUMMARY | 2024-07-04 00:33 | XMS_ITS | Encounter Summary ---
Author Organization [facility] [place] [address] Care Team Providers Care Instructor Modeling Name Role Phone Shashi Verma Primary Care Provider [phone] Encounter Details Date Type Department Care Team (Late st Contact Info) Description 12/16/2019 Telephone [place] [address] Pauly Lopez RN Social History Tobacco Use [...] filedocumented in this encounter Care Teams Instructor Modeling Relationship Specialty Start Date End Date Shashi Verma [address] [place] [address] PCP - General Family Medicine 04/06/16 01/14/20 documented as of this encounter
--- OUTSIDE RECORDS SUMMARY | 2024-07-04 00:33 | XMS_ITS | Encounter Summary ---
Author Organization [facility] Address [address] [place] [address] Care Team Providers Care Chemical Tank Worker Name Role Phone Unknown, Provider Primary Care Provider Unava ilable Encounter Details Date Type Department Care Team (Late st Contact Info) Description 10/05/2005 Results Only [facility] - Maple conversion [address] [place] [address] Torri Castro MD [address] [place] [address] [place] [address] Social History Tobacco Use Types Packs/Day Years [...] ? JANICE DÍAZ ? Accession #: ? [id number] : ? 1960 (Age: 45) ??F ?Collect Date: ? 10/05/2005 Location: ? [facility] ? Receive Date: ? 10/07/2005 Provider: ?TORRI CASTRO MD Copy to: ? Specimen/Source: ?ThinPrep Pap Test, Cervix/Endocervix, processed on LIQUITYPrep Imaging System, with manual evaluation Last Menstrual [...] of Report [facility] 10/05/2005 10/07/2005 us Torri Castro MD PATHOLOGY ORDERABLES Final Resu lt [facility] [address] [place] [address] documented in this encounter Visit Diagnoses Not on filedocumented in this encounter Care Teams Chemical Tank Worker Relationship Specialty Start Date End Date Unknown, Provider, PCP - General 01/21/09 12/26/10 documented as of this encounter
--- OUTSIDE RECORDS SUMMARY | 2024-07-04 00:33 | XMS_ITS | Encounter Summary ---
Author Organization [facility] Address [address] [place] [address] Care Team Providers Care Coil Maker Name Role Phone Unavailable Primary Care Provider Unavailabl e Encounter Details Date Type Department Care Team (Late st Contact Info) Description 01/14/2009 Orders Only [facility] - [facility] ([facility] [place] [address] [place] [address] Torri Castro MD [address] [place] [address] [place] [address] Social History Tobacco Use Types Packs/Day Years [...] ? JANICE DÍAZ ? Accession #: ? [id number] ? : ? 1960 (Age: 48) ??F [...] 12:16 ? End of Report ? [facility] 01/14/2009 01/15/2009 us Torri Castro MD PATHOLOGY ORDERABLES Final Resu lt [facility] [address] [place] [address] documented in this encounter Visit Diagnoses Not on filedocumented in this encounter
--- OUTSIDE RECORDS SUMMARY | 2024-07-04 00:33 | XMS_ITS | Encounter Summary ---
Author Organization [facility] [place] [address] Care Team Providers Care Leather Skinner Name Role Phone Shashi Verma Primary Care Provider [phone]- [phone] Reason for Referral * Diagnostic Test (Routine) - Closed Specialty Diagnoses / Procedures Referred By Contac t Referred To Contact Radiology Diagnoses Pelvic floor dysfunction Procedures MRI Pelvis Soft Tissue (Gi Gu Hide Stretcher Hand)WO Contrast MRI Pelvis Soft Tissue (GI CHANNEL MARKETING MANAGER)W Contrast Yossi Morales APRN [facility] [place] [address] [place] [address] Referral ID Status Reason Start Date Expiration Date V isits Requested Visits Authorized [id number] Closed Specialty Service Requested 03/28/2018 06/26/2018 2 2 Reason for Visit * Diagnostic Test (Routine) - Closed Specialty Diagnoses / Procedures Referred By Contac t Referred To Contact Radiology Diagnoses Pelvic floor dysfunction Procedures MRI Pelvis Soft Tissue (Gi Gu Hide Stretcher Hand)WO Contrast MRI Pelvis Soft Tissue (GI CHANNEL MARKETING MANAGER)W Contrast Yossi Morales APRN [facility] [place] [address] [place] [address] Referral ID Status Reason Start Date Expiration Date V isits Requested Visits Authorized [id number] Closed Specialty Service Requested 03/28/2018 06/26/2018 2 2 Encounter Details Date Type Department Care Team (Latest Contact Info) Description 04/09/2018 10:08 AM EST - 04/09/2018 10:09 AM [facility] Hospital Encounter MRI at [facility] [place] [address] Yossi Morales APRN [facility] [place] [address] Pelvic floor dysfunction Discharge Disposition: Home Social [...] 58 y.o. : 1960 [address] [facility] [address] Female [phone] (home) No relevant phone numbers on file. TORI Mendoza No primary care provider on file. Allergies Allergen Reactions ??? Oxycontin [Oxycodone] Itching ??? Valium [Diazepam] Other (See Comments) makes me depressed Date/Time of call: April 04, 2018/2:50 PM/ PREVIOUS MRI SCAN? Yes, OSH HEIGHT: 5'5 WEIGHT: 155 SCHEDULED SCAN: MRI PELVIS WO CONTRAST [[id number]]; 60 mins, Supine Order Questions Answers Where will study be performed? [facility] [120] Reason for exam and clinical [...] ( JN ) You must have a driver utility worker present when you check in. This patient has been informed that they require a driver utility worker to drive them home after this procedure. In the absence of a driver utility worker, IR will not be able to sedate for your scan. Pt verbalized understanding of these instructions during the pre-procedure education via phone. Yes [place] of driver utility worker: Human service Rep Phone number: PRIOR SCAN DATE/S: SEDATION TYPE: SUCCESSFUL: 04/09/18 MRI Pelvis Ativan 1mg PO yes Revised 10/24/17 documented in this encounter Plan of Treatment Not on file documented as of this encounter Procedures Procedure Name Priority Date/Time Associated Diagnosis Comments MRI PELVIS SOFT TISSUE (GI CHANNEL MARKETING MANAGER) WO CONTRAST Routine 04/09/2018 12:49 PM EST Pelvic floor dysfunction documented in this encounter Results * MRI Pelvis Soft Tissue (Gi Gu Hide Stretcher Hand)WO Contrast (04/09/2018 12:49 PM EST) Anatomical Region [...] EST EXAMINATION: MRI PELVIS SOFT TISSUE (GI CHANNEL MARKETING MANAGER) WO CONTRAST CLINICAL HISTORY: with defecography, pelvic [...] to 9.5 cm with defecation. Procedure Note iG Hurtado MD - 04/09/2018 EXAMINATION: MRI PELVIS SOFT TISSUE (GI CHANNEL MARKETING MANAGER) WO CONTRAST CLINICAL HISTORY: with defecography, pelvic [...] mg documented in this encounter Care Teams Leather Skinner Relationship Specialty Start Date End Date Shashi Verma PA [address] [place] [address] PCP - General Family Medicine 04/06/16 01/14/20 documented as of this encounter
--- OUTSIDE RECORDS SUMMARY | 2024-07-04 00:33 | XMS_ITS | Encounter Summary ---
Author Organization [facility] Address [address] [place] [address] Care Team Providers Care Gun Tester Name Role Phone Gina Morales MD Primary Care Provider [phone] Encounter Details Date Type Department Care Team (Late st Contact Info) Description 07/14/2021 Lab Requisition [facility] Pathology & Laboratory Medicine - [address] [id number] Outr Resulting Lab, Provider Social History Tobacco [...] 2.8 - 5.3 pg/mL 07/14/2021 17:54 EST [facility] Blood VENOUS BLOOD / Unknown 07/13/2021 11:05 EST 07/14/2021 17:12 EST us Provider Outr Resulting Lab CHEMISTRY & BLOOD GA S ORDERABLES Final Result Performing Organization Address City/[facility] Co de Phone Number [facility] [address] [place] [address] * FERRITIN (07/13/2021 11:05 EST) Ferritin 53 10 - 291 ng/mL 07/14/2021 19:42 EST [facility] Blood VENOUS BLOOD / Unknown 07/13/2021 11:05 EST 07/14/2021 17:12 EST us Provider Outr Resulting Lab CHEMISTRY & BLOOD GA S ORDERABLES Final Result Performing Organization Address [facility] de Phone Number [facility] [address] [place] [address] documented in this encounter Visit Diagnoses Not on filedocumented in this encounter Care Teams Gun Tester Relationship Specialty Start Date End Date Gina Morales MD [address] [place] [address] PCP - General 04/24/13 documented as of this encounter
--- OUTSIDE RECORDS SUMMARY | 2024-07-04 00:33 | XMS_ITS | Encounter Summary ---
Author Organization [place] [address] Care Team Providers Care Cpr Instructor Name Role Phone Shashi Verma Primary Care Provider [phone] Reason for Visit * Reason Onset Date Comments Other 03/05/2018 Encounter Details Date Type Department Care Team (Late st Contact Info) Description 03/05/2018 Telephone [place] [phone] Pauly Lopez RN Other Social History Tobacco [...] on filedocumented in this encounter Care Teams Cpr Instructor Relationship Specialty Start Date End Date Shashi Verma PA [address] [place] [address] PCP - General Family Medicine 04/06/16 01/14/20 documented as of this encounter
--- OUTSIDE RECORDS SUMMARY | 2024-07-04 00:33 | XMS_ITS | Encounter Summary ---
Author Organization [facility] Address [address] [place] [address] Care Team Providers Care Coffee Maker Name Role Phone Unknown, Provider Primary Care Provider Estella ilroxanne Encounter Details Date Type Department Care Team (Late st Contact Info) Description 10/01/2003 Results Only [facility] - Maple conversion [address] [place] [address] Joseph Tafoya MD [address] [place] [address] Social History Tobacco Use Types [...] ? JANICE DÍAZ ? Accession #: ? [id number] : ? 1960 (Age: 43) ??F ?Collect [...] End of Report [facility] 10/01/2003 10/02/2003 us Joseph Tafoya MD PATHOLOGY ORDERABLES Final Resul t Performing Organization Address City/State/[facility] Co de Phone Number [facility] [address] [place] [address] documented in this encounter Visit Diagnoses Not on filedocumented in this encounter Care Teams Coffee Maker Relationship Specialty Start Date End Date Unknown, Provider, PCP - General 01/21/09 12/26/10 documented as of this encounter
--- OUTSIDE RECORDS SUMMARY | 2024-07-04 00:33 | XMS_ITS | Encounter Summary ---
Author Organization [facility] Address [address] [place] [address] Care Team Providers Care Internal Sales Engineer Name Role Phone Gina Morales MD Primary Care Provider [phone] Encounter Details Date Type Department Care Team (Late st Contact Info) Description 05/15/2019 Lab Requisition [facility] Pathology & Laboratory Medicine - [address] [address] Unknown, Provider, Social History Tobacco Use Types [...] gonorrhoeae Result Negative Negative 05/16/2019 13:[address] [facility] Chlamydia trachomatis Result Negative Negative 05/16/2019 13:[address] [facility] Urine URINE / Unknown 05/14/2019 1 2:10 EST 05/15/2019 16:53 EST Narrative [facility] - 05/16/2019 13:32 EST A first catch urine specimen is acceptable for detection of Gonorrhea and Chlamydia, but might detect up to 10% fewer infections when compared with vaginal and endocervical swab samples. us Provider Unknown MICROBIOLOGY - GENERAL ORDER NAZANIN Final Result [facility] [address] [place] [address] documented in this encounter Visit Diagnoses Not on filedocumented in this encounter Care Teams Internal Sales Engineer Relationship Specialty Start Date End Date Gina Morales MD [address] [place] [id number] PCP - General 04/24/13 documented as of this encounter
--- OUTSIDE RECORDS SUMMARY | 2024-07-04 00:33 | XMS_ITS | Encounter Summary ---
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 Lc Murillo MD Gastroenterology [place] [address] P: [phone] F: [phone] Copy: OTRI Dawson documented in this encounter Plan of Treatment Not on file documented as of this encounter Visit Diagnoses Diagnosis Abdominal bloating Flatulence, eructation, and gas pain documented in this encounter Care Teams Crime Victim Specialist Relationship Specialty Start Date End Date Shashi Verma PA [address] [place] [address] PCP - General Family Medicine 04/06/16 01/14/20 documented as of this encounter
--- OUTSIDE RECORDS SUMMARY | 2024-07-04 00:33 | XMS_ITS | Encounter Summary ---
Author Organization [facility] [place] [address] Care Team Providers Care Sandblaster Glass Name Role Phone Shashi Verma Primary Care Provider [phone] Reason for Visit * Reason Onset Date Comments Results 05/31/2016 Encounter Details Date Type Department Care Team (Late st Contact Info) Description 05/31/2016 Telephone [place] [phone] Terence Fountain, RN Results Social History Tobacco [...] on filedocumented in this encounter Care Teams Sandblaster Glass Relationship Specialty Start Date End Date Shashi Verma PA [address] [place] [address] PCP - General Family Medicine 04/06/16 01/14/20 documented as of this encounter
--- OUTSIDE RECORDS SUMMARY | 2024-07-04 00:34 | XMS_ITS | Encounter Summary ---
Author Organization [facility] Address [facility] [place] [address] Care Team Providers Care Optical Mechanic Name Role Phone Gina Rodgers MD Primary Care Provider [phone] Encounter Details Date Type Department Care Team (Latest Contact Info) Description 03/28/2011 10:11 AM EDT - 03/30/2011 10:20 AM EDT Hospital Encounter [address] [place] [address] Delmer Tellez MD [facility] DR OBSTETRICS [place] [address] Uterovaginal prolapse, incomplete; Fecal incontinence; Urinary incontinence [...] EDT PATIENT DISCHARGE INSTRUCTIONS UroGynecology phone number: [phone] Call your doctor if you develop: --A [...] 03/29/2011 4:54 PM EDT 4PM called by OUTSIDE SALES PROFESSIONAL agronomy internship indicating that Ms Díaz ahchino no ride [...] to assess at home. Referral sent to [facility] via e- discharge for activation on [...] Date 03/28/11 0700 - 03/29/11 0659 Shift [phone] 24 Hour Total I N T A [...] Gay - 03/28/2011 11:06 AM EDT Inpatient SUPERVISOR FABRICATION DEPARTMENT - Admission Interval Note I have reviewed [...] Office of Care Management (OCM) / Clinical Air Quality Specialist (CRC)/ Initial Assessment Discussed patient with Provider [...] , 51 yea rold female residing in [place], [place] alone in a second floor apartment. She has friends who will pick her up at discharge. 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 ADVANCE DIRECTIVES: None on file. INSURANCE COVERAGE / FINANCIAL ISSUES: [place] [employer] with copays for prescriptions. CURRENT HOME/COMMUNITY SERVICES/EQUIPMENT: DME: Denies any Home Health Agency: None Other: MANAGER APPOINTMENT REFERRAL: No issues identified at this time. PRIMARY CARE PHYSICIAN: GINA RODGERS MD [address] / [place] [address] POTENTIAL DISCHARGE NEEDS: None anticipated at this [...] Tellez MD - 03/28/2011 4:31 PM EDT [facility] [place] [facility] Operative Note Patient Name: Shobha Díaz : [id number] MR#: [id number] Case Date: 03/28/2011 Surgeon: Surgeon(s) and Role: * DELMER TELLEZ MD - Primary * RUBÉN GAY MD - Resident-Senior Web Services Developer Preoperative diagnosis: Uterovaginal prolapse, incomplete Postoperative diagnosis: [...] colpotomy was performed with sharp dissection. A [place] retractor was used to displace the bladder [...] sutures was facilitated by placing a large [place] retractor and holding the packing in the [...] used to reapproximate the full-thickness vaginal wall [id number]. This was continued out to the perineal body. Care was taken to avoid any excessive narrowing of the vaginal introitus. Sponge and needle counts were correct at the end of the procedure. * Discharge Summary - Seferino Bull MD - 03/28/2011 4:10 PM EDT Inpatient SUPERVISOR FABRICATION DEPARTMENT - Discharge Summary Patient Name: Shobha Díaz [...] for hysterectomy with prolapse repair was made. [place] ligament versus mesh repairs were discussed with [...] Instructions PATIENT DISCHARGE INSTRUCTIONS UroGynecology phone number: [phone] Call your doctor if you develop: --A [...] Center: 05/10/2011 3:00 PM MD Aicha Armstrong [facility] 05/10/2011 3:00 PM ANGUS Car [facility] Future Orders Please Complete By Expires Referral to Home Health [SSV1796 CPT(R)] Process Instructions: Scheduling Instructions: Comments: DOCUMENTATION FOR VNA SERVICES (INCLUDING THOSE PATIENTS WITH MEDICARE COVERAGE REQUIRING HOME VNA SERVICES AND/OR HOSPICE SERVICES) PATIENT'S LOCATION: Shobha Díaz [address] [place], [place] [address] (home) Editor In Chief's Name: Patient In discussion with the attending physician, it is certified that this patient is under their care and that they, or a nurse practitioner, clinical nurse specialist or physician's university administrative assistant who is working directly with them, [...] activity, coping. . HOME HEALTH CARE AGENCY: [facility] PHONE: [phone] FAX: [phone] Start of care: Day after discharge (03-31-11) Please note that any additional orders needs or changes will need to be obtained from this patient's PCP: GINA RODGERS MD [address] / [place] [address] All A agencies which cover the area of patient's residence have been reviewed, either verbally bhanu writing, and patient/family have chosen the home health care agency noted Questions: Responses: Agency name and contact information [facility] Patient location post discharge zhomr What services are requested Registered Nurse Start date 03/31/2011 Responsible MD post discharge contact info PCP Discharge patient [ADT8 Custom] Process Instructions: Scheduling Instructions: Comments: Discharge to home Questions: Responses: Call to speak to OUTSIDE SALES PROFESSIONAL resident arson and bomb investigator for: [[id number] Custom] Process Instructions: Scheduling Instructions: Comments: - For temperature greater than 38.3 degrees C or fever/chills - Nausea or vomiting preventing PO intake - Vaginal bleeding requiring more than 1 sanitary pad every hour - Pain not controlled by prescription medications - Inability to void Questions: Responses: Provider Contact Information: GINA RODGERS MD [phone] Discharge References/Attachments: Discharge References/Attachments None Signed: SEFERINO [...] Operative Note Patient Name: Shobha Díaz : [id number] MR#: [id number] Case Date: 03/28/2011 Surgeon: Surgeon(s) and Role: * DELMER TELLEZ MD - Primary * RUBÉN GAY MD - Resident-Senior Web Services Developer Preoperative diagnosis: Uterovaginal prolapse, incomplete Postoperative diagnosis: [...] Delmer Tellez MD [facility]OLOGY ORDERABLE [facility] * (ABNORMAL) CBC (with [...] Tellez MD CHEMISTRY ORDERABLES Performing Organization Address [facility] de Phone Number [facility] * BUN (03/30/2011 3:30 AM EDT) Blood Urea Nitrogen 11 8 - 18 mg/dL [facility] MILLENNIUM Comment:result rechecked-AFP Blood specimen (specimen) 03/30/2011 3:30 AM EDT 03/30/2011 3:52 AM EDT Delmer Tellez MD CHEMISTRY ORDERABLES Performing Organization Address [facility] Phone Number [facility] MILLENNIUM * (ABNORMAL) Electrolytes panel (03/30/2011 3:30 AM EDT) Pathologist [facility] Sodium 124(L) 135 - 145 mmol/L [facility] Potassium 4.5 3.5 - 5.0 mmol/L [...] Tellez MD CHEMISTRY ORDERABLES Performing Organization Address [facility] Co de Phone Number [facility] * POCT GLUCOSE LAB USE ONLY [...] Tellez MD CHEMISTRY ORDERABLES Performing Organization Address City/[facility] Co de Phone Number MIGUELITO Appren[facility]LEE ANN * (ABNORMAL) BUN (03/29/2011 5:08 AM EDT) Blood Urea Nitrogen 6(L) 8 - 18 mg/dL [facility] ZAMAN Blood specimen (specimen) 03/29/2011 5:08 AM EDT 03/29/2011 5:15 AM EDT Delmer Tellez MD CHEMISTRY ORDERABLES [facility] * (ABNORMAL) Electrolytes panel (03/29/2011 5:08 AM [...] AM EDT Delmer Tellez MD CHEMISTRY ORDERABLES [facility] * Surgical Pathology Report (03/28/2011 2:08 PM EDT) Surgical Pathology Report [id number] ? Location: [facility]; [address] The signing pathologist has (i) examined [...] foci are present, averaging 0.1 cm. ?Myometrium: ?[place], smooth to finely reticulated. ? Thickness: ?Up to 2.0 cm. ? Lesions: ?Well-circumscri bed, yellow-white, ? intramural fibroid nodules present, ? varying from 0.2 to 1.6 cm without evidence ? of hemorrhage or necrosis. ?Uterine serosa: ?Red posteriorly, focally hemorrhagic. ?Cervix: ?The 3.3 x 3.2-qu-lb-diamete r cervix is a ? pink, congested and smooth mucosa ? surrounding a 0.7-rn-et-diamete r patulous ? os. ??In the cervical canal is a briones, ? congested, focally hyperemic lining with ? scattered, gelatinous cysts averaging ? 0.2 cm. Sections/Processi ng: ? Route Aide sections are submitted as follows: ??(1) anterior cervix; (2) posterior cervix; (3) anterior endometrium; (4) posterior endometrium; (5) pharmaceutical representative intramural fibroid nodule; (6) posterior serosal [...] Text Report Department: Vascular Surgery Lab Patient: [id number] (SHOBHA DÍAZ) CPT Code: 69413 ICD-9: 729.5 Referring Physician: DELMER TELLEZ Indication: [...] Provider: Primitivo Patel RN - Comment: NATALIYA Wilekrson) 0700 (Not Given - Provider: Pao Wayne [...] Routine documented in this encounter Care Teams Optical Mechanic Relationship Specialty Start Date End Date Gina Rodgers MD HOSPITALIST SERVICES [address] [place] [address] [place] [address] PCP - General 01/18/11 01/27/14 documented as of this encounter
--- OUTSIDE RECORDS SUMMARY | 2024-07-04 00:34 | XMS_ITS | Encounter Summary ---
Author Organization [facility] [place] [address] Care Team Providers Care College Coach Name Role Phone Gina Morales MD Primary Care Provider [phone] Reason for Visit * Reason Onset Date Comments Post Procedure Call 03/30/2011 Encounter Details Date Type Department Care Team (Late st Contact Info) Description 03/30/2011 Telephone Obstetrics [place] [phone] Lela Jaramillo RN Post Procedure Call Social [...] evening or weekends and ask for the professional bass fisherman front end mechanic if she is having problems. LELA JARAMILLO RN Nurse coordinator of Female Pelvic Medicine and Reconstructive Surgery documented in this encounter Plan of Treatment Not on file documented as of this encounter Visit Diagnoses Not on filedocumented in this encounter Care Teams College Coach Relationship Specialty Start Date End Date Gina Morales MD HOSPITALIST SERVICES [address] [place] [address] [place] [address] PCP - General 01/18/11 01/27/14 documented as of this encounter
--- OUTSIDE RECORDS SUMMARY | 2024-07-04 00:34 | XMS_ITS | Encounter Summary ---
Author Organization [facility] Address [facility] [place] [address] Care Team Providers Care Top Lift Nailer Name Role Phone Gina Morales MD Primary Care Provider [phone] Reason for Visit * Reason Comments Urinary Incontinence Encounter Details Date Type Department Care Team (Late st Contact Info) Description 02/12/2015 2:45 PM EDT Follow-Up Obstetrics [place] [address] Casey Velasco MD [facility] [place] [address] Unspecified urinary incontinence; Urinary incontinence, mixed; Fecal [...] Shobha Ramírez taught to Self cath with Phoenix caths 14 fr. Pamphlets given and reviewed: Self Catheterization, [facility] Urinary Tract Infections and [facility] How to Clean Urinary Catheters. Pt also given two Mentorcaths 14fr. to practice with at home. Pt was able to return demonstrate theprocedure. She feels comfortable with her ability to self cath and has no questions at this time. She will call [phone] with questions or if she needs further [...] floor exercisesin the past with PT near [place]. ?? I would be reluctant to start [...] prepped with Betadine and a 14 Fr Phoenix female catheter passed. PVR was 350 mL. [...] emptying documented in this encounter Care Teams Top Lift Nailer Relationship Specialty Start Date End Date Gina Morales MD HOSPITALIST SERVICES [address] [place] [address] [place] [address] PCP - General 01/29/14 04/05/16 documented as of this encounter
--- OUTSIDE RECORDS SUMMARY | 2024-07-04 00:34 | XMS_ITS | Encounter Summary ---
Author Organization [facility] [place] [address] Care Team Providers Care Radiotelegraphist Name Role Phone Gina Morales MD Primary Care Provider [phone] Reason for Visit * Reason Onset Date Comments Advice Only 09/23/2015 Encounter Details Date Type Department Care Team ([facility] st Contact Info) Description 09/23/2015 Telephone [place] [phone] Maria Ines Muir, fruit grader Only Social History Tobacco Use Types Packs/Day [...] on filedocumented in this encounter Care Teams Radiotelegraphist Relationship Specialty Start Date End Date Gina Morales MD HOSPITALIST SERVICES [address] [place] [address] [place] [address] PCP - General 01/29/14 04/05/16 documented as of this encounter
--- OUTSIDE RECORDS SUMMARY | 2024-07-04 00:34 | XMS_ITS | Encounter Summary ---
Author Organization [facility] Address [facility] [place] [address] Care Team Providers Care Air Valve Mechanic Name Role Phone Gina Morales MD Primary Care Provider [phone] Encounter Details Date Type Department Care Team (Late st Contact Info) Description 09/06/2013 Notes Only Obstetrics [place] [address] Lela Jaramillo, RN Social History [...] floor exercises inthe past with PT near [place]. I would be reluctant to start an anticholinergic agent based on her incomplete emptying on prior evaluation and constipation history. CASEY VELASCO MD Division of Female Pelvic Medicine & Reconstructive Surgery documented in this encounter Plan of Treatment Not on file documented as of this encounter Visit Diagnoses Not on filedocumented in this encounter Care Teams Air Valve Mechanic Relationship Specialty Start Date End Date Gina Morales MD HOSPITALIST SERVICES [address] [place] [address] [place] [address] PCP - General 01/18/11 01/27/14 documented as of this encounter
--- OUTSIDE RECORDS SUMMARY | 2024-07-04 00:34 | XMS_ITS | Encounter Summary ---
Author Organization [facility] Address [facility] [place] [address] Care Team Providers Care Prn Occupational Therapist Name Role Phone Gina Morales MD Primary Care Provider [phone] Reason for Visit * Reason Comments Post Op hysterectomy, sling, colporrhaphy Encounter Details Date Type Department Care Team (Late st Contact Info) Description 05/10/2011 3:00 PM EST Office Visit Obstetrics [place] [address] Devi Regalado APRN [facility] OBSTETRICS & [place] [address] Post-operative state (Primary Dx) Discharge Disposition: Home [...] 4:34 PM EST I met with Ms. Ramírez at her postoperative visit as well. She [...] leaks with: Event Presence Event Presence NONE [place] Walking x Cold Weather x Running Anticipation [...] test (empty supine): negative External Genitalia: Vulva, [place]'s and [place]tholin glands normal, urethra without tenderness [...] status documented in this encounter Care Teams Prn Occupational Therapist Relationship Specialty Start Date End Date Gina Morales MD HOSPITALIST SERVICES [address] [place] [address] [place] [address] PCP - General 01/18/11 01/27/14 documented as of this encounter
--- OUTSIDE RECORDS SUMMARY | 2024-07-04 00:34 | XMS_ITS | Encounter Summary ---
Author Organization [facility] Address [facility] [place] [address] Care Team Providers Care Well Logging Mud Analysis Captain Name Role Phone Gina Morales MD Primary Care Provider [phone] Reason for Visit * Auth/Cert Specialty Diagnoses / Procedures Referred By Yomi morales Referred To Contact Diagnoses gerd Procedures PRO UPPER GI ENDOSCOPY, DIAGNOSTIC EGD, UPPER GI ENDOSCOPY Referral ID Status Reason Start Date Expiration Date Visits Re quested Visits Authorized [id number] 1 1 Encounter Details Date Type Department Care Team (Latest Contact Info) Description 09/03/2015 9:04 AM EDT - 09/03/2015 9:53 AM EDT Hospital [place] [phone] Erik Logan MD RUQ pain Discharge Disposition: Home Social History [...] 09:47 am) Patient Info ID #: ? [id number] ?: ??[birth year] (55 yrs) Name: ? JANICE DÍAZ ? Visit Date: 09/03/2015 09:36 am Performed By Performed By: ? Rosalie Tellez RDMS Attending: ?Hiren LUNDY, Misti Associate: ?Shira Guevara DO Referred By: ?ERIK LOGAN MD Service(s) Provided ??UABDLIM - Abdominal Limited Survey Single ? [id number] ??Organ or Quadrant - [id number] Indications ??ruq pain, ?gb stones ?gb inflammation [...] 09/03/2015 09:47 am) Patient Info ID #: [id number] : [birth year] (55 yrs) Name: JANICE DÍAZ Visit Date: 09/03/2015 09:36 am Performed By Performed By: Rosalie Tellez RDMS Attending: Misti Maradiaga MD Associate: Shira Guevara DO Referred By: ERIK LOGAN MD Service(s) Provided UABDLIM - Abdominal Limited Survey Single [id number] Organ or Quadrant - [id number] Indications ruq pain, ?gb stones ?gb inflammation [...] quadrant documented in this encounter Care Teams Well Logging Mud Analysis Captain Relationship Specialty Start Date End Date Gina Morales MD HOSPITALIST SERVICES [address] [place] [address] [place] [address] PCP - General 01/29/14 04/05/16 documented as of this encounter
--- OUTSIDE RECORDS SUMMARY | 2024-07-04 00:34 | XMS_ITS | Encounter Summary ---
Author Organization [facility] Address [facility] [place] [address] Care Team Providers Care Needle Bar Molder Name Role Phone Gina Morales MD Primary Care Provider [phone] Reason for Visit * Auth/Cert Specialty Diagnoses / Procedures Referred By Yomi t Referred To Contact Diagnoses gerd Procedures PRO UPPER GI ENDOSCOPY, DIAGNOSTIC EGD, UPPER GI ENDOSCOPY Referral ID Status Reason Start Date Expiration Date Visits Re quested Visits Authorized [id number] 1 1 Encounter Details Date Type Department Care Team (Late st Contact Info) Description 09/03/2015 11:30 AM EDT - 09/03/2015 12:00 PM EDT Surgery [place] [phone] Kain Kimball MD [facility] [place] [address] EGD WITH BIOPSY (WRVU 2.39) Social History [...] expected. Who to call Same Day Endoscopy [phone] [id number] M-F Otherwise contact [phone] and ask to speak to the assembly operator community relations police lieutenant. Follow-up care is a pena part of [...] Report (09/03/2015 12:17 PM EDT) Final Diagnosis [id number] ? Location: 4T; [facility]; A The signing pathologist has (i) examined [...] EDT Kain Kimball MD PATHOLOGY/CYTOLOGY O RDERAGERALDO [facility] [place] [address] * Specimen to Pathology (surgical or derm) (09/03/2015 12:17 PM EDT) AP Specimen 09/03/2015 12:1 7 PM EDT 09/03/2015 12:17 PM EDT Narrative [facility] - 09/03/2015 12:17 PM EDT Specimen requisition ordered. ??Separate Pathology report to follow Kain Kimball MD PATHOLOGY/CYTOLOGY O ABBIE Performing Organization Address [facility]/[place] [address] * Specimen to Pathology (surgical or derm) (09/03/2015 12:17 PM EDT) AP Specimen 09/03/2015 12:1 7 PM EDT 09/03/2015 12:17 PM EDT Narrative [facility] - 09/03/2015 12:17 PM EDT Specimen requisition ordered. ??Separate Pathology report to follow Kain Kimball MD PATHOLOGY/CYTOLOGY O ABBIE Performing Organization Address [facility] [place] [place] [address] * Specimen to Pathology (surgical or derm) (09/03/2015 12:17 PM EDT) AP Specimen 09/03/2015 12:1 7 PM EDT 09/03/2015 12:17 PM EDT Narrative [facility] - 09/03/2015 12:17 PM EDT Specimen requisition ordered. ??Separate Pathology report to follow Kain Kimball MD PATHOLOGY/CYTOLOGY O ABBIE Performing Organization Address [facility] [place] [address] * UPPER GI ENDOSCOPY (09/03/2015 11:56 AM EDT) UPPER GI ENDOSCOPY [facility] Endoscopy Patient Name: Shobha Ramírez ? Procedure Date: 09/03/2015 11:56 AM ? Date of : 1960 ? Age: 55 ? Order #: [id number] ? Procedure: ? Upper GI endoscopy Indications: ? Dyspepsia, Dysphagia Providers: ? Kain Kimball MD, Lorrie ? MD Jayla, Danielle Turner, ? Nelly John Referring : ?Gina Moraels MD, Yossi Morales MD Medicines: ? Midazolam [...] Procedure Code(s): ?? --- Professional --- ? 91209, Esophagogastroduo denoscopy, ? flexible, transoral; with biopsy, ? single or multiple CPT copyright 2014 [employer]. All rights reserved. The codes documented in this report are preliminary and upon cane flume watchman review may be revised to meet current [...] RN) documented in this encounter Care Teams Needle Bar Molder Relationship Specialty Start Date End Date Gina Morales MD HOSPITALIST SERVICES [address] [place] [address] [place] [address] PCP - General 01/29/14 04/05/16 documented as of this encounter
--- OUTSIDE RECORDS SUMMARY | 2024-07-04 00:34 | XMS_ITS | Encounter Summary ---
Author Organization [facility] Address [facility] [place] [address] Care Team Providers Care Food Safety Technician Name Role Phone Gina Morales MD Primary Care Provider [phone] Reason for Visit * Reason Onset Date Comments Post-op Problem 04/07/2011 Encounter Details Date Type Department Care Team (Late st Contact Info) Description 04/07/2011 Telephone Obstetrics [place] [phone] Lela Jaramillo, RN Post-op Problem Social History [...] on filedocumented in this encounter Care Teams Food Safety Technician Relationship Specialty Start Date End Date Gina Morales MD HOSPITALIST SERVICES [address] [place] [address] [place] [address] PCP - General 01/18/11 01/27/14 documented as of this encounter
--- OUTSIDE RECORDS SUMMARY | 2024-07-04 00:34 | XMS_ITS | Encounter Summary ---
Author Organization [facility] [place] [address] Care Team Providers Care Home Aid Name Role Phone Gina Morales MD Primary Care Provider [phone] Reason for Visit * Reason Onset Date Comments Follow-up 04/06/2011 Encounter Details Date Type Department Care Team (Late st Contact Info) Description 04/06/2011 Telephone Obstetrics [place] [phone] Lela Jaramillo, RN Follow-up Social History Tobacco [...] Pt asked if I would call the [facility]. Plan/Instructions: Spoke with Jef (nurse at [facility] in [facility]). Pt had a temperature of 37.9, urine dip was positive for leukos, urine sent for culture. PV was not checked. Will review with . Pt to call clinic with any questions/concerns. documented in this encounter Plan of Treatment Not on file documented as of this encounter Visit Diagnoses Not on filedocumented in this encounter Care Teams Home Aid Relationship Specialty Start Date End Date Gina Morales MD HOSPITALIST SERVICES [address] [place] [address] [place] [address] PCP - General 01/18/11 01/27/14 documented as of this encounter
--- OUTSIDE RECORDS SUMMARY | 2024-07-04 00:34 | XMS_ITS | Encounter Summary ---
Author Organization [facility] Address [facility] [place] [address] Care Team Providers Care Hot Knife Foxing Cutter Name Role Phone Gina Morales MD Primary Care Provider [phone] Reason for Visit * Reason Comments Follow-up Encounter Details Date Type Department Care Team (Late st Contact Info) Description 10/25/2011 8:30 AM EDT Office Visit Obstetrics [place] [address] Casey Velasco MD [facility] OBSTETR[place] [address] Pelvic pain (Primary Dx); Dyspareunia, female; Urinary [...] dipstick (10/25/2011 9:21 AM EDT) POC Sp [place] 1.010 1.002 - 1.030 POC pH, UA [...] (male)(female) documented in this encounter Care Teams Hot Knife Foxing Cutter Relationship Specialty Start Date End Date Gina Morales MD HOSPITALIST SERVICES [address] [place] [address] [place] [address] PCP - General 01/18/11 01/27/14 documented as of this encounter
--- OUTSIDE RECORDS SUMMARY | 2024-07-04 00:34 | XMS_ITS | Encounter Summary ---
Author Organization [facility] [place] [address] Care Team Providers Care Nut Chopper Name Role Phone Gina Morales MD Primary Care Provider [phone] Reason for Visit * Reason Onset Date Comments Other 08/11/2011 bladder mesh iss ue Encounter Details Date Type Department Care Team (Late st Contact Info) Description 08/11/2011 Telephone Obstetrics [place] [address] Rahel Pagan, RN [address] [place] [address] Other (bladder mesh issue) Social History Tobacco [...] some documents from the appointment yesterday in [facility]. Adri is in agreement with this plan. documented in this encounter Plan of Treatment Not on file documented as of this encounter Visit Diagnoses Not on filedocumented in this encounter Care Teams Nut Chopper Relationship Specialty Start Date End Date Gina Morales MD HOSPITALIST SERVICES [address] [place] [address] [address] [place] [address] PCP - General 01/18/11 01/27/14 documented as of this encounter
--- OUTSIDE RECORDS SUMMARY | 2024-07-04 00:34 | XMS_ITS | Encounter Summary ---
Author Organization [place] [address] Care Team Providers Care Roads Supervisor Name Role Phone Gina Morales MD Primary Care Provider [phone] Reason for Visit * Reason Onset Date Comments Results 02/23/2015 Encounter Details Date Type Department Care Team (Late st Contact Info) Description 02/23/2015 Telephone Obstetrics [place] [address] Bindu Hodges, RN Results Social History Tobacco [...] on filedocumented in this encounter Care Teams Roads Supervisor Relationship Specialty Start Date End Date Gina Morales MD HOSPITALIST SERVICES [address] [place] [address] [place] [address] PCP - General 01/29/14 04/05/16 documented as of this encounter
--- OUTSIDE RECORDS SUMMARY | 2024-07-04 00:34 | XMS_ITS | Encounter Summary ---
Author Organization [facility] Address [facility] [place] [address] Care Team Providers Care Select Banker Name Role Phone Gina Morales MD Primary Care Provider [phone] Reason for Visit * Reason Onset Date Comments Follow-up 09/20/2013 Encounter Details Date Type Department Care Team (Late st Contact Info) Description 09/20/2013 Telephone Obstetrics [place] [phone] Lela Jaramillo, RN Follow-up Social History Tobacco [...] on filedocumented in this encounter Care Teams Select Banker Relationship Specialty Start Date End Date Gina Morales MD HOSPITALIST SERVICES [address] [place] [address] [place] [address] PCP - General 01/18/11 01/27/14 documented as of this encounter
--- OUTSIDE RECORDS SUMMARY | 2024-07-04 00:34 | XMS_ITS | Encounter Summary ---
Author Organization [facility] Address [facility] [place] [address] Care Team Providers Care Nurse Infection Control Name Role Phone Gina Morales MD Primary Care Provider [phone] Reason for Visit * Reason Comments Procedure Urodynamics Study Encounter Details Date Type Department Care Team (Latest Contact Info) Description 09/24/2013 2:00 PM EDT Procedure visit Obstetrics [place] [address] Casey Velasco MD [facility] DR OBSTETRICS [place] [address] Urinary retention with incomplete bladder emptying (Primary [...] Female Pelvic Medicine and Reconstructive Surgery @ [facility] Urodynamic Procedure Note Patient name: Shobha Ramírez [...] floor exercisesin the past with PT near [place]. ?? I would be reluctant to start [...] URINE ANALYSIS: trace for protein CYSTOMETROGRAM: 7 American T-DOC catheter was inserted into the bladder. A 7 American T-DOC catheter was placed in the vagina/rectum for measurement of abdominal pressures. Filling was performed via a 7 American T-DOC catheter in the sitting position at [...] * POCT urine dipstick (09/24/2013) POC Sp [place] 1.002 - 1.030 POC pH, UA 5.0 [...] incontinence documented in this encounter Care Teams Nurse Infection Control Relationship Specialty Start Date End Date Gina Morales MD HOSPITALIST SERVICES [address] [place] [address] [place] [address] PCP - General 01/18/11 01/27/14 documented as of this encounter
--- OUTSIDE RECORDS SUMMARY | 2024-07-04 00:34 | XMS_ITS | Encounter Summary ---
Author Organization [facility] Address [facility] [place] [address] Care Team Providers Care Revenue Research Analyst Name Role Phone Gina Morales MD Primary Care Provider [phone] Reason for Visit * Reason Comments Follow-up 1 YEAR CK Encounter Details Date Type Department Care Team (Late st Contact Info) Description 06/22/2012 3:00 PM EST Office Visit Obstetrics [place] [address] Casey Velasco MD [facility] DR [place] [address] Urge incontinence (Primary Dx) Discharge Disposition: Home [...] leaks with: Event Presence Event Presence NONE [place] Walking Cold Weather Running Anticipation of going [...] Density Study: n/a Mammogram: annually at [facility] Pap smear: S/p hysterectomy OBJECTIVE: BP 122/78 [...] test (empty supine): negative External Genitalia: Vulva, [place]'s and Bartholin glands normal, urethra without tenderness [...] DÍAZ ?Ordered By: CASEY VELASCO ? MR#: [id number] ?LOC: ??5L ? /Sex: ??1960 (52 years), [...] Urine Dipstick Hazy(A) Clear CERNER MILLENNIUM Specific [place] Urine Automated 1.016 1.002 - 1.030 CERNER [...] In Lab Casey Velasco MD URINE ORDERABLES [facility] documented in this encounter Visit Diagnoses Diagnosis Urge incontinence- Primary documented in this encounter Care Teams Revenue Research Analyst Relationship Specialty Start Date End Date Gina Morales MD HOSPITALIST SERVICES [address] [place] [address] [place] [address] PCP - General 01/18/11 01/27/14 documented as of this encounter
--- OUTSIDE RECORDS SUMMARY | 2024-07-04 00:34 | XMS_ITS | Encounter Summary ---
Author Organization [facility] Address [facility] [place] [address] Care Team Providers Care Knot Bumper Name Role Phone Gina Morales MD Primary Care Provider Reason for Visit * Reason Comments Follow-up Encounter Details Date Type Department Care Team (Late st Contact Info) Description 09/01/2015 11:00 AM EDT Office Visit Obstetrics [place] [address] Casey Velasco MD [facility] OBSTETRICS [place] [address] Menopause; Urge incontinence of urine; Dyspareunia, female [...] She takes Dulcolax and PRN Miralax to varnish remover her bowels. She isgoing 1-2 times per [...] dipstick Result Value Ref Range POC Sp [place] 1.005 1.002 - 1.030 POC pH, UA [...] with 10 minutes of the time spent [id number] in discussing her diagnosis and reviewing options [...] encounter Results * Bladder Scanner (09/01/2015) Pathologist [facility] Bladder Scan (mL) 24 mL Casey Velasco MD URO PROC W/O RFL ORD ERABLES * POCT urine dipstick (09/01/2015) Pathologist [facility] POC Sp [place] 1.005 1.002 - 1.030 POC pH, UA [...] Dyspareunia documented in this encounter Care Teams Knot Bumper Relationship Specialty Start Date End Date Gina Morales MD HOSPITALIST SERVICES [address] [place] [address] [place] [address] PCP - General 01/29/14 04/05/16 documented as of this encounter
--- OUTSIDE RECORDS SUMMARY | 2024-07-04 00:34 | XMS_ITS | Encounter Summary ---
Author Organization [facility] Address [facility] [place] [address] Care Team Providers Care Mingler Operator Name Role Phone Gina Morales MD Primary Care Provider [phone] Reason for Referral * Consultation (Routine) - Closed Specialty Diagnoses / Procedures Referred By Contac t Referred To Contact Gastroenterology Diagnoses Difficulty defecating Irritable bowel syndrome with diarrhea Casey Velasco MD [facility] DR OBST[place] [address] Yossi Morales APRN [facility] [place] [address] Referral ID Status Reason Start Date Expiration Date V isits Requested Visits Authorized [id number] Closed Consult, Test & Treat 06/03/2015 06/02/2016 1 1 Reason for Visit * Reason Comments Follow-up Constipation Encounter Details Date Type Department Care Team (Late st Contact Info) Description 06/03/2015 11:30 AM EST Office Visit Obstetrics [place] [address] Casey Velasco MD [facility] OBST[place] [address] Urinary incontinence, unspecified type; Urinary incontinence, mixed; [...] the hymen. Anterior wall support relatively normal. [place] support normal, non-tender. Cervix: absent Bimanual: Uterus [...] with 20 minutes of the time spent [id number] in discussing her diagnosis and reviewing options [...] syndrome documented in this encounter Care Teams Mingler Operator Relationship Specialty Start Date End Date Gina Morales MD HOSPITALIST SERVICES [address] [place] [address] [place] [address] PCP - General 01/29/14 04/05/16 documented as of this encounter
--- OUTSIDE RECORDS SUMMARY | 2024-07-04 00:34 | XMS_ITS | Encounter Summary ---
Author Organization [facility] Address [facility] [place] [address] Care Team Providers Care Patient Relations Manager Name Role Phone Gina Morales MD Primary Care Provider [phone] Encounter Details Date Type Department Care Team (Late st Contact Info) Description 10/25/2011 11:15 AM EDT [place] [phone] Rosio Gonzalez, PT [facility] PHYSICAL MEDICINE & [place] [address] Gina Morales MD [address] [place] [address] [facility] [place], [place] [id number] Muscle weakness; Urinary incontinence, mixed Discharge Disposition: [...] to avoid them to protect repair. Goals: residential goals ( 3 months ) 1. Patient [...] (male)(female) documented in this encounter Care Teams Patient Relations Manager Relationship Specialty Start Date End Date Gina Morales MD HOSPITALIST SERVICES [address] [place] [address] [place] [address] PCP - General 01/18/11 01/27/14 documented as of this encounter
--- OUTSIDE RECORDS SUMMARY | 2024-07-04 00:34 | XMS_ITS | Encounter Summary ---
Author Organization [facility] Address [facility] [place] [address] Care Team Providers Care Clipping Marker Name Role Phone Gina Morales MD Primary Care Provider [phone] Reason for Visit * Reason Comments Follow-up s/p surgery 02/2011 Encounter Details Date Type Department Care Team (Late st Contact Info) Description 08/22/2013 10:15 AM EDT Office Visit Obstetrics [place] [address] Casey Velasco MD [facility] DR OBSTET[place] [address] Urinary retention with incomplete bladder emptying (Primary [...] <250 GRAMS performed by CASEY VELASCO at [facility] MAIN OR ??? Revaginal prolapse, uterosacral 03/28/2011 COLPOPEXY, VAGINAL, INTRAPERITONEAL APPROACH performed by CASEY VELASCO at [facility] MAIN OR ??? Sling oper stres incontinence 03/28/2011 URETHRAL SUSPENSION, SLING\FASCIA OR SYNTHETIC performed by CASEY VELASCO at [facility] MAIN OR ??? Post colporrhaphy, rectum/vagina 03/28/2011 COLPORRHAPHY, POST RECTOCELE WITH OR W\O PERINEORRHAPHY performed by CASEY VELASCO at [facility] MAIN OR OBJECTIVE: Blood pressure 140/84, height 166.4 cm (5' 5.5), weight 109.317 kg (241 lb), last menstrual [id number]/27/2011. Pelvic: Normal external genitalia, including urethral meatus [...] prepped with Betadine and a 14 Fr Thorndike female catheter passed. PVR was 230 mL. [...] with 15 minutes of the time spent [id number] in discussing her diagnosis and reviewing options [...] * POCT urine dipstick (08/22/2013) POC Sp [place] 1.002 - 1.030 POC pH, UA 5.0 [...] organs documented in this encounter Care Teams Clipping Marker Relationship Specialty Start Date End Date Gina Morales MD HOSPITALIST SERVICES [address] [place] [address] [place] [address] PCP - General 01/18/11 01/27/14 documented as of this encounter
--- OUTSIDE RECORDS SUMMARY | 2024-07-04 00:34 | XMS_ITS | Encounter Summary ---
Author Organization [facility] Address [facility] [place] [address] Care Team Providers Care Clinical Supervisor Name Role Phone Gina Morales MD Primary Care Provider [phone] Reason for Referral * Diagnostic Test (Routine) Specialty Diagnoses / Procedures Referred By Contac t Referred To Contact Radiology Diagnoses Pelvic floor dysfunction Procedures MRI Pelvis Soft Tissue (Gi Gu Extruding Press Operator)WO Contrast MRI Pelvis Soft Tissue(Gi Gu Extruding Press Operator)WWO Contrast Yossi Morales CLEANER [employer] [facility] [place] [address] [place] [address] Referral ID Status Reason Start Date Expiration Date V isits Requested Visits Authorized [id number] Specialty Service Requested 04/12/2016 07/11/2016 1 1 * Physical Therapy (Routine) - Closed Specialty Diagnoses / Procedures Referred By Contac t Referred To Contact Physical Therapy Diagnoses Pelvic floor dysfunction Yossi Morales [employer] [facility] [place] [address] [address] [place] [address] Referral ID Status Reason Start Date Expiration Date V isits Requested Visits Authorized [id number] Closed Evaluate and Treat 03/23/2016 03/23/2017 1 1 Encounter Details Date Type Department Care Team (Late st Contact Info) Description 03/23/2016 12:00 PM EDT Office Visit Gastroenterology at [facility] [place] [address] Yossi Morales APRN [facility] [place] [address] Irritable bowel syndrome with constipation; Pelvic floor [...] * MRI Pelvis Soft Tissue (Gi Gu Extruding Press Operator)WO Contrast (04/18/2016 2:33 PM EST) Anatomical Region Laterality Modality Pelvis Magnetic Resonan ce Impressions 04/18/2016 3:13 PM EST Anterior compartment: mild (2-4cm) descent. Urethral hypermobility with cystocele. Middle compartment: Normal (0-2cm). Posterior compartment: Marked (>6cm) descent. ??Rectocele, as above. ??No enterocele.Peritoneocele, as above. Rectal prolapse:Internal mucosal Narrative 04/18/2016 3:13 PM EST EXAMINATION: MRI PELVIS SOFT TISSUE (GI GROUND CREW LINESMAN) WO CONTRAST CLINICAL HISTORY: pelvic mri with [...] 04/18/2016 EXAMINATION: MRI PELVIS SOFT TISSUE (GI GROUND CREW LINESMAN) WO CONTRAST CLINICAL HISTORY: pelvic mri with [...] wasting documented in this encounter Care Teams Clinical Supervisor Relationship Specialty Start Date End Date Gina Morales MD HOSPITALIST SERVICES [address] [place] [address] [address] [place] [address] PCP - General 01/29/14 04/05/16 documented as of this encounter
--- OUTSIDE RECORDS SUMMARY | 2024-07-04 00:34 | XMS_ITS | Encounter Summary ---
Author Organization [facility] Address [facility] [place] [address] Care Team Providers Care Telephone Repairer Name Role Phone Gina Morales MD Primary Care Provider [phone] Encounter Details Date Type Department Care Team (Late st Contact Info) Description 07/02/2015 Orders Only Obstetrics [place] [address] Lela Jaramillo RN Menopause Social [...] (natural) documented in this encounter Care Teams Telephone Repairer Relationship Specialty Start Date End Date Gina Morales MD HOSPITALIST SERVICES [address] [place] [address] [address] [place] [id number] PCP - General 9/3/14 11/8/16 documented as of this encounter
--- OUTSIDE RECORDS SUMMARY | 2024-07-04 00:34 | XMS_ITS | Encounter Summary ---
Author Organization [facility] Address [facility] [place] [address] Care Team Providers Care Auto Refinisher Name Role Phone Gina Morales MD Primary Care Provider [phone] Reason for Referral * Physical Therapy (Routine) - Closed Specialty Diagnoses / Procedures Referred By Contac t Referred To Contact Physical Therapy Diagnoses Pelvic pain in female Dyspareunia Urinary incontinence, mixed Casey Velasco MD [facility] OBSTETRICS [place] [address] [facility] [place] [address] Referral ID Status Reason Start Date Expiration Date V isits Requested Visits Authorized [id number] Closed Evaluate and Treat 08/23/2011 02/19/2012 1 1 Reason for Visit * Reason Comments Follow-up Encounter Details Date Type Department Care Team (Late st Contact Info) Description 08/23/2011 8:15 AM EDT Follow-Up Obstetrics [place] [address] Casey Velasco MD [facility] OBSTETRICS [place] [address] Vaginal bleeding (Primary Dx); Pelvic pain in [...] <250 GRAMS performed by CASEY VELASCO at [facility] MAIN OR ??? Revaginal prolapse, uterosacral 03/28/2011 COLPOPEXY, VAGINAL, INTRAPERITONEAL APPROACH performed by CASEY VELASCO at [facility] MAIN OR ??? Sling oper stres incontinence 03/28/2011 URETHRAL SUSPENSION, SLING\FASCIA OR SYNTHETIC performed by CASEY VELASCO at [facility] MAIN OR ??? Post colporrhaphy, rectum/vagina 03/28/2011 COLPORRHAPHY, POST RECTOCELE WITH OR W\O PERINEORRHAPHY performed by CASEY VELASCO at [facility] MAIN OR Outpatient prescriptions marked as taking [...] * POCT urine dipstick (08/23/2011) POC Sp [place] 1.002 - 1.030 POC pH, UA 5.0 [...] (male)(female) documented in this encounter Care Teams Auto Refinisher Relationship Specialty Start Date End Date Gina Morales MD HOSPITALIST SERVICES [address] [place] [address] [address] [place] [address] PCP - General 01/18/11 01/27/14 documented as of this encounter
--- OUTSIDE RECORDS SUMMARY | 2024-07-04 00:34 | XMS_ITS | Encounter Summary ---
Author Organization [facility] [place] [address] Care Team Providers Care Soybean Specialties Cook Name Role Phone Shashi Verma Primary Care Provider [phone] Encounter Details Date Type Department Care Team (Late st Contact Info) Description 03/23/2016 Orders [place] [phone] Elizabeth Chaudhari Social History Tobacco Use Types [...] on filedocumented in this encounter Care Teams Soybean Specialties Cook Relationship Specialty Start Date End Date Shashi Verma PA [address] [place] [address] PCP - General Family Medicine 04/06/16 01/14/20 documented as of this encounter
--- OUTSIDE RECORDS SUMMARY | 2024-07-04 00:34 | XMS_ITS | Encounter Summary ---
Author Organization [facility] [place] [address] Care Team Providers Care Customer Success Representative Name Role Phone Gina Morales MD Primary Care Provider [phone] Reason for Visit * Reason Onset Date Comments Follow-up 04/08/2011 Encounter Details Date Type Department Care Team (Late st Contact Info) Description 04/08/2011 Telephone Obstetrics [place] [phone] Lela Jaramillo, RN Follow-up Social History Tobacco [...] on filedocumented in this encounter Care Teams Customer Success Representative Relationship Specialty Start Date End Date Gina Morales MD HOSPITALIST SERVICES [address] [place] [address] [place] [address] PCP - General 01/18/11 01/27/14 documented as of this encounter
--- OUTSIDE RECORDS SUMMARY | 2024-07-04 00:34 | XMS_ITS | Encounter Summary ---
Author Organization [facility] [place] [address] Care Team Providers Care Salvationist Name Role Phone Gina Morales MD Primary Care Provider [phone] Encounter Details Date Type Department Care Team (Late st Contact Info) Description 12/04/2013 Orders Only Obstetrics [place] [address] Lela Jaramillo, RN Menopause (Primary [...] (natural) documented in this encounter Care Teams Salvationist Relationship Specialty Start Date End Date Gina Morales MD HOSPITALIST SERVICES [address] [place] [address] [place] [address] PCP - General 01/18/11 01/27/14 documented as of this encounter
--- OUTSIDE RECORDS SUMMARY | 2024-07-04 00:34 | XMS_ITS | Encounter Summary ---
[place] [address] Care Team Providers Care Outpatient Receptionist Name Role Phone Gina Morales MD Primary Care Provider [phone] Reason for Visit * Reason Onset Date Comments Results 09/21/2015 Encounter Details Date Type Department Care Team ([facility] st Contact Info) Description 09/21/2015 Telephone [place] [address] Terence Fountain RN Results Social History Tobacco [...] on filedocumented in this encounter Care Teams Outpatient Receptionist Relationship Specialty Start Date End Date Gina Morales MD HOSPITALIST SERVICES [address] [place] [address] [place] [address] PCP - General 01/29/14 04/05/16 documented as of this encounter
--- OUTSIDE RECORDS SUMMARY | 2024-07-04 00:34 | XMS_ITS | Encounter Summary ---
Author Organization [facility] Address [facility] [place] [address] Care Team Providers Care Coverstitch Binder Name Role Phone Gina Morales MD Primary Care Provider [phone] Reason for Visit * Reason Comments GI Problem Encounter Details Date Type Department Care Team (Late st Contact Info) Description 08/05/2015 9:00 AM EST Office [place] [address] Yossi Morales APRN [facility] [place] [address] Constipation, unspecified constipation type; Gastroesophageal reflux disease, [...] AM EST Section of Gastroenterology and Hepatology [address] [place], [place] [address] .Shobha Díaz : 1960 Patient is here for further evaluation of gastrointestinal symptoms at the request of Gina Morales MD. HPI: Pt is here for ibs. Stools can alternate in consistency and frequency. FCI sx. Can go a few days with [...] bloat. Per pt had a colonoscopy at [facility]. ?year. told I do not need to [...] comparison, dividing food/cost share. Obtain colonoscopy from [facility]. 3. Gif in 6-8 weeks. I spent [...] 09:47 am) Patient Info ID #: ? [id number] ?: ??[birth year] (55 yrs) Name: ? SHOBHA DÍAZ ? Visit Date: 09/03/2015 09:36 am Performed By Performed By: ? Rosalie Tellez RDMS Attending: ?Hiren LUNDY, Misti Associate: ?Shira Guevara DO Referred By: ?DIETER LOGAN MD Service(s) Provided ??UABDLIM - Abdominal Limited Survey Single ? 13750 ??Organ or Quadrant - [id number] Indications ??ruq pain, ?gb stones ?gb inflammation [...] 09/03/2015 09:47 am) Patient Info ID #: [id number] : [birth year] (55 yrs) Name: SHOBHA DÍAZ Visit Date: 09/03/2015 09:36 am Performed By Performed By: Rosalie Tellez RDMS Attending: Misti Maradiaga MD Associate: Shira Guevara DO Referred By: DIETER LOGAN MD Service(s) Provided UABDLIM - Abdominal Limited Survey Single 92429 Organ or Quadrant - [id number] Indications ruq pain, ?gb stones ?gb inflammation [...] 10:29 AM EST) Neutrophil % 55.4 % [facility] Neutrophil Absolute 3.61 1.50 - 6.30 x10(3)/[facility] Lymph % 35.5 % [facility] Lymphocytes Abs 2.3 1.0 - 3.6 x10(3)/[facility] Monocyte % 7.1 % [facility] Monocyte Abs 0.5 0.2 - 1.0 x10(3)/[facility] Eos % 1.5 % [facility] Eosinophils Abs 0.1 0.0 - 0.5 x10(3)/[facility] Basophil % 0.3 % [facility] Baso Absolute 0.0 0.0 - 0.2 x10(3)/[facility] Immature Gran % 0.20 % [facility] Comment: Immature granulocytes(IG's)percentage and absolute count will include metamyelocytes, myelocytes, and promyelocytes. Blood smears from CBCs yielding IG's will be scanned manually for concordance. If this scan disagrees with the automated IG or if promyelocytes are noted, a manual differential will be performed. Immature Gran Absolute 0.01 0.00 - 0.05 x10(3)/[facility] Blood specimen (specimen) 08/05/2015 10:29 AM EST 08/05/2015 10:42 AM EST Narrative Resulting Agency Comment Spec In Lab Dieter Logan MD HEMATOLOGY ORDERABLE S [facility] [place] [address] * Hemogram (08/05/2015 10:29 AM EST) [facility] White Blood Cell 6.5 4.0 - 10.0 x10(3)/[facility] Red Blood Cell 4.52 3.93 - 5.22 x10(6)/[facility] Hemoglobin 12.9 11.2 - 15.7 gm/dL [facility] Hematocrit 39.3 34.0 - 45.0 % [facility] Mean Cell Volume 86.9 79.0 - 94.0 fL [facility] Mean Cell Hemoglobin 28.5 26.6 - 32.2 pg [facility] Mean Cell Hemoglobin Concentration 32.8 32.0 - 36.5 gm/dL [facility] Platelet 223 145 - 370 x10(3)/[facility] RDW Standard Deviation 43.3 35.0 - 46.0 fL [facility] RDW coefficient of variation 13.6 10.9 - 14.4 % [facility] Mean Platelet Volume 10.3 9.0 - 12.0 fL [facility] Blood specimen (specimen) 08/05/2015 10:29 AM EST 08/05/2015 10:42 AM EST Narrative Resulting Agency Comment Spec In Lab Dieter Logan MD HEMATOLOGY ORDERABLE S [facility] [place] [address] * Tissue transglutaminase, IgA (08/05/2015 10:29 AM EST) [facility] TTG IgA Ab 0.3 0.1 - 10.0 u/ml [facility] Comment: New methodology as of 09-30-2014 Negative = <7 U/mL Equivocal = 7-10 U/mL Positive = >10 U/mL Blood specimen (specimen) 08/05/2015 10:29 AM EST 08/05/2015 1:54 PM EST Narrative Resulting Agency Comment Spec In Lab Dieter Logan MD IMMUNOLOGY ORDERABLE S Performing Organization Address [facility] Co de Phone Number [facility] [place] [address] * TSH (08/05/2015 10:29 AM EST) Thyroid Stimulating Hormone 1.35 0.27 - 4.20 mcIU/mL [facility] Blood specimen (specimen) 08/05/2015 10:29 AM EST 08/05/2015 10:42 AM EST Narrative Resulting Agency Comment Spec In Lab Dieter Logan MD CHEMISTRY ORDERABLES Performing Organization Address [facility] de Phone Number [facility] [place] [address] * Comprehensive metabolic panel (non-fasting) (08/05/2015 10:29 [...] intervals supplied above were not validated at [facility]. Results from pediatric patients should be interpreted [...] LABORATORY Est Glomerular Filtration Rate >60 >=60 [facility] Comment: This estimated GFR (eGFR) [...] the following links into your internet browser. [email or web address] Blood specimen (specimen) 08/05/2015 10:29 AM EST 08/05/2015 10:42 AM EST Narrative Resulting Agency Comment Spec In Lab Dieter Logan MD CHEMISTRY ORDERABLES [facility] [place] [address] documented in this encounter Visit Diagnoses Diagnosis Constipation, unspecified constipation type Gastroesophageal reflux disease, esophagitis presence not specified RUQ pain Abdominal pain, right upper quadrant RUQ pain Abdominal pain, right upper quadrant documented in this encounter Care Teams Coverstitch Binder Relationship Specialty Start Date End Date Gina Morales MD HOSPITALIST SERVICES [address] [place] [address] [place] [address] PCP - General 01/29/14 04/05/16 documented as of this encounter
--- OUTSIDE RECORDS SUMMARY | 2024-07-04 00:34 | XMS_ITS | Encounter Summary ---
Author Organization [facility] Address [facility] [place] [address] Care Team Providers Care Terra Cotta Setter Name Role Phone Unknown Primary Care Provider Unavailabl e Reason for Referral * Physical Therapy (Routine) - Closed Specialty Diagnoses / Procedures Referred By Yomi morales Referred To Contact Physical Therapy Diagnoses Urinary incontinence, urge Fecal incontinence Pelvic floor weakness in female Casey Tellez MD [facility] OBSTETRICS [place] [address] Referral ID Status Reason Start Date Expiration Date V isits Requested Visits Authorized [id number] Closed Evaluate and Treat 01/28/2014 07/27/2014 1 1 Reason for Visit * Reason Comments Follow-up Encounter Details Date Type Department Care Team (Late st Contact Info) Description 01/28/2014 11:00 AM EDT Follow-Up Obstetrics [place] [address] Casey Tellez MD [facility] OBSTETRICS [place] [address] Urinary incontinence, urge (Primary Dx); Fecal incontinence; [...] URINE DIPSTICK Component Value Range POC Sp [place] 1.002 - 1.030 POC pH, UA 5.0 [...] prolapse documented in this encounter Care Teams Terra Cotta Setter Relationship Specialty Start Date End Date Unknown None PCP - General 01/28/14 01/28/14 documented as of this encounter
--- OUTSIDE RECORDS SUMMARY | 2024-07-04 00:34 | XMS_ITS | Encounter Summary ---
Author Organization [facility] [place] [address] Care Team Providers Care Service Dispatcher Name Role Phone Gina Morales MD Primary Care Provider [phone] Encounter Details Date Type Department Care Team (Late st Contact Info) Description 08/23/2013 Orders Only Obstetrics [place] [address] Lela Jaramillo RN Prophylactic antibiotic [...] antibiotics documented in this encounter Care Teams Service Dispatcher Relationship Specialty Start Date End Date Gina Morales MD HOSPITALIST SERVICES [address] [place] [address] [place] [address] PCP - General 01/18/11 01/27/14 documented as of this encounter
--- OUTSIDE RECORDS SUMMARY | 2024-07-04 00:34 | XMS_ITS | Encounter Summary ---
Author Organization [facility] [place] [address] Care Team Providers Care Forming Machine Upkeep Mechanic Helper Name Role Phone Shashi Verma Primary Care Provider [phone] Reason for Referral * Diagnostic Test (Routine) Specialty Diagnoses / Procedures Referred By Contac t Referred To Contact Radiology Diagnoses Pelvic floor dysfunction Procedures MRI Pelvis Soft Tissue (Gi Gu Cone Baker Machine)WO Contrast MRI Pelvis Soft Tissue(Gi Gu Cone Baker Machine)WWO Contrast Yossi Morales APRN [facility] [place] [address] [place] [address] Referral ID Status Reason Start Date Expiration Date V isits Requested Visits Authorized [id number] Specialty Service Requested 04/12/2016 07/11/2016 1 1 Reason for Visit * Diagnostic Test (Routine) Specialty Diagnoses / Procedures Referred By Contac t Referred To Contact Radiology Diagnoses Pelvic floor dysfunction Procedures MRI Pelvis Soft Tissue (Gi Gu Cone Baker Machine)WO Contrast MRI Pelvis Soft Tissue(Gi Gu Cone Baker Machine)WWO Contrast Yossi Morales [facility] [place] [address] [place] [address] Referral ID Status Reason Start Date Expiration Date V isits Requested Visits Authorized [id number] Specialty Service Requested 04/12/2016 07/11/2016 1 1 Encounter Details Date Type Department Care Team (Latest Contact Info) Description 04/18/2016 12:55 PM EST - 04/18/2016 11:59 PM EST Hospital Encounter MRI at [facility] [place] [address] Erik Phillips MD Pelvic floor dysfunction Discharge Disposition: Home Social [...] Diagnosis Comments MRI PELVIS SOFT TISSUE (GI ARTS AND CRAFTS INSTRUCTOR) WO CONTRAST Routine 04/18/2016 2:33 PM EST Pelvic floor dysfunction documented in this encounter Results * MRI Pelvis Soft Tissue (Gi Gu Cone Baker Machine)WO Contrast (04/18/2016 2:33 PM EST) Anatomical Region Laterality Modality Pelvis Magnetic Resonan ce Impressions 04/18/2016 3:13 PM EST Anterior compartment: mild (2-4cm) descent. Urethral hypermobility with cystocele. Middle compartment: Normal (0-2cm). Posterior compartment: Marked (>6cm) descent. ??Rectocele, as above. ??No enterocele.Peritoneocele, as above. Rectal prolapse:Internal mucosal Narrative 04/18/2016 3:13 PM EST EXAMINATION: MRI PELVIS SOFT TISSUE (GI ARTS AND CRAFTS INSTRUCTOR) WO CONTRAST CLINICAL HISTORY: pelvic mri with [...] 04/18/2016 EXAMINATION: MRI PELVIS SOFT TISSUE (GI ARTS AND CRAFTS INSTRUCTOR) WO CONTRAST CLINICAL HISTORY: pelvic mri with [...] wasting documented in this encounter Care Teams Forming Machine Upkeep Mechanic Helper Relationship Specialty Start Date End Date Shashi Verma [address] [place] [address] PCP - General Family Medicine 04/06/16 01/14/20 documented as of this encounter
--- OUTSIDE RECORDS SUMMARY | 2024-07-04 00:34 | XMS_ITS | Encounter Summary ---
Author Organization [facility] Address [facility] [place] [address] Care Team Providers Care Seed Analyst Name Role Phone Gina Morales MD Primary Care Provider [phone] Encounter Details Date Type Department Care Team (Late st Contact Info) Description 09/07/2011 1:00 PM EDT Office [place] [phone] Martin Gonzalez, PT [facility] PHYSICAL MEDICINE & [place] [address] Delmer Velasco MD [facility] [place] [address] Urinary, incontinence, stress female; Muscle weakness Discharge [...] to avoid them to protect repair. 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 Patient to be independent with ongoing self management. 2. Patient will have decreased number of urinary incontinence by 50%. 3. ADL???s not limited by UI, urgency or frequency. Frequency: 1 time in 4 weeks for 4 sessions, per patient request [facility] [...] encounter Miscellaneous Notes * Miscellaneous - Abisai, Instructional Support Assistant - 02/17/2012 12:23 PM EDT documented in this encounter Plan of Treatment Not on file documented as of this encounter Visit Diagnoses Diagnosis Urinary, incontinence, stress female Female stress incontinence Muscle weakness Muscle weakness (generalized) documented in this encounter Care Teams Seed Analyst Relationship Specialty Start Date End Date Gina Morales MD [facility] [address] [place] [address] [place] [address] PCP - General 01/18/11 01/27/14 documented as of this encounter
--- OUTSIDE RECORDS SUMMARY | 2024-07-04 00:34 | XMS_ITS | Encounter Summary ---
Author Organization [facility] [place] [address] Care Team Providers Care Wig Comber Name Role Phone Gina Morales MD Primary Care Provider [phone] Reason for Visit * Reason Onset Date Comments Follow-up 02/24/2015 Encounter Details Date Type Department Care Team (Late st Contact Info) Description 02/24/2015 Telephone Obstetrics [place] [phone] Lela Jaramillo, RN Follow-up Social History Tobacco [...] on filedocumented in this encounter Care Teams Wig Comber Relationship Specialty Start Date End Date Gina Morales MD [facility] [address] [place] [address] [place] [id number] PCP - General 01/29/14 04/05/16 documented as of this encounter
--- OUTSIDE RECORDS SUMMARY | 2024-07-04 00:34 | XMS_ITS | Encounter Summary ---
Author Organization [facility] Address [facility] [place] [address] Care Team Providers Care Medicine Aide Name Role Phone Gina Morales MD Primary Care Provider [phone] Reason for Visit * Auth/Cert Specialty Diagnoses / Procedures Referred By Yomi t Referred To Contact Diagnoses gerd Procedures PRO UPPER GI ENDOSCOPY, DIAGNOSTIC EGD, UPPER GI ENDOSCOPY Referral ID Status Reason Start Date Expiration Date Visits Re quested Visits Authorized [id number] 1 1 Encounter Details Date Type Department Care Team (Latest Contact Info) Description 09/03/2015 9:54 AM EDT - 09/03/2015 12:45 PM EDT Hospital Encounter [place] [phone] Kain Kimball MD [facility] [place] [address] Discharge Disposition: Home Social History Tobacco Use [...] expected. Who to call Same Day Endoscopy [phone] [id number] M-F Otherwise contact [phone] and ask to speak to the relay associate senior economist. Follow-up care is a pena part of [...] Report (09/03/2015 12:17 PM EDT) Final Diagnosis [id number] ? Location: 4T; 09; A The signing [...] Sections/Processing: (T1) ??aml 09/08/2015 1:56 PM EDT [facility] GI Biopsy 09/03/2015 12:1 7 PM EDT 09/03/2015 12:17 PM EDT GI Biopsy 09/03/2015 12:1 7 PM EDT 09/03/2015 12:17 PM EDT GI Biopsy 09/03/2015 12:1 7 PM EDT 09/03/2015 12:17 PM EDT Kain Kimball MD PATHOLOGY/CYTOLOGY O RDERABLES [facility] [place] [address] * Specimen to Pathology (surgical or derm) (09/03/2015 12:17 PM EDT) AP Specimen 09/03/2015 12:1 7 PM EDT 09/03/2015 12:17 PM EDT Narrative [facility] - 09/03/2015 12:17 PM EDT Specimen requisition ordered. ??Separate Pathology report to follow Kain Kimball MD PATHOLOGY/CYTOLOGY O ABBIE Performing Organization Address [facility] [place] [address] * Specimen to Pathology (surgical or derm) (09/03/2015 12:17 PM EDT) AP Specimen 09/03/2015 12:1 7 PM EDT 09/03/2015 12:17 PM EDT Narrative [facility] - 09/03/2015 12:17 PM EDT Specimen requisition ordered. ??Separate Pathology report to follow Kain Kimball MD PATHOLOGY/CYTOLOGY O ABBIE Performing Organization Address [facility] [place] [address] * Specimen to Pathology (surgical or derm) (09/03/2015 12:17 PM EDT) AP Specimen 09/03/2015 12:1 7 PM EDT 09/03/2015 12:17 PM EDT Narrative [facility] - 09/03/2015 12:17 PM EDT Specimen requisition ordered. ??Separate Pathology report to follow Kain Kimball MD PATHOLOGY/CYTOLOGY O ABBIE Performing Organization Address [facility] [place] [address] * UPPER GI ENDOSCOPY (09/03/2015 11:56 AM EDT) UPPER GI ENDOSCOPY [facility] Endoscopy Patient Name: Shobha Ramírez ? Procedure Date: 09/03/2015 11:56 AM ? Date of : 1960 ? Age: 55 ? Order #: [id number] ? Procedure: ? Upper GI endoscopy Indications: [...] Procedure Code(s): ?? --- Professional --- ? 02866, Esophagogastroduo denoscopy, ? flexible, transoral; with biopsy, ? single or multiple CPT copyright 2014 [employer]. All rights reserved. The codes documented in this report are preliminary and upon cheesemaking laborer review may be revised to meet current [...] RN) documented in this encounter Care Teams Medicine Aide Relationship Specialty Start Date End Date Gina Morales MD [facility] [address] [place] [address] [place] [address] PCP - General 01/29/14 04/05/16 documented as of this encounter
--- OUTSIDE RECORDS SUMMARY | 2024-07-04 00:35 | XMS_ITS | Encounter Summary ---
Author Organization [facility] [place] [address] Care Team Providers Care Clinical Resource Nurse Name Role Phone Gina Morales MD Primary Care Provider [phone] Encounter Details Date Type Department Care Team (Late st Contact Info) Description 03/28/2011 11:30 AM EDT Office Visit [place] [phone] Lacey Sidhu, [place] Social History Tobacco Use [...] on filedocumented in this encounter Care Teams Clinical Resource Nurse Relationship Specialty Start Date End Date Gina Morales MD HOSPITALIST SERVICES [address] [place] [address] [place] [address] PCP - General 01/18/11 01/27/14 documented as of this encounter
--- OUTSIDE RECORDS SUMMARY | 2024-07-04 00:35 | XMS_ITS | Encounter Summary ---
Author Organization [facility] Address [facility] [place] [address] Care Team Providers Care Siebel Architect Name Role Phone Gina Morales MD Primary Care Provider Reason for Visit * Reason Comments Pre-op Exam Encounter Details Date Type Department Care Team (Late st Contact Info) Description 03/22/2011 10:30 AM EDT Office Visit Obstetrics [place] [address] Devi Regalado APRN [facility] OBSTETRICS & [place] [address] Pre-op exam (Primary Dx) Discharge Disposition: Home [...] unspecified documented in this encounter Care Teams Siebel Architect Relationship Specialty Start Date End Date Gina Morales MD HOSPITALIST SERVICES [address] [place] [address] [place] [address] PCP - General 01/18/11 01/27/14 documented as of this encounter
--- OUTSIDE RECORDS SUMMARY | 2024-07-04 00:35 | XMS_ITS | Encounter Summary ---
Author Organization [facility] Address [facility] [place] [address] Care Team Providers Care Furniture Packer Name Role Phone Gina Morales MD Primary Care Provider [phone] Encounter Details Date Type Department Care Team (Latest Contact Info) Description 03/22/2011 12:43 PM EDT - 03/22/2011 11:59 PM EDT [place] [phone] Delmer Velasco MD [facility] [place] [address] Discharge Disposition: Home Social History Tobacco Use [...] MILLENNIUM Monocyte Abs 0.5 0.2 - 1.0 x10(3)/[facility] CERNER MILLENNIUM Eos % 2.9 0.0 - 7.0 % CERNER MILLENNIUM Eosinophils Abs 0.1 0.0 - 0.5 x10(3)/[facility] CERNER MILLENNIUM Basophil % 0.2 0.0 - 2.0 % CERNER MILLENNIUM Baso Absolute 0.0 0.0 - 0.2 x10(3)/[facility] CERNER MILLENNIUM Immature Gran % 0.20 0.00 - 0.66 % CERNER MILLENNIUM Comment: Immature granulocytes(IG's)percentage and absolute count will include metamyelocytes, myelocytes, and promyelocytes. Blood smears from CBCs yielding IG's will be scanned manually for concordance. If this scan disagrees with the automated IG or if promyelocytes are noted, a manual differential will be performed. Immature Gran Absolute 0.01 0.00 - 0.05 x10(3)/[facility] CERNER MILLENNIUM Blood specimen (specimen) 03/22/2011 1:00 PM EDT 03/22/2011 1:26 PM EDT Delmer Velasco MD [facility]ABLE S [facility] MILLEN[facility] * (ABNORMAL) Creatinine, serum [...] Velasco MD CHEMISTRY ORDERABLES Performing Organization Address [facility] de Phone Number [facility] Clean PETENNIUM * BUN (03/22/2011 1:00 PM EDT) Blood Urea Nitrogen 8 8 - 18 mg/dL CERNER MILLENNIUM Blood specimen (specimen) 03/22/2011 1:00 PM EDT 03/22/2011 1:26 PM EDT Delmer Velasco MD CHEMISTRY ORDERABLES Performing Organization Address [facility] de Phone Number [facility] MILLENNIUM * (ABNORMAL) Electrolytes panel (03/22/2011 1:00 [...] Velasco MD CHEMISTRY ORDERABLES Performing Organization Address [place]/[facility]/ZIP Co de Phone Number CERFERNANDO MORRISIUM * [...] MD HEMATOLOGY ORDERABLE S Performing Organization Address [facility] Co de Phone Number MIGUELITO ZAMAN documented in this encounter Visit Diagnoses Not on filedocumented in this encounter Care Teams Furniture Packer Relationship Specialty Start Date End Date Gina Morales MD HOSPITALIST SERVICES [address] [place] [address] [place] [address] PCP - General 01/18/11 01/27/14 documented as of this encounter
--- OUTSIDE RECORDS SUMMARY | 2024-07-04 00:35 | XMS_ITS | Encounter Summary ---
Author Organization [facility] Address [facility] [place] [address] Care Team Providers Care Plant Operator Name Role Phone Gina Morales MD Primary Care Provider [phone] Encounter Details Date Type Department Care Team (Late st Contact Info) Description 03/28/2011 12:39 PM EDT Anesthesia Event [place] [phone] Jerman Huertas MD [facility] [place] [address] Skinny Sims MD Anesthesia Record Procedure Summary Procedure Name Responsible [...] 0000 by Lurdes Valle RN 03/29/11929 by Primitivo Patel RN (RETIRED) Peripheral IV Line - Single [...] Performed: HYSTERECTOMY, VAGINAL, <250 GRAMS - Also: 47878: Intraperitoneal colpopexy 60614: Anterior / posterior colporrhaphy 25652: midurethral sling Full bladder cough stress test at preop; COLPOPEXY, VAGINAL, INTRAPERITONEAL APPROACH; URETHRAL SUSPENSION, SLING\FASCIA OR SYNTHETIC; COLPORRHAPHY, POST RECTOCELE WITH OR W\O PERINEORRHAPHY Patient location: [facility] Surgical Floor Post-op pain: Adequate analgesia [...] Cardiovascular Exercise tolerance: poor (-) hypertension, past [place], CAD, CHF and orthopnea Neuro/Psych (+) psychiatric [...] on filedocumented in this encounter Care Teams Plant Operator Relationship Specialty Start Date End Date Gina Morales MD HOSPITALIST SERVICES [address] [place] [address] [place] [address] PCP - General 01/18/11 01/27/14 documented as of this encounter
--- OUTSIDE RECORDS SUMMARY | 2024-07-04 00:35 | XMS_ITS | Encounter Summary ---
Author Organization [facility] Address [facility] [place] [address] Care Team Providers Care Clinical Lab Technologist Name Role Phone Gina Rodgers MD Primary Care Provider Encounter Details Date Type Department Care Team (Late st Contact Info) Description 03/28/2011 12:16 PM EDT - 03/28/2011 4:52 PM EDT Surgery [place] [address] Delmer Tellez MD [facility] OBSTETRICS [place] [address] HYSTERECTOMY, VAGINAL, <250 GRAMS (WRVU 14.15) Social [...] EDT PATIENT DISCHARGE INSTRUCTIONS UroGynecology phone number: [phone] Call your doctor if you develop: --A [...] 03/29/2011 4:54 PM EDT 4PM called by SR. MEDIA MANAGER pharmacist intern indicating that Ms Darrell meeks no ride [...] to assess at home. Referral sent to [facility] via e- discharge for activation on [...] No vaginal drainage noted. * Rubén Gay A - 03/28/2011 10:03 PM EDT Gynecology [...] Date 03/28/11 07 - 03/29/11 0659 Shift [phone] 24 Hour Total I N T A [...] Gay - 03/28/2011 11:06 AM EDT Inpatient WATERSHED PROGRAM MANAGER - Admission Interval Note I have reviewed [...] Office of Care Management (OCM) / Clinical Loading Machine Adjuster (CRC)/ Initial Assessment Discussed patient with Provider [...] , 51 yea rold female residing in [place], [place] alone in a second floor apartment. She has friends who will pick her up at discharge. 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 ADVANCE DIRECTIVES: None on file. INSURANCE COVERAGE / FINANCIAL ISSUES: [facility] with copays for prescriptions. CURRENT HOME/COMMUNITY SERVICES/EQUIPMENT: DME: Denies any Home Health Agency: None Other: PATRON ATTENDANT REFERRAL: No issues identified at this time. PRIMARY CARE PHYSICIAN: GINA RODGERS MD [address] / [place] [address] POTENTIAL DISCHARGE NEEDS: None anticipated at this [...] Tellez MD - 03/28/2011 4:31 PM EDT [facility] [place] Patient Name: Shobha Díaz : [id number] MR#: [id number] Case Date: 03/28/2011 Surgeon: Surgeon(s) and Role: * DELMER TELLEZ MD - Primary * RUBÉN GAY MD - Resident-Property Damage Claims Adjustor Preoperative diagnosis: Uterovaginal prolapse, incomplete Postoperative diagnosis: [...] colpotomy was performed with sharp dissection. A [place] retractor was used to displace the bladder [...] used to reapproximate the full-thickness vaginal wall [id number]. This was continued out to the perineal body. Care was taken to avoid any excessive narrowing of the vaginal introitus. Sponge and needle counts were correct at the end of the procedure. * Discharge Summary - Seferino Bull MD - 03/28/2011 4:10 PM EDT Inpatient WATERSHED PROGRAM MANAGER - Discharge Summary Patient Name: Shobha Díaz [...] for hysterectomy with prolapse repair was made. [place] ligament versus mesh repairs were discussed with [...] Instructions PATIENT DISCHARGE INSTRUCTIONS UroGynecology phone number: [phone] Call your doctor if you develop: --A [...] Center: 05/10/2011 3:00 PM Delmer Tellez MD [facility] Welding Equipment Repairer Supervisor [phone] [facility] 05/10/2011 3:00 PM Elizabeth Grigsby APRN [facility] Welding Equipment Repairer Supervisor [phone] [facility] Future Orders Please Complete By Expires Referral to Home Health [[id number] CPT(R)] Process Instructions: Scheduling Instructions: Comments: DOCUMENTATION FOR VNA SERVICES (INCLUDING THOSE PATIENTS WITH MEDICARE COVERAGE REQUIRING HOME VNA SERVICES AND/OR HOSPICE SERVICES) PATIENT'S LOCATION: Shobha Díaz [address] [place] [phone] (home) Track Service Person's Name: Patient In discussion with the attending physician, it is certified that this patient is under their care and that they, or a nurse practitioner, clinical nurse specialist or physician's retail sales assistant who is working directly with them, [...] activity, coping. . HOME HEALTH CARE AGENCY: [facility]. PHONE: [phone] FAX: [phone] Start of care: Day after discharge (03-31-11) Please note that any additional orders needs or changes will need to be obtained from this patient's PCP: GINA RODGERS MD [address] / [place] [id number] All [facility] agencies which cover the area of patient's residence have been reviewed, either verbally bhanu writing, and patient/family have chosen the home health care agency noted Questions: Responses: Agency name and contact information [facility] Patient location post discharge zhomr What services are requested Registered Nurse Start date 03/31/2011 Responsible MD post discharge contact info PCP Discharge patient [ADT8 Custom] Process Instructions: Scheduling Instructions: Comments: Discharge to home Questions: Responses: Call to speak to SR. MEDIA MANAGER resident human resources operations specialist for: [[id number] Custom] Process Instructions: Scheduling Instructions: Comments: - For temperature greater than 38.3 degrees C or fever/chills - Nausea or vomiting preventing PO intake - Vaginal bleeding requiring more than 1 sanitary pad every hour - Pain not controlled by prescription medications - Inability to void Questions: Responses: Provider Contact Information: GINA RODGERS MD [phone] Discharge References/Attachments: Discharge References/Attachments None Signed: SEFERINO [...] Operative Note Patient Name: Shobha Díaz : [id number] MR#: [id number] Case Date: 03/28/2011 Surgeon: Surgeon(s) and Role: * DELMER TELLEZ MD - Primary * RUBÉN GAY MD - Resident-Property Damage Claims Adjustor Preoperative diagnosis: Uterovaginal prolapse, incomplete Postoperative diagnosis: [...] Delmer Tellez MD [facility]ABLE S [facility] * (ABNORMAL) CBC (with Diff) (03/30/2011 [...] Tellez MD CHEMISTRY ORDERABLES Performing Organization Address [facility] Co de Phone Number MIGUELITO MORRISIUM * BUN (03/30/2011 3:30 AM EDT) Blood Urea Nitrogen 11 8 - 18 mg/dL CERNER MILLENNIUM Comment:result rechecked-AFP Blood specimen (specimen) 03/30/2011 3:30 AM EDT 03/30/2011 3:52 AM EDT Delmer Tellez MD CHEMISTRY ORDERABLES Performing Organization Address [facility] de Phone Number MIGUELITO BOLTONENNIUM * [...] Tellez MD CHEMISTRY ORDERABLES Performing Organization Address [facility]/ZIP Co de Phone Number MIGUELITO MORRISIUM * [...] Delmer Tellez MD HEMATOLOGY ORDERABLE S [facility] * (ABNORMAL) Electrolytes panel (03/29/2011 2:24 PM EDT) Pathologist [facility] Sodium 124(L) 135 - 145 mmol/L CERNER [...] EDT Delmer Tellez MD CHEMISTRY ORDERABLES CERFERNANDO OBLTONENNIUM * (ABNORMAL) A-DIFF (03/29/2011 5:08 AM EDT) [...] Delmer Tellez MD HEMATOLOGY ORDERABLE S CERFERNANDO [facility] * (ABNORMAL) CBC (with Diff) (03/29/2011 5:08 [...] Delmer Tellez MD HEMATOLOGY ORDERABLE S CERNER [facility] * (ABNORMAL) Creatinine, serum (03/29/2011 5:08 AM [...] Tellez MD CHEMISTRY ORDERABLES Performing Organization Address [facility] de Phone Number [facility]UM * (ABNORMAL) BUN (03/29/2011 5:08 AM EDT) Blood Urea Nitrogen 6(L) 8 - 18 mg/dL CERNER MILLENNIUM Blood specimen (specimen) 03/29/2011 5:08 AM EDT 03/29/2011 5:15 AM EDT Delmer Tellez MD CHEMISTRY ORDERABLES Performing Organization Address [facility] Co de Phone Number [facility] * (ABNORMAL) Electrolytes panel (03/29/2011 5:08 AM [...] Pathology Report (03/28/2011 2:08 PM EDT) Pathologist [facility] Surgical Pathology Report [id number] ? Location: [facility]; [facility]; The signing pathologist has (i) [...] foci are present, averaging 0.1 cm. ?Myometrium: ?[place], smooth to finely reticulated. ? Thickness: ?Up to 2.0 cm. ? Lesions: ?Well-circumscri bed, yellow-white, ? intramural fibroid nodules present, ? varying from 0.2 to 1.6 cm without evidence ? of hemorrhage or necrosis. ?Uterine serosa: ?Red posteriorly, focally hemorrhagic. ?Cervix: ?The 3.3 x 3.9-to-pq-diamete r cervix is a ? pink, congested and smooth mucosa ? surrounding a 0.8-be-as-diamete r patulous ? os. ??In the cervical canal is a briones, ? congested, focally hyperemic lining with ? scattered, gelatinous cysts averaging ? 0.2 cm. Sections/Processi ng: ? Internet Marketing Specialist sections are submitted as follows: ??(1) anterior cervix; (2) posterior cervix; (3) anterior endometrium; (4) posterior endometrium; (5) counter sales representative intramural fibroid nodule; (6) posterior [...] in rendering the final pathologic diagnosis. [facility] 03/28/2011 2:08 PM EDT Delmer Tellez MD PATHOLOGY/CYTOLOGY O ABBIE Performing Organization Address [facility] de Phone Number [facility] * Specimen to Pathology (surgical or derm) (03/28/2011 1:58 PM EDT) AP Specimen 03/28/2011 1:58 PM EDT 03/28/2011 1:58 PM EDT Narrative [facility] - 03/28/2011 1:58 PM EDT Specimen requisition ordered. ??Separate Pathology report to follow Delmer Tellez MD PATHOLOGY/CYTOLOGY O ABBIE Performing Organization Address [facility] Co de Phone Number [facility] * Duplex for DVT, Leg, Unilat (03/28/2011 11:06 AM EDT) VB Text Report Department: Vascular Surgery Lab Patient: [id number] (SHOBHA DÍAZ) CPT Code: 11750 ICD-9: 729.5 Referring Physician: DELMER TELLEZ Indication: [...] Routine documented in this encounter Care Teams Clinical Lab Technologist Relationship Specialty Start Date End Date Gina Rodgers MD HOSPITALIST SERVICES [address] [place] [address] [place] [address] PCP - General 01/18/11 01/27/14 documented as of this encounter
--- OUTSIDE RECORDS SUMMARY | 2024-07-04 00:35 | XMS_ITS | Encounter Summary ---
Author Organization [facility] Address [place] [address] Care Team Providers Care In School Suspension Aide Name Role Phone Gina Morales MD Primary Care Provider Encounter Details Date Type Department Care Team (Late st Contact Info) Description 03/22/2011 1:00 PM EDT Clinical Support Same Day at [facility] [place] [id number] Pre-op exam Social History Tobacco Use Types [...] (Bezet) 416 ms MUSE SYSTEM Calculated P Harrison 53 degrees MUSE SYSTEM Calculated R Harrison 62 degrees MUSE SYSTEM Calculated T Harrison 45 degrees MUSE SYSTEM INTERPRETATION Sinus bradycardia Otherwise normal ECG No previous ECGs available Confirmed by fellow MD Dale, Scar ([id number]) on 03/23/2011 11:34:48 AM Confirmed by MD Dennis, José ([id number]) on 03/23/2011 3:58:42 PM MUSE SYSTEM 03/22/2011 1:05 PM EDT 03/23/2011 3:58 PM EDT Delmer Velasco MD ECG ORDERABLES MUSE SYSTEM documented in this encounter Visit Diagnoses Diagnosis Pre-op exam Preoperative examination, unspecified documented in this encounter Care Teams In School Suspension Aide Relationship Specialty Start Date End Date Gina Morales MD HOSPITALIST SERVICES [address] [place] [address] [place] [address] PCP - General 01/18/11 01/27/14 documented as of this encounter
--- OUTSIDE RECORDS SUMMARY | 2024-07-04 00:35 | XMS_ITS | Encounter Summary ---
Author Organization [facility] [place] [address] Care Team Providers Care Automatic Lathe Tender Name Role Phone Gina Morales MD Primary Care Provider [phone] Encounter Details Date Type Department Care Team (Late st Contact Info) Description 01/18/2011 Abstract Obstetrics [place] [id number] Pao Vuong, RN Social History Tobacco Use [...] filedocumented in this encounter Care Teams Automatic Lathe Tender Relationship Specialty Start Date End Date Gian Morales MD HOSPITALIST SERVICES [facility] [place] [address] PCP - General 01/18/11 01/27/14 documented as of this encounter
--- OUTSIDE RECORDS SUMMARY | 2024-07-04 00:35 | XMS_ITS | Encounter Summary ---
Author Organization [facility] Address [facility] [place] [address] Care Team Providers Care Jury Consultant Name Role Phone Derek Rodgers MD Primary Care Provider [phone] Reason for Visit * Reason Comments Uterine Prolapse Urinary Incontinence Encounter Details Date Type Department Care Team (Late st Contact Info) Description 01/19/2011 1:15 PM EDT Office Visit Obstetrics [place] [address] Casey Velasco MD [facility] [place] [address] Urinary incontinence (Primary Dx); Fecal incontinence; Uterovaginal [...] Female Pelvic Medicine and Reconstructive Surgery @ [facility] Patient Name: Shobha Ramírez Patient Primary Care [...] test (empty supine): negative External Genitalia: Vulva, Camak's and Bartholin glands normal, urethra without tenderness [...] hysterectomy with any prolapse repair. We reviewed [place] ligament versus meshrepairs and the pros/ cons [...] with 40 minutes of the time spent [id number] in discussing her diagnosis and reviewing options [...] * POCT urine dipstick (01/19/2011) POC Sp [place] 1.002 - 1.030 POC pH, UA 5.0 [...] incomplete documented in this encounter Care Teams Jury Consultant Relationship Specialty Start Date End Date Derek Rodgers MD HOSPITALIST SERVICES [address] [place] [address] [place] [address] PCP - General 01/18/11 01/27/14 documented as of this encounter
--- NOTE | 2024-07-25 | DI.RAD_ITS ---
Exam(s) XR HIP RT COMPLETE AP PELVIS EXAM: XR HIP RT COMPLETE AP PELVIS CLINICAL HISTORY: Pain in rt hip, M25.551. TECHNIQUE: 2D digital imaging was performed. Three views FINDINGS: BONES: No acute fracture is present. No bony destructive lesion is seen. Small enthesophytes are no [place] at the greater trochanters and iliac wings. JOINTS: No dislocation present. The hip joint spaces are maintained. There is mild acetabular spur ring. The SI joints pubic symphysis are unremarkable. There are veins degenerative changes of the l ower lumbar spine. SOFT TISSUE: Normal. IMPRESSION: Mild degenerative changes of the hips. DATA REPOSITORY: RADIATION DOSE DELIVERED:
== END 2024-07-25 02:24 ==
PROVIDERS: PCP Physician Assistant Medical; Visit Provider Physician Assistant Medical
DX: M16.0 Bilateral primary osteoarthritis of hip (principal)
CPT/HCPCS: 73502

== ENCOUNTER 2024-07-31 11:42 | Outpatient (REF) | payer MEDICAID, SELFPAY ==
[2024-07-31 17:03] LABS: TSH (W/Ref FT4) 1.95 uIU/mL (0.36-3.74); Vitamin B12 930 pg/mL (193-986)
[2024-07-31 17:54] LABS: Hemoglobin A1C 5.7 % (<5.7)
== END 2024-07-31 11:43 | disposition home or self-care (01) ==
LOC: NCHCN 11:42
PROVIDERS: PCP Physician Assistant Medical; Visit Provider Physician Assistant Medical
DX: R41.3 Other amnesia (principal); R73.03 Prediabetes; F32.9 Major depressive disorder, single episode, unspecified
CPT/HCPCS: 82607; 83036; 84443

== ENCOUNTER 2024-10-09 18:00 | Outpatient (REF) | payer MEDICAID, SELFPAY ==
[2024-10-09 21:30] LABS: Abs Immature Grans 0.02 10^3/uL (0.0-0.06); Absolute Basophil Count 0.02 10^3/uL (0.0-0.2); Absolute Lymphocyte Count 1.74 10^3/uL (1.2-3.4); Absolute Monocyte Count 0.46 10^3/uL (0.1-0.8); Absolute Neutrophil Count 2.64 10^3/uL (1.2-6.7); Basophils % 0.4 %; HCT 40.7 % (36.0-46.0); HGB 13.9 g/dL (11.2-15.7); Immature Grans % 0.4 %; Lymphocytes % 34.9 %; MCHC 34.2 % (32.0-36.0); MCV 85 fL (80-95); MPV 9.4 fL (8.0-11.0); Monocytes % 9.2 %; Neutrophils % 53.1 %; Platelet Count 281 10^3/uL (130-400); RDW 12.8 % (11.7-14.6); RDW-SD 39.9 fL; WBC 4.98 10^3/uL (4.4-10.8)
[2024-10-09 21:47] LABS: Anion Gap 9.2 mmol/L (3-11); BUN 17 mg/dL (7-18); CO2 26.8 mmol/L (21.0-32.0); CREATININE 0.6 mg/dL (0.55-1.02); Calcium 9.9 mg/dL (8.5-10.1); Chloride 99 mmol/L (98-107); Estimated GFR 101.42 (mL/min/1.73m2); Glucose 95 mg/dL (74-106); Potassium 4.6 mmol/L (3.5-5.1); Sodium 135 mmol/L (136-145); TSH (W/Ref FT4) 2.46 uIU/mL (0.36-3.74)
== END 2024-10-09 18:01 | disposition home or self-care (01) ==
LOC: LBN 18:00
PROVIDERS: PCP Physician Assistant Medical; Visit Provider Physician Assistant Medical
DX: R55 Syncope and collapse (principal)
CPT/HCPCS: 80048; 84443; 85025

== ENCOUNTER 2024-10-16 15:46 | Outpatient (REF) | payer MEDICAID, SELFPAY ==
[2024-10-16 15:55] LABS: Anion Gap 2.7 mmol/L (3-11); BUN 20 mg/dL (7-18); CO2 29.3 mmol/L (21.0-32.0); CREATININE 0.6 mg/dL (0.55-1.02); Calcium 9.3 mg/dL (8.5-10.1); Chloride 100 mmol/L (98-107); Estimated GFR 101.42 (mL/min/1.73m2); Glucose 98 mg/dL (74-106); Potassium 4.2 mmol/L (3.5-5.1); Sodium 132 mmol/L (136-145)
[2024-10-16 16:22] LABS: Hemoglobin A1C 5.6 % (<5.7)
== END 2024-10-16 15:47 | disposition home or self-care (01) ==
LOC: NCHCN 15:46
PROVIDERS: PCP Physician Assistant Medical; Visit Provider Physician Assistant Medical
DX: E87.1 Hypo-osmolality and hyponatremia (principal); R73.03 Prediabetes
CPT/HCPCS: 80048; 83036

== ENCOUNTER 2024-10-22 01:41 | Outpatient (CLI) | payer MEDICAID, SELFPAY ==
--- NOTE | 2024-10-22 | DI.US_ITS ---
Exam(s) US CAROTID EXAM: US CAROTID CLINICAL HISTORY: SYNCOPE,R55. TECHNIQUE: Ultrasound carotids performed using grayscale, color-flow, and spectral Doppler imaging. COMPARISON: No exams were available for comparison FINDINGS: RIGHT CAROTID ARTERY: Plaque: Minimal focal plaque at the common carotid bulb. Velocity elevation: None. LEFT CAROTID ARTERY: Plaque: No visible plaque Velocity elevation: None. VERTEBRAL ARTERIES: Antegrade flow. Soft tissues: Palpable abnormality on the right side of the neck corresponds to a 14 by 5 x 10 millim eter hypoechoic lymph node, consistent with a reactive lymph node. IMPRESSION: Minimal plaque at the right common carotid bulb. No evidence for hemodynamically significant carotid stenosis. Palpable abnormality at the right posterior lateral neck corresponds to a reactive lymph node. Criteria for Carotid Stenosis: Normal: ICA PSV <125 cm/s no plaque or intimal thickening is visible. <50% stenosis: ICA PSV <125 cm/s and plaque or intimal thickening is visible. 50-69% stenosis: ICA PSV is 125-250 cm/s and plaque is visible. >70% stenosis to near occlusion: ICA PSV >250 cm/s with visible plaque and luminal narrowing. DATA REPOSITORY:
== END 2024-10-22 02:01 ==
LOC: DI 01:41
PROVIDERS: PCP Physician Assistant Medical; Visit Provider Physician Assistant Medical
DX: R55 Syncope and collapse (principal); R93.89 Abnormal findings on diagnostic imaging of other specified body structures
CPT/HCPCS: 93880

== ENCOUNTER 2024-10-23 00:33 | Outpatient (CLI) | payer MEDICAID, SELFPAY ==
--- NOTE | 2024-10-23 07:30 | DI.US_ITS ---
APPROVED REPORT EXAM: Comprehensive 2D, Doppler, and color-flow Echocardiogram Patient Location: Out-Patient Tube Rebuilder: Nydia Potts RDCS (AE) Indications: Syncope and collapse Other Information Study Quality: Adequate Conclusion Mild concentric left ventricular hypertrophy. Ejection fraction is 58%. Septal motion suggesting an interventricular conduction delay Normal right ventricular size and function Mildly enlarged left atrium. Normal right atrial size. Atrial septum is thin and hypermobile There are no structural valvular abnormalities Mild to moderate mitral and aortic regurgitation Mild tricuspid regurgitation Estimated right ventricular systolic pressure is 34 mmHg Wall motion Left Ventricle The left ventricle is normal size. The left ventricular systolic function is normal. The left ventric ular ejection fraction is within the normal range. Mild concentric left ventricular hypertrophy. Sept al motion suggests IVCD There is no ventricular septal defect visualized. LVEF is 58%. Right Ventricle The right ventricle is normal size. The right ventricular systolic function is normal. Atria Left atrium is mildly dilated. The right atrium size is normal. Atrial septum is thin and hypermobile Aortic Valve The aortic valve is normal in structure. Aortic valve is trileaflet. There is no aortic valvular amadeo nosis. Mild to moderate aortic regurgitation. Mitral Valve The mitral valve is normal in structure. No evidence of mitral valve stenosis. Mild to moderate davis l regurgitation. Tricuspid Valve The tricuspid valve is normal in structure. There is no tricuspid valve stenosis. Mild tricuspid regu rgitation. The RVSP is 34 mmHg. Pulmonic Valve The pulmonary valve is normal in structure. There is no pulmonic valvular stenosis. Trace pulmonic re gurgitation. Great Vessels The aortic root is normal in size. Ascending aorta is not well visualized. Aortic arch is normal in c aliber. IVC is normal in size and collapses >50% with inspiration. Pericardium There is no pericardial effusion. 2D Dimensions IVSD d PLAX 1.12 cm F: 0.6-1.0 Ao Root d 2.84 cm F: 2.7 - 3.3 LVPW d PLAX 1.11 cm F: 0.6 - 1.0 LVID d PLAX 4.89 cm F: 3.8 - 5.2 LVDs 3.49 cm F: 2.2 - 3.5 LV EF Teichholz 54.9 % FS 28.55 % LV EDV (Teich) 112.1 mL LV ESV (Teich) 50.6 mL M-Mode TAPSE 2.17 cm (M/F) >1.7 Auto EF LV EDV A4C 135.5 mL LV EDV A2C 157.3 mL LV EDV BP 154.2 mL LV ESV A4C 61.4 mL LV ESV A2C 70.7 mL LV ESV BP 65.5 mL LVEF(%) A4C 54.7 % LVEF(%) A2C 55.1 % LVEF(%) BP 57.6 % LV SV A4C 74.1 ml LV SV A2C 86.6 ml LV SV BP 88.8 ml LV CO A4C 3.7 L/min LV CO A2C 4.3 L/min LV CO BP 4.0 L/min HR A4C 50.28 BPM HR A2C 49.52 BPM LV EDV Index (BP) LA Volume LA Length A4C 5.8 cm LA Length A2C 5.7 cm LA Area A4C s 21.77 cm2 LA Area A2C s 23.17 cm2 LA Vol A4C A-L 69.01 mL LA Vol A2C A-L 79.82 mL LA Vol Biplane A-L 75.0 mL LA Vol/BSA A4C A-L LA Vol/BSA A2C A-L LA Vol/BSA BP A-L 37.3 mL/m2 LA Vol A4C MOD 64.9 mL LA Vol A2C MOD 75.8 mL LA Vol BP MOD 70.8 mL RA Volume RA Area A4C 15.9 cm2 RA ESV A4C (A-L) 45.3mL RA Vol/BSA A4C A-L RA Length A4C 4.7 cm RA ESV A4C (MOD) 42.2mL LV Diastology MV E' medial 0.098 (>0.07 m/s) MV E Vmax 0.82 (0.4-1.3 m/s) MV E/E' MED 8.38 (<14) MV A Vmax 0.85 (0.4-1.3 m/s) MV E' lateral 0.123 (>0.1 m/s) E/A Ratio 1.0 MV E/E' LAT 6.67 (<14) MV E' Average 0.110 m/s MV E/E'(average) 7.43 Aortic Valve AoV Vmax 1.76 m/s LVOT Vmax 1.51 m/s AoV Peak Grad 45.2 mmHg LVOT Peak Grad 9.1 mmHg AoV Area (Vmax) 2.40 cm2 LVOT VTI 0.335 m AoV VTI 0.448 m LVOT Mean Grad 6.2 mmHg AoV Mean Cole. 1.31 m/s LVOT SV 93.74 mL AoV Mean Grad 7.6 mmHg LVOT Diam s 1.85 cm AoV Area (VTI) 2.09 cm2 AV Regurg Peak Gr. 12.35 mmHg Velocity Ratio 0.86 AR Decel [place] 2.1m/sec2 AR DT 2107 msec AR PHT 611 msec AR Vmax 4.42 m/s Mitral Valve MV DT 229 (160-240 msec) MV Vmax TIPS 0.85 m/s MV Mean Grad 1.0 (<2mmHg) MV VTI 0.256 m Pulmonary Valve PV Vmax 1.34 (0.5-1.5 m/s) RVOT Vmax 1.11 m/s PV Peak Grad 7.2 mmHg RVOT Peak Gr. 4.9 mmHg PV Mean Cole 0.85 m/s RVOT VTI 0.259 m PV Mean Grad 3.5 mmHg RVOT Mean Gr. 2.9 mmHg Tricuspid Valve RA Pressure 3.00 mmHg TR Vmax 2.79 m/s TV S' 0.16 m/s TR Peak Grad 31.0 mmHg RVSP (TR) 34.0 mmHg
== END 2024-10-23 00:53 ==
LOC: DI 00:33
PROVIDERS: PCP Physician Assistant Medical; Visit Provider Internal Medicine Cardiovascular Disease
DX: R55 Syncope and collapse (principal); I51.7 Cardiomegaly
CPT/HCPCS: 93306

== ENCOUNTER 2024-10-25 09:50 | Outpatient (RCR) | payer MEDICAID, SELFPAY | END 2024-10-26 23:59 | disposition home or self-care (01) | LOC: CARDOPNVT 09:50 | PROVIDERS: PCP Physician Assistant Medical; Visit Provider Internal Medicine Cardiovascular Disease | DX: R00.2 Palpitations (principal); I49.1 Atrial premature depolarization | CPT/HCPCS: 93246 ==

== ENCOUNTER 2024-12-03 08:57 | Outpatient (CLI) | payer MEDICAID, SELFPAY ==
--- NOTE | 2024-12-03 08:45 | RT.EKG_ITS ---
APPROVED REPORT Exam: Resting ECG Reason for Exam: LBBB Patient Location: O HR:75 bpm ECG Measurements Heart Rate 75 AXIS [place] 179 P 77 QRSd 139 QRS 31 QT 391 T 254 QTc 437 Conclusion Sinus rhythm...normal P axis, V-rate 50- 99 Probable left atrial enlargement...P >50mS, <-0.10mV V1 Left bundle branch block...QRSd>120, broad/notched R Baseline wander in lead(s) V2
== END 2024-12-03 08:58 | disposition home or self-care (01) ==
LOC: DI.CARD 08:58
PROVIDERS: PCP Physician Assistant Medical; Visit Provider Internal Medicine Cardiovascular Disease
DX: R93.1 Abnormal findings on diagnostic imaging of heart and coronary circulation (principal); I44.7 Left bundle-branch block, unspecified
CPT/HCPCS: 93010

== ENCOUNTER 2024-12-16 00:28 | Outpatient (CLI) | payer MEDICAID, SELFPAY ==
--- NOTE | 2024-12-16 06:45 | DI.NM_ITS ---
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, COVID 19, dizziness, alcohol dependence in remission, bipolar disorder, bilateral total knee replacement Cardiac Medications: pantoprazole, acetylcysteine, advair, methylfolate, vyvanse, albuterol sulfate, budesonide-formoterol, celebrex, clonidine, metformin Allergies: valium, oxycodone Cardiac Risk Factors: family hx, prediabetes, asthma, HLD, obesity Previous Cardiac Procedures: n/a Pretest Chest Pain Characteristics: No chest pain Exercise History: Indeterminate Physical Disabilities: n/a Lung Sounds: Clear to auscultation Heart Sounds: Regular Stress Test Details Test: Pharmacologic stress was paired with low level exercise. Reason for pharmacologic stress test: LBBB. Nuclear Acquisition: Rest Tc-99m/Stress Tc-99m 1 day Rest Isotope: Tc-99m Sestamibi. Dose: 10.0 Date: 12/16/2024 Injection Time: 11:00 Stress Isotope: Tc-99m Sestamibi. Dose: 30.0 Date: 12/16/2024 Injection Time: 1230 HR Resting HR Supine: 64 bpm Max Heart Rate (APMHR): 158 bpm Resting HR Standin bpm Target HR (85% APMHR): 134 bpm Max HR Achieved: 124 bpm % of APMHR: 78 Recovery HR: 88 bpm BP Resting BP Supine: 170/70 mmHg Resting BP Standin/100 mmHg Max BP: 192/100 mmHg Recovery BP: 178/88 mmHg ECG Resting ECG: Sinus Rhythm, LBBB Ectopy: n/a Stress ECG: Sinus Rhythm, LBBB ST Change: Nondiagnostic low heart rate Arrhythmia: None Recovery ECG: Sinus Rhythm, LBBB Recovery ST Change: Nondiagnostic low heart rate Recovery Arrhythmia: None Clinical Stress Symptoms: Dyspnea Angina Score: None Rate Pressure Product: 20908 Stress ECG Conclusion 1. Resting electrocardiogram showed a left bundle branch block 2. Patient underwent testing using pharmacologic stress with regadenoson 3. Peak heart rate achieved was 78% of maximal predicted for age 4. The electrocardiographic portion of the test was nondiagnostic 5. See MPI report Stress Test Summary STAGE HR BP SpO2 Symptoms NOTES Supine 64 170/70 Standing 78 192/100 1 min post Lexiscan injection 107 192/88 93 mod SOB 3 min post Lexiscan injection 98 186/88 92 1/10 CP 6 min post Lexiscan injection 88 178/88 98 Walking arabella performed r/t pt's baseline LBBB. Pt with moderate SOB and 1/10 chest pain during walk. All symptoms resolved by end of test. Pt left ambulatory in no acute distress. MPI Conclusion Myocardial perfusion is normal. There is no ischemia or evidence of prior infarction Calculated EF is 51% with normal wall motion
[2024-12-16] MEDS: Regadenoson 0.4 MG/5 ML SYR IVP (12:30)
== END 2024-12-16 00:48 ==
LOC: DI 00:28
PROVIDERS: PCP Physician Assistant Medical; Visit Provider Internal Medicine Cardiovascular Disease
DX: R07.9 Chest pain, unspecified (principal); I44.7 Left bundle-branch block, unspecified
CPT/HCPCS: 78452; 93017; J2785

== ENCOUNTER 2024-12-24 15:08 | Outpatient (REF) | payer MEDICAID, SELFPAY ==
[2024-12-24 20:53] LABS: ALT 31 U/L (14-59); AST 28 U/L (15-37); Albumin 4.3 g/dL (3.4-5.0); Alkaline Phosphatase 92 U/L (46-116); Anion Gap 9.6 mmol/L (3-11); BUN 16 mg/dL (7-18); Bilirubin, Total 0.9 mg/dL (0.2-1.0); CO2 25.4 mmol/L (21.0-32.0); Calcium 9.6 mg/dL (8.5-10.1); Chloride 100 mmol/L (98-107); Estimated GFR 101.42 (mL/min/1.73m2); Glucose 103 mg/dL (74-106); Potassium 4.4 mmol/L (3.5-5.1); Sodium 135 mmol/L (136-145); Total Protein 7.7 g/dL (6.4-8.2)
== END 2024-12-24 15:09 | disposition home or self-care (01) ==
LOC: NCHCN 15:08
PROVIDERS: PCP Physician Assistant Medical; Visit Provider Physician Assistant Medical
DX: E66.9 Obesity, unspecified (principal)
CPT/HCPCS: 80053

== ENCOUNTER 2025-01-23 06:08 | Day surgery (SDC) | payer MEDICAID, SELFPAY ==
[2025-01-23 06:28] VITALS: BP 117/73; PULSE 48; RESP 16; TEMP 36.6; O2SAT 98
[2025-01-23] MEDS: Lactated Ringers 1,000 ML 80 ML IV (06:56)
--- NOTE | 2025-01-23 07:10 | W.ANESPRE ---
General Info Date of Service Date Performed: 01/23/25 Height: 5 ft 4 in Weight: 92.249 kg Body Mass Index (BMI): 34.9 Surgical Procedure: Operation Date: 01/23/25 07:35 Proposed Procedure Side Surgeon shalom Rivera MD Meds Allergies and Home Medications Allergies Allergy/AdvReac Type Severity Reaction Status Date / Time diazepam (From Valium) AdvReac Mild Increase Verified 01/23/25 06:25 of depressive symptoms oxycodone HCl (From AdvReac Mild Itching Verified 01/23/25 06:25 OxyContin) Home Medication ?Medication ?Instructions ?Recorded pantoprazole 40 mg tablet,delayed 40 mg PO DAILY 01/18/13 release docusate sodium 100 mg capsule 100 mg PO DAILY PRN PRN 08/29/17 (Colace) cholecalciferol (vitamin D3) 25 25 mcg PO DAILY 01/30/21 mcg (1,000 unit) capsule acetylcysteine 600 mg capsule (NAC) 1,200 mg PO BID 06/20/23 azelastine 137 mcg (0.1 %) nasal 2 spray intranasal BID 06/20/23 spray fluticasone propionate 115 2 puff inhalation BID 06/20/23 mcg-salmeterol 21 mcg/actuation HFA inhaler (Advair HFA) levomefolate calcium 15 mg tablet 15 mg PO DAILY 06/20/23 (L-Methylfolate) lutein 20 mg tablet 20 mg PO DAILY 06/20/23 mupirocin 2 % topical ointment 1 applic topical BID 06/20/23 omega 3-cys-vcj-fish oil 60 mg-90 1 cap PO DAILY 06/20/23 mg-500 mg capsule (Fish Oil) turmeric 400 mg capsule 400 mg PO DAILY 06/20/23 lisdexamfetamine 70 mg capsule 50 mg PO DAILY 06/22/23 (Vyvanse) albuterol sulfate 90 mcg/actuation 2 puff inhalation Q4H PRN 04/01/24 aerosol inhaler (Ventolin HFA) budesonide-formoterol HFA 80 2 puff inhalation BID 04/01/24 mcg-4.5 mcg/actuation aerosol inhaler celecoxib 200 mg capsule (Celebrex) 400 mg PO DAILY 04/01/24 clonidine HCl 0.1 mg tablet 0.1 mg PO QHS 04/01/24 lisdexamfetamine 50 mg capsule 50 mg PO DAILY 11/28/24 (Vyvanse) metformin 500 mg tablet,extended 250 mg PO DAILY 11/28/24 release 24 hr naltrexone 50 mg tablet 50 mg PO DAILY 12/31/24 bisacodyl 5 mg tablet,delayed 5 mg PO ONCE #4 tabs 01/08/25 release (Dulcolax (bisacodyl)) polyethylene glycol 3350 17 17 g PO ONCE #238 grams 01/08/25 gram/dose oral powder magnesium oxide 500 mg PO DAILY #90 tabs 01/09/25 Current Visit Medications: Current Medications Generic Name Dose Route Start Last Admin Trade Name Freq PRN Reason Stop Dose Admin Ringer's Solution 1,000 mls @ 80 mls/hr 01/23/25 06:00 01/23/25 06:56 IV 01/23/25 23:59 80 mls/hr INFUSION DRE Administration IV Miscellaneous Supplies 1 each 01/23/25 06:00 Iv Access IV 01/23/25 23:59 DIRECTED DRE Sodium Biphosphate/Sodium Phosphate 133 ml 01/23/25 06:00 Na Phosphate Enema-Adult 133 Ml Btl AK 01/23/25 23:59 DIRECTED PRN Sodium Chloride 0 ml 01/23/25 06:00 Normal Saline Flush 10 Ml Syr IV 01/23/25 23:59 PRN PRN Sodium Chloride 0 ml 01/23/25 06:00 Normal Saline 10 Ml Vial IJ 01/23/25 23:59 DIRECTED PRN Sterile Water 0 ml 01/23/25 06:00 Water,Injection,Sterile 10 Ml Vial IJ 01/23/25 23:59 DIRECTED PRN PFSH Active Problems Active Problems: Problem Status Onset Code Mitral and aortic valve regurgitation Acute I08.0 Memory deficit Acute R41.3 Deviated nasal septum Acute J34.2 Tinnitus of right ear Acute H93.11 Sensorineural hearing loss (SNHL) of both ears Acute H90.3 Alcohol abuse, in remission Acute F10.11 GERD (gastroesophageal reflux disease) Chronic K21.9 Hx of hysterectomy Chronic Z90.710 Postmenopausal status Acute Z78.0 Low back pain Acute M54.5 Snoring Acute R06.83 ADHD Acute F90.9 Mild to moderate hearing loss Acute H91.8X9 Fibromyalgia Acute M79.7 Abnormal echocardiogram Acute R93.1 Vitamin D deficiency Acute E55.9 Bundle branch block, left Acute I44.7 Cough Acute R05 Dyspnea Acute R06.00 Elevated blood pressure reading Acute R03.0 Edema Acute R60.9 Pre-diabetes Acute R73.03 Tinnitus, bilateral Acute H93.13 Major depressive disorder, recurrent severe without psychotic features Acute F33.2 Medical History Medical History Pain in both lower legs COVID-19 Menopause Presence of total knee joint prosthesis Abnormal findings diagnostic imaging of heart and coronary circulation History of prediabetes Dizziness and giddiness Hand pain Pain in thoracic spine History of IBS Hearing loss of both ears Alcohol dependence in remission Severe recurrent major depression COVID Bipolar I disorder Surgical History Surgical History History of bladder surgery Hx of colonoscopy H/O tubal ligation Absence of both cervix and uterus, acquired History of total bilateral knee replacement Replacement of total knee joint Bilateral Abdominal hysterectomy EGD - MAC Colonoscopy - MAC Tobacco Smoking/Tobacco Use Status: Never Passive smoking exposure: Yes Alcohol Alcohol Intake: former Substance Use Substance use: Never Substance use type: does not use Vital Signs and Lab Results Vital Signs Most Recent Vital Signs in EMR: Most Recent Vital Signs Temp Pulse Resp BP Pulse Ox 36.6 C 48 L 16 117/73 98 01/23/25 06:28 01/23/25 06:28 01/23/25 06:28 01/23/25 06:28 01/23/25 06:28 Lab Results Complete Metabolic Panel: Sodium, (136-145) 135 mmol/L L 12/24/24, 14:35 Potassium, (3.5-5.1) 4.4 mmol/L 12/24/24, 14:35 Chloride, (98-107) 100 mmol/L 12/24/24, 14:35 Carbon Dioxide, (21.0-32.0) 25.4 mmol/L 12/24/24, 14:35 BUN, (7-18) 16 mg/dL 12/24/24, 14:35 Creatinine, (0.55-1.02) 0.6 mg/dL 12/24/24, 14:35 Est GFR (CKD-EPI 2020), (mL/min/1.73m2) 101.42 12/24/24, 14:35 Calcium, (8.5-10.1) 9.6 mg/dL 12/24/24, 14:35 Albumin, (3.4-5.0) 4.3 g/dL 12/24/24, 14:35 Glucose, (74-106) 103 mg/dL 12/24/24, 14:35 Liver Function Panel: ALT, (14-59) 31 U/L 12/24/24, 14:35 AST, (15-37) 28 U/L 12/24/24, 14:35 Imaging and Studies Imaging and Studies Study information below may be from another EMR and interpreted by another provider. Please see original notes in EMR for more complete details. EKG Summary: 11/2024:Conclusion Sinus rhythm...normal P axis, V-rate 50- 99 Probable left atrial enlargement...P >50mS, <-0.10mV V1 Left bundle branch block...QRSd>120, broad/notched R Baseline wander in lead(s) V2 Stress Test Summary: 11/2024:MPI Conclusion Myocardial perfusion is normal. There is no ischemia or evidence of prior infarction Calculated EF is 51% with normal wall motion Echocardiogram Summary: 09/2024:Conclusion Mild concentric left ventricular hypertrophy. Ejection fraction is 58%. Septal motion suggesting an interventricular conduction delay Normal right ventricular size and function Mildly enlarged left atrium. Normal right atrial size. Atrial septum is thin and hypermobile There are no structural valvular abnormalities Mild to moderate mitral and aortic regurgitation Mild tricuspid regurgitation Estimated right ventricular systolic pressure is 34 mmHg Carotid Artery Summary:: 09/2024:IMPRESSION: Minimal plaque at the right common carotid bulb. No evidence for hemodynamically significant carotid stenosis. Palpable abnormality at the right posterior lateral neck corresponds to a reactive lymph node. Pulmonary Function Summary: 10/2014:AIRWAY RESISTANCE: Normal. IMPRESSION: Normal pulmonary function study. The significant bronchodilator response that was seen is related to effort related difference. The pre-bronchodilator effort was poor. Clinical correlation recommended. Anesthesia Assessment and Plan Anesthesia History Personal History: No History of Anesthesia Complications Family History: No Family History of Anesthesia Complications Exercise Tolerance Exercise Tolerance: Metabolic Equivalents>4 Pertinent Negatives Pertinent Negatives: No Symptoms of GERD Cardiac & Pulmonary Exam Cardiac Exam: Normal S1/S2 Heart Sounds Pulmonary Exam: Clear Bilateral Breath Sounds Implantable Cardiac Device Does patient have a Pacemaker or an ICD?: No Airway Exam Known Difficult Airway: No Mallampati Class: 2 Mouth Opening: Normal (> 3cm) Thyromental Distance: Greater than 3 cm Neck Range of Motion: Full ROM Neck Circumference: Normal Teeth Condition: Edentulous ASA Classification ASA Score: ASA 3 Emergency Case?: No NPO Status NPO Status: NPO Clears >2 hours, Solids >8 hours Anesthesia Plan Resuscitation Status: Full Code Anesthesia Technique: General Anesthesia Airway Planned: Natural Airway Monitors Used: Standard Monitors
[2025-01-23 07:14] VITALS: BMI 34.9
--- NOTE | 2025-01-23 07:28 | W.PM.HP.N ---
Date of service: 01/23/25 Time of Service: 07:29 Assessment and Plan Assessment and plan (1) Screening for colorectal cancer: Status: Acute Assessment and plan: Discussed colonoscopy procedure risks, benefits, alternatives and expectations. proceed w screening colonoscopy. average risk. History of Present Illness Narrative: 64yo F here for screening colonoscopy. negative FH CRC. Neg ovarian or uterine cancer. no IBD or crohns.Has constipation but no major digestive issues. last colonoscopy was normal in 2012. Review of Systems All systems reviewed & are unremarkable except as noted in HPI and below PFSH All Active Problems (Updated 01/23/25 @ 07:30 by Natalie Rivera MD) Screening for colorectal cancer (Acute) Mitral and aortic valve regurgitation (Acute) Memory deficit (Acute) Deviated nasal septum (Acute) Tinnitus of right ear (Acute) Sensorineural hearing loss (SNHL) of both ears (Acute) Alcohol abuse, in remission (Acute) GERD (gastroesophageal reflux disease) (Chronic) Hx of hysterectomy (Chronic) Postmenopausal status (Acute) Low back pain (Acute) Snoring (Acute) ADHD (Acute) Mild to moderate hearing loss (Acute) Fibromyalgia (Acute) Abnormal echocardiogram (Acute) Vitamin D deficiency (Acute) Bundle branch block, left (Acute) Cough (Acute) Dyspnea (Acute) Elevated blood pressure reading (Acute) Edema (Acute) Pre-diabetes (Acute) Tinnitus, bilateral (Acute) Major depressive disorder, recurrent severe without psychotic features (Acute) Medical History Pain in both lower legs COVID-19 Menopause Presence of total knee joint prosthesis Abnormal findings diagnostic imaging of heart and coronary circulation History of prediabetes Dizziness and giddiness Hand pain Pain in thoracic spine History of IBS Hearing loss of both ears Alcohol dependence in remission Severe recurrent major depression COVID Bipolar I disorder Surgical History History of bladder surgery Hx of colonoscopy H/O tubal ligation Absence of both cervix and uterus, acquired History of total bilateral knee replacement Replacement of total knee joint Bilateral Abdominal hysterectomy EGD - MAC Colonoscopy - MAC Family History Mother Arthritis Family history of heart failure Father Hypertension FAMILY HX Alcohol use disorder FAMILY HX OF ALCOHOLISM Family history of heart failure Diabetes FAMILY HX OF DIABETES Daughter Family history of rheumatoid arthritis Social History Smoking/Tobacco Use Status: Never Smoking risk assessment performed?: Yes Alcohol Intake: former Drug use: Never Substance use type: does not use Housing: apartment What is your relationship status?: Panel score (0-1 are the most socially isolated patients): 0 Do you feel safe at home: Yes Do you feel safe in your relationship?: Yes Meds Allergies and Home Medications Allergies Allergy/AdvReac Type Severity Reaction Status Date / Time diazepam (From Valium) AdvReac Mild Increase Verified 01/23/25 06:25 of depressive symptoms oxycodone HCl (From AdvReac Mild Itching Verified 01/23/25 06:25 OxyContin) Home Medications ?Medication ?Instructions ?Recorded ?Confirmed ?Type pantoprazole 40 mg tablet,delayed 40 mg PO DAILY 01/18/13 01/23/25 History release docusate sodium 100 mg capsule 100 mg PO DAILY PRN PRN 08/29/17 01/23/25 History (Colace) cholecalciferol (vitamin D3) 25 25 mcg PO DAILY 01/30/21 01/23/25 History mcg (1,000 unit) capsule acetylcysteine 600 mg capsule (NAC) 1,200 mg PO BID 06/20/23 01/23/25 History azelastine 137 mcg (0.1 %) nasal 2 spray intranasal BID 06/20/23 01/23/25 History spray fluticasone propionate 115 2 puff inhalation BID 06/20/23 01/23/25 History mcg-salmeterol 21 mcg/actuation HFA inhaler (Advair HFA) levomefolate calcium 15 mg tablet 15 mg PO DAILY 06/20/23 01/23/25 History (L-Methylfolate) lutein 20 mg tablet 20 mg PO DAILY 06/20/23 01/23/25 History mupirocin 2 % topical ointment 1 applic topical BID 06/20/23 01/23/25 History omega 8-szy-vkv-fish oil 60 mg-90 1 cap PO DAILY 06/20/23 01/23/25 History mg-500 mg capsule (Fish Oil) turmeric 400 mg capsule 400 mg PO DAILY 06/20/23 01/23/25 History lisdexamfetamine 70 mg capsule 50 mg PO DAILY 06/22/23 01/23/25 History (Vyvanse) albuterol sulfate 90 mcg/actuation 2 puff inhalation Q4H PRN 04/01/24 01/23/25 History aerosol inhaler (Ventolin HFA) budesonide-formoterol HFA 80 2 puff inhalation BID 04/01/24 01/23/25 History mcg-4.5 mcg/actuation aerosol inhaler celecoxib 200 mg capsule (Celebrex) 400 mg PO DAILY 04/01/24 01/23/25 History clonidine HCl 0.1 mg tablet 0.1 mg PO QHS 04/01/24 01/23/25 History lisdexamfetamine 50 mg capsule 50 mg PO DAILY 11/28/24 01/23/25 History (Vyvanse) metformin 500 mg tablet,extended 250 mg PO DAILY 11/28/24 01/23/25 History release 24 hr naltrexone 50 mg tablet 50 mg PO DAILY 12/31/24 01/23/25 History bisacodyl 5 mg tablet,delayed 5 mg PO ONCE #4 tabs 01/08/25 01/23/25 Rx release (Dulcolax (bisacodyl)) polyethylene glycol 3350 17 17 g PO ONCE #238 grams 01/08/25 01/23/25 Rx gram/dose oral powder magnesium oxide 500 mg PO DAILY #90 tabs 01/09/25 01/23/25 Rx Exam Narrative Exam Narrative: awake, NAD eomi, MMM midline trachea, neck is symmetric PULM: normal resp effort, equal chest rise with respiration, no wheezing audible CARDIAC: normal PMI, no jvd, regular rate, normal perfusion abdomen is nondistended. extremities are without deformity, normal movement of all four extremities speech is clear and coherent mood and affect are congruent, no focal neurological deficits skin without rash Results Last Vital Signs Temp 97.9 F 01/23/25 06:28 Pulse 48 L 01/23/25 06:28 Resp 16 01/23/25 06:28 BP 117/73 01/23/25 06:28 Pulse Ox 98 01/23/25 06:28 Time Spent Time spent with Patient: <40 minutes Time was spent: preparing to see the patient(eg.review tests), indepentently interpreting results and counseling the patient
--- NOTE | 2025-01-23 07:35 | W.PM.DSUDISC ---
Date of service: 01/23/25 Discharge Plan Disposition Patient Disposition: Home Condition: Stable Discharge Details Attending Provider: Natalie Rivera Primary Care Provider: Shashi Verma Recommendations for Follow Up Recommended tests to be ordered by follow up provider: Timing of next colonoscopy is in 10 years Home Meds and New Rx's Prescriptions: Continued magnesium oxide 500 mg magnesium tablet 500 mg PO DAILY Qty: 90 3RF cholecalciferol (vitamin D3) 25 mcg (1,000 unit) capsule 25 mcg PO DAILY acetylcysteine [NAC] 600 mg capsule 1,200 mg PO BID fluticasone propion-salmeterol [Advair HFA] 115-21 mcg/actuation HFA aerosol inhaler 2 puff inhalation BID azelastine 137 mcg (0.1 %) aerosol,spray 2 spray intranasal BID Rx Instructions: administer into each nostril lutein 20 mg tablet 20 mg PO DAILY Rx Instructions: give with meal/snack turmeric 400 mg capsule 400 mg PO DAILY omega 3-awf-icc-fish oil [Fish Oil] 60-90-500 mg capsule 1 cap PO DAILY mupirocin 2 % ointment 1 applic topical BID levomefolate calcium [L-Methylfolate] 15 mg tablet 15 mg PO DAILY lisdexamfetamine [Vyvanse] 70 mg capsule 50 mg PO DAILY budesonide-formoterol 80-4.5 mcg/actuation HFA aerosol inhaler 2 puff inhalation BID clonidine HCl 0.1 mg tablet 0.1 mg PO QHS albuterol sulfate [Ventolin HFA] 90 mcg/actuation HFA aerosol inhaler 2 puff inhalation Q4H PRN celecoxib [Celebrex] 200 mg capsule 400 mg PO DAILY metformin 500 mg tablet extended release 24 hr 250 mg PO DAILY lisdexamfetamine [Vyvanse] 50 mg capsule 50 mg PO DAILY naltrexone 50 mg tablet 50 mg PO DAILY pantoprazole 40 MG tablet,delayed release (DR/EC) 40 mg PO DAILY docusate sodium [Colace] 100 MG capsule 100 mg PO DAILY PRN PRN Discontinued bisacodyl [Dulcolax (bisacodyl)] 5 mg tablet,delayed release (DR/EC) 5 mg PO ONCE Qty: 4 0RF Rx Instructions: Take per colonoscopy instructions provided by ordering providers office polyethylene glycol 3350 17 gram/dose powder 17 g PO ONCE Qty: 238 0RF Rx Instructions: Take per colonoscopy instructions provided by ordering providers office Discharge Instructions Additional Instructions: Colonoscopy today shows a normal healthy colon and rectum. Zero polyps. Your next colonoscopy will be due in 10 years. Activity:: Activity as Tolerated Diet:: As Tolerated Discharge Orders Discharge Orders: Discharge Order (Routine); Ordered 01/23/25 Ordered By: Natalie Rivera DS: Diagnosis Discharge Diagnosis (1) Screening for colorectal cancer: Status: Acute
--- NOTE | 2025-01-23 07:37 | W.COLOREPORT ---
Date of service: 01/23/25 Time of Service: 07:57 Colonoscopy Report Date of procedure: 01/23/25 Pre-op diagnosis general: screening for colorectal cancer Procedure: Colonoscopy Surgeon: Natalie Rivera Anesthesia Type: General:No Airway Estimated blood loss (mL): 0 Complications: None Disposition: same day Prep: Miralax/Dulcolax Procedure Description: Patient is here for routine screening colonoscopy. Informed consent was obtained and the patient was taken to the procedure area. The patient was placed in left lateral decubitus position on the procedure table. Timeout was performed. Anesthesia was induced. A lubricated colonoscope was inserted through the anus and passed to the cecum. The cecum was identified by the ileocecal valve and the appendiceal orifice. The scope was then slowly withdrawn and the colonic and rectal mucosa examined. TI intubated, normal in appearance. There are no colon or rectal mass lesions, polyps, AVMs. There is no inflammatory change. No diverticulosis was seen. The scope was retroflexed in the anorectal junction examined. Uncomplicated internal hemorrhoids present. Assessment and plan; Normal screening colonoscopy. Average risk patient. Next screening colonoscopy will be due in 10 years.
[2025-01-23 08:02] VITALS: BP 107/61; PULSE 58; RESP 16; TEMP 36.4; O2SAT 98
--- NOTE | 2025-01-23 08:22 | W.ANESPOSTOP ---
Postoperative Evaluation Date, Time and Location Date Performed: 01/23/25 Time Performed: 08:09 Patient Location: Day Surgery Unit Vital Signs Most Recent Imported Vital Signs: Most Recent Vital Signs Temp Pulse Resp BP Pulse Ox 36.4 C L 58 L 16 107/61 98 01/23/25 08:02 01/23/25 08:02 01/23/25 08:02 01/23/25 08:02 01/23/25 08:02 Pain Score Most Recent Pain Score: Most Recent Pain Score Pain Level 0 01/23/25 08:02 Assessment Mental Status: Awake (Alert & Oriented to Patient Baseline) Airway and Respiratory Function: Patent airway with normal (patient baseline) respiratory exam Cardiovascular Function: Hemodynamically Stable Hydration Status: Adequately Hydrated Nausea & Vomiting: No Nausea or Vomiting Pain: Pt. Denies Any Pain Peripheral Nerve Block: Patient did not receive a nerve block
[2025-01-23 08:28] VITALS: BP 142/99; PULSE 51; RESP 16; TEMP 36.2; O2SAT 99
== END 2025-01-23 08:52 | disposition home or self-care (01) ==
PROVIDERS: PCP Physician Assistant Medical; Visit Provider Surgery
PROC: 0DJD8ZZ Inspection of Lower Intestinal Tract, Via Natural or Artificial Opening Endoscopic (ICD-10-PCS; CPT 45378; principal; 2025-01-23 07:30)
DX: Z12.11 Encounter for screening for malignant neoplasm of colon (principal); Z12.12 Encounter for screening for malignant neoplasm of rectum; K64.8 Other hemorrhoids
CPT/HCPCS: 45378; J2704

== ENCOUNTER → 2025-04-22 01:37 | Outpatient (CLI) | payer MEDICAID, SELFPAY ==
--- NOTE | 2025-04-22 | DI.MAMMO_ITS ---
Exam(s) MAMMO SCREENING EXAM: MAMMO SCREENING CLINICAL HISTORY: SCREENING, Z12.31 TECHNIQUE: Bilateral full field digital CC and MLO mammographic images were obtained with 3D tomosynthesis and utilizing computer aided detection (CAD). COMPARISON: Comparison is made with prior examinations. FINDINGS: Masses/Architectural Distortion: No suspicious masses or areas of architectural distortion are present. There are scattered from the nodular density seen in both breasts which appears stable. Microcalcifications: No suspicious pleomorphic-type are seen. Skin Thickening/Nipple Retraction: None. IMPRESSION: 1. No significant interval change with no specific features of malignancy noted. 2. Unless there is more urgent need, screening mammography is recommended, as per [employer] guidelines. BI-RADS Category 2 - Benign Findings Breast Density - Category B - There are scattered areas of fibroglandular density. Breast density Category C or D implies that the patient has dense breast tissue. Dense breast tissue can make it harder to find cancer on a mammogram. Dense breast tissue is also associated with an increased risk of breast cancer. This information about the result of the mammogram report was provided to the patient to raise their awareness. Use this report when you speak with the patient about their risks for breast cancer, which includes their family history. At that time, you may recommend additional screening tests (Ultrasound or MRI) as these tests may add significant information. A negative radiographic report should not delay biopsy if a dominant or clinically suspicious mass is present. Up to ten percent of cancers are not identified on mammography. A negative report may reinforce clinical impression. Adenosis and dense breasts may obscure an underlying neoplasm. False positive reports average 6 to 10%. Patient will receive a letter notifying them of these results.
== END ==
LOC: DI 01:37
PROVIDERS: PCP Physician Assistant Medical; Visit Provider Physician Assistant Medical
DX: Z12.31 Encounter for screening mammogram for malignant neoplasm of breast (principal)
CPT/HCPCS: 77063; 77067

== ENCOUNTER 2025-05-07 14:28 | Outpatient (REF) | payer MEDICAID, SELFPAY ==
[2025-05-07 17:39] LABS: Vitamin D 25 Total 61 ng/mL (30-100)
[2025-05-07 17:46] LABS: Anion Gap 7.2 mmol/L (3-11); BUN 11 mg/dL (9-23); CO2 29.5 mmol/L (20.0-31.0); Calcium 9.7 mg/dL (8.3-10.6); Chloride 99 mmol/L (98-107); Glucose 92 mg/dL (74-106); Potassium 4.5 mmol/L (3.5-5.1); Sodium 136 mmol/L (136-145)
== END 2025-05-07 14:29 | disposition home or self-care (01) ==
LOC: NCHCN 14:28
PROVIDERS: PCP Physician Assistant Medical; Visit Provider Physician Assistant Medical
DX: I10 Essential (primary) hypertension (principal); R53.83 Other fatigue
CPT/HCPCS: 80048; 82306